=== PATIENT | male | born 1935 | race Caucasian/White ===

== ENCOUNTER 2020-06-08 13:54 | Inpatient (IN) | payer MEDICARE ==
--- NOTE | 2020-06-08 13:57 | ERPHSYRPT ---
- History of Present Illness Time Seen by Provider: 06/08/20 13:57 Source: patient, family Exam Limitations: clinical condition Physician History: This is an 84-year-old white male who has a history of hypertension and ? Atrial fibrillation on clonidine, lisinopril and diltiazem. He presents with increasing shortness of air over the last several days. Patient has significant generalized arthritis and is seen by pain specialist. The patient does experience shortness of breath with his intake of narcotic pain medicine. He has had increased the use of his pain medication the last several days. Patient is a patient of Dr. Leavitt. He has seen Dr. Duncan in the past. Patient's medication list does not appear to include an anticoagulation medication. Patient denies chest pain. He denies abdominal pain. Timing/Duration: day(s) Severity of Dyspnea-Max: moderate Severity of Dyspnea-Current: moderate Possible Cause: occasional episodes Modifying Factors: Improves With: activity, exertion Associated Symptoms: leg swelling, No chest pain/discomfort Allergies/Adverse Reactions: No Known Allergies Allergy (Verified 06/08/20 14:16) Home Medications: Acebutolol 200 mg [Sectral 200 MG] 200 mg PO DAILY 06/08/20 [History] Aspirin 81 gm Chew [Baby Aspirin 81 mg Chew] 81 mg PO DAILY 06/08/20 [History] Diltiazem HCl [Diltiazem 12Hr ER] 60 mg PO BID 06/08/20 [History] Hydrochlorothiazide 500 mg PO DAILY 06/08/20 [History] Hydrocodone Bit/Acetaminophen [Reliance 10-325 Tablet] 10 mg PO TID 06/08/20 [History] Lisinopril 10 mg [Zestril 10 MG] 10 mg PO DAILY 06/08/20 [History] Sertraline HCl 100 mg PO DAILY 06/08/20 [History] cloNIDine HCL [Clonidine HCl] 0.1 mg PO DAILY 06/08/20 [History] Travel Risk - International Travel Have you traveled outside of the country in past 3 weeks: No - Coronavirus Screening Are you exhibiting any of the following symptoms?: No Close contact with a COVID-19 positive Pt in past 14-21 Days: No - Review of Systems Constitutional: No Symptoms Eyes: No Symptoms Ears, Nose, & Throat: No Symptoms Respiratory: Dyspnea Cardiac: No Symptoms Abdominal/Gastrointestinal: No Symptoms Genitourinary Symptoms: No Symptoms Musculoskeletal: No Symptoms Skin: No Symptoms Neurological: No Symptoms Psychological: No Symptoms Endocrine: No Symptoms Hematologic/Lymphatic: No Symptoms Immunological/Allergic: No Symptoms All Other Systems: Reviewed and Negative - Nursing Vital Signs Nursing Vital Signs: Initial Vital Signs Temperature 98.0 F 06/08/20 13:54 Pulse Rate 106 H 06/08/20 13:54 Respiratory Rate 29 H 06/08/20 13:54 Blood Pressure 161/117 06/08/20 13:54 O2 Sat by Pulse Oximetry 95 06/08/20 13:54 Pain Scale Pain Intensity 6 - Physical Exam General Appearance: mild distress, alert, anxiety Eye Exam: PERRL/EOMI, eyes nml inspection Ears, Nose, Throat Exam: hearing grossly normal, normal ENT inspection, normal pharynx Neck Exam: normal inspection, non-tender, supple, full range of motion Respiratory Exam: normal breath sounds, lungs clear, respiratory distress, airway intact (Mild), No chest tenderness Cardiovascular/Chest Exam: irregular Abdominal/Gastrointestinal Exam: soft, normal bowel sounds, No tenderness Rectal Exam: not done Extremity Exam: non-tender, normal range of motion, pedal edema (Bilateral ankles) Neurologic Exam: alert, oriented x 3, cooperative, surplus property disposal agent II-XII nml as tested, normal mood/affect, nml cerebellar function, nml station & gait, sensation nml Skin Exam: normal color, warm, dry Lymphatic Exam: No adenopathy SpO2 Interpretation: hypoxic O2 Delivery: Room Air - Course Nursing assessment & vital signs reviewed: Yes EKG Interpreted by Me: RATE (91), A-fib, Other (No comparison EKG available) Ordered Tests: Active Orders 24 hr Category Date Time Status Document Management Specialist STAT Care 06/08/20 14:14 Active EKG-ER Only STAT Care 06/08/20 14:13 Active IV Insertion STAT Care 06/08/20 14:13 Active IV Insertion-2nd Peripheral STAT Care 06/08/20 16:34 Active Oxygen-ED Only Nasal Cannula 2 lpm Care 06/08/20 14:13 Active Pulse Oximetry (ED) STAT Care 06/08/20 14:18 Active CHEST 1 VIEW (PORTABLE) Stat Exams 06/08/20 14:13 Taken CHEST WITH CONTRAST [CT] Stat Exams 06/08/20 15:08 Taken ABG [ARTERIAL BLOOD GASES] Urgent Lab 06/08/20 16:40 Completed CBC W DIFF Stat Lab 06/08/20 14:00 Completed CMP Stat Lab 06/08/20 14:00 Completed D-DIMER QUANTITATIVE Stat Lab 06/08/20 14:00 Completed MAGNESIUM Stat Lab 06/08/20 14:00 Completed NT PRO BNP Stat Lab 06/08/20 14:00 Completed TROPONIN Q3H Lab 06/08/20 14:00 Completed TROPONIN Q3H Lab 06/08/20 17:15 Completed TROPONIN Q3H Lab 06/08/20 20:15 Ordered TROPONIN Q3H Lab 06/08/20 23:15 Ordered TROPONIN Q3H Lab 06/09/20 02:15 Ordered BiPap/CPAP STAT RT 06/08/20 16:50 Active Respiratory Therapy Assessment DAILY RT 06/08/20 16:51 Completed Transfer Order Routine Transfer 06/08/20 Ordered Medication Summary Discontinued Medications Generic Name Dose Route Start Last Admin Trade Name Freq PRN Reason Stop Dose Admin Albuterol/Ipratropium Confirm 06/08/20 16:20 Duoneb 0.5-3 Mg/3 Ml Neb Administered 06/08/20 16:21 Dose 3 ml IH .STK-MED ONE Albuterol/Ipratropium 3 ml 06/08/20 16:51 06/08/20 16:20 Duoneb 0.5-3 Mg/3 Ml Neb IH 06/08/20 16:52 3 ml STAT ONE Administration Furosemide 40 mg 06/08/20 15:09 06/08/20 16:04 Lasix 40 Mg/4 Ml IV 06/08/20 15:10 40 mg STAT ONE Administration Furosemide Confirm 06/08/20 16:00 Lasix 40 Mg/4 Ml Administered 06/08/20 16:01 Dose 40 mg .ROUTE .STK-MED ONE Morphine Sulfate 2 mg 06/08/20 14:52 06/08/20 15:03 Morphine Sulfate 2 Mg Inj IV 06/08/20 14:53 2 mg STAT ONE Administration Morphine Sulfate Confirm 06/08/20 14:59 Morphine Sulfate 2 Mg Inj Administered 06/08/20 15:00 Dose 2 mg .ROUTE .STK-MED ONE Morphine Sulfate 2 mg 06/08/20 17:17 06/08/20 17:38 Morphine Sulfate 2 Mg Inj IV 06/08/20 17:18 2 mg STAT ONE Administration Morphine Sulfate Confirm 06/08/20 17:31 Morphine Sulfate 2 Mg Inj Administered 06/08/20 17:32 Dose 2 mg .ROUTE .STK-MED ONE Nitroglycerin 0.4 mg 06/08/20 16:35 06/08/20 16:37 Nitrostat 0.4 Mg Tablet SL 06/08/20 16:36 0.4 mg STAT ONE Administration Ondansetron HCl 4 mg 06/08/20 14:53 06/08/20 15:02 Zofran 4 Mg/2 Ml Vial IV 06/08/20 14:54 4 mg STAT ONE Administration Ondansetron HCl Confirm 06/08/20 14:59 Zofran 4 Mg/2 Ml Vial Administered 06/08/20 15:00 Dose 4 mg .ROUTE .STK-MED ONE Lab/Rad Data: Laboratory Result Diagrams 06/08/20 14:00 06/08/20 14:00 Laboratory Results 06/08/20 06/08/20 06/08/20 Range/Units 17:15 16:40 16:39 WBC (4.0-10.5) K/mm3 RBC (4.1-5.6) M/mm3 Hgb (12.5-18.0) gm/dl Hct (42-50) % MCV (78-100) fl MCH (26-32) pg MCHC (32-36) g/dl RDW (11.5-14.0) % Plt Count (150-450) K/mm3 MPV (7.5-11.0) fl Gran % (36.0-66.0) % Eos # (Auto) (0-0.5) Absolute Lymphs (auto) (1.0-4.6) Absolute Monos (auto) (0.0-1.3) Lymphocytes % (24.0-44.0) % Monocytes % (0.0-12.0) % Eosinophils % (0.00-5.0) % Basophils % (0.0-0.4) % Absolute Granulocytes (1.4-6.9) Basophils # (0-0.4) D-Dimer (215-500) ng/mL Puncture Site LEFT RADIAL pCO2 53 H (35-45) mmHg pO2 96 (75-100) mmHg Base Excess 8.2 H (-2.0-2.0) O2 Saturation 96.4 (94-100) g/dF ABG pH 7.42 (7.35-7.45) ABG HCO3 34.4 H* (22-28) ABG O2 Sat (Measured) 96.5 (95-100) % Luis Enrique Test YES A-a Gradient 194 a/A Ratio 0.33 Hemoglobin 11.3 Carboxyhemoglobin 0.1 (0.0-6.9) % THgb Methemoglobin 0.0 L (1.4-1.5) % Temperature 37.0 C POC O2 Flow Rate 50 % Vent Mode BiPAP Inspiratory BiPAP 14 Expiratory BiPAP 7 Sodium (137-145) mmol/L Potassium 3.8 (3.5-5.1) mmol/L Chloride (98-107) mmol/L Carbon Dioxide (22-30) mmol/L Anion Gap (5-15) MEQ/L BUN (9-20) mg/dL Creatinine (0.66-1.25) mg/dL Estimated GFR ML/MIN Glucose (74-106) mg/dL Calcium (8.4-10.2) mg/dL Magnesium (1.6-2.3) mg/dL Total Bilirubin (0.2-1.3) mg/dL AST (17-59) U/L ALT (0-50) U/L Alkaline Phosphatase (38-126) U/L Troponin I < 0.012 (0.000-0.034) ng/mL NT-Pro-B Natriuret Pep (0-1800) pg/mL Serum Total Protein (6.3-8.2) g/dL Albumin (3.5-5.0) g/dL SARS-CoV-2 (PCR) POSITIVE A (NEGATIVE) 06/08/20 06/08/20 06/08/20 Range/Units 14:00 14:00 14:00 WBC (4.0-10.5) K/mm3 RBC (4.1-5.6) M/mm3 Hgb (12.5-18.0) gm/dl Hct (42-50) % MCV (78-100) fl MCH (26-32) pg MCHC (32-36) g/dl RDW (11.5-14.0) % Plt Count (150-450) K/mm3 MPV (7.5-11.0) fl Gran % (36.0-66.0) % Eos # (Auto) (0-0.5) Absolute Lymphs (auto) (1.0-4.6) Absolute Monos (auto) (0.0-1.3) Lymphocytes % (24.0-44.0) % Monocytes % (0.0-12.0) % Eosinophils % (0.00-5.0) % Basophils % (0.0-0.4) % Absolute Granulocytes (1.4-6.9) Basophils # (0-0.4) D-Dimer 2307 H* (215-500) ng/mL Puncture Site pCO2 (35-45) mmHg pO2 (75-100) mmHg Base Excess (-2.0-2.0) O2 Saturation (94-100) g/dF ABG pH (7.35-7.45) ABG HCO3 (22-28) ABG O2 Sat (Measured) (95-100) % Luis Enrique Test A-a Gradient a/A Ratio Hemoglobin Carboxyhemoglobin (0.0-6.9) % THgb Methemoglobin (1.4-1.5) % Temperature C POC O2 Flow Rate % Vent Mode Inspiratory BiPAP Expiratory BiPAP Sodium 138 (137-145) mmol/L Potassium 4.0 (3.5-5.1) mmol/L Chloride 99 (98-107) mmol/L Carbon Dioxide 36 H (22-30) mmol/L Anion Gap 7.5 (5-15) MEQ/L BUN 17 (9-20) mg/dL Creatinine 0.91 (0.66-1.25) mg/dL Estimated GFR > 60.0 ML/MIN Glucose 95 (74-106) mg/dL Calcium 9.6 (8.4-10.2) mg/dL Magnesium 2.1 (1.6-2.3) mg/dL Total Bilirubin 0.90 (0.2-1.3) mg/dL AST 34 (17-59) U/L ALT 39 (0-50) U/L Alkaline Phosphatase 63 (38-126) U/L Troponin I < 0.012 (0.000-0.034) ng/mL NT-Pro-B Natriuret Pep 2750 H (0-1800) pg/mL Serum Total Protein 7.9 (6.3-8.2) g/dL Albumin 4.6 (3.5-5.0) g/dL SARS-CoV-2 (PCR) (NEGATIVE) 06/08/20 Range/Units 14:00 WBC 8.9 (4.0-10.5) K/mm3 RBC 4.84 (4.1-5.6) M/mm3 Hgb 11.8 L (12.5-18.0) gm/dl Hct 40.6 L (42-50) % MCV 83.9 (78-100) fl MCH 24.4 L (26-32) pg MCHC 29.1 L (32-36) g/dl RDW 17.9 H (11.5-14.0) % Plt Count 408 (150-450) K/mm3 MPV 9.2 (7.5-11.0) fl Gran % 60.2 (36.0-66.0) % Eos # (Auto) 0.28 (0-0.5) Absolute Lymphs (auto) 1.73 (1.0-4.6) Absolute Monos (auto) 1.47 H (0.0-1.3) Lymphocytes % 19.4 L (24.0-44.0) % Monocytes % 16.5 H (0.0-12.0) % Eosinophils % 3.1 (0.00-5.0) % Basophils % 0.8 (0.0-0.4) % Absolute Granulocytes 5.36 (1.4-6.9) Basophils # 0.07 (0-0.4) D-Dimer (215-500) ng/mL Puncture Site pCO2 (35-45) mmHg pO2 (75-100) mmHg Base Excess (-2.0-2.0) O2 Saturation (94-100) g/dF ABG pH (7.35-7.45) ABG HCO3 (22-28) ABG O2 Sat (Measured) (95-100) % Luis Enrique Test A-a Gradient a/A Ratio Hemoglobin Carboxyhemoglobin (0.0-6.9) % THgb Methemoglobin (1.4-1.5) % Temperature C POC O2 Flow Rate % Vent Mode Inspiratory BiPAP Expiratory BiPAP Sodium (137-145) mmol/L Potassium (3.5-5.1) mmol/L Chloride (98-107) mmol/L Carbon Dioxide (22-30) mmol/L Anion Gap (5-15) MEQ/L BUN (9-20) mg/dL Creatinine (0.66-1.25) mg/dL Estimated GFR ML/MIN Glucose (74-106) mg/dL Calcium (8.4-10.2) mg/dL Magnesium (1.6-2.3) mg/dL Total Bilirubin (0.2-1.3) mg/dL AST (17-59) U/L ALT (0-50) U/L Alkaline Phosphatase (38-126) U/L Troponin I (0.000-0.034) ng/mL NT-Pro-B Natriuret Pep (0-1800) pg/mL Serum Total Protein (6.3-8.2) g/dL Albumin (3.5-5.0) g/dL SARS-CoV-2 (PCR) (NEGATIVE) - Progress Progress: improved Air Movement: good Progress Note: 06/08/20 17:11 CAT scan of the chest with contrast shows no evidence of pulmonary embolism. There are moderate bilateral pleural effusions. There is pulmonary edema present. There is also mild cardiomegaly. Medical decision making: I did discuss this patient and the patient's history and condition with Dr. Matthews. I also reviewed the patient's x-ray results and laboratory results. In addition I reviewed the EKG findings with her. I informed her that the patient is on BiPAP currently and is stabilizing on this mode of treatment. I gave her the results of the blood gas. We are awaiting the results of the rapid COVID-[address] Matthews accepts the patient for admission as long as the COVID-19 test is negative. If it is positive we will need to call the hospitalist on-call covering for COVID-19 positive patients. 06/08/20 17:51 This patient tested Covid positive. Therefore we canceled the admission with Dr. Han and then contacted Dr. Lawrence who is covering for the Covid unit. I reviewed the patient history, condition, laboratory results, EKG findings and x- ray results. Blood Culture(s) Obtained: No Antibiotics given: No Discussed with : Jaron Will see patient in: hospital (full admit) Counseled pt/family regarding: lab results, diagnosis, need for follow-up, rad results - Departure Departure Disposition: In-patient Admission Clinical Impression: CHF (congestive heart failure), Pleural effusion, Lab test positive for detection of COVID-19 virus Condition: Fair Critical Care Time: Yes Critical Care Time(excluding separately billable procedures): Critical 30-74 mins Referrals: MANJIT LEAVITT MD [Primary Care Provider] - Instructions: Heart Failure
[2020-06-08 14:37] LABS: Absolute Neutrophil Ct (ANC) 5.36 (1.4-6.9); BASOPHIL % 0.8 % (0.0-0.4); Basophil (Absolute #) 0.07 (0-0.4); Eosinophil % 3.1 % (0.00-5.0); Eosinophil (Absolute #) 0.28 (0-0.5); Hematocrit 40.6 % (42-50); Hemoglobin 11.8 gm/dl (12.5-18.0); Lymphocyte (Absolute #) 1.73 (1.0-4.6); Lymphocytes % 19.4 % (24.0-44.0); Mean Cell Volume 83.9 fl (78-100); Mean Corpuscular Hemoglobin 24.4 pg (26-32); Mean Corpuscular Hgb Concent. 29.1 g/dl (32-36); Mean Platelet Volume 9.2 fl (7.5-11.0); Monocyte (Absolute #) 1.47 (0.0-1.3); Monocytes % 16.5 % (0.0-12.0); Neutrophil % 60.2 % (36.0-66.0); Platelet Count 408 K/mm3 (150-450); Red Blood Count 4.84 M/mm3 (4.1-5.6); Red Cell Distribution Width 17.9 % (11.5-14.0); White Blood Count 8.9 K/mm3 (4.0-10.5)
[2020-06-08] MEDS ORDERED: MORPHINE SULFATE 2 MG INJ IV ONE ×2 (14:52→17:17)
[2020-06-08] MEDS ORDERED: Zofran 4 MG/2 ML VIAL IV ONE (14:53)
[2020-06-08 14:58] LABS: ALBUMIN 4.6 g/dL (3.5-5.0); ALKALINE PHOSPHATASE 63 U/L (38-126); ANION GAP 7.5 MEQ/L (5-15); BLOOD UREA NITROGEN 17 mg/dL (9-20); CHLORIDE 99 mmol/L (98-107); Calcium 9.6 mg/dL (8.4-10.2); Carbon Dioxide 36 mmol/L (22-30); Creatinine 1 0.91 mg/dL (0.66-1.25); EST GLOMERULAR FILTRATION RATE > 60.0 ML/MIN; Glucose 95 mg/dL (74-106); MAGNESIUM 2.1 mg/dL (1.6-2.3); NT PRO BNP 2750 pg/mL (0-1800); SGOT/AST 34 U/L (17-59); SGPT/ALT 39 U/L (0-50); SODIUM 138 mmol/L (137-145); Total Protein 7.9 g/dL (6.3-8.2)
[2020-06-08] MEDS ORDERED: MORPHINE SULFATE 2 MG INJ ONE ×2 (14:59→17:31)
[2020-06-08] MEDS ORDERED: Zofran 4 MG/2 ML VIAL ONE (14:59)
[2020-06-08] MEDS ORDERED: Lasix 40 MG/4 ML IV ONE (15:09)
[2020-06-08] MEDS ORDERED: Lasix 40 MG/4 ML ONE (16:00)
[2020-06-08] MEDS ORDERED: DUONEB 0.5-3 MG/3 ml Neb IH ONE ×2 (16:20→16:51)
[2020-06-08] MEDS ORDERED: Nitrostat 0.4 MG Tablet SL ONE (16:35)
[2020-06-08 16:52] LABS: A-aADO2 194; ABG HEMOGLOBIN 11.3; ABG POTASSIUM 3.8 (3.5-5.1); ARTERIAL BLD GAS O2 SATURATION 96.5 % (95-100); ARTERIAL BLOOD GAS BASE EXCESS 8.2 (-2.0-2.0); ARTERIAL BLOOD GAS FIO2 50 %; ARTERIAL BLOOD GAS PCO2 53 mmHg (35-45); ARTERIAL BLOOD GAS PO2 96 mmHg (75-100); ARTERIAL BLOOD GAS VENT MODE BiPAP; ARTERIAL BLOOD GAS pH 7.42 (7.35-7.45); CARBOXYHEMOGLOBIN 0.1 % THgb (0.0-6.9); HCO3- 34.4 (22-28); HGB O2 SAT 96.4 g/dF (94-100); paO2 pAO1 0.33
[2020-06-08 16:53] LABS: ABG SITE LEFT RADIAL; ALLEN TEST OK? YES
[2020-06-08] MEDS ORDERED: TYLENOL 325 MG PO PRN (19:38)
[2020-06-08] MEDS ORDERED: Lasix 40 MG/4 ML IV SCH (19:38)
[2020-06-08] MEDS ORDERED: Sodium Chloride 0.9% 1000 ML 1,000 ML IV SCH (19:38)
[2020-06-08] MEDS ORDERED: Zofran 4 MG/2 ML VIAL IV PRN (19:38)
--- NOTE | 2020-06-08 20:19 | XRAY ---
Indication: Short of breath. Elevated d-dimer. Multiple contiguous axial images obtained through the chest using 100 cc SUV 370 contrast and PE protocol. Comparison: None There is satisfactory opacification of the pulmonary arteries. However diffuse respiration artifact limits evaluation of the more distal lobar and segmental branches. No central pulmonary embolus. Moderate bilateral pleural effusions with mild bibasilar compressive atelectasis. Heart is enlarged. Aorta is mildly arteriosclerotic without aneurysm. No pathologic mediastinal lymphadenopathy. Bony thorax intact osteopenia, mild/moderate degenerative changes throughout the spine, old right rib fractures, and bilateral shoulder arthroplasty. Limited upper abdomen including adrenal glands are unremarkable. Impression: 1. Pulmonary embolus evaluation limited by respiration artifact. No large central pulmonary embolus. 2. Cardiomegaly and moderate bilateral pleural effusions favoring cardiac decompensation/fluid overload. Superimposed pneumonia not completely excluded. 3. Chronic bony findings. Comment: Preliminary interpretation was made by [facility]. No critical discrepancy.
--- NOTE | 2020-06-08 20:21 | XRAY ---
Indication: Short of breath. Comparison: None Portable chest demonstrates cardiomegaly, vascular congestion, and moderate bilateral pleural effusions favoring cardiac decompensation. Superimposed pneumonia not completely excluded. Incidental osteopenia, multilevel degenerative spondylosis, old right rib fractures, and bilateral shoulder arthroplasty.
[2020-06-08] MEDS ORDERED: Norco 10/325 MG Tablet PO PRN (20:24)
[2020-06-08] MEDS ORDERED: Sodium Chloride 0.9% 250 ML 250 ML IV ONE (21:30)
[2020-06-08] MEDS ORDERED: ENOXAPARIN SODIUM SQ SCH ×2 (22:00)
[2020-06-08] MEDS ORDERED: Cardizem 30 MG PO SCH (22:00)
[2020-06-08] MEDS ORDERED: REMDESIVIR 200 MG in Sodium Chloride 0.9% 500 ML 250 ML IV ONE (22:00)
[2020-06-08] MEDS ORDERED: Decadron 4 MG INJ IV SCH (22:00)
[2020-06-08] MEDS: Lasix 40 MG/4 ML IV SCH (23:25)
[2020-06-09 03:58] LABS: Absolute Neutrophil Ct (ANC) 8.61 (1.4-6.9); BASOPHIL % 0.2 % (0.0-0.4); Basophil (Absolute #) 0.02 (0-0.4); Eosinophil % 0.1 % (0.00-5.0); Eosinophil (Absolute #) 0.01 (0-0.5); Hematocrit 40.2 % (42-50); Lymphocyte (Absolute #) 0.63 (1.0-4.6); Lymphocytes % 6.7 % (24.0-44.0); Mean Cell Volume 83.1 fl (78-100); Mean Corpuscular Hemoglobin 24.8 pg (26-32); Mean Corpuscular Hgb Concent. 29.9 g/dl (32-36); Mean Platelet Volume 9.2 fl (7.5-11.0); Monocyte (Absolute #) 0.09 (0.0-1.3); Platelet Count 381 K/mm3 (150-450); Red Blood Count 4.84 M/mm3 (4.1-5.6); Red Cell Distribution Width 17.7 % (11.5-14.0); White Blood Count 9.4 K/mm3 (4.0-10.5)
[2020-06-09 04:03] LABS: ALBUMIN 4.4 g/dL (3.5-5.0); ALKALINE PHOSPHATASE 69 U/L (38-126); ANION GAP 11.6 MEQ/L (5-15); BLOOD UREA NITROGEN 16 mg/dL (9-20); CHLORIDE 96 mmol/L (98-107); Calcium 9.5 mg/dL (8.4-10.2); Carbon Dioxide 33 mmol/L (22-30); Creatinine 1 0.88 mg/dL (0.66-1.25); EST GLOMERULAR FILTRATION RATE > 60.0 ML/MIN; Glucose 146 mg/dL (74-106); Potassium 3.7 mmol/L (3.5-5.1); SGOT/AST 34 U/L (17-59); SGPT/ALT 36 U/L (0-50); SODIUM 138 mmol/L (137-145); Total Protein 7.6 g/dL (6.3-8.2)
[2020-06-09 05:38] LABS: A-aADO2 106; ABG HEMOGLOBIN 11.6; ABG POTASSIUM 3.4 (3.5-5.1); ABG SITE LEFT BRACHIAL; ARTERIAL BLD GAS O2 SATURATION 96.5 % (95-100); ARTERIAL BLOOD GAS FIO2 36 %; ARTERIAL BLOOD GAS PCO2 49 mmHg (35-45); ARTERIAL BLOOD GAS PO2 89 mmHg (75-100); ARTERIAL BLOOD GAS pH 7.51 (7.35-7.45); HCO3- 39.1 (22-28); HGB O2 SAT 96.5 g/dF (94-100); paO2 pAO1 0.46
[2020-06-09] MEDS: Lasix 40 MG/4 ML IV SCH (07:46)
[2020-06-09] MEDS ORDERED: NORCO 7.5/325 MG TAB PO PRN (09:52)
[2020-06-09] MEDS ORDERED: Zestril 10 MG PO SCH (10:00)
[2020-06-09] MEDS ORDERED: MSIR 15 MG PO SCH (10:00)
[2020-06-09] MEDS ORDERED: SECTRAL 200 MG PO SCH (10:00)
[2020-06-09] MEDS ORDERED: hydroDIURIL 25 MG PO SCH (10:00)
[2020-06-09] MEDS ORDERED: MORPHINE SULFATE 30 MG PO SCH (10:00)
[2020-06-09] MEDS ORDERED: NON-FORMULARY ITEM (Lisinopril [Lisinopril] 40 MG) PO SCH (10:00)
[2020-06-09] MEDS ORDERED: Decadron 4 MG INJ IV SCH (10:00)
[2020-06-09] MEDS ORDERED: Ativan 1 MG PO SCH (10:00)
[2020-06-09] MEDS ORDERED: Catapres 0.1 MG PO SCH (10:00)
[2020-06-09] MEDS: Zestril 20 MG PO SCH (10:27)
[2020-06-09] MEDS: ECOTRIN 81 MG PO SCH (10:28)
[2020-06-09] MEDS: hydroDIURIL 25 MG PO SCH (10:28)
[2020-06-09] MEDS: Catapres 0.1 MG PO SCH (10:28)
[2020-06-09] MEDS: SECTRAL 200 MG PO SCH ×2 (10:29→17:44)
[2020-06-09] MEDS: Pepcid 20 MG PO SCH (10:29)
[2020-06-09] MEDS: Ms Contin 15 MG PO SCH (10:29)
[2020-06-09] MEDS: Cardizem CD 180 MG PO SCH (10:29)
[2020-06-09] MEDS: ZOLOFT 50 MG TABLET PO SCH (10:30)
[2020-06-09] MEDS: Protonix 40MG Tablet PO SCH (10:30)
[2020-06-09] MEDS ORDERED: Ativan 2 MG/1 ML VIAL IV ONE (13:20)
[2020-06-09] MEDS ORDERED: Seroquel 100 MG PO ONE (14:09)
[2020-06-09] MEDS ORDERED: BENADRYL 50 MG/ML IV ONE (15:38)
[2020-06-09] MEDS ORDERED: Lanoxin 0.5 MG/2 ML INJECTION IV ONE ×4 (16:40→21:00)
[2020-06-09] MEDS ORDERED: Haldol 5 MG IM ONE (16:47)
[2020-06-09] MEDS ORDERED: MORPHINE SULFATE 10 MG/ML IV ONE (17:00)
[2020-06-09] MEDS: REMDESIVIR 100 MG in Sodium Chloride 0.9% 100 ML IVPB 100 ML IV SCH (18:09)
[2020-06-09] MEDS: ENOXAPARIN SODIUM SQ SCH (23:04)
[2020-06-10] MEDS: Catapres 0.1 MG PO SCH ×3 (01:46→21:25)
[2020-06-10] MEDS: Ms Contin 15 MG PO SCH ×3 (01:46→21:24)
[2020-06-10] MEDS: Protonix 40MG Tablet PO SCH ×3 (01:47→21:25)
[2020-06-10] MEDS: Cardizem CD 180 MG PO SCH ×3 (01:47→21:24)
[2020-06-10] MEDS: SECTRAL 200 MG PO SCH ×4 (01:47→21:25)
[2020-06-10 05:28] LABS: INR 1.56 (0.8-3.0); PROTIME 17.7 SECONDS (8.83-12.87)
[2020-06-10 05:35] LABS: ALBUMIN 3.1 g/dL (3.5-5.0); ALKALINE PHOSPHATASE 43 U/L (38-126); ANION GAP 5.8 MEQ/L (5-15); BLOOD UREA NITROGEN 26 mg/dL (9-20); CHLORIDE 98 mmol/L (98-107); Calcium 8.5 mg/dL (8.4-10.2); Carbon Dioxide 36 mmol/L (22-30); EST GLOMERULAR FILTRATION RATE > 60.0 ML/MIN; Glucose 120 mg/dL (74-106); Potassium 3.8 mmol/L (3.5-5.1); SGOT/AST 39 U/L (17-59); SGPT/ALT 26 U/L (0-50); SODIUM 136 mmol/L (137-145); Total Protein 5.5 g/dL (6.3-8.2)
[2020-06-10] MEDS: hydroDIURIL 25 MG PO SCH (11:02)
[2020-06-10] MEDS: Pepcid 20 MG PO SCH (11:02)
[2020-06-10] MEDS: Zestril 20 MG PO SCH (11:02)
[2020-06-10] MEDS: ECOTRIN 81 MG PO SCH (11:03)
[2020-06-10] MEDS: LASIX 20 MG PO SCH (11:03)
[2020-06-10] MEDS: ENOXAPARIN SODIUM SQ SCH ×2 (11:04→21:25)
[2020-06-10] MEDS: ZOLOFT 50 MG TABLET PO SCH (11:04)
[2020-06-10 11:13] LABS: Hematocrit 34.4 % (42-50); Hemoglobin 10.1 gm/dl (12.5-18.0); Mean Cell Volume 85.1 fl (78-100); Mean Corpuscular Hgb Concent. 29.4 g/dl (32-36); Mean Platelet Volume 9.6 fl (7.5-11.0); Platelet Count 340 K/mm3 (150-450); Red Blood Count 4.04 M/mm3 (4.1-5.6); Red Cell Distribution Width 17.4 % (11.5-14.0); White Blood Count 11.4 K/mm3 (4.0-10.5)
[2020-06-10] MEDS: Lanoxin 0.125MG TABLET PO SCH (11:30)
--- NOTE | 2020-06-10 11:54 | XRAY ---
Indication: Cough. CHF. Positive Covid 19. Comparison: June 08, 2020. Portable chest demonstrates diminished cardiomegaly and vascular congestion now within normal limits. Also diminished bibasilar effusions with mild/moderate residual. No new cardiopulmonary abnormalities. Impression: Cardiac decompensation/CHF improvement. Again superimposed pneumonia not completely excluded.
--- NOTE | 2020-06-10 13:40 | HP ---
CHIEF COMPLAINT: "Can't get my breath". HISTORY OF PRESENT ILLNESS: The patient is an 84 year old white male who said that he has been feeling bad for the last few weeks. The last couple of days he has been very short of breath and tonight it got worse and he came into the emergency room. He has chronic atrial fibrillation which has been controlled. He is not anticoagulated with anything other than baby aspirin however. He denies any high fever, chills, nausea, vomiting, change in bowel movements or change in taste. However his COVID test was positive in the emergency room. MEDICATIONS: Sectrol 200 q.d., baby aspirin 81 q.d., diltiazem extended release 60 b.i.d., hydrochlorothiazide 50 q.d., Vicodin 10/325 mg 1 every 8 hours, Lisinopril 10 q.d., Zoloft 100 q.d., clonidine 0.1 q.d. ALLERGIES: NKDA. RISK FACTORS: The patient has not been exposed that he knows of, has not traveled outside of the country or really outside of [place]. He does not where he might get COVID. REVIEW OF SYSTEMS: HEENT: Seems to hear and see okay. He has to have glasses to see the television. CHEST: Denies any chest pain. He denies any heart attacks. States he has atrial fibrillation. ABDOMEN: No nausea or vomiting. BACK: Arthritis of back. EXTREMITIES: Arthritis of knees. Takes Vicodin for that. PHYSICAL EXAMINATION: VITAL SIGNS: Temperature 98F, pulse 106, respirations 29, blood pressure 161/117. O2 saturation was 95% initially. GENERAL: The patient is alert, orientated, appropriately healthy looking 84 year old man who is calm and collected after he came through the emergency room. HEENT: Eyes - Pupils equal and reactive to light, sees fair. NECK: No JVD. CHEST: Few crackles bilateral. CVS: Slightly irregular. No murmurs. ABDOMEN: Soft. No masses or organomegaly. NEURO: He is alert and orientated. Heel to toe normal. Nitrating Acid Mixer equal. SKIN: No skin ulcers or bleeding. EXTREMITIES: Fair pulses. No edema. LAB DATA AND TESTS: While in the emergency room the patient's O2 saturation did drop under 70. His blood pressure went up. He responded to some morphine and Lasix. Chest x-ray showed bilateral infiltrate most likely heart failure. White count is normal. D-dimer is markedly elevated. Electrolytes are normal. The pH is 7.4, pO2 53, HCO3 34.4, base excess 8. Cardiac enzymes were negative. His D-dimer is markedly elevated at 2,300. Creatinine 0.91. Electrolytes normal. BNP markedly elevated at 2750. IMPRESSION: 1) Acute congestive heart failure. 2) Atrial fibrillation. 3) Acute COVID. PLAN: The patient responded well to oxygen, Lasix and morphine along with his regular medication. Will go ahead and start him on COVID pneumonia medications as may help particularly if there is congestive heart failure or COVID pneumonia. I will start him on some Decadron, Remdesivir, Lovenox. PROGNOSIS: Fair, will see in the morning.
--- NOTE | 2020-06-10 14:21 | PROG NOTE ---
CHIEF COMPLAINT: Severe agitation, rapid atrial fibrillation, COVID. HISTORY: The patient was seen this morning and was alert and orientated. He had to call the final block press operator to ask to be sent to the cafeteria for breakfast. He knew who I was but was very shaky and jittery. He said he could not sleep. As the day has gone on he has not slept despite giving him some oral Ativan and then some Seroquel because he became more agitated and confused. He had a jerking all over however he had this before any medications. I do not think its EPS (extrapyramidal symptom) but more related to stress. He is in atrial fibrillation at 120 to 150. I assume this is chronic although he was partially anticoagulated and put him back on his beta randall and Cardizem. On exam this evening [id number], he had some rales bilateral, did not seem to be in any respiratory distress. Heart was irregular and fast about 150. He has good strength all four extremities. He did have an intention tremor and some flappy movements. ADDITIONAL HISTORY: I called Mrs. Mcduffie up and stated that no one ever told them that he was in atrial fibrillation. He was short of breath for a week and saw Dr. Salazar, Pain Specialist, who decided to switch him off morphine, thought that might be a cause of it. But I initially thought chronic condition because he was on a beta randall and Cardizem. His CT scan showed some cardiomegaly as well as heart failure. IMPRESSION: The patient has: 1) Acute delirium multifactorial secondary probably to changed environment, possible the Decadron, age, isolation, chronic anxiety. 2) Tremor due to agitation. 3) Acute heart failure, controlled. 4) Atrial fibrillation with rapid rate 150. PLAN: Will try Haldol since the Seroquel did not work. Will try 5 mg of morphine just because he had been off of it for a few days though he did get some oral this morning. He is used to 15 mg a day. Will fully anticoagulated him since he is probably in chronic atrial fibrillation. Discontinue the Decadron due to delirium and rapid heart rate. Repeat the COVID test because his said he has not been out of the house and no one has visited them. She just goes to the store from time to time and she is completely asymptomatic.
[2020-06-10] MEDS: REMDESIVIR 100 MG in Sodium Chloride 0.9% 100 ML IVPB 100 ML IV SCH (15:15)
[2020-06-11 05:10] LABS: Absolute Neutrophil Ct (ANC) 7.25 (1.4-6.9); BASOPHIL % 0.5 % (0.0-0.4); Basophil (Absolute #) 0.06 (0-0.4); Eosinophil % 2.7 % (0.00-5.0); Eosinophil (Absolute #) 0.32 (0-0.5); Hematocrit 37.4 % (42-50); Hemoglobin 10.8 gm/dl (12.5-18.0); Lymphocyte (Absolute #) 2.66 (1.0-4.6); Lymphocytes % 22.1 % (24.0-44.0); Mean Cell Volume 84.4 fl (78-100); Mean Corpuscular Hemoglobin 24.4 pg (26-32); Mean Corpuscular Hgb Concent. 28.9 g/dl (32-36); Mean Platelet Volume 9.1 fl (7.5-11.0); Monocyte (Absolute #) 1.74 (0.0-1.3); Monocytes % 14.5 % (0.0-12.0); Neutrophil % 60.2 % (36.0-66.0); Platelet Count 330 K/mm3 (150-450); Red Blood Count 4.43 M/mm3 (4.1-5.6); Red Cell Distribution Width 17.5 % (11.5-14.0)
[2020-06-11 05:23] LABS: INR 1.39 (0.8-3.0); PROTIME 15.8 SECONDS (8.83-12.87)
[2020-06-11 05:26] LABS: ALBUMIN 3.3 g/dL (3.5-5.0); ALKALINE PHOSPHATASE 46 U/L (38-126); ANION GAP 3.9 MEQ/L (5-15); BLOOD UREA NITROGEN 27 mg/dL (9-20); CHLORIDE 99 mmol/L (98-107); Calcium 8.7 mg/dL (8.4-10.2); Carbon Dioxide 39 mmol/L (22-30); Creatinine 1 1.05 mg/dL (0.66-1.25); EST GLOMERULAR FILTRATION RATE > 60.0 ML/MIN; Glucose 110 mg/dL (74-106); Potassium 4.3 mmol/L (3.5-5.1); SGOT/AST 30 U/L (17-59); SGPT/ALT 27 U/L (0-50); SODIUM 138 mmol/L (137-145); Total Protein 5.9 g/dL (6.3-8.2)
[2020-06-11 06:19] LABS: Slide Review 1 YES
[2020-06-11] MEDS: Cardizem CD 180 MG PO SCH ×2 (08:59→21:29)
[2020-06-11] MEDS: ENOXAPARIN SODIUM SQ SCH ×2 (08:59→21:30)
[2020-06-11] MEDS: Catapres 0.1 MG PO SCH ×2 (08:59→21:29)
[2020-06-11] MEDS: ECOTRIN 81 MG PO SCH (08:59)
[2020-06-11] MEDS: LASIX 20 MG PO SCH (09:00)
[2020-06-11] MEDS: Lanoxin 0.125MG TABLET PO SCH (09:00)
[2020-06-11] MEDS: Ms Contin 15 MG PO SCH ×2 (09:00→21:30)
[2020-06-11] MEDS: hydroDIURIL 25 MG PO SCH (09:00)
[2020-06-11] MEDS: Protonix 40MG Tablet PO SCH ×2 (09:01→21:29)
[2020-06-11] MEDS: ZOLOFT 50 MG TABLET PO SCH (09:01)
[2020-06-11] MEDS: Zestril 20 MG PO SCH (09:01)
[2020-06-11] MEDS: Pepcid 20 MG PO SCH (09:01)
[2020-06-11] MEDS: SECTRAL 200 MG PO SCH ×3 (09:01→21:30)
--- NOTE | 2020-06-11 12:05 | ECHO ---
Transthoracic echocardiographic examination and color Doppler was done on 06/10/2020. INDICATION: The patient has diagnosis of COVID-19 infection, altered mental status, elevation of left ventricular function. IMPRESSION: 1) NO DEFINITE REGIONAL WALL MOTION ABNORMALITY. ESTIMATED GLOBAL LEFT VENTRICULAR EJECTION FRACTION BETWEEN 60 AND 65%. 2) TRACE AORTIC REGURGITATION. 3) MILD TRICUSPID REGURGITATION. RIGHT VENTRICULAR SYSTOLIC PRESSURE OF 37 MM OF MERCURY. 4) PROMINENT BASAL SEPTUM. 5) CONCENTRIC LEFT VENTRICULAR HYPERTROPHY. 6) MILDLY DILATED AORTIC ROOT. 7) LEFT VENTRICULAR DIASTOLIC DYSFUNCTION. The left ventricle is visualized and demonstrated adequate motion of all the segments. Estimated global left ventricular ejection fraction between 60 and 65%. The basal septum is prominent but there is no significant gradient across the left ventricular outflow tract. The mitral valve is seen and this opens adequately. No significant mitral regurgitation is seen. Tissue Doppler study of the lateral mitral annulus suggestive of left ventricular diastolic dysfunction. The aortic valve is thickened but opens adequately. There is trace aortic regurgitation. The visualized aortic root is mildly dilated and mildly calcified. The right side chambers are normal with normal right ventricular contractility. There is mild tricuspid regurgitation with a right ventricular systolic pressure of 37 mm of Mercury. The inferior vena cava appears to be normal.
[2020-06-11] MEDS: REMDESIVIR 100 MG in Sodium Chloride 0.9% 100 ML IVPB 100 ML IV SCH (16:45)
[2020-06-11] MEDS ORDERED: Coumadin 5 MG PO SCH (18:00)
[2020-06-12 05:19] LABS: Hematocrit 38.9 % (42-50); Hemoglobin 11.4 gm/dl (12.5-18.0); Mean Cell Volume 82.8 fl (78-100); Mean Corpuscular Hemoglobin 24.3 pg (26-32); Mean Corpuscular Hgb Concent. 29.3 g/dl (32-36); Mean Platelet Volume 9.1 fl (7.5-11.0); Platelet Count 349 K/mm3 (150-450); Red Cell Distribution Width 17.2 % (11.5-14.0); White Blood Count 10.9 K/mm3 (4.0-10.5)
[2020-06-12 05:32] LABS: ALBUMIN 3.7 g/dL (3.5-5.0); ALKALINE PHOSPHATASE 55 U/L (38-126); ANION GAP 7.4 MEQ/L (5-15); BLOOD UREA NITROGEN 26 mg/dL (9-20); CHLORIDE 98 mmol/L (98-107); Carbon Dioxide 35 mmol/L (22-30); Creatinine 1 0.92 mg/dL (0.66-1.25); EST GLOMERULAR FILTRATION RATE > 60.0 ML/MIN; Glucose 112 mg/dL (74-106); Potassium 3.7 mmol/L (3.5-5.1); SGOT/AST 31 U/L (17-59); SGPT/ALT 31 U/L (0-50); SODIUM 137 mmol/L (137-145); Total Protein 6.5 g/dL (6.3-8.2)
[2020-06-12 05:51] LABS: INR 1.44 (0.8-3.0); PROTIME 16.3 SECONDS (8.83-12.87)
[2020-06-12 08:48] VITALS: BP 164/77; O2SAT 93
[2020-06-12] MEDS: Pepcid 20 MG PO SCH (10:38)
[2020-06-12] MEDS: Zestril 20 MG PO SCH (10:38)
[2020-06-12] MEDS: Cardizem CD 180 MG PO SCH (10:38)
[2020-06-12] MEDS: Lanoxin 0.125MG TABLET PO SCH (10:38)
[2020-06-12] MEDS: Protonix 40MG Tablet PO SCH (10:39)
[2020-06-12] MEDS: ECOTRIN 81 MG PO SCH (10:39)
[2020-06-12] MEDS: hydroDIURIL 25 MG PO SCH (10:39)
[2020-06-12] MEDS: ZOLOFT 50 MG TABLET PO SCH (10:39)
[2020-06-12] MEDS: SECTRAL 200 MG PO SCH (10:39)
[2020-06-12] MEDS: Catapres 0.1 MG PO SCH (10:39)
[2020-06-12] MEDS: Ms Contin 15 MG PO SCH (10:39)
[2020-06-12] MEDS: LASIX 20 MG PO SCH (10:39)
[2020-06-12] MEDS: ENOXAPARIN SODIUM SQ SCH (10:40)
[2020-06-12 10:41] VITALS: PULSE 79
--- NOTE | 2020-06-12 12:03 | DS ---
ADMISSION DIAGNOSES: 1) COVID pneumonia. 2) Congestive heart failure. 3) Acute atrial fibrillation with rapid rate. DISCHARGE DIAGNOSES: 1) ACUTE HEART FAILURE. 2) ATRIAL FIBRILLATION WITH RAPID RATE. 3) DELIRIUM DUE TO HEART FAILURE AND SITUATIONAL THINGS. HISTORY: The patient came in with a low grade fever, was hypoxic. He was a little bit confused. He was in rapid atrial fibrillation with bilateral effusions. The COVID test was positive and this was repeated three days later with a test we sent off and it came back negative. He has not been out of the house in the last month nor has his . They have the groceries dropped by. They have not traveled so it seemed unlikely to have COVID and indeed it appears he did not have it. The atrial fibrillation was up to 140 to 150. He finally took some IV Lanoxin as well as his normal Cardizem and beta randall to get the rate down to 70's and 80's. After that happened he went to sleep, became less confused and less shortness of breath. Last chest x-ray showed minimal infiltrates and his heart rate shows atrial fibrillation with rate of about 80 or less. His echo is good and it showed no cardiac enlargement, really normal for his age. He was treated initially with Remdesivir, Solu-Cortef, oxygen and his home medicines. As he got worse we added digoxin since he was unclothing himself and off the wall. We followed up with Seroquel and finally Haldol which seemed to stop the agitation. He was on narcotics for pain and I actually gave him 5 of morphine which once again seemed to put him to sleep and help him relax. We did that once and after that we continued his morphine 15 mg in the morning and 5 at night. He sees a pain specialist for that. This morning his chest is clear. His heart sounds are slightly irregular but soft. He is in good spirits. He is alert and orientated. DISPOSITION: The patient is to be sent home on Xarelto 20 mg a day for 30 days, Lanoxin 0.25 once a day for rate control. He is already on a beta randall, SOLIS inhibitor and Lasix. Discharged to follow up with Dr. Leavitt in a week. He may be a candidate in a month or two to cardiovert if he does not convert on his own. He is on Xarelto 20 but if that is unaffordable will start him with Coumadin 5, get Coumadin Clinic to follow him that might be a problem since [place] of [place] and getting transportation for lab work I guess. His other home medicines are Sectral 200 mg q.d., aspirin 81 mg, clonidine 0.1 b.i.d., diltiazem 180 b.i.d., hydrochlorothiazide 50 q.d., hydrocodone 7.5 every four hours PRN, Lisinopril 40 q.d., MS Contin 15 bedtime, MS Contin 30 in the morning, Protonix 40 q.d., Zoloft 100 q.d. The patient is to return for shortness of breath, confusion, chest pain. Again the repeat COV-BOUCHRA sent off to [place] was negative. The nucleic acid amplification test should be more accurate than the initial quick test. I note his D-dimer was elevated at 1,538. His BNP was markedly elevated when he came in and his chest x-ray has improved quite a bit. His white count was 10.9 when he came in. Hemoglobin 11.4. PROGNOSIS: Fair.
== END 2020-06-12 12:00 | disposition home or self-care (01) | DRG 291 ==
LOC: ED 13:54 → MED SURG 19:25
PROVIDERS: ADMIT Family Medicine; ATTEND Family Medicine
DX: I50.9 Heart failure, unspecified (principal); U07.1 COVID-19; J12.89 Other viral pneumonia; I48.91 Unspecified atrial fibrillation; R41.0 Disorientation, unspecified; R45.1 Restlessness and agitation; R25.1 Tremor, unspecified; Z79.01 Long term (current) use of anticoagulants; M19.90 Unspecified osteoarthritis, unspecified site; I51.7 Cardiomegaly; Z79.899 Other long term (current) drug therapy
CPT/HCPCS: 36415; 36600; 71045; 71260; 80053; 82375; 82803; 83735; 83880; 84484; 85025; 85027; 85379; 85610; 93005; 93041; 93306; 94003; 94640; 94762; 96374; 96375; 96376; 99291; U0003; 36000; 94002; 94760; 99285; J1100; J1160; J1200; J1630; J1650; J1940; J2060; J2270; J2405; A9270-GY

== ENCOUNTER 2020-07-10 11:49 | Observation (INO) | payer MEDICARE ==
--- NOTE | 2020-07-10 11:51 | ERPHSYRPT ---
- History of Present Illness Time Seen by Provider: 07/10/20 11:50 Source: patient, EMS Exam Limitations: clinical condition Physician History: Is an 84-year-old male patient of Dr. Maldonado who presents with worsening shortness of breath over the last several days. Patient was diagnosed with COVID-19 in May 2020. Patient has a history of hypertension and atrial fib rillation on clonidine diltiazem lisinopril digoxin. Patient states that he does normally increase his shortness of air when he uses his narcotics for generalized arthritis. Patient's pain specialist has tried to decrease the patient off of narcotics. 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 Patient denies chest pain. Patient denies abdominal pain. Timing/Duration: today Activities at Onset: none Severity of Dyspnea-Max: moderate Severity of Dyspnea-Current: moderate Possible Cause: frequent episodes Modifying Factors: Improves With: activity (Worsens), oxygen (Improves), rest (Improves) Associated Symptoms: anxiety, ankle swelling, No chest pain/discomfort Allergies/Adverse Reactions: No Known Allergies Allergy (Verified 06/08/20 14:16) Home Medications: Acebutolol 200 mg [Sectral 200 MG] 200 mg PO TID 06/08/20 [History] Aspirin 81 gm Chew [Baby Aspirin 81 mg Chew] 81 mg PO DAILY 06/08/20 [History] Diltiazem HCl [Diltiazem 24Hr Cd] 180 mg PO BID 06/08/20 [History] Hydrochlorothiazide 25 mg PO DAILY 06/08/20 [History] Hydrocodone/Acetaminophen [Hydrocodone-Acetamin 7.5-325] 1 tab PO Q4H PRN PRN 06/08/20 [History] Morphine Sulfate Cr 15 mg [Ms Contin 15 MG] 15 mg PO HS 06/08/20 [History] Morphine Sulfate Cr 30 mg [Ms Contin 30 mg] 30 mg PO DAILY 06/08/20 [History] PANTOPRAZOLE 40 mg Tablet [Protonix 40MG Tablet] 40 mg PO BID 06/08/20 [History] Sertraline HCl 100 mg PO DAILY 06/08/20 [History] cloNIDine HCL [Clonidine HCl] 0.1 mg PO BID 06/08/20 [History] lisinopriL [Lisinopril] 40 mg PO DAILY 06/08/20 [History] Hx Tetanus, Diphtheria Vaccination/Date Given: Yes Hx Influenza Vaccination/Date Given: Yes Hx Pneumococcal Vaccination/Date Given: Yes Travel Risk - International Travel Have you traveled outside of the country in past 3 weeks: No - Coronavirus Screening Symptoms: Shortness of Breath Close contact with a COVID-19 positive Pt in past 14-21 Days: No - Review of Systems Constitutional: Weakness Eyes: No Symptoms Ears, Nose, & Throat: No Symptoms Respiratory: Dyspnea (Neck), Dyspnea on Exertion (GARCIA) Cardiac: No Symptoms Abdominal/Gastrointestinal: No Symptoms Genitourinary Symptoms: No Symptoms Musculoskeletal: No Symptoms Skin: No Symptoms Neurological: No Symptoms Psychological: No Symptoms Endocrine: No Symptoms Hematologic/Lymphatic: No Symptoms Immunological/Allergic: No Symptoms All Other Systems: Reviewed and Negative - Past Medical History Pertinent Past Medical History: Yes Cardiac History: Hypertension Musculoskeletal History: Arthritis GI Medical History: Other Psycho-Social History: Depression Other Medical History: bladder cancer 2011. - Past Surgical History Past Surgical History: Yes Neuro Surgical History: No Pertinent History Cardiac: No Pertinent History Respiratory: No Pertinent History Gastrointestinal: Other Genitourinary: No Pertinent History Musculoskeletal: Orthopedic Surgery Male Surgical History: No Pertinent History Other Surgical History: bilat hip replacement, bilat shoulder replacement. 1st layer bladder removed - Social History Smoking Status: Never smoker Exposure to second hand smoke: No Drug Use: none Patient Lives Alone: No - Nursing Vital Signs Nursing Vital Signs: Initial Vital Signs Temperature 98.3 F 07/10/20 12:00 Pulse Rate 63 07/10/20 12:00 Respiratory Rate 20 07/10/20 12:00 Blood Pressure 204/106 07/10/20 12:00 O2 Sat by Pulse Oximetry 96 07/10/20 12:00 Pain Scale Pain Intensity 0 - Physical Exam General Appearance: moderate distress, alert, anxiety Eye Exam: PERRL/EOMI Ears, Nose, Throat Exam: hearing grossly normal Neck Exam: normal inspection, non-tender, supple, full range of motion Respiratory Exam: respiratory distress, airway intact, crackles/rales (Bibasilar), No chest tenderness Cardiovascular/Chest Exam: normal heart sounds, regular rate/rhythm, normal peripheral pulses Abdominal/Gastrointestinal Exam: soft, normal bowel sounds, No tenderness Rectal Exam: not done Extremity Exam: non-tender, normal range of motion, normal inspection, normal capillary refill, no calf tenderness, pedal edema (Bilateral feet and ankles) Neurologic Exam: alert, oriented x 3, cooperative, gas meter repairer II-XII nml as tested Skin Exam: normal color, warm, dry Lymphatic Exam: No adenopathy SpO2 Interpretation: normal O2 Delivery: Nasal Cannula - Course Nursing assessment & vital signs reviewed: Yes EKG Interpreted by Me: RATE (65), A-fib, Other (PVCs on this EKG. When compared to EKG dated 06/08/2020 this is a new finding. Otherwise there is no signific ant change.) Ordered Tests: Active Orders 24 hr Category Date Time Status Clinical Genetics Laboratory Chief STAT Care 07/10/20 12:04 Active EKG-ER Only STAT Care 07/10/20 12:03 Active IV Insertion STAT Care 07/10/20 12:03 Active Pulse Oximetry (ED) STAT Care 07/10/20 12:03 Active CHEST 1 VIEW (PORTABLE) Stat Exams 07/10/20 12:03 Completed CBC W DIFF Stat Lab 07/10/20 12:12 Completed CMP Stat Lab 07/10/20 12:12 Completed Lactic Acid Stat Lab 07/10/20 12:02 Completed MAGNESIUM Stat Lab 07/10/20 12:12 Completed NT PRO BNP Stat Lab 07/10/20 12:12 Completed PROTIME WITH INR Stat Lab 07/10/20 12:03 Completed TROPONIN Q3H Lab 07/10/20 12:15 Completed TROPONIN Q3H Lab 07/10/20 15:11 Completed TROPONIN Q3H Lab 07/10/20 18:15 Ordered TROPONIN Q3H Lab 07/10/20 21:15 Ordered TROPONIN Q3H Lab 07/11/20 00:15 Ordered Transfer Order Routine Transfer 07/10/20 Ordered Medication Summary Discontinued Medications Generic Name Dose Route Start Last Admin Trade Name Freq PRN Reason Stop Dose Admin Enalaprilat 1.25 mg 07/10/20 16:09 Vasotec I.V. 2.5 Mg IV 07/10/20 16:10 STAT ONE Furosemide 40 mg 07/10/20 13:08 07/10/20 13:30 Lasix 40 Mg/4 Ml IV 07/10/20 13:09 40 mg STAT ONE Administration Furosemide Confirm 07/10/20 13:24 Lasix 40 Mg/4 Ml Administered 07/10/20 13:25 Dose 40 mg .ROUTE .STK-MED ONE Lab/Rad Data: Laboratory Result Diagrams 07/10/20 12:12 07/10/20 12:12 Laboratory Results 07/10/20 07/10/20 07/10/20 Range/Units 15:11 12:15 12:12 WBC (4.0-10.5) K/mm3 RBC (4.1-5.6) M/mm3 Hgb (12.5-18.0) gm/dl Hct (42-50) % MCV (78-100) fl MCH (26-32) pg MCHC (32-36) g/dl RDW (11.5-14.0) % Plt Count (150-450) K/mm3 MPV (7.5-11.0) fl Gran % (36.0-66.0) % Eos # (Auto) (0-0.5) Absolute Lymphs (auto) (1.0-4.6) Absolute Monos (auto) (0.0-1.3) Lymphocytes % (24.0-44.0) % Monocytes % (0.0-12.0) % Eosinophils % (0.00-5.0) % Basophils % (0.0-0.4) % Absolute Granulocytes (1.4-6.9) Basophils # (0-0.4) PT (8.83-12.87) SECONDS INR (0.8-3.0) Sodium (137-145) mmol/L Potassium (3.5-5.1) mmol/L Chloride (98-107) mmol/L Carbon Dioxide (22-30) mmol/L Anion Gap (5-15) MEQ/L BUN (9-20) mg/dL Creatinine (0.66-1.25) mg/dL Estimated GFR ML/MIN Glucose (74-106) mg/dL Lactic Acid (0.4-2.0) Calcium (8.4-10.2) mg/dL Magnesium (1.6-2.3) mg/dL Total Bilirubin (0.2-1.3) mg/dL AST (17-59) U/L ALT (0-50) U/L Alkaline Phosphatase (38-126) U/L Troponin I 0.023 0.021 (0.000-0.034) ng/mL NT-Pro-B Natriuret Pep (0-1800) pg/mL Serum Total Protein (6.3-8.2) g/dL Albumin (3.5-5.0) g/dL Digoxin 1.5 (0.8-1.9) ng/mL Slides for Path Review 07/10/20 07/10/20 07/10/20 Range/Units 12:12 12:12 12:03 WBC 11.3 H (4.0-10.5) K/mm3 RBC 4.38 (4.1-5.6) M/mm3 Hgb 10.7 L (12.5-18.0) gm/dl Hct 37.7 L (42-50) % MCV 86.1 (78-100) fl MCH 24.4 L (26-32) pg MCHC 28.4 L (32-36) g/dl RDW 17.5 H (11.5-14.0) % Plt Count 384 (150-450) K/mm3 MPV 9.3 (7.5-11.0) fl Gran % 70.6 H (36.0-66.0) % Eos # (Auto) 0.25 (0-0.5) Absolute Lymphs (auto) 1.35 (1.0-4.6) Absolute Monos (auto) 1.63 H (0.0-1.3) Lymphocytes % 12.0 L (24.0-44.0) % Monocytes % 14.5 H (0.0-12.0) % Eosinophils % 2.2 (0.00-5.0) % Basophils % 0.7 (0.0-0.4) % Absolute Granulocytes 7.96 H (1.4-6.9) Basophils # 0.08 (0-0.4) PT 30.4 H (8.83-12.87) SECONDS INR 2.66 (0.8-3.0) Sodium 144 (137-145) mmol/L Potassium 4.5 (3.5-5.1) mmol/L Chloride 101 (98-107) mmol/L Carbon Dioxide 37 H (22-30) mmol/L Anion Gap 10.5 (5-15) MEQ/L BUN 22 H (9-20) mg/dL Creatinine 0.91 (0.66-1.25) mg/dL Estimated GFR > 60.0 ML/MIN Glucose 132 H (74-106) mg/dL Lactic Acid (0.4-2.0) Calcium 9.2 (8.4-10.2) mg/dL Magnesium 2.1 (1.6-2.3) mg/dL Total Bilirubin 1.10 (0.2-1.3) mg/dL AST 25 (17-59) U/L ALT 33 (0-50) U/L Alkaline Phosphatase 66 (38-126) U/L Troponin I (0.000-0.034) ng/mL NT-Pro-B Natriuret Pep 4930 H (0-1800) pg/mL Serum Total Protein 7.1 (6.3-8.2) g/dL Albumin 4.0 (3.5-5.0) g/dL Digoxin (0.8-1.9) ng/mL Slides for Path Review YES 07/10/20 Range/Units 12:02 WBC (4.0-10.5) K/mm3 RBC (4.1-5.6) M/mm3 Hgb (12.5-18.0) gm/dl Hct (42-50) % MCV (78-100) fl MCH (26-32) pg MCHC (32-36) g/dl RDW (11.5-14.0) % Plt Count (150-450) K/mm3 MPV (7.5-11.0) fl Gran % (36.0-66.0) % Eos # (Auto) (0-0.5) Absolute Lymphs (auto) (1.0-4.6) Absolute Monos (auto) (0.0-1.3) Lymphocytes % (24.0-44.0) % Monocytes % (0.0-12.0) % Eosinophils % (0.00-5.0) % Basophils % (0.0-0.4) % Absolute Granulocytes (1.4-6.9) Basophils # (0-0.4) PT (8.83-12.87) SECONDS INR (0.8-3.0) Sodium (137-145) mmol/L Potassium (3.5-5.1) mmol/L Chloride (98-107) mmol/L Carbon Dioxide (22-30) mmol/L Anion Gap (5-15) MEQ/L BUN (9-20) mg/dL Creatinine (0.66-1.25) mg/dL Estimated GFR ML/MIN Glucose (74-106) mg/dL Lactic Acid 1.8 (0.4-2.0) Calcium (8.4-10.2) mg/dL Magnesium (1.6-2.3) mg/dL Total Bilirubin (0.2-1.3) mg/dL AST (17-59) U/L ALT (0-50) U/L Alkaline Phosphatase (38-126) U/L Troponin I (0.000-0.034) ng/mL NT-Pro-B Natriuret Pep (0-1800) pg/mL Serum Total Protein (6.3-8.2) g/dL Albumin (3.5-5.0) g/dL Digoxin (0.8-1.9) ng/mL Slides for Path Review - Progress Progress: improved, re-examined Air Movement: fair Progress Note: 07/10/20 15:20 Chest x-ray reveals increasing cardiomegaly with increase in vascular congestion compared to prior chest x-ray. There are moderate bibasilar pleural effusions present. 07/10/20 16:14 Medical decision making: This patient has worsening congestive heart failure as well as hypertension. Patient, clinically, is having more difficulty breathing. I spoke with Dr. Maldonado, who is the patient's primary care physician. I reviewed the patient history, condition, laboratory work-up, chest x-ray findings and EKG results. He agrees to accept the patient to the hospital. He will be on a monitored bed. Patient will be evaluated by respiratory therapy daily as well as as needed. Patient will be diuresed. Blood Culture(s) Obtained: Yes Antibiotics given: No Discussed with : Sheela Counseled pt/family regarding: lab results, diagnosis, need for follow-up, rad results - Departure Departure Disposition: In-patient Admission Clinical Impression: Congestive heart failure, Hypertension Condition: Stable Critical Care Time: Yes Critical Care Time(excluding separately billable procedures): Critical 30-74 mins Referrals: MANJIT MALDONADO MD [Primary Care Provider] - Instructions: Heart Failure
[2020-07-10 12:16] LABS: Absolute Neutrophil Ct (ANC) 7.96 (1.4-6.9); BASOPHIL % 0.7 % (0.0-0.4); Basophil (Absolute #) 0.08 (0-0.4); Eosinophil % 2.2 % (0.00-5.0); Eosinophil (Absolute #) 0.25 (0-0.5); Hematocrit 37.7 % (42-50); Hemoglobin 10.7 gm/dl (12.5-18.0); Lymphocyte (Absolute #) 1.35 (1.0-4.6); Mean Cell Volume 86.1 fl (78-100); Mean Corpuscular Hemoglobin 24.4 pg (26-32); Mean Corpuscular Hgb Concent. 28.4 g/dl (32-36); Mean Platelet Volume 9.3 fl (7.5-11.0); Monocyte (Absolute #) 1.63 (0.0-1.3); Monocytes % 14.5 % (0.0-12.0); Neutrophil % 70.6 % (36.0-66.0); Platelet Count 384 K/mm3 (150-450); Red Blood Count 4.38 M/mm3 (4.1-5.6); Red Cell Distribution Width 17.5 % (11.5-14.0); White Blood Count 11.3 K/mm3 (4.0-10.5)
[2020-07-10 12:49] LABS: BLOOD UREA NITROGEN 22 mg/dL (9-20)
[2020-07-10 12:50] LABS: ALKALINE PHOSPHATASE 66 U/L (38-126); ANION GAP 10.5 MEQ/L (5-15); CHLORIDE 101 mmol/L (98-107); Calcium 9.2 mg/dL (8.4-10.2); Carbon Dioxide 37 mmol/L (22-30); Creatinine 1 0.91 mg/dL (0.66-1.25); EST GLOMERULAR FILTRATION RATE > 60.0 ML/MIN; Glucose 132 mg/dL (74-106); MAGNESIUM 2.1 mg/dL (1.6-2.3); NT PRO BNP 4930 pg/mL (0-1800); Potassium 4.5 mmol/L (3.5-5.1); SGOT/AST 25 U/L (17-59); SGPT/ALT 33 U/L (0-50); SODIUM 144 mmol/L (137-145); Total Protein 7.1 g/dL (6.3-8.2)
[2020-07-10 12:53] LABS: INR 2.66 (0.8-3.0); PROTIME 30.4 SECONDS (8.83-12.87)
--- NOTE | 2020-07-10 13:05 | XRAY ---
Indication: Short of breath. COPD. Comparison: June 10, 2020. Portable chest demonstrates worsening cardiomegaly, vascular congestion, and moderate bibasilar effusions favoring cardiac decompensation versus fluid overload. Superimposed pneumonia not completely excluded.
[2020-07-10] MEDS ORDERED: Lasix 40 MG/4 ML IV ONE (13:08)
[2020-07-10] MEDS ORDERED: Lasix 40 MG/4 ML ONE (13:24)
[2020-07-10 13:44] LABS: Slide Review 1 YES
[2020-07-10] MEDS ORDERED: VASOTEC I.V. 2.5 MG IV ONE ×3 (16:09→22:49)
[2020-07-10] MEDS ORDERED: VASOTEC I.V. 2.5 MG IV SCH (18:22)
[2020-07-10] MEDS ORDERED: Zofran 4 MG/2 ML VIAL IV PRN (18:22)
[2020-07-10] MEDS ORDERED: TYLENOL 325 MG PO PRN (18:22)
[2020-07-10] MEDS ORDERED: MORPHINE SULFATE 2 MG INJ IV PRN (18:22)
[2020-07-10] MEDS ORDERED: Lasix 40 MG/4 ML IV SCH (18:22)
[2020-07-10] MEDS ORDERED: Cardizem CD 120 MG PO SCH (23:23)
[2020-07-10] MEDS ORDERED: NORCO 7.5/325 MG TAB PO PRN (23:23)
[2020-07-10] MEDS ORDERED: Ms Contin 15 MG PO SCH (23:28)
[2020-07-10] MEDS: Protonix 40MG Tablet PO SCH (23:47)
[2020-07-10] MEDS: SECTRAL 200 MG PO SCH (23:47)
[2020-07-10] MEDS: Cardizem CD 180 MG PO SCH (23:48)
[2020-07-11] MEDS ORDERED: Haldol 5 MG IM PRN (01:39)
[2020-07-11] MEDS ORDERED: VASOTEC I.V. 2.5 MG IV PRN (01:41)
[2020-07-11 06:41] LABS: BASOPHIL % 0.8 % (0.0-0.4); Basophil (Absolute #) 0.07 (0-0.4); Eosinophil % 2.3 % (0.00-5.0); Eosinophil (Absolute #) 0.21 (0-0.5); Hemoglobin 9.5 gm/dl (12.5-18.0); Lymphocyte (Absolute #) 1.66 (1.0-4.6); Lymphocytes % 17.9 % (24.0-44.0); Mean Cell Volume 84.6 fl (78-100); Mean Corpuscular Hemoglobin 24.4 pg (26-32); Mean Corpuscular Hgb Concent. 28.8 g/dl (32-36); Mean Platelet Volume 9.5 fl (7.5-11.0); Monocyte (Absolute #) 1.83 (0.0-1.3); Monocytes % 19.7 % (0.0-12.0); Neutrophil % 59.3 % (36.0-66.0); Platelet Count 324 K/mm3 (150-450); Red Cell Distribution Width 17.3 % (11.5-14.0); White Blood Count 9.3 K/mm3 (4.0-10.5)
[2020-07-11 06:58] LABS: ALBUMIN 3.4 g/dL (3.5-5.0); ALKALINE PHOSPHATASE 61 U/L (38-126); ANION GAP 7.3 MEQ/L (5-15); BLOOD UREA NITROGEN 21 mg/dL (9-20); CHLORIDE 98 mmol/L (98-107); Calcium 8.5 mg/dL (8.4-10.2); Carbon Dioxide 37 mmol/L (22-30); Creatinine 1 0.81 mg/dL (0.66-1.25); EST GLOMERULAR FILTRATION RATE > 60.0 ML/MIN; Glucose 102 mg/dL (74-106); NT PRO BNP 6590 pg/mL (0-1800); Potassium 3.3 mmol/L (3.5-5.1); SGOT/AST 32 U/L (17-59); SGPT/ALT 25 U/L (0-50); SODIUM 139 mmol/L (137-145); Total Protein 6.2 g/dL (6.3-8.2)
[2020-07-11 07:13] LABS: Slide Review 1 YES
[2020-07-11] MEDS: Protonix 40MG Tablet PO SCH (09:41)
[2020-07-11] MEDS: Cardizem CD 180 MG PO SCH (09:41)
[2020-07-11] MEDS: SECTRAL 200 MG PO SCH ×2 (09:43→16:14)
[2020-07-11] MEDS ORDERED: Lasix 40 MG/4 ML IV SCH (10:00)
[2020-07-11] MEDS ORDERED: Ms Contin 15 MG PO SCH (11:00)
[2020-07-11] MEDS ORDERED: Klor Con 10 MEQ PO SCH (11:00)
[2020-07-11] MEDS ORDERED: Zestril 20 MG PO SCH (11:00)
[2020-07-11] MEDS ORDERED: Lanoxin 0.125MG TABLET PO SCH (11:00)
[2020-07-11] MEDS ORDERED: hydroDIURIL 25 MG PO SCH (11:00)
[2020-07-11] MEDS ORDERED: BABY ASPIRIN 81 MG CHEW PO SCH (11:00)
[2020-07-11] MEDS ORDERED: ZOLOFT 50 MG TABLET PO SCH (11:00)
[2020-07-11 13:00] VITALS: BP 135/62; PULSE 71; O2SAT 96
[2020-07-11] MEDS ORDERED: XARELTO 10 MG TABLET PO SCH (18:00)
[2020-07-12] MEDS ORDERED: Lasix 40 MG PO SCH (10:00)
[2020-07-12] MEDS ORDERED: DIGOXIN 0.25 MG PO SCH (10:00)
[2020-07-12] MEDS ORDERED: NON-FORMULARY ITEM (Lisinopril [Lisinopril] 40 MG) PO SCH (10:00)
[2020-07-12] MEDS ORDERED: HYDROCHLOROTHIAZIDE 25 MG PO SCH (10:00)
[2020-07-12] MEDS ORDERED: MORPHINE SULFATE 30 MG PO SCH (10:00)
[2020-07-12] MEDS ORDERED: NON-FORMULARY ITEM (Rivaroxaban [Xarelto] 20 MG) PO SCH (10:00)
== END 2020-07-11 15:48 | disposition home or self-care (01) ==
LOC: ED 11:49 → UNDOADMIN 15:58 → MED SURG 15:58 → INTOOBSV 17:58 → MED SURG 17:58
PROVIDERS: ADMIT Family Medicine; ATTEND Family Medicine
DX: U07.1 COVID-19 (principal); R41.0 Disorientation, unspecified; I48.20 Chronic atrial fibrillation, unspecified; I50.9 Heart failure, unspecified; I10 Essential (primary) hypertension; I51.7 Cardiomegaly; Z79.01 Long term (current) use of anticoagulants; M19.90 Unspecified osteoarthritis, unspecified site; Z79.899 Other long term (current) drug therapy
CPT/HCPCS: 36000; 36415; 71045; 80053; 80162; 83605; 83735; 83880; 84484; 85025; 85610; 93005; 93041; 93268; 94760; 94762; 96374; 96375; 99285; 99291; G0378; J1940; A9270-GY

== ENCOUNTER 2020-08-06 11:32 | Emergency (ER) | payer MEDICARE ==
--- NOTE | 2020-08-06 11:41 | ERPHSYRPT ---
- History of Present Illness Time Seen by Provider: 08/06/20 11:40 Source: patient, family Exam Limitations: clinical condition Physician History: This is an 85-year-old white male who has a history of hypertension, gastroesophageal reflux disease,? Atrial fibrillation on diltiazem and Xarelto as well as acebutolol and has chronic shortness of breath. He was placed on 2 L nasal cannula oxygen at home approximately the end of May 2020. 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 Duncan. Patient was having right groin pain and said he noticed the right testicle being swollen. He came to the emergency room because of a swollen, tender right testicle. However, when he was hooked up to the monitors he was found to have a heart rate in the mid 30s to mid 40 range. He seemed to be going in and out of bradycardia and atrial fibrillation on the monitor. Patient denies chest pain. He has no abdominal pain he has chronic shortness of breath but that is not different than usual he says. He has recently been diagnosed with bladder cancer and sometimes has difficulty urinating. Timing/Duration: today Activites at Onset: none Quality: aching (Right groin) Onset Location: right testicle Severity of Pain-Max: mild Severity of Pain-Current: mild Modifying Factors: Improves With: nothing Associated Symptoms: denies symptoms Sexual intercourse history: non-contributory Allergies/Adverse Reactions: No Known Allergies Allergy (Verified 08/06/20 12:13) Home Medications: Acebutolol 200 mg [Sectral 200 MG] 200 mg PO TID 06/08/20 [History] Aspirin 81 gm Chew [Baby Aspirin 81 mg Chew] 81 mg PO DAILY 06/08/20 [History] Diltiazem HCl [Diltiazem 24Hr Cd] 180 mg PO BID 06/08/20 [History] Hydrocodone/Acetaminophen [Hydrocodone-Acetamin 7.5-325] 1 tab PO Q4H PRN PRN 06/08/20 [History] Morphine Sulfate Cr 15 mg [Ms Contin 15 MG] 15 mg PO HS 06/08/20 [History] Morphine Sulfate Cr 30 mg [Ms Contin 30 mg] 30 mg PO DAILY 06/08/20 [History] PANTOPRAZOLE 40 mg Tablet [Protonix 40MG Tablet] 40 mg PO BID 06/08/20 [History] Sertraline HCl 100 mg PO DAILY 06/08/20 [History] cloNIDine HCL [Clonidine HCl] 0.1 mg PO BID 06/08/20 [History] lisinopriL [Lisinopril] 40 mg PO DAILY 06/08/20 [History] Hx Tetanus, Diphtheria Vaccination/Date Given: Yes Hx Influenza Vaccination/Date Given: Yes Hx Pneumococcal Vaccination/Date Given: Yes Travel Risk - International Travel Have you traveled outside of the country in past 3 weeks: No - Coronavirus Screening Are you exhibiting any of the following symptoms?: No Close contact with a COVID-19 positive Pt in past 14-21 Days: No - Past Medical History Pertinent Past Medical History: Yes Cardiac History: Arrhythmia, Hypertension Musculoskeletal History: Arthritis GI Medical History: Other Psycho-Social History: Depression Other Medical History: bladder cancer 2011. - Past Surgical History Past Surgical History: Yes Neuro Surgical History: No Pertinent History Cardiac: No Pertinent History Respiratory: No Pertinent History Gastrointestinal: Other Genitourinary: No Pertinent History Musculoskeletal: Orthopedic Surgery Male Surgical History: No Pertinent History Other Surgical History: bilat hip replacement, bilat shoulder replacement. 1st layer bladder removed. Pt poor historian - Social History Smoking Status: Never smoker Exposure to second hand smoke: No Drug Use: none Patient Lives Alone: No - Review of Systems Constitutional: Weakness Eyes: No Symptoms Ears, Nose, & Throat: No Symptoms Respiratory: Dyspnea (Chronic) Cardiac: No Symptoms Abdominal/Gastrointestinal: No Symptoms Genitourinary Symptoms: Testicle Pain (Right side) Musculoskeletal: No Symptoms Skin: No Symptoms Neurological: No Symptoms Psychological: No Symptoms Endocrine: No Symptoms Hematologic/Lymphatic: No Symptoms Immunological/Allergic: No Symptoms All Other Systems: Reviewed and Negative - Nursing Vital Signs Nursing Vital Signs: Initial Vital Signs Temperature 97.7 F 08/06/20 12:01 Pulse Rate 38 L 08/06/20 12:01 Respiratory Rate 23 08/06/20 12:01 Blood Pressure 184/78 08/06/20 12:01 O2 Sat by Pulse Oximetry 95 08/06/20 12:01 Pain Scale Pain Intensity 8 - Physical Exam General Appearance: mild distress, alert Eye Exam: PERRL/EOMI, eyes nml inspection Ears, Nose, Throat Exam: normal ENT inspection Neck Exam: normal inspection, non-tender, supple, full range of motion Respiratory Exam: normal breath sounds, lungs clear, airway intact, No chest tenderness, No respiratory distress Cardiovascular Exam: bradycardia, irregular Gastrointestinal/Abdomen Exam: soft, normal bowel sounds, No tenderness, No mass, No guarding Rectal Exam: not done Male Genital Exam: normal genitalia, scrotum tenderness (R), testicular tenderness (R) Back Exam: normal inspection, normal range of motion, No CVA tenderness, No vertebral tenderness Extremity Exam: normal inspection, normal range of motion, pelvis stable Neurologic Exam: alert, oriented x 3, cooperative, producer director II-XII nml as tested, normal mood/affect Skin Exam: normal color, warm, dry Lymphatic Exam: No adenopathy SpO2 Interpretation: normal O2 Delivery: Nasal Cannula (2 L oxygen) - Course Nursing assessment & vital signs reviewed: Yes EKG Interpreted by Me: RATE (44), A-fib, NORMAL ST-T, Other (I do not appreciate any acute ischemic changes on this EKG. He seems to be alternating between sin us bradycardia and low rate atrial fibrillation. He is maintaining his blood pressure. The most recent systolic blood pressure is 180. Compared to EKG dated 07/10/2020, there is persistent atrial fi) Ordered Tests: Active Orders 24 hr Category Date Time Status Weather Strip Installer STAT Care 08/06/20 12:09 Active EKG-ER Only STAT Care 08/06/20 12:07 Active IV Insertion STAT Care 08/06/20 12:07 Active Oxygen-ED Only Nasal Cannula 2 lpm Care 08/06/20 12:07 Active CHEST WITH CONTRAST [CT] Stat Exams 08/06/20 13:18 Completed TESTICLE [US] Stat Exams 08/06/20 12:11 Completed CBC W DIFF Stat Lab 08/06/20 11:35 Completed CMP Stat Lab 08/06/20 11:35 Completed D-DIMER QUANTITATIVE Stat Lab 08/06/20 11:35 Completed Lactic Acid Stat Lab 08/06/20 12:50 Completed MAGNESIUM Stat Lab 08/06/20 11:35 Completed NT PRO BNP Stat Lab 08/06/20 11:35 Completed TROPONIN Q3H Lab 08/06/20 11:35 Completed TROPONIN Q3H Lab 08/06/20 15:15 Ordered TROPONIN Q3H Lab 08/06/20 18:15 Ordered TROPONIN Q3H Lab 08/06/20 21:15 Ordered TROPONIN Q3H Lab 08/07/20 00:15 Ordered UA W/RFX UR CULTURE Stat Lab 08/06/20 12:55 Completed Medication Summary Generic Name Dose Route Start Last Admin Trade Name Addy PRN Reason Stop Dose Admin Sodium Chloride 1,000 mls @ 50 mls/hr 08/06/20 13:30 08/06/20 14:21 Sodium Chloride 0.9% 1000 Ml IV 09/05/20 13:29 50 mls/hr .Q20H FERNANDO Administration Discontinued Medications Generic Name Dose Route Start Last Admin Trade Name Addy PRN Reason Stop Dose Admin Hydrocodone Bitart/Acetaminophen 1 tab 08/06/20 14:05 08/06/20 14:21 [place] 7.5/325 Mg Tab PO 08/06/20 14:06 1 tab STAT ONE Administration Hydrocodone Bitart/Acetaminophen Confirm 08/06/20 14:19 [place] 7.5/325 Mg Tab Administered 08/06/20 14:20 Dose 1 tab .ROUTE .STK-MED ONE Atropine Sulfate 0.5 mg 08/06/20 12:12 Atropine Sulfate 1mg IV 08/06/20 12:13 STAT ONE Furosemide 40 mg 08/06/20 14:40 Lasix 40 Mg/4 Ml IV 08/06/20 14:41 STAT ONE Morphine Sulfate 2 mg 08/06/20 13:56 08/06/20 14:06 Morphine Sulfate 2 Mg Inj IV 08/06/20 13:57 Not Given STAT ONE Ondansetron HCl 4 mg 08/06/20 13:56 Zofran 4 Mg/2 Ml Vial IV 08/06/20 13:57 STAT ONE Lab/Rad Data: Laboratory Result Diagrams 08/06/20 11:35 08/06/20 11:35 Laboratory Results 08/06/20 08/06/20 08/06/20 Range/Units 12:55 12:50 11:35 WBC (4.0-10.5) K/mm3 RBC (4.1-5.6) M/mm3 Hgb (12.5-18.0) gm/dl Hct (42-50) % MCV (78-100) fl MCH (26-32) pg MCHC (32-36) g/dl RDW (11.5-14.0) % Plt Count (150-450) K/mm3 MPV (7.5-11.0) fl Gran % (36.0-66.0) % Eos # (Auto) (0-0.5) Absolute Lymphs (auto) (1.0-4.6) Absolute Monos (auto) (0.0-1.3) Lymphocytes % (24.0-44.0) % Monocytes % (0.0-12.0) % Eosinophils % (0.00-5.0) % Basophils % (0.0-0.4) % Absolute Granulocytes (1.4-6.9) Basophils # (0-0.4) D-Dimer (215-500) ng/mL Sodium (137-145) mmol/L Potassium (3.5-5.1) mmol/L Chloride (98-107) mmol/L Carbon Dioxide (22-30) mmol/L Anion Gap (5-15) MEQ/L BUN (9-20) mg/dL Creatinine (0.66-1.25) mg/dL Estimated GFR ML/MIN Glucose (74-106) mg/dL Lactic Acid 1.7 (0.4-2.0) Calcium (8.4-10.2) mg/dL Magnesium (1.6-2.3) mg/dL Total Bilirubin (0.2-1.3) mg/dL AST (17-59) U/L ALT (0-50) U/L Alkaline Phosphatase (38-126) U/L Troponin I (0.000-0.034) ng/mL NT-Pro-B Natriuret Pep (0-1800) pg/mL Serum Total Protein (6.3-8.2) g/dL Albumin (3.5-5.0) g/dL Urine Color YELLOW (YELLOW) Urine Appearance CLOUDY (CLEAR) Urine pH 5.0 (5-6) Ur Specific [place] 1.012 (1.005-1.025) Urine Protein NEGATIVE (Negative) Urine Ketones NEGATIVE (NEGATIVE) Urine Blood SMALL (0-5) Allen/ul Urine Nitrite NEGATIVE (NEGATIVE) Urine Bilirubin NEGATIVE (NEGATIVE) Urine Urobilinogen 2 (0-1) mg/dL Ur Leukocyte Esterase NEGATIVE (NEGATIVE) Urine WBC (Auto) 3-5 (0-5) /HPF Urine RBC (Auto) 0-2 (0-2) /HPF U Hyaline Cast (Auto) 3-5 (0-2) /LPF U Epithel Cells (Auto) RARE (FEW) /HPF Urine Bacteria (Auto) NONE (NEGATIVE) /HPF Urine Mucus (Auto) SLIGHT (NEGATIVE) /HPF Urine Culture Reflexed NO (NO) Urine Glucose NEGATIVE (NEGATIVE) mg/dL Digoxin 2.4 H* (0.8-1.9) ng/mL Slides for Path Review 08/06/20 08/06/20 08/06/20 Range/Units 11:35 11:35 11:35 WBC (4.0-10.5) K/mm3 RBC (4.1-5.6) M/mm3 Hgb (12.5-18.0) gm/dl Hct (42-50) % MCV (78-100) fl MCH (26-32) pg MCHC (32-36) g/dl RDW (11.5-14.0) % Plt Count (150-450) K/mm3 MPV (7.5-11.0) fl Gran % (36.0-66.0) % Eos # (Auto) (0-0.5) Absolute Lymphs (auto) (1.0-4.6) Absolute Monos (auto) (0.0-1.3) Lymphocytes % (24.0-44.0) % Monocytes % (0.0-12.0) % Eosinophils % (0.00-5.0) % Basophils % (0.0-0.4) % Absolute Granulocytes (1.4-6.9) Basophils # (0-0.4) D-Dimer 3331 H* (215-500) ng/mL Sodium 139 (137-145) mmol/L Potassium 4.4 (3.5-5.1) mmol/L Chloride 98 (98-107) mmol/L Carbon Dioxide 37 H (22-30) mmol/L Anion Gap 8.5 (5-15) MEQ/L BUN 38 H (9-20) mg/dL Creatinine 1.09 (0.66-1.25) mg/dL Estimated GFR > 60.0 ML/MIN Glucose 109 H (74-106) mg/dL Lactic Acid (0.4-2.0) Calcium 8.9 (8.4-10.2) mg/dL Magnesium 2.1 (1.6-2.3) mg/dL Total Bilirubin 1.50 H (0.2-1.3) mg/dL AST 34 (17-59) U/L ALT 29 (0-50) U/L Alkaline Phosphatase 57 (38-126) U/L Troponin I 0.036 H* (0.000-0.034) ng/mL NT-Pro-B Natriuret Pep 7730 H (0-1800) pg/mL Serum Total Protein 6.9 (6.3-8.2) g/dL Albumin 3.7 (3.5-5.0) g/dL Urine Color (YELLOW) Urine Appearance (CLEAR) Urine pH (5-6) Ur Specific [place] (1.005-1.025) Urine Protein (Negative) Urine Ketones (NEGATIVE) Urine Blood (0-5) Allen/ul Urine Nitrite (NEGATIVE) Urine Bilirubin (NEGATIVE) Urine Urobilinogen (0-1) mg/dL Ur Leukocyte Esterase (NEGATIVE) Urine WBC (Auto) (0-5) /HPF Urine RBC (Auto) (0-2) /HPF U Hyaline Cast (Auto) (0-2) /LPF U Epithel Cells (Auto) (FEW) /HPF Urine Bacteria (Auto) (NEGATIVE) /HPF Urine Mucus (Auto) (NEGATIVE) /HPF Urine Culture Reflexed (NO) Urine Glucose (NEGATIVE) mg/dL Digoxin (0.8-1.9) ng/mL Slides for Path Review 08/06/20 Range/Units 11:35 WBC 10.6 H (4.0-10.5) K/mm3 RBC 3.68 L (4.1-5.6) M/mm3 Hgb 8.6 L (12.5-18.0) gm/dl Hct 31.4 L (42-50) % MCV 85.3 (78-100) fl MCH 23.4 L (26-32) pg MCHC 27.4 L (32-36) g/dl RDW 18.6 H (11.5-14.0) % Plt Count 334 (150-450) K/mm3 MPV 9.8 (7.5-11.0) fl Gran % 64.5 (36.0-66.0) % Eos # (Auto) 0.42 (0-0.5) Absolute Lymphs (auto) 1.39 (1.0-4.6) Absolute Monos (auto) 1.87 H (0.0-1.3) Lymphocytes % 13.1 L (24.0-44.0) % Monocytes % 17.6 H (0.0-12.0) % Eosinophils % 4.0 (0.00-5.0) % Basophils % 0.8 (0.0-0.4) % Absolute Granulocytes 6.87 (1.4-6.9) Basophils # 0.08 (0-0.4) D-Dimer (215-500) ng/mL Sodium (137-145) mmol/L Potassium (3.5-5.1) mmol/L Chloride (98-107) mmol/L Carbon Dioxide (22-30) mmol/L Anion Gap (5-15) MEQ/L BUN (9-20) mg/dL Creatinine (0.66-1.25) mg/dL Estimated GFR ML/MIN Glucose (74-106) mg/dL Lactic Acid (0.4-2.0) Calcium (8.4-10.2) mg/dL Magnesium (1.6-2.3) mg/dL Total Bilirubin (0.2-1.3) mg/dL AST (17-59) U/L ALT (0-50) U/L Alkaline Phosphatase (38-126) U/L Troponin I (0.000-0.034) ng/mL NT-Pro-B Natriuret Pep (0-1800) pg/mL Serum Total Protein (6.3-8.2) g/dL Albumin (3.5-5.0) g/dL Urine Color (YELLOW) Urine Appearance (CLEAR) Urine pH (5-6) Ur Specific [place] (1.005-1.025) Urine Protein (Negative) Urine Ketones (NEGATIVE) Urine Blood (0-5) Allen/ul Urine Nitrite (NEGATIVE) Urine Bilirubin (NEGATIVE) Urine Urobilinogen (0-1) mg/dL Ur Leukocyte Esterase (NEGATIVE) Urine WBC (Auto) (0-5) /HPF Urine RBC (Auto) (0-2) /HPF U Hyaline Cast (Auto) (0-2) /LPF U Epithel Cells (Auto) (FEW) /HPF Urine Bacteria (Auto) (NEGATIVE) /HPF Urine Mucus (Auto) (NEGATIVE) /HPF Urine Culture Reflexed (NO) Urine Glucose (NEGATIVE) mg/dL Digoxin (0.8-1.9) ng/mL Slides for Path Review - Progress Progress Note: 08/06/20 13:19 Ultrasound of right testicle reveals a right-sided hydrocele. The right t esticle appears normal. No evidence of testicular torsion of the right side. 08/06/20 14:49 CAT scan of the chest with contrast shows no pulmonary embolus. There is stable cardiomegaly with slight worsening moderate bilateral pleural effusions favoring cardiac decompensation/CHF. Medical decision making: This patient has congestive heart failure, digoxin toxicity, elevated troponin, and anemia. I spoke with Dr. Altagracia Hays who is covering for Dr. Duncan, the patient's cylinder dyer. I reviewed the patient history, condition, laboratory results, EKG findings and CAT scan of the chest results. He accepts the patient in transfer to the [facility]. We will call the transfer center there. Patient and his spouse are informed and they agreed to the transfer. Counseled pt/family regarding: lab results, diagnosis, rad results - Departure Departure Disposition: Transfer Clinical Impression: CHF (congestive heart failure), Digoxin toxicity, Elevated troponin, Anemia Condition: Fair Critical Care Time: Yes Critical Care Time(excluding separately billable procedures): Critical 30-74 mins Referrals: MANJIT MALDONADO MD [Primary Care Provider] - Instructions: Heart Failure
[2020-08-06] MEDS ORDERED: ATROPINE SULFATE 1MG IV ONE (12:12)
[2020-08-06 12:55] LABS: Absolute Neutrophil Ct (ANC) 6.87 (1.4-6.9); BASOPHIL % 0.8 % (0.0-0.4); Basophil (Absolute #) 0.08 (0-0.4); Eosinophil (Absolute #) 0.42 (0-0.5); Hematocrit 31.4 % (42-50); Hemoglobin 8.6 gm/dl (12.5-18.0); Lymphocyte (Absolute #) 1.39 (1.0-4.6); Lymphocytes % 13.1 % (24.0-44.0); Mean Cell Volume 85.3 fl (78-100); Mean Corpuscular Hemoglobin 23.4 pg (26-32); Mean Corpuscular Hgb Concent. 27.4 g/dl (32-36); Mean Platelet Volume 9.8 fl (7.5-11.0); Monocyte (Absolute #) 1.87 (0.0-1.3); Monocytes % 17.6 % (0.0-12.0); Neutrophil % 64.5 % (36.0-66.0); Platelet Count 334 K/mm3 (150-450); Red Blood Count 3.68 M/mm3 (4.1-5.6); Red Cell Distribution Width 18.6 % (11.5-14.0); White Blood Count 10.6 K/mm3 (4.0-10.5)
[2020-08-06 13:14] LABS: ALBUMIN 3.7 g/dL (3.5-5.0); ALKALINE PHOSPHATASE 57 U/L (38-126); ANION GAP 8.5 MEQ/L (5-15); BLOOD UREA NITROGEN 38 mg/dL (9-20); CHLORIDE 98 mmol/L (98-107); Calcium 8.9 mg/dL (8.4-10.2); Carbon Dioxide 37 mmol/L (22-30); Creatinine 1 1.09 mg/dL (0.66-1.25); EST GLOMERULAR FILTRATION RATE > 60.0 ML/MIN; Glucose 109 mg/dL (74-106); MAGNESIUM 2.1 mg/dL (1.6-2.3); NT PRO BNP 7730 pg/mL (0-1800); Potassium 4.4 mmol/L (3.5-5.1); SGOT/AST 34 U/L (17-59); SGPT/ALT 29 U/L (0-50); SODIUM 139 mmol/L (137-145); Total Protein 6.9 g/dL (6.3-8.2)
[2020-08-06 13:28] LABS: Appearance CLOUDY (CLEAR); Bilirubin NEGATIVE (NEGATIVE); Blood SMALL Ery/ul (0-5); Epithelial Cells RARE /HPF (FEW); Glucose NEGATIVE (NEGATIVE); Ketones NEGATIVE (NEGATIVE); Leukocyte Esterase NEGATIVE (NEGATIVE); Mucus SLIGHT /HPF (NEGATIVE); Nitrite NEGATIVE (NEGATIVE); Protein,Urine Dip NEGATIVE (Negative); RBC 0-2 /HPF (0-2); Specific Gravity 1.012 (1.005-1.025); Urobilinogen 2 mg/dL (0-1)
[2020-08-06] MEDS ORDERED: Sodium Chloride 0.9% 1000 ML 1,000 ML IV SCH (13:30)
--- NOTE | 2020-08-06 13:46 | XRAY ---
Indication: Right testicle swelling. Two-dimensional testicular sonogram performed. Comparison: None Right testicle measures 4.5 x 2.4 x 3.1 cm and the left measures 5.2 x 2.4 x 3.4 cm. Normal perfusion bilaterally. No focal solid/cystic testicular mass. Left and right epididymis unremarkable. Large right and tiny left hydroceles. No suspicious extratesticular mass. Impression: Nonspecific large right and tiny left scrotal hydroceles. Negative for intra/extra testicular mass or torsion.
[2020-08-06] MEDS ORDERED: MORPHINE SULFATE 2 MG INJ IV ONE (13:56)
[2020-08-06] MEDS ORDERED: Zofran 4 MG/2 ML VIAL IV ONE (13:56)
[2020-08-06] MEDS ORDERED: NORCO 7.5/325 MG TAB PO ONE (14:05)
[2020-08-06] MEDS ORDERED: Sodium Chloride 0.9% 1000 ML 1,000 ML ONE (14:08)
[2020-08-06] MEDS ORDERED: NORCO 7.5/325 MG TAB ONE (14:19)
--- NOTE | 2020-08-06 14:32 | XRAY ---
Indication: Chest pain, short of breath, and elevated d-dimer. Multiple contiguous axial images obtained through the chest using 80 cc Isovue 370 contrast and PE protocol. Comparison: June 08, 2020. There is good opacification of the pulmonary arteries to include lobar and segmental branches. Again mild respiration artifact limits evaluation of the more distal pulmonary arteries. No central pulmonary embolus. Heart remains enlarged. Aorta remains mildly arteriosclerotic without aneurysm/dissection. No pathologic mediastinal/hilar lymphadenopathy. There remains moderate bilateral pleural effusions slightly more than before again with bilateral compressive atelectasis greatest in both lower lobes. Bony thorax intact again with osteopenia, degenerative changes throughout the spine, old right rib fractures, and bilateral shoulder arthroplasty. Limited upper abdomen demonstrates new tiny perihepatic fluid. Impression: 1. Pulmonary embolus evaluation again limited by respiration artifact. Again no pulmonary embolus. 2. Stable cardiomegaly with slight worsening moderate bilateral pleural effusions favoring cardiac decompensation/CHF. Superimposed pneumonia not completely excluded. 2. New tiny perihepatic fluid possibly related to cardiac decompensation/CHF.
[2020-08-06] MEDS ORDERED: Lasix 40 MG/4 ML IV ONE (14:40)
[2020-08-06 16:01] VITALS: BP 178/70; PULSE 47; O2SAT 94
[2020-08-06] MEDS ORDERED: Zofran 4 MG/2 ML VIAL ONE (16:12)
[2020-08-06] MEDS ORDERED: Lasix 40 MG/4 ML ONE (16:13)
== END 2020-08-06 16:42 | disposition short-term general hospital (02) ==
LOC: ED 11:32
DX: I50.9 Heart failure, unspecified (principal); T46.0X5A Adverse effect of cardiac-stimulant glycosides and drugs of similar action, initial encounter; R77.8 Other specified abnormalities of plasma proteins; D64.9 Anemia, unspecified; I10 Essential (primary) hypertension; K21.9 Gastro-esophageal reflux disease without esophagitis; Z79.01 Long term (current) use of anticoagulants; Z79.899 Other long term (current) drug therapy
CPT/HCPCS: 36000; 36415; 51702; 71260; 76870; 80053; 80162; 81001; 83605; 83735; 83880; 84484; 85025; 85379; 93005; 93041; 96374; 96375; 99285; 99291; J1940; J2405; A9270-GY

== ENCOUNTER 2020-09-04 20:50 | Emergency (ER) | payer MEDICARE ==
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
[2020-09-04] MEDS ORDERED: Zofran 4 MG/2 ML VIAL ONE (21:30)
[2020-09-04] MEDS ORDERED: CARDIZEM DRIP 100 MG/100 ML D5W 100 ML IV ONE (21:30)
[2020-09-04] MEDS ORDERED: BABY ASPIRIN 81 MG CHEW ONE (21:30)
[2020-09-04] MEDS ORDERED: Cardizem IV 50 MG/10 ML IV ONE (21:30)
[2020-09-04] MEDS ORDERED: Sodium Chloride 0.9% 1000 ML 1,000 ML ONE ×2 (21:30→23:37)
[2020-09-04] MEDS: Sodium Chloride 0.9% 1000 ML 1,000 ML IV STA (21:33)
[2020-09-04] MEDS: Cardizem IV 50 MG/10 ML IV ONE (21:38)
[2020-09-04] MEDS: Zofran 4 MG/2 ML VIAL IV ONE (21:39)
[2020-09-04] MEDS: BABY ASPIRIN 81 MG CHEW PO ONE (21:39)
[2020-09-04] MEDS: CARDIZEM DRIP 100 MG/100 ML D5W 100 ML IV PRN (21:42)
[2020-09-04 21:46] LABS: Absolute Neutrophil Ct (ANC) 3.52 (1.4-6.9); BASOPHIL % 1.3 % (0.0-0.4); Basophil (Absolute #) 0.09 (0-0.4); Eosinophil % 12.2 % (0.00-5.0); Eosinophil (Absolute #) 0.85 (0-0.5); Hematocrit 26.6 % (42-50); Hemoglobin 7.2 gm/dl (12.5-18.0); Lymphocyte (Absolute #) 1.44 (1.0-4.6); Lymphocytes % 20.7 % (24.0-44.0); Mean Cell Volume 81.1 fl (78-100); Mean Corpuscular Hgb Concent. 27.1 g/dl (32-36); Mean Platelet Volume 9.5 fl (7.5-11.0); Monocyte (Absolute #) 1.06 (0.0-1.3); Monocytes % 15.2 % (0.0-12.0); Neutrophil % 50.6 % (36.0-66.0); Platelet Count 265 K/mm3 (150-450); Red Blood Count 3.28 M/mm3 (4.1-5.6)
[2020-09-04 21:51] LABS: Appearance CLEAR (CLEAR); Bilirubin NEGATIVE (NEGATIVE); Blood NEGATIVE Ery/ul (0-5); Glucose NEGATIVE (NEGATIVE); Hyaline Casts 0-2 /LPF (0-2); Ketones NEGATIVE (NEGATIVE); Leukocyte Esterase NEGATIVE (NEGATIVE); Mucus SLIGHT /HPF (NEGATIVE); Nitrite NEGATIVE (NEGATIVE); Protein,Urine Dip NEGATIVE (Negative); Specific Gravity 1.015 (1.005-1.025); Urobilinogen 4 mg/dL (0-1)
[2020-09-04 21:58] LABS: ALBUMIN 3.8 g/dL (3.5-5.0); ALKALINE PHOSPHATASE 49 U/L (38-126); ANION GAP 9.1 MEQ/L (5-15); BLOOD UREA NITROGEN 22 mg/dL (9-20); CHLORIDE 95 mmol/L (98-107); Calcium 9.2 mg/dL (8.4-10.2); Carbon Dioxide 36 mmol/L (22-30); Creatinine 1 0.99 mg/dL (0.66-1.25); EST GLOMERULAR FILTRATION RATE > 60.0 ML/MIN; Glucose 102 mg/dL (74-106); MAGNESIUM 1.9 mg/dL (1.6-2.3); Potassium 3.6 mmol/L (3.5-5.1); SGOT/AST 26 U/L (17-59); SGPT/ALT 19 U/L (0-50); SODIUM 136 mmol/L (137-145); Total Protein 6.9 g/dL (6.3-8.2)
[2020-09-04] MEDS ORDERED: ROCEPHIN 1 Gm-D5w 50 ml Bag** 1 G/50 ML IVPB IV ONE (22:11)
[2020-09-04] MEDS ORDERED: Zithromax 500 MG/ 250 ML NaCl Premix 500 MG/250 ML IVPB IV ONE (22:11)
[2020-09-04 22:21] LABS: INR 2.88 (0.8-3.0); PROTIME 32.9 SECONDS (8.83-12.87)
[2020-09-04 22:24] LABS: PTT 40.3 SECONDS (24.1-36.1)
[2020-09-04] MEDS: ROCEPHIN 1 Gm-D5w 50 ml Bag** 1 G/50 ML IVPB IV STA (22:27)
[2020-09-04] MEDS: Zithromax 500 MG/ 250 ML NaCl Premix 500 MG/250 ML IVPB IV STA (22:55)
[2020-09-04] MEDS ORDERED: PROTONIX 40 MG IV IV ONE ×2 (23:00→23:03)
[2020-09-04] MEDS ORDERED: Sodium Chloride 0.9% 500 ML 500 ML IV ONE (23:03)
[2020-09-04] MEDS: PROTONIX 40 MG IV IV ONE (23:05)
[2020-09-04 23:13] LABS: ABO TYPING A; Antibody Screen NEGATIVE (NEGATIVE); RH TYPING POSITIVE
[2020-09-04] MEDS: PROTONIX 40 MG IV*** 80 MG in Sodium Chloride 0.9% 500 ML 500 ML IV SCH (23:22)
[2020-09-04] MEDS: Sodium Chloride 0.9% 1000 ML 1,000 ML IV SCH (23:52)
[2020-09-05 00:08] VITALS: BP 120/79; PULSE 129; O2SAT 100
[2020-09-05 01:16] LABS: Slide Review 1 YES
--- NOTE | 2020-09-05 08:36 | XRAY ---
Indication: Short of breath. Tachycardia. Comparison: August 18, 2020. Portable chest demonstrates interval worsening cardiomegaly, central vascular congestion, and bibasilar effusions/atelectasis again concerning for cardiac decompensation/CHF. Superimposed pneumonia not completely excluded.
== END 2020-09-04 23:45 | disposition short-term general hospital (02) ==
LOC: ED 20:50
DX: R33.9 Retention of urine, unspecified (principal); I48.20 Chronic atrial fibrillation, unspecified; J90 Pleural effusion, not elsewhere classified; J18.9 Pneumonia, unspecified organism; I10 Essential (primary) hypertension; E78.5 Hyperlipidemia, unspecified; R10.2 Pelvic and perineal pain; R06.02 Shortness of breath; D64.9 Anemia, unspecified; Z79.899 Other long term (current) drug therapy
CPT/HCPCS: 36000; 36415; 71045; 80053; 80162; 81001; 83735; 84484; 85025; 85610; 85730; 86850; 86900; 86901; 87040; 87086; 93005; 96360; 96361; 96365; 96367; 96374; 96375; 99285; 99291; 99292; J0456; J0696; J2405; A9270-GY

== ENCOUNTER 2020-09-14 13:43 | Emergency (ER) | payer MEDICARE ==
--- NOTE | 2020-09-14 13:46 | ERPHSYRPT ---
- History of Present Illness Time Seen by Provider: 09/14/20 13:46 Source: patient, family Exam Limitations: no limitations Physician History: This is an 85-year-old white male who was diagnosed with bladder cancer in 2011 and urinary retention 10 days ago and a Anderson catheter was placed along with a leg bag. Patient's spouse called this morning and stated that she wanted to bring him into the hospital because of having to change his Anderson bag too often. However, when the patient was asked what kind of problems he was having he stated that he does not want a bigger bag or any other type of back place. His problem, he states, is "the catheter tube keeps coming out of my pecker". He states he has no other problems. Timing/Duration: day(s) (Couple of days) Activites at Onset: none Quality: other (No pain) Onset Location: urethral (Catheter slippage) Severity of Pain-Max: none Severity of Pain-Current: none Associated Symptoms: other (None) Sexual intercourse history: non-contributory Allergies/Adverse Reactions: No Known Allergies Allergy (Verified 09/04/20 21:14) Home Medications: Aspirin 81 gm Chew [Baby Aspirin 81 mg Chew] 81 mg PO DAILY 06/08/20 [History] Hydrocodone/Acetaminophen [Hydrocodone-Acetamin 7.5-325] 1 tab PO Q4H PRN PRN 06/08/20 [History] Morphine Sulfate Cr 15 mg [Ms Contin 15 MG] 15 mg PO HS 06/08/20 [History] Morphine Sulfate Cr 30 mg [Ms Contin 30 mg] 30 mg PO DAILY 06/08/20 [History] PANTOPRAZOLE 40 mg Tablet [Protonix 40MG Tablet] 40 mg PO BID 06/08/20 [History] Sertraline HCl 100 mg PO DAILY 06/08/20 [History] Hx Tetanus, Diphtheria Vaccination/Date Given: Yes Hx Influenza Vaccination/Date Given: Yes Hx Pneumococcal Vaccination/Date Given: Yes Travel Risk - International Travel Have you traveled outside of the country in past 3 weeks: No - Coronavirus Screening Are you exhibiting any of the following symptoms?: No Close contact with a COVID-19 positive Pt in past 14-21 Days: No - Past Medical History Pertinent Past Medical History: Yes Cardiac History: Arrhythmia, Hypertension Respiratory History: CHF Musculoskeletal History: Arthritis GI Medical History: Other History: Renal Disease Psycho-Social History: Depression Other Medical History: bladder cancer 2012. - Past Surgical History Past Surgical History: Yes Neuro Surgical History: No Pertinent History Cardiac: No Pertinent History Respiratory: No Pertinent History Gastrointestinal: Other Genitourinary: No Pertinent History Musculoskeletal: Orthopedic Surgery Male Surgical History: No Pertinent History Other Surgical History: bilat hip replacement, bilat shoulder replacement. 1st layer bladder removed. Pt poor historian - Social History Smoking Status: Never smoker Exposure to second hand smoke: No Drug Use: none Patient Lives Alone: No - Review of Systems Constitutional: No Symptoms Eyes: No Symptoms Ears, Nose, & Throat: No Symptoms Respiratory: No Symptoms Cardiac: No Symptoms Abdominal/Gastrointestinal: No Symptoms Genitourinary Symptoms: No Symptoms Musculoskeletal: No Symptoms Skin: No Symptoms Neurological: No Symptoms Psychological: No Symptoms Endocrine: No Symptoms Hematologic/Lymphatic: No Symptoms Immunological/Allergic: No Symptoms All Other Systems: Reviewed and Negative - Physical Exam General Appearance: no apparent distress, alert Eye Exam: PERRL/EOMI, eyes nml inspection Ears, Nose, Throat Exam: normal ENT inspection, moist mucous membranes Neck Exam: normal inspection, non-tender, supple, full range of motion Respiratory Exam: airway intact, No chest tenderness, No respiratory distress Gastrointestinal/Abdomen Exam: soft, normal bowel sounds, No tenderness Rectal Exam: not done Male Genital Exam: normal genitalia (Anderson catheter in place with leg bag) Back Exam: normal inspection, normal range of motion, No CVA tenderness, No vertebral tenderness Neurologic Exam: alert, oriented x 3, cooperative, 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 Patient states that the Anderson catheter seems to slide out of his urethra. His spouse is concerned that the leg bag is too small. They are having to replace frequently. The patient is adamant that he does not want a larger leg bag. Patient has no other complaints. Today, we will change out his catheter and the same size leg bag. We have informed the patient's spouse as well. Counseled pt/family regarding: diagnosis, need for follow-up - Departure Departure Disposition: Home Clinical Impression: Encounter for medical screening examination, Problem with Anderson catheter Condition: Stable Critical Care Time: No Referrals: MANJIT MALDONADO MD [Primary Care Provider] - Additional Instructions: Continue Anderson catheter maintenance care as instructed. Follow-up with your primary care physician and/or urologist for further management.
[2020-09-14 14:10] VITALS: BP 166/88; PULSE 87; O2SAT 100
== END 2020-09-14 15:02 | disposition home or self-care (01) ==
LOC: ED 13:43
DX: Z46.6 Encounter for fitting and adjustment of urinary device (principal)
CPT/HCPCS: 99283

== ENCOUNTER 2020-10-19 04:08 | Emergency (ER) | payer MEDICARE ==
[2020-10-19] MEDS ORDERED: XYLOCAINE 2% Uro-Jet ONE (04:49)
[2020-10-19] MEDS ORDERED: XYLOCAINE 2% Uro-Jet TOP ONE (04:55)
--- NOTE | 2020-10-19 05:22 | ERPHSYRPT ---
- History of Present Illness Time Seen by Provider: 10/19/20 04:35 Source: patient Exam Limitations: no limitations Physician History: Patient is an 85-year-old white male who presents to the ER with the removal unexpectedly of his Anderson catheter. Despite the balloon it did manage to come through the urethra. He has a problem with chronic prostate enlargement and a history of bladder cancer he was recently admitted to [facility] for atrial fib with a rapid ventricular response that was brought under control and he was started on blood thinners as result he has been bleeding somewhat from the penal meatus since the catheter was pulled out. Timing/Duration: today Activites at Onset: sleep Quality: stabbing Onset Location: urethral Pain Radiation: none Severity of Pain-Max: severe Severity of Pain-Current: mild Modifying Factors: Improves With: nothing Associated Symptoms: denies symptoms Prior abdominal problems: none Allergies/Adverse Reactions: No Known Allergies Allergy (Verified 10/19/20 04:20) Home Medications: Aspirin 81 gm Chew [Baby Aspirin 81 mg Chew] 81 mg PO DAILY 06/08/20 [History] Hydrocodone/Acetaminophen [Hydrocodone-Acetamin 7.5-325] 1 tab PO Q4H PRN PRN 06/08/20 [History] Morphine Sulfate Cr 15 mg [Ms Contin 15 MG] 15 mg PO HS 06/08/20 [History] Morphine Sulfate Cr 30 mg [Ms Contin 30 mg] 30 mg PO DAILY 06/08/20 [History] PANTOPRAZOLE 40 mg Tablet [Protonix 40MG Tablet] 40 mg PO BID 06/08/20 [History] Sertraline HCl 100 mg PO DAILY 06/08/20 [History] Hx Tetanus, Diphtheria Vaccination/Date Given: Yes Hx Influenza Vaccination/Date Given: Yes Hx Pneumococcal Vaccination/Date Given: Yes - Past Medical History Pertinent Past Medical History: Yes Neurological History: No Pertinent History ENT History: No Pertinent History Cardiac History: Arrhythmia, Hypertension Respiratory History: CHF Endocrine Medical History: No Pertinent History Musculoskeletal History: Arthritis GI Medical History: Other History: Renal Disease Psycho-Social History: Depression Male Reproductive Disorders: No Pertinent History Other Medical History: bladder cancer 2011. - Past Surgical History Past Surgical History: Yes Neuro Surgical History: No Pertinent History Cardiac: No Pertinent History Respiratory: No Pertinent History Gastrointestinal: Other Genitourinary: No Pertinent History Musculoskeletal: Orthopedic Surgery Male Surgical History: No Pertinent History Other Surgical History: Bilateral hip replacement, Bilateral shoulder replacement - Social History Smoking Status: Never smoker Exposure to second hand smoke: No Drug Use: none Patient Lives Alone: No - Review of Systems Constitutional: No Fever, No Chills Eyes: No Symptoms Ears, Nose, & Throat: No Symptoms Respiratory: No Cough, No Dyspnea Cardiac: No Chest Pain, No Edema, No Syncope Abdominal/Gastrointestinal: No Abdominal Pain, No Nausea, No Vomiting, No Diarrhea Genitourinary Symptoms: Urinary Retention, No Dysuria Musculoskeletal: No Back Pain, No Neck Pain Skin: No Rash Neurological: No Dizziness, No Focal Weakness, No Sensory Changes Psychological: No Symptoms Endocrine: No Symptoms All Other Systems: Reviewed and Negative - Nursing Vital Signs Nursing Vital Signs: Initial Vital Signs Temperature 97.7 F 10/19/20 04:15 Pulse Rate 76 10/19/20 04:15 Respiratory Rate 22 10/19/20 04:15 Blood Pressure 184/96 10/19/20 04:15 O2 Sat by Pulse Oximetry 99 10/19/20 04:15 Pain Scale Pain Intensity 3 - Physical Exam General Appearance: mild distress, alert Eye Exam: PERRL/EOMI Ears, Nose, Throat Exam: pharynx normal, moist mucous membranes Neck Exam: normal inspection, supple Respiratory Exam: normal breath sounds, lungs clear Cardiovascular Exam: regular rate/rhythm, No edema Gastrointestinal/Abdomen Exam: soft, No tenderness Male Genital Exam: normal genitalia, bleeding ([place]) Back Exam: normal inspection, No CVA tenderness Extremity Exam: normal inspection, normal range of motion, No pedal edema Neurologic Exam: alert, oriented x 3, cooperative, sensation nml, No motor deficits Skin Exam: normal color, warm, dry, No rash SpO2: 99 - Course Nursing assessment & vital signs reviewed: Yes Ordered Tests: Medication Summary Discontinued Medications Generic Name Dose Route Start Last Admin Trade Name Freq PRN Reason Stop Dose Admin Lidocaine HCl Confirm 10/19/20 04:49 Xylocaine 2% Uro-Jet Administered 10/19/20 04:50 Dose 200 mg .ROUTE .STK-MED ONE Lidocaine HCl 200 mg 10/19/20 04:55 10/19/20 04:57 Xylocaine 2% Uro-Jet TOP 10/19/20 04:56 200 mg STAT ONE Administration - Progress Progress: improved Progress Note: 10/19/20 05:21 16 Albanian Anderson catheter was anchored without difficulty there was initially some blood in the urine but that cleared there is only bleeding from the meatus at the present time. 10/19/20 05:56 Back at 5:57 AM indicates no active bleeding from the meatus catheter is functioning - Departure Departure Disposition: Home Clinical Impression: Urinary catheter dysfunction, Urinary retention, Problem with Anderson catheter Condition: Stable Critical Care Time: No Referrals: MANJIT MALDONADO MD [Primary Care Provider] - Instructions: How to Care for Your Anderson Catheter, Male Additional Instructions: Patient was instructed not to take his Eliquis blood thinner today but to resume tomorrow Prescriptions: Ciprofloxacin [Cipro 500 MG] 500 mg PO BID #14 tablet
[2020-10-19 07:09] VITALS: BP 172/88; PULSE 74; O2SAT 98
== END 2020-10-19 07:09 | disposition home or self-care (01) ==
LOC: ED 04:08
DX: Z46.6 Encounter for fitting and adjustment of urinary device (principal); R33.9 Retention of urine, unspecified; I10 Essential (primary) hypertension; I50.9 Heart failure, unspecified; Z79.899 Other long term (current) drug therapy; Z79.891 Long term (current) use of opiate analgesic
CPT/HCPCS: 51702; 99284

== ENCOUNTER 2022-02-20 02:51 | Observation (INO) | payer MEDICARE ==
--- NOTE | 2022-02-20 03:24 | ERPHSYRPT ---
- History of Present Illness Time Seen by Provider: 02/20/22 03:00 Source: patient Exam Limitations: no limitations Patient Subjective Stated Complaint: had procedure done at [facility] yesterday at 1530 and hasn't been able to urinate since he got home Triage Nursing Assessment: pt had procedure done at [facility] on 02/19/22. Urologist went into pt's bladder to check a "spot" that appears suspicious, pt has hx of bladder cancer. Pt has been unable to void since procedure which has been approx 12 hours. Pt's abd is uncomfortable, tender on palpation. Physician History: Patient is an 86-year-old male presents to our ED for evaluation of urinary retention. Patient had a bladder biopsy today at [facility] at approximately 3:30 PM. Patient has not urinated since. Patient has a history of bladder cancer for which she is being evaluated. Patient voices no other complaints or concerns at this time. Patient denies abdominal pain. However he is experiencing suprapubic fullness. No diarrhea. No chest pain or shortness of breath. No nausea vomiting or diaphoresis. No fever. Patient voices no other complaints or concerns at this time. Timing/Duration: yesterday Severity: moderate Modifying Factors: Improves With: nothing Associated Symptoms: denies symptoms Allergies/Adverse Reactions: No Known Allergies Allergy (Verified 02/20/22 03:09) Home Medications: Aspirin 81 gm Chew [Baby Aspirin 81 mg Chew] 81 mg PO DAILY 06/08/20 [History] Hydrocodone/Acetaminophen [Hydrocodone-Acetamin 7.5-325] 1 tab PO Q4H PRN PRN 06/08/20 [History] Morphine Sulfate Cr 15 mg [Ms Contin 15 MG] 15 mg PO HS 06/08/20 [History] Morphine Sulfate Cr 30 mg [Ms Contin 30 mg] 30 mg PO DAILY 06/08/20 [History] PANTOPRAZOLE 40 mg Tablet [Protonix 40MG Tablet] 40 mg PO BID 06/08/20 [History] Sertraline HCl 100 mg PO DAILY 06/08/20 [History] Hx Tetanus, Diphtheria Vaccination/Date Given: Yes Hx Influenza Vaccination/Date Given: No Hx Pneumococcal Vaccination/Date Given: Yes Immunizations Up to Date: Yes Travel Risk - International Travel Have you traveled outside of the country in past 3 weeks: No - Coronavirus Screening Are you exhibiting any of the following symptoms?: No Close contact with a COVID-19 positive Pt in past 14-21 Days: No - Vaccine Status Have you recieved a Covid-19 vaccination: No - Review of Systems Constitutional: No Symptoms, No Fever, No Chills Eyes: No Symptoms Ears, Nose, & Throat: No Symptoms Respiratory: No Symptoms, No Cough, No Dyspnea Cardiac: No Symptoms, No Chest Pain, No Edema, No Syncope Abdominal/Gastrointestinal: No Symptoms, No Abdominal Pain, No Nausea, No Vomiting, No Diarrhea Genitourinary Symptoms: No Symptoms, No Dysuria Musculoskeletal: No Symptoms, No Back Pain, No Neck Pain Skin: No Symptoms, No Rash Neurological: No Symptoms, No Dizziness, No Focal Weakness, No Sensory Changes Psychological: No Symptoms Endocrine: No Symptoms Hematologic/Lymphatic: No Symptoms Immunological/Allergic: No Symptoms All Other Systems: Reviewed and Negative - Past Medical History Pertinent Past Medical History: Yes Neurological History: No Pertinent History ENT History: No Pertinent History Cardiac History: Arrhythmia, Hypertension Respiratory History: CHF Endocrine Medical History: No Pertinent History Musculoskeletal History: Arthritis GI Medical History: Other History: Renal Disease Psycho-Social History: Depression Male Reproductive Disorders: No Pertinent History Other Medical History: bladder cancer 2012. home oxygen at bedtime - Past Surgical History Past Surgical History: Yes Neuro Surgical History: No Pertinent History Cardiac: No Pertinent History Respiratory: No Pertinent History Gastrointestinal: Other Genitourinary: Other Musculoskeletal: Orthopedic Surgery Male Surgical History: No Pertinent History Other Surgical History: Bilateral hip replacement, Bilateral shoulder replacement, bladder biopsy - Social History Smoking Status: Never smoker Exposure to second hand smoke: Yes Drug Use: none Patient Lives Alone: No - Nursing Vital Signs Nursing Vital Signs: Initial Vital Signs Temperature 98.5 F 02/20/22 02:51 Pulse Rate 60 02/20/22 02:51 Respiratory Rate 18 02/20/22 02:51 Blood Pressure 148/99 02/20/22 02:51 O2 Sat by Pulse Oximetry 93 L 02/20/22 02:51 Pain Scale Pain Intensity 0 - Physical Exam General Appearance: no apparent distress, alert Eye Exam: PERRL/EOMI, eyes nml inspection Ears, Nose, Throat Exam: normal ENT inspection, TMs normal, pharynx normal, moist mucous membranes Neck Exam: normal inspection, non-tender, supple, full range of motion Respiratory Exam: normal breath sounds, lungs clear, airway intact, No respiratory distress Cardiovascular Exam: regular rate/rhythm, normal heart sounds, normal peripheral pulses Gastrointestinal/Abdomen Exam: soft, normal bowel sounds, other (Fullness at the suprapubic region.), No tenderness, No mass Back Exam: normal inspection, normal range of motion, No CVA tenderness, No vertebral tenderness Extremity Exam: normal inspection, normal range of motion, pelvis stable Neurologic Exam: alert, oriented x 3, cooperative, normal mood/affect, nml cerebellar function, nml station & gait, sensation nml, No motor deficits Skin Exam: normal color, warm, dry, No rash Lymphatic Exam: No adenopathy SpO2 Interpretation: normal SpO2: 93 O2 Delivery: Room Air - Course Nursing assessment & vital signs reviewed: Yes Ordered Tests: Active Orders 24 hr Category Date Time Status CBC W DIFF Stat Lab 02/20/22 03:51 Completed CMP Stat Lab 02/20/22 03:51 Completed CULTURE,URINE Stat Lab 02/20/22 03:40 Received UA W/RFX CULTURE Stat Lab 02/20/22 03:40 Completed Transfer Order Routine Transfer 02/20/22 Ordered Medication Summary Generic Name Dose Route Start Last Admin Trade Name Freq PRN Reason Stop Dose Admin Sodium Chloride 1,000 mls @ 100 mls/hr 02/20/22 04:45 02/20/22 04:44 Sodium Chloride 0.9% 1000 Ml IV 03/22/22 04:44 100 mls/hr .Q10H FERNANDO Administration Discontinued Medications Generic Name Dose Route Start Last Admin Trade Name Freq PRN Reason Stop Dose Admin Ceftriaxone Sodium/Dextrose 1 g in 50 mls @ 100 mls/hr 02/20/22 04:34 02/20/22 04:45 Rocephin 1 Gm-D5w 50 Ml Bag IV 02/20/22 05:03 100 mls/hr STAT STA 100 mls/hr Administration Ceftriaxone Sodium/Dextrose Confirm 02/20/22 04:44 Rocephin 1 Gm-D5w 50 Ml Bag Administered 02/20/22 04:45 Dose 1 g in 50 mls @ ud IV .Candy Lab-MED ONE Lab/Rad Data: Laboratory Result Diagrams 02/20/22 03:51 02/20/22 03:51 Laboratory Results 02/20/22 02/20/22 02/20/22 Range/Units 04:37 03:51 03:51 WBC 11.3 H (4.0-10.5) x10^3/uL RBC 3.67 L (4.1-5.6) x10^6/uL Hgb 11.8 L (12.5-18.0) g/dL Hct 36.1 L (42-50) % MCV 98.4 (78-100) fL MCH 32.2 H (26-32) pg MCHC 32.7 (32-36) g/dL RDW 12.7 (11.5-14.0) % Plt Count 186 (150-450) x10^3/uL MPV 9.5 (7.5-11.0) fL Gran % 83.2 H (36.0-66.0) % Immature Gran % (Auto) 0.4 (0.00-0.4) % Nucleat RBC Rel Count 0.0 (0.00-0.1) % Eos # (Auto) 0.15 (0-0.5) x10^3/uL Immature Gran # (Auto) 0.05 H (0.00-0.03) x10^3u/L Absolute Lymphs (auto) 0.77 L (1.0-4.6) x10^3/uL Absolute Monos (auto) 0.91 (0.0-1.3) x10^3/uL Absolute Nucleated RBC 0.00 (0.00-0.01) x10^3u/L Lymphocytes % 6.8 L (24.0-44.0) % Monocytes % 8.0 (0.0-12.0) % Eosinophils % 1.3 (0.00-5.0) % Basophils % 0.3 (0.0-0.4) % Absolute Granulocytes 9.41 H (1.4-6.9) x10^3/uL Basophils # 0.03 (0-0.4) x10^3/uL Sodium 132 L (137-145) mmol/L Potassium 3.9 (3.5-5.1) mmol/L Chloride 94 L (98-107) mmol/L Carbon Dioxide 32 H (22-30) mmol/L Anion Gap 9.7 (5-15) MEQ/L BUN 21 H (9-20) mg/dL Creatinine 1.50 H (0.66-1.25) mg/dL Estimated GFR 47.3 ML/MIN Glucose 122 H (74-106) mg/dL Calcium 8.4 (8.4-10.2) mg/dL Total Bilirubin 1.20 (0.2-1.3) mg/dL AST 31 (17-59) U/L ALT 19 (0-50) U/L Alkaline Phosphatase 85 (38-126) U/L Serum Total Protein 6.3 (6.3-8.2) g/dL Albumin 3.1 L (3.5-5.0) g/dL Urinalys Dipstick Clnc Urine Color (YELLOW) Urine Appearance (CLEAR) Urine pH (5-6) Ur Specific Heidrick (1.005-1.025) POC Urine Protein Conf (Negative) Urine Ketones (NEGATIVE) Urine Nitrite (NEGATIVE) Urine Bilirubin (NEGATIVE) Urine Urobilinogen (0-1) mg/dL Urine Leukocytes (NEGATIVE) Urine WBC (Auto) (0-5) /HPF Urine RBC (Auto) (0-2) /HPF U Epithel Cells (Auto) (FEW) /HPF Urine Bacteria (Auto) (NEGATIVE) /HPF Urine RBC (0-5) Allen/ul Ur Culture Indicated? Urine Glucose (NEGATIVE) mg/dL Influenza Type A Ag NEGATIVE (NEGATIVE) Influenza Type B Ag NEGATIVE (NEGATIVE) RSV (PCR) NEGATIVE (Negative) SARS-CoV-2 (PCR) NEGATIVE (NEGATIVE) 02/20/22 Range/Units 03:40 WBC (4.0-10.5) x10^3/uL RBC (4.1-5.6) x10^6/uL Hgb (12.5-18.0) g/dL Hct (42-50) % MCV (78-100) fL MCH (26-32) pg MCHC (32-36) g/dL RDW (11.5-14.0) % Plt Count (150-450) x10^3/uL MPV (7.5-11.0) fL Gran % (36.0-66.0) % Immature Gran % (Auto) (0.00-0.4) % Nucleat RBC Rel Count (0.00-0.1) % Eos # (Auto) (0-0.5) x10^3/uL Immature Gran # (Auto) (0.00-0.03) x10^3u/L Absolute Lymphs (auto) (1.0-4.6) x10^3/uL Absolute Monos (auto) (0.0-1.3) x10^3/uL Absolute Nucleated RBC (0.00-0.01) x10^3u/L Lymphocytes % (24.0-44.0) % Monocytes % (0.0-12.0) % Eosinophils % (0.00-5.0) % Basophils % (0.0-0.4) % Absolute Granulocytes (1.4-6.9) x10^3/uL Basophils # (0-0.4) x10^3/uL Sodium (137-145) mmol/L Potassium (3.5-5.1) mmol/L Chloride (98-107) mmol/L Carbon Dioxide (22-30) mmol/L Anion Gap (5-15) MEQ/L BUN (9-20) mg/dL Creatinine (0.66-1.25) mg/dL Estimated GFR ML/MIN Glucose (74-106) mg/dL Calcium (8.4-10.2) mg/dL Total Bilirubin (0.2-1.3) mg/dL AST (17-59) U/L ALT (0-50) U/L Alkaline Phosphatase (38-126) U/L Serum Total Protein (6.3-8.2) g/dL Albumin (3.5-5.0) g/dL Urinalys Dipstick Clnc MAIN LAB Urine Color YELLOW (YELLOW) Urine Appearance SLIGHTLY CLOUDY (CLEAR) Urine pH 5.5 (5-6) Ur Specific Heidrick 1.015 (1.005-1.025) POC Urine Protein Conf 100 (Negative) Urine Ketones NEGATIVE (NEGATIVE) Urine Nitrite NEGATIVE (NEGATIVE) Urine Bilirubin NEGATIVE (NEGATIVE) Urine Urobilinogen 0.2 (0-1) mg/dL Urine Leukocytes NEGATIVE (NEGATIVE) Urine WBC (Auto) 16-25 (0-5) /HPF Urine RBC (Auto) >101 (0-2) /HPF U Epithel Cells (Auto) NONE (FEW) /HPF Urine Bacteria (Auto) RARE (NEGATIVE) /HPF Urine RBC LARGE (0-5) Allen/ul Ur Culture Indicated? YES Urine Glucose NEGATIVE (NEGATIVE) mg/dL Influenza Type A Ag (NEGATIVE) Influenza Type B Ag (NEGATIVE) RSV (PCR) (Negative) SARS-CoV-2 (PCR) (NEGATIVE) - Progress Progress: improved Progress Note: 86-year-old male presents to our ED for decreased urine output. Anderson catheter placed to assess for possible urinary retention. Small volume of urine obtained. Laboratory work-up reveals dehydration and a urinary tract infection. Acute renal injury observed as well. IV fluids infused slowly as patient has a remote history of congestive heart failure. Patient received a dose of Rocephin. Case discussed with Dr. Maldonado who accepts admission to observation. COVID test negative. Plan of care discussed with patient. He and agree to admission at [facility] for further evaluation and treatment. Portions of this note were created with voice recognition technology. There may be grammatical, spelling, punctuation or sound alike errors 02/20/22 05:[address] Sheela Will see patient in: hospital (observation) Counseled pt/family regarding: lab results, diagnosis - Departure Departure Disposition: Home Clinical Impression: Dehydration, Leukocytosis, Normocytic anemia, Hyponatremia, Acute renal injury, UTI (urinary tract infection), Hypoalbuminemia Condition: Stable Critical Care Time: No Referrals: MANJIT MALDONADO MD [Primary Care Provider] - Follow up/PCP as directed
[2022-02-20 03:56] LABS: Absolute Neutrophil Ct (ANC) 9.41 x10^3/uL (1.4-6.9); Basophil (Absolute #) 0.03 x10^3/uL (0-0.4); Eosinophil % 1.3 % (0.00-5.0); Eosinophil (Absolute #) 0.15 x10^3/uL (0-0.5); Hematocrit 36.1 % (42-50); Hemoglobin 11.8 g/dL (12.5-18.0); Lymphocyte (Absolute #) 0.77 x10^3/uL (1.0-4.6); Lymphocytes % 6.8 % (24.0-44.0); Mean Cell Volume 98.4 fL (78-100); Mean Corpuscular Hemoglobin 32.2 pg (26-32); Mean Corpuscular Hgb Concent. 32.7 g/dL (32-36); Mean Platelet Volume 9.5 fL (7.5-11.0); Monocyte (Absolute #) 0.91 x10^3/uL (0.0-1.3); Neutrophil % 83.2 % (36.0-66.0); Platelet Count 186 x10^3/uL (150-450); Red Blood Count 3.67 x10^6/uL (4.1-5.6); Red Cell Distribution Width 12.7 % (11.5-14.0); White Blood Count 11.3 x10^3/uL (4.0-10.5)
[2022-02-20 04:05] LABS: ALBUMIN 3.1 g/dL (3.5-5.0); ANION GAP 9.7 MEQ/L (5-15); BILIRUBIN,TOTAL 1.2 mg/dL (0.2-1.3); Calcium 8.4 mg/dL (8.4-10.2); Creatinine 1 1.5 mg/dL (0.66-1.25); EST GLOMERULAR FILTRATION RATE 47.3 ML/MIN; Potassium 3.9 mmol/L (3.5-5.1); Total Protein 6.3 g/dL (6.3-8.2)
[2022-02-20 04:08] LABS: Appearance SLIGHTLY CLOUDY (CLEAR); Bilirubin NEGATIVE (NEGATIVE); Glucose NEGATIVE (NEGATIVE); Ketones NEGATIVE (NEGATIVE); RBC LARGE Ery/ul (0-5); Specific Gravity 1.015 (1.005-1.025)
[2022-02-20 04:09] LABS: Dipstick done @ ? MAIN LAB; Nitrite NEGATIVE (NEGATIVE); Ph 5.5 (5-6); Protein,Urine Dip 100 (Negative); Urobilinogen 0.2 mg/dL (0-1)
[2022-02-20 04:10] LABS: Bacteria RARE /HPF (NEGATIVE); RBC >101 /HPF (0-2); Urine Cultured Indicated? YES
[2022-02-20] MEDS ORDERED: ROCEPHIN 1 Gm-D5w 50 ml Bag** 1 G/50 ML IVPB IV STA (04:34)
[2022-02-20] MEDS ORDERED: Sodium Chloride 0.9% 1000 ML 1,000 ML ONE (04:44)
[2022-02-20] MEDS ORDERED: ROCEPHIN 1 Gm-D5w 50 ml Bag** 1 G/50 ML IVPB IV ONE (04:44)
[2022-02-20] MEDS ORDERED: Sodium Chloride 0.9% 1000 ML 1,000 ML IV SCH (04:45)
[2022-02-20 05:15] LABS: INFLUENZA A NEGATIVE (NEGATIVE); INFLUENZA B NEGATIVE (NEGATIVE); RESPIRATORY SYNCTIAL VIRUS NEGATIVE (Negative); SARS-CoV-2 Xpert Express NEGATIVE (NEGATIVE)
--- NOTE | 2022-02-20 09:01 | PCM.HP ---
History of Present Illness - Chief Complaint Chief Complaint: Dehydration, MATIAS, UTI History of Present Illness: is a 86 year old male who had a biopsy of bladder tumor yesterday, apparently was unable to void so came to the ER last night, trejo was inserted with scant urine return and patient found to have dehydration with acute kidney injury. - Review of Systems Constitutional: No Fever, No Chills Respiratory: No Cough, No Short Of Breath Cardiac: No Chest Pain, No Edema, No Syncope Genitourinary Symptoms: Urinary Retention All Other Systems: Reviewed and Negative Medications & Allergies Home Medications: Home Medication List Hydrocodone/Acetaminophen [Hydrocodone-Acetamin 7.5-325] 1 tab PO Q4H PRN PRN 06/08/20 [History Confirmed 02/20/22] Morphine Sulfate Cr 15 mg [Ms Contin 15 MG] 15 mg PO HS 06/08/20 [History Confirmed 02/20/22] Morphine Sulfate Cr 30 mg [Ms Contin 30 mg] 30 mg PO DAILY 06/08/20 [History Confirmed 02/20/22] PANTOPRAZOLE 40 mg Tablet [Protonix 40MG Tablet] 40 mg PO BID 06/08/20 [History Confirmed 10/19/20] Sertraline HCl 100 mg PO DAILY 06/08/20 [History Confirmed 02/20/22] Potassium Chloride Tab* [Klor Con 10 MEQ] 10 meq PO DAILY #30 tab 07/11/20 [Rx Confirmed 02/20/22] Ciprofloxacin [Cipro 500 MG] 500 mg PO BID #14 tablet 10/19/20 [Rx Confirmed 02/20/22] Amiodarone HCl 50 mg PO DAILY 02/20/22 [History Confirmed 02/20/22] Apixaban [Eliquis 5 mg Tablet] 2.5 mg PO BID 02/20/22 [History Confirmed 02/20/22] Diltiazem HCl [Diltiazem ER] 120 mg PO DAILY 02/20/22 [History Confirmed 02/20/22] Ferrous Sulfate 325 mg PO BID 02/20/22 [History Confirmed 02/20/22] Furosemide 40 mg [Lasix 40 MG] 40 mg PO BID 02/20/22 [History Confirmed 02/20/22] Metoprolol Tartrate 25 mg [Lopressor 25MG Tab] 75 mg PO BID 02/20/22 [History Confirmed 02/20/22] Multivitamin [Multi-Vitamin Daily] 1 each PO DAILY 02/20/22 [History Confirmed 0 02/20/22] Olanzapine 5 mg [zyPREXA 5MG TABLET] 5 mg PO HS 02/20/22 [History Confirmed 02/20/22] Tamsulosin HCl 0.4 mg [Flomax 0.4 MG] 0.4 mg PO HS 02/20/22 [History Confirmed 02/20/22] Timolol Maleate/Pf [Timolol Maleate 0.5% Eye Drop] 1 each OP BID 02/20/22 [History Confirmed 02/20/22] cloNIDine HCL [Clonidine HCl] 0.2 mg PO TID 02/20/22 [History Confirmed 02/20/22] Allergies/Adverse Reactions: Allergies Allergy/AdvReac Type Severity Reaction Status Date / Time No Known Allergies Allergy Verified 02/20/22 03:09 - Past Medical History Past Medical History: Yes Neurological History: No Pertinent History ENT History: No Pertinent History Cardiac History: Arrhythmia, Hypertension Respiratory History: CHF Endocrine Medical History: No Pertinent History Musculoskelatal History: Arthritis GI Medical History: Other History: Renal Disease Pyscho-Social History: Depression Male Reproductive Disorders: No Pertinent History Comment: bladder cancer 2011. home oxygen at bedtime - Past Surgical History Past Surgical History: Yes Neuro Surgical History: No Pertinent History Cardiac History: No Pertinent History Respiratory Surgery: No Pertinent History GI Surgical History: Other Genitourinary Surgical Hx: Other Musculskeletal Surgical Hx: Orthopedic Surgery Male Surgical History: No Pertinent History Other Surgical History: Bilateral hip replacement, Bilateral shoulder replacement, bladder biopsy - Social History Smoking Status: Unknown if ever smoked Exposure to second hand smoke: Yes Alcohol: None Drug Use: none - Physical Exam Vital Signs: Vital Signs - 24 hr Temp Pulse Resp BP Pulse Ox 02/20/22 08:00 96.8 F 65 27 H 124/60 94 L 02/20/22 07:39 98.7 F 60 16 136/16 93 L 02/20/22 05:49 93 L 02/20/22 04:00 60 16 124/56 96 02/20/22 03:00 60 18 115/59 95 02/20/22 02:51 98.5 F 60 18 148/99 93 L General Appearance: no apparent distress Neurologic Exam: alert, cooperative, No oriented x 3 Respiratory Exam: normal breath sounds, lungs clear, No respiratory distress Gastrointestinal/Abdomen Exam: soft, normal bowel sounds, No tenderness, No mass Extremity Exam: normal inspection, normal range of motion, pelvis stable Skin Exam: normal color, warm, dry, No rash Results - Labs Lab/Micro Results: Lab Results-Last 24 Hours 02/20/22 02/20/22 02/20/22 Range/Units 03:40 03:51 03:51 WBC 11.3 H (4.0-10.5) x10^3/uL RBC 3.67 L (4.1-5.6) x10^6/uL Hgb 11.8 L (12.5-18.0) g/dL Hct 36.1 L (42-50) % MCV 98.4 (78-100) fL MCH 32.2 H (26-32) pg MCHC 32.7 (32-36) g/dL RDW 12.7 (11.5-14.0) % Plt Count 186 (150-450) x10^3/uL MPV 9.5 (7.5-11.0) fL Gran % 83.2 H (36.0-66.0) % Immature Gran % (Auto) 0.4 (0.00-0.4) % Nucleat RBC Rel Count 0.0 (0.00-0.1) % Eos # (Auto) 0.15 (0-0.5) x10^3/uL Immature Gran # (Auto) 0.05 H (0.00-0.03) x10^3u/L Absolute Lymphs (auto) 0.77 L (1.0-4.6) x10^3/uL Absolute Monos (auto) 0.91 (0.0-1.3) x10^3/uL Absolute Nucleated RBC 0.00 (0.00-0.01) x10^3u/L Lymphocytes % 6.8 L (24.0-44.0) % Monocytes % 8.0 (0.0-12.0) % Eosinophils % 1.3 (0.00-5.0) % Basophils % 0.3 (0.0-0.4) % Absolute Granulocytes 9.41 H (1.4-6.9) x10^3/uL Basophils # 0.03 (0-0.4) x10^3/uL Sodium 132 L (137-145) mmol/L Potassium 3.9 (3.5-5.1) mmol/L Chloride 94 L (98-107) mmol/L Carbon Dioxide 32 H (22-30) mmol/L Anion Gap 9.7 (5-15) MEQ/L BUN 21 H (9-20) mg/dL Creatinine 1.50 H (0.66-1.25) mg/dL Estimated GFR 47.3 ML/MIN Glucose 122 H (74-106) mg/dL Calcium 8.4 (8.4-10.2) mg/dL Total Bilirubin 1.20 (0.2-1.3) mg/dL AST 31 (17-59) U/L ALT 19 (0-50) U/L Alkaline Phosphatase 85 (38-126) U/L Serum Total Protein 6.3 (6.3-8.2) g/dL Albumin 3.1 L (3.5-5.0) g/dL Urinalys Dipstick Clnc MAIN LAB Urine Color YELLOW (YELLOW) Urine Appearance SLIGHTLY CLOUDY (CLEAR) Urine pH 5.5 (5-6) Ur Specific [place] 1.015 (1.005-1.025) POC Urine Protein Conf 100 (Negative) Urine Ketones NEGATIVE (NEGATIVE) Urine Nitrite NEGATIVE (NEGATIVE) Urine Bilirubin NEGATIVE (NEGATIVE) Urine Urobilinogen 0.2 (0-1) mg/dL Urine Leukocytes NEGATIVE (NEGATIVE) Urine WBC (Auto) 16-25 (0-5) /HPF Urine RBC (Auto) >101 (0-2) /HPF U Epithel Cells (Auto) NONE (FEW) /HPF Urine Bacteria (Auto) RARE (NEGATIVE) /HPF Urine RBC LARGE (0-5) Allen/ul Ur Culture Indicated? YES Urine Glucose NEGATIVE (NEGATIVE) mg/dL Influenza Type A Ag (NEGATIVE) Influenza Type B Ag (NEGATIVE) RSV (PCR) (Negative) SARS-CoV-2 (PCR) (NEGATIVE) 02/20/22 Range/Units 04:37 WBC (4.0-10.5) x10^3/uL RBC (4.1-5.6) x10^6/uL Hgb (12.5-18.0) g/dL Hct (42-50) % MCV (78-100) fL MCH (26-32) pg MCHC (32-36) g/dL RDW (11.5-14.0) % Plt Count (150-450) x10^3/uL MPV (7.5-11.0) fL Gran % (36.0-66.0) % Immature Gran % (Auto) (0.00-0.4) % Nucleat RBC Rel Count (0.00-0.1) % Eos # (Auto) (0-0.5) x10^3/uL Immature Gran # (Auto) (0.00-0.03) x10^3u/L Absolute Lymphs (auto) (1.0-4.6) x10^3/uL Absolute Monos (auto) (0.0-1.3) x10^3/uL Absolute Nucleated RBC (0.00-0.01) x10^3u/L Lymphocytes % (24.0-44.0) % Monocytes % (0.0-12.0) % Eosinophils % (0.00-5.0) % Basophils % (0.0-0.4) % Absolute Granulocytes (1.4-6.9) x10^3/uL Basophils # (0-0.4) x10^3/uL Sodium (137-145) mmol/L Potassium (3.5-5.1) mmol/L Chloride (98-107) mmol/L Carbon Dioxide (22-30) mmol/L Anion Gap (5-15) MEQ/L BUN (9-20) mg/dL Creatinine (0.66-1.25) mg/dL Estimated GFR ML/MIN Glucose (74-106) mg/dL Calcium (8.4-10.2) mg/dL Total Bilirubin (0.2-1.3) mg/dL AST (17-59) U/L ALT (0-50) U/L Alkaline Phosphatase (38-126) U/L Serum Total Protein (6.3-8.2) g/dL Albumin (3.5-5.0) g/dL Urinalys Dipstick Clnc Urine Color (YELLOW) Urine Appearance (CLEAR) Urine pH (5-6) Ur Specific [place] (1.005-1.025) POC Urine Protein Conf (Negative) Urine Ketones (NEGATIVE) Urine Nitrite (NEGATIVE) Urine Bilirubin (NEGATIVE) Urine Urobilinogen (0-1) mg/dL Urine Leukocytes (NEGATIVE) Urine WBC (Auto) (0-5) /HPF Urine RBC (Auto) (0-2) /HPF U Epithel Cells (Auto) (FEW) /HPF Urine Bacteria (Auto) (NEGATIVE) /HPF Urine RBC (0-5) Allen/ul Ur Culture Indicated? Urine Glucose (NEGATIVE) mg/dL Influenza Type A Ag NEGATIVE (NEGATIVE) Influenza Type B Ag NEGATIVE (NEGATIVE) RSV (PCR) NEGATIVE (Negative) SARS-CoV-2 (PCR) NEGATIVE (NEGATIVE) Assessment/Plan (1) Acute renal injury Current Visit: Yes Status: Acute Assessment & Plan: gently hydration, likely from mild dehydration Code(s): N17.9 - ACUTE KIDNEY FAILURE, UNSPECIFIED (2) Dehydration Current Visit: Yes Status: Acute Code(s): E86.0 - DEHYDRATION (3) UTI (urinary tract infection) Current Visit: Yes Status: Acute Assessment & Plan: on rocephin, culture pending. mostly blood from recent biopsy on ua Code(s): N39.0 - URINARY TRACT INFECTION, SITE NOT SPECIFIED (4) Urinary retention Current Visit: Yes Status: Acute Assessment & Plan: trejo draining clear urine currently Code(s): R33.9 - RETENTION OF URINE, UNSPECIFIED
[2022-02-20] MEDS: Ms Contin 15 MG PO SCH ×2 (10:51→22:39)
[2022-02-20] MEDS: Lopressor 25MG Tab PO SCH ×2 (10:52→22:39)
[2022-02-20] MEDS: ZOLOFT 50 MG TABLET PO SCH (10:52)
[2022-02-20] MEDS: Protonix 40MG Tablet PO SCH ×2 (10:52→22:40)
[2022-02-20] MEDS: Pepcid 20 MG VIAL IV SCH ×2 (10:53→22:39)
[2022-02-20] MEDS: CLONIDINE 0.1 MG TABLET PO SCH ×3 (11:55→22:39)
[2022-02-20] MEDS: Cordarone 200 MG PO SCH (11:55)
[2022-02-20] MEDS: ELIQUIS 2.5 MG TABLET PO SCH ×2 (11:55→22:39)
[2022-02-20] MEDS: Cardizem CD PO SCH (11:55)
[2022-02-20] MEDS: TIMOPTIC 0.5% 5 ML OPHTHALMIC OP SCH ×2 (11:56→22:40)
[2022-02-20] MEDS ORDERED: CLONIDINE HCL 0.2 MG PO SCH (15:00)
[2022-02-20] MEDS: Sodium Chloride 0.9% 1000 ML 1,000 ML IV SCH (16:13)
[2022-02-20] MEDS: NORCO 7.5/325 MG TAB PO PRN (20:28)
[2022-02-20] MEDS ORDERED: [UNRECOGNIZED DRUG - OTHER] OP SCH (22:00)
[2022-02-20] MEDS ORDERED: NON-FORMULARY ITEM (Apixaban*** [Eliquis 5 Mg Tablet***] 5 MG Tablet) PO SCH (22:00)
[2022-02-20] MEDS: zyPREXA 5MG TABLET PO SCH (22:39)
[2022-02-20] MEDS: Flomax 0.4 MG PO SCH (22:40)
[2022-02-20] MEDS: ROCEPHIN 1 Gm-D5w 50 ml Bag** 1 G/50 ML IVPB IV SCH (22:54)
[2022-02-21] MEDS: Sodium Chloride 0.9% 1000 ML 1,000 ML IV SCH ×2 (05:38→18:52)
[2022-02-21 06:23] LABS: Absolute Neutrophil Ct (ANC) 4.91 x10^3/uL (1.4-6.9); Basophil (Absolute #) 0.02 x10^3/uL (0-0.4); Eosinophil % 8.9 % (0.00-5.0); Eosinophil (Absolute #) 0.69 x10^3/uL (0-0.5); Hematocrit 32.7 % (42-50); Hemoglobin 10.5 g/dL (12.5-18.0); Lymphocyte (Absolute #) 1.12 x10^3/uL (1.0-4.6); Lymphocytes % 14.5 % (24.0-44.0); Mean Cell Volume 99.4 fL (78-100); Mean Corpuscular Hemoglobin 31.9 pg (26-32); Mean Corpuscular Hgb Concent. 32.1 g/dL (32-36); Mean Platelet Volume 9.4 fL (7.5-11.0); Monocyte (Absolute #) 0.94 x10^3/uL (0.0-1.3); Monocytes % 12.2 % (0.0-12.0); Neutrophil % 63.7 % (36.0-66.0); Platelet Count 152 x10^3/uL (150-450); Red Blood Count 3.29 x10^6/uL (4.1-5.6); Red Cell Distribution Width 13.2 % (11.5-14.0); White Blood Count 7.7 x10^3/uL (4.0-10.5)
[2022-02-21 06:30] LABS: ALBUMIN 2.6 g/dL (3.5-5.0); ALKALINE PHOSPHATASE 70 U/L (38-126); ANION GAP 7.2 MEQ/L (5-15); BLOOD UREA NITROGEN 19 mg/dL (9-20); CHLORIDE 105 mmol/L (98-107); Calcium 8.1 mg/dL (8.4-10.2); Carbon Dioxide 31 mmol/L (22-30); Creatinine 1 0.86 mg/dL (0.66-1.25); EST GLOMERULAR FILTRATION RATE > 60.0 ML/MIN; Glucose 108 mg/dL (74-106); Potassium 3.3 mmol/L (3.5-5.1); SGOT/AST 21 U/L (17-59); SGPT/ALT 14 U/L (0-50); SODIUM 140 mmol/L (137-145); Total Protein 5.3 g/dL (6.3-8.2)
--- NOTE | 2022-02-21 08:11 | PCM.NOTE ---
Date and Time: 02/21/22 0810 Subjective Assessment: doing better - Review of Systems Constitutional: No Fever, No Chills Eyes: No Symptoms Ears, Nose, & Throat: No Symptoms Respiratory: No Cough, No Short Of Breath Cardiac: No Chest Pain, No Edema, No Syncope Abdominal/Gastrointestinal: No Abdominal Pain, No Nausea, No Vomiting, No Diarrhea Genitourinary Symptoms: No Dysuria Musculoskeletal: No Back Pain, No Neck Pain Skin: No Rash Neurological: No Dizziness, No Focal Weakness, No Sensory Changes Psychological: No Symptoms Endocrine: No Symptoms Hematologic/Lymphatic: No Symptoms Immunological/Allergic: No Symptoms Objective Exam General Appearance: no apparent distress, alert Neurologic Exam: alert, oriented x 3, cooperative, normal mood/affect, nml cerebellar function, sensation nml, No motor deficits Skin Exam: normal color, warm, dry Eye Exam: PERRL, EOMI, eyes nml inspection Ears, Nose, Throat Exam: normal ENT inspection, pharynx normal, moist mucous membranes Neck Exam: normal inspection, non-tender, supple, full range of motion Respiratory Exam: normal breath sounds, lungs clear, No respiratory distress Cardiovascular Exam: regular rate/rhythm, normal heart sounds Gastrointestinal/Abdomen Exam: soft, No tenderness, No mass Extremity Exam: normal inspection, normal range of motion Back Exam: normal inspection, normal range of motion, No CVA tenderness, No vertebral tenderness Male Genitalia Exam: deferred Rectal Exam: deferred OBJECTIVE DATA Vital Signs: Vital Signs - 24 hr Temp Pulse Resp BP Pulse Ox 02/21/22 07:24 97.5 F 49 L 24 172/72 94 L 02/21/22 03:58 98.6 F 50 L 20 161/77 96 02/21/22 00:00 99.1 F 55 L 16 171/72 96 02/20/22 20:09 93 L 02/20/22 20:00 98.7 F 55 L 14 119/56 94 L 02/20/22 16:00 99.1 F 56 L 17 116/55 90 L 02/20/22 12:00 100.0 F 84 15 153/68 90 L Pain Assessment - Last Documented Pain Intensity 0 Pain Scale Used 0-10 Pain Scale Intake and Output: Intake & Output 02/18/22 02/19/22 02/20/22 02/21/22 11:59 11:59 11:59 11:59 Intake Total 0 2078 Output Total 750 7410 Balance -750 -822 Weight 80.4 kg Lab Results: Lab Results-Last 24 Hours 02/21/22 02/21/22 Range/Units 05:56 05:56 WBC 7.7 (4.0-10.5) x10^3/uL RBC 3.29 L (4.1-5.6) x10^6/uL Hgb 10.5 L (12.5-18.0) g/dL Hct 32.7 L (42-50) % MCV 99.4 (78-100) fL MCH 31.9 (26-32) pg MCHC 32.1 (32-36) g/dL RDW 13.2 (11.5-14.0) % Plt Count 152 (150-450) x10^3/uL MPV 9.4 (7.5-11.0) fL Gran % 63.7 (36.0-66.0) % Immature Gran % (Auto) 0.4 (0.00-0.4) % Nucleat RBC Rel Count 0.0 (0.00-0.1) % Eos # (Auto) 0.69 H (0-0.5) x10^3/uL Immature Gran # (Auto) 0.03 (0.00-0.03) x10^3u/L Absolute Lymphs (auto) 1.12 (1.0-4.6) x10^3/uL Absolute Monos (auto) 0.94 (0.0-1.3) x10^3/uL Absolute Nucleated RBC 0.00 (0.00-0.01) x10^3u/L Lymphocytes % 14.5 L (24.0-44.0) % Monocytes % 12.2 H (0.0-12.0) % Eosinophils % 8.9 H (0.00-5.0) % Basophils % 0.3 (0.0-0.4) % Absolute Granulocytes 4.91 (1.4-6.9) x10^3/uL Basophils # 0.02 (0-0.4) x10^3/uL Sodium 140 D (137-145) mmol/L Potassium 3.3 L (3.5-5.1) mmol/L Chloride 105 (98-107) mmol/L Carbon Dioxide 31 H (22-30) mmol/L Anion Gap 7.2 (5-15) MEQ/L BUN 19 (9-20) mg/dL Creatinine 0.86 (0.66-1.25) mg/dL Estimated GFR > 60.0 ML/MIN Glucose 108 H (74-106) mg/dL Calcium 8.1 L (8.4-10.2) mg/dL Total Bilirubin 0.70 (0.2-1.3) mg/dL AST 21 (17-59) U/L ALT 14 (0-50) U/L Alkaline Phosphatase 70 (38-126) U/L Serum Total Protein 5.3 L (6.3-8.2) g/dL Albumin 2.6 L (3.5-5.0) g/dL Multi-Disciplinary Progress Notes: Multi-Disciplinary Progress Notes 02/20/22 12:35 Case Management Note by Keesha Pinedo Addendum entered by Keesha Pinedo 02/20/22 12:38: NOTE PLACED ON CHART FOR WEEKEND USE Original Note: CALLED [facility] TO CLARIFY WHAT PATIENT'S HOME OXYGEN ORDERS ARE. PATIENT HAS 24/7 OXYGEN ALREADY ORDERED THRU [facility] AT 4L. REPORTS HE HAS ONLY BEEN REQUIRING IT AT NIGHT AND HAS BEEN WEARING 2L AT NIGHT. IF PATIENT NEEDS 24/7 OXYGEN AGAIN AT MT STAFF CAN SEND HOME LINCARE PORTABLE TANK FROM [facility] TO TIME OF MT. PATIENT ALREADY HAS CONCENTRATOR AT HOME Initialized on 02/20/22 12:35 - END OF NOTE Assessment/Plan (1) Urinary retention Current Visit: Yes Status: Acute Assessment & Plan: Chief Complaint Diagnosis Dehydration, MATIAS, UTI Allergies Allergy/AdvReac Type Severity Reaction Status Date / Time No Known Allergies Allergy Verified 02/20/22 03:09 Vital Signs (Last 24 hours) Temp Pulse Resp BP Pulse Ox 02/21/22 07:24 97.5 F 49 L 24 172/72 94 L 02/21/22 03:58 98.6 F 50 L 20 161/77 96 02/21/22 00:00 99.1 F 55 L 16 171/72 96 02/20/22 20:09 93 L 02/20/22 20:00 98.7 F 55 L 14 119/56 94 L 02/20/22 16:00 99.1 F 56 L 17 116/55 90 L 02/20/22 12:00 100.0 F 84 15 153/68 90 L Home Medications Medication Instructions Recorded Confirmed Last Taken Type Amiodarone HCl 50 mg PO DAILY 02/20/22 02/20/22 02/19/22 History Apixaban [Eliquis 5 mg 2.5 mg PO BID 02/20/22 02/20/22 02/16/22 History Tablet] Diltiazem HCl [Diltiazem ER] 120 mg PO DAILY 02/20/22 02/20/22 02/19/22 History Ferrous Sulfate 325 mg PO BID 02/20/22 02/20/22 02/18/22 History Furosemide 40 mg [Lasix 40 40 mg PO BID 02/20/22 02/20/22 02/19/22 History MG] Metoprolol Tartrate 25 mg 75 mg PO BID 02/20/22 02/20/22 02/19/22 History [Lopressor 25MG Tab] Multivitamin [Multi-Vitamin Daily] 1 each PO DAILY 02/20/22 02/20/22 02/19/22 History Olanzapine 5 mg [zyPREXA 5MG 5 mg PO HS 02/20/22 02/20/22 02/19/22 History TABLET] Tamsulosin HCl 0.4 mg [Flomax 0.4 mg PO HS 02/20/22 02/20/22 02/19/22 History 0.4 MG] Timolol Maleate/Pf [Timolol 1 each OP BID 02/20/22 02/20/22 02/19/22 History Maleate 0.5% Eye Drop] cloNIDine HCL [Clonidine HCl] 0.2 mg PO TID 02/20/22 02/20/22 02/19/22 History Current Medications Generic Name Dose Route Start Last Admin Trade Name Freq PRN Reason Stop Dose Admin Hydrocodone Bitart/Acetaminophen 1 tab 02/20/22 10:34 02/20/22 20:28 Hydrocodone /Apap 7.5/325 Mg 1 Each Tablet PO 02/25/22 10:33 1 tab Q4H PRN PRN Administration PAIN Amiodarone HCl 50 mg 02/20/22 12:00 02/20/22 11:55 Amiodarone Hcl 200 Mg Tab PO 03/22/22 11:59 50 mg DAILY FERNANDO Administration Apixaban 2.5 mg 02/20/22 12:00 02/20/22 22:39 Apixaban 2.5 Mg Tablet PO 03/22/22 11:59 2.5 mg BID FERNANDO Administration Clonidine 0.2 mg 02/20/22 12:00 02/20/22 22:39 Clonidine Hcl 0.1 Mg Tablet PO 03/22/22 11:59 0.2 mg TID FERNANDO Administration Diltiazem HCl 120 mg 02/20/22 12:00 02/20/22 11:55 Diltiazem Hcl Cd 120 Mg Cap.Sr.24h PO 03/22/22 11:59 120 mg DAILY FERNANDO Administration Famotidine 20 mg 02/20/22 10:00 02/20/22 22:39 Famotidine 20 Mg/1 Vial IV 03/22/22 09:59 20 mg Q12HT FERNANDO Administration Sodium Chloride 1,000 mls @ 75 mls/hr 02/20/22 06:22 02/21/22 05:38 Sodium Chloride 0.9% 1000 Ml IV 03/22/22 06:21 75 mls/hr .[id number] FERNANDO Administration Ceftriaxone Sodium/Dextrose 1 g in 50 mls @ 100 mls/hr 02/20/22 22:00 02/20/22 22:54 Rocephin 1 Gm-D5w 50 Ml Bag IV 02/23/22 21:59 100 mls/hr Q24H22 FERNANDO Administration Metoprolol Tartrate 75 mg 02/20/22 11:00 02/20/22 22:39 Metoprolol Tartrate 25 Mg Tab PO 03/22/22 10:59 75 mg BID FERNANDO Administration Morphine Sulfate 15 mg 02/20/22 22:00 02/20/22 22:39 Morphine Sulfate 15 Mg Tablet.Sa PO 02/25/22 21:59 15 mg HS FERNANDO Administration Morphine Sulfate 30 mg 02/20/22 11:00 02/20/22 10:51 Morphine Sulfate 15 Mg Tablet.Sa PO 02/25/22 10:59 30 mg DAILY FERNANDO Administration Olanzapine 5 mg 02/20/22 22:00 02/20/22 22:39 Olanzapine 5 Mg Tab PO 03/22/22 21:59 5 mg HS FERNANDO Administration Pantoprazole Sodium 40 mg 02/20/22 11:00 02/20/22 22:40 Protonix (Pantoprazole) 40 Mg Tablet PO 03/22/22 10:59 40 mg BID FERNANDO Administration Sertraline HCl 100 mg 02/20/22 11:00 02/20/22 10:52 Sertraline Hcl 50 Mg Tab PO 03/22/22 10:59 100 mg DAILY FERNANDO Administration Tamsulosin HCl 0.4 mg 02/20/22 22:00 02/20/22 22:40 Tamsulosin Hcl 0.4 Mg Cap PO 03/22/22 21:59 0.4 mg HS FERNANDO Administration Timolol Maleate 0 ml 02/20/22 12:00 02/20/22 22:40 Timolol Maleate 0.5% 5 Ml Eye Drops OP 03/22/22 11:59 5 ml BID FERNANDO Administration Discontinued Medications Generic Name Dose Route Start Last Admin Trade Name Freq PRN Reason Stop Dose Admin Ceftriaxone Sodium/Dextrose 1 g in 50 mls @ 100 mls/hr 02/20/22 04:34 02/20/22 04:45 Rocephin 1 Gm-D5w 50 Ml Bag IV 02/20/22 05:03 100 mls/hr STAT STA 100 mls/hr Administration Sodium Chloride 1,000 mls @ 100 mls/hr 02/20/22 04:45 02/20/22 04:44 Sodium Chloride 0.9% 1000 Ml IV 03/22/22 04:44 100 mls/hr .Q10H FERNANDO Administration Ceftriaxone Sodium/Dextrose Confirm 02/20/22 04:44 Rocephin 1 Gm-D5w 50 Ml Bag Administered 02/20/22 04:45 Dose 1 g in 50 mls @ ud IV .STK-MED ONE Sodium Chloride Confirm 02/20/22 04:44 Sodium Chloride 0.9% 1000 Ml Administered 02/20/22 04:45 Dose 1,000 mls @ ud .ROUTE .STK-MED ONE Intake & Output (Last 24 hours) 02/18/22 02/19/22 02/20/22 02/21/22 11:59 11:59 11:59 11:59 Intake Total 0 2078 Output Total 750 2900 Balance -750 -822 Weight 80.4 kg Microbiology Results (Last 24 hours) 02/20/22 03:40 Urine, Catheterized Urine Culture - Pending Laboratory Results (Last 24 hours) 02/21/22 02/21/22 05:56 05:56 WBC 7.7 RBC 3.29 L Hgb 10.5 L Hct 32.7 L MCV 99.4 MCH 31.9 MCHC 32.1 RDW 13.2 Plt Count 152 MPV 9.4 Gran % 63.7 Immature Gran % (Auto) 0.4 Nucleat RBC Rel Count 0.0 Eos # (Auto) 0.69 H Immature Gran # (Auto) 0.03 Absolute Lymphs (auto) 1.12 Absolute Monos (auto) 0.94 Absolute Nucleated RBC 0.00 Lymphocytes % 14.5 L Monocytes % 12.2 H Eosinophils % 8.9 H Basophils % 0.3 Absolute Granulocytes 4.91 Basophils # 0.02 Sodium 140 D Potassium 3.3 L Chloride 105 Carbon Dioxide 31 H Anion Gap 7.2 BUN 19 Creatinine 0.86 Estimated GFR > 60.0 Glucose 108 H Calcium 8.1 L Total Bilirubin 0.70 AST 21 ALT 14 Alkaline Phosphatase 70 Serum Total Protein 5.3 L Albumin 2.6 L Orders (Last 24 hours) Category Date Time Status CBC W DIFF AM.LAB Lab 02/21/22 05:56 Completed CMP AM.LAB Lab 02/21/22 05:56 Completed Amiodarone HCl 200 mg [Cordarone 200 MG] Med 02/20/22 12:00 Active 50 mg PO DAILY Apixaban [Eliquis 2.5 mg Tablet] Med 02/20/22 12:00 Active 2.5 mg PO BID Ceftriaxone 1 GM/50 ML PREMIX* [ROCEPHIN 1 Gm-D5w 50 ml Med 02/20/22 22:00 Active Bag] 1 g in 50 ml IV Q24H22 Clonidine HCl 0.1 mg [Clonidine 0.1 mg Tablet] Med 02/20/22 12:00 Active 0.2 mg PO TID Diltiazem HCl Cd [Cardizem CD ] Med 02/20/22 12:00 Active 120 mg PO DAILY Famotidine 20 mg Vial [Pepcid 20 MG VIAL] Med 02/20/22 10:00 Active 20 mg IV Q12HT Hydrocodone /APAP 7.5/325 mg [Hornitos 7.5/325 mg Tab Med 02/20/22 10:34 Active ] 1 tab PO Q4H PRN PRN Metoprolol Tartrate 25 mg [Lopressor 25MG Tab] Med 02/20/22 11:00 Active 75 mg PO BID Morphine Sulfate Cr 15 mg [Ms Contin 15 MG] Med 02/20/22 22:00 Active 15 mg PO HS Morphine Sulfate Cr 15 mg [Ms Contin 15 MG] Med 02/20/22 11:00 Active 30 mg PO DAILY Olanzapine 5 mg [zyPREXA 5MG TABLET] Med 02/20/22 22:00 Active 5 mg PO HS PANTOPRAZOLE 40 mg Tablet [Protonix 40MG Tablet] Med 02/20/22 11:00 Active 40 mg PO BID Sertraline HCl 50 mg [Zoloft 50 mg Tablet] Med 02/20/22 11:00 Active 100 mg PO DAILY Tamsulosin HCl 0.4 mg [Flomax 0.4 MG] Med 02/20/22 22:00 Active 0.4 mg PO HS Timolol Maleate 0.5% Eye [Timoptic 0.5% 5 ml Med 02/20/22 12:00 Active Ophthalmic] See Dose Instructions OP BID Oxygen Nasal Cannula 2 lpm RT 02/20/22 20:09 Active Pulse Oximetry .spot check RT 02/20/22 20:09 Active Patient Care Notes (Last 24 hours) 02/20/22 12:35 Case Management Note by Keesha Pinedo Addendum entered by Keesha Pinedo 02/20/22 12:38: NOTE PLACED ON CHART FOR WEEKEND USE Original Note: CALLED [facility] TO CLARIFY WHAT PATIENT'S HOME OXYGEN ORDERS ARE. PATIENT HAS 24/7 OXYGEN ALREADY ORDERED THRU [facility] AT 4L. REPORTS HE HAS ONLY BEEN REQUIRING IT AT NIGHT AND HAS BEEN WEARING 2L AT NIGHT. IF PATIENT NEEDS 24/7 OXYGEN AGAIN AT DC STAFF CAN SEND HOME [facility] PORTABLE TANK FROM [facility] TO TIME OF DC. PATIENT ALREADY HAS CONCENTRATOR AT HOME Initialized on 02/20/22 12:35 - END OF NOTE Code(s): R33.9 - RETENTION OF URINE, UNSPECIFIED (2) Acute renal injury Current Visit: Yes Status: Acute Code(s): N17.9 - ACUTE KIDNEY FAILURE, UNSPECIFIED
[2022-02-21] MEDS ORDERED: NON-FORMULARY ITEM (Diltiazem Hcl [Diltiazem 24hr Er] 120 MG Cap.Sa.24h) PO SCH (10:00)
[2022-02-21] MEDS ORDERED: NON-FORMULARY ITEM (Amiodarone Hcl [Amiodarone Hcl] 100 MG Tablet) PO SCH (10:00)
[2022-02-21] MEDS ORDERED: NON-FORMULARY ITEM (Morphine Sulfate Cr 30 Mg*** 30 MG Tablet.Sa) PO SCH (10:00)
[2022-02-21] MEDS: ZOLOFT 50 MG TABLET PO SCH (10:57)
[2022-02-21] MEDS: Pepcid 20 MG VIAL IV SCH ×2 (10:57→21:37)
[2022-02-21] MEDS: CLONIDINE 0.1 MG TABLET PO SCH ×3 (10:57→21:37)
[2022-02-21] MEDS: Cardizem CD PO SCH (10:58)
[2022-02-21] MEDS: Lopressor 25MG Tab PO SCH ×2 (10:58→21:37)
[2022-02-21] MEDS: Ms Contin 15 MG PO SCH ×2 (10:58→21:37)
[2022-02-21] MEDS: Cordarone 200 MG PO SCH (10:58)
[2022-02-21] MEDS: Protonix 40MG Tablet PO SCH ×2 (10:59→21:38)
[2022-02-21] MEDS: TIMOPTIC 0.5% 5 ML OPHTHALMIC OP SCH ×2 (10:59→21:38)
[2022-02-21] MEDS: ELIQUIS 2.5 MG TABLET PO SCH ×2 (11:07→21:38)
[2022-02-21] MEDS: ROCEPHIN 1 Gm-D5w 50 ml Bag** 1 G/50 ML IVPB IV SCH (21:37)
[2022-02-21] MEDS: Flomax 0.4 MG PO SCH (21:37)
[2022-02-21] MEDS: zyPREXA 5MG TABLET PO SCH (21:37)
[2022-02-22 07:06] VITALS: BP 130/80; PULSE 46; O2SAT 95
--- NOTE | 2022-02-22 07:12 | PCM.NOTE ---
Date and Time: 02/22/22710 Subjective Assessment: doing ok - Review of Systems Constitutional: No Fever, No Chills Eyes: No Symptoms Ears, Nose, & Throat: No Symptoms Respiratory: No Cough, No Short Of Breath Cardiac: No Chest Pain, No Edema, No Syncope Abdominal/Gastrointestinal: No Abdominal Pain, No Nausea, No Vomiting, No Diarrhea Genitourinary Symptoms: No Dysuria Musculoskeletal: No Back Pain, No Neck Pain Skin: No Rash Neurological: No Dizziness, No Focal Weakness, No Sensory Changes Psychological: No Symptoms Endocrine: No Symptoms Hematologic/Lymphatic: No Symptoms Immunological/Allergic: No Symptoms Objective Exam General Appearance: no apparent distress, alert Neurologic Exam: alert, oriented x 3, cooperative, normal mood/affect, nml cerebellar function, sensation nml, No motor deficits Skin Exam: normal color, warm, dry Eye Exam: PERRL, EOMI, eyes nml inspection Ears, Nose, Throat Exam: normal ENT inspection, pharynx normal, moist mucous membranes Neck Exam: normal inspection, non-tender, supple, full range of motion Respiratory Exam: normal breath sounds, lungs clear, No respiratory distress Cardiovascular Exam: regular rate/rhythm, normal heart sounds Gastrointestinal/Abdomen Exam: soft, No tenderness, No mass Extremity Exam: normal inspection, normal range of motion Back Exam: normal inspection, normal range of motion, No CVA tenderness, No vertebral tenderness Male Genitalia Exam: deferred Rectal Exam: deferred OBJECTIVE DATA Vital Signs: Vital Signs - 24 hr Temp Pulse Resp BP Pulse Ox 02/22/22 07:05 97.9 F 46 L 17 130/80 95 02/22/22 04:00 98.0 F 51 L 18 197/84 98 02/22/22 00:00 54 L 12 02/21/22 20:00 97.6 F 61 17 177/77 95 02/21/22 19:12 96 02/21/22 16:00 98.6 F 91 H 20 182/80 95 02/21/22 11:44 97.7 F 70 19 160/82 93 L 02/21/22 09:01 96 02/21/22 07:24 97.5 F 49 L 24 172/72 94 L Pain Assessment - Last Documented Pain Intensity 0 Pain Scale Used 0-10 Pain Scale Intake and Output: Intake & Output 02/19/22 02/20/22 02/21/22 02/22/22 11:59 11:59 11:59 11:59 Intake Total 0 2318 3007 Output Total 750 9516 6985 Balance -708 -483 -462 Weight 80.4 kg Assessment/Plan (1) Urinary retention Current Visit: Yes Status: Resolved Code(s): R33.9 - RETENTION OF URINE, UNSPECIFIED (2) Acute renal injury Current Visit: Yes Status: Acute Code(s): N17.9 - ACUTE KIDNEY FAILURE, UNSPECIFIED
[2022-02-22] MEDS: NORCO 7.5/325 MG TAB PO PRN (08:00)
--- NOTE | 2022-02-22 08:18 | PCM.DS ---
Discharge Summary Date of Admission: 02/20/22 06:13 Admitting Physician: MANJIT MALDONADO Primary Care Provider: MANJIT MALDONADO Allergies Allergies No Known Allergies Allergy (Verified 02/20/22 03:09) Hospital Summary - Hospital Course Hospital Course: Chief Complaint Diagnosis Dehydration, MATIAS, UTI Allergies Allergy/AdvReac Type Severity Reaction Status Date / Time No Known Allergies Allergy Verified 02/20/22 03:09 Vital Signs (Last 24 hours) Temp Pulse Resp BP Pulse Ox 02/22/22 07:05 97.9 F 46 L 17 130/80 95 02/22/22 04:00 98.0 F 51 L 18 197/84 98 02/22/22 00:00 54 L 12 02/21/22 20:00 97.6 F 61 17 177/77 95 02/21/22 19:12 96 02/21/22 16:00 98.6 F 91 H 20 182/80 95 02/21/22 11:44 97.7 F 70 19 160/82 93 L 02/21/22 09:01 96 Home Medications Medication Instructions Recorded Confirmed Last Taken Type Amiodarone HCl 50 mg PO DAILY 02/20/22 02/20/22 02/19/22 History Apixaban [Eliquis 5 mg 2.5 mg PO BID 02/20/22 02/20/22 02/16/22 History Tablet] Diltiazem HCl [Diltiazem 24Hr ER] 120 mg PO DAILY 02/20/22 02/20/22 02/19/22 History Ferrous Sulfate 325 mg PO BID 02/20/22 02/20/22 02/18/22 History Furosemide 40 mg [Lasix 40 40 mg PO BID 02/20/22 02/20/22 02/19/22 History MG] Metoprolol Tartrate 25 mg 75 mg PO BID 02/20/22 02/20/22 02/19/22 History [Lopressor 25MG Tab] Multivitamin [Multi-Vitamin Daily] 1 each PO DAILY 02/20/22 02/20/22 02/19/22 History Olanzapine 5 mg [zyPREXA 5MG 5 mg PO HS 02/20/22 02/20/22 02/19/22 History TABLET] Tamsulosin HCl 0.4 mg [Flomax 0.4 mg PO HS 02/20/22 02/20/22 02/19/22 History 0.4 MG] Timolol Maleate/Pf [Timolol 1 each OP BID 02/20/22 02/20/22 02/19/22 History Maleate 0.5% Eye Drop] cloNIDine HCL [Clonidine HCl] 0.2 mg PO TID 02/20/22 02/20/22 02/19/22 History cephALEXin 500 mg PO QID 5 Days #20 cap 02/22/22 Unknown Rx Current Medications Generic Name Dose Route Start Last Admin Trade Name Freq PRN Reason Stop Dose Admin Hydrocodone Bitart/Acetaminophen 1 tab 02/20/22 10:34 02/22/22 08:00 Hydrocodone /Apap 7.5/325 Mg 1 Each Tablet PO 02/25/22 10:33 1 tab Q4H PRN PRN Administration PAIN Amiodarone HCl 50 mg 02/20/22 12:00 02/21/22 10:58 Amiodarone Hcl 200 Mg Tab PO 03/22/22 11:59 50 mg DAILY FERNANOD Administration Apixaban 2.5 mg 02/20/22 12:00 02/21/22 21:38 Apixaban 2.5 Mg Tablet PO 03/22/22 11:59 2.5 mg BID FERNANDO Administration Clonidine 0.2 mg 02/20/22 12:00 02/21/22 21:37 Clonidine Hcl 0.1 Mg Tablet PO 03/22/22 11:59 0.2 mg TID FERNANDO Administration Diltiazem HCl 120 mg 02/20/22 12:00 02/21/22 10:58 Diltiazem Hcl Cd 120 Mg Cap.Sr.24h PO 03/22/22 11:59 120 mg DAILY FERNANDO Administration Famotidine 20 mg 02/20/22 10:00 02/21/22 21:37 Famotidine 20 Mg/1 Vial IV 03/22/22 09:59 20 mg Q12HT FERNANDO Administration Sodium Chloride 1,000 mls @ 75 mls/hr 02/20/22 06:22 02/21/22 18:52 Sodium Chloride 0.9% 1000 Ml IV 03/22/22 06:21 75 mls/hr .[id number] FERNANDO Administration Ceftriaxone Sodium/Dextrose 1 g in 50 mls @ 100 mls/hr 02/20/22 22:00 02/21/22 21:37 Rocephin 1 Gm-D5w 50 Ml Bag IV 02/23/22 21:59 100 mls/hr Q24H22 FERNANDO Administration Metoprolol Tartrate 75 mg 02/20/22 11:00 02/21/22 21:37 Metoprolol Tartrate 25 Mg Tab PO 03/22/22 10:59 75 mg BID FERNANDO Administration Morphine Sulfate 15 mg 02/20/22 22:00 02/21/22 21:37 Morphine Sulfate 15 Mg Tablet.Sa PO 02/25/22 21:59 15 mg HS FERNANDO Administration Morphine Sulfate 30 mg 02/20/22 11:00 02/21/22 10:58 Morphine Sulfate 15 Mg Tablet.Sa PO 02/25/22 10:59 30 mg DAILY FERNANDO Administration Olanzapine 5 mg 02/20/22 22:00 02/21/22 21:37 Olanzapine 5 Mg Tab PO 03/22/22 21:59 5 mg HS FERNANDO Administration Pantoprazole Sodium 40 mg 02/20/22 11:00 02/21/22 21:38 Protonix (Pantoprazole) 40 Mg Tablet PO 03/22/22 10:59 40 mg BID FERNNADO Administration Sertraline HCl 100 mg 02/20/22 11:00 02/21/22 10:57 Sertraline Hcl 50 Mg Tab PO 03/22/22 10:59 100 mg DAILY FERNANDO Administration Tamsulosin HCl 0.4 mg 02/20/22 22:00 02/21/22 21:37 Tamsulosin Hcl 0.4 Mg Cap PO 03/22/22 21:59 0.4 mg HS FERNANDO Administration Timolol Maleate 0 ml 02/20/22 12:00 02/21/22 21:38 Timolol Maleate 0.5% 5 Ml Eye Drops OP 03/22/22 11:59 1 ml BID FERNANDO Administration Discontinued Medications Generic Name Dose Route Start Last Admin Trade Name Freq PRN Reason Stop Dose Admin Ceftriaxone Sodium/Dextrose 1 g in 50 mls @ 100 mls/hr 02/20/22 04:34 02/20/22 04:45 Rocephin 1 Gm-D5w 50 Ml Bag IV 02/20/22 05:03 100 mls/hr STAT STA 100 mls/hr Administration Sodium Chloride 1,000 mls @ 100 mls/hr 02/20/22 04:45 02/20/22 04:44 Sodium Chloride 0.9% 1000 Ml IV 03/22/22 04:44 100 mls/hr .Q10H FERNANDO Administration Ceftriaxone Sodium/Dextrose Confirm 02/20/22 04:44 Rocephin 1 Gm-D5w 50 Ml Bag Administered 02/20/22 04:45 Dose 1 g in 50 mls @ ud IV .STK-MED ONE Sodium Chloride Confirm 02/20/22 04:44 Sodium Chloride 0.9% 1000 Ml Administered 02/20/22 04:45 Dose 1,000 mls @ ud .ROUTE .STK-MED ONE Intake & Output (Last 24 hours) 02/19/22 02/20/22 02/21/22 02/22/22 11:59 11:59 11:59 11:59 Intake Total 0 2318 3007 Output Total 750 3300 3550 Balance -750 982 -501 Weight 80.4 kg Microbiology Results (Last 24 hours) 02/20/22 03:40 Urine, Catheterized Urine Culture - Final NO GROWTH Orders (Last 24 hours) Category Date Time Status Discharge Routine Discharge 02/22/22 Ordered Will discharge patient home with the indwelling catheter. Patient is advised to call Dr. Soriano's office tomorrow and get an appointment and let them decide what to do about the indwelling catheter. Nurses also given instruction and she is advised that tomorrow one of the secretaries should call Dr. Campos's office and inform them about this patient admission during weekend and let them know that we sent him home with indwelling catheter and he will call your office for appointment. - Vitals & Intake/Output Vital Signs: Vital Signs Temperature 97.9 F 02/22/22 07:05 Pulse Rate 46 L 02/22/22 07:05 Respiratory Rate 17 02/22/22 07:05 Blood Pressure 130/80 02/22/22 07:05 O2 Sat by Pulse Oximetry 95 02/22/22 07:05 Intake & Output: Intake & Output 02/19/22 02/20/22 02/21/22 02/22/22 11:59 11:59 11:59 11:59 Intake Total 0 2318 3007 Output Total 750 3300 3550 Balance -750 982 543 Weight 80.4 kg - Lab Result Diagrams: 02/21/22 05:56 02/21/22 05:56 Micro Results-Entire Visit: Microbiology 02/20/22 03:40 Urine Culture - Final Urine, Catheterized NO GROWTH - Procedures and Test Procedures and Tests throughout Hospitalization: Therapy Orders & Screens 02/20/22 20:09 Oxygen Nasal Cannula 2 lpm Comment: Diagnosis: Dehydration, MATIAS, UTI Discharge Exam General Appearance: no apparent distress, alert Neurologic Exam: alert, oriented x 3, cooperative, normal mood/affect, nml cerebellar function, sensation nml, No motor deficits Eye Exam: PERRL, EOMI, eyes nml inspection Ears, Nose, Throat Exam: normal ENT inspection, pharynx normal, moist mucous membranes Neck Exam: normal inspection, non-tender, supple, full range of motion Respiratory Exam: normal breath sounds, lungs clear, No respiratory distress Cardiovascular Exam: regular rate/rhythm, normal heart sounds Gastrointestinal/Abdomen Exam: soft, No tenderness, No mass Male Genitalia Exam: deferred Rectal Exam: deferred Back Exam: normal inspection, normal range of motion, No CVA tenderness, No vertebral tenderness Extremity Exam: normal inspection, normal range of motion Skin Exam: normal color, warm, dry Final Diagnosis/Problem List - Final Discharge Diagnosis/Problem (1) Urinary retention Current Visit: Yes Status: Resolved Assessment & Plan: Code(s): R33.9 - RETENTION OF URINE, UNSPECIFIED (2) Acute renal injury Current Visit: Yes Status: Resolved Code(s): N17.9 - ACUTE KIDNEY FAILURE, UNSPECIFIED - Discharge Discharge Date: 02/22/22 Disposition: Home, Self-Care Condition: Stable Prescriptions: New cephALEXin 500 mg PO QID 5 Days #20 cap Continue Sertraline HCl 100 mg PO DAILY PANTOPRAZOLE 40 mg Tablet [Protonix 40MG Tablet] 40 mg PO BID Morphine Sulfate Cr 15 mg [Ms Contin 15 MG] 15 mg PO HS Morphine Sulfate Cr 30 mg [Ms Contin 30 mg] 30 mg PO DAILY Hydrocodone/Acetaminophen [Hydrocodone-Acetamin 7.5-325] 1 tab PO Q4H PRN PRN PRN Reason: Pain Potassium Chloride Tab* [Klor Con] 10 meq PO DAILY #30 tab Ciprofloxacin [Cipro 500 MG] 500 mg PO BID #14 tablet Multivitamin [Multi-Vitamin Daily] 1 each PO DAILY Ferrous Sulfate 325 mg PO BID Olanzapine 5 mg [zyPREXA 5MG TABLET] 5 mg PO HS Tamsulosin HCl 0.4 mg [Flomax 0.4 MG] 0.4 mg PO HS Amiodarone HCl 50 mg PO DAILY Diltiazem HCl [Diltiazem 24Hr ER] 120 mg PO DAILY Metoprolol Tartrate 25 mg [Lopressor 25MG Tab] 75 mg PO BID cloNIDine HCL [Clonidine HCl] 0.2 mg PO TID Apixaban [Eliquis 5 mg Tablet] 2.5 mg PO BID Furosemide 40 mg [Lasix 40 MG] 40 mg PO BID Timolol Maleate/Pf [Timolol Maleate 0.5% Eye Drop] 1 each OP BID Instructions: How to Care for Your Anderson Catheter, Male, Anderson Catheter, Urinary Retention (DC) Additional Instructions: MAKE SURE YOU CALL DR. RAMEY OFFICE IN THE MORNING TO SET UP A FOLLOW APPOINTMENT. Follow up with: MANJIT MALDONADO MD [Primary Care Provider] - Forms: Discharge Instructions
[2022-02-22] MEDS: Cordarone 200 MG PO SCH (09:21)
[2022-02-22] MEDS: Ms Contin 15 MG PO SCH (09:21)
[2022-02-22] MEDS: ELIQUIS 2.5 MG TABLET PO SCH (09:21)
[2022-02-22] MEDS: Protonix 40MG Tablet PO SCH (09:22)
[2022-02-22] MEDS: TIMOPTIC 0.5% 5 ML OPHTHALMIC OP SCH (09:23)
[2022-02-22] MEDS: Pepcid 20 MG VIAL IV SCH (09:23)
[2022-02-22] MEDS: ZOLOFT 50 MG TABLET PO SCH (09:23)
[2022-02-22] MEDS: Cardizem CD PO SCH (09:23)
[2022-02-22] MEDS: CLONIDINE 0.1 MG TABLET PO SCH (09:23)
[2022-02-22] MEDS: Lopressor 25MG Tab PO SCH (09:23)
== END 2022-02-22 10:05 | disposition home or self-care (01) ==
LOC: ED 02:51 → MED SURG 06:13
PROVIDERS: ADMIT Family Medicine; ATTEND Family Medicine
DX: R33.9 Retention of urine, unspecified (principal); N17.9 Acute kidney failure, unspecified; E86.0 Dehydration; N39.0 Urinary tract infection, site not specified; I11.0 Hypertensive heart disease with heart failure; I50.9 Heart failure, unspecified; Z79.899 Other long term (current) drug therapy; Z20.828 Contact with and (suspected) exposure to other viral communicable diseases; Z85.51 Personal history of malignant neoplasm of bladder; Z99.81 Dependence on supplemental oxygen
CPT/HCPCS: 0241U; 36000; 36415; 51702; 80053; 81015; 85025; 87086; 93268; 94760; 96365; 99284; G0378; J0696; A9270-GY

== ENCOUNTER 2022-03-21 15:13 | Emergency (ER) | payer MEDICARE ==
[2022-03-21] MEDS ORDERED: XYLOCAINE 1% HCL 20 ML MDV ONE (16:32)
[2022-03-21] MEDS: XYLOCAINE 1% HCL 20 ML MDV IJ ONE (16:35)
--- NOTE | 2022-03-21 16:39 | ERPHSYRPT ---
- History of Present Illness Time Seen by Provider: 03/21/22 15:16 Source: patient, family Exam Limitations: no limitations Patient Subjective Stated Complaint: pt here for a fall today, states tripped on sole of shoe and hit head on metal, no loc Triage Nursing Assessment: pt alert, arrived per wc, resp easy face mask in place, has laceration to forehead . no bleeding noted Physician History: 86 years old male with history of congestive heart failure, atrial fibrillation on NOACs up-to-date with tetanus presented in the ER after he tripped on his own shoe sole, fell forward and hit the metal rail without loss of consciousness. Has a laceration with bleeding initially but stopped with applying pressure. Complaining of mild headache. Also complaining of mild neck pain. Denies any numbness tingling or focal weakness. Denies any chest pain palpitations, shortness of breath, dizziness or lightheadedness before or after the fall. No nausea or vomiting. Occurred: just prior to arrival Severity: moderate Head Injury Location: frontal Method of Injury: fell Loss of Consciousness: no loss of consciousness Associated Symptoms: headaches, No nausea, No vomiting, No shortness of breath, No chest pain, No syncope, No seizure, No weakness Allergies/Adverse Reactions: No Known Allergies Allergy (Verified 03/21/22 15:25) Home Medications: Hydrocodone/Acetaminophen [Hydrocodone-Acetamin 7.5-325] 1 tab PO Q4H PRN PRN 06/08/20 [History] Morphine Sulfate Cr 15 mg [Ms Contin 15 MG] 15 mg PO HS 06/08/20 [History] Morphine Sulfate Cr 30 mg [Ms Contin 30 mg] 30 mg PO DAILY 06/08/20 [History] PANTOPRAZOLE 40 mg Tablet [Protonix 40MG Tablet] 40 mg PO BID 06/08/20 [History] Sertraline HCl 100 mg PO DAILY 06/08/20 [History] Amiodarone HCl 50 mg PO DAILY 02/20/22 [History] Apixaban [Eliquis 5 mg Tablet] 2.5 mg PO BID 02/20/22 [History] Diltiazem HCl [Diltiazem 24Hr ER] 120 mg PO DAILY 02/20/22 [History] Ferrous Sulfate 325 mg PO BID 02/20/22 [History] Furosemide 40 mg [Lasix 40 MG] 40 mg PO BID 02/20/22 [History] Metoprolol Tartrate 25 mg [Lopressor 25MG Tab] 75 mg PO BID 02/20/22 [History] Multivitamin [Multi-Vitamin Daily] 1 each PO DAILY 02/20/22 [History] Olanzapine 5 mg [zyPREXA 5MG TABLET] 5 mg PO HS 02/20/22 [History] Tamsulosin HCl 0.4 mg [Flomax 0.4 MG] 0.4 mg PO HS 02/20/22 [History] Timolol Maleate/Pf [Timolol Maleate 0.5% Eye Drop] 1 each OP BID 02/20/22 [History] cloNIDine HCL [Clonidine HCl] 0.2 mg PO TID 02/20/22 [History] Hx Tetanus, Diphtheria Vaccination/Date Given: No Hx Influenza Vaccination/Date Given: No Hx Pneumococcal Vaccination/Date Given: No Immunizations Up to Date: Yes Travel Risk - International Travel Have you traveled outside of the country in past 3 weeks: No - Coronavirus Screening Are you exhibiting any of the following symptoms?: No Close contact with a COVID-19 positive Pt in past 14-21 Days: No - Vaccine Status Have you recieved a Covid-19 vaccination: No - Review of Systems Constitutional: No Symptoms Eyes: No Symptoms Ears, Nose, & Throat: No Symptoms Respiratory: No Symptoms Cardiac: No Symptoms Abdominal/Gastrointestinal: No Symptoms Genitourinary Symptoms: No Symptoms Musculoskeletal: Injury Skin: Skin Lesions Neurological: Headache Psychological: No Symptoms Endocrine: No Symptoms Hematologic/Lymphatic: No Symptoms Immunological/Allergic: No Symptoms - Past Medical History Pertinent Past Medical History: Yes Neurological History: No Pertinent History ENT History: No Pertinent History Cardiac History: Arrhythmia, Hypertension Respiratory History: CHF Endocrine Medical History: No Pertinent History Musculoskeletal History: Arthritis GI Medical History: Other History: Renal Disease Psycho-Social History: Depression Male Reproductive Disorders: No Pertinent History Other Medical History: bladder cancer 2011. home oxygen at bedtime - Past Surgical History Past Surgical History: Yes Neuro Surgical History: No Pertinent History Cardiac: No Pertinent History Respiratory: No Pertinent History Gastrointestinal: Other Genitourinary: Other Musculoskeletal: Orthopedic Surgery Male Surgical History: No Pertinent History Other Surgical History: Bilateral hip replacement, Bilateral shoulder r eplacement, bladder biopsy - Social History Smoking Status: Never smoker Exposure to second hand smoke: No Drug Use: none Patient Lives Alone: No - Nursing Vital Signs Nursing Vital Signs: Initial Vital Signs Temperature 97.0 F 03/21/22 15:20 Pulse Rate 56 L 03/21/22 15:20 Respiratory Rate 18 03/21/22 15:20 Blood Pressure 159/73 03/21/22 15:20 O2 Sat by Pulse Oximetry 97 03/21/22 15:20 Pain Scale Pain Intensity 5 - [place] Coma Score Best Eye Response (My): (4) open spontaneously Best Verbal Response ([place]): (5) oriented Best Motor Response (My): (6) obeys commands My Total: 15 - Physical Exam General Appearance: no apparent distress, alert Head Injury: contusions, lacerations (3.5 cm oblique laceration forehead with closed edges. Minimal tenderness. No step in deformity.), swelling, tenderness, No raccoon eyes Eye Exam: bilateral eye: normal inspection, PERRL, EOMI ENT Exam: airway nml, No evidence of ENT injury, No dental injury Neck Exam: supple, trachea midline, full range of motion, normal alignment, normal inspection Cardiovascular/Respiratory Exam: chest non-tender, normal breath sounds, regular rate/rhythm Gastrointestinal/Abdominal Exam: soft, non tender Extremity Exam: non-tender, normal range of motion, normal inspection Mental Status Exam: alert, oriented x 3, cooperative Coordination/Gait Exam: normal finger to nose, normal gait, normal cerebellar function, negative Romberg's sign Motor/Sensory Exam: no motor deficit, no sensory deficit, no pronator drift, negative Babinski's sign Skin Exam: normal color SpO2 Interpretation: normal SpO2: 97 O2 Delivery: Room Air Procedures - Laceration/Wound Repair Frontal Time of Procedure: 16:37 Wound Location: forehead Wound Length (cm): 3.5 Wound's Depth, Shape: superficial Wound Explored: clean Irrigated: Yes Hibiclens Prep: Yes Anesthesia: 1% Lidocaine Volume Anesthetic (ccs): 5 Wound Debrided: minimal Wound Repaired With: [place] Number of Sutures: 5 Ordered Tests: Active Orders 24 hr Category Date Time Status CERVICAL SPINE WO CONTRAST [CT] Stat Exams 03/21/22 15:37 Taken HEAD WITHOUT CONTRAST [CT] Stat Exams 03/21/22 15:37 Taken - Progress Progress: improved Progress Note: 03/21/22 16:37 Patient refused pain medication. Nonfocal neuro exam. CT head and cervical spine negative for any acute fracture subluxation of spine, skull fracture or internal brain injury. Laceration is repaired. Recommended Tylenol as needed for pain. Follow-up with primary care for reevaluation. Follow head injury instructions and return to ER for any worsening. Counseled pt/family regarding: diagnosis, need for follow-up, rad results - Departure Departure Disposition: Home Clinical Impression: Scalp laceration Condition: Stable Critical Care Time: No Referrals: MANJIT MALDONADO MD [Primary Care Provider] - Follow up/PCP as directed (In 2 days for reevaluation.) Instructions: Laceration Repair With [place] (DC), Head Injury Observation (DC) Additional Instructions: Take Tylenol as needed. Stay with responsible person for next 24 to 48 hours. Follow-up with primary care physician for reevaluation. Follow head injury instructions and return to ER for any worsening.
[2022-03-21] MEDS ORDERED: BACIGUENT PACKET ONE (16:44)
[2022-03-21] MEDS: BACIGUENT PACKET TP ONE (16:45)
[2022-03-21 16:52] VITALS: BP 163/71; PULSE 64; O2SAT 96
--- NOTE | 2022-03-21 19:21 | XRAY ---
Indication: Status post fall. Frontal laceration. Blood thinner therapy. Multiple contiguous axial images obtained through the head without contrast. Comparison: None Age-appropriate global atrophy and mild periventricular degenerative micro-ischemia bilaterally. No acute intracranial hemorrhage, abnormal extra-axial fluid collection, or mass effect. Fourth ventricle is midline without hydrocephalus. Bony calvarium intact. Complete opacification right maxillary sinus. Remaining visualized paranasal sinuses and mastoid air cells are clear. Impression: Nonacute senile brain. Chronic right maxillary sinus disease. Comment: Preliminary interpretation made by [facility]. No critical discrepancy.
--- NOTE | 2022-03-21 19:23 | XRAY ---
Indication: Status post fall. Frontal laceration. Blood thinner therapy. Multiple contiguous axial images obtained through the cervical spine. Sagittal and coronal reformatted images obtained contrast. Comparison: None Osseous structures demineralized consistent with patient's age. Axial images negative for acute fracture, suspicious bony lesions, or spinal canal stenosis. Minimal/mild C3-T2 degenerative endplate spurring. Also multilevel moderate bilateral degenerative facet hypertrophy and moderate atlantoaxial degenerative arthropathy. Sagittal and coronal reformatted images images normal alignment with multilevel disc space narrowing greatest at C5-T2 levels. No acute compression fracture, subluxation, or jump facet. Normal-appearing craniocervical junction. Visualized noncontrasted soft tissues demonstrates mild diffuse scattered carotid calcifications. Lung apices are clear. Impression: 1. Negative for acute fracture/subluxation. 2. Osteopenia and multilevel degenerative changes. Comment: Preliminary interpretation made by [facility]. No critical discrepancy.
== END 2022-03-21 16:54 | disposition home or self-care (01) ==
LOC: ED 15:13
DX: S01.01XA Laceration without foreign body of scalp, initial encounter (principal); W01.198A Fall on same level from slipping, tripping and stumbling with subsequent striking against other object, initial encounter; R51.9 Headache, unspecified; M54.2 Cervicalgia; I11.0 Hypertensive heart disease with heart failure; I50.9 Heart failure, unspecified; Z79.899 Other long term (current) drug therapy; Z28.310 Unvaccinated for COVID-19
CPT/HCPCS: 12002; 70450; 72125; 96372; 99283; A9270-GY

== ENCOUNTER 2022-06-02 09:45 | Day surgery (SDC) | payer MEDICARE ==
[~2022-06-02 09:45] MED LIST: ACETAZOLAMIDE 250 MG TABLET PO ONE; Ak-Dilate OPHTHALMIC*** 1.065 ML, Cyclogyl 1% OPHTH SOL 1.065 ML, GATIFLOXACIN 0.5% OPH... OP ONE; BETADINE 5% OPHTHALMIC 30 ML OP ONE; Lactated Ringers 1,000 ML IV SCH; NON-FORMULARY ITEM OP ONE; TETRACAINE 0.5% STERI-UNIT SOL OP ONE; Zofran 4 MG/2 ML VIAL IV PRN; cefUROXime sodium 0.005 GM in Sodium Chloride Flush 30 ML*** 0.5 ML IJ ONE
[2022-06-02] MEDS ORDERED: Epinephrine Preservative Free 1 MG/ML IJ ONE (09:46)
[2022-06-02] MEDS ORDERED: LIDOCAINE HCL 1% 50 MG/5 ML VL PF IJ ONE (09:46)
[2022-06-02] MEDS ORDERED: Lactated Ringers 1,000 ML IV ONE (10:08)
[2022-06-02 10:42] LABS: INR 1.06 (0.8-3.0); PROTIME 11.2 SECONDS (9.4-12.5)
[2022-06-02] MEDS ORDERED: DIPRIVAN 200 MG/20 ML IV ONE (13:03)
[2022-06-02] MEDS ORDERED: SUBLIMAZE 100 MCG/2 ML ONE (13:03)
[2022-06-02] MEDS ORDERED: Versed 2 MG/2 ML Injection ONE (13:03)
[2022-06-02] MEDS ORDERED: Xylocaine-Mpf 2% 5 Ml Vial ONE (13:03)
[2022-06-02] MEDS ORDERED: TRANDATE 100 MG/20 ML MDV FOR DRIP IV ONE (13:54)
[2022-06-02] MEDS ORDERED: APRESOLINE 20 MG/ML INJ ONE (14:11)
[2022-06-02 14:25] VITALS: PULSE 54; O2SAT 93
[2022-06-02 15:18] VITALS: BP 168/92
== END 2022-06-02 14:50 | disposition home or self-care (01) ==
LOC: SDC 09:45
PROVIDERS: ATTEND Ophthalmology
DX: H25.812 Combined forms of age-related cataract, left eye (principal); H40.1112 Primary open-angle glaucoma, right eye, moderate stage; Z79.01 Long term (current) use of anticoagulants
CPT/HCPCS: 36415; 85610; 99100; C1780; J0171; J0360; J2001; J2250; J2704; J3010; A9270-GY

== ENCOUNTER 2022-09-18 15:28 | Emergency (ER) | payer MEDICARE ==
[2022-09-18 17:04] VITALS: O2SAT 96
--- NOTE | 2022-09-18 20:04 | ERPHSYRPT ---
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 Patient A+O X3. Patient's skin pink, warm and dry. Patient complains of left lower leg pain/calf pain. Patient states he was seen by his doctor and had a doppler done to leg lower leg on 09/17/2022 which was negative. Patient told to come to ED due to unable to bear weight to left leg. Patient complains of pain 9/10 to left leg when bearing weight. Left leg noted to be swollen with pulses present. Physician History: pt has pain left lower leg and Hx of bladder cancer on keytruda. Neg US last week in , but now worse. tense swollen left LE. Unable to walk on this now. Abd nontender bust suspect also involvement from cancer. Ordered CT abd, US leg left art and vein, reviewed adn discuess with pt and family. Tender left leg with pulses palpable. sensation intact still . Will request records from outside to review. [facility] to confirm Hx with family and pt. Hx of afib on elliquis and no cardiac or resp symptoms at this time. Method of Injury: unknown Occurred: days ago Quality: constant, throbbing, tightness Severity of Pain-Max: moderate Severity of Pain-Current: moderate Lower Extremities Pain: leg: left Modifying Factors: Improves With: movement Associated Symptoms: unable to bear weight Allergies/Adverse Reactions: No Known Allergies Allergy (Verified 09/18/22 16:55) Home Medications: Hydrocodone/Acetaminophen [Hydrocodone-Acetamin 7.5-325] 1 tab PO Q4H PRN PRN 06/08/20 [History] Morphine Sulfate Cr 15 mg [Ms Contin 15 MG] 15 mg PO HS 06/08/20 [History] Morphine Sulfate Cr 30 mg [Ms Contin 30 mg] 30 mg PO DAILY 06/08/20 [History] Ferrous Sulfate 325 mg PO BID 02/20/22 [History] Multivitamin [Multi-Vitamin Daily] 1 each PO DAILY 02/20/22 [History] Olanzapine 5 mg [zyPREXA 5MG TABLET] 5 mg PO HS 02/20/22 [History] Timolol Maleate/Pf [Timolol Maleate 0.5% Eye Drop] 1 each OP BID 02/20/22 [Hist ory] Docusate Sodium [Stool Softener] 1 tab PO DAILY 05/21/22 [History] Dorzolamide HCl/Pf [Dorzolamide 2% Eye Drop] 1 drop BID 05/21/22 [History] Amiodarone HCl 200 mg [Cordarone 200 MG] 100 mg PO DAILY 06/02/22 [History] Apixaban [Eliquis 5 mg Tablet] 2.5 mg PO BID 06/02/22 [History] Clonidine HCl 0.1 mg [Clonidine 0.1 mg Tablet] 0.2 mg PO TID 06/02/22 [History] Furosemide 40 mg [Lasix 40 MG] 40 mg PO BID 06/02/22 [History] Metoprolol Tartrate 50 mg [Lopressor 50 MG] 75 mg PO BID 06/02/22 [History] Olanzapine 5 mg [zyPREXA 5MG TABLET] 5 mg PO DAILY 06/02/22 [History] Potassium Chloride [Klor-Con 10] 1 tab PO BID 06/02/22 [History] Sertraline HCl 100 mg PO DAILY 06/02/22 [History] Tamsulosin HCl 0.4 mg [Flomax 0.4 MG] 1 cap PO HS 06/02/22 [History] Amlodipine Besylate 5 mg [Norvasc 5 mg] 5 mg PO BID 07/31/22 [History] Hx Tetanus, Diphtheria Vaccination/Date Given: No Hx Influenza Vaccination/Date Given: No Hx Pneumococcal Vaccination/Date Given: No Immunizations Up to Date: Yes Travel Risk - International Travel Have you traveled outside of the country in past 3 weeks: No - Coronavirus Screening Are you exhibiting any of the following symptoms?: No Close contact with a COVID-19 positive Pt in past 14-21 Days: No - Vaccine Status Have you recieved a Covid-19 vaccination: No - Review of Systems Constitutional: No Fever, No Chills Eyes: No Symptoms Ears, Nose, & Throat: No Symptoms Respiratory: No Cough, No Dyspnea Cardiac: No Chest Pain, No Edema, No Syncope Abdominal/Gastrointestinal: No Abdominal Pain, No Nausea, No Vomiting, No Diarrhea Genitourinary Symptoms: No Dysuria Musculoskeletal: Other (swollen left leg), No Back Pain, No Neck Pain Skin: No Rash Neurological: No Dizziness, No Focal Weakness, No Sensory Changes Psychological: No Symptoms Endocrine: No Symptoms Hematologic/Lymphatic: No Symptoms Immunological/Allergic: No Symptoms All Other Systems: Reviewed and Negative - Past Medical History Pertinent Past Medical History: Yes Neurological History: No Pertinent History ENT History: Cataracts Cardiac History: Arrhythmia, Hypertension Respiratory History: CHF Endocrine Medical History: No Pertinent History Musculoskeletal History: Arthritis GI Medical History: Other History: Bladder Cancer Psycho-Social History: Depression Male Reproductive Disorders: No Pertinent History Other Medical History: bladder cancer 2011. home oxygen at bedtime - Past Surgical History Past Surgical History: Yes Neuro Surgical History: No Pertinent History Cardiac: No Pertinent History Respiratory: No Pertinent History Gastrointestinal: Other Genitourinary: Other Musculoskeletal: Orthopedic Surgery Male Surgical History: No Pertinent History Other Surgical History: Bilateral hip replacement, Bilateral shoulder replacement, bladder biopsy - Social History Smoking Status: Never smoker Exposure to second hand smoke: No Drug Use: none Patient Lives Alone: No - Nursing Vital Signs Nursing Vital Signs: Initial Vital Signs Temperature 97.6 F 09/18/22 16:56 Pulse Rate 72 09/18/22 16:56 Respiratory Rate 18 09/18/22 16:56 Blood Pressure 156/95 09/18/22 16:56 O2 Sat by Pulse Oximetry 96 09/18/22 16:56 Pain Scale Pain Intensity 9 - Physical Exam General Appearance: no apparent distress, alert Eyes, Ears, Nose, Throat Exam: moist mucous membranes Neck Exam: non-tender, supple Cardiovascular/Respiratory Exam: chest non-tender, normal breath sounds, regular rate/rhythm, no respiratory distress Gastrointestinal/Abdominal Exam: non-tender, guarding Back Exam: normal inspection, No vertebral tenderness Hips Exam: bilateral: non-tender, normal inspection, normal range of motion, no evidence of injury Legs Exam: right leg: non-tender, normal inspection, normal range of motion, left leg: pain, soft tissue tenderness, swelling Knees Exam: bilateral knee: non-tender, normal inspection, normal range of motion, no evidence of injury Ankle Exam: bilateral ankle: non-tender, normal inspection, normal range of motion, no evidence of injury Foot Exam: bilateral foot: non-tender, normal inspection, normal range of motion, no evidence of injury DTR - Lower Extremities Exam: knee (R): 2+, knee (L): 2+, ankle (R): 2+, ankle (L): 2+ Neuro/Tendon Exam: normal sensation, normal motor functions, normal tendon functions Mental Status Exam: alert, oriented x 3, cooperative Skin Exam: normal color, warm, dry SpO2 Interpretation: normal SpO2: 96 O2 Delivery: Room Air - Course Nursing assessment & vital signs reviewed: Yes - Radiology Ultrasound Exam Left Venous Lower Extremity Ultrasound: tele radiology report, negative Ordered Tests: Active Orders 24 hr Category Date Time Status ABDOMEN AND PELVIS W/0 CONTRAS [CT] Stat Exams 09/18/22 19:58 Completed LOWER EXTREMITY WO CONTRAST [CT] Stat Exams 09/18/22 20:07 Completed VENOUS UNILAT/LIMITED EXTREMIT [US] Stat Exams 09/18/22 19:57 Taken CBC W DIFF Stat Lab 09/18/22 20:10 Completed CMP Stat Lab 09/18/22 20:10 Completed Lactic Acid Stat Lab 09/18/22 21:40 Completed UA W/RFX UR CULTURE Stat Lab 09/18/22 20:48 Completed Lab/Rad Data: Laboratory Result Diagrams 09/18/22 20:10 09/18/22 20:10 Laboratory Results 09/18/22 09/18/22 09/18/22 Range/Units 21:40 20:48 20:10 WBC (4.0-10.5) x10^3/uL RBC (4.1-5.6) x10^6/uL Hgb (12.5-18.0) g/dL Hct (42-50) % MCV (78-100) fL MCH (26-32) pg MCHC (32-36) g/dL RDW (11.5-14.0) % Plt Count (150-450) x10^3/uL MPV (7.5-11.0) fL Gran % (36.0-66.0) % Immature Gran % (Auto) (0.00-0.4) % Nucleat RBC Rel Count (0.00-0.1) % Eos # (Auto) (0-0.5) x10^3/uL Immature Gran # (Auto) (0.00-0.03) x10^3u/L Absolute Lymphs (auto) (1.0-4.6) x10^3/uL Absolute Monos (auto) (0.0-1.3) x10^3/uL Absolute Nucleated RBC (0.00-0.01) x10^3u/L Lymphocytes % (24.0-44.0) % Monocytes % (0.0-12.0) % Eosinophils % (0.00-5.0) % Basophils % (0.0-0.4) % Absolute Granulocytes (1.4-6.9) x10^3/uL Basophils # (0-0.4) x10^3/uL Sodium 138 (137-145) mmol/L Potassium 4.6 (3.5-5.1) mmol/L Chloride 103 (98-107) mmol/L Carbon Dioxide 35 H (22-30) mmol/L Anion Gap 4.9 L (5-15) MEQ/L BUN 15 (9-20) mg/dL Creatinine 0.77 (0.66-1.25) mg/dL Estimated GFR > 60.0 ML/MIN Glucose 124 H (74-106) mg/dL Lactic Acid 0.7 (0.4-2.0) Calcium 8.3 L (8.4-10.2) mg/dL Total Bilirubin 1.00 (0.2-1.3) mg/dL AST 20 (17-59) U/L ALT 17 (0-50) U/L Alkaline Phosphatase 109 (38-126) U/L Serum Total Protein 6.1 L (6.3-8.2) g/dL Albumin 2.9 L (3.5-5.0) g/dL Urine Color Yellow (Yellow) Urine Appearance Clear (Clear) Urine pH 5.0 (4.6-8.0) Ur Specific [place] 1.010 (1.005-1.030) Urine Protein Negative (Negative) Urine Glucose (UA) Negative (Negative) mg/dL Urine Ketones Negative (Negative) Urine Blood Negative (Negative) Urine Nitrite Negative (Negative) Urine Bilirubin Negative (Negative) Urine Urobilinogen 0.2 (0.2) mg/dL Ur Leukocyte Esterase Trace A (Negative) U Hyaline Cast (Auto) NONE SEEN (0-2) /LPF Urine Microscopic RBC 0-2 (0-5) /HPF Urine Microscopic WBC 3-5 (0-5) /HPF Ur Epithelial Cells None Seen (None Seen) /HPF Uric Acid Crystals 0-2 A (None Seen) /HPF Urine Bacteria None Seen (None Seen) /HPF Urine Culture Reflexed NO (NO) 09/18/22 Range/Units 20:10 WBC 9.3 (4.0-10.5) x10^3/uL RBC 3.57 L (4.1-5.6) x10^6/uL Hgb 11.4 L (12.5-18.0) g/dL Hct 35.2 L (42-50) % MCV 98.6 (78-100) fL MCH 31.9 (26-32) pg MCHC 32.4 (32-36) g/dL RDW 12.6 (11.5-14.0) % Plt Count 238 (150-450) x10^3/uL MPV 8.7 (7.5-11.0) fL Gran % 59.4 (36.0-66.0) % Immature Gran % (Auto) 0.4 (0.00-0.4) % Nucleat RBC Rel Count 0.0 (0.00-0.1) % Eos # (Auto) 0.41 (0-0.5) x10^3/uL Immature Gran # (Auto) 0.04 H (0.00-0.03) x10^3u/L Absolute Lymphs (auto) 2.02 (1.0-4.6) x10^3/uL Absolute Monos (auto) 1.29 (0.0-1.3) x10^3/uL Absolute Nucleated RBC 0.00 (0.00-0.01) x10^3u/L Lymphocytes % 21.8 L (24.0-44.0) % Monocytes % 13.9 H (0.0-12.0) % Eosinophils % 4.4 (0.00-5.0) % Basophils % 0.1 (0.0-0.4) % Absolute Granulocytes 5.48 (1.4-6.9) x10^3/uL Basophils # 0.01 (0-0.4) x10^3/uL Sodium (137-145) mmol/L Potassium (3.5-5.1) mmol/L Chloride (98-107) mmol/L Carbon Dioxide (22-30) mmol/L Anion Gap (5-15) MEQ/L BUN (9-20) mg/dL Creatinine (0.66-1.25) mg/dL Estimated GFR ML/MIN Glucose (74-106) mg/dL Lactic Acid (0.4-2.0) Calcium (8.4-10.2) mg/dL Total Bilirubin (0.2-1.3) mg/dL AST (17-59) U/L ALT (0-50) U/L Alkaline Phosphatase (38-126) U/L Serum Total Protein (6.3-8.2) g/dL Albumin (3.5-5.0) g/dL Urine Color (Yellow) Urine Appearance (Clear) Urine pH (4.6-8.0) Ur Specific [place] (1.005-1.030) Urine Protein (Negative) Urine Glucose (UA) (Negative) mg/dL Urine Ketones (Negative) Urine Blood (Negative) Urine Nitrite (Negative) Urine Bilirubin (Negative) Urine Urobilinogen (0.2) mg/dL Ur Leukocyte Esterase (Negative) U Hyaline Cast (Auto) (0-2) /LPF Urine Microscopic RBC (0-5) /HPF Urine Microscopic WBC (0-5) /HPF Ur Epithelial Cells (None Seen) /HPF Uric Acid Crystals (None Seen) /HPF Urine Bacteria (None Seen) /HPF Urine Culture Reflexed (NO) - Progress Progress: improved, re-examined Progress Note: 09/18/22 22:52 discussed results with pt and and they are aware of compartment risk and of risk from stopping elliquis and for now they would like to try conservative approach with quoc and elevation and stay on elliquis to avoid complication risk as trade off for increased risk of compartment syndrome. they have the capacity to make this choice. they are advised of the kidney stone, hematoma in left leg, kidney cyst, bladder obstruction, RIH, and to f/u PMD. Counseled pt/family regarding: lab results, diagnosis, need for follow-up, rad results - Departure Departure Disposition: Home Clinical Impression: Kidney stone, Hematoma of right lower leg, Renal cyst Condition: Good Critical Care Time: No Referrals: MANJIT MALDONADO MD [Primary Care Provider] - Follow up/PCP as directed Instructions: Acute Compartment Syndrome (DC), Kidney Stones (DC) Additional Instructions: There is a risk of compartment syndrome in your leg with the hematoma there so we are including those instructions although the circulation seems good so far. Keep it elevated to help. return meantime if any numbness or pain at rest. or other concerns. Followup with your Dr for kidney stone and cyst, blood pressure, hernia on right , and bladder. talk to your dr.s about the risk for stopping elliquis which may have to be considered if leg swelling progresses or there is pain at rest or numbness. see your Dr. also for blood pressure.
[2022-09-18 20:12] LABS: Absolute Neutrophil Ct (ANC) 5.48 x10^3/uL (1.4-6.9); BASOPHIL % 0.1 % (0.0-0.4); Basophil (Absolute #) 0.01 x10^3/uL (0-0.4); Eosinophil % 4.4 % (0.00-5.0); Eosinophil (Absolute #) 0.41 x10^3/uL (0-0.5); Hematocrit 35.2 % (42-50); Hemoglobin 11.4 g/dL (12.5-18.0); IMMATURE GRAN # 0.04 x10^3u/L (0.00-0.03); IMMATURE GRAN % 0.4 % (0.00-0.4); Lymphocyte (Absolute #) 2.02 x10^3/uL (1.0-4.6); Lymphocytes % 21.8 % (24.0-44.0); Mean Cell Volume 98.6 fL (78-100); Mean Corpuscular Hemoglobin 31.9 pg (26-32); Mean Corpuscular Hgb Concent. 32.4 g/dL (32-36); Mean Platelet Volume 8.7 fL (7.5-11.0); Monocyte (Absolute #) 1.29 x10^3/uL (0.0-1.3); Monocytes % 13.9 % (0.0-12.0); Neutrophil % 59.4 % (36.0-66.0); Platelet Count 238 x10^3/uL (150-450); Red Blood Count 3.57 x10^6/uL (4.1-5.6); Red Cell Distribution Width 12.6 % (11.5-14.0); White Blood Count 9.3 x10^3/uL (4.0-10.5)
[2022-09-18 20:26] LABS: ALBUMIN 2.9 g/dL (3.5-5.0); ALKALINE PHOSPHATASE 109 U/L (38-126); ANION GAP 4.9 MEQ/L (5-15); BLOOD UREA NITROGEN 15 mg/dL (9-20); CHLORIDE 103 mmol/L (98-107); Calcium 8.3 mg/dL (8.4-10.2); Carbon Dioxide 35 mmol/L (22-30); Creatinine 1 0.77 mg/dL (0.66-1.25); EST GLOMERULAR FILTRATION RATE > 60.0 ML/MIN; Glucose 124 mg/dL (74-106); Potassium 4.6 mmol/L (3.5-5.1); SGOT/AST 20 U/L (17-59); SGPT/ALT 17 U/L (0-50); SODIUM 138 mmol/L (137-145); Total Protein 6.1 g/dL (6.3-8.2)
--- NOTE | 2022-09-18 21:14 | XRAY ---
Indication: Left lower leg pain and swelling. History of bladder cancer. Metastasis. Multiple contiguous axial images obtained through the abdomen and pelvis without contrast. Comparison: None Lung bases demonstrates small medial right lower lobe calcified granuloma and minimal fibrosis/scarring bilaterally. No infiltrate or effusion. Heart borderline enlarged. Pelvis limited due to extreme beam artifact from bilateral total hip arthroplasty. Noncontrasted stomach and bowel loops appear nonobstructed with normal appendix. Moderate/significant diffuse scattered colonic fecal debris throughout including mild rectal impaction. Urinary bladder is markedly distended concerning for outlet obstruction versus neurogenic bladder. Reflux into right ureter and right kidney with subsequent mild hydroureter/hydronephrosis. Inferior right kidney demonstrates 7 mm calculus. Inferior left kidney demonstrates 2.2 cm exophytic cyst. No free fluid/air. Remaining liver, gallbladder, pancreas, spleen, adrenal glands, left kidney, and left ureter unremarkable for noncontrast exam. Mild/moderate scattered aortoiliac calcifications without AAA. Osseous structures intact with osteopenia and moderate/advanced multilevel thoracolumbar degenerative spondylosis. Small fatty right inguinal hernia. Impression: 1. 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 2. Moderate/significant diffuse fecal stasis with rectal impaction. 3. Markedly distended urinary bladder with subsequent right hydronephrosis/hydroureter. Rule out urinary bladder outlet obstruction versus neurogenic bladder. 4. Chronic findings including right renal micro-calculus, small left renal cyst, arteriosclerotic disease, chronic bony findings, small fatty right inguinal hernia, and old granulomatous disease.
--- NOTE | 2022-09-18 21:20 | XRAY ---
Indication: Left lower leg pain and swelling. History of bladder cancer. Metastasis. Multiple contiguous axial images obtained through the left lower leg to include the knee and ankle. 2-D sagittal and coronal reformatted images obtained. Comparison: None Medial gastrocnemius demonstrates large heterogeneous fluid collection measuring at least 3.9 x 7.8 x 17.5 cm, possibly hematoma in the right clinical setting. Inflammatory/infectious process is not completely excluded on this noncontrast exam. Mid to lower leg demonstrates diffuse subcutaneous soft tissue swelling/edema throughout and moderate scattered vascular calcifications. Small nonspecific knee effusion. Bone windows reveals osteopenia and small posterior heel spur.. No acute fracture, suspicious bony lesions, or osseous destructive process. Impression: 1. Large heterogeneous fluid collection medial gastrocnemius as detailed, possibly hematoma in the right clinical setting. Inflammatory/infectious process not completely excluded. 2. Diffuse mid to lower leg subcutaneous soft tissue swelling/edema and small nonspecific knee effusion. 3. Osteopenia, small posterior heel spur, and moderate scattered vascular calcifications.
[2022-09-18 21:39] LABS: Bacteria None Seen /HPF (None Seen); Bilirubin Negative (Negative); Blood Negative (Negative); Epithelial Cells None Seen /HPF (None Seen); Glucose, Urine Negative (Negative); Hyaline Casts NONE SEEN /LPF (0-2); Ketones Negative (Negative); Leukocyte Esterase Trace (Negative); Nitrite Negative (Negative); Protein,Urine Dip Negative (Negative); RBC 0-2 /HPF (0-5); Urobilinogen 0.2 mg/dL (0.2)
[2022-09-18 21:48] LABS: Appearance Clear (Clear); Uric Acid Crystals 0-2 /HPF (None Seen)
[2022-09-18 21:49] LABS: ADD URINE CULTURE? NO (NO)
[2022-09-18 23:16] VITALS: BP 150/93; PULSE 70
--- NOTE | 2022-09-19 07:56 | XRAY ---
Indication: Pain and swelling. Blood thinner therapy. Two-dimensional sonogram and color Doppler imaging of the major venous vessels of the left leg performed. Comparison: None No thrombus seen in the examined deep venous vessels of the left leg including greater saphenous vein. Veins demonstrate normal compressibility. Venous waveforms are normal with and without augmentation. Posterior lower leg demonstrates 6.2 x 1.9 x 3.4 cm heterogeneous echogenicity. Impression: 1. Left leg negative for DVT. 2. Posterior lower leg heterogeneous echogenicity further detailed on CT lower extremity exam performed earlier in the day. Comment: Preliminary report was given.
== END 2022-09-18 23:17 | disposition home or self-care (01) ==
LOC: ED 15:28
DX: S80.12XA Contusion of left lower leg, initial encounter (principal); N20.0 Calculus of kidney; N28.1 Cyst of kidney, acquired; M79.662 Pain in left lower leg; I10 Essential (primary) hypertension; Z79.01 Long term (current) use of anticoagulants; Z79.899 Other long term (current) drug therapy; Z28.310 Unvaccinated for COVID-19
CPT/HCPCS: 36415; 73700; 74176; 80053; 81001; 83605; 85025; 93971; 99283

== ENCOUNTER 2022-10-30 13:27 | Observation (INO) | payer MEDICARE ==
--- NOTE | 2022-10-30 15:30 | ERPHSYRPT ---
- History of Present Illness Time Seen by Provider: 10/30/22 15:30 Historian: patient, family Exam Limitations: clinical condition Patient Subjective Stated Complaint: pt here for loose stools today, pt is a poor historian, pt has hx of bladder ca, and is now off hes chemo to see if it will help Triage Nursing Assessment: pt alert, resp easy, face mask in place, abd soft Physician History: 87yo M presents to the ED w/ a several week hx of nausea and diarrhea. Patient is a poor historian, but his assists w/ filling in pertinent details about his care. She reports that he has been taking Keytruda chemotherapy for his bladder CA for the past year. She denies recent abx use. Patient reports abd pain, decreased appetite, leg swelling and increased falls. Patient wishes to be full code and agrees w/ that plan. Timing/Duration: week(s) Activities at Onset: none Quality: sharpness Abdominal Pain Onset Location: periumbilical, suprapubic Pain Radiation: no radiation Severity of Pain-Max: moderate Severity of Pain-Current: moderate Modifying Factors: Improves With: rest. Worsens With: eating, movement, palpation Associated Symptoms: diarrhea, fatigue, loss of appetite, nausea, weakness, No chest pain, No diaphoresis, No fever/chills, No rash, No shortness of breath, No vomiting Previous symptoms: no prior history Allergies/Adverse Reactions: No Known Allergies Allergy (Verified 10/30/22 22:26) Home Medications: Morphine Sulfate Cr 15 mg [Ms Contin 15 MG] 30 mg PO HS 06/08/20 [History] Morphine Sulfate Cr 30 mg [Ms Contin 30 mg] 45 mg PO DAILY 06/08/20 [History] Ferrous Sulfate 325 mg PO DAILY 02/20/22 [History] Multivitamin [Multi-Vitamin Daily] 1 each PO DAILY 02/20/22 [History] Olanzapine 5 mg [zyPREXA 5MG TABLET] 5 mg PO HS 02/20/22 [History] Timolol Maleate/Pf [Timolol Maleate 0.5% Eye Drop] 1 each OP BID 02/20/22 [History] Docusate Sodium [Stool Softener] 1 tab PO DAILY 05/21/22 [History] Dorzolamide HCl/Pf [Dorzolamide 2% Eye Drop] 1 drop BID 05/21/22 [History] Amiodarone HCl 200 mg [Cordarone 200 MG] 100 mg PO DAILY 06/02/22 [History] Apixaban [Eliquis 5 mg Tablet] 2.5 mg PO BID 06/02/22 [History] Clonidine HCl 0.1 mg [Clonidine 0.1 mg Tablet] 0.2 mg PO TID 06/02/22 [History] Furosemide 40 mg [Lasix 40 MG] 40 mg PO BID 06/02/22 [History] Metoprolol Tartrate 50 mg [Lopressor 50 MG] 75 mg PO BID 06/02/22 [History] Potassium Chloride [Klor-Con 10] 1 tab PO BID 06/02/22 [History] Sertraline HCl 100 mg PO DAILY 06/02/22 [History] Tamsulosin HCl 0.4 mg [Flomax 0.4 MG] 1 cap PO HS 06/02/22 [History] Hydrocodone/Acetaminophen [Hydrocodone-Acetamin 10-325 mg] 1 each PO QID 10/30/22 [History] Lisinopril 10 mg [Zestril 10 MG] 20 mg PO DAILY 10/30/22 [History] Pantoprazole 20 mg [Protonix 20MG Tablet] 40 mg PO DAILY 10/30/22 [History] Hx Tetanus, Diphtheria Vaccination/Date Given: No Hx Influenza Vaccination/Date Given: No Hx Pneumococcal Vaccination/Date Given: No Immunizations Up to Date: Yes Travel Risk - International Travel Have you traveled outside of the country in past 3 weeks: No - Coronavirus Screening Are you exhibiting any of the following symptoms?: No Close contact with a COVID-19 positive Pt in past 14-21 Days: No - Vaccine Status Have you recieved a Covid-19 vaccination: No - Review of Systems Constitutional: Weakness, No Fever, No Chills Respiratory: No Symptoms Cardiac: No Symptoms Abdominal/Gastrointestinal: Abdominal Pain, Nausea, Diarrhea, Appetite Changes, No Vomiting, No Constipation, No Hematemesis, No Hematochezia, No Melena, No Dysphagia Genitourinary Symptoms: No Dysuria, No Frequency, No Hematuria Musculoskeletal: Fall Skin: No Symptoms Neurological: No Symptoms - Past Medical History Pertinent Past Medical History: Yes Neurological History: No Pertinent History ENT History: Cataracts Cardiac History: Arrhythmia, Hypertension Respiratory History: CHF Endocrine Medical History: No Pertinent History Musculoskeletal History: Arthritis GI Medical History: Other History: Bladder Cancer Psycho-Social History: Depression Male Reproductive Disorders: No Pertinent History Other Medical History: bladder cancer 2011. home oxygen at bedtime - Past Surgical History Past Surgical History: Yes Neuro Surgical History: No Pertinent History Cardiac: No Pertinent History Respiratory: No Pertinent History Gastrointestinal: Other Genitourinary: Other Musculoskeletal: Orthopedic Surgery Male Surgical History: No Pertinent History Other Surgical History: Bilateral hip replacement, Bilateral shoulder replacement, bladder biopsy - Social History Smoking Status: Never smoker Exposure to second hand smoke: No Drug Use: none Patient Lives Alone: No - Nursing Vital Signs Nursing Vital Signs: Initial Vital Signs Temperature 97.0 F 10/30/22 15:07 Pulse Rate 60 10/30/22 15:07 Respiratory Rate 18 10/30/22 15:07 Blood Pressure 110/48 10/30/22 15:07 O2 Sat by Pulse Oximetry 97 10/30/22 15:07 Pain Scale Pain Intensity 0 - Physical Exam General Appearance: no apparent distress Eye Exam: eyes nml inspection Ears, Nose, Throat Exam: normal ENT inspection Neck Exam: normal inspection, non-tender, supple, full range of motion Respiratory Exam: normal breath sounds, lungs clear, airway intact, No chest tenderness, No respiratory distress Cardiovascular Exam: regular rate/rhythm, normal heart sounds, capillary refill <2 sec, No edema Gastrointestinal/Abdomen Exam: soft, normal bowel sounds, tenderness, guarding, No distention, No mass, No rebound Back Exam: normal inspection, normal range of motion, No CVA tenderness Extremity Exam: normal inspection, normal range of motion Neurologic Exam: alert, cooperative Skin Exam: normal color, warm, dry, No rash SpO2 Interpretation: normal SpO2: 97 O2 Delivery: Room Air - Course Nursing assessment & vital signs reviewed: Yes - Radiology Exams Chest X-ray Interpretation: Reviewed by me, Negative - CT Exams Abdomen/Pelvis CT Interpretation: Tele-radiologist Report, Other (proctocolitis) Ordered Tests: Active Orders 24 hr Category Date Time Status Code Status Order ROUTINE Care 03/17/23 22:19 Active EKG-ER Only STAT Care 10/30/22 15:47 Completed IV Care Q6H Care 10/30/22 22:19 Active IV Insertion STAT Care 10/30/22 15:[address] in Observation ROUTINE Care 10/30/22 22:19 Active House Regular Diet Diet 10/31/22 Breakfast Active ABDOMEN AND PELVIS W CONTRAST [CT] Stat Exams 10/30/22 15:48 Completed CHEST 1 VIEW (PORTABLE) Stat Exams 10/30/22 15:47 Completed BLOOD CULTURE Stat Lab 10/30/22 16:30 Received BMP AM.LAB Lab 10/31/22 04:00 Ordered CBC W DIFF AM.LAB Lab 10/31/22 04:00 Ordered CBC W DIFF Stat Lab 10/30/22 15:56 Completed CMP Stat Lab 10/30/22 15:56 Completed FECAL OCCULT BLOOD - SCREENING Stat Lab 10/30/22 19:39 Completed LIPASE Stat Lab 10/30/22 15:56 Completed Lactic Acid Stat Lab 10/30/22 16:40 Completed PROTIME WITH INR Stat Lab 10/30/22 15:56 Completed TROPONIN Q4H Lab 10/30/22 15:56 Completed TROPONIN Q4H Lab 10/30/22 20:25 Completed TROPONIN Q4H Lab 10/31/22 00:20 Completed UA W/RFX UR CULTURE Stat Lab 10/30/22 19:39 Completed Medication Summary Generic Name Dose Route Start Last Admin Trade Name Freq PRN Reason Stop Dose Admin Hydrocodone Bitart/Acetaminophen 1 tablet 10/31/22 02:06 Hydrocodone/Acetamin 10-325 Mg Tablet PO 11/05/22 02:05 QID PRN PRN PAIN Clonidine 0.2 mg 10/31/22 02:04 Clonidine Hcl 0.1 Mg Tablet PO 11/30/22 02:03 TID FERNANDO Furosemide 40 mg 10/31/22 02:06 Furosemide 40 Mg Tablet PO 11/30/22 02:05 BID DIURETIC FERNANDO Sodium Chloride 1,000 mls @ 100 mls/hr 10/30/22 22:19 10/31/22 00:11 Sodium Chloride 0.9% 1000 Ml IV 11/29/22 22:18 100 mls/hr .Q10H FERNANDO Administration Ceftriaxone Sodium/Dextrose 1 g in 50 mls @ 100 mls/hr 10/31/22 10:00 Rocephin 1 Gm-D5w 50 Ml Bag IV 11/03/22 09:59 Q24H10 FERNANDO Metronidazole 500 mg in 100 mls @ 200 mls/hr 10/31/22 00:00 10/31/22 00:09 Flagyl 500 Mg Ivpb IV 11/30/22 00:00 200 mls/hr Q6HT FERNANDO Administration Metoprolol Tartrate 75 mg 10/31/22 02:07 Metoprolol Tartrate 50 Mg Tablet PO 11/30/22 02:06 BID FERNANDO Morphine Sulfate 30 mg 10/31/22 02:07 Morphine Sulfate 15 Mg Tablet.Sa PO 11/05/22 02:06 HS FERNANDO Olanzapine 5 mg 10/31/22 02:09 Olanzapine 5 Mg Tab PO 11/30/22 02:08 HS FERNANDO Ondansetron HCl 4 mg 10/30/22 22:19 Ondansetron Hcl 4 Mg/2 Ml Vial IV 11/29/22 22:18 Q6H PRN PRN NAUSEA/VOMITING Potassium Chloride 10 meq 10/31/22 02:09 Potassium Chloride Tab 10 Meq Tab PO 11/30/22 02:08 BID FERNANDO Tamsulosin HCl 0.4 mg 10/31/22 02:10 Tamsulosin Hcl 0.4 Mg Cap PO 11/30/22 02:09 HS FERNANDO Timolol Maleate 1 ml 10/31/22 02:10 Timolol Maleate 0.5% 5 Ml Eye Drops OP 11/30/22 02:09 BID FERNANDO Discontinued Medications Generic Name Dose Route Start Last Admin Trade Name Freq PRN Reason Stop Dose Admin Sodium Chloride 1,000 mls @ 999 mls/hr 10/30/22 15:47 10/30/22 17:19 Sodium Chloride 0.9% 1000 Ml IV 10/30/22 16:47 Infused .Q1H1M STA Infusion Sodium Chloride Confirm 10/30/22 15:56 Sodium Chloride 0.9% 1000 Ml Administered 10/30/22 15:57 Dose 1,000 mls @ ud .ROUTE .STK-MED ONE Metronidazole 500 mg in 100 mls @ 200 mls/hr 10/30/22 18:59 10/30/22 21:33 Flagyl 500 Mg Ivpb IV 10/30/22 19:28 Infused STAT STA Infusion Ceftriaxone Sodium/Dextrose 2 g in 50 mls @ 100 mls/hr 10/30/22 18:59 10/30/22 20:11 Rocephin 2 Gm-D5w 50ml Bag IV 10/30/22 19:28 Infused STAT STA Infusion Ceftriaxone Sodium/Dextrose Confirm 10/30/22 19:13 Rocephin 2 Gm-D5w 50ml Bag Administered 10/30/22 19:14 Dose 2 g in 50 mls @ ud IV .STK-MED ONE Metronidazole Confirm 10/30/22 19:59 Flagyl 500 Mg Ivpb Administered 10/30/22 20:00 Dose 500 mg in 100 mls @ ud IV .STK-MED ONE Metoclopramide HCl 10 mg 10/30/22 15:47 10/30/22 16:00 Metoclopramide Hcl 10 Mg/2 Ml Vial IV 10/30/22 15:48 10 mg STAT ONE Administration Metoclopramide HCl Confirm 10/30/22 15:55 Metoclopramide Hcl 10 Mg/2 Ml Vial Administered 10/30/22 15:56 Dose 10 mg .ROUTE .STK-MED ONE Morphine Sulfate 2 mg 10/30/22 15:47 10/30/22 16:00 Morphine Sulfate 2 Mg/Ml Inj IV 10/30/22 15:48 2 mg STAT ONE Administration Morphine Sulfate Confirm 10/30/22 15:55 Morphine Sulfate 2 Mg/Ml Inj Administered 10/30/22 15:56 Dose 2 mg .ROUTE .STK-MED ONE Pantoprazole Sodium 40 mg 10/30/22 15:47 10/30/22 16:01 Pantoprazole 40 Mg Vial IV 10/30/22 15:48 40 mg STAT ONE Administration Pantoprazole Sodium Confirm 10/30/22 15:56 Pantoprazole 40 Mg Vial Administered 10/30/22 15:57 Dose 40 mg IV .STK-MED ONE Lab/Rad Data: Laboratory Result Diagrams 10/30/22 15:56 10/30/22 15:56 Laboratory Results 10/30/22 10/30/22 10/30/22 Range/Units 20:25 19:39 19:39 WBC (4.0-10.5) x10^3/uL RBC (4.1-5.6) x10^6/uL Hgb (12.5-18.0) g/dL Hct (42-50) % MCV (78-100) fL MCH (26-32) pg MCHC (32-36) g/dL RDW (11.5-14.0) % Plt Count (150-450) x10^3/uL MPV (7.5-11.0) fL Gran % (36.0-66.0) % Immature Gran % (Auto) (0.00-0.4) % Nucleat RBC Rel Count (0.00-0.1) % Eos # (Auto) (0-0.5) x10^3/uL Immature Gran # (Auto) (0.00-0.03) x10^3u/L Absolute Lymphs (auto) (1.0-4.6) x10^3/uL Absolute Monos (auto) (0.0-1.3) x10^3/uL Absolute Nucleated RBC (0.00-0.01) x10^3u/L Lymphocytes % (24.0-44.0) % Monocytes % (0.0-12.0) % Eosinophils % (0.00-5.0) % Basophils % (0.0-0.4) % Absolute Granulocytes (1.4-6.9) x10^3/uL Basophils # (0-0.4) x10^3/uL PT (9.4-12.5) SECONDS INR (0.8-3.0) Sodium (137-145) mmol/L Potassium (3.5-5.1) mmol/L Chloride (98-107) mmol/L Carbon Dioxide (22-30) mmol/L Anion Gap (5-15) MEQ/L BUN (9-20) mg/dL Creatinine (0.66-1.25) mg/dL Estimated GFR ML/MIN Glucose (74-106) mg/dL Lactic Acid (0.4-2.0) Calcium (8.4-10.2) mg/dL Total Bilirubin (0.2-1.3) mg/dL AST (17-59) U/L ALT (0-50) U/L Alkaline Phosphatase (38-126) U/L Troponin I < 0.012 (0.000-0.034) ng/mL Serum Total Protein (6.3-8.2) g/dL Albumin (3.5-5.0) g/dL Lipase (23-300) U/L Urine Color (Yellow) Urine Appearance (Clear) Urine pH (4.6-8.0) Ur Specific Stacy (1.005-1.030) Urine Protein (Negative) Urine Glucose (UA) (Negative) mg/dL Urine Ketones (Negative) Urine Blood (Negative) Urine Nitrite (Negative) Urine Bilirubin (Negative) Urine Urobilinogen (0.2) mg/dL Ur Leukocyte Esterase (Negative) U Hyaline Cast (Auto) (0-2) /LPF Urine Microscopic RBC (0-5) /HPF Urine Microscopic WBC (0-5) /HPF Ur Epithelial Cells (None Seen) /HPF Urine Bacteria (None Seen) /HPF Urine Culture Reflexed (NO) Stool Occult Blood POSITIVE A (NEGATIVE) C. difficile Screen NEGATIVE (NEGATIVE) C.difficile 027-NAP1-B1 PRESUMPTIVE NEGATIVE (NEGATIVE) Influenza Type A Ag (NEGATIVE) Influenza Type B Ag (NEGATIVE) RSV (PCR) (NEGATIVE) SARS-CoV-2 (PCR) (NEGATIVE) 10/30/22 10/30/22 10/30/22 Range/Units 19:39 19:10 16:40 WBC (4.0-10.5) x10^3/uL RBC (4.1-5.6) x10^6/uL Hgb (12.5-18.0) g/dL Hct (42-50) % MCV (78-100) fL MCH (26-32) pg MCHC (32-36) g/dL RDW (11.5-14.0) % Plt Count (150-450) x10^3/uL MPV (7.5-11.0) fL Gran % (36.0-66.0) % Immature Gran % (Auto) (0.00-0.4) % Nucleat RBC Rel Count (0.00-0.1) % Eos # (Auto) (0-0.5) x10^3/uL Immature Gran # (Auto) (0.00-0.03) x10^3u/L Absolute Lymphs (auto) (1.0-4.6) x10^3/uL Absolute Monos (auto) (0.0-1.3) x10^3/uL Absolute Nucleated RBC (0.00-0.01) x10^3u/L Lymphocytes % (24.0-44.0) % Monocytes % (0.0-12.0) % Eosinophils % (0.00-5.0) % Basophils % (0.0-0.4) % Absolute Granulocytes (1.4-6.9) x10^3/uL Basophils # (0-0.4) x10^3/uL PT (9.4-12.5) SECONDS INR (0.8-3.0) Sodium (137-145) mmol/L Potassium (3.5-5.1) mmol/L Chloride (98-107) mmol/L Carbon Dioxide (22-30) mmol/L Anion Gap (5-15) MEQ/L BUN (9-20) mg/dL Creatinine (0.66-1.25) mg/dL Estimated GFR ML/MIN Glucose (74-106) mg/dL Lactic Acid 1.3 (0.4-2.0) Calcium (8.4-10.2) mg/dL Total Bilirubin (0.2-1.3) mg/dL AST (17-59) U/L ALT (0-50) U/L Alkaline Phosphatase (38-126) U/L Troponin I (0.000-0.034) ng/mL Serum Total Protein (6.3-8.2) g/dL Albumin (3.5-5.0) g/dL Lipase (23-300) U/L Urine Color Yellow (Yellow) Urine Appearance Clear (Clear) Urine pH 5.0 (4.6-8.0) Ur Specific Stacy 1.020 (1.005-1.030) Urine Protein Negative (Negative) Urine Glucose (UA) Negative (Negative) mg/dL Urine Ketones Negative (Negative) Urine Blood Negative (Negative) Urine Nitrite Negative (Negative) Urine Bilirubin Negative (Negative) Urine Urobilinogen 0.2 (0.2) mg/dL Ur Leukocyte Esterase Moderate A (Negative) U Hyaline Cast (Auto) 26-50 A (0-2) /LPF Urine Microscopic RBC 0-2 (0-5) /HPF Urine Microscopic WBC 11-20 A (0-5) /HPF Ur Epithelial Cells Few (None Seen) /HPF Urine Bacteria None Seen (None Seen) /HPF Urine Culture Reflexed NO (NO) Stool Occult Blood (NEGATIVE) C. difficile Screen (NEGATIVE) C.difficile 027-NAP1-B1 (NEGATIVE) Influenza Type A Ag NEGATIVE (NEGATIVE) Influenza Type B Ag NEGATIVE (NEGATIVE) RSV (PCR) NEGATIVE (NEGATIVE) SARS-CoV-2 (PCR) NEGATIVE (NEGATIVE) 10/30/22 10/30/22 10/30/22 Range/Units 15:56 15:56 15:56 WBC (4.0-10.5) x10^3/uL RBC (4.1-5.6) x10^6/uL Hgb (12.5-18.0) g/dL Hct (42-50) % MCV (78-100) fL MCH (26-32) pg MCHC (32-36) g/dL RDW (11.5-14.0) % Plt Count (150-450) x10^3/uL MPV (7.5-11.0) fL Gran % (36.0-66.0) % Immature Gran % (Auto) (0.00-0.4) % Nucleat RBC Rel Count (0.00-0.1) % Eos # (Auto) (0-0.5) x10^3/uL Immature Gran # (Auto) (0.00-0.03) x10^3u/L Absolute Lymphs (auto) (1.0-4.6) x10^3/uL Absolute Monos (auto) (0.0-1.3) x10^3/uL Absolute Nucleated RBC (0.00-0.01) x10^3u/L Lymphocytes % (24.0-44.0) % Monocytes % (0.0-12.0) % Eosinophils % (0.00-5.0) % Basophils % (0.0-0.4) % Absolute Granulocytes (1.4-6.9) x10^3/uL Basophils # (0-0.4) x10^3/uL PT 17.5 H (9.4-12.5) SECONDS INR 1.67 (0.8-3.0) Sodium 136 L (137-145) mmol/L Potassium 4.8 (3.5-5.1) mmol/L Chloride 103 (98-107) mmol/L Carbon Dioxide 32 H (22-30) mmol/L Anion Gap 5.7 (5-15) MEQ/L BUN 14 (9-20) mg/dL Creatinine 1.47 H (0.66-1.25) mg/dL Estimated GFR 48.3 ML/MIN Glucose 105 (74-106) mg/dL Lactic Acid (0.4-2.0) Calcium 7.5 L (8.4-10.2) mg/dL Total Bilirubin 0.60 (0.2-1.3) mg/dL AST 23 (17-59) U/L ALT 18 (0-50) U/L Alkaline Phosphatase 178 H (38-126) U/L Troponin I 0.012 (0.000-0.034) ng/mL Serum Total Protein 5.4 L (6.3-8.2) g/dL Albumin 2.0 L (3.5-5.0) g/dL Lipase < 10 L (23-300) U/L Urine Color (Yellow) Urine Appearance (Clear) Urine pH (4.6-8.0) Ur Specific Stacy (1.005-1.030) Urine Protein (Negative) Urine Glucose (UA) (Negative) mg/dL Urine Ketones (Negative) Urine Blood (Negative) Urine Nitrite (Negative) Urine Bilirubin (Negative) Urine Urobilinogen (0.2) mg/dL Ur Leukocyte Esterase (Negative) U Hyaline Cast (Auto) (0-2) /LPF Urine Microscopic RBC (0-5) /HPF Urine Microscopic WBC (0-5) /HPF Ur Epithelial Cells (None Seen) /HPF Urine Bacteria (None Seen) /HPF Urine Culture Reflexed (NO) Stool Occult Blood (NEGATIVE) C. difficile Screen (NEGATIVE) C.difficile 027-NAP1-B1 (NEGATIVE) Influenza Type A Ag (NEGATIVE) Influenza Type B Ag (NEGATIVE) RSV (PCR) (NEGATIVE) SARS-CoV-2 (PCR) (NEGATIVE) 10/30/22 Range/Units 15:56 WBC 10.0 (4.0-10.5) x10^3/uL RBC 3.35 L (4.1-5.6) x10^6/uL Hgb 10.4 L (12.5-18.0) g/dL Hct 33.6 L (42-50) % MCV 100.3 H (78-100) fL MCH 31.0 (26-32) pg MCHC 31.0 L (32-36) g/dL RDW 13.8 (11.5-14.0) % Plt Count 469 H (150-450) x10^3/uL MPV 8.8 (7.5-11.0) fL Gran % 70.4 H (36.0-66.0) % Immature Gran % (Auto) 0.4 (0.00-0.4) % Nucleat RBC Rel Count 0.0 (0.00-0.1) % Eos # (Auto) 0.19 (0-0.5) x10^3/uL Immature Gran # (Auto) 0.04 H (0.00-0.03) x10^3u/L Absolute Lymphs (auto) 1.44 (1.0-4.6) x10^3/uL Absolute Monos (auto) 1.26 (0.0-1.3) x10^3/uL Absolute Nucleated RBC 0.00 (0.00-0.01) x10^3u/L Lymphocytes % 14.5 L (24.0-44.0) % Monocytes % 12.7 H (0.0-12.0) % Eosinophils % 1.9 (0.00-5.0) % Basophils % 0.1 (0.0-0.4) % Absolute Granulocytes 7.01 H (1.4-6.9) x10^3/uL Basophils # 0.01 (0-0.4) x10^3/uL PT (9.4-12.5) SECONDS INR (0.8-3.0) Sodium (137-145) mmol/L Potassium (3.5-5.1) mmol/L Chloride (98-107) mmol/L Carbon Dioxide (22-30) mmol/L Anion Gap (5-15) MEQ/L BUN (9-20) mg/dL Creatinine (0.66-1.25) mg/dL Estimated GFR ML/MIN Glucose (74-106) mg/dL Lactic Acid (0.4-2.0) Calcium (8.4-10.2) mg/dL Total Bilirubin (0.2-1.3) mg/dL AST (17-59) U/L ALT (0-50) U/L Alkaline Phosphatase (38-126) U/L Troponin I (0.000-0.034) ng/mL Serum Total Protein (6.3-8.2) g/dL Albumin (3.5-5.0) g/dL Lipase (23-300) U/L Urine Color (Yellow) Urine Appearance (Clear) Urine pH (4.6-8.0) Ur Specific Stacy (1.005-1.030) Urine Protein (Negative) Urine Glucose (UA) (Negative) mg/dL Urine Ketones (Negative) Urine Blood (Negative) Urine Nitrite (Negative) Urine Bilirubin (Negative) Urine Urobilinogen (0.2) mg/dL Ur Leukocyte Esterase (Negative) U Hyaline Cast (Auto) (0-2) /LPF Urine Microscopic RBC (0-5) /HPF Urine Microscopic WBC (0-5) /HPF Ur Epithelial Cells (None Seen) /HPF Urine Bacteria (None Seen) /HPF Urine Culture Reflexed (NO) Stool Occult Blood (NEGATIVE) C. difficile Screen (NEGATIVE) C.difficile 027-NAP1-B1 (NEGATIVE) Influenza Type A Ag (NEGATIVE) Influenza Type B Ag (NEGATIVE) RSV (PCR) (NEGATIVE) SARS-CoV-2 (PCR) (NEGATIVE) - Progress Progress: improved Progress Note: Patient found to have proctocolitis, DAWNA and anemia. Started on Rocephin and Flagyl. C diff pending. Discussed case w/ telehospitalist who agrees to admit patient for observation. 10/31/22 02:38 Discussed with : Other (Telehospitalist) Will see patient in: hospital (observation) Counseled pt/family regarding: lab results, diagnosis, rad results Medical Desision Making - Independent Historian Additional History obtained from: Spouse - Discussion of managment Care discussed with:: hospitalist Reviewed:: Test results Agreed on:: Treatment plan, place in obs Will see patient: in hospital - Diagnostic Testing Diagnostic test were ordered, analyzed, and reviewed by me: Yes Radiological Interpretation: Reviewed by me, Teleradiologist Report - Risk of complications The pt has a high risk of morbidity or mortality based on: Decision regarding hospitilization or escalation of hosp level of care - Departure Departure Disposition: Observation Clinical Impression: Proctocolitis, DAWNA (acute kidney injury), Diarrhea, Dehydration, Anemia Condition: Stable Critical Care Time: No
[2022-10-30] MEDS ORDERED: Reglan 10 MG/2 ML IV ONE (15:47)
[2022-10-30] MEDS ORDERED: Sodium Chloride 0.9% 1000 ML 1,000 ML IV STA (15:47)
[2022-10-30] MEDS ORDERED: PROTONIX 40 MG IV IV ONE ×2 (15:47→15:56)
[2022-10-30] MEDS ORDERED: MORPHINE SULFATE 2 MG INJ IV ONE (15:47)
[2022-10-30] MEDS ORDERED: Reglan 10 MG/2 ML ONE (15:55)
[2022-10-30] MEDS ORDERED: MORPHINE SULFATE 2 MG INJ ONE (15:55)
[2022-10-30] MEDS ORDERED: Sodium Chloride 0.9% 1000 ML 1,000 ML ONE (15:56)
[2022-10-30 16:01] LABS: ALKALINE PHOSPHATASE 178 U/L (38-126); ANION GAP 5.7 MEQ/L (5-15); BLOOD UREA NITROGEN 14 mg/dL (9-20); CHLORIDE 103 mmol/L (98-107); Calcium 7.5 mg/dL (8.4-10.2); Carbon Dioxide 32 mmol/L (22-30); Creatinine 1 1.47 mg/dL (0.66-1.25); EST GLOMERULAR FILTRATION RATE 48.3 ML/MIN; Glucose 105 mg/dL (74-106); INR 1.67 (0.8-3.0); PROTIME 17.5 SECONDS (9.4-12.5); Potassium 4.8 mmol/L (3.5-5.1); SGOT/AST 23 U/L (17-59); SGPT/ALT 18 U/L (0-50); SODIUM 136 mmol/L (137-145); Total Protein 5.4 g/dL (6.3-8.2)
[2022-10-30 16:02] LABS: LIPASE < 10 U/L (23-300)
[2022-10-30 16:05] LABS: Absolute Neutrophil Ct (ANC) 7.01 x10^3/uL (1.4-6.9); BASOPHIL % 0.1 % (0.0-0.4); Basophil (Absolute #) 0.01 x10^3/uL (0-0.4); Eosinophil % 1.9 % (0.00-5.0); Eosinophil (Absolute #) 0.19 x10^3/uL (0-0.5); Hematocrit 33.6 % (42-50); Hemoglobin 10.4 g/dL (12.5-18.0); IMMATURE GRAN # 0.04 x10^3u/L (0.00-0.03); IMMATURE GRAN % 0.4 % (0.00-0.4); Lymphocyte (Absolute #) 1.44 x10^3/uL (1.0-4.6); Lymphocytes % 14.5 % (24.0-44.0); Mean Cell Volume 100.3 fL (78-100); Mean Platelet Volume 8.8 fL (7.5-11.0); Monocyte (Absolute #) 1.26 x10^3/uL (0.0-1.3); Monocytes % 12.7 % (0.0-12.0); Neutrophil % 70.4 % (36.0-66.0); Platelet Count 469 x10^3/uL (150-450); Red Blood Count 3.35 x10^6/uL (4.1-5.6); Red Cell Distribution Width 13.8 % (11.5-14.0)
--- NOTE | 2022-10-30 16:39 | XRAY ---
Indication: Hypoxia. Comparison: September 04, 2020 Portable chest is now clear. Heart not enlarged with mild tortuous descending aorta. Bony thorax intact again with osteopenia, degenerative changes, old right rib fractures, and bilateral shoulder arthroplasty. Impression: Nonacute chest with chronic findings.
--- NOTE | 2022-10-30 17:13 | XRAY ---
Indication: Diarrhea. History of bladder cancer. Multiple contiguous images obtained through the abdomen and pelvis using 80 cc Isovue 370 contrast. Comparison: September 18, 2022 Lung bases again demonstrates minimal scattered fibrosis/scarring and small medial right lower lobe calcified granuloma. Heart not enlarged. Pelvis again limited due to extreme beam artifact from bilateral total hip arthroplasty. Noncontrasted stomach and bowel loops nonobstructed. Majority of sigmoid colon and rectum demonstrates new moderate circumferential wall thickening with minimal stranding favoring proctocolitis. No free fluid/air. Stable left lower renal exophytic cyst. Remaining liver, gallbladder, pancreas, spleen, adrenal glands, kidneys, ureters, and bladder are unremarkable. Stable mild/moderate scattered aortoiliac calcifications. No AAA or pathologic retroperitoneal lymphadenopathy. Osseous structures intact again with osteopenia and mild/moderate degenerative changes throughout the visualized spine. Stable small fatty right inguinal hernia and 1.7 cm well-circumscribed right paraspinal subcutaneous partially calcified cyst/mass. Impression: 1. Again extreme beam artifact from bilateral total hip arthroplasty. 2. New CT findings favoring proctocolitis. No complications. 3. Chronic findings including left renal cyst, arteriosclerotic disease, chronic bony findings, fatty right inguinal hernia, right lower back partially calcified mass/cyst, and old granulomatous disease.
[2022-10-30 18:27] LABS: Folate (Folic Acid) > 19.0 ng/mL (2.76 - >20); Vitamin B12 922 pg/mL (239-931)
[2022-10-30] MEDS ORDERED: ROCEPHIN 2 Gm-D5w 50ML BAG** 2 G/50 ML IVPB IV STA (18:59)
[2022-10-30] MEDS ORDERED: FLAGYL 500 MG IVPB 500 MG/100 ML BAG IV STA (18:59)
[2022-10-30] MEDS ORDERED: ROCEPHIN 2 Gm-D5w 50ML BAG** 2 G/50 ML IVPB IV ONE (19:13)
[2022-10-30 19:50] LABS: INFLUENZA A NEGATIVE (NEGATIVE); INFLUENZA B NEGATIVE (NEGATIVE); RESPIRATORY SYNCTIAL VIRUS NEGATIVE (NEGATIVE); SARS-CoV-2 Xpert Express NEGATIVE (NEGATIVE)
[2022-10-30] MEDS ORDERED: FLAGYL 500 MG IVPB 500 MG/100 ML BAG IV ONE (19:59)
[2022-10-30 20:35] LABS: Appearance Clear (Clear); Bacteria None Seen /HPF (None Seen); Bilirubin Negative (Negative); Blood Negative (Negative); Epithelial Cells Few /HPF (None Seen); Glucose, Urine Negative (Negative); Ketones Negative (Negative); Leukocyte Esterase Moderate (Negative); Nitrite Negative (Negative); Protein,Urine Dip Negative (Negative); RBC 0-2 /HPF (0-5); Urobilinogen 0.2 mg/dL (0.2)
[2022-10-30 20:52] LABS: ADD URINE CULTURE? NO (NO); Hyaline Casts 26-50 /LPF (0-2)
[2022-10-30 21:25] LABS: 027 TOX PROD PRESUMPTIVE NEGATIVE (NEGATIVE); TOXIGENIC C. DIFF ORG NEGATIVE (NEGATIVE)
[2022-10-30] MEDS ORDERED: Zofran 4 MG/2 ML VIAL IV PRN (22:19)
[2022-10-31] MEDS: FLAGYL 500 MG IVPB 500 MG/100 ML BAG IV SCH ×5 (00:09→23:11)
[2022-10-31] MEDS: Sodium Chloride 0.9% 1000 ML 1,000 ML IV SCH ×2 (00:11→17:21)
[2022-10-31] MEDS ORDERED: HYDROCODONE-ACETAMIN 10-325 MG PO PRN (02:06)
[2022-10-31] MEDS ORDERED: Lopressor 50 MG PO SCH (02:07)
[2022-10-31] MEDS ORDERED: TIMOPTIC 0.5% 5 ML OPHTHALMIC OP SCH (02:10)
[2022-10-31] MEDS: Lasix 40 MG PO SCH ×3 (03:03→16:37)
[2022-10-31] MEDS: CLONIDINE 0.1 MG TABLET PO SCH ×4 (03:03→21:50)
[2022-10-31] MEDS: Flomax 0.4 MG PO SCH ×2 (03:04→21:51)
[2022-10-31] MEDS: Klor Con PO SCH ×3 (03:04→21:51)
[2022-10-31] MEDS: zyPREXA 5MG TABLET PO SCH ×2 (03:04→21:52)
[2022-10-31] MEDS: Ms Contin 15 MG PO SCH ×2 (03:05→21:51)
[2022-10-31 06:31] LABS: Absolute Neutrophil Ct (ANC) 5.53 x10^3/uL (1.4-6.9); BASOPHIL % 0.1 % (0.0-0.4); Basophil (Absolute #) 0.01 x10^3/uL (0-0.4); Eosinophil % 2.8 % (0.00-5.0); Eosinophil (Absolute #) 0.24 x10^3/uL (0-0.5); Hematocrit 31.5 % (42-50); Hemoglobin 9.5 g/dL (12.5-18.0); IMMATURE GRAN # 0.04 x10^3u/L (0.00-0.03); IMMATURE GRAN % 0.5 % (0.00-0.4); Lymphocyte (Absolute #) 1.38 x10^3/uL (1.0-4.6); Lymphocytes % 16.2 % (24.0-44.0); Mean Cell Volume 99.7 fL (78-100); Mean Corpuscular Hemoglobin 30.1 pg (26-32); Mean Corpuscular Hgb Concent. 30.2 g/dL (32-36); Mean Platelet Volume 8.8 fL (7.5-11.0); Monocyte (Absolute #) 1.31 x10^3/uL (0.0-1.3); Monocytes % 15.4 % (0.0-12.0); Platelet Count 388 x10^3/uL (150-450); Red Blood Count 3.16 x10^6/uL (4.1-5.6); Red Cell Distribution Width 13.9 % (11.5-14.0); White Blood Count 8.5 x10^3/uL (4.0-10.5)
[2022-10-31 07:00] LABS: ANION GAP 2.4 MEQ/L (5-15); Creatinine 1 1.35 mg/dL (0.66-1.25); EST GLOMERULAR FILTRATION RATE 53.3 ML/MIN
[2022-10-31] MEDS: IMODIUM 2 MG PO PRN ×2 (10:05→22:09)
[2022-10-31] MEDS: Lopressor 25MG Tab PO SCH ×2 (10:06→21:51)
[2022-10-31] MEDS: Lopressor 50 MG PO SCH ×2 (10:06→21:51)
[2022-10-31] MEDS: TIMOPTIC 0.5% 5 ML OPHTHALMIC OP SCH ×2 (10:07→21:51)
[2022-10-31] MEDS ORDERED: BENTYL 20 MG PO ONE ×2 (13:59→20:00)
[2022-10-31] MEDS ORDERED: ROCEPHIN 1 Gm-D5w 50 ml Bag** 1 G/50 ML IVPB IV SCH (22:00)
[2022-11-01] MEDS: FLAGYL 500 MG IVPB 500 MG/100 ML BAG IV SCH ×3 (05:06→17:34)
[2022-11-01] MEDS: Lopressor 25MG Tab PO SCH ×2 (08:35→22:48)
[2022-11-01] MEDS: Klor Con PO SCH ×2 (08:36→22:48)
[2022-11-01] MEDS: Lopressor 50 MG PO SCH ×2 (08:36→22:49)
[2022-11-01] MEDS: CLONIDINE 0.1 MG TABLET PO SCH ×3 (08:36→22:48)
[2022-11-01] MEDS: TIMOPTIC 0.5% 5 ML OPHTHALMIC OP SCH ×2 (08:37→22:49)
[2022-11-01] MEDS: Lasix 40 MG PO SCH ×2 (08:37→16:07)
[2022-11-01] MEDS: IMODIUM 2 MG PO PRN (10:58)
--- NOTE | 2022-11-01 11:55 | PCM.NOTE ---
Date and Time: 10/31/22 Subjective Assessment: Patient of Dr Leavitt was admitted by Telehospitalist from ER with diarrhea. His P C.diff was negative. Diarrhea is voluminous with mucus and last bout after eating biscuits and gravy had no melena or red blood per Aid but did test positive heme positive from earlier sample. states ptn has bladder cancer and is to have biopsy at [facility] this coming Wednesday and would like patient transferred to [facility] .Dr Hdez is the treating Oncologist. [facility] did accept patient but no bed available. Objective Exam General Appearance: no apparent distress Neurologic Exam: alert (oriented to person and place) Skin Exam: normal color, warm, dry Neck Exam: normal inspection Respiratory Exam: normal breath sounds Cardiovascular Exam: regular rate/rhythm Gastrointestinal/Abdomen Exam: soft (increased BS nontender) Extremity Exam: normal inspection OBJECTIVE DATA Vital Signs: Vital Signs - 24 hr Temp Pulse Resp BP Pulse Ox 11/01/22 11:47 97.5 F 62 16 121/58 11/01/22 08:00 16 11/01/22 06:46 97.5 F 63 16 128/60 94 L 11/01/22 04:00 97.9 F 75 16 121/79 96 11/01/22 00:00 98.0 F 65 16 107/54 92 L 10/31/22 20:00 98.0 F 70 16 147/66 96 10/31/22 16:00 97.8 F 74 18 140/66 91 L 10/31/22 12:00 18 10/31/22 11:59 98.0 F 71 18 110/54 93 L Pain Assessment - Last Documented Pain Intensity 0 Pain Scale Used 0-10 Pain Scale Intake and Output: Intake & Output 10/29/22 10/30/22 10/31/22 11/01/22 11:59 11:59 11:59 11:59 Intake Total 1123 2577 Balance 1123 2577 Weight 82.9 kg Lab Results: Lab Results-Last 24 Hours 10/30/22 Range/Units 16:40 Carcinoembryonic Ag 4.5 (0.0-4.7) ng/mL Radiology Exams: Radiology Procedures Category Date Time Status ABDOMEN AND PELVIS W CONTRAST [CT] Stat Exams 10/30/22 15:48 Completed CHEST 1 VIEW (PORTABLE) Stat Exams 10/30/22 15:47 Completed Assessment/Plan (1) Diarrhea Current Visit: Yes Status: Acute Qualifiers: Diarrhea type: unspecified type Qualified Code(s): R19.7 - Diarrhea, unspecified Assessment & Plan: c.diff neg GI profile pending Code(s): R19.7 - DIARRHEA, UNSPECIFIED (2) Heme + stool Current Visit: Yes Status: Acute Assessment & Plan: follow HGB, Gen Surg consult (3) Bladder cancer Current Visit: Yes Status: Chronic Assessment & Plan: Dr Hdez and Urologist following was on Keytruda but was stopped due to diarrhea per wifr.
--- NOTE | 2022-11-01 12:30 | PCM.NOTE ---
Date and Time: 11/01/22 1227 Subjective Assessment: Patient is awaiting transfer to [facility] for bladder cancer work up. Diarrhea has improved with 1 dose Immodium and bentyl. He had a watery stool with undigested food present. Objective Exam General Appearance: no apparent distress, thin Neurologic Exam: alert Skin Exam: warm, dry, pale Neck Exam: normal inspection Respiratory Exam: other (no wheeze or ronchi or rales) Cardiovascular Exam: regular rate/rhythm Gastrointestinal/Abdomen Exam: soft, other (increased BS no guarding) OBJECTIVE DATA Vital Signs: Vital Signs - 24 hr Temp Pulse Resp BP Pulse Ox 11/01/22 11:47 97.5 F 62 16 121/58 11/01/22 08:00 16 11/01/22 06:46 97.5 F 63 16 128/60 94 L 11/01/22 04:00 97.9 F 75 16 121/79 96 11/01/22 00:00 98.0 F 65 16 107/54 92 L 10/31/22 20:00 98.0 F 70 16 147/66 96 10/31/22 16:00 97.8 F 74 18 140/66 91 L Pain Assessment - Last Documented Pain Intensity 0 Pain Scale Used 0-10 Pain Scale Intake and Output: Intake & Output 10/30/22 10/31/22 11/01/22 11/02/22 11:59 11:59 11:59 11:59 Intake Total 1123 2577 Balance 1123 2577 Weight 82.9 kg Lab Results: Lab Results-Last 24 Hours 10/30/22 Range/Units 16:40 Carcinoembryonic Ag 4.5 (0.0-4.7) ng/mL Radiology Exams: Radiology Procedures Category Date Time Status ABDOMEN AND PELVIS W CONTRAST [CT] Stat Exams 10/30/22 15:48 Completed CHEST 1 VIEW (PORTABLE) Stat Exams 10/30/22 15:47 Completed Assessment/Plan (1) Diarrhea Status: Acute Qualifiers: Diarrhea type: unspecified type Qualified Code(s): R19.7 - Diarrhea, unspecified Code(s): R19.7 - DIARRHEA, UNSPECIFIED (2) Heme + stool Status: Acute (3) Bladder cancer Status: Chronic
[2022-11-01] MEDS: Flomax 0.4 MG PO SCH (22:48)
[2022-11-01] MEDS: zyPREXA 5MG TABLET PO SCH (22:49)
[2022-11-01] MEDS: Ms Contin 15 MG PO SCH (22:49)
[2022-11-01 23:58] VITALS: BP 164/72; PULSE 76; O2SAT 98
--- NOTE | 2022-11-02 08:45 | XRAY ---
Indication: Contusion following fall Multiple contiguous axial images obtained through the head without contrast. Comparison: March 21, 2022 Again age-appropriate global atrophy and mild periventricular degenerative micro-ischemia bilaterally. No acute intracranial hemorrhage, abnormal extra-axial fluid collection, or mass effect. Fourth ventricle is midline without hydrocephalus. Bony calvarium intact. Again complete opacification right maxillary sinus. New near complete opacification right frontal sinus with fluid leveling and minimal opacification right ethmoid sinus. Mastoid air cells are clear. Impression: 1. Worsening paranasal sinus disease. 2. Otherwise grossly stable nonacute senile brain. Comment: Preliminary interpretation made by [facility]. No critical discrepancy.
--- NOTE | 2022-11-02 11:56 | CONS ---
CONSULT DATE: 10/31/2022 HISTORY: The patient was seen for Dr. Hill who was classification officer for our group today. The patient is an 87-year-old who may have had endoscopy a year or two ago. His is not here per nursing. He had some minimal epigastric tenderness. He had some problems with diarrhea. His hemoglobin is in the 9 range. He has not had any gross bloody stools per the nursing staff. PAST MEDICAL HISTORY: The patient is a poor historian. Arrhythmia, hypertension, cataracts, depression, congestive heart failure, bladder cancer. Home oxygen at bedtime. PAST SURGICAL HISTORY: Bilateral hip replacement. Bilateral shoulder replacement. Bladder biopsy. HOME MEDICATIONS: He has been on Eliquis, amiodarone, Sertraline, furosemide, pantoprazole, metoprolol, tamsulosin, clonidine olanzapine, lisinopril, multivitamin, morphine, hydrocodone, ferrous sulfate, hydrocodone, stool softener, Timolol drops, Dorzolamide drops. ALLERGIES: NKDA. FAMILY HISTORY: Negative in regards to this problem. SOCIAL HISTORY: No smoking apparently. REVIEW OF SYSTEMS: Fourteen systems reviewed negative or noncontributory as above and per preadmission questionnaire. PHYSICAL EXAMINATION: GENERAL: A chronically ill gentleman. HEENT: Sclera nonicteric. NECK: No JVD. CHEST: Equal excursion, nonlabored breathing. CVS: Regular rhythm and pulse. ABDOMEN: Soft. No significant tenderness on my exam. EXTREMITIES: No edema. No cyanosis. NEURO: Alert, oriented. PSYCH: Appropriate mood and affect. IMPRESSION: Anemia, some trace hemoccult positive. No gross bloody stools. He is hemodynamically stable. He is mainly having diarrhea with the diarrhea contributing to cause of hemoccult positive is unclear or whether he has been on blood thinners in the past. Either way the patient and his family are not sure they want endoscopy. I need to get his old endoscopy records if they decide they want one while he is here will need to let our office know or let Dr. Hill know who is classification officer for group today. Otherwise with hemoglobin 9.5 then no emergent procedure is necessary at this time. Continue medical management. Will get a hold of his old endoscopy records. If it has not been recent he might benefit from consideration of endoscopy at some point but he is not having any gross blood stools and hemodynamically stable. No emergent procedure necessary. This patient as seen for Dr. Hill who was classification officer for our group today.
[2022-11-03 17:11] LABS: Adenovirus F40/41 Not Detected (Not Detected); Astrovirus Not Detected (Not Detected); Campylobacter Not Detected (Not Detected); Cryptosporidium Not Detected (Not Detected); Cyclospora cayetanensis Not Detected (Not Detected); Entamoeba histolytica Not Detected (Not Detected); Enteroaggregative E coli Not Detected (Not Detected); Enterpathogenic E coli Not Detected (Not Detected); Entertoxigenic E coli Not Detected (Not Detected); Giardia lamblia Not Detected (Not Detected); Norovirus GI/GII Not Detected (Not Detected); Plesiomonas shigelloides Not Detected (Not Detected); Rotavirus A Not Detected (Not Detected); Salmonella Not Detected (Not Detected); Shig-toxin-producing E coli Not Detected (Not Detected); Shigella/Enterinvasive E coli Not Detected (Not Detected); Vibrio Not Detected (Not Detected); Vibrio cholerae Not Detected (Not Detected); Yersinia enterocolitica Not Detected (Not Detected)
[2022-11-03 17:39] LABS: Sapovirus Not Detected (Not Detected)
--- NOTE | 2022-11-20 04:36 | PCM.HP ---
History of Present Illness - Chief Complaint Chief Complaint: Proctocolitis Date: 10/30/22 History of Present Illness: is a 87 year old male.d He presnts with diarrhoea that has been ongoing for days. PAtient takes Keytruda. He reports watery diarrhea without any foul smell. There is increased frequency of stool and decreased consistency of stool. He denies any sick contacts. he reports some fatigue. He dnies lightheadedness and falls. - Review of Systems Constitutional: No Symptoms Medications & Allergies Home Medications: Home Medication List Morphine Sulfate Cr 15 mg [Ms Contin 15 MG] 30 mg PO HS 06/08/20 [History Confirmed 10/30/22] Morphine Sulfate Cr 30 mg [Ms Contin 30 mg] 45 mg PO DAILY 06/08/20 [History Confirmed 10/30/22] Ferrous Sulfate 325 mg PO DAILY 02/20/22 [History Confirmed 10/30/22] Multivitamin [Multi-Vitamin Daily] 1 each PO DAILY 02/20/22 [History Confirmed 10/30/22] Olanzapine 5 mg [zyPREXA 5MG TABLET] 5 mg PO HS 02/20/22 [History Confirmed 10/30/22] Timolol Maleate/Pf [Timolol Maleate 0.5% Eye Drop] 1 each OP BID 02/20/22 [History Confirmed 10/30/22] Docusate Sodium [Stool Softener] 1 tab PO DAILY 05/21/22 [History Confirmed 10/30/22] Dorzolamide HCl/Pf [Dorzolamide 2% Eye Drop] 1 drop BID 05/21/22 [History Confirmed 10/30/22] Amiodarone HCl 200 mg [Cordarone 200 MG] 100 mg PO DAILY 06/02/22 [History Confirmed 10/30/22] Apixaban [Eliquis 5 mg Tablet] 2.5 mg PO BID 06/02/22 [History Confirmed 10/30/22] Clonidine HCl 0.1 mg [Clonidine 0.1 mg Tablet] 0.2 mg PO TID 06/02/22 [History Confirmed 10/30/22] Furosemide 40 mg [Lasix 40 MG] 40 mg PO BID 06/02/22 [History Confirmed 10/30/22] Metoprolol Tartrate 50 mg [Lopressor 50 MG] 75 mg PO BID 06/02/22 [History Confirmed 10/30/22] Potassium Chloride [Klor-Con 10] 1 tab PO BID 06/02/22 [History Confirmed 10/30/22] Sertraline HCl 100 mg PO DAILY 06/02/22 [History Confirmed 10/30/22] Tamsulosin HCl 0.4 mg [Flomax 0.4 MG] 1 cap PO HS 06/02/22 [History Confirmed 10/30/22] Hydrocodone/Acetaminophen [Hydrocodone-Acetamin 10-325 mg] 1 each PO QID 10/30/22 [History Confirmed 10/30/22] Lisinopril 10 mg [Zestril 10 MG] 20 mg PO DAILY 10/30/22 [History Confirmed 10/30/22] Pantoprazole 20 mg [Protonix 20MG Tablet] 40 mg PO DAILY 10/30/22 [History Confirmed 10/30/22] Allergies/Adverse Reactions: Allergies Allergy/AdvReac Type Severity Reaction Status Date / Time No Known Allergies Allergy Verified 10/30/22 22:26 - Past Medical History Past Medical History: Yes Neurological History: No Pertinent History ENT History: Cataracts Cardiac History: Arrhythmia, Hypertension Respiratory History: CHF Endocrine Medical History: No Pertinent History Musculoskelatal History: Arthritis GI Medical History: Other History: Bladder Cancer Pyscho-Social History: Depression Male Reproductive Disorders: No Pertinent History Comment: bladder cancer 2011. home oxygen at bedtime - Past Surgical History Past Surgical History: Yes Neuro Surgical History: No Pertinent History Cardiac History: No Pertinent History Respiratory Surgery: No Pertinent History GI Surgical History: Other Genitourinary Surgical Hx: Other Musculskeletal Surgical Hx: Orthopedic Surgery Male Surgical History: No Pertinent History Other Surgical History: Bilateral hip replacement, Bilateral shoulder replacement, bladder biopsy - Social History Smoking Status: Never smoker Exposure to second hand smoke: No Alcohol: None Drug Use: none - Physical Exam General Appearance: no apparent distress Neurologic Exam: alert, oriented x 3, cooperative Neck Exam: normal inspection Respiratory Exam: normal breath sounds, lungs clear Cardiovascular Exam: regular rate/rhythm, normal heart sounds Gastrointestinal/Abdomen Exam: soft, normal bowel sounds Extremity Exam: normal inspection Skin Exam: normal color Results - Labs Lab/Micro Results: Microbiology 10/30/22 16:30 Blood Culture Gram Stain - Final Blood Not Reportable Blood Culture - Final NO GROWTH 10/30/22 16:28 Blood Culture Gram Stain - Final Blood Not Reportable Blood Culture - Final NO GROWTH Assessment/Plan (1) DAWNA (acute kidney injury) Status: Acute Assessment & Plan: related to prerenal state from diarrhoea, will hydrate with IV fluids Code(s): N17.9 - ACUTE KIDNEY FAILURE, UNSPECIFIED (2) Atrial fibrillation with rapid ventricular response Status: Acute Assessment & Plan: continue anticoagulationfor stroke prophylaxis Code(s): I48.91 - UNSPECIFIED ATRIAL FIBRILLATION (3) Dehydration Status: Acute Assessment & Plan: secondary to diarrhoea, will hydrate with IV fluids, will check orthostatis Code(s): E86.0 - DEHYDRATION (4) Diarrhea Status: Acute Qualifiers: Diarrhea type: unspecified type Qualified Code(s): R19.7 - Diarrhea, unspecified Assessment & Plan: IV hydration, conservative management, CDIFF negative, no findings concerning fo infections at this time Code(s): R19.7 - DIARRHEA, UNSPECIFIED Telemedicine Encounter - Telemedicine Encounter Telemedicine Encounter: The entirety of this encounter was performed via Telemedicine"
--- NOTE | 2022-11-25 13:56 | PCM.DS ---
Discharge Summary Date of Admission: 10/30/22 21:56 Date of Discharge: 11/02/22 at 0400 Admitting Physician: SARAH BUNDY MD Consults: Consults on Case 10/31/22 09:26 Consult Surgery ROUTINE Primary Care Provider: MANJIT MALDONADO BRANDON Allergies Allergies No Known Allergies Allergy (Verified 10/30/22 22:26) Hospital Summary - Hospital Course Hospital Course: see 11/01/22 progress note. Patient was to be discharged 11/01/22 to [facility] but the EMS was delayed and then patient fell without injury just prior to discharge(he was reaching to get something off of the floor) finally he was transfered to [facility] with Hospitalist accepting and Oncologist , Dr Hdez will consult/manage his bladder cancer workup. - Vitals & Intake/Output Vital Signs: Vital Signs Temperature 97.5 F 11/01/22 23:58 Pulse Rate 76 11/01/22 23:58 Respiratory Rate 19 11/01/22 23:58 Blood Pressure 164/72 11/01/22 23:58 O2 Sat by Pulse Oximetry 98 11/01/22 23:58 - Lab Result Diagrams: 10/31/22 05:30 10/31/22 05:30 Micro Results-Entire Visit: Microbiology 10/30/22 16:30 Blood Culture Gram Stain - Final Blood Not Reportable Blood Culture - Final NO GROWTH 10/30/22 16:28 Blood Culture Gram Stain - Final Blood Not Reportable Blood Culture - Final NO GROWTH Discharge Exam General Appearance: other (see exam 11/01/22) Final Diagnosis/Problem List - Final Discharge Diagnosis/Problem (1) Diarrhea Status: Acute Code(s): R19.7 - DIARRHEA, UNSPECIFIED (2) Heme + stool Status: Acute (3) Bladder cancer Status: Chronic - Discharge Disposition: DC TO [facility] Condition: Stable Prescriptions: No Action Morphine Sulfate Cr 15 mg [Ms Contin 15 MG] 30 mg PO HS Morphine Sulfate Cr 30 mg [Ms Contin 30 mg] 45 mg PO DAILY Multivitamin [Multi-Vitamin Daily] 1 each PO DAILY Ferrous Sulfate 325 mg PO DAILY Olanzapine 5 mg [zyPREXA 5MG TABLET] 5 mg PO HS Timolol Maleate/Pf [Timolol Maleate 0.5% Eye Drop] 1 each OP BID Dorzolamide HCl/Pf [Dorzolamide 2% Eye Drop] 1 drop BID Docusate Sodium [Stool Softener] 1 tab PO DAILY Sertraline HCl 100 mg PO DAILY Amiodarone HCl 200 mg [Cordarone 200 MG] 100 mg PO DAILY Apixaban [Eliquis 5 mg Tablet] 2.5 mg PO BID Furosemide 40 mg [Lasix 40 MG] 40 mg PO BID Clonidine HCl 0.1 mg [Clonidine 0.1 mg Tablet] 0.2 mg PO TID Potassium Chloride [Klor-Con 10] 1 tab PO BID Metoprolol Tartrate 50 mg [Lopressor 50 MG] 75 mg PO BID Tamsulosin HCl 0.4 mg [Flomax 0.4 MG] 1 cap PO HS Pantoprazole 20 mg [Protonix 20MG Tablet] 40 mg PO DAILY Lisinopril 10 mg [Zestril 10 MG] 20 mg PO DAILY Hydrocodone/Acetaminophen [Hydrocodone-Acetamin 10-325 mg] 1 each PO QID Additional Instructions: Dr Hdez ,Oncologist managing Bladder cancer Treatment Follow up with: MANJIT MALDONADO MD [Primary Care Provider] -
== END 2022-11-02 00:05 | disposition home or self-care (01) ==
LOC: ED 13:27 → MED SURG 21:56
PROVIDERS: ADMIT Internal Medicine; ATTEND Family Medicine
DX: R19.7 Diarrhea, unspecified (principal); K92.1 Melena; I10 Essential (primary) hypertension; D64.9 Anemia, unspecified; Z85.51 Personal history of malignant neoplasm of bladder; Z79.01 Long term (current) use of anticoagulants; Z79.899 Other long term (current) drug therapy; Z20.828 Contact with and (suspected) exposure to other viral communicable diseases
CPT/HCPCS: 0241U; 36000; 36415; 70450; 71045; 74177; 80048; 80053; 81001; 82274; 82378; 82607; 82746; 83605; 83690; 84484; 85025; 85610; 87040; 87493; 87507; 93005; 96360; 96365; 96367; 96374; 96375; 99284; G0378; J0696; J2270; A9270-GY; G0328

== ENCOUNTER 2022-12-02 18:38 | Observation (INO) | payer MEDICARE ==
--- NOTE | 2022-12-02 19:56 | ERPHSYRPT ---
- History of Present Illness Time Seen by Provider: 12/02/22 19:45 Source: patient Physician History: Patient is a 87-year-old male presents to our ED with his for evaluation of confusion generalized weakness failure to thrive. Patient was recently released from [facility] rehab. At that time patient had a indwelling Anderson catheter. feels patient was discharged prematurely as he was feeling weak at the time he was discharged however states his symptoms have progressed. Decreased p.o. Patient sleeping for longer period throughout the day. Patient states he feels weak. No fever. No trauma. No nausea vomiting no diarrhea. No rash. Patient denies pain. He voices no other complaints or concerns at this time. Portions of this note were created with voice recognition technology. There may be grammatical, spelling, punctuation or sound alike errors Timing/Duration: today Severity: moderate Allergies/Adverse Reactions: No Known Allergies Allergy (Verified 10/30/22 22:26) Home Medications: Morphine Sulfate Cr 30 mg [Ms Contin 30 mg] 45 mg PO DAILY 06/08/20 [History] Ferrous Sulfate 325 mg PO DAILY 02/20/22 [History] Multivitamin [Multi-Vitamin Daily] 1 each PO DAILY 02/20/22 [History] Olanzapine 5 mg [zyPREXA 5MG TABLET] 5 mg PO HS 02/20/22 [History] Dorzolamide HCl/Pf [Dorzolamide 2% Eye Drop] 1 drop BID 05/21/22 [History] Amiodarone HCl 200 mg [Cordarone 200 MG] 100 mg PO DAILY 06/02/22 [History] Apixaban [Eliquis 5 mg Tablet] 2.5 mg PO BID 06/02/22 [History] Clonidine HCl 0.1 mg [Clonidine 0.1 mg Tablet] 0.2 mg PO TID 06/02/22 [History] Furosemide 40 mg [Lasix 40 MG] 40 mg PO BID 06/02/22 [History] Metoprolol Tartrate 50 mg [Lopressor 50 MG] 75 mg PO BID 06/02/22 [History] Potassium Chloride [Klor-Con 10] 1 tab PO BID 06/02/22 [History] Sertraline HCl 100 mg PO DAILY 06/02/22 [History] Tamsulosin HCl 0.4 mg [Flomax 0.4 MG] 1 cap PO HS 06/02/22 [History] Hydrocodone/Acetaminophen [Hydrocodone-Acetamin 10-325 mg] 1 each PO QID 10/30/22 [History] Lisinopril 10 mg [Zestril 10 MG] 10 mg PO DAILY 10/30/22 [History] Albuterol Sulfate [Proair Respiclick] 90 mcg IH 12/02/22 [History] Hydroxyzine HCl 25 mg [Atarax 25 mg] 50 mg PO PRN 12/02/22 [History] Magnesium Oxide 400 mg [Mag-Ox 400] 1 tab PO DAILY 12/02/22 [History] Quetiapine Fumarate 25 mg [Seroquel 25 MG] 25 mg PO HS 12/02/22 [History] Sulfamethoxazole/Trimethoprim [Bactrim Ds Tablet] 1 each PO BID 12/02/22 [Hi story] Hx Tetanus, Diphtheria Vaccination/Date Given: No Hx Influenza Vaccination/Date Given: No Hx Pneumococcal Vaccination/Date Given: No Travel Risk - Vaccine Status Have you recieved a Covid-19 vaccination: No - Review of Systems Constitutional: No Symptoms, No Fever, No Chills Eyes: No Symptoms Ears, Nose, & Throat: No Symptoms Respiratory: No Symptoms, No Cough, No Dyspnea Cardiac: No Symptoms, No Chest Pain, No Edema, No Syncope Abdominal/Gastrointestinal: No Symptoms, No Abdominal Pain, No Nausea, No Vomiting, No Diarrhea Genitourinary Symptoms: No Symptoms, No Dysuria Musculoskeletal: No Symptoms, No Back Pain, No Neck Pain Skin: No Symptoms, No Rash Neurological: No Symptoms, No Dizziness, No Focal Weakness, No Sensory Changes Psychological: No Symptoms Endocrine: No Symptoms Hematologic/Lymphatic: No Symptoms Immunological/Allergic: No Symptoms All Other Systems: Reviewed and Negative - Past Medical History Pertinent Past Medical History: Yes Neurological History: No Pertinent History ENT History: Cataracts Cardiac History: Arrhythmia, Hypertension Respiratory History: CHF Endocrine Medical History: No Pertinent History Musculoskeletal History: Arthritis GI Medical History: Other History: Bladder Cancer Psycho-Social History: Depression Male Reproductive Disorders: No Pertinent History Other Medical History: bladder cancer 2012. home oxygen at bedtime - Past Surgical History Past Surgical History: Yes Neuro Surgical History: No Pertinent History Cardiac: No Pertinent History Respiratory: No Pertinent History Gastrointestinal: Other Genitourinary: Other Musculoskeletal: Orthopedic Surgery Male Surgical History: No Pertinent History Other Surgical History: Bilateral hip replacement, Bilateral shoulder replacement, bladder biopsy - Social History Smoking Status: Never smoker Exposure to second hand smoke: No Drug Use: none Patient Lives Alone: No - Nursing Vital Signs Nursing Vital Signs: Initial Vital Signs Temperature 97.8 F 12/02/22 19:24 Pulse Rate 53 L 12/02/22 19:24 Respiratory Rate 20 12/02/22 19:24 Blood Pressure 98/56 12/02/22 19:24 O2 Sat by Pulse Oximetry 89 L 12/02/22 19:24 Pain Scale Pain Intensity 0 - Physical Exam General Appearance: no apparent distress, alert Eye Exam: PERRL/EOMI, eyes nml inspection Ears, Nose, Throat Exam: normal ENT inspection, TMs normal, pharynx normal, moist mucous membranes Neck Exam: normal inspection, non-tender, supple, full range of motion Respiratory Exam: normal breath sounds, lungs clear, No respiratory distress Cardiovascular Exam: regular rate/rhythm, normal heart sounds, normal peripheral pulses Gastrointestinal/Abdomen Exam: soft, normal bowel sounds, No tenderness, No mass Back Exam: normal inspection, normal range of motion, No CVA tenderness, No vertebral tenderness Extremity Exam: normal inspection, normal range of motion, pelvis stable, pedal edema (Bilateral lower extremity 2+ pitting edema, negative Homans' sign,) Neurologic Exam: alert, oriented x 3, cooperative, normal mood/affect, nml cerebellar function, nml station & gait, sensation nml, No motor deficits Skin Exam: normal color, warm, dry, No rash Lymphatic Exam: No adenopathy SpO2 Interpretation: normal SpO2: 89 O2 Delivery: Room Air - Course Nursing assessment & vital signs reviewed: Yes EKG Interpreted by Me: RATE (66), Sinus Rhythm, NORMAL AXIS, NORMAL INTERVALS - Radiology Exams Chest X-ray Interpretation: Interpreted by me (Minimal bibasilar atelectasis no in filtrate no consolidation normal cardiac silhouette osteopenia. Intact bony thorax) - CT Exams Head CT Interpretation: Tele-radiologist Report (Senile brain. No acute findings. No acute intracranial pathology) Ordered Tests: Active Orders 24 hr Category Date Time Status Potato Loader STAT Care 12/02/22 19:41 Active EKG-ER Only STAT Care 12/02/22 19:40 Active IV Insertion STAT Care 12/02/22 19:40 Active Pulse Oximetry (ED) STAT Care 12/02/22 19:40 Active CHEST 1 VIEW (PORTABLE) Stat Exams 12/02/22 19:41 Taken HEAD WITHOUT CONTRAST [CT] Stat Exams 12/02/22 20:01 Taken CBC W DIFF Stat Lab 12/02/22 20:17 Completed CMP Stat Lab 12/02/22 20:17 Completed CULTURE,URINE Stat Lab 12/02/22 20:11 Received MAGNESIUM Stat Lab 12/02/22 20:17 Completed NT PRO BNPII Stat Lab 12/02/22 20:17 Completed TROPONIN Q4H Lab 12/02/22 20:17 Completed TROPONIN Q4H Lab 12/02/22 23:45 Ordered TROPONIN Q4H Lab 12/03/22 03:45 Ordered UA W/RFX UR CULTURE Stat Lab 12/02/22 20:11 Completed Lab/Rad Data: Laboratory Result Diagrams 12/02/22 20:17 12/02/22 20:17 Laboratory Results 12/02/22 12/02/22 12/02/22 Range/Units 20:17 20:17 20:17 WBC 17.6 H (4.0-10.5) x10^3/uL RBC 3.52 L (4.1-5.6) x10^6/uL Hgb 10.9 L (12.5-18.0) g/dL Hct 35.5 L (42-50) % MCV 100.9 H (78-100) fL MCH 31.0 (26-32) pg MCHC 30.7 L (32-36) g/dL RDW 16.2 H (11.5-14.0) % Plt Count 306 (150-450) x10^3/uL MPV 9.0 (7.5-11.0) fL Gran % 84.2 H (36.0-66.0) % Immature Gran % (Auto) 0.6 H (0.00-0.4) % Nucleat RBC Rel Count 0.0 (0.00-0.1) % Eos # (Auto) 0.29 (0-0.5) x10^3/uL Immature Gran # (Auto) 0.10 H (0.00-0.03) x10^3u/L Absolute Lymphs (auto) 1.12 (1.0-4.6) x10^3/uL Absolute Monos (auto) 1.26 (0.0-1.3) x10^3/uL Absolute Nucleated RBC 0.00 (0.00-0.01) x10^3u/L Lymphocytes % 6.4 L (24.0-44.0) % Monocytes % 7.1 (0.0-12.0) % Eosinophils % 1.6 (0.00-5.0) % Basophils % 0.1 (0.0-0.4) % Absolute Granulocytes 14.84 H (1.4-6.9) x10^3/uL Basophils # 0.02 (0-0.4) x10^3/uL Sodium 138 (137-145) mmol/L Potassium 4.3 (3.5-5.1) mmol/L Chloride 98 (98-107) mmol/L Carbon Dioxide 37 H (22-30) mmol/L Anion Gap 7.5 (5-15) MEQ/L BUN 18 (9-20) mg/dL Creatinine 1.77 H (0.66-1.25) mg/dL Estimated GFR 39.0 ML/MIN Glucose 110 H (74-106) mg/dL Calcium 7.5 L (8.4-10.2) mg/dL Magnesium 1.8 (1.6-2.3) mg/dL Total Bilirubin 0.60 (0.2-1.3) mg/dL AST 37 (17-59) U/L ALT 26 (0-50) U/L Alkaline Phosphatase 151 H (38-126) U/L Troponin I < 0.012 (0.000-0.034) ng/mL NT-Pro-B Natriuret Pep 7030 (<300) pg/mL Serum Total Protein 5.7 L (6.3-8.2) g/dL Albumin 2.5 L (3.5-5.0) g/dL Urine Color (Yellow) Urine Appearance (Clear) Urine pH (4.6-8.0) Ur Specific Wells (1.005-1.030) Urine Protein (Negative) Urine Glucose (UA) (Negative) mg/dL Urine Ketones (Negative) Urine Blood (Negative) Urine Nitrite (Negative) Urine Bilirubin (Negative) Urine Urobilinogen (0.2) mg/dL Ur Leukocyte Esterase (Negative) U Hyaline Cast (Auto) (0-2) /LPF Urine Microscopic RBC (0-5) /HPF Urine Microscopic WBC (0-5) /HPF Ur Epithelial Cells (None Seen) /HPF Urine Bacteria (None Seen) /HPF Urine Culture Reflexed (NO) 12/02/22 Range/Units 20:11 WBC (4.0-10.5) x10^3/uL RBC (4.1-5.6) x10^6/uL Hgb (12.5-18.0) g/dL Hct (42-50) % MCV (78-100) fL MCH (26-32) pg MCHC (32-36) g/dL RDW (11.5-14.0) % Plt Count (150-450) x10^3/uL MPV (7.5-11.0) fL Gran % (36.0-66.0) % Immature Gran % (Auto) (0.00-0.4) % Nucleat RBC Rel Count (0.00-0.1) % Eos # (Auto) (0-0.5) x10^3/uL Immature Gran # (Auto) (0.00-0.03) x10^3u/L Absolute Lymphs (auto) (1.0-4.6) x10^3/uL Absolute Monos (auto) (0.0-1.3) x10^3/uL Absolute Nucleated RBC (0.00-0.01) x10^3u/L Lymphocytes % (24.0-44.0) % Monocytes % (0.0-12.0) % Eosinophils % (0.00-5.0) % Basophils % (0.0-0.4) % Absolute Granulocytes (1.4-6.9) x10^3/uL Basophils # (0-0.4) x10^3/uL Sodium (137-145) mmol/L Potassium (3.5-5.1) mmol/L Chloride (98-107) mmol/L Carbon Dioxide (22-30) mmol/L Anion Gap (5-15) MEQ/L BUN (9-20) mg/dL Creatinine (0.66-1.25) mg/dL Estimated GFR ML/MIN Glucose (74-106) mg/dL Calcium (8.4-10.2) mg/dL Magnesium (1.6-2.3) mg/dL Total Bilirubin (0.2-1.3) mg/dL AST (17-59) U/L ALT (0-50) U/L Alkaline Phosphatase (38-126) U/L Troponin I (0.000-0.034) ng/mL NT-Pro-B Natriuret Pep (<300) pg/mL Serum Total Protein (6.3-8.2) g/dL Albumin (3.5-5.0) g/dL Urine Color Dark Yellow (Yellow) Urine Appearance Cloudy A (Clear) Urine pH 5.5 (4.6-8.0) Ur Specific Wells 1.015 (1.005-1.030) Urine Protein 30 (Negative) Urine Glucose (UA) Negative (Negative) mg/dL Urine Ketones Negative (Negative) Urine Blood Small A (Negative) Urine Nitrite Negative (Negative) Urine Bilirubin Negative (Negative) Urine Urobilinogen 0.2 (0.2) mg/dL Ur Leukocyte Esterase Large A (Negative) U Hyaline Cast (Auto) 26-50 A (0-2) /LPF Urine Microscopic RBC 0-2 (0-5) /HPF Urine Microscopic WBC >100 A (0-5) /HPF Ur Epithelial Cells Rare (None Seen) /HPF Urine Bacteria Few A (None Seen) /HPF Urine Culture Reflexed YES (NO) - Progress Progress: improved Progress Note: Case discussed with hospitalist Dr. Cesar who accepts admission to observation. Plan of care discussed with patient. He agrees to admission [facility] for further evaluation and treatment. Portions of this note were created with voice recognition technology. There may be grammatical, spelling, punctuation or sound alike errors Patient is an 87-year-old male presents to our ED for evaluation of lethargy generalized weakness failure to thrive. Symptoms started after he was discharged from long-term. At that time patient had indwelling Anderson catheter that was subsequently removed. Most of the information provided to me by patient's . CBC reveals a leukocytosis of 17.6. Patient has a macrocytic anemia of 10.9. CMP reveals a elevated creatinine of 1.77. Previous creatinine was 0.89. It appears patient has had decreased p.o. and likely experiencing acute renal injury. Hypocalcemia observed at 7.5. Hypoalbuminemia 2.5. Vital stable. Levaquin initiated. 12/02/22 21:13 Complexity of problem addressed is moderate acute with systemic illness. No critical care time Complexity of data reviewed and analyzed is extensive. Patient's served as independent historian. Test ordered and test independently reviewed and analyzed by Dr. Atkinson including EKG and chest x-ray. Management discussed with who accepts admission to observation. Risk of complication and or risk of morbidity/mortality of patient management is high. Patient will require hospitalization for further evaluation and treatment. Patient received IV antibiotics to initiate management of urinary tract infection. Patient agrees to admission [facility] for further evaluation and treatment. Vital stable. Admitting diagnosis is a urinary tract infection with a leukocytosis, generalized weakness delirium acute renal injury, urinary retention Portions of this note were created with voice recognition technology. There may be grammatical, spelling, punctuation or sound alike errors 12/02/22 21:17 Anderson catheter placed in our ED. We were able to express 500 cc immediately. Urine was dark in color. 12/02/22 21:20 12/02/22 21:21 Counseled pt/family regarding: lab results, diagnosis, rad results - Departure Departure Disposition: Observation Clinical Impression: Elevated brain natriuretic peptide (BNP) level, Urinary tract infection, Confusion, Generalized weakness, Leukocytosis, Macrocytic anemia, Acute renal injury, Hypocalcemia, Hypoalbuminemia, Urinary retention, Delirium Condition: Stable Critical Care Time: No Referrals: MANJIT MALDONADO MD [Primary Care Provider] - Follow up/PCP as directed
[2022-12-02 20:21] LABS: Absolute Neutrophil Ct (ANC) 14.84 x10^3/uL (1.4-6.9); BASOPHIL % 0.1 % (0.0-0.4); Basophil (Absolute #) 0.02 x10^3/uL (0-0.4); Eosinophil % 1.6 % (0.00-5.0); Eosinophil (Absolute #) 0.29 x10^3/uL (0-0.5); Hematocrit 35.5 % (42-50); Hemoglobin 10.9 g/dL (12.5-18.0); IMMATURE GRAN % 0.6 % (0.00-0.4); Lymphocyte (Absolute #) 1.12 x10^3/uL (1.0-4.6); Lymphocytes % 6.4 % (24.0-44.0); Mean Cell Volume 100.9 fL (78-100); Mean Corpuscular Hgb Concent. 30.7 g/dL (32-36); Monocyte (Absolute #) 1.26 x10^3/uL (0.0-1.3); Monocytes % 7.1 % (0.0-12.0); Neutrophil % 84.2 % (36.0-66.0); Platelet Count 306 x10^3/uL (150-450); Red Blood Count 3.52 x10^6/uL (4.1-5.6); Red Cell Distribution Width 16.2 % (11.5-14.0); White Blood Count 17.6 x10^3/uL (4.0-10.5)
[2022-12-02 20:31] LABS: Appearance Cloudy (Clear); Bacteria Few /HPF (None Seen); Bilirubin Negative (Negative); Blood Small (Negative); Epithelial Cells Rare /HPF (None Seen); Glucose, Urine Negative (Negative); Ketones Negative (Negative); Leukocyte Esterase Large (Negative); Nitrite Negative (Negative); Ph 5.5 (4.6-8.0); Protein,Urine Dip 30 (Negative); RBC 0-2 /HPF (0-5); Specific Gravity 1.015 (1.005-1.030); Urobilinogen 0.2 mg/dL (0.2); WBC >100 /HPF (0-5)
[2022-12-02 20:32] LABS: ADD URINE CULTURE? YES (NO); Hyaline Casts 26-50 /LPF (0-2)
[2022-12-02 20:33] LABS: ALBUMIN 2.5 g/dL (3.5-5.0); ANION GAP 7.5 MEQ/L (5-15); BILIRUBIN,TOTAL 0.6 mg/dL (0.2-1.3); Calcium 7.5 mg/dL (8.4-10.2); Creatinine 1 1.77 mg/dL (0.66-1.25); MAGNESIUM 1.8 mg/dL (1.6-2.3); Potassium 4.3 mmol/L (3.5-5.1); Total Protein 5.7 g/dL (6.3-8.2)
[2022-12-02 20:52] LABS: NT PRO BNPII 7030 pg/mL (<300); TROPONIN < 0.012 ng/mL (0.000-0.034)
[2022-12-02] MEDS ORDERED: Levofloxacin 500MG/100ML D5W 500 MG/100 ML BAG IV STA (21:16)
[2022-12-02] MEDS ORDERED: Levofloxacin 500MG/100ML D5W 500 MG/100 ML BAG IV ONE (21:25)
[2022-12-02 22:00] LABS: INFLUENZA A NEGATIVE (NEGATIVE); INFLUENZA B NEGATIVE (NEGATIVE); RESPIRATORY SYNCTIAL VIRUS NEGATIVE (NEGATIVE); SARS-CoV-2 Xpert Express NEGATIVE (NEGATIVE)
[2022-12-03] MEDS ORDERED: Sodium Chloride 0.9% 500 ML 500 ML IV ONE ×2 (01:57→01:59)
[2022-12-03 04:14] LABS: ALBUMIN 1.8 g/dL (3.5-5.0); ANION GAP 2.6 MEQ/L (5-15); BILIRUBIN,TOTAL 0.5 mg/dL (0.2-1.3); Calcium 6.9 mg/dL (8.4-10.2); Creatinine 1 1.79 mg/dL (0.66-1.25); EST GLOMERULAR FILTRATION RATE 38.5 ML/MIN; Potassium 3.9 mmol/L (3.5-5.1); Total Protein 4.4 g/dL (6.3-8.2)
--- NOTE | 2022-12-03 07:07 | PCM.HP ---
History of Present Illness - Chief Complaint Chief Complaint: UTI, Leukocytosis Date: 12/02/22 History of Present Illness: is a 87 year old male. 87 yo male patient who is admitted with confusion and weakness from rehab. Confusion is improved for me at bedside. Patient has had recurrent UTIs in the past. He had some chills. Continues to feel a little week. Work up in the ED demonstrated UA consistent with UTI and leukocytosis. No systemic toxic signs. Also with DAWNA with Cr up to 1.7 from baseline normal. Patient without nausea or vomiting - able to tolerate PO. No back pain. Medications & Allergies Home Medications: Home Medication List Morphine Sulfate Cr 30 mg [Ms Contin 30 mg] 45 mg PO DAILY 06/08/20 [History Confirmed 12/02/22] Ferrous Sulfate 325 mg PO DAILY 02/20/22 [History Confirmed 12/02/22] Multivitamin [Multi-Vitamin Daily] 1 each PO DAILY 02/20/22 [History Confirmed 12/02/22] Olanzapine 5 mg [zyPREXA 5MG TABLET] 5 mg PO HS 02/20/22 [History Confirmed 12/02/22] Dorzolamide HCl/Pf [Dorzolamide 2% Eye Drop] 1 drop BID 05/21/22 [History Confirmed 12/02/22] Amiodarone HCl 200 mg [Cordarone 200 MG] 100 mg PO DAILY 06/02/22 [History Confirmed 12/02/22] Apixaban [Eliquis 5 mg Tablet] 2.5 mg PO BID 06/02/22 [History Confirmed 12/02/22] Clonidine HCl 0.1 mg [Clonidine 0.1 mg Tablet] 0.2 mg PO TID 06/02/22 [History Confirmed 12/02/22] Furosemide 40 mg [Lasix 40 MG] 40 mg PO BID 06/02/22 [History Confirmed 12/02/22] Metoprolol Tartrate 50 mg [Lopressor 50 MG] 75 mg PO BID 06/02/22 [History Confirmed 12/02/22] Potassium Chloride [Klor-Con 10] 1 tab PO BID 06/02/22 [History Confirmed 12/02/22] Sertraline HCl 100 mg PO DAILY 06/02/22 [History Confirmed 12/02/22] Tamsulosin HCl 0.4 mg [Flomax 0.4 MG] 1 cap PO HS 06/02/22 [History Confirmed 12/02/22] Hydrocodone/Acetaminophen [Hydrocodone-Acetamin 10-325 mg] 1 each PO QID 10/30/22 [History Confirmed 12/02/22] Lisinopril 10 mg [Zestril 10 MG] 10 mg PO DAILY 10/30/22 [History Confirmed 12/02/22] Albuterol Sulfate [Proair Respiclick] 90 mcg IH 12/02/22 [History] Hydroxyzine HCl 25 mg [Atarax 25 mg] 50 mg PO PRN 12/02/22 [History] Magnesium Oxide 400 mg [Mag-Ox 400] 1 tab PO DAILY 12/02/22 [History Confirmed 12/02/22] Quetiapine Fumarate 25 mg [Seroquel 25 MG] 25 mg PO HS 12/02/22 [History Confirmed 12/02/22] Sulfamethoxazole/Trimethoprim [Bactrim Ds Tablet] 1 each PO BID 12/02/22 [History Confirmed 12/02/22] Omeprazole 20 mg PO DAILY 12/03/22 [History Confirmed 12/03/22] Allergies/Adverse Reactions: Allergies Allergy/AdvReac Type Severity Reaction Status Date / Time No Known Allergies Allergy Verified 10/30/22 22:26 - Past Medical History Past Medical History: Yes Neurological History: Migraines ENT History: Cataracts Cardiac History: Arrhythmia, Congestive Heart Failure, Hypertension Respiratory History: CHF Endocrine Medical History: No Pertinent History Musculoskelatal History: Arthritis GI Medical History: Ulcer, Other History: Bladder Cancer Pyscho-Social History: Depression Male Reproductive Disorders: No Pertinent History Comment: bladder cancer 2011. home oxygen at bedtime, migraines in the past, - Past Surgical History Past Surgical History: Yes Neuro Surgical History: No Pertinent History Cardiac History: No Pertinent History Respiratory Surgery: No Pertinent History GI Surgical History: Other Genitourinary Surgical Hx: Other Musculskeletal Surgical Hx: Orthopedic Surgery Male Surgical History: No Pertinent History Other Surgical History: Bilateral hip replacement, Bilateral shoulder replacement, bladder biopsy - Social History Smoking Status: Never smoker Exposure to second hand smoke: No Alcohol: None Drug Use: none - Physical Exam Vital Signs: Vital Signs - 24 hr Temp Pulse Resp BP BP Pulse Ox 12/03/22 04:00 70 16 12/03/22 03:55 62 16 97 12/03/22 00:11 97.3 F 68 16 143/65 97 12/02/22 23:36 97 12/02/22 22:19 90/54 12/02/22 22:04 62 12 87/54 98 12/02/22 21:22 89 L 12/02/22 21:04 69 16 116/51 98 12/02/22 20:08 65 14 101/56 100 12/02/22 20:07 100 12/02/22 19:24 97.8 F 53 L 20 98/56 89 L General Appearance: no apparent distress Neurologic Exam: alert, cooperative, normal mood/affect Neck Exam: normal inspection Respiratory Exam: normal breath sounds Cardiovascular Exam: normal heart sounds Gastrointestinal/Abdomen Exam: soft, normal bowel sounds (Hard of hearing) Results - Labs Lab/Micro Results: Lab Results-Last 24 Hours 12/02/22 12/02/22 12/02/22 Range/Units 00:15 20:11 20:17 WBC 17.6 H (4.0-10.5) x10^3/uL RBC 3.52 L (4.1-5.6) x10^6/uL Hgb 10.9 L (12.5-18.0) g/dL Hct 35.5 L (42-50) % MCV 100.9 H (78-100) fL MCH 31.0 (26-32) pg MCHC 30.7 L (32-36) g/dL RDW 16.2 H (11.5-14.0) % Plt Count 306 (150-450) x10^3/uL MPV 9.0 (7.5-11.0) fL Gran % 84.2 H (36.0-66.0) % Immature Gran % (Auto) 0.6 H (0.00-0.4) % Nucleat RBC Rel Count 0.0 (0.00-0.1) % Eos # (Auto) 0.29 (0-0.5) x10^3/uL Immature Gran # (Auto) 0.10 H (0.00-0.03) x10^3u/L Absolute Lymphs (auto) 1.12 (1.0-4.6) x10^3/uL Absolute Monos (auto) 1.26 (0.0-1.3) x10^3/uL Absolute Nucleated RBC 0.00 (0.00-0.01) x10^3u/L Lymphocytes % 6.4 L (24.0-44.0) % Monocytes % 7.1 (0.0-12.0) % Eosinophils % 1.6 (0.00-5.0) % Basophils % 0.1 (0.0-0.4) % Absolute Granulocytes 14.84 H (1.4-6.9) x10^3/uL Basophils # 0.02 (0-0.4) x10^3/uL Sodium (137-145) mmol/L Potassium (3.5-5.1) mmol/L Chloride (98-107) mmol/L Carbon Dioxide (22-30) mmol/L Anion Gap (5-15) MEQ/L BUN (9-20) mg/dL Creatinine (0.66-1.25) mg/dL Estimated GFR ML/MIN Glucose (74-106) mg/dL Calcium (8.4-10.2) mg/dL Magnesium (1.6-2.3) mg/dL Total Bilirubin (0.2-1.3) mg/dL AST (17-59) U/L ALT (0-50) U/L Alkaline Phosphatase (38-126) U/L Troponin I < 0.012 (0.000-0.034) ng/mL NT-Pro-B Natriuret Pep (<300) pg/mL Serum Total Protein (6.3-8.2) g/dL Albumin (3.5-5.0) g/dL Urine Color Dark Yellow (Yellow) Urine Appearance Cloudy A (Clear) Urine pH 5.5 (4.6-8.0) Ur Specific [place] 1.015 (1.005-1.030) Urine Protein 30 (Negative) Urine Glucose (UA) Negative (Negative) mg/dL Urine Ketones Negative (Negative) Urine Blood Small A (Negative) Urine Nitrite Negative (Negative) Urine Bilirubin Negative (Negative) Urine Urobilinogen 0.2 (0.2) mg/dL Ur Leukocyte Esterase Large A (Negative) U Hyaline Cast (Auto) 26-50 A (0-2) /LPF Urine Microscopic RBC 0-2 (0-5) /HPF Urine Microscopic WBC >100 A (0-5) /HPF Ur Epithelial Cells Rare (None Seen) /HPF Urine Bacteria Few A (None Seen) /HPF Urine Culture Reflexed YES (NO) Influenza Type A Ag (NEGATIVE) Influenza Type B Ag (NEGATIVE) RSV (PCR) (NEGATIVE) SARS-CoV-2 (PCR) (NEGATIVE) 12/02/22 12/02/22 12/02/22 Range/Units 20:17 20:17 21:20 WBC (4.0-10.5) x10^3/uL RBC (4.1-5.6) x10^6/uL Hgb (12.5-18.0) g/dL Hct (42-50) % MCV (78-100) fL MCH (26-32) pg MCHC (32-36) g/dL RDW (11.5-14.0) % Plt Count (150-450) x10^3/uL MPV (7.5-11.0) fL Gran % (36.0-66.0) % Immature Gran % (Auto) (0.00-0.4) % Nucleat RBC Rel Count (0.00-0.1) % Eos # (Auto) (0-0.5) x10^3/uL Immature Gran # (Auto) (0.00-0.03) x10^3u/L Absolute Lymphs (auto) (1.0-4.6) x10^3/uL Absolute Monos (auto) (0.0-1.3) x10^3/uL Absolute Nucleated RBC (0.00-0.01) x10^3u/L Lymphocytes % (24.0-44.0) % Monocytes % (0.0-12.0) % Eosinophils % (0.00-5.0) % Basophils % (0.0-0.4) % Absolute Granulocytes (1.4-6.9) x10^3/uL Basophils # (0-0.4) x10^3/uL Sodium 138 (137-145) mmol/L Potassium 4.3 (3.5-5.1) mmol/L Chloride 98 (98-107) mmol/L Carbon Dioxide 37 H (22-30) mmol/L Anion Gap 7.5 (5-15) MEQ/L BUN 18 (9-20) mg/dL Creatinine 1.77 H (0.66-1.25) mg/dL Estimated GFR 39.0 ML/MIN Glucose 110 H (74-106) mg/dL Calcium 7.5 L (8.4-10.2) mg/dL Magnesium 1.8 (1.6-2.3) mg/dL Total Bilirubin 0.60 (0.2-1.3) mg/dL AST 37 (17-59) U/L ALT 26 (0-50) U/L Alkaline Phosphatase 151 H (38-126) U/L Troponin I < 0.012 (0.000-0.034) ng/mL NT-Pro-B Natriuret Pep 7030 (<300) pg/mL Serum Total Protein 5.7 L (6.3-8.2) g/dL Albumin 2.5 L (3.5-5.0) g/dL Urine Color (Yellow) Urine Appearance (Clear) Urine pH (4.6-8.0) Ur Specific [place] (1.005-1.030) Urine Protein (Negative) Urine Glucose (UA) (Negative) mg/dL Urine Ketones (Negative) Urine Blood (Negative) Urine Nitrite (Negative) Urine Bilirubin (Negative) Urine Urobilinogen (0.2) mg/dL Ur Leukocyte Esterase (Negative) U Hyaline Cast (Auto) (0-2) /LPF Urine Microscopic RBC (0-5) /HPF Urine Microscopic WBC (0-5) /HPF Ur Epithelial Cells (None Seen) /HPF Urine Bacteria (None Seen) /HPF Urine Culture Reflexed (NO) Influenza Type A Ag NEGATIVE (NEGATIVE) Influenza Type B Ag NEGATIVE (NEGATIVE) RSV (PCR) NEGATIVE (NEGATIVE) SARS-CoV-2 (PCR) NEGATIVE (NEGATIVE) 12/03/22 12/03/22 Range/Units 03:43 03:55 WBC (4.0-10.5) x10^3/uL RBC (4.1-5.6) x10^6/uL Hgb (12.5-18.0) g/dL Hct (42-50) % MCV (78-100) fL MCH (26-32) pg MCHC (32-36) g/dL RDW (11.5-14.0) % Plt Count (150-450) x10^3/uL MPV (7.5-11.0) fL Gran % (36.0-66.0) % Immature Gran % (Auto) (0.00-0.4) % Nucleat RBC Rel Count (0.00-0.1) % Eos # (Auto) (0-0.5) x10^3/uL Immature Gran # (Auto) (0.00-0.03) x10^3u/L Absolute Lymphs (auto) (1.0-4.6) x10^3/uL Absolute Monos (auto) (0.0-1.3) x10^3/uL Absolute Nucleated RBC (0.00-0.01) x10^3u/L Lymphocytes % (24.0-44.0) % Monocytes % (0.0-12.0) % Eosinophils % (0.00-5.0) % Basophils % (0.0-0.4) % Absolute Granulocytes (1.4-6.9) x10^3/uL Basophils # (0-0.4) x10^3/uL Sodium 135 L (137-145) mmol/L Potassium 3.9 (3.5-5.1) mmol/L Chloride 101 (98-107) mmol/L Carbon Dioxide 35 H (22-30) mmol/L Anion Gap 2.6 L (5-15) MEQ/L BUN 18 (9-20) mg/dL Creatinine 1.79 H (0.66-1.25) mg/dL Estimated GFR 38.5 ML/MIN Glucose 94 (74-106) mg/dL Calcium 6.9 L (8.4-10.2) mg/dL Magnesium (1.6-2.3) mg/dL Total Bilirubin 0.50 (0.2-1.3) mg/dL AST 27 (17-59) U/L ALT 21 (0-50) U/L Alkaline Phosphatase 114 (38-126) U/L Troponin I < 0.012 (0.000-0.034) ng/mL NT-Pro-B Natriuret Pep (<300) pg/mL Serum Total Protein 4.4 L (6.3-8.2) g/dL Albumin 1.8 L (3.5-5.0) g/dL Urine Color (Yellow) Urine Appearance (Clear) Urine pH (4.6-8.0) Ur Specific [place] (1.005-1.030) Urine Protein (Negative) Urine Glucose (UA) (Negative) mg/dL Urine Ketones (Negative) Urine Blood (Negative) Urine Nitrite (Negative) Urine Bilirubin (Negative) Urine Urobilinogen (0.2) mg/dL Ur Leukocyte Esterase (Negative) U Hyaline Cast (Auto) (0-2) /LPF Urine Microscopic RBC (0-5) /HPF Urine Microscopic WBC (0-5) /HPF Ur Epithelial Cells (None Seen) /HPF Urine Bacteria (None Seen) /HPF Urine Culture Reflexed (NO) Influenza Type A Ag (NEGATIVE) Influenza Type B Ag (NEGATIVE) RSV (PCR) (NEGATIVE) SARS-CoV-2 (PCR) (NEGATIVE) - Radiology Impressions Radiology Exams & Impressions: Radiology Procedures Category Date Time Status CHEST 1 VIEW (PORTABLE) Stat Exams 12/02/22 19:41 Taken HEAD WITHOUT CONTRAST [CT] Stat Exams 12/02/22 20:01 Taken - Other Procedures and Tests Respiratory Therapy 12/02/22 23:34 Oxygen Nasal Cannula 2 lpm 12/02/22 23:36 Respiratory Therapy Assessment DAILY Assessment/Plan (1) CHF (congestive heart failure) Current Visit: No Status: Chronic Qualifiers: Heart failure type: unspecified Heart failure chronicity: chronic Qualified Code(s): I50.9 - Heart failure, unspecified Assessment & Plan: Appears compensated at this time, not on GDMT for heart failure, do not know EF or echo function, will be careful with fluid adminsitration. Code(s): I50.9 - HEART FAILURE, UNSPECIFIED (2) Hypertension Current Visit: Yes Status: Chronic Qualifiers: Hypertension type: primary hypertension Qualified Code(s): I10 - Essential (primary) hypertension Assessment & Plan: Goal of <140/80, reasonably well controlled. Code(s): I10 - ESSENTIAL (PRIMARY) HYPERTENSION (3) Atrial fibrillation with rapid ventricular response Current Visit: Yes Status: Chronic Assessment & Plan: Appears regular, rate controlled, not on any stroke prophylaxis, will defer to primary contracts representative Code(s): I48.91 - UNSPECIFIED ATRIAL FIBRILLATION (4) UTI (urinary tract infection) Current Visit: Yes Status: Acute Qualifiers: Urinary tract infection type: acute cystitis Hematuria presence: without hematuria Qualified Code(s): N30.00 - Acute cystitis without hematuria Assessment & Plan: Symptomatic, with leuk esterase in urine, and DAWNA, no signs concerning for upper tract involve, levoflaxicin given in the ED, will continue for 7 days course. Code(s): N39.0 - URINARY TRACT INFECTION, SITE NOT SPECIFIED (5) DAWNA (acute kidney injury) Current Visit: Yes Status: Acute Assessment & Plan: Likely prerenal, in vance context of UTI and poor PO intake, will hydrate with IVF and PO fluids and follow Cr. Code(s): N17.9 - ACUTE KIDNEY FAILURE, UNSPECIFIED Telemedicine Encounter - Telemedicine Encounter Telemedicine Encounter: The entirety of this encounter was performed via Telemedicine"
[2022-12-03] MEDS ORDERED: Lactated Ringers 500 ML IV ONE (07:23)
--- NOTE | 2022-12-03 08:51 | XRAY ---
Indication: Altered mental status. Multiple contiguous axial images obtained through the head without contrast. Comparison: November 01, 2022 Again age-appropriate global atrophy and mild ventricular degenerative micro-ischemia bilaterally. No acute intracranial hemorrhage, abnormal extra-axial fluid collection, or mass effect. Fourth ventricle is midline without hydrocephalus. Bony calvarium intact. Grossly stable paranasal sinus disease again greatest right maxillary/right frontal sinuses. Mastoid air cells are clear. Impression: Continued nonacute senile brain with paranasal sinus disease.
--- NOTE | 2022-12-03 08:53 | XRAY ---
Indication: Confusion. Comparison: October 30, 2022 Portable chest remains inflated and clear. Heart not enlarged again with tortuous descending aorta. Bony thorax intact again with osteopenia, degenerative changes, old right rib fractures, and bilateral shoulder arthroplasty. Impression: Continued nonacute chest with chronic features.
[2022-12-03] MEDS ORDERED: VENTOLIN COMMON CANISTER IH PRN (09:35)
[2022-12-03] MEDS ORDERED: NON-FORMULARY ITEM (Dorzolamide Hcl/Pf [Dorzolamide 2% Eye Drop] 10 ML Drops) OP SCH (10:00)
[2022-12-03] MEDS ORDERED: HYDROCODONE-ACETAMIN 10-325 MG PO PRN (10:00)
[2022-12-03] MEDS ORDERED: MEDICATION INTERVENTION MC SCH (10:15)
[2022-12-03] MEDS: Ms Contin 15 MG PO SCH (10:41)
[2022-12-03] MEDS: Sodium Chloride 0.9% 1000 ML 1,000 ML IV SCH (10:41)
[2022-12-03] MEDS: ZOLOFT 50 MG TABLET PO SCH (10:42)
[2022-12-03] MEDS: Cordarone 200 MG PO SCH (10:43)
[2022-12-03] MEDS: ELIQUIS 2.5 MG TABLET PO SCH ×2 (10:44→22:37)
[2022-12-03] MEDS: MAG-OX 400 PO SCH (10:45)
[2022-12-03] MEDS: Lopressor 50 MG PO SCH ×2 (10:45→22:34)
[2022-12-03] MEDS: Zestril 10 MG PO SCH (10:45)
[2022-12-03] MEDS: CLONIDINE 0.1 MG TABLET PO SCH ×3 (10:46→22:37)
[2022-12-03] MEDS: Protonix 40MG Tablet PO SCH (12:42)
[2022-12-03] MEDS: PATIENT OWN MEDICATION OP SCH ×3 (14:14→22:34)
[2022-12-03] MEDS ORDERED: [UNRECOGNIZED DRUG - OTHER] OP SCH (22:00)
[2022-12-03] MEDS ORDERED: Levofloxacin 500MG/100ML D5W 500 MG/100 ML BAG IV SCH (22:00)
[2022-12-03] MEDS ORDERED: TIMOPTIC 0.5% 5 ML OPHTHALMIC OP SCH (22:00)
[2022-12-03] MEDS: Levaquin 250MG/50ML D5W 250 MG/50 ML BAG IV SCH (22:33)
[2022-12-03] MEDS: Flomax 0.4 MG PO SCH (22:36)
[2022-12-03] MEDS: zyPREXA 5MG TABLET PO SCH (22:37)
[2022-12-04 05:20] LABS: Absolute Neutrophil Ct (ANC) 4.43 x10^3/uL (1.4-6.9); BASOPHIL % 0.2 % (0.0-0.4); Basophil (Absolute #) 0.01 x10^3/uL (0-0.4); Eosinophil % 6.2 % (0.00-5.0); Eosinophil (Absolute #) 0.41 x10^3/uL (0-0.5); Hematocrit 28.2 % (42-50); Hemoglobin 8.6 g/dL (12.5-18.0); IMMATURE GRAN # 0.03 x10^3u/L (0.00-0.03); IMMATURE GRAN % 0.5 % (0.00-0.4); Lymphocytes % 13.7 % (24.0-44.0); Mean Cell Volume 102.2 fL (78-100); Mean Corpuscular Hemoglobin 31.2 pg (26-32); Mean Corpuscular Hgb Concent. 30.5 g/dL (32-36); Mean Platelet Volume 9.4 fL (7.5-11.0); Monocyte (Absolute #) 0.81 x10^3/uL (0.0-1.3); Monocytes % 12.3 % (0.0-12.0); Neutrophil % 67.1 % (36.0-66.0); Platelet Count 200 x10^3/uL (150-450); Red Blood Count 2.76 x10^6/uL (4.1-5.6); Red Cell Distribution Width 16.4 % (11.5-14.0); White Blood Count 6.6 x10^3/uL (4.0-10.5)
[2022-12-04 05:38] LABS: ANION GAP 4.5 MEQ/L (5-15); Calcium 6.9 mg/dL (8.4-10.2); Creatinine 1 1.4 mg/dL (0.66-1.25); EST GLOMERULAR FILTRATION RATE 51.1 ML/MIN; Potassium 3.7 mmol/L (3.5-5.1)
[2022-12-04] MEDS: ZOLOFT 50 MG TABLET PO SCH (08:59)
[2022-12-04] MEDS: Lopressor 50 MG PO SCH ×2 (08:59→21:28)
[2022-12-04] MEDS: CLONIDINE 0.1 MG TABLET PO SCH ×3 (08:59→21:28)
[2022-12-04] MEDS: Ms Contin 15 MG PO SCH (09:00)
[2022-12-04] MEDS: ELIQUIS 2.5 MG TABLET PO SCH ×2 (09:00→21:28)
[2022-12-04] MEDS: Cordarone 200 MG PO SCH (09:00)
[2022-12-04] MEDS: Protonix 40MG Tablet PO SCH (09:01)
[2022-12-04] MEDS: Zestril 10 MG PO SCH (09:01)
[2022-12-04] MEDS: MAG-OX 400 PO SCH (09:01)
[2022-12-04] MEDS: PATIENT OWN MEDICATION OP SCH ×4 (09:04→21:29)
--- NOTE | 2022-12-04 09:12 | PCM.NOTE ---
Date and Time: 12/04/22908 Subjective Assessment: patient has no specific complaints today, states he didn't rest well last night because he hates hospitals. he is alert and answers questions appropriately Objective Exam General Appearance: no apparent distress Neurologic Exam: alert, cooperative Wound Assessment: Skin/Wound Assessment Wound/Incision Assessment Start: 12/03/22 00:57 Text: Status: Active Freq: Q6H Protocol: Document 12/04/22 08:00 RB (Rec: 12/04/22 08:21 RB [id number]) Wound/Incision Assessment Medial Buttock Wound Assessment Shift Assessment Wound Type Pressure Ulcer Wound Stage Stage II Drainage Amount None General Appearance Open to air,Clean/Dry Length (cm) (cm) 2.5 Width (cm) (cm) 0.3 Wound Bed Greatest Portion Pale Enders Surrounding Tissue Enders Comment barrier cream applied PRN Wound Photo Photo Taken Yes Respiratory Exam: normal breath sounds, lungs clear, No respiratory distress Cardiovascular Exam: regular rate/rhythm, normal heart sounds Gastrointestinal/Abdomen Exam: soft, No tenderness, No mass OBJECTIVE DATA Vital Signs: Vital Signs - 24 hr Temp Pulse Resp BP Pulse Ox 12/04/22 06:46 97.5 F 60 17 135/64 98 12/04/22 06:44 78 18 98 12/04/22 04:00 75 17 96 12/03/22 23:37 98.4 F 104 H 16 132/63 100 12/03/22 19:37 97.9 F 67 125/59 95 12/03/22 18:53 95 12/03/22 16:00 97.3 F 65 18 118/58 100 12/03/22 12:00 97.9 F 69 18 123/60 97 Pain Assessment - Last Documented Pain Intensity 0 Intake and Output: Intake & Output 12/01/22 12/02/22 12/03/22 12/04/22 11:59 11:59 11:59 11:59 Intake Total 120 1106 Output Total 550 600 Balance -430 506 Weight 82.4 kg Lab Results: Lab Results-Last 24 Hours 12/04/22 12/04/22 Range/Units 04:53 04:53 WBC 6.6 (4.0-10.5) x10^3/uL RBC 2.76 L (4.1-5.6) x10^6/uL Hgb 8.6 L D (12.5-18.0) g/dL Hct 28.2 L (42-50) % MCV 102.2 H (78-100) fL MCH 31.2 (26-32) pg MCHC 30.5 L (32-36) g/dL RDW 16.4 H (11.5-14.0) % Plt Count 200 D (150-450) x10^3/uL MPV 9.4 (7.5-11.0) fL Gran % 67.1 H (36.0-66.0) % Immature Gran % (Auto) 0.5 H (0.00-0.4) % Nucleat RBC Rel Count 0.0 (0.00-0.1) % Eos # (Auto) 0.41 (0-0.5) x10^3/uL Immature Gran # (Auto) 0.03 (0.00-0.03) x10^3u/L Absolute Lymphs (auto) 0.90 L (1.0-4.6) x10^3/uL Absolute Monos (auto) 0.81 (0.0-1.3) x10^3/uL Absolute Nucleated RBC 0.00 (0.00-0.01) x10^3u/L Lymphocytes % 13.7 L (24.0-44.0) % Monocytes % 12.3 H (0.0-12.0) % Eosinophils % 6.2 H (0.00-5.0) % Basophils % 0.2 (0.0-0.4) % Absolute Granulocytes 4.43 (1.4-6.9) x10^3/uL Basophils # 0.01 (0-0.4) x10^3/uL Sodium 136 L (137-145) mmol/L Potassium 3.7 (3.5-5.1) mmol/L Chloride 100 (98-107) mmol/L Carbon Dioxide 35 H (22-30) mmol/L Anion Gap 4.5 L (5-15) MEQ/L BUN 17 (9-20) mg/dL Creatinine 1.40 H (0.66-1.25) mg/dL Estimated GFR 51.1 ML/MIN Glucose 110 H (74-106) mg/dL Calcium 6.9 L (8.4-10.2) mg/dL Radiology Exams: Radiology Procedures Category Date Time Status CHEST 1 VIEW (PORTABLE) Stat Exams 12/02/22 19:41 Completed HEAD WITHOUT CONTRAST [CT] Stat Exams 12/02/22 20:01 Completed Multi-Disciplinary Progress Notes: Multi-Disciplinary Progress Notes 12/03/22 15:16 Case Management Note by Keesha Pinedo PATIENT HAS [facility]. THEY WERE NOTIFIED PATIENT HERE OBS. THEY WILL NEED NOTIFIED AT TIME OF DC AT [phone]. THEY WILL NEED FAXED THE DC INSTRUCTIONS, DC MED LIST, AND DC SUMMARY ( IF AVAILABLE) TO [phone] Initialized on 12/03/22 15:16 - END OF NOTE 12/03/22 14:25 Case Management Note by Keesha Pinedo PATIENT CONFUSED- CALLED TO DISCUSS DC PLANS- NO ANSWER AT THIS. Initialized on 12/03/22 14:25 - END OF NOTE Assessment/Plan (1) UTI (urinary tract infection) Current Visit: Yes Status: Acute Qualifiers: Urinary tract infection type: acute cystitis Hematuria presence: without hematuria Qualified Code(s): N30.00 - Acute cystitis without hematuria Assessment & Plan: continue levaquin emperically culture and sens pending. will consult discharge planning, patient is very weak and likely needs ecf/rehab stay [facility]. Code(s): N39.0 - URINARY TRACT INFECTION, SITE NOT SPECIFIED (2) Atrial fibrillation Current Visit: Yes Status: Acute Code(s): I48.91 - UNSPECIFIED ATRIAL FIBRILLATION (3) Dementia Current Visit: Yes Status: Acute Code(s): F03.90 - UNSP DEMENTIA, UNSP SEVERITY, WITHOUT BEH/PSYCH/MOOD/ANX (4) DAWNA (acute kidney injury) Current Visit: Yes Status: Acute Assessment & Plan: improved, will d/c IV fluids. holding diuretics at this time Code(s): N17.9 - ACUTE KIDNEY FAILURE, UNSPECIFIED
[2022-12-04] MEDS: Vitamin B-6 (Pyridoxine) 100 MG PO SCH (09:21)
[2022-12-04 11:59] LABS: Folate (Folic Acid) > 19.0 ng/mL (2.76 - >20); Vitamin B12 668 pg/mL (239-931)
[2022-12-04] MEDS: Sodium Chloride 0.9% 1000 ML 1,000 ML IV SCH (19:58)
[2022-12-04] MEDS: zyPREXA 5MG TABLET PO SCH (21:28)
[2022-12-04] MEDS: Flomax 0.4 MG PO SCH (21:28)
[2022-12-04] MEDS: Levaquin 250MG/50ML D5W 250 MG/50 ML BAG IV SCH (21:33)
[2022-12-05 06:15] LABS: Basophil (Absolute #) 0 x10^3/uL (0-0.4); Eosinophil % 6.5 % (0.00-5.0); Eosinophil (Absolute #) 0.34 x10^3/uL (0-0.5); Hematocrit 30.1 % (42-50); Hemoglobin 9.1 g/dL (12.5-18.0); IMMATURE GRAN # 0.02 x10^3u/L (0.00-0.03); IMMATURE GRAN % 0.4 % (0.00-0.4); Lymphocyte (Absolute #) 1.05 x10^3/uL (1.0-4.6); Mean Cell Volume 100.7 fL (78-100); Mean Corpuscular Hemoglobin 30.4 pg (26-32); Mean Corpuscular Hgb Concent. 30.2 g/dL (32-36); Mean Platelet Volume 9.4 fL (7.5-11.0); Monocyte (Absolute #) 0.75 x10^3/uL (0.0-1.3); Monocytes % 14.3 % (0.0-12.0); Neutrophil % 58.8 % (36.0-66.0); Platelet Count 214 x10^3/uL (150-450); Red Blood Count 2.99 x10^6/uL (4.1-5.6); Red Cell Distribution Width 16.1 % (11.5-14.0); White Blood Count 5.3 x10^3/uL (4.0-10.5)
[2022-12-05 06:43] LABS: ANION GAP 3.8 MEQ/L (5-15); BLOOD UREA NITROGEN 13 mg/dL (9-20); CHLORIDE 104 mmol/L (98-107); Carbon Dioxide 32 mmol/L (22-30); Creatinine 1 1.15 mg/dL (0.66-1.25); EST GLOMERULAR FILTRATION RATE > 60.0 ML/MIN; Glucose 95 mg/dL (74-106); Potassium 3.8 mmol/L (3.5-5.1); SODIUM 136 mmol/L (137-145)
[2022-12-05] MEDS: Ms Contin 15 MG PO SCH (09:43)
[2022-12-05] MEDS: CLONIDINE 0.1 MG TABLET PO SCH ×2 (09:43→16:01)
[2022-12-05] MEDS: Protonix 40MG Tablet PO SCH (09:43)
[2022-12-05] MEDS: ZOLOFT 50 MG TABLET PO SCH (09:46)
[2022-12-05] MEDS: Cordarone 200 MG PO SCH (09:47)
[2022-12-05] MEDS: Zestril 10 MG PO SCH (09:48)
[2022-12-05] MEDS: Vitamin B-6 (Pyridoxine) 100 MG PO SCH (09:49)
[2022-12-05] MEDS: PATIENT OWN MEDICATION OP SCH ×3 (09:49→15:00)
[2022-12-05] MEDS: Lopressor 50 MG PO SCH (09:51)
[2022-12-05] MEDS: MAG-OX 400 PO SCH (09:52)
[2022-12-05] MEDS: ELIQUIS 2.5 MG TABLET PO SCH (09:52)
[2022-12-05] MEDS ORDERED: Lasix 20 MG/2 ML IV ONE (13:45)
[2022-12-05] MEDS ORDERED: Sodium Chloride 0.9% 500 ML 500 ML IV ONE ×2 (15:10→15:14)
[2022-12-05] MEDS ORDERED: Lasix 20 MG/2 ML ONE (15:50)
[2022-12-05 17:31] VITALS: BP 164/77; PULSE 60; O2SAT 99
[2022-12-06] MEDS ORDERED: Lasix 20 MG/2 ML IV ONE (15:30)
== END 2022-12-05 18:25 ==
LOC: ED 18:38 → MED SURG 22:58
PROVIDERS: ADMIT Internal Medicine; ATTEND Family Medicine
DX: I13.0 Hypertensive heart and chronic kidney disease with heart failure and stage 1 through stage 4 chronic kidney disease, or unspecified chronic kidney disease (principal); I50.9 Heart failure, unspecified; N18.9 Chronic kidney disease, unspecified; I48.91 Unspecified atrial fibrillation; N39.0 Urinary tract infection, site not specified; L89.302 Pressure ulcer of unspecified buttock, stage 2; F03.90 Unspecified dementia, unspecified severity, without behavioral disturbance, psychotic disturbance, mood disturbance, and anxiety; Z79.899 Other long term (current) drug therapy; Z20.828 Contact with and (suspected) exposure to other viral communicable diseases; Z79.01 Long term (current) use of anticoagulants; Z85.51 Personal history of malignant neoplasm of bladder
CPT/HCPCS: 0241U; 36000; 36415; 51702; 70450; 71045; 80048; 80053; 81001; 82607; 82746; 83540; 83735; 83880; 84484; 85025; 87077; 87086; 87186; 93005; 93041; 93268; 94760; 96374; 97110; 97161; 99285; G0378; J1940; J1956; A9270-GY

== ENCOUNTER 2023-07-01 08:08 | Day surgery (SDC) | payer MEDICARE ==
[~2023-07-01 08:08] MED LIST changes: -ACETAZOLAMIDE 250 MG TABLET PO ONE; -Zofran 4 MG/2 ML VIAL IV PRN
[2023-07-01] MEDS ORDERED: Lactated Ringers 1,000 ML IV ONE (08:23)
[2023-07-01] MEDS ORDERED: Epinephrine Preservative Free 1 MG/ML IJ ONE (09:00)
[2023-07-01 09:22] VITALS: RESP 18
[2023-07-01] MEDS ORDERED: DIPRIVAN 200 MG/20 ML IV ONE (10:49)
[2023-07-01] MEDS ORDERED: Xylocaine-Mpf 2% 5 Ml Vial ONE (10:49)
[2023-07-01] MEDS ORDERED: Versed 2 MG/2 ML Injection ONE (10:50)
[2023-07-01] MEDS ORDERED: ACETAZOLAMIDE 250 MG TABLET PO ONE (11:00)
[2023-07-01] MEDS ORDERED: Zofran 4 MG/2 ML VIAL IV PRN (11:00)
[2023-07-01 11:41] VITALS: PULSE 55; O2SAT 94
[2023-07-01 11:45] VITALS: BP 136/73; TEMP 97
== END 2023-07-01 11:55 | disposition home or self-care (01) ==
LOC: SDC 08:08
PROVIDERS: ATTEND Ophthalmology
DX: H25.811 Combined forms of age-related cataract, right eye (principal); I10 Essential (primary) hypertension; Z79.899 Other long term (current) drug therapy
CPT/HCPCS: 93005; 99100; C1780; J0171; J2250; J2704; A9270-GY

== ENCOUNTER 2024-03-13 10:56 | Emergency (ER) | payer MEDICARE ==
--- NOTE | 2024-03-13 11:03 | ERPHSYRPT ---
- History of Present Illness Time Seen by Provider: 03/13/24 11:02 Source: patient Exam Limitations: no limitations Physician History: This is an 88-year-old white male patient of Dr. Maldonado who was brought to the emergency department by private vehicle by his because she is concerned that his kidneys are not working well enough. She notices that he is not urinating as often as typical for him. Patient has been eating normally for him. Patient has had normal bowel movements. He denies chest pain. He denies fever. He denies cough. He denies shortness of breath although his room air oxygen saturation on arrival to the emergency department is 89%. Patient is chronically weak. Patient states that the level of weakness is the same for him and it is not unchanged. Patient also has chronic back pain and that level of back pain is the same for him and it has not changed. He has not fallen. Patient ambulates with a walker. Patient is seeing a urologist for bladder cancer and receives chemotherapy treatments for this. Patient has a history of migraine headaches, arrhythmias on Eliquis, CHF, hypertension, arthritis, gastroesophageal reflux disease and is on home oxygen treatment at night primarily. Severity: mild Modifying Factors: Improves With: nothing Associated Symptoms: weakness, No nausea, No vomiting, No abdominal pain, No shortness of breath, No chest pain, No fever, No headaches Allergies/Adverse Reactions: No Known Allergies Allergy (Verified 03/13/24 11:22) Home Medications: Morphine Sulfate Cr 30 mg [Ms Contin 30 mg] 45 mg PO DAILY 06/08/20 [History] Ferrous Sulfate 325 mg PO DAILY 02/20/22 [History] Multivitamin [Multi-Vitamin Daily] 1 each PO DAILY 02/20/22 [History] Olanzapine 5 mg [zyPREXA 5MG TABLET] 5 mg PO HS 02/20/22 [History] Dorzolamide HCl/Pf [Dorzolamide 2% Eye Drop] 1 drop BID 05/21/22 [History] Apixaban [Eliquis 5 mg Tablet] 2.5 mg PO BID 06/02/22 [History] Clonidine HCl 0.1 mg [Clonidine 0.1 mg Tablet] 0.2 mg PO TID 06/02/22 [History] Furosemide 40 mg [Lasix 40 MG] 40 mg PO BID 06/02/22 [History] Metoprolol Tartrate 50 mg [Lopressor 50 MG] 75 mg PO BID 06/02/22 [History] Potassium Chloride [Klor-Con 10] 1 tab PO BID 06/02/22 [History] Sertraline HCl 100 mg PO DAILY 06/02/22 [History] Tamsulosin HCl 0.4 mg [Flomax 0.4 MG] 1 cap PO HS 06/02/22 [History] Hydrocodone/Acetaminophen [Hydrocodone-Acetamin 10-325 mg] 1 each PO QID 0 10/30/22 [History] Lisinopril 10 mg [Zestril 10 MG] 10 mg PO DAILY 10/30/22 [History] Albuterol Sulfate [Proair Respiclick] 90 mcg IH UD 12/02/22 [History] Magnesium Oxide 400 mg [Mag-Ox 400] 1 tab PO DAILY 12/02/22 [History] Timolol Maleate/Pf [Timolol Maleate 0.5% Eye Drop] 1 drop BID 12/03/22 [History] Naloxone HCl [Narcan] 4 mg PO UD 05/25/23 [History] Amlodipine Besylate [Norvasc] 5 mg PO DAILY 07/01/23 [History] PANTOPRAZOLE 40 mg Tablet [Protonix 40MG Tablet] 40 mg PO BID 07/01/23 [History] Hx Tetanus, Diphtheria Vaccination/Date Given: No Hx Influenza Vaccination/Date Given: No Hx Pneumococcal Vaccination/Date Given: No Travel Risk - International Travel Have you traveled outside of the country in past 3 weeks: No - Emerging Infectious Disease Are you exhibiting symptoms associated with any current EIDs: No - Review of Systems Constitutional: Weakness Eyes: No Symptoms Ears, Nose, & Throat: No Symptoms Respiratory: No Symptoms Cardiac: No Symptoms Abdominal/Gastrointestinal: No Symptoms Genitourinary Symptoms: No Symptoms Musculoskeletal: Back Pain (Chronic), No Fall Skin: No Symptoms Neurological: No Symptoms Psychological: No Symptoms Endocrine: No Symptoms Hematologic/Lymphatic: No Symptoms Immunological/Allergic: No Symptoms All Other Systems: Reviewed and Negative - Past Medical History Pertinent Past Medical History: Yes Neurological History: Migraines ENT History: Cataracts Cardiac History: Arrhythmia, Congestive Heart Failure, Hypertension Respiratory History: CHF Endocrine Medical History: No Pertinent History Musculoskeletal History: Arthritis GI Medical History: Ulcer, Other History: Bladder Cancer Psycho-Social History: Depression Male Reproductive Disorders: No Pertinent History Other Medical History: bladder cancer 2012. home oxygen at bedtime, migraines in the past, - Past Surgical History Past Surgical History: Yes Neuro Surgical History: No Pertinent History Cardiac: No Pertinent History Respiratory: No Pertinent History Gastrointestinal: Other Genitourinary: Other Musculoskeletal: Orthopedic Surgery Male Surgical History: No Pertinent History Other Surgical History: Bilateral hip replacement, Bilateral shoulder replacement, bladder biopsy - Social History Smoking Status: Never smoker Exposure to second hand smoke: No Drug Use: none Patient Lives Alone: No - Nursing Vital Signs Nursing Vital Signs: Initial Vital Signs Temperature 98.2 F 03/13/24 11:20 Pulse Rate 63 03/13/24 11:20 Respiratory Rate 16 03/13/24 11:20 Blood Pressure 128/53 03/13/24 11:20 O2 Sat by Pulse Oximetry 89 L 03/13/24 11:20 Pain Scale Pain Intensity 0 - Physical Exam General Appearance: no apparent distress, alert Eye Exam: PERRL/EOMI, eyes nml inspection Ears, Nose, Throat Exam: normal ENT inspection, moist mucous membranes Neck Exam: normal inspection, non-tender, supple, full range of motion Respiratory Exam: normal breath sounds, lungs clear, airway intact, No chest tenderness, No respiratory distress Cardiovascular Exam: regular rate/rhythm, normal heart sounds, normal peripheral pulses Gastrointestinal/Abdomen Exam: soft, normal bowel sounds, No tenderness Rectal Exam: not done Back Exam: normal inspection, normal range of motion, No CVA tenderness, No vertebral tenderness Extremity Exam: normal inspection, normal range of motion, pelvis stable Neurologic Exam: alert, oriented x 3, cooperative, 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, normal mood/affect, sensation nml Skin Exam: normal color, warm, dry Lymphatic Exam: No adenopathy SpO2 Interpretation: borderline oxygenation O2 Delivery: Room Air (On 2 L oxygen via nasal cannula the patient's oxygen saturation level increased to 95%) - Course Nursing assessment & vital signs reviewed: Yes Ordered Tests: Active Orders 24 hr Category Date Time Status EKG-ER Only STAT Care 03/13/24 11:38 Active IV Insertion STAT Care 03/13/24 11:38 Active Pulse Oximetry (ED) STAT Care 03/13/24 11:38 Active cath [Cath for Specimen-Straight] STAT Care 03/13/24 13:26 Active CHEST 1 VIEW (PORTABLE) Stat Exams 03/13/24 12:00 Completed CBC W DIFF Stat Lab 03/13/24 12:02 Completed CMP Stat Lab 03/13/24 12:02 Completed CULTURE,URINE Stat Lab 03/13/24 13:27 Ordered MAGNESIUM Stat Lab 03/13/24 12:02 Completed MONO SCREEN Stat Lab 03/13/24 12:02 Completed NT PRO BNPII Stat Lab 03/13/24 12:02 Completed TROPONIN Q4H Lab 03/13/24 12:02 Completed TROPONIN Q4H Lab 03/13/24 15:45 Ordered TROPONIN Q4H Lab 03/13/24 19:45 Ordered UA W/RFX UR CULTURE Stat Lab 03/13/24 13:23 Completed Medication Summary Generic Name Dose Route Start Last Admin Trade Name Freq PRN Reason Stop Dose Admin Sodium Chloride 500 mls @ 999 mls/hr 03/13/24 13:17 03/13/24 13:25 Sodium Chloride 0.9% 500 Ml IV 03/13/24 13:47 999 mls/hr .Q31M ONE Administration Discontinued Medications Generic Name Dose Route Start Last Admin Trade Name Freq PRN Reason Stop Dose Admin Sodium Chloride Confirm 03/13/24 13:19 Sodium Chloride 0.9% 500 Ml Administered 03/13/24 13:20 Dose 500 mls @ ud IV .STK-MED ONE Lab/Rad Data: Laboratory Result Diagrams 03/13/24 12:02 03/13/24 12:02 Laboratory Results 03/13/24 03/13/24 03/13/24 Range/Units 13:23 12:08 12:02 WBC (4.23-9.07) x10^3/uL RBC (4.63-6.08) x10^6/uL Hgb (13.7-17.5) g/dL Hct (40.1-51.0) % MCV (79.0-92.2) fL MCH (25.7-32.2) pg MCHC (32.3-36.5) g/dL RDW (11.6-14.4) % Plt Count (163-337) x10^3/uL MPV (9.4-12.4) fL Gran % (34.0-67.9) % Immature Gran % (Auto) (0.001-0.429) % Nucleat RBC Rel Count (0.00-0.2) % Eos # (Auto) (0.04-0.54) x10^3/uL Immature Gran # (Auto) (0.001-0.031) x10^3u/L Absolute Lymphs (auto) (1.32-3.57) x10^3/uL Absolute Monos (auto) (0.30-0.82) x10^3/uL Absolute Nucleated RBC (0.00-0.012) x10^3u/L Lymphocytes % (21.8-53.1) % Monocytes % (5.3-12.2) % Eosinophils % (0.8-7.0) % Basophils % (0.2-1.2) % Absolute Granulocytes (1.78-5.38) x10^3/uL Basophils # (0.01-0.08) x10^3/uL Sodium (135-145) mmol/L Potassium (3.5-5.1) mmol/L Chloride (98-107) mmol/L Carbon Dioxide (22-30) mmol/L Anion Gap (5-15) MEQ/L BUN (9-20) mg/dL Creatinine (0.66-1.25) mg/dL Estimated GFR ML/MIN Glucose (74-106) mg/dL Calcium (8.4-10.2) mg/dL Magnesium (1.6-2.3) mg/dL Total Bilirubin (0.2-1.3) mg/dL AST (17-59) U/L ALT (0-50) U/L Alkaline Phosphatase (38-126) U/L Troponin I (0.000-0.033) ng/mL NT-Pro-B Natriuret Pep (<300) pg/mL Serum Total Protein (6.3-8.2) g/dL Albumin (3.5-5.0) g/dL Urine Color Yellow (Yellow) Urine Appearance Cloudy A (Clear) Urine pH 5.5 (4.6-8.0) Ur Specific [place] 1.015 (1.005-1.030) Urine Protein Negative (Negative) Urine Glucose (UA) Negative (Negative) mg/dL Urine Ketones Negative (Negative) Urine Blood Negative (Negative) Urine Nitrite Negative (Negative) Urine Bilirubin Negative (Negative) Urine Urobilinogen 1.0 A (0.2) mg/dL Ur Leukocyte Esterase Small A (Negative) U Hyaline Cast (Auto) 3-5 A (0-2) /LPF Urine Microscopic RBC 0-2 (0-5) /HPF Urine Microscopic WBC 11-20 A (0-5) /HPF Ur Epithelial Cells Rare (None Seen) /HPF Urine Bacteria None Seen (None Seen) /HPF Urine Culture Reflexed ORDERED SEPARATELY (NO) Monoscreen NEGATIVE (NEGATIVE) Influenza Type A Ag NEGATIVE (NEGATIVE) Influenza Type B Ag NEGATIVE (NEGATIVE) RSV (PCR) NEGATIVE (NEGATIVE) SARS-CoV-2 (PCR) NEGATIVE (NEGATIVE) 03/13/24 03/13/24 03/13/24 Range/Units 12:02 12:02 12:02 WBC 9.2 H (4.23-9.07) x10^3/uL RBC 3.34 L (4.63-6.08) x10^6/uL Hgb 10.1 L (13.7-17.5) g/dL Hct 32.4 L (40.1-51.0) % MCV 97.0 H (79.0-92.2) fL MCH 30.2 (25.7-32.2) pg MCHC 31.2 L (32.3-36.5) g/dL RDW 12.4 (11.6-14.4) % Plt Count 335 (163-337) x10^3/uL MPV 8.8 L (9.4-12.4) fL Gran % 71.0 H (34.0-67.9) % Immature Gran % (Auto) 0.7 H (0.001-0.429) % Nucleat RBC Rel Count 0.0 (0.00-0.2) % Eos # (Auto) 0.40 (0.04-0.54) x10^3/uL Immature Gran # (Auto) 0.06 H (0.001-0.031) x10^3u/L Absolute Lymphs (auto) 1.14 L (1.32-3.57) x10^3/uL Absolute Monos (auto) 1.07 H (0.30-0.82) x10^3/uL Absolute Nucleated RBC 0.00 (0.00-0.012) x10^3u/L Lymphocytes % 12.4 L (21.8-53.1) % Monocytes % 11.6 (5.3-12.2) % Eosinophils % 4.3 (0.8-7.0) % Basophils % 0.0 L (0.2-1.2) % Absolute Granulocytes 6.54 H (1.78-5.38) x10^3/uL Basophils # 0 L (0.01-0.08) x10^3/uL Sodium 136 (135-145) mmol/L Potassium 4.3 (3.5-5.1) mmol/L Chloride 99 (98-107) mmol/L Carbon Dioxide 31 H (22-30) mmol/L Anion Gap 9.6 (5-15) MEQ/L BUN 24 H (9-20) mg/dL Creatinine 1.44 H (0.66-1.25) mg/dL Estimated GFR 47.0 ML/MIN Glucose 130 H (74-106) mg/dL Calcium 8.6 (8.4-10.2) mg/dL Magnesium 2.0 (1.6-2.3) mg/dL Total Bilirubin 0.50 (0.2-1.3) mg/dL AST 22 (17-59) U/L ALT 17 (0-50) U/L Alkaline Phosphatase 96 (38-126) U/L Troponin I < 0.012 (0.000-0.033) ng/mL NT-Pro-B Natriuret Pep 760 (<300) pg/mL Serum Total Protein 6.3 (6.3-8.2) g/dL Albumin 2.8 L (3.5-5.0) g/dL Urine Color (Yellow) Urine Appearance (Clear) Urine pH (4.6-8.0) Ur Specific [place] (1.005-1.030) Urine Protein (Negative) Urine Glucose (UA) (Negative) mg/dL Urine Ketones (Negative) Urine Blood (Negative) Urine Nitrite (Negative) Urine Bilirubin (Negative) Urine Urobilinogen (0.2) mg/dL Ur Leukocyte Esterase (Negative) U Hyaline Cast (Auto) (0-2) /LPF Urine Microscopic RBC (0-5) /HPF Urine Microscopic WBC (0-5) /HPF Ur Epithelial Cells (None Seen) /HPF Urine Bacteria (None Seen) /HPF Urine Culture Reflexed (NO) Monoscreen (NEGATIVE) Influenza Type A Ag (NEGATIVE) Influenza Type B Ag (NEGATIVE) RSV (PCR) (NEGATIVE) SARS-CoV-2 (PCR) (NEGATIVE) - Progress Progress: improved, re-examined Progress Note: 03/13/24 11:56 My medical decision making and the assignment of moderate complexity to this patient's medical issue today is based on review of the patient's past medical history, review of the patient's medication list, review of the patient's drug allergy list, history present illness and physical findings on examination. The workup in this patient includes placement of 2 L oxygen via nasal cannula, intravenous line placement, infusion of low rate intravenous crystalloid, CBC, CMP, BNP, troponin level, twelve-lead EKG, urinalysis and chest x-ray. Differential diagnosis includes was not limited to electrolyte abnormalities, dehydration, urinary tract infection, myocardial infarction, arrhythmias, anemia The chest x-ray was interpreted by the radiologist and I reviewed the impression. The impression states nonacute chest x-ray findings. There are chronic features present. I interpreted the laboratory data results. The urinalysis is pending. Based on what lab results have returned at this point, patient has chronic anemia. There is chronic renal issues and hypoalbuminemia but no evidence of any acute, emergent medical issues. We will follow-up on the urinalysis. 03/13/24 13:45 The urinalysis shows mild urinary tract infection. We will have the patient's stop Bactrim DS and we will remotely send a prescription of cefdinir to his pharmacy. Counseled pt/family regarding: lab results, diagnosis, rad results Medical Desision Making - Independent Historian Additional History obtained from: Spouse - Diagnostic Testing Diagnostic test were ordered, analyzed, and reviewed by me: Yes Radiological Interpretation: Reviewed by me, Teleradiologist Report - Risk of complications The pt has a mod risk of morbidity or mortality based on: Need for prescription drug management - Departure Departure Disposition: Home Clinical Impression: Generalized weakness, UTI (urinary tract infection) Condition: Stable Critical Care Time: No Referrals: MANJIT MALDONADO MD [Primary Care Provider] - Follow up/PCP as directed Additional Instructions: Drink plenty of fluids. Stop your Bactrim DS antibiotics. Take your other medication as prescribed. Keep your upcoming appointments with your primary care provider and urologist. Call your primary care provider and urologist today to make them aware that you were here in the emergency department. Prescriptions: Cefdinir 300 mg PO BID #14 cap
[2024-03-13 11:41] VITALS: TEMP 98.2
[2024-03-13 12:15] LABS: Absolute Neutrophil Ct (ANC) 6.54 x10^3/uL (1.78-5.38); Basophil (Absolute #) 0 x10^3/uL (0.01-0.08); Eosinophil % 4.3 % (0.8-7.0); Hematocrit 32.4 % (40.1-51.0); Hemoglobin 10.1 g/dL (13.7-17.5); IMMATURE GRAN # 0.06 x10^3u/L (0.001-0.031); IMMATURE GRAN % 0.7 % (0.001-0.429); Lymphocyte (Absolute #) 1.14 x10^3/uL (1.32-3.57); Lymphocytes % 12.4 % (21.8-53.1); Mean Corpuscular Hemoglobin 30.2 pg (25.7-32.2); Mean Corpuscular Hgb Concent. 31.2 g/dL (32.3-36.5); Mean Platelet Volume 8.8 fL (9.4-12.4); Monocyte (Absolute #) 1.07 x10^3/uL (0.30-0.82); Monocytes % 11.6 % (5.3-12.2); Platelet Count 335 x10^3/uL (163-337); Red Blood Count 3.34 x10^6/uL (4.63-6.08); Red Cell Distribution Width 12.4 % (11.6-14.4); White Blood Count 9.2 x10^3/uL (4.23-9.07)
[2024-03-13 12:47] LABS: ALBUMIN 2.8 g/dL (3.5-5.0); ANION GAP 9.6 MEQ/L (5-15); BILIRUBIN,TOTAL 0.5 mg/dL (0.2-1.3); Calcium 8.6 mg/dL (8.4-10.2); Creatinine 1 1.44 mg/dL (0.66-1.25); Potassium 4.3 mmol/L (3.5-5.1); Total Protein 6.3 g/dL (6.3-8.2)
[2024-03-13 12:51] LABS: INFLUENZA A NEGATIVE (NEGATIVE); INFLUENZA B NEGATIVE (NEGATIVE); RESPIRATORY SYNCTIAL VIRUS NEGATIVE (NEGATIVE); SARS-CoV-2 Xpert Express NEGATIVE (NEGATIVE)
--- NOTE | 2024-03-13 13:01 | XRAY ---
Indication: Weakness. Low oxygenation. UTI. Comparison: December 02, 2022 Portable chest is now underinflated and remains clear. Heart not enlarged again with tortuous descending aorta. Bony thorax intact again with osteopenia, degenerative changes, old right rib fractures, and bilateral shoulder arthroplasty. Impression: Nonacute underinflated chest with chronic features.
[2024-03-13] MEDS ORDERED: Sodium Chloride 0.9% 500 ML 500 ML IV ONE (13:19)
[2024-03-13] MEDS: Sodium Chloride 0.9% 500 ML 500 ML IV ONE (13:25)
[2024-03-13 13:34] LABS: Appearance Cloudy (Clear); Bacteria None Seen /HPF (None Seen); Bilirubin Negative (Negative); Blood Negative (Negative); Epithelial Cells Rare /HPF (None Seen); Glucose, Urine Negative (Negative); Ketones Negative (Negative); Leukocyte Esterase Small (Negative); Nitrite Negative (Negative); Ph 5.5 (4.6-8.0); Protein,Urine Dip Negative (Negative); RBC 0-2 /HPF (0-5); Specific Gravity 1.015 (1.005-1.030)
[2024-03-13 13:36] LABS: ADD URINE CULTURE? ORDERED SEPARATELY (NO)
[2024-03-13 13:52] VITALS: BP 134/43; PULSE 61; RESP 21; O2SAT 96
== END 2024-03-13 14:10 | disposition home or self-care (01) ==
LOC: ED 10:56
DX: N39.0 Urinary tract infection, site not specified (principal); R53.1 Weakness; I11.0 Hypertensive heart disease with heart failure; I50.9 Heart failure, unspecified; Z79.01 Long term (current) use of anticoagulants; Z79.891 Long term (current) use of opiate analgesic; Z79.899 Other long term (current) drug therapy
CPT/HCPCS: 0241U; 36000; 36415; 71045; 80053; 81001; 83735; 83880; 84484; 85025; 86308; 87086; 93005; 94760; 99284; P9612

== ENCOUNTER 2024-04-09 15:56 | Observation (INO) | payer MEDICARE ==
[2024-04-09 16:33] LABS: Appearance Clear (Clear); Bacteria None Seen /HPF (None Seen); Bilirubin Negative (Negative); Blood Negative (Negative); Epithelial Cells Rare /HPF (None Seen); Glucose, Urine Negative (Negative); Hyaline Casts NONE SEEN /LPF (0-2); Ketones Negative (Negative); Leukocyte Esterase Moderate (Negative); Nitrite Negative (Negative); Ph 5.5 (4.6-8.0); Protein,Urine Dip Trace (Negative); RBC 0-2 /HPF (0-5); Specific Gravity 1.015 (1.005-1.030); WBC 21-50 /HPF (0-5)
[2024-04-09 16:34] LABS: ADD URINE CULTURE? YES (NO)
[2024-04-09] MEDS ORDERED: ROCEPHIN 1 GM / 100 ML NaCl 1 GM/100 ML IVPB IV ONE (16:38)
[2024-04-09] MEDS: ROCEPHIN 1 GM / 100 ML NaCl 1 GM/100 ML IVPB IV ONE (16:41)
--- NOTE | 2024-04-09 16:43 | ERPHSYRPT ---
- History of Present Illness Time Seen by Provider: 04/09/24 16:25 Source: patient, family Patient Subjective Stated Complaint: Swelling Triage Nursing Assessment: Patient brought back to ED per w/c and transferred to bed with assist of 1. Patient A+O X 2, disoriented to time. Patient states he is unsure why he is here. Patient's states patient has been having increased swelling to BLE and BUE and increased weakness. Patient denies pain or discomfort. Initial O2 85% on room air. O2 applied at 2 liters per N/C. Physician History: This is an 88-year-old white male patient who was brought into the emergency department by private vehicle by his . He is a patient of Dr. Maldonado. Patient was noticed to have increased swelling in his upper and lower extremities bilaterally. He has also had increased weakness. Patient's room air oxygen saturation was 85% on room air. Patient does use 2 L of oxygen at night only. Patient was placed on 2 L of oxygen upon arrival to the emergency room and his room air oxygenation went up to 95 to 96%. He denies chest pain. He denies cough. He denies any type of pain. Patient is on Eliquis for his arrhythmia. He has a history of CHF and does take Lasix 40 mg orally twice a day. He has a history of bladder cancer, hypertension and gastroesophageal reflux disease. Timing/Duration: today Allergies/Adverse Reactions: No Known Allergies Allergy (Verified 04/09/24 16:00) Home Medications: Ferrous Sulfate 325 mg PO BID 02/20/22 [History] Multivitamin [Multi-Vitamin Daily] 1 each PO DAILY 02/20/22 [History] Olanzapine 5 mg [zyPREXA 5MG TABLET] 5 mg PO HS 02/20/22 [History] Dorzolamide HCl/Pf [Dorzolamide 2% Eye Drop] 1 drop BID 05/21/22 [History] Apixaban [Eliquis 5 mg Tablet] 2.5 mg PO BID 06/02/22 [History] Clonidine HCl 0.1 mg [Clonidine 0.1 mg Tablet] 0.2 mg PO TID 06/02/22 [Histor y] Furosemide 40 mg [Lasix 40 MG] 40 mg PO BID 06/02/22 [History] Metoprolol Tartrate 50 mg [Lopressor 50 MG] 75 mg PO BID 06/02/22 [History] Potassium Chloride [Klor-Con 10] 1 tab PO BID 06/02/22 [History] Sertraline HCl 100 mg PO DAILY 06/02/22 [History] Tamsulosin HCl 0.4 mg [Flomax 0.4 MG] 1 cap PO HS 06/02/22 [History] Hydrocodone/Acetaminophen [Hydrocodone-Acetamin 10-325 mg] 1 each PO QID 10/30/22 [History] Lisinopril 10 mg [Zestril 10 MG] 10 mg PO BID 10/30/22 [History] Albuterol Sulfate [Proair Respiclick] 90 mcg IH UD 12/02/22 [History] Magnesium Oxide 400 mg [Mag-Ox 400] 1 tab PO DAILY 12/02/22 [History] Timolol Maleate/Pf [Timolol Maleate 0.5% Eye Drop] 1 drop BID 12/03/22 [History] Naloxone HCl [Narcan] 4 mg PO UD 05/25/23 [History] Amlodipine Besylate [Norvasc] 5 mg PO DAILY 07/01/23 [History] PANTOPRAZOLE 40 mg Tablet [Protonix 40MG Tablet] 40 mg PO BID 07/01/23 [History] Ergocalciferol (Vitamin D2) [Vitamin D2] 1 tab PO DAILY 04/09/24 [History] Morphine Sulfate [Morphine Sulfate ER] 1 tab PO BID 04/09/24 [History] Morphine Sulfate [Morphine Sulfate ER] 1 tab PO HS 04/09/24 [History] Hx Tetanus, Diphtheria Vaccination/Date Given: No Hx Influenza Vaccination/Date Given: No Hx Pneumococcal Vaccination/Date Given: No Immunizations Up to Date: Yes Travel Risk - International Travel Have you traveled outside of the country in past 3 weeks: No - Emerging Infectious Disease Are you exhibiting symptoms associated with any current EIDs: Yes Symptoms: Shortness of Breath - Review of Systems Constitutional: Weakness Eyes: No Symptoms Ears, Nose, & Throat: No Symptoms Respiratory: Dyspnea Cardiac: No Symptoms, No Chest Pain Abdominal/Gastrointestinal: No Symptoms Genitourinary Symptoms: No Symptoms Musculoskeletal: No Symptoms Skin: No Symptoms Neurological: No Symptoms Psychological: No Symptoms Endocrine: No Symptoms Hematologic/Lymphatic: No Symptoms Immunological/Allergic: No Symptoms All Other Systems: Reviewed and Negative - Past Medical History Pertinent Past Medical History: Yes Neurological History: Migraines ENT History: Cataracts Cardiac History: Arrhythmia, Congestive Heart Failure, Hypertension Respiratory History: CHF Endocrine Medical History: No Pertinent History Musculoskeletal History: Arthritis GI Medical History: Ulcer, Other History: Bladder Cancer Psycho-Social History: Depression Male Reproductive Disorders: No Pertinent History Other Medical History: bladder cancer 2011. home oxygen at bedtime, migraines in the past, - Past Surgical History Past Surgical History: Yes Neuro Surgical History: No Pertinent History Cardiac: No Pertinent History Respiratory: No Pertinent History Gastrointestinal: Other Genitourinary: Other Musculoskeletal: Orthopedic Surgery Male Surgical History: No Pertinent History Other Surgical History: Bilateral hip replacement, Bilateral shoulder replacement, bladder biopsy - Social History Smoking Status: Never smoker Exposure to second hand smoke: No Drug Use: none Patient Lives Alone: No - Social Determinants of Health Will the patient participate in the screening: Yes Do you worry about a steady place to live?: No Do you have any problems with any of the following?: No known problems In the past 12 months,have you had to go without utilities?: No Transportation Issues: No Has anyone in your support network made you feel unsafe?: No Have you or anyone in your house had to go without enough: No - Nursing Vital Signs Nursing Vital Signs: Initial Vital Signs Temperature 98.7 F 04/09/24 16:02 Pulse Rate 78 04/09/24 16:02 Respiratory Rate 30 H 04/09/24 16:02 Blood Pressure 145/60 04/09/24 16:02 O2 Sat by Pulse Oximetry 85 L 04/09/24 16:02 Pain Scale Pain Intensity 0 - Physical Exam General Appearance: no apparent distress, alert Eye Exam: PERRL/EOMI, eyes nml inspection, pale conjunctivae Ears, Nose, Throat Exam: normal ENT inspection, moist mucous membranes Neck Exam: normal inspection, non-tender, supple, full range of motion Respiratory Exam: normal breath sounds, lungs clear, airway intact, No chest tenderness, No respiratory distress Cardiovascular Exam: regular rate/rhythm, normal heart sounds, normal peripheral pulses Gastrointestinal/Abdomen Exam: soft, normal bowel sounds, No tenderness Rectal Exam: not done Back Exam: normal inspection Extremity Exam: normal inspection, normal range of motion, pelvis stable, pedal edema (Bilateral feet and ankles), swelling (Lateral hands) Neurologic Exam: alert, oriented x 3, cooperative, [place] II-XII nml as tested, normal mood/affect, sensation nml Skin Exam: pale Lymphatic Exam: No adenopathy SpO2 Interpretation: hypoxic SpO2: 85 O2 Delivery: Room Air Ordered Tests: Active Orders 24 hr Category Date Time Status EKG-ER Only STAT Care 04/09/24 16:34 Active IV Insertion STAT Care 04/09/24 16:34 Active Oxygen-ED Only Nasal Cannula 2 lpm Care 04/09/24 16:34 Active cath [Cath for Specimen-Straight] STAT Care 04/09/24 16:15 Active CHEST 1 VIEW (PORTABLE) Stat Exams 04/09/24 17:06 Taken VENOUS UNILAT/LIMITED EXTREMIT [US] Stat Exams 04/09/24 17:13 Stop Req BLOOD CULTURE Stat Lab 04/09/24 17:02 Received CBC W DIFF Stat Lab 04/09/24 16:10 Completed CMP Stat Lab 04/09/24 16:10 Completed CULTURE,URINE Stat Lab 04/09/24 16:15 Received CULTURE,URINE Stat Lab 04/09/24 16:15 Received LIPASE Stat Lab 04/09/24 16:10 Completed Lactic Acid Stat Lab 04/09/24 16:56 Completed MAGNESIUM Stat Lab 04/09/24 16:10 Completed NT PRO BNPII Stat Lab 04/09/24 16:10 Completed TROPONIN Q4H Lab 04/09/24 16:10 Completed TROPONIN Q4H Lab 04/09/24 20:45 Ordered TROPONIN Q4H Lab 04/10/24 00:45 Ordered UA W/RFX UR CULTURE Stat Lab 04/09/24 16:15 Completed Medication Summary Discontinued Medications Generic Name Dose Route Start Last Admin Trade Name Freq PRN Reason Stop Dose Admin Furosemide 40 mg 04/09/24 17:40 04/09/24 17:53 Furosemide 40 Mg/4 Ml Vial IV 04/09/24 17:41 40 mg STAT ONE Administration Furosemide Confirm 04/09/24 17:52 Furosemide 40 Mg/4 Ml Vial Administered 04/09/24 17:53 Dose 40 mg .ROUTE .STK-MED ONE Ceftriaxone Sodium 1 gm in 100 mls @ 200 mls/hr 04/09/24 16:36 04/09/24 17:11 Rocephin 1 Gm / 100 Ml Nacl IV 04/09/24 17:05 Infused STAT ONE Infusion Ceftriaxone Sodium Confirm 04/09/24 16:38 Rocephin 1 Gm / 100 Ml Nacl Administered 04/09/24 16:39 Dose 1 gm in 100 mls @ ud IV .STK-MED ONE Lab/Rad Data: Laboratory Result Diagrams 04/09/24 16:10 04/09/24 16:10 Laboratory Results 04/09/24 04/09/24 04/09/24 Range/Units 17:02 16:56 16:15 WBC (4.23-9.07) x10^3/uL RBC (4.63-6.08) x10^6/uL Hgb (13.7-17.5) g/dL Hct (40.1-51.0) % MCV (79.0-92.2) fL MCH (25.7-32.2) pg MCHC (32.3-36.5) g/dL RDW (11.6-14.4) % Plt Count (163-337) x10^3/uL MPV (9.4-12.4) fL Gran % (34.0-67.9) % Immature Gran % (Auto) (0.001-0.429) % Nucleat RBC Rel Count (0.00-0.2) % Eos # (Auto) (0.04-0.54) x10^3/uL Immature Gran # (Auto) (0.001-0.031) x10^3u/L Absolute Lymphs (auto) (1.32-3.57) x10^3/uL Absolute Monos (auto) (0.30-0.82) x10^3/uL Absolute Nucleated RBC (0.00-0.012) x10^3u/L Lymphocytes % (21.8-53.1) % Monocytes % (5.3-12.2) % Eosinophils % (0.8-7.0) % Basophils % (0.2-1.2) % Absolute Granulocytes (1.78-5.38) x10^3/uL Basophils # (0.01-0.08) x10^3/uL Sodium (135-145) mmol/L Potassium (3.5-5.1) mmol/L Chloride (98-107) mmol/L Carbon Dioxide (22-30) mmol/L Anion Gap (5-15) MEQ/L BUN (9-20) mg/dL Creatinine (0.66-1.25) mg/dL Estimated GFR ML/MIN Glucose (74-106) mg/dL Lactic Acid 1.5 (0.4-2.0) Calcium (8.4-10.2) mg/dL Magnesium (1.6-2.3) mg/dL Total Bilirubin (0.2-1.3) mg/dL AST (17-59) U/L ALT (0-50) U/L Alkaline Phosphatase (38-126) U/L Troponin I (0.000-0.033) ng/mL NT-Pro-B Natriuret Pep (<300) pg/mL Serum Total Protein (6.3-8.2) g/dL Albumin (3.5-5.0) g/dL Lipase (23-300) U/L Urine Color Yellow (Yellow) Urine Appearance Clear (Clear) Urine pH 5.5 (4.6-8.0) Ur Specific [place] 1.015 (1.005-1.030) Urine Protein Trace A (Negative) Urine Glucose (UA) Negative (Negative) mg/dL Urine Ketones Negative (Negative) Urine Blood Negative (Negative) Urine Nitrite Negative (Negative) Urine Bilirubin Negative (Negative) Urine Urobilinogen 1.0 A (0.2) mg/dL Ur Leukocyte Esterase Moderate A (Negative) U Hyaline Cast (Auto) NONE SEEN (0-2) /LPF Urine Microscopic RBC 0-2 (0-5) /HPF Urine Microscopic WBC 21-50 A (0-5) /HPF Ur Epithelial Cells Rare (None Seen) /HPF Urine Bacteria None Seen (None Seen) /HPF Urine Culture Reflexed YES (NO) Influenza Type A Ag NEGATIVE (NEGATIVE) Influenza Type B Ag NEGATIVE (NEGATIVE) RSV (PCR) NEGATIVE (NEGATIVE) SARS-CoV-2 (PCR) NEGATIVE (NEGATIVE) 04/09/24 04/09/24 04/09/24 Range/Units 16:10 16:10 16:10 WBC 10.2 H (4.23-9.07) x10^3/uL RBC 3.47 L (4.63-6.08) x10^6/uL Hgb 9.8 L (13.7-17.5) g/dL Hct 32.3 L (40.1-51.0) % MCV 93.1 H (79.0-92.2) fL MCH 28.2 (25.7-32.2) pg MCHC 30.3 L (32.3-36.5) g/dL RDW 13.9 (11.6-14.4) % Plt Count 465 H (163-337) x10^3/uL MPV 9.0 L (9.4-12.4) fL Gran % 73.1 H (34.0-67.9) % Immature Gran % (Auto) 0.4 (0.001-0.429) % Nucleat RBC Rel Count 0.0 (0.00-0.2) % Eos # (Auto) 0.39 (0.04-0.54) x10^3/uL Immature Gran # (Auto) 0.04 H (0.001-0.031) x10^3u/L Absolute Lymphs (auto) 1.27 L (1.32-3.57) x10^3/uL Absolute Monos (auto) 1.03 H (0.30-0.82) x10^3/uL Absolute Nucleated RBC 0.00 (0.00-0.012) x10^3u/L Lymphocytes % 12.5 L (21.8-53.1) % Monocytes % 10.1 (5.3-12.2) % Eosinophils % 3.8 (0.8-7.0) % Basophils % 0.1 L (0.2-1.2) % Absolute Granulocytes 7.43 H (1.78-5.38) x10^3/uL Basophils # 0.01 (0.01-0.08) x10^3/uL Sodium 137 (135-145) mmol/L Potassium 3.4 L (3.5-5.1) mmol/L Chloride 99 (98-107) mmol/L Carbon Dioxide 36 H (22-30) mmol/L Anion Gap 5.2 (5-15) MEQ/L BUN 17 (9-20) mg/dL Creatinine 0.91 (0.66-1.25) mg/dL Estimated GFR 81.6 ML/MIN Glucose 132 H (74-106) mg/dL Lactic Acid (0.4-2.0) Calcium 8.6 (8.4-10.2) mg/dL Magnesium 1.9 (1.6-2.3) mg/dL Total Bilirubin 0.60 (0.2-1.3) mg/dL AST 41 (17-59) U/L ALT 19 (0-50) U/L Alkaline Phosphatase 88 (38-126) U/L Troponin I < 0.012 (0.000-0.033) ng/mL NT-Pro-B Natriuret Pep 1210 (<300) pg/mL Serum Total Protein 6.3 (6.3-8.2) g/dL Albumin 2.6 L (3.5-5.0) g/dL Lipase < 10 L (23-300) U/L Urine Color (Yellow) Urine Appearance (Clear) Urine pH (4.6-8.0) Ur Specific [place] (1.005-1.030) Urine Protein (Negative) Urine Glucose (UA) (Negative) mg/dL Urine Ketones (Negative) Urine Blood (Negative) Urine Nitrite (Negative) Urine Bilirubin (Negative) Urine Urobilinogen (0.2) mg/dL Ur Leukocyte Esterase (Negative) U Hyaline Cast (Auto) (0-2) /LPF Urine Microscopic RBC (0-5) /HPF Urine Microscopic WBC (0-5) /HPF Ur Epithelial Cells (None Seen) /HPF Urine Bacteria (None Seen) /HPF Urine Culture Reflexed (NO) Influenza Type A Ag (NEGATIVE) Influenza Type B Ag (NEGATIVE) RSV (PCR) (NEGATIVE) SARS-CoV-2 (PCR) (NEGATIVE) - Progress Progress: unchanged, improved, re-examined Progress Note: 04/09/24 17:07 My medical decision making and the assignment of moderate to high complexity is based on review of the patient's past medical history, review of the patient's medication list, review the patient drug allergy list, history presents to physical findings on examination. The workup in this patient includes placement of intravenous line, CBC, CMP, BNP, troponin level, twelve-lead EKG, magnesium level, viral swabs and monotest. We will also perform a chest x-ray. I did not order D-dimer level as this patient's drug armamentarium includes full dose Eliquis and I believe the possibility of a pulmonary embolus is low. Differential diagnosis includes but is not limited to renal failure, CHF exacerbation, COPD exacerbation, pneumonia, electrolyte abnormality, urinary tract infection, arrhythmia 04/09/24 18:04 I interpreted the patient's laboratory data results. Based on the laboratory data results, the patient does not have an acute, emergent medical issue. 04/09/24 18:07 I interpreted the patient's preliminary report on the chest x-ray. I do not appreciate an acute cardiopulmonary process. There old, healed right rib fractures. Discussed with Dr.: Other (Juan Hays) Counseled pt/family regarding: lab results, diagnosis, need for follow-up, rad results Medical Desision Making - Independent Historian Additional History obtained from: Spouse - Diagnostic Testing Diagnostic test were ordered, analyzed, and reviewed by me: Yes Radiological Interpretation: Interpreted by me - Risk of complications The pt has a high risk of morbidity or mortality based on: Decision regarding hospitilization or escalation of hosp level of care - Departure Departure Disposition: Observation Clinical Impression: Weakness, Hypoxia, Chronic anemia, UTI (urinary tract infection) Condition: Fair Critical Care Time: No Referrals: MANJIT MALDONADO MD [Primary Care Provider] - Follow up/PCP as directed
[2024-04-09 16:47] LABS: Absolute Neutrophil Ct (ANC) 7.43 x10^3/uL (1.78-5.38); BASOPHIL % 0.1 % (0.2-1.2); Basophil (Absolute #) 0.01 x10^3/uL (0.01-0.08); Eosinophil % 3.8 % (0.8-7.0); Eosinophil (Absolute #) 0.39 x10^3/uL (0.04-0.54); Hematocrit 32.3 % (40.1-51.0); Hemoglobin 9.8 g/dL (13.7-17.5); IMMATURE GRAN # 0.04 x10^3u/L (0.001-0.031); IMMATURE GRAN % 0.4 % (0.001-0.429); Lymphocyte (Absolute #) 1.27 x10^3/uL (1.32-3.57); Lymphocytes % 12.5 % (21.8-53.1); Mean Cell Volume 93.1 fL (79.0-92.2); Mean Corpuscular Hemoglobin 28.2 pg (25.7-32.2); Mean Corpuscular Hgb Concent. 30.3 g/dL (32.3-36.5); Monocyte (Absolute #) 1.03 x10^3/uL (0.30-0.82); Monocytes % 10.1 % (5.3-12.2); Neutrophil % 73.1 % (34.0-67.9); Platelet Count 465 x10^3/uL (163-337); Red Blood Count 3.47 x10^6/uL (4.63-6.08); Red Cell Distribution Width 13.9 % (11.6-14.4); White Blood Count 10.2 x10^3/uL (4.23-9.07)
[2024-04-09 17:25] LABS: ALBUMIN 2.6 g/dL (3.5-5.0); ALKALINE PHOSPHATASE 88 U/L (38-126); ANION GAP 5.2 MEQ/L (5-15); BLOOD UREA NITROGEN 17 mg/dL (9-20); CHLORIDE 99 mmol/L (98-107); Calcium 8.6 mg/dL (8.4-10.2); Carbon Dioxide 36 mmol/L (22-30); Creatinine 1 0.91 mg/dL (0.66-1.25); EST GLOMERULAR FILTRATION RATE 81.6 ML/MIN; Glucose 132 mg/dL (74-106); MAGNESIUM 1.9 mg/dL (1.6-2.3); NT PRO BNPII 1210 pg/mL (<300); Potassium 3.4 mmol/L (3.5-5.1); SGOT/AST 41 U/L (17-59); SGPT/ALT 19 U/L (0-50); SODIUM 137 mmol/L (135-145); Total Protein 6.3 g/dL (6.3-8.2)
[2024-04-09 17:28] LABS: LIPASE < 10 U/L (23-300)
[2024-04-09 17:41] LABS: INFLUENZA A NEGATIVE (NEGATIVE); INFLUENZA B NEGATIVE (NEGATIVE); RESPIRATORY SYNCTIAL VIRUS NEGATIVE (NEGATIVE); SARS-CoV-2 Xpert Express NEGATIVE (NEGATIVE)
[2024-04-09] MEDS ORDERED: Lasix 40 MG/4 ML ONE (17:52)
[2024-04-09] MEDS: Lasix 40 MG/4 ML IV ONE (17:53)
--- NOTE | 2024-04-09 18:52 | XRAY ---
Indication: Short of breath. Comparison: March 13, 2024 Portable chest better inflated and remains clear. Heart not enlarged again with tortuous descending aorta. Bony thorax intact again with osteopenia, degenerative changes, old right rib fractures, and bilateral shoulder arthroplasty. Impression: Continued nonacute chest with chronic features.
[2024-04-09] MEDS ORDERED: TYLENOL 325 MG PO PRN (19:46)
[2024-04-09] MEDS ORDERED: Zofran 4 MG/2 ML VIAL IV PRN (19:46)
[2024-04-09] MEDS: Sodium Chloride 0.9% 1000 ML 1,000 ML IV SCH (20:51)
[2024-04-09] MEDS ORDERED: NORCO 10-325 MG PO PRN (21:34)
[2024-04-09] MEDS ORDERED: NON-FORMULARY ITEM (Albuterol Sulfate [Proair Respiclick] 90 MCG Aer.Pow.Ba) IH SCH (21:45)
--- NOTE | 2024-04-09 21:46 | PCM.HP ---
History of Present Illness - Chief Complaint Chief Complaint: UTI, Weakness Date: 04/09/24 History of Present Illness: 88 years old very pleasant male hard to hear past medical history significant for hypertension hyperlipidemia, atrial fibrillation on Eliquis, chronic back pain narcotic dependent, history of bladder cancer, anxiety bipolar, brought to ER by for increased fatigue/and leg swelling. Of note patient is very hard to hear and I was not able to complete review of system. Most of the information obtained from ER chart review, I tried to call his twice but no response. Patient is at 2 L oxygen at night and as needed during daytime, he was getting more short of breath with leg swelling lately. Did complain of some chills as well. No nausea vomiting chest pain no decreased p.o. intake reported. In the ER vital signs were pretty stable as well as blood workup consent white cell count within normal range, potassium 3.4, NT proBNP 1216, troponin within normal range, chest x-ray completely unremarkable urine was positive for moderate leukocyte Estrace and 21-50 WBCs, received 40 mg Lasix in ER and admitted for further care, - Review of Systems All Other Systems: Reviewed and Negative Medications & Allergies Home Medications: Home Medication List Ferrous Sulfate 325 mg PO BID 02/20/22 [History Confirmed 04/09/24] Multivitamin [Multi-Vitamin Daily] 1 tab PO DAILY 02/20/22 [History Confirmed 04/09/24] Olanzapine 5 mg [zyPREXA 5MG TABLET] 5 mg PO HS 02/20/22 [History Confirmed 04/09/24] Dorzolamide HCl/Pf [Dorzolamide 2% Eye Drop] 1 drop OP BID 05/21/22 [History Confirmed 04/09/24] Apixaban [Eliquis 5 mg Tablet] 2.5 mg PO BID 06/02/22 [History Confirmed 04/09/24] Clonidine HCl 0.1 mg [Clonidine 0.1 mg Tablet] 0.2 mg PO TID 06/02/22 [History Confirmed 04/09/24] Furosemide 40 mg [Lasix 40 MG] 40 mg PO BID 06/02/22 [History Confirmed 04/09/24] Metoprolol Tartrate 50 mg [Lopressor 50 MG] 75 mg PO BID 06/02/22 [History Confirmed 04/09/24] Potassium Chloride [Klor-Con 10] 10 meq PO BID 06/02/22 [History Confirmed 04/09/24] Sertraline HCl 100 mg PO DAILY 06/02/22 [History Confirmed 04/09/24] Tamsulosin HCl 0.4 mg [Flomax 0.4 MG] 0.4 mg PO HS 06/02/22 [History Confirmed 04/09/24] Hydrocodone/Acetaminophen [Hydrocodone-Acetamin 10-325 mg] 1 tab PO Q6H PRN PRN 10/30/22 [History Confirmed 04/09/24] Lisinopril 10 mg [Zestril 10 MG] 10 mg PO BID 10/30/22 [History Confirmed 04/09/24] Albuterol Sulfate [Proair Respiclick] 90 mcg IH UD 12/02/22 [History Confirmed 04/09/24] Magnesium Oxide 400 mg [Mag-Ox 400] 400 mg PO DAILY 12/02/22 [History Confirmed 04/09/24] Timolol Maleate/Pf [Timolol Maleate 0.5% Eye Drop] 1 drop OP BID 12/03/22 [History Confirmed 04/09/24] Naloxone HCl [Narcan] 4 mg IN UD 05/25/23 [History Confirmed 04/09/24] Amlodipine Besylate [Norvasc] 5 mg PO DAILY 07/01/23 [History Confirmed 04/09/24] PANTOPRAZOLE 40 mg Tablet [Protonix 40MG Tablet] 40 mg PO BID 07/01/23 [History Confirmed 04/09/24] Ergocalciferol (Vitamin D2) [Vitamin D2] 1 tab PO DAILY 04/09/24 [History Confirmed 04/09/24] Morphine Sulfate [Morphine Sulfate ER] 15 mg PO HS 04/09/24 [History Confirmed 04/09/24] Morphine Sulfate [Morphine Sulfate ER] 30 mg PO BID 04/09/24 [History Confirmed 04/09/24] Allergies/Adverse Reactions: Allergies Allergy/AdvReac Type Severity Reaction Status Date / Time No Known Allergies Allergy Verified 04/09/24 20:29 - Past Medical History Past Medical History: Yes Neurological History: Migraines ENT History: Cataracts Cardiac History: Arrhythmia, Congestive Heart Failure, Hypertension Respiratory History: CHF Endocrine Medical History: No Pertinent History Musculoskelatal History: Arthritis GI Medical History: Ulcer, Other History: Bladder Cancer Pyscho-Social History: Depression Male Reproductive Disorders: No Pertinent History Comment: bladder cancer 2011. home oxygen at bedtime - Past Surgical History Past Surgical History: Yes Neuro Surgical History: No Pertinent History Cardiac History: No Pertinent History Respiratory Surgery: No Pertinent History GI Surgical History: Other Genitourinary Surgical Hx: Other Musculskeletal Surgical Hx: Orthopedic Surgery Male Surgical History: No Pertinent History Other Surgical History: Bilateral hip replacement, Bilateral shoulder replacement, bladder biopsy Significant Family History: no pertinent family hx - Social History Smoking Status: Never smoker Exposure to second hand smoke: No Alcohol: None Drug Use: none - Social Determinants of Health Will the patient participate in the screening: Yes Do you worry about a steady place to live?: No Do you have any problems with any of the following?: No known problems In the past 12 months,have you had to go without utilities?: No Have you or anyone in your house had to go without enough: No Transportation Issues: No Has anyone in your support network made you feel unsafe?: No Does the patient want assistance with any of the above?: No - Physical Exam Vital Signs: Vital Signs - 24 hr Temp Pulse Resp BP BP Pulse Ox 04/09/24 20:06 96.9 F 66 22 140/79 95 04/09/24 19:46 95 04/09/24 19:00 61 21 114/49 98 04/09/24 18:30 62 13 105/50 98 04/09/24 18:26 85 L 04/09/24 18:00 61 16 118/54 98 04/09/24 17:30 66 15 123/60 98 04/09/24 17:00 70 11 L 123/57 97 04/09/24 16:02 98.7 F 78 30 H 145/60 85 L Additional Findings: 04/09/24 21:44 HEENT Very old aged, average built in no distress, on 2 liters to keep sats > 90 % NECK Supple,no thyromegaly, CVS S1+S2 + 0, no murmers RESP Bilateral decreased air entry without Crepts/Wheezes heard GIT Soft non tender,non distended Skin, No rah, no Bruises LEGS Minimal non pitting Edema PSYCH Normal,mood, judgement and insight NEURO AOX3, no focal deficit Results - Labs Lab/Micro Results: Lab Results-Last 24 Hours 04/09/24 04/09/24 04/09/24 Range/Units 16:10 16:10 16:10 WBC 10.2 H (4.23-9.07) x10^3/uL RBC 3.47 L (4.63-6.08) x10^6/uL Hgb 9.8 L (13.7-17.5) g/dL Hct 32.3 L (40.1-51.0) % MCV 93.1 H (79.0-92.2) fL MCH 28.2 (25.7-32.2) pg MCHC 30.3 L (32.3-36.5) g/dL RDW 13.9 (11.6-14.4) % Plt Count 465 H (163-337) x10^3/uL MPV 9.0 L (9.4-12.4) fL Gran % 73.1 H (34.0-67.9) % Immature Gran % (Auto) 0.4 (0.001-0.429) % Nucleat RBC Rel Count 0.0 (0.00-0.2) % Eos # (Auto) 0.39 (0.04-0.54) x10^3/uL Immature Gran # (Auto) 0.04 H (0.001-0.031) x10^3u/L Absolute Lymphs (auto) 1.27 L (1.32-3.57) x10^3/uL Absolute Monos (auto) 1.03 H (0.30-0.82) x10^3/uL Absolute Nucleated RBC 0.00 (0.00-0.012) x10^3u/L Lymphocytes % 12.5 L (21.8-53.1) % Monocytes % 10.1 (5.3-12.2) % Eosinophils % 3.8 (0.8-7.0) % Basophils % 0.1 L (0.2-1.2) % Absolute Granulocytes 7.43 H (1.78-5.38) x10^3/uL Basophils # 0.01 (0.01-0.08) x10^3/uL Sodium 137 (135-145) mmol/L Potassium 3.4 L (3.5-5.1) mmol/L Chloride 99 (98-107) mmol/L Carbon Dioxide 36 H (22-30) mmol/L Anion Gap 5.2 (5-15) MEQ/L BUN 17 (9-20) mg/dL Creatinine 0.91 (0.66-1.25) mg/dL Estimated GFR 81.6 ML/MIN Glucose 132 H (74-106) mg/dL Lactic Acid (0.4-2.0) Calcium 8.6 (8.4-10.2) mg/dL Magnesium 1.9 (1.6-2.3) mg/dL Total Bilirubin 0.60 (0.2-1.3) mg/dL AST 41 (17-59) U/L ALT 19 (0-50) U/L Alkaline Phosphatase 88 (38-126) U/L Troponin I < 0.012 (0.000-0.033) ng/mL NT-Pro-B Natriuret Pep 1210 (<300) pg/mL Serum Total Protein 6.3 (6.3-8.2) g/dL Albumin 2.6 L (3.5-5.0) g/dL Lipase < 10 L (23-300) U/L Urine Color (Yellow) Urine Appearance (Clear) Urine pH (4.6-8.0) Ur Specific [place] (1.005-1.030) Urine Protein (Negative) Urine Glucose (UA) (Negative) mg/dL Urine Ketones (Negative) Urine Blood (Negative) Urine Nitrite (Negative) Urine Bilirubin (Negative) Urine Urobilinogen (0.2) mg/dL Ur Leukocyte Esterase (Negative) U Hyaline Cast (Auto) (0-2) /LPF Urine Microscopic RBC (0-5) /HPF Urine Microscopic WBC (0-5) /HPF Ur Epithelial Cells (None Seen) /HPF Urine Bacteria (None Seen) /HPF Urine Culture Reflexed (NO) Influenza Type A Ag (NEGATIVE) Influenza Type B Ag (NEGATIVE) RSV (PCR) (NEGATIVE) SARS-CoV-2 (PCR) (NEGATIVE) 04/09/24 04/09/24 04/09/24 Range/Units 16:15 16:56 17:02 WBC (4.23-9.07) x10^3/uL RBC (4.63-6.08) x10^6/uL Hgb (13.7-17.5) g/dL Hct (40.1-51.0) % MCV (79.0-92.2) fL MCH (25.7-32.2) pg MCHC (32.3-36.5) g/dL RDW (11.6-14.4) % Plt Count (163-337) x10^3/uL MPV (9.4-12.4) fL Gran % (34.0-67.9) % Immature Gran % (Auto) (0.001-0.429) % Nucleat RBC Rel Count (0.00-0.2) % Eos # (Auto) (0.04-0.54) x10^3/uL Immature Gran # (Auto) (0.001-0.031) x10^3u/L Absolute Lymphs (auto) (1.32-3.57) x10^3/uL Absolute Monos (auto) (0.30-0.82) x10^3/uL Absolute Nucleated RBC (0.00-0.012) x10^3u/L Lymphocytes % (21.8-53.1) % Monocytes % (5.3-12.2) % Eosinophils % (0.8-7.0) % Basophils % (0.2-1.2) % Absolute Granulocytes (1.78-5.38) x10^3/uL Basophils # (0.01-0.08) x10^3/uL Sodium (135-145) mmol/L Potassium (3.5-5.1) mmol/L Chloride (98-107) mmol/L Carbon Dioxide (22-30) mmol/L Anion Gap (5-15) MEQ/L BUN (9-20) mg/dL Creatinine (0.66-1.25) mg/dL Estimated GFR ML/MIN Glucose (74-106) mg/dL Lactic Acid 1.5 (0.4-2.0) Calcium (8.4-10.2) mg/dL Magnesium (1.6-2.3) mg/dL Total Bilirubin (0.2-1.3) mg/dL AST (17-59) U/L ALT (0-50) U/L Alkaline Phosphatase (38-126) U/L Troponin I (0.000-0.033) ng/mL NT-Pro-B Natriuret Pep (<300) pg/mL Serum Total Protein (6.3-8.2) g/dL Albumin (3.5-5.0) g/dL Lipase (23-300) U/L Urine Color Yellow (Yellow) Urine Appearance Clear (Clear) Urine pH 5.5 (4.6-8.0) Ur Specific [place] 1.015 (1.005-1.030) Urine Protein Trace A (Negative) Urine Glucose (UA) Negative (Negative) mg/dL Urine Ketones Negative (Negative) Urine Blood Negative (Negative) Urine Nitrite Negative (Negative) Urine Bilirubin Negative (Negative) Urine Urobilinogen 1.0 A (0.2) mg/dL Ur Leukocyte Esterase Moderate A (Negative) U Hyaline Cast (Auto) NONE SEEN (0-2) /LPF Urine Microscopic RBC 0-2 (0-5) /HPF Urine Microscopic WBC 21-50 A (0-5) /HPF Ur Epithelial Cells Rare (None Seen) /HPF Urine Bacteria None Seen (None Seen) /HPF Urine Culture Reflexed YES (NO) Influenza Type A Ag NEGATIVE (NEGATIVE) Influenza Type B Ag NEGATIVE (NEGATIVE) RSV (PCR) NEGATIVE (NEGATIVE) SARS-CoV-2 (PCR) NEGATIVE (NEGATIVE) 04/09/24 Range/Units 20:56 WBC (4.23-9.07) x10^3/uL RBC (4.63-6.08) x10^6/uL Hgb (13.7-17.5) g/dL Hct (40.1-51.0) % MCV (79.0-92.2) fL MCH (25.7-32.2) pg MCHC (32.3-36.5) g/dL RDW (11.6-14.4) % Plt Count (163-337) x10^3/uL MPV (9.4-12.4) fL Gran % (34.0-67.9) % Immature Gran % (Auto) (0.001-0.429) % Nucleat RBC Rel Count (0.00-0.2) % Eos # (Auto) (0.04-0.54) x10^3/uL Immature Gran # (Auto) (0.001-0.031) x10^3u/L Absolute Lymphs (auto) (1.32-3.57) x10^3/uL Absolute Monos (auto) (0.30-0.82) x10^3/uL Absolute Nucleated RBC (0.00-0.012) x10^3u/L Lymphocytes % (21.8-53.1) % Monocytes % (5.3-12.2) % Eosinophils % (0.8-7.0) % Basophils % (0.2-1.2) % Absolute Granulocytes (1.78-5.38) x10^3/uL Basophils # (0.01-0.08) x10^3/uL Sodium (135-145) mmol/L Potassium (3.5-5.1) mmol/L Chloride (98-107) mmol/L Carbon Dioxide (22-30) mmol/L Anion Gap (5-15) MEQ/L BUN (9-20) mg/dL Creatinine (0.66-1.25) mg/dL Estimated GFR ML/MIN Glucose (74-106) mg/dL Lactic Acid (0.4-2.0) Calcium (8.4-10.2) mg/dL Magnesium (1.6-2.3) mg/dL Total Bilirubin (0.2-1.3) mg/dL AST (17-59) U/L ALT (0-50) U/L Alkaline Phosphatase (38-126) U/L Troponin I < 0.012 (0.000-0.033) ng/mL NT-Pro-B Natriuret Pep (<300) pg/mL Serum Total Protein (6.3-8.2) g/dL Albumin (3.5-5.0) g/dL Lipase (23-300) U/L Urine Color (Yellow) Urine Appearance (Clear) Urine pH (4.6-8.0) Ur Specific [place] (1.005-1.030) Urine Protein (Negative) Urine Glucose (UA) (Negative) mg/dL Urine Ketones (Negative) Urine Blood (Negative) Urine Nitrite (Negative) Urine Bilirubin (Negative) Urine Urobilinogen (0.2) mg/dL Ur Leukocyte Esterase (Negative) U Hyaline Cast (Auto) (0-2) /LPF Urine Microscopic RBC (0-5) /HPF Urine Microscopic WBC (0-5) /HPF Ur Epithelial Cells (None Seen) /HPF Urine Bacteria (None Seen) /HPF Urine Culture Reflexed (NO) Influenza Type A Ag (NEGATIVE) Influenza Type B Ag (NEGATIVE) RSV (PCR) (NEGATIVE) SARS-CoV-2 (PCR) (NEGATIVE) - Radiology Impressions Radiology Exams & Impressions: Radiology Procedures Category Date Time Status CHEST 1 VIEW (PORTABLE) Stat Exams 04/09/24 17:06 Completed - Other Procedures and Tests Respiratory Therapy 04/09/24 19:46 EKG REPEAT IN AM Respiratory Therapy Consult ONCE Assessment/Plan (1) UTI (urinary tract infection) Current Visit: Yes Status: Acute Qualifiers: Code(s): N39.0 - URINARY TRACT INFECTION, SITE NOT SPECIFIED (2) Weakness Current Visit: Yes Status: Acute Code(s): R53.1 - WEAKNESS (3) Atrial fibrillation Current Visit: No Status: Acute Code(s): I48.91 - UNSPECIFIED ATRIAL FIBRILLATION (4) Acute diastolic (congestive) heart failure Current Visit: Yes Status: Acute Code(s): I50.31 - ACUTE DIASTOLIC (CONGESTIVE) HEART FAILURE Telemedicine Encounter - Telemedicine Encounter Telemedicine Encounter: The entirety of this encounter was performed via Telemedicine" This visit was performed using real-time audio and video connection between my location and thepatients locationwith the assistance of a surrogateat the patients location. Written or verbal consent was obtained from the patient/guardian to perform this visit using[employer] [facility] [employer] technology. Any patient questions regarding the telemedicine interaction were answered. Acute hypoxemic respiratory failure Patient is on 2 L oxygen only at night and as needed during the daytime, he was desaturating in ER has to be placed on 2 L to keep sats more than 90% Seems due to fluid overload Acute diastolic congestive heart failure Admitted with shortness of breath increased leg swelling lately NT-proBNP running high, troponin negative X-ray unremarkable Given 1 stat dose 40 mg Lasix IV in ER I will continue 40 mg Lasix IV twice daily Fluid restriction and low-salt diet to be continued Echocardiogram back in 2022 showed 65% ejection fraction with mild diastolic dysfunction Consider repeating echo in the morning Generalized weakness Due to CHF/UTI Will check vitamin B12, vitamin D and TSH PT OT evaluation Urinary tract infection Urine positive for moderate leukocyte esterase and 21-30 WBCs Continue ceftriaxone Keep following up cultures Hypertension Blood pressure stable Will resume home blood pressure meds Chronic atrial fibrillation Status post ablation in the last Continue beta-blockers Continue Eliquis Anxiety/bipolar continue sertraline Continue Olanzapine Chronic back pain Continue morphine sulfate and hydrocodone as per need for breakthrough pain History of bladder cancer Seems in remission Unable to obtain exact status as 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 I have reviewed patient lab vitals and imaging in detail all question and concerns were addressed. I tried to call twice but she did not respond I called
[2024-04-09] MEDS: Lasix 40 MG/4 ML IV SCH (22:01)
[2024-04-09] MEDS ORDERED: TIMOPTIC 0.5% 5 ML OPHTHALMIC OP ONE (22:05)
[2024-04-09] MEDS ORDERED: ELIQUIS 2.5 MG TABLET ONE (22:07)
[2024-04-09] MEDS ORDERED: Lopressor 25MG Tab ONE (22:07)
[2024-04-09] MEDS: FEOSOL 325 MG PO SCH (22:08)
[2024-04-09] MEDS: Lopressor 50 MG PO SCH (22:09)
[2024-04-09] MEDS: Zestril 10 MG PO SCH (22:09)
[2024-04-09] MEDS: CLONIDINE 0.1 MG TABLET PO SCH (22:09)
[2024-04-09] MEDS: Ms Contin 15 MG PO SCH (22:10)
[2024-04-09] MEDS: Protonix 40MG Tablet PO SCH (22:10)
[2024-04-09] MEDS: Flomax 0.4 MG PO SCH (22:10)
[2024-04-09] MEDS: zyPREXA 5MG TABLET PO SCH (22:10)
[2024-04-09] MEDS: Klor Con PO SCH (22:10)
[2024-04-09] MEDS: NON-FORMULARY ITEM (Apixaban*** [Eliquis 5 Mg Tablet***] 5 MG Tablet) PO SCH (22:11)
[2024-04-09] MEDS: NON-FORMULARY ITEM (Morphine Sulfate [Morphine Sulfate Er] 30 MG Tablet.Er) PO SCH (22:12)
[2024-04-09] MEDS: NON-FORMULARY ITEM (Dorzolamide Hcl/Pf [Dorzolamide 2% Eye Drop] 10 ML Drops) OP SCH (22:19)
[2024-04-09] MEDS: [UNRECOGNIZED DRUG - OTHER] OP SCH (22:19)
[2024-04-10] MEDS: Klor Con PO ONE (00:12)
[2024-04-10 02:06] LABS: Hematocrit 28.6 % (40.1-51.0); Hemoglobin 8.6 g/dL (13.7-17.5); Mean Cell Volume 93.5 fL (79.0-92.2); Mean Corpuscular Hemoglobin 28.1 pg (25.7-32.2); Mean Corpuscular Hgb Concent. 30.1 g/dL (32.3-36.5); Platelet Count 367 x10^3/uL (163-337); Red Blood Count 3.06 x10^6/uL (4.63-6.08)
[2024-04-10 02:26] LABS: ANION GAP 5.2 MEQ/L (5-15); Calcium 8.4 mg/dL (8.4-10.2); Creatinine 1 0.86 mg/dL (0.66-1.25); EST GLOMERULAR FILTRATION RATE 83.8 ML/MIN; PREALBUMIN 6.78 mg/dL (17.6-36.0); Potassium 3.6 mmol/L (3.5-5.1)
[2024-04-10] MEDS ORDERED: VENTOLIN COMMON CANISTER IH PRN (07:17)
[2024-04-10 07:24] VITALS: RESP 16
[2024-04-10] MEDS ORDERED: MEDICATION INTERVENTION MC SCH (07:30)
[2024-04-10] MEDS: ELIQUIS 2.5 MG TABLET PO SCH (07:31)
[2024-04-10] MEDS: Lasix 40 MG/4 ML IV SCH (08:35)
[2024-04-10] MEDS: MAG-OX 400 PO SCH (08:36)
[2024-04-10] MEDS: NORVASC 5 MG PO SCH (08:36)
[2024-04-10] MEDS: Ms Contin 15 MG PO SCH (08:36)
[2024-04-10] MEDS: ZOLOFT 50 MG TABLET PO SCH (08:37)
[2024-04-10] MEDS: THERAGRAN MULTIVITAMIN PO SCH (08:37)
[2024-04-10] MEDS: TIMOPTIC 0.5% 5 ML OPHTHALMIC OP SCH (08:38)
[2024-04-10] MEDS: ROCEPHIN 1 GM / 100 ML NaCl 1 GM/100 ML IVPB IV SCH (08:38)
[2024-04-10] MEDS ORDERED: NON-FORMULARY ITEM (Multivitamin [Multi-Vitamin Daily] 1 EACH Tablet) PO SCH (10:00)
[2024-04-10] MEDS ORDERED: ROCEPHIN 1 GM / 100 ML NaCl 1 GM/100 ML IVPB IV SCH (10:00)
[2024-04-10] MEDS ORDERED: NON-FORMULARY ITEM (Sertraline Hcl [Sertraline Hcl] 100 MG Tablet) PO SCH (10:00)
[2024-04-10] MEDS ORDERED: VITAMIN D2 PO SCH (10:00)
[2024-04-10 10:54] VITALS: O2SAT 93
--- NOTE | 2024-04-10 11:16 | PCM.DS ---
Discharge Summary Date of Admission: 04/09/24 20:00 Date of Discharge: 04/10/24 Admitting Physician: NISH MORRISSEY MD Primary Care Provider: MANJIT MALDONADO Allergies Allergies No Known Allergies Allergy (Verified 04/09/24 20:29) Hospital Summary - Hospital Course Hospital Course: 04/10/24 88 years old very pleasant male hard to hear past medical history significant for hypertension hyperlipidemia, atrial fibrillation on Eliquis, chronic back pain narcotic dependent, history of bladder cancer, anxiety bipolar. He was brought to ER by for increased fatigue/and leg swelling. Patient is at 2 L oxygen at night and as needed during daytime, he was getting more short of breath with leg swelling lately. Did complain of some chills as well. No na usea, vomiting, chest pain, no decreased p.o. intake reported. In the ER vital signs were pretty stable as well as blood workup consent white cell count within normal range, potassium 3.4, NT proBNP 1216, troponin within normal range, chest x-ray completely unremarkable urine was positive for moderate leukocyte Estrace and 21-50 WBCs, received 40 mg Lasix in ER and admitted for further care. He was started on antibiotics for UTI. UC negative. Will not continue antibiotics OP. Pt did well walking with staff today and used walker as he does at home. He is wanting to go home today. Case management to discuss plan of care with as she was wanting placement. However at this time he does not meet requirements. He denies any further concerns at this time. - Vitals & Intake/Output Vital Signs: Vital Signs Temperature 97.8 F 04/10/24 10:53 Pulse Rate 61 04/10/24 10:53 Respiratory Rate 16 04/10/24 10:53 Blood Pressure 157/70 04/10/24 10:53 O2 Sat by Pulse Oximetry 93 L 04/10/24 10:53 Intake & Output: Intake & Output 04/07/24 04/08/24 04/09/24 04/10/24 11:59 11:59 11:59 11:59 Intake Total 818 Output Total 700 Balance 118 Weight 84.5 kg - Lab Result Diagrams: 04/10/24 01:30 04/10/24 01:30 Lab Results-Last 24 Hrs: Lab Results-Last 24 Hours 04/09/24 04/09/2424 Range/Units 01:30 01:30 01:30 WBC (4.23-9.07) x10^3/uL RBC (4.63-6.08) x10^6/uL Hgb (13.7-17.5) g/dL Hct (40.1-51.0) % MCV (79.0-92.2) fL MCH (25.7-32.2) pg MCHC (32.3-36.5) g/dL RDW (11.6-14.4) % Plt Count (163-337) x10^3/uL MPV (9.4-12.4) fL Gran % (34.0-67.9) % Immature Gran % (Auto) (0.001-0.429) % Nucleat RBC Rel Count (0.00-0.2) % Eos # (Auto) (0.04-0.54) x10^3/uL Immature Gran # (Auto) (0.001-0.031) x10^3u/L Absolute Lymphs (auto) (1.32-3.57) x10^3/uL Absolute Monos (auto) (0.30-0.82) x10^3/uL Absolute Nucleated RBC (0.00-0.012) x10^3u/L Lymphocytes % (21.8-53.1) % Monocytes % (5.3-12.2) % Eosinophils % (0.8-7.0) % Basophils % (0.2-1.2) % Absolute Granulocytes (1.78-5.38) x10^3/uL Basophils # (0.01-0.08) x10^3/uL Sodium (135-145) mmol/L Potassium (3.5-5.1) mmol/L Chloride (98-107) mmol/L Carbon Dioxide (22-30) mmol/L Anion Gap (5-15) MEQ/L BUN (9-20) mg/dL Creatinine (0.66-1.25) mg/dL Estimated GFR ML/MIN Glucose (74-106) mg/dL Lactic Acid (0.4-2.0) Calcium (8.4-10.2) mg/dL Magnesium (1.6-2.3) mg/dL Total Bilirubin (0.2-1.3) mg/dL AST (17-59) U/L ALT (0-50) U/L Alkaline Phosphatase (38-126) U/L Troponin I (0.000-0.033) ng/mL NT-Pro-B Natriuret Pep (<300) pg/mL Serum Total Protein (6.3-8.2) g/dL Albumin (3.5-5.0) g/dL Prealbumin (17.6-36.0) mg/dL Lipase (23-300) U/L Vitamin B12 800 (239-931) pg/mL 25-OH Vitamin D Total 26.9 L (30-100) ng/mL TSH 3rd Generation 0.620 (0.470-4.680) mIU/L Urine Color (Yellow) Urine Appearance (Clear) Urine pH (4.6-8.0) Ur Specific [place] (1.005-1.030) Urine Protein (Negative) Urine Glucose (UA) (Negative) mg/dL Urine Ketones (Negative) Urine Blood (Negative) Urine Nitrite (Negative) Urine Bilirubin (Negative) Urine Urobilinogen (0.2) mg/dL Ur Leukocyte Esterase (Negative) U Hyaline Cast (Auto) (0-2) /LPF Urine Microscopic RBC (0-5) /HPF Urine Microscopic WBC (0-5) /HPF Ur Epithelial Cells (None Seen) /HPF Urine Bacteria (None Seen) /HPF Urine Culture Reflexed (NO) Influenza Type A Ag (NEGATIVE) Influenza Type B Ag (NEGATIVE) RSV (PCR) (NEGATIVE) SARS-CoV-2 (PCR) (NEGATIVE) 04/09/24 04/09/24 04/09/24 Range/Units 16:10 16:10 16:10 WBC 10.2 H (4.23-9.07) x10^3/uL RBC 3.47 L (4.63-6.08) x10^6/uL Hgb 9.8 L (13.7-17.5) g/dL Hct 32.3 L (40.1-51.0) % MCV 93.1 H (79.0-92.2) fL MCH 28.2 (25.7-32.2) pg MCHC 30.3 L (32.3-36.5) g/dL RDW 13.9 (11.6-14.4) % Plt Count 465 H (163-337) x10^3/uL MPV 9.0 L (9.4-12.4) fL Gran % 73.1 H (34.0-67.9) % Immature Gran % (Auto) 0.4 (0.001-0.429) % Nucleat RBC Rel Count 0.0 (0.00-0.2) % Eos # (Auto) 0.39 (0.04-0.54) x10^3/uL Immature Gran # (Auto) 0.04 H (0.001-0.031) x10^3u/L Absolute Lymphs (auto) 1.27 L (1.32-3.57) x10^3/uL Absolute Monos (auto) 1.03 H (0.30-0.82) x10^3/uL Absolute Nucleated RBC 0.00 (0.00-0.012) x10^3u/L Lymphocytes % 12.5 L (21.8-53.1) % Monocytes % 10.1 (5.3-12.2) % Eosinophils % 3.8 (0.8-7.0) % Basophils % 0.1 L (0.2-1.2) % Absolute Granulocytes 7.43 H (1.78-5.38) x10^3/uL Basophils # 0.01 (0.01-0.08) x10^3/uL Sodium 137 (135-145) mmol/L Potassium 3.4 L (3.5-5.1) mmol/L Chloride 99 (98-107) mmol/L Carbon Dioxide 36 H (22-30) mmol/L Anion Gap 5.2 (5-15) MEQ/L BUN 17 (9-20) mg/dL Creatinine 0.91 (0.66-1.25) mg/dL Estimated GFR 81.6 ML/MIN Glucose 132 H (74-106) mg/dL Lactic Acid (0.4-2.0) Calcium 8.6 (8.4-10.2) mg/dL Magnesium 1.9 (1.6-2.3) mg/dL Total Bilirubin 0.60 (0.2-1.3) mg/dL AST 41 (17-59) U/L ALT 19 (0-50) U/L Alkaline Phosphatase 88 (38-126) U/L Troponin I < 0.012 (0.000-0.033) ng/mL NT-Pro-B Natriuret Pep 1210 (<300) pg/mL Serum Total Protein 6.3 (6.3-8.2) g/dL Albumin 2.6 L (3.5-5.0) g/dL Prealbumin (17.6-36.0) mg/dL Lipase < 10 L (23-300) U/L Vitamin B12 (239-931) pg/mL 25-OH Vitamin D Total (30-100) ng/mL TSH 3rd Generation (0.470-4.680) mIU/L Urine Color (Yellow) Urine Appearance (Clear) Urine pH (4.6-8.0) Ur Specific [place] (1.005-1.030) Urine Protein (Negative) Urine Glucose (UA) (Negative) mg/dL Urine Ketones (Negative) Urine Blood (Negative) Urine Nitrite (Negative) Urine Bilirubin (Negative) Urine Urobilinogen (0.2) mg/dL Ur Leukocyte Esterase (Negative) U Hyaline Cast (Auto) (0-2) /LPF Urine Microscopic RBC (0-5) /HPF Urine Microscopic WBC (0-5) /HPF Ur Epithelial Cells (None Seen) /HPF Urine Bacteria (None Seen) /HPF Urine Culture Reflexed (NO) Influenza Type A Ag (NEGATIVE) Influenza Type B Ag (NEGATIVE) RSV (PCR) (NEGATIVE) SARS-CoV-2 (PCR) (NEGATIVE) 04/09/24 04/09/24 04/09/24 Range/Units 16:15 16:56 17:02 WBC (4.23-9.07) x10^3/uL RBC (4.63-6.08) x10^6/uL Hgb (13.7-17.5) g/dL Hct (40.1-51.0) % MCV (79.0-92.2) fL MCH (25.7-32.2) pg MCHC (32.3-36.5) g/dL RDW (11.6-14.4) % Plt Count (163-337) x10^3/uL MPV (9.4-12.4) fL Gran % (34.0-67.9) % Immature Gran % (Auto) (0.001-0.429) % Nucleat RBC Rel Count (0.00-0.2) % Eos # (Auto) (0.04-0.54) x10^3/uL Immature Gran # (Auto) (0.001-0.031) x10^3u/L Absolute Lymphs (auto) (1.32-3.57) x10^3/uL Absolute Monos (auto) (0.30-0.82) x10^3/uL Absolute Nucleated RBC (0.00-0.012) x10^3u/L Lymphocytes % (21.8-53.1) % Monocytes % (5.3-12.2) % Eosinophils % (0.8-7.0) % Basophils % (0.2-1.2) % Absolute Granulocytes (1.78-5.38) x10^3/uL Basophils # (0.01-0.08) x10^3/uL Sodium (135-145) mmol/L Potassium (3.5-5.1) mmol/L Chloride (98-107) mmol/L Carbon Dioxide (22-30) mmol/L Anion Gap (5-15) MEQ/L BUN (9-20) mg/dL Creatinine (0.66-1.25) mg/dL Estimated GFR ML/MIN Glucose (74-106) mg/dL Lactic Acid 1.5 (0.4-2.0) Calcium (8.4-10.2) mg/dL Magnesium (1.6-2.3) mg/dL Total Bilirubin (0.2-1.3) mg/dL AST (17-59) U/L ALT (0-50) U/L Alkaline Phosphatase (38-126) U/L Troponin I (0.000-0.033) ng/mL NT-Pro-B Natriuret Pep (<300) pg/mL Serum Total Protein (6.3-8.2) g/dL Albumin (3.5-5.0) g/dL Prealbumin (17.6-36.0) mg/dL Lipase (23-300) U/L Vitamin B12 (239-931) pg/mL 25-OH Vitamin D Total (30-100) ng/mL TSH 3rd Generation (0.470-4.680) mIU/L Urine Color Yellow (Yellow) Urine Appearance Clear (Clear) Urine pH 5.5 (4.6-8.0) Ur Specific [place] 1.015 (1.005-1.030) Urine Protein Trace A (Negative) Urine Glucose (UA) Negative (Negative) mg/dL Urine Ketones Negative (Negative) Urine Blood Negative (Negative) Urine Nitrite Negative (Negative) Urine Bilirubin Negative (Negative) Urine Urobilinogen 1.0 A (0.2) mg/dL Ur Leukocyte Esterase Moderate A (Negative) U Hyaline Cast (Auto) NONE SEEN (0-2) /LPF Urine Microscopic RBC 0-2 (0-5) /HPF Urine Microscopic WBC 21-50 A (0-5) /HPF Ur Epithelial Cells Rare (None Seen) /HPF Urine Bacteria None Seen (None Seen) /HPF Urine Culture Reflexed YES (NO) Influenza Type A Ag NEGATIVE (NEGATIVE) Influenza Type B Ag NEGATIVE (NEGATIVE) RSV (PCR) NEGATIVE (NEGATIVE) SARS-CoV-2 (PCR) NEGATIVE (NEGATIVE) 04/09/24 04/10/24 04/10/24 Range/Units 20:56 01:30 01:30 WBC 9.0 (4.23-9.07) x10^3/uL RBC 3.06 L (4.63-6.08) x10^6/uL Hgb 8.6 L (13.7-17.5) g/dL Hct 28.6 L (40.1-51.0) % MCV 93.5 H (79.0-92.2) fL MCH 28.1 (25.7-32.2) pg MCHC 30.1 L (32.3-36.5) g/dL RDW 14.0 (11.6-14.4) % Plt Count 367 H (163-337) x10^3/uL MPV 9.0 L (9.4-12.4) fL Gran % (34.0-67.9) % Immature Gran % (Auto) (0.001-0.429) % Nucleat RBC Rel Count (0.00-0.2) % Eos # (Auto) (0.04-0.54) x10^3/uL Immature Gran # (Auto) (0.001-0.031) x10^3u/L Absolute Lymphs (auto) (1.32-3.57) x10^3/uL Absolute Monos (auto) (0.30-0.82) x10^3/uL Absolute Nucleated RBC (0.00-0.012) x10^3u/L Lymphocytes % (21.8-53.1) % Monocytes % (5.3-12.2) % Eosinophils % (0.8-7.0) % Basophils % (0.2-1.2) % Absolute Granulocytes (1.78-5.38) x10^3/uL Basophils # (0.01-0.08) x10^3/uL Sodium (135-145) mmol/L Potassium (3.5-5.1) mmol/L Chloride (98-107) mmol/L Carbon Dioxide (22-30) mmol/L Anion Gap (5-15) MEQ/L BUN (9-20) mg/dL Creatinine (0.66-1.25) mg/dL Estimated GFR ML/MIN Glucose (74-106) mg/dL Lactic Acid (0.4-2.0) Calcium (8.4-10.2) mg/dL Magnesium (1.6-2.3) mg/dL Total Bilirubin (0.2-1.3) mg/dL AST (17-59) U/L ALT (0-50) U/L Alkaline Phosphatase (38-126) U/L Troponin I < 0.012 < 0.012 (0.000-0.033) ng/mL NT-Pro-B Natriuret Pep (<300) pg/mL Serum Total Protein (6.3-8.2) g/dL Albumin (3.5-5.0) g/dL Prealbumin (17.6-36.0) mg/dL Lipase (23-300) U/L Vitamin B12 (239-931) pg/mL 25-OH Vitamin D Total (30-100) ng/mL TSH 3rd Generation (0.470-4.680) mIU/L Urine Color (Yellow) Urine Appearance (Clear) Urine pH (4.6-8.0) Ur Specific [place] (1.005-1.030) Urine Protein (Negative) Urine Glucose (UA) (Negative) mg/dL Urine Ketones (Negative) Urine Blood (Negative) Urine Nitrite (Negative) Urine Bilirubin (Negative) Urine Urobilinogen (0.2) mg/dL Ur Leukocyte Esterase (Negative) U Hyaline Cast (Auto) (0-2) /LPF Urine Microscopic RBC (0-5) /HPF Urine Microscopic WBC (0-5) /HPF Ur Epithelial Cells (None Seen) /HPF Urine Bacteria (None Seen) /HPF Urine Culture Reflexed (NO) Influenza Type A Ag (NEGATIVE) Influenza Type B Ag (NEGATIVE) RSV (PCR) (NEGATIVE) SARS-CoV-2 (PCR) (NEGATIVE) 04/10/24 Range/Units 01:30 WBC (4.23-9.07) x10^3/uL RBC (4.63-6.08) x10^6/uL Hgb (13.7-17.5) g/dL Hct (40.1-51.0) % MCV (79.0-92.2) fL MCH (25.7-32.2) pg MCHC (32.3-36.5) g/dL RDW (11.6-14.4) % Plt Count (163-337) x10^3/uL MPV (9.4-12.4) fL Gran % (34.0-67.9) % Immature Gran % (Auto) (0.001-0.429) % Nucleat RBC Rel Count (0.00-0.2) % Eos # (Auto) (0.04-0.54) x10^3/uL Immature Gran # (Auto) (0.001-0.031) x10^3u/L Absolute Lymphs (auto) (1.32-3.57) x10^3/uL Absolute Monos (auto) (0.30-0.82) x10^3/uL Absolute Nucleated RBC (0.00-0.012) x10^3u/L Lymphocytes % (21.8-53.1) % Monocytes % (5.3-12.2) % Eosinophils % (0.8-7.0) % Basophils % (0.2-1.2) % Absolute Granulocytes (1.78-5.38) x10^3/uL Basophils # (0.01-0.08) x10^3/uL Sodium 138 (135-145) mmol/L Potassium 3.6 (3.5-5.1) mmol/L Chloride 100 (98-107) mmol/L Carbon Dioxide 37 H (22-30) mmol/L Anion Gap 5.2 (5-15) MEQ/L BUN 16 (9-20) mg/dL Creatinine 0.86 (0.66-1.25) mg/dL Estimated GFR 83.8 ML/MIN Glucose 112 H (74-106) mg/dL Lactic Acid (0.4-2.0) Calcium 8.4 (8.4-10.2) mg/dL Magnesium (1.6-2.3) mg/dL Total Bilirubin (0.2-1.3) mg/dL AST (17-59) U/L ALT (0-50) U/L Alkaline Phosphatase (38-126) U/L Troponin I (0.000-0.033) ng/mL NT-Pro-B Natriuret Pep (<300) pg/mL Serum Total Protein (6.3-8.2) g/dL Albumin (3.5-5.0) g/dL Prealbumin 6.78 L (17.6-36.0) mg/dL Lipase (23-300) U/L Vitamin B12 (239-931) pg/mL 25-OH Vitamin D Total (30-100) ng/mL TSH 3rd Generation (0.470-4.680) mIU/L Urine Color (Yellow) Urine Appearance (Clear) Urine pH (4.6-8.0) Ur Specific [place] (1.005-1.030) Urine Protein (Negative) Urine Glucose (UA) (Negative) mg/dL Urine Ketones (Negative) Urine Blood (Negative) Urine Nitrite (Negative) Urine Bilirubin (Negative) Urine Urobilinogen (0.2) mg/dL Ur Leukocyte Esterase (Negative) U Hyaline Cast (Auto) (0-2) /LPF Urine Microscopic RBC (0-5) /HPF Urine Microscopic WBC (0-5) /HPF Ur Epithelial Cells (None Seen) /HPF Urine Bacteria (None Seen) /HPF Urine Culture Reflexed (NO) Influenza Type A Ag (NEGATIVE) Influenza Type B Ag (NEGATIVE) RSV (PCR) (NEGATIVE) SARS-CoV-2 (PCR) (NEGATIVE) Micro Results-Entire Visit: Microbiology 04/09/24 16:15 Urine Culture - Preliminary Catherized NO GROWTH TO DATE - Radiology Exams Ordered Rad Exams-Entire Visit: Radiology Procedures Category Date Time Status CHEST 1 VIEW (PORTABLE) Stat Exams 04/09/24 17:06 Completed ECHO W/2D AND DOPPLER [US] Routine Exams 04/10/24 08:00 Taken - Procedures and Test Procedures and Tests throughout Hospitalization: Therapy Orders & Screens 04/09/24 19:46 EKG REPEAT IN AM Comment: Respiratory Therapy Consult ONCE Comment: Reason For Exam: 04/09/24 21:35 PT Eval & Treat ( Order) ONCE Reason for Eval:: deconditioning Diagnosis: UTI, Weakness OT Eval and Treat (MD Order) ONCE Comment: Physician Instructions: Reason For Exam: Diagnosis: UTI, Weakness 04/09/24 21:58 Oxygen Nasal Cannula 2 lpm Comment: Diagnosis: UTI, Weakness Respiratory Therapy Assessment DAILY Comment: Diagnosis: UTI, Weakness Discharge Exam General Appearance: no apparent distress, alert Neurologic Exam: alert, oriented x 3, cooperative, normal mood/affect, nml cerebellar function, sensation nml, motor weakness, No motor deficits Eye Exam: PERRL, EOMI, eyes nml inspection Ears, Nose, Throat Exam: normal ENT inspection, pharynx normal, moist mucous membranes Neck Exam: normal inspection, non-tender, supple, full range of motion Respiratory Exam: normal breath sounds, lungs clear, No respiratory distress Cardiovascular Exam: regular rate/rhythm, normal heart sounds Gastrointestinal/Abdomen Exam: soft, No tenderness, No mass Male Genitalia Exam: deferred Rectal Exam: deferred Back Exam: normal inspection, normal range of motion, No CVA tenderness, No vertebral tenderness Extremity Exam: normal inspection, normal range of motion Skin Exam: normal color, warm, dry Final Diagnosis/Problem List - Final Discharge Diagnosis/Problem (1) UTI (urinary tract infection) Current Visit: Yes Status: Resolved Assessment & Plan: - Started on Rocephin - UC negative will stop antibiotics - BC x2 pending Code(s): N39.0 - URINARY TRACT INFECTION, SITE NOT SPECIFIED (2) Acute diastolic (congestive) heart failure Current Visit: Yes Status: Acute Assessment & Plan: -Admitted with shortness of breath increased leg swelling lately - NT-proBNP running high, troponin negative - X-ray unremarkable - Given 1 stat dose 40 mg Lasix IV in ER - I will continue 40 mg Lasix IV twice daily- this is pt's home dose - Fluid restriction and low-salt diet to be continued - Echocardiogram back in 2022 showed 65% ejection fraction with mild diastolic dysfunction - Consider repeating echo in the morning - NS @ 35 ml/hr stopped Code(s): I50.31 - ACUTE DIASTOLIC (CONGESTIVE) HEART FAILURE (3) Weakness Current Visit: Yes Status: Acute Assessment & Plan: - PT eval and treat- if ok will d/c home. - Case management to make OP arrangements per PT evaluation Code(s): R53.1 - WEAKNESS (4) Atrial fibrillation Current Visit: No Status: Chronic Assessment & Plan: -Status post ablation in the last -Continue beta-blockers -Continue Eliquis Code(s): I48.91 - UNSPECIFIED ATRIAL FIBRILLATION - Discharge Discharge Date: 04/10/24 Disposition: Home, Self-Care Condition: Fair Prescriptions: Continue Multivitamin [Multi-Vitamin Daily] 1 tab PO DAILY Ferrous Sulfate 325 mg PO BID Olanzapine 5 mg [zyPREXA 5MG TABLET] 5 mg PO HS Dorzolamide HCl/Pf [Dorzolamide 2% Eye Drop] 1 drop OP BID Sertraline HCl 100 mg PO DAILY Apixaban [Eliquis 5 mg Tablet] 2.5 mg PO BID Furosemide 40 mg [Lasix 40 MG] 40 mg PO BID Clonidine HCl 0.1 mg [Clonidine 0.1 mg Tablet] 0.2 mg PO TID Potassium Chloride [Klor-Con 10] 10 meq PO BID Metoprolol Tartrate 50 mg [Lopressor 50 MG] 75 mg PO BID Tamsulosin HCl 0.4 mg [Flomax 0.4 MG] 0.4 mg PO HS Lisinopril 10 mg [Zestril 10 MG] 10 mg PO BID Hydrocodone/Acetaminophen [Hydrocodone-Acetamin 10-325 mg] 1 tab PO Q6H PRN PRN PRN Reason: Pain Magnesium Oxide 400 mg [Mag-Ox 400] 400 mg PO DAILY Albuterol Sulfate [Proair Respiclick] 90 mcg IH UD Timolol Maleate/Pf [Timolol Maleate 0.5% Eye Drop] 1 drop OP BID Naloxone HCl [Narcan] 4 mg IN UD Amlodipine Besylate [Norvasc] 5 mg PO DAILY PANTOPRAZOLE 40 mg Tablet [Protonix 40MG Tablet] 40 mg PO BID Morphine Sulfate [Morphine Sulfate ER] 15 mg PO HS Morphine Sulfate [Morphine Sulfate ER] 30 mg PO BID Ergocalciferol (Vitamin D2) [Vitamin D2] 1 tab PO DAILY Follow up with: MANJIT MALDONADO MD [Primary Care Provider] -
[2024-04-10 15:49] VITALS: BP 146/66; PULSE 71; TEMP 98.4
[2024-04-10] MEDS ORDERED: Ms Contin 15 MG PO SCH (22:00)
[2024-04-16] MEDS ORDERED: VITAMIN D2 PO SCH (10:00)
== END 2024-04-10 17:05 | disposition home or self-care (01) ==
LOC: ED 15:56 → MED SURG 20:00
PROVIDERS: ADMIT Internal Medicine; ATTEND Internal Medicine
DX: N39.0 Urinary tract infection, site not specified (principal); I11.0 Hypertensive heart disease with heart failure; I50.31 Acute diastolic (congestive) heart failure; R53.1 Weakness; I48.91 Unspecified atrial fibrillation; E78.5 Hyperlipidemia, unspecified; F41.9 Anxiety disorder, unspecified; Z79.01 Long term (current) use of anticoagulants; Z79.899 Other long term (current) drug therapy; Z85.51 Personal history of malignant neoplasm of bladder
CPT/HCPCS: 0241U; 36000; 36415; 71045; 80048; 80053; 81001; 82306; 82607; 83605; 83690; 83735; 83880; 84134; 84443; 84484; 85025; 85027; 87040; 87086; 93005; 93306; 94760; 96365; 96374; 97161; 97165; 99285; P9612; G0378; J0696; J1940; Q3014; A9270-GY

== ENCOUNTER 2024-06-23 16:59 | Inpatient (IN) | payer MEDICARE ==
--- NOTE | 2024-06-23 17:06 | ERPHSYRPT ---
- History of Present Illness Time Seen by Provider: 06/23/24 17:05 Source: patient, EMS, old records Exam Limitations: no limitations Physician History: This is an 88-year-old white male patient of Dr. Maldonado who arrives to the emergency department by the city secretary service. Patient was walking around his orthopedic chair when he suddenly slipped. Patient's floor is very slippery especially in socks and that was all that he was wearing when walking around his home. Patient complains of neck pain and left hip pain and he did hit his head. Patient denies losing consciousness but he is on Eliquis. Patient has a history of migraine headaches, atrial fibrillation, CHF, hypertension, gastroesophageal reflux disease, arthritis and prostate issues. Patient arrives to the emergency department with a cervical collar in place. Occurred: just prior to arrival Reason for Fall: slipped Injuries/Pain Location: head, neck, lower extremity (Left hip) Loss of Consciousness: no loss of consciousness Quality: aching Severity of Pain-Max: mild (Moderate) Severity of Pain-Current: mild (To moderate) Modifying Factors: Improves With: movement Associated Symptoms (Fall): extremity injury (Hip pain), neck pain, No abdominal pain, No back pain, No chest pain, No shortness of breath, No slurred speech, No vomiting, No vision changes Allergies/Adverse Reactions: No Known Allergies Allergy (Verified 06/23/24 17:12) Home Medications: Ferrous Sulfate 325 mg PO BID 02/20/22 [History] Multivitamin [Multi-Vitamin Daily] 1 tab PO DAILY 02/20/22 [History] Olanzapine 5 mg [zyPREXA 5MG TABLET] 5 mg PO HS 02/20/22 [History] Dorzolamide HCl/Pf [Dorzolamide 2% Eye Drop] 1 drop OP BID 05/21/22 [History] Apixaban [Eliquis 5 mg Tablet] 2.5 mg PO BID 06/02/22 [History] Clonidine HCl 0.1 mg [Clonidine 0.1 mg Tablet] 0.2 mg PO TID 06/02/22 [History] Furosemide 40 mg [Lasix 40 MG] 40 mg PO BID 06/02/22 [History] Metoprolol Tartrate 50 mg [Lopressor 50 MG] 75 mg PO BID 06/02/22 [History] Potassium Chloride [Klor-Con 10] 10 meq PO BID 06/02/22 [History] Sertraline HCl 100 mg PO DAILY 06/02/22 [History] Tamsulosin HCl 0.4 mg [Flomax 0.4 MG] 0.4 mg PO HS 06/02/22 [History] Hydrocodone/Acetaminophen [Hydrocodone-Acetamin 10-325 mg] 1 tab PO Q6H PRN PRN 10/30/22 [History] Lisinopril 10 mg [Zestril 10 MG] 10 mg PO BID 10/30/22 [History] Albuterol Sulfate [Proair Respiclick] 90 mcg IH UD 12/02/22 [History] Magnesium Oxide 400 mg [Mag-Ox 400] 400 mg PO DAILY 12/02/22 [History] Timolol Maleate/Pf [Timolol Maleate 0.5% Eye Drop] 1 drop OP BID 12/03/22 [ History] Naloxone HCl [Narcan] 4 mg IN UD 05/25/23 [History] Amlodipine Besylate [Norvasc] 5 mg PO DAILY 07/01/23 [History] PANTOPRAZOLE 40 mg Tablet [Protonix 40MG Tablet] 40 mg PO BID 07/01/23 [History] Ergocalciferol (Vitamin D2) [Vitamin D2] 1 tab PO DAILY 04/09/24 [History] Morphine Sulfate [Morphine Sulfate ER] 15 mg PO HS 04/09/24 [History] Morphine Sulfate [Morphine Sulfate ER] 30 mg PO BID 04/09/24 [History] Hx Tetanus, Diphtheria Vaccination/Date Given: No Hx Influenza Vaccination/Date Given: No Hx Pneumococcal Vaccination/Date Given: No Travel Risk - International Travel Have you traveled outside of the country in past 3 weeks: No - Emerging Infectious Disease Are you exhibiting symptoms associated with any current EIDs: Yes Symptoms: Shortness of Breath - Review of Systems Constitutional: No Symptoms Eyes: No Symptoms Ears, Nose, & Throat: No Symptoms Respiratory: No Symptoms Cardiac: No Symptoms Abdominal/Gastrointestinal: No Symptoms Genitourinary Symptoms: No Symptoms Musculoskeletal: Neck Pain, Fall, Joint Pain (Left hip) Skin: No Symptoms Neurological: No Symptoms Psychological: No Symptoms Endocrine: No Symptoms Hematologic/Lymphatic: No Symptoms Immunological/Allergic: No Symptoms All Other Systems: Reviewed and Negative - Past Medical History Pertinent Past Medical History: Yes Neurological History: Migraines ENT History: Cataracts Cardiac History: Arrhythmia, Congestive Heart Failure, Hypertension Respiratory History: CHF Endocrine Medical History: No Pertinent History Musculoskeletal History: Arthritis GI Medical History: Ulcer, Other History: Bladder Cancer Psycho-Social History: Depression Male Reproductive Disorders: No Pertinent History Other Medical History: bladder cancer 2012. home oxygen at bedtime - Past Surgical History Past Surgical History: Yes Neuro Surgical History: No Pertinent History Cardiac: No Pertinent History Respiratory: No Pertinent History Gastrointestinal: Other Genitourinary: Other Musculoskeletal: Orthopedic Surgery Male Surgical History: No Pertinent History Other Surgical History: Bilateral hip replacement, Bilateral shoulder replacement, bladder biopsy Significant Family History: no pertinent family hx - Social History Smoking Status: Never smoker Exposure to second hand smoke: No Drug Use: none Patient Lives Alone: No - Social Determinants of Health Will the patient participate in the screening: Yes Do you worry about a steady place to live?: No In the past 12 months,have you had to go without utilities?: No Transportation Issues: No Has anyone in your support network made you feel unsafe?: No Have you or anyone in your house had to go without enough: No - Nursing Vital Signs Nursing Vital Signs: Initial Vital Signs Temperature 97.2 F 06/23/24 17:00 Pulse Rate 60 06/23/24 17:00 Respiratory Rate 18 06/23/24 17:00 Blood Pressure 190/87 06/23/24 17:00 O2 Sat by Pulse Oximetry 89 L 06/23/24 17:00 Pain Scale Pain Intensity 0 - [place] Coma Score Best Eye Response (My): (4) open spontaneously Best Verbal Response ([place]): (5) oriented Best Motor Response (My): (6) obeys commands [place] Total: 15 - Physical Exam General Appearance: no apparent distress, alert, anxiety Head Injury: no evidence of injury Eye Exam: PERRL/EOMI ENT Exam: airway nml, nml ext.inspection Neck Exam: trachea midline, normal alignment, c-collar in place Respiratory/Chest Exam: normal breath sounds, No chest tenderness, No respiratory distress, No ecchymosis, No crepitus Cardiovascular Exam: normal heart sounds, regular rate/rhythm Gastrointestinal Exam: soft, normal bowel sounds, No tenderness Rectal Exam: not done Back Exam: normal inspection, normal range of motion, No CVA tenderness, No vertebral tenderness Extremity Exam: normal inspection, normal range of motion, pelvis stable, hip tenderness (Left hip), tenderness (Left hip), No deformities Neurologic Exam: alert, oriented x 3, cooperative, company driver II-XII nml as tested, normal mood/affect, sensation nml Skin Exam: normal color, warm, dry SpO2 Interpretation: normal O2 Delivery: Room Air - Course Nursing assessment & vital signs reviewed: Yes Ordered Tests: Active Orders 24 hr Category Date Time Status CERVICAL SPINE WO CONTRAST [CT] Stat Exams 06/23/24 17:07 Taken HEAD WITHOUT CONTRAST [CT] Stat Exams 06/23/24 17:07 Taken HIP UNI (2V) INCL PEL IF DONE Stat Exams 06/23/24 17:08 Taken - Progress Progress: improved, pain not gone completely Progress Note: 06/23/24 17:43 My medical decision making of the assignment of moderate complexity to this patient's medical issue today is based on review of the patient's past medical history, review of the patient's medication list, reviewed patient drug allergy list, history present illness and physical findings on examination. The workup today includes CT scan of the head and cervical spine without contrast and x-ray of the left hip and pelvis. Differential diagnosis includes but is not limited to acute intracranial abnormality, cervical spine subluxation and/or fracture, left hip dislocation and/or fracture 06/23/24 18:59 I interpreted of the preliminary report of the patient's left hip and pelvis x- ray. My interpretation I see degenerative changes but no acute fracture or dislocation. CT scan of the cervical spine without contrast was interpreted by the radiologist and I reviewed the impression. The impression states multilevel degenerative disc disease compared to similar study dated 03/21/2022. There is no new, acute findings. CT scan of the head without contrast was interpreted by the radiologist and I reviewed the impression. The impression states stable, nonacute senile brain compared to similar study dated 12/02/2022. There is chronic right maxillary sinus disease. Counseled pt/family regarding: diagnosis, need for follow-up, rad results Medical Desision Making - Independent Historian Additional History obtained from: Camouflage Specialist/EMT - Diagnostic Testing Diagnostic test were ordered, analyzed, and reviewed by me: Yes Radiological Interpretation: Interpreted by me, Reviewed by me, Teleradiologist Report - Risk of complications The pt has a mod risk of morbidity or mortality based on: Need for prescription drug management - Departure Departure Disposition: Home Clinical Impression: Fall with no significant injury, Maxillary sinusitis Condition: Stable Critical Care Time: No Referrals: MANJIT MALDONADO MD [Primary Care Provider] - Follow up/PCP as directed Additional Instructions: If there are no contraindications, use Tylenol for pain control. Ice pack to tender areas 3-4 times a day for the next 2 to 3 days. Call your primary care provider on 06/26/2024 to make arranges for follow-up appointment for further evaluation management. Prescriptions: Amoxicillin 500 mg Cap [Amoxil 500 mg] 500 mg PO TID #21 cap
[2024-06-23] MEDS ORDERED: AMOXIL 500 MG ONE (19:29)
[2024-06-23] MEDS: AMOXIL 500 MG PO ONE (19:31)
[2024-06-23 21:13] LABS: Absolute Neutrophil Ct (ANC) 10.83 x10^3/uL (1.78-5.38); BASOPHIL % 0.1 % (0.2-1.2); Basophil (Absolute #) 0.01 x10^3/uL (0.01-0.08); Eosinophil % 2.3 % (0.8-7.0); Eosinophil (Absolute #) 0.31 x10^3/uL (0.04-0.54); Hematocrit 38.9 % (40.1-51.0); Hemoglobin 12.1 g/dL (13.7-17.5); IMMATURE GRAN # 0.08 x10^3u/L (0.001-0.031); IMMATURE GRAN % 0.6 % (0.001-0.429); Lymphocyte (Absolute #) 1.41 x10^3/uL (1.32-3.57); Lymphocytes % 10.4 % (21.8-53.1); Mean Cell Volume 90.3 fL (79.0-92.2); Mean Corpuscular Hemoglobin 28.1 pg (25.7-32.2); Mean Corpuscular Hgb Concent. 31.1 g/dL (32.3-36.5); Mean Platelet Volume 8.9 fL (9.4-12.4); Monocyte (Absolute #) 0.94 x10^3/uL (0.30-0.82); Monocytes % 6.9 % (5.3-12.2); Neutrophil % 79.7 % (34.0-67.9); Platelet Count 241 x10^3/uL (163-337); Red Blood Count 4.31 x10^6/uL (4.63-6.08); Red Cell Distribution Width 16.5 % (11.6-14.4); White Blood Count 13.6 x10^3/uL (4.23-9.07)
[2024-06-23 21:27] LABS: ANION GAP 8.9 MEQ/L (5-15); Calcium 8.7 mg/dL (8.4-10.2); Creatinine 1 0.81 mg/dL (0.66-1.25); EST GLOMERULAR FILTRATION RATE 85.3 ML/MIN; Potassium 3.5 mmol/L (3.5-5.1)
[2024-06-23] MEDS ORDERED: Zofran 4 MG/2 ML VIAL IV PRN (21:28)
[2024-06-23] MEDS ORDERED: Zofran 4 MG/2 ML VIAL ONE (22:08)
[2024-06-23] MEDS: Zofran 4 MG/2 ML VIAL IV ONE (22:10)
[2024-06-23] MEDS: MORPHINE SULFATE 2 MG INJ IV ONE (22:10)
--- NOTE | 2024-06-24 00:25 | PCM.HP ---
History of Present Illness - Chief Complaint Chief Complaint: Left hip intractable pain Date: 06/23/24 History of Present Illness: is a 88 year old male with history of hypertension, A-fib, COPD on 2 L nocturnal oxygen, CHF, chronic pain, and bladder cancer, here after ground- level fall. Patient was getting up from his orthopedic chair or wearing socks when he slipped and fell to the ground, "bouncing on my head multiple times". He denies any loss of consciousness, but does report headache, neck pain, and left hip pain. Denies nausea, focal weakness or numbness. Initially was evaluated in the ED and had no fractures, but upon attempting to discharge to home, he had difficulty with ambulation due to severe pain in his leg. At baseline, he walks with a rolling walker as needed, but currently is unable to put any weight onto his left leg. - Review of Systems All Other Systems: Reviewed and Negative Medications & Allergies Home Medications: Home Medication List Ferrous Sulfate 325 mg PO BID 02/20/22 [History Confirmed 06/23/24] Multivitamin [Multi-Vitamin Daily] 1 tab PO DAILY 02/20/22 [History Confirmed 06/23/24] Olanzapine 5 mg [zyPREXA 5MG TABLET] 5 mg PO HS 02/20/22 [History Confirmed 06/23/24] Dorzolamide HCl/Pf [Dorzolamide 2% Eye Drop] 1 drop OP BID 05/21/22 [History Confirmed 06/23/24] Apixaban [Eliquis 5 mg Tablet] 2.5 mg PO BID 06/02/22 [History Confirmed 06/23/24] Clonidine HCl 0.1 mg [Clonidine 0.1 mg Tablet] 0.2 mg PO TID 06/02/22 [History Confirmed 06/23/24] Furosemide 40 mg [Lasix 40 MG] 40 mg PO BID 06/02/22 [History Confirmed 06/23/24] Metoprolol Tartrate 50 mg [Lopressor 50 MG] 75 mg PO BID 06/02/22 [History Confirmed 06/23/24] Potassium Chloride [Klor-Con 10] 10 meq PO BID 06/02/22 [History Confirmed 06/23/24] Sertraline HCl 100 mg PO DAILY 06/02/22 [History Confirmed 06/23/24] Tamsulosin HCl 0.4 mg [Flomax 0.4 MG] 0.4 mg PO HS 06/02/22 [History Confirmed 06/23/24] Hydrocodone/Acetaminophen [Hydrocodone-Acetamin 10-325 mg] 1 tab PO Q6H PRN PRN 10/30/22 [History Confirmed 06/23/24] Lisinopril 10 mg [Zestril 10 MG] 10 mg PO BID 10/30/22 [History Confirmed 06/23/24] Albuterol Sulfate [Proair Respiclick] 90 mcg IH UD 12/02/22 [History Confirmed 06/23/24] Magnesium Oxide 400 mg [Mag-Ox 400] 400 mg PO DAILY 12/02/22 [History Confirmed 06/23/24] Timolol Maleate/Pf [Timolol Maleate 0.5% Eye Drop] 1 drop OP BID 12/03/22 [History Confirmed 06/23/24] Naloxone HCl [Narcan] 4 mg IN UD 05/25/23 [History Confirmed 06/23/24] Amlodipine Besylate [Norvasc] 5 mg PO DAILY 07/01/23 [History Confirmed 06/23/24] PANTOPRAZOLE 40 mg Tablet [Protonix 40MG Tablet] 40 mg PO BID 07/01/23 [History Confirmed 06/23/24] Ergocalciferol (Vitamin D2) [Vitamin D2] 1 tab PO DAILY 04/09/24 [History Con firmed 06/23/24] Morphine Sulfate [Morphine Sulfate ER] 15 mg PO HS 04/09/24 [History Confirmed 06/23/24] Morphine Sulfate [Morphine Sulfate ER] 30 mg PO BID 04/09/24 [History Confirmed 06/23/24] Amoxicillin 500 mg Cap [Amoxil 500 mg] 500 mg PO TID #21 cap 06/23/24 [Rx] Allergies/Adverse Reactions: Allergies Allergy/AdvReac Type Severity Reaction Status Date / Time No Known Allergies Allergy Verified 06/23/24 17:12 - Past Medical History Past Medical History: Yes Neurological History: Migraines ENT History: Cataracts, Glaucoma Cardiac History: Hypertension Respiratory History: COPD Endocrine Medical History: No Pertinent History Musculoskelatal History: Arthritis, Osteoarthritis GI Medical History: GERD History: Bladder Cancer Pyscho-Social History: Depression Male Reproductive Disorders: No Pertinent History Comment: bladder cancer 2012. home oxygen at bedtime - Past Surgical History Past Surgical History: Yes Neuro Surgical History: No Pertinent History Cardiac History: No Pertinent History Respiratory Surgery: No Pertinent History GI Surgical History: No Pertinent History Genitourinary Surgical Hx: No Pertinent History Musculskeletal Surgical Hx: Joint Replacement, Orthopedic Surgery Male Surgical History: No Pertinent History Other Surgical History: Bilateral hip replacement, Bilateral shoulder replacement, bladder biopsy Significant Family History: no pertinent family hx - Social History Smoking Status: Never smoker Exposure to second hand smoke: No Alcohol: None Drug Use: none - Social Determinants of Health Will the patient participate in the screening: Yes Do you worry about a steady place to live?: No In the past 12 months,have you had to go without utilities?: No Have you or anyone in your house had to go without enough: No Transportation Issues: No Has anyone in your support network made you feel unsafe?: No Does the patient want assistance with any of the above?: No - Physical Exam Vital Signs: Vital Signs - 24 hr Temp Pulse Resp BP BP Pulse Ox 06/24/24 00:00 97.2 F 77 190/87 93 L 06/23/24 22:30 93 L 06/23/24 21:10 77 18 144/81 95 06/23/24 20:00 58 L 16 155/83 93 L 06/23/24 19:30 62 18 164/110 94 L 06/23/24 19:00 57 L 162/89 93 L 06/23/24 18:38 64 18 166/89 97 06/23/24 18:00 179/77 97 06/23/24 17:59 97 06/23/24 17:58 94 L 06/23/24 17:02 190/87 98 06/23/24 17:00 97.2 F 60 18 190/87 89 L General Appearance: no apparent distress Neurologic Exam: alert, oriented x 3, normal mood/affect, No motor deficits, No sensory deficit Eye Exam: PERRL/EOMI, eyes nml inspection Ears, Nose, Throat Exam: moist mucous membranes Neck Exam: supple, full range of motion Respiratory Exam: normal breath sounds, lungs clear, other (On 2 L oxygen by nasal cannula), No respiratory distress Cardiovascular Exam: other (Irregularly irregular rhythm, no murmurs, no edema) Gastrointestinal/Abdomen Exam: No tenderness, No distention Back Exam: normal range of motion Extremity Exam: tenderness (Over left hip), No deformities, No lacerations, No joint swelling Skin Exam: normal color, No rash Results - Labs Lab/Micro Results: Lab Results-Last 24 Hours 06/23/24 06/23/24 Range/Units 21:05 21:05 WBC 13.6 H (4.23-9.07) x10^3/uL RBC 4.31 L (4.63-6.08) x10^6/uL Hgb 12.1 L (13.7-17.5) g/dL Hct 38.9 L (40.1-51.0) % MCV 90.3 (79.0-92.2) fL MCH 28.1 (25.7-32.2) pg MCHC 31.1 L (32.3-36.5) g/dL RDW 16.5 H (11.6-14.4) % Plt Count 241 (163-337) x10^3/uL MPV 8.9 L (9.4-12.4) fL Gran % 79.7 H (34.0-67.9) % Immature Gran % (Auto) 0.6 H (0.001-0.429) % Nucleat RBC Rel Count 0.0 (0.00-0.2) % Eos # (Auto) 0.31 (0.04-0.54) x10^3/uL Immature Gran # (Auto) 0.08 H (0.001-0.031) x10^3u/L Absolute Lymphs (auto) 1.41 (1.32-3.57) x10^3/uL Absolute Monos (auto) 0.94 H (0.30-0.82) x10^3/uL Absolute Nucleated RBC 0.00 (0.00-0.012) x10^3u/L Lymphocytes % 10.4 L (21.8-53.1) % Monocytes % 6.9 (5.3-12.2) % Eosinophils % 2.3 (0.8-7.0) % Basophils % 0.1 L (0.2-1.2) % Absolute Granulocytes 10.83 H (1.78-5.38) x10^3/uL Basophils # 0.01 (0.01-0.08) x10^3/uL Sodium 141 (135-145) mmol/L Potassium 3.5 (3.5-5.1) mmol/L Chloride 100 (98-107) mmol/L Carbon Dioxide 35 H (22-30) mmol/L Anion Gap 8.9 (5-15) MEQ/L BUN 16 (9-20) mg/dL Creatinine 0.81 (0.66-1.25) mg/dL Estimated GFR 85.3 ML/MIN Glucose 126 H (74-106) mg/dL Calcium 8.7 (8.4-10.2) mg/dL - Radiology Impressions Radiology Exams & Impressions: Radiology Procedures Category Date Time Status CERVICAL SPINE WO CONTRAST [CT] Stat Exams 06/23/24 17:07 Taken HEAD WITHOUT CONTRAST [CT] Stat Exams 06/23/24 17:07 Taken HIP UNI (2V) INCL PEL IF DONE Stat Exams 06/23/24 17:08 Taken Note, radiology results not available in EMR currently, but per ED physician: CT C-spine and head showed multilevel degenerative disc disease and stable nonacute canal brain, but with no new acute findings. Left hip x-ray did not show fracture. - Other Procedures and Tests Respiratory Therapy 06/23/24 22:33 Oxygen NASAL CANNULA 2 lpm Assessment/Plan (1) Fall with no significant injury Current Visit: Yes Status: Acute Assessment & Plan: 88-year-old man with history of hypertension, A-fib, COPD, chronic pain syndrome, and bladder cancer, here with persistent pain after fall onto left hip. ## Left hip pain persistent, unable to ambulate currently. No fracture per report of left hip x-ray. However, family was uncomfortable bringing patient home because of inability for modified independent ambulation. Of note, patient is on chronic morphine p.o. for pain, indicating he is likely somewhat opioid tolerant. Place in observation PT evaluation Patient is rolling walker from home Continue his morphine ER 30 mg in the morning and 45 mg in the evening, with PRN [place] 10 ## Hypertension blood pressure initially elevated, in the setting of pain. Restart home clonidine 0.2 mg TID, amlodipine 5 mg daily, lisinopril 10 mg BID, Lopressor 75 mg BID ## Paroxysmal atrial fibrillation currently rate controlled. Continue Eliquis 2.5 mg BID (note, this is his home dose, but he does not meet criteria for dose adjustment for A-fib.) Continue Lopressor 75 mg BID ## COPD, chronic hypoxic respiratory failure patient is currently on 2 L oxygen, and he uses 2 L oxygen at home at night. Continue nocturnal oxygen PRN albuterol ## Chronic diastolic heart failure currently euvolemic. Continue home Lasix 40 mg BID, with potassium 10 mEq BID Repeat BMP CODE STATUS: Full code Prophylaxis: Eliquis Diet: Regular Dispo: Place in observation, but given patient's current functional limitations, he may need placement in more extended rehab before he will be able to go home. Will follow-up after PT evaluation. Code(s): W19.XXXA - UNSPECIFIED FALL, INITIAL ENCOUNTER Telemedicine Encounter - Telemedicine Encounter Telemedicine Encounter: "The entirety of this encounter was performed via Telemedicine" This visit was performed using real-time audio and video connection between my location and thepatients locationwith the assistance of a surrogateat the patients location. Written or verbal consent was obtained from the patient /guardian to perform this visit us[facility] technology. Any patient questions regarding the telemedicine interaction were answered.
[2024-06-24] MEDS: Lasix 40 MG PO SCH (01:13)
[2024-06-24] MEDS: NON-FORMULARY ITEM (Morphine Sulfate [Morphine Sulfate Er] 30 MG Tablet.Er) PO SCH (01:18)
[2024-06-24] MEDS ORDERED: ELIQUIS 2.5 MG TABLET ONE (01:22)
[2024-06-24] MEDS: Lopressor 50 MG PO SCH (01:24)
[2024-06-24] MEDS: Klor Con PO SCH (01:25)
[2024-06-24] MEDS: zyPREXA 5MG TABLET PO SCH (01:26)
[2024-06-24] MEDS: NON-FORMULARY ITEM (Apixaban*** [Eliquis 5 Mg Tablet***] 5 MG Tablet) PO SCH (01:26)
[2024-06-24] MEDS: Ms Contin 15 MG PO SCH ×3 (01:26→21:14)
[2024-06-24] MEDS: Zestril 10 MG PO SCH (01:27)
[2024-06-24] MEDS: Flomax 0.4 MG PO SCH (01:27)
[2024-06-24] MEDS: Protonix 40MG Tablet PO SCH (01:27)
[2024-06-24 05:54] LABS: Hemoglobin 10.8 g/dL (13.7-17.5); Mean Cell Volume 90.7 fL (79.0-92.2); Mean Corpuscular Hgb Concent. 30.9 g/dL (32.3-36.5); Platelet Count 202 x10^3/uL (163-337); Red Blood Count 3.86 x10^6/uL (4.63-6.08); Red Cell Distribution Width 16.8 % (11.6-14.4); White Blood Count 8.7 x10^3/uL (4.23-9.07)
[2024-06-24 06:19] LABS: ANION GAP 5.2 MEQ/L (5-15); Calcium 8.2 mg/dL (8.4-10.2); Creatinine 1 0.85 mg/dL (0.66-1.25); EST GLOMERULAR FILTRATION RATE 84.1 ML/MIN; Potassium 3.7 mmol/L (3.5-5.1)
--- NOTE | 2024-06-24 08:01 | XRAY ---
Indication: Headache and neck injury following fall. Multiple contiguous axial images obtained through the head without contrast. Comparison: December 02, 2022. Again age-appropriate global atrophy and mild periventricular degenerative micro-ischemia. No acute intracranial hemorrhage, abnormal extra-axial fluid collection, or mass effect. Fourth ventricle is midline without hydrocephalus. Bony calvarium intact. Again chronic mucoperiosteal thickening right maxillary sinus. Remaining visualized paranasal sinuses and mastoid air cells are clear. Impression: Continued nonacute senile brain. Again chronic right maxillary sinus disease.
--- NOTE | 2024-06-24 08:06 | XRAY ---
Indication: Headache and neck injury following fall. Multiple contiguous axial images obtained through the cervical spine. Sagittal and coronal reformatted images obtained. Comparison: March 21, 2022. Again age-appropriate osteopenia. Axial images negative for acute fracture, suspicious bony lesions, or spinal canal stenosis. There remains mild/moderate C4-T2 degenerative endplate spurring, moderate multilevel bilateral degenerative facet hypertrophy, and moderate atlantoaxial degenerative changes. Sagittal and coronal reformatted images again demonstrates normal alignment with multilevel disc space narrowing greatest at C5-T2 levels. No acute compression fracture, subluxation, or jumped facet. Normal appearing craniocervical junction. Visualized noncontrasted soft tissues again demonstrates mild bilateral carotid calcifications. Lung apices clear. Impression: 1. Continued negative for acute fracture/subluxation. 2. Again chronic findings including osteopenia, multilevel degenerative spondylosis, and carotid calcifications.
--- NOTE | 2024-06-24 08:08 | XRAY ---
Indication: Left hip pain following fall. Comparison: Right hip exam March 04, 2022. AP pelvis and 2 view left hip again demonstrates osteopenia, intact bilateral total hip arthroplasty, and mild scattered vascular calcifications. Incidental mild diffuse colonic fecal debris. No other bony, articular, or soft tissue abnormalities.
[2024-06-24] MEDS: MAG-OX 400 PO SCH (09:10)
[2024-06-24] MEDS: ELIQUIS 2.5 MG TABLET PO SCH (09:10)
[2024-06-24] MEDS: CLONIDINE 0.1 MG TABLET PO SCH (09:11)
[2024-06-24] MEDS: THERAGRAN MULTIVITAMIN PO SCH (09:11)
[2024-06-24] MEDS: NORVASC 5 MG PO SCH (09:11)
[2024-06-24] MEDS: ZOLOFT 50 MG TABLET PO SCH (09:12)
[2024-06-24] MEDS: FEOSOL 325 MG PO SCH (09:12)
[2024-06-24] MEDS: Docusate Sodium 100 MG PO SCH (09:12)
[2024-06-24] MEDS: VITAMIN D PO SCH (09:12)
[2024-06-24] MEDS ORDERED: MEDICATION INTERVENTION MC SCH ×2 (09:30)
[2024-06-24] MEDS ORDERED: Narcan 0.4 MG/ML IV PRN (09:52)
[2024-06-24] MEDS ORDERED: [UNRECOGNIZED DRUG - OTHER] OP SCH (10:00)
[2024-06-24] MEDS ORDERED: NON-FORMULARY ITEM (Dorzolamide Hcl/Pf [Dorzolamide 2% Eye Drop] 10 ML Drops) OP SCH (10:00)
[2024-06-24] MEDS ORDERED: NON-FORMULARY ITEM (Multivitamin [Multi-Vitamin Daily] 1 EACH Tablet) PO SCH (10:00)
[2024-06-24] MEDS ORDERED: VITAMIN D2 PO SCH (10:00)
[2024-06-24] MEDS ORDERED: NON-FORMULARY ITEM (Sertraline Hcl [Sertraline Hcl] 100 MG Tablet) PO SCH (10:00)
--- NOTE | 2024-06-24 11:30 | PCM.NOTE ---
Date and Time: 06/24/24 1125 Subjective Assessment: is a 88 year old male with history of hypertension, A-fib, COPD on 2 L nocturnal oxygen, CHF, chronic pain, and bladder cancer. He was admitted 06/23/24 after after ground-level fall. Patient was getting up from his orthopedic chair or wearing socks when he slipped and fell to the ground, "bounc ing on my head multiple times". He denies any loss of consciousness, but does report headache, neck pain, and left hip pain. Head pain is worse with touching and brushing hair. Denies nausea, focal weakness or numbness. Initially was evaluated in the ED and had no fractures, but upon attempting to discharge to home, he had difficulty with ambulation due to severe pain in his leg. At baseline, he walks with a rolling walker as needed, but currently is unable to put any weight onto his left leg. He takes chronic narcotic pain medictaion for pain but states he is normally able to walk. He is unable to place any weight on his left leg. Pain increased with turning or rotation of leg. He states pain is increased from left hip to knee with pain in upper leg and hip. He has no pain when not moving. Femur XR, CT femur and Abd/ plevis pending. Will consider ortho consult. He has no shortening or rotation of LLE. He lives at home with family. He denies CP, SOB, abd pain, N/V/D. - Review of Systems Constitutional: Weakness, No Fever, No Chills Eyes: No Symptoms Ears, Nose, & Throat: No Symptoms Respiratory: No Cough, No Short Of Breath Cardiac: No Chest Pain, No Edema, No Syncope Abdominal/Gastrointestinal: No Abdominal Pain, No Nausea, No Vomiting, No Diarrhea Genitourinary Symptoms: No Dysuria Musculoskeletal: Fall, Joint Pain (left hip), Other (left femur pain), No Back Pain, No Neck Pain Skin: No Rash Neurological: No Dizziness, No Focal Weakness, No Sensory Changes Psychological: No Symptoms Endocrine: No Symptoms Hematologic/Lymphatic: No Symptoms Immunological/Allergic: No Symptoms Objective Exam General Appearance: no apparent distress, alert Neurologic Exam: alert, oriented x 3, cooperative, normal mood/affect, nml cerebellar function, sensation nml, No motor deficits Skin Exam: normal color, warm, dry Wound Assessment: Skin/Wound Assessment Wound/Incision Assessment Start: 06/24/24 01:00 Text: Status: Active Freq: Q6H Protocol: Document 06/24/24 01:00 TS (Rec: 06/24/24 01:07 TS [id number]) Wound/Incision Assessment Medial Sacrum Wound Assessment Admission Wound Type Pressure Ulcer Wound Stage Stage II Drainage Amount None General Appearance Open to air,Reddened Eye Exam: PERRL, EOMI, eyes nml inspection Ears, Nose, Throat Exam: normal ENT inspection, pharynx normal, moist mucous membranes Neck Exam: normal inspection, non-tender, supple, full range of motion Respiratory Exam: normal breath sounds, lungs clear, No respiratory distress Cardiovascular Exam: regular rate/rhythm, normal heart sounds Gastrointestinal/Abdomen Exam: soft, No tenderness, No mass Extremity Exam: normal inspection, normal range of motion, tenderness (Left femur and left hip pain with any movement and unable to stand on left leg) Back Exam: normal inspection, normal range of motion, No CVA tenderness, No vertebral tenderness Male Genitalia Exam: deferred Rectal Exam: deferred Objective Data Vital Signs: Vital Signs - 24 hr Temp Pulse Resp BP BP Pulse Ox 06/24/24 07:35 97.1 F 62 20 182/84 95 06/24/24 06:51 95 06/24/24 03:44 98.2 F 70 19 138/65 93 L 06/24/24 00:48 97.2 F 77 190/87 93 L 06/24/24 00:00 97.2 F 77 190/87 93 L 06/23/24 22:30 93 L 06/23/24 21:10 77 18 144/81 95 06/23/24 20:00 58 L 16 155/83 93 L 06/23/24 19:30 62 18 164/110 94 L 06/23/24 19:00 57 L 162/89 93 L 06/23/24 18:38 64 18 166/89 97 06/23/24 18:00 179/77 97 06/23/24 17:59 97 06/23/24 17:58 94 L 06/23/24 17:02 190/87 98 06/23/24 17:00 97.2 F 60 18 190/87 89 L Pain Assessment - Last Documented Pain Intensity 0 Intake and Output: Intake & Output 1106/22/24 06/23/24 06/24/24 11:59 11:59 11:59 11:59 Intake Total 450 Balance 450 Weight 82.6 kg Lab Results: Lab Results-Last 24 Hours 06/23/24 06/23/24 06/24/24 Range/Units 21:05 21:05 05:46 WBC 13.6 H 8.7 (4.23-9.07) x10^3/uL RBC 4.31 L 3.86 L (4.63-6.08) x10^6/uL Hgb 12.1 L 10.8 L (13.7-17.5) g/dL Hct 38.9 L 35.0 L (40.1-51.0) % MCV 90.3 90.7 (79.0-92.2) fL MCH 28.1 28.0 (25.7-32.2) pg MCHC 31.1 L 30.9 L (32.3-36.5) g/dL RDW 16.5 H 16.8 H (11.6-14.4) % Plt Count 241 202 (163-337) x10^3/uL MPV 8.9 L 9.0 L (9.4-12.4) fL Gran % 79.7 H (34.0-67.9) % Immature Gran % (Auto) 0.6 H (0.001-0.429) % Nucleat RBC Rel Count 0.0 (0.00-0.2) % Eos # (Auto) 0.31 (0.04-0.54) x10^3/uL Immature Gran # (Auto) 0.08 H (0.001-0.031) x10^3u/L Absolute Lymphs (auto) 1.41 (1.32-3.57) x10^3/uL Absolute Monos (auto) 0.94 H (0.30-0.82) x10^3/uL Absolute Nucleated RBC 0.00 (0.00-0.012) x10^3u/L Lymphocytes % 10.4 L (21.8-53.1) % Monocytes % 6.9 (5.3-12.2) % Eosinophils % 2.3 (0.8-7.0) % Basophils % 0.1 L (0.2-1.2) % Absolute Granulocytes 10.83 H (1.78-5.38) x10^3/uL Basophils # 0.01 (0.01-0.08) x10^3/uL Sodium 141 (135-145) mmol/L Potassium 3.5 (3.5-5.1) mmol/L Chloride 100 (98-107) mmol/L Carbon Dioxide 35 H (22-30) mmol/L Anion Gap 8.9 (5-15) MEQ/L BUN 16 (9-20) mg/dL Creatinine 0.81 (0.66-1.25) mg/dL Estimated GFR 85.3 ML/MIN Glucose 126 H (74-106) mg/dL Calcium 8.7 (8.4-10.2) mg/dL 06/24/24 Range/Units 05:46 WBC (4.23-9.07) x10^3/uL RBC (4.63-6.08) x10^6/uL Hgb (13.7-17.5) g/dL Hct (40.1-51.0) % MCV (79.0-92.2) fL MCH (25.7-32.2) pg MCHC (32.3-36.5) g/dL RDW (11.6-14.4) % Plt Count (163-337) x10^3/uL MPV (9.4-12.4) fL Gran % (34.0-67.9) % Immature Gran % (Auto) (0.001-0.429) % Nucleat RBC Rel Count (0.00-0.2) % Eos # (Auto) (0.04-0.54) x10^3/uL Immature Gran # (Auto) (0.001-0.031) x10^3u/L Absolute Lymphs (auto) (1.32-3.57) x10^3/uL Absolute Monos (auto) (0.30-0.82) x10^3/uL Absolute Nucleated RBC (0.00-0.012) x10^3u/L Lymphocytes % (21.8-53.1) % Monocytes % (5.3-12.2) % Eosinophils % (0.8-7.0) % Basophils % (0.2-1.2) % Absolute Granulocytes (1.78-5.38) x10^3/uL Basophils # (0.01-0.08) x10^3/uL Sodium 139 (135-145) mmol/L Potassium 3.7 (3.5-5.1) mmol/L Chloride 100 (98-107) mmol/L Carbon Dioxide 37 H (22-30) mmol/L Anion Gap 5.2 (5-15) MEQ/L BUN 16 (9-20) mg/dL Creatinine 0.85 (0.66-1.25) mg/dL Estimated GFR 84.1 ML/MIN Glucose 108 H (74-106) mg/dL Calcium 8.2 L (8.4-10.2) mg/dL Radiology Exams: Radiology Procedures Category Date Time Status CERVICAL SPINE WO CONTRAST [CT] Stat Exams 06/23/24 17:07 Completed CTA LOWER EXTREMITY W CONTRAST [CT] Stat Exams 06/24/24 09:50 Ordered HEAD WITHOUT CONTRAST [CT] Stat Exams 06/23/24 17:07 Completed HIP UNI (2V) INCL PEL IF DONE Stat Exams 06/23/24 17:08 Completed Assessment/Plan (1) Ground-level fall Current Visit: Yes Status: Acute Assessment & Plan: - Normally walks with walker at home- unable to put weight on left leg, increased pain of Left hip and leg with any movement. - Narcotic pain meds - Radiology results reviewed - PT eval and treat Code(s): W18.30XA - FALL ON SAME LEVEL, UNSPECIFIED, INITIAL ENCOUNTER (2) Left hip pain Current Visit: Yes Status: Acute Assessment & Plan: - Left hip XR reviewed- shows no fx - CT pending Code(s): M25.552 - PAIN IN LEFT HIP (3) Pain of left femur Current Visit: Yes Status: Acute Assessment & Plan: - XR pending - CT- pending Code(s): M89.8X5 - OTHER SPECIFIED DISORDERS OF BONE, THIGH (4) BPH (benign prostatic hyperplasia) Current Visit: Yes Status: Chronic Assessment & Plan: - Continue Flomax - CMP reviewed Code(s): N40.0 - BENIGN PROSTATIC HYPERPLASIA WITHOUT LOWER URINRY TRACT SYMP (5) Maxillary sinusitis Current Visit: Yes Status: Acute Assessment & Plan: - as seen on CT head - Amoxicillin gave in the ER - Pt denies any sinus complaints - CBC reviewed Code(s): 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 (6) GERD (gastroesophageal reflux disease) Current Visit: Yes Status: Chronic Assessment & Plan: - Continue protonix Code(s): K21.9 - GASTRO-ESOPHAGEAL REFLUX DISEASE WITHOUT ESOPHAGITIS (7) Depression Current Visit: Yes Status: Chronic Assessment & Plan: - Continue home meds Code(s): F32.A - DEPRESSION, UNSPECIFIED (8) Dementia Current Visit: No Status: Chronic Assessment & Plan: - Continue home meds Code(s): F03.90 - UNSP DEMENTIA, UNSP SEVERITY, WITHOUT BEH/PSYCH/MOOD/ANX (9) Chronic pain Current Visit: Yes Status: Chronic Assessment & Plan: - For OA- takes MS contin OP- continue - Narcan PRN resp depression Code(s): G89.29 - OTHER CHRONIC PAIN (10) HTN (hypertension) Current Visit: Yes Status: Chronic Assessment & Plan: - acute on chronic - BP increased 2:2 pain - Monitor BP - Continue home meds - Hydralizine PRN VTE: Eliquis PPI: Protonix Next of KIN: Spouse D/C plan: 1-2 days Code status: Full Code(s): I10 - ESSENTIAL (PRIMARY) HYPERTENSION
[2024-06-24] MEDS ORDERED: APRESOLINE 20 MG/ML INJ IV PRN (11:44)
[2024-06-24] MEDS: NORCO 10-325 MG PO PRN (13:59)
--- NOTE | 2024-06-24 14:26 | XRAY ---
CLINICAL HISTORY: left hip pain, unable to stand, COMPARISON: None. TECHNIQUE: Contrast-enhanced thin slice Axial CT angiography of the left lower extremity was performed with intravenous contrast with multiple reformats. One of the following dose reduction techniques were utilized for this exam: Automated exposure control, adjustment of the mA and/or kV according to patient size, use of iterative reconstruction. One of these 3D techniques was utilized: Maximum Intensity Pixel (MIP), 3D Reconstructed Images, Volume Rendered Images, Surface Shaded Rendering. FINDINGS: Status post total left hip replacement in good position and alignment with no evidence of loosening. Visualized right hip showed hip prosthesis. There is a fracture proximal aspect of left femur involving a greater trochanter. Aortic bifurcation, common external and internal iliac arteries are normal in course, caliber, and opacification showing mild intimal irregularities and calcified atheromatous plaques. Common femoral, superficial femoral and profunda femoris arteries are normal in course, caliber and opacification with no hemodynamically significant stenosis seen. Popliteal artery and visualized tibioperoneal arteries are normal in the course, calibre and opacification with no hemodynamically significant stenosis. Evident scattered atherosclerotic plaques seen in common femoral, superficial femoral, popliteal arteries Mild enlarged prostate seen Otherwise visualized pelvic organs appear unremarkable Right sided fat-containing inguinal hernia noted Left kidney small simple cyst. Mild degenerative changes seen in the left knee joint. Minimal knee joint effusion seen Irregularity at the symphysis pubis showing degenerative changes IMPRESSION: 1. Status post total left hip replacement in good position and alignment with no evidence of loosening. 2. There is a fracture proximal aspect of left femur involving greater trochanter. 3. Rest of the findings as detailed above. Electronically Signed by: Olivia Dave MD. (06/24/2024 14:21:06 EST)
[2024-06-24] MEDS: MORPHINE SULFATE 2 MG INJ IV PRN (16:07)
[2024-06-25 05:50] LABS: Hemoglobin 10.8 g/dL (13.7-17.5); Mean Cell Volume 90.7 fL (79.0-92.2); Mean Corpuscular Hgb Concent. 30.9 g/dL (32.3-36.5); Mean Platelet Volume 9.2 fL (9.4-12.4); Platelet Count 202 x10^3/uL (163-337); Red Blood Count 3.86 x10^6/uL (4.63-6.08); Red Cell Distribution Width 17.5 % (11.6-14.4); White Blood Count 9.3 x10^3/uL (4.23-9.07)
[2024-06-25 06:16] LABS: ANION GAP 8.5 MEQ/L (5-15); Calcium 8.4 mg/dL (8.4-10.2); Creatinine 1 0.92 mg/dL (0.66-1.25); EST GLOMERULAR FILTRATION RATE 80.5 ML/MIN; Potassium 3.3 mmol/L (3.5-5.1)
[2024-06-25] MEDS: Klor Con PO SCH (08:12)
--- NOTE | 2024-06-25 10:10 | PCM.NOTE ---
Date and Time: 06/25/24 1003 Subjective Assessment: 06/24/24 is a 88 year old male with history of hypertension, A-fib, COPD on 2 L nocturnal oxygen, CHF, chronic pain, and bladder cancer. He was admitted 06/23/24 after after ground-level fall. Patient was getting up from his orthopedic chair or wearing socks when he slipped and fell to the ground, "bouncing on my head multiple times". He denies any loss of consciousness, but does report headache, neck pain, and left hip pain. Head pain is worse with touching and brushing hair. Denies nausea, focal weakness or numbness. Initially was evaluated in the ED and had no fractures, but upon attempting to discharge to home, he had difficulty with ambulation due to severe pain in his leg. At baseline, he walks with a rolling walker as needed, but currently is unable to put any weight onto his left leg. He takes chronic narcotic pain medictaion for pain but states he is normally able to walk. He is unable to place any weight on his left leg. Pain increased with turning or rotation of leg. He states pain is increased from left hip to knee with pain in upper leg and hip. He has no pain when not moving. Femur XR, CT femur and Abd/ plevis pending. Will consider ortho consult. He has no shortening or rotation of LLE. He lives at home with family. He denies CP, SOB, abd pain, N/V/D. 06/25/24 Pt resting in the chair. He became increasingly confused today and required him to be transferred to a room closer to the nurses station. He may have hospital related delirium. CT showed Fx of proximal aspect of left femur involving trochanter. Ortho consulted yesterday and no surgery required but he will see pt in person today. Will need PT to [facility] tomorrow for possible placement. Continue narcotic pain meds for pain control. He is incontinent of bowel and bladder and this is new per family. UA ordered. K+ 3.3 and replaced today. He denies CP, SOB, abd pain, N/V/D. - Review of Systems Constitutional: Weakness (Left leg), No Fever, No Chills Eyes: No Symptoms Ears, Nose, & Throat: No Symptoms Respiratory: No Cough, No Short Of Breath Cardiac: No Chest Pain, No Edema, No Syncope Abdominal/Gastrointestinal: No Abdominal Pain, No Nausea, No Vomiting, No Diarrhea Genitourinary Symptoms: No Dysuria Musculoskeletal: No Back Pain, No Neck Pain Skin: No Rash Neurological: No Dizziness, No Focal Weakness, No Sensory Changes Psychological: No Symptoms, Other (confusion) Endocrine: No Symptoms Hematologic/Lymphatic: No Symptoms Immunological/Allergic: No Symptoms Objective Exam General Appearance: no apparent distress, alert Neurologic Exam: alert, normal mood/affect, sensation nml, disoriented, confusion, abnormal gait, No motor deficits Skin Exam: normal color, warm, dry Wound Assessment: Skin/Wound Assessment Wound/Incision Assessment Start: 06/24/24 01:00 Text: Status: Active Freq: Q6H Protocol: Document 06/25/24 02:00 TS (Rec: 06/25/24 02:19 TS [id number]) Wound/Incision Assessment Medial Sacrum Wound Assessment Shift Assessment Wound Type Pressure Ulcer Wound Stage Stage II Dressing Status Dry & Intact Drainage Amount None General Appearance Reddened Primary Dressing mepilex Comment mepilex in place Wound Photo Photo Taken No Eye Exam: PERRL, EOMI, eyes nml inspection Ears, Nose, Throat Exam: normal ENT inspection, pharynx normal, moist mucous membranes Neck Exam: normal inspection, non-tender, supple, full range of motion Respiratory Exam: normal breath sounds, lungs clear, No respiratory distress Cardiovascular Exam: regular rate/rhythm, normal heart sounds Gastrointestinal/Abdomen Exam: soft, No tenderness, No mass Extremity Exam: normal inspection, limited range of motion (Left leg), tenderness (left leg) Back Exam: normal inspection, normal range of motion, No CVA tenderness, No vertebral tenderness Male Genitalia Exam: deferred Rectal Exam: deferred Objective Data Vital Signs: Vital Signs - 24 hr Temp Pulse Resp BP Pulse Ox 06/25/24 08:33 95 06/25/24 07:11 97.7 F 73 16 136/65 94 L 06/25/24 03:30 98.2 F 71 16 133/63 91 L 06/24/24 23:53 98.7 F 67 16 115/55 91 L 06/24/24 19:47 99.0 F 76 16 113/58 91 L 06/24/24 18:20 91 L 06/24/24 16:00 99.1 F 70 20 166/72 90 L 06/24/24 11:32 99 F 71 24 170/73 94 L Pain Assessment - Last Documented Pain Intensity 0 Pain Scale Used 0-10 Pain Scale Intake and Output: Intake & Output 06/22/24 06/23/24 06/24/24 06/25/24 11:59 11:59 11:59 11:59 Intake Total 450 820 Balance 450 820 Weight 82.6 kg Lab Results: Lab Results-Last 24 Hours 06/25/24 06/25/24 Range/Units 05:45 05:45 WBC 9.3 H (4.23-9.07) x10^3/uL RBC 3.86 L (4.63-6.08) x10^6/uL Hgb 10.8 L (13.7-17.5) g/dL Hct 35.0 L (40.1-51.0) % MCV 90.7 (79.0-92.2) fL MCH 28.0 (25.7-32.2) pg MCHC 30.9 L (32.3-36.5) g/dL RDW 17.5 H (11.6-14.4) % Plt Count 202 (163-337) x10^3/uL MPV 9.2 L (9.4-12.4) fL Sodium 141 (135-145) mmol/L Potassium 3.3 L (3.5-5.1) mmol/L Chloride 100 (98-107) mmol/L Carbon Dioxide 36 H (22-30) mmol/L Anion Gap 8.5 (5-15) MEQ/L BUN 19 (9-20) mg/dL Creatinine 0.92 (0.66-1.25) mg/dL Estimated GFR 80.5 ML/MIN Glucose 111 H (74-106) mg/dL Calcium 8.4 (8.4-10.2) mg/dL Radiology Exams: Radiology Procedures Category Date Time Status CERVICAL SPINE WO CONTRAST [CT] Stat Exams 06/23/24 17:07 Completed CTA LOWER EXTREMITY W CONTRAST [CT] Stat Exams 06/24/24 09:50 Completed HEAD WITHOUT CONTRAST [CT] Stat Exams 06/23/24 17:07 Completed HIP UNI (2V) INCL PEL IF DONE Stat Exams 06/23/24 17:08 Completed Assessment/Plan (1) Ground-level fall Current Visit: Yes Status: Acute Code(s): W18.30XA - FALL ON SAME LEVEL, UNSPECIFIED, INITIAL ENCOUNTER (2) Left hip pain Current Visit: Yes Status: Acute Code(s): M25.552 - PAIN IN LEFT HIP (3) Pain of left femur Current Visit: Yes Status: Acute Code(s): M89.8X5 - OTHER SPECIFIED DISORDERS OF BONE, THIGH (4) BPH (benign prostatic hyperplasia) Current Visit: Yes Status: Chronic Code(s): N40.0 - BENIGN PROSTATIC HYPERPLASIA WITHOUT LOWER URINRY TRACT SYMP (5) Maxillary sinusitis Current Visit: Yes Status: Acute Code(s): 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 (6) GERD (gastroesophageal reflux disease) Current Visit: Yes Status: Chronic Code(s): K21.9 - GASTRO-ESOPHAGEAL REFLUX DISEASE WITHOUT ESOPHAGITIS (7) Depression Current Visit: Yes Status: Chronic Code(s): F32.A - DEPRESSION, UNSPECIFIED (8) Dementia Current Visit: No Status: Chronic Code(s): F03.90 - UNSP DEMENTIA, UNSP SEVERITY, WITHOUT BEH/PSYCH/MOOD/ANX (9) Chronic pain Current Visit: Yes Status: Chronic Code(s): G89.29 - OTHER CHRONIC PAIN (10) HTN (hypertension) Current Visit: Yes Status: Chronic Assessment & Plan: (1) Ground-level fall Current Visit: Yes Status: Acute Assessment & Plan: - Normally walks with walker at home- unable to put weight on left leg, increased pain of Left hip and leg with any movement. - Narcotic pain meds - Radiology results reviewed - PT eval and treat 06/25 - Radiology results reviewed - Ortho consulted 06/24/24- no surgery required at this time - ortho to see pt tday Code(s): W18.30XA - FALL ON SAME LEVEL, UNSPECIFIED, INITIAL ENCOUNTER (2) Left hip pain Current Visit: Yes Status: Acute Assessment & Plan: - Left hip XR reviewed- shows no fx - CT reviewed Code(s): M25.552 - PAIN IN LEFT HIP (3) Pain of left femur Current Visit: Yes Status: Acute Assessment & Plan: - XR reviewed - CT- reviewed Code(s): M89.8X5 - OTHER SPECIFIED DISORDERS OF BONE, THIGH (4) BPH (benign prostatic hyperplasia) Current Visit: Yes Status: Chronic Assessment & Plan: - Continue Flomax - CMP reviewed Code(s): N40.0 - BENIGN PROSTATIC HYPERPLASIA WITHOUT LOWER URINRY TRACT SYMP (5) Maxillary sinusitis Current Visit: Yes Status: Acute Assessment & Plan: - as seen on CT head - Amoxicillin gave in the ER - Pt denies any sinus complaints - CBC reviewed Code(s): 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 (6) GERD (gastroesophageal reflux disease) Current Visit: Yes Status: Chronic Assessment & Plan: - Continue protonix Code(s): K21.9 - GASTRO-ESOPHAGEAL REFLUX DISEASE WITHOUT ESOPHAGITIS (7) Depression Current Visit: Yes Status: Chronic Assessment & Plan: - Continue home meds Code(s): F32.A - DEPRESSION, UNSPECIFIED (8) Dementia Current Visit: No Status: Chronic Assessment & Plan: - Continue home meds Code(s): F03.90 - UNSP DEMENTIA, UNSP SEVERITY, WITHOUT BEH/PSYCH/MOOD/ANX (9) Chronic pain Current Visit: Yes Status: Chronic Assessment & Plan: - For OA- takes MS contin OP- continue - Morphine IV PRN - Narcan PRN resp depression Code(s): G89.29 - OTHER CHRONIC PAIN (10) HTN (hypertension) Current Visit: Yes Status: Chronic Assessment & Plan: - acute on chronic - BP increased 2:2 pain - Monitor BP - Continue home meds - Hydralizine PRN 06/25 - BP improved - Pain better controlled Code(s): I10 - ESSENTIAL (PRIMARY) HYPERTENSION Code(s): I10 - ESSENTIAL (PRIMARY) HYPERTENSION (11) Confusion Current Visit: Yes Status: Acute Assessment & Plan: - may be 2:2 hospital related delirum vs. pain meds - moved closer to nurses station - UA pending Code(s): R41.0 - DISORIENTATION, UNSPECIFIED (12) Fracture of femur, trochanteric Current Visit: Yes Status: Acute Assessment & Plan: - Fx of proximal aspect of left femur involving trochanter- seen on CT - ortho consulted- recs no surgery at this time - PT eval and treat Code(s): S72.109A - UNSP TROCHANTERIC FRACTURE OF UNSP FEMUR, INIT FOR CLOS FX (13) Hypokalemia Current Visit: Yes Status: Acute Assessment & Plan: - K+ 3.3- replaced- trend - tele Code(s): E87.6 - HYPOKALEMIA (14) Incontinence Current Visit: Yes Status: Acute Assessment & Plan: - of bowel and bladder - may be r/t hospital acquired delirium vs pain meds - UA pending VTE: Eliquis PPI: Protonix Next of KIN: Spouse D/C plan: 1-2 days Code status: Full Code(s): R32 - UNSPECIFIED URINARY INCONTINENCE
[2024-06-25 11:11] LABS: Appearance Clear (Clear); Bacteria None Seen /HPF (None Seen); Bilirubin Negative (Negative); Blood Negative (Negative); Epithelial Cells None Seen /HPF (None Seen); Glucose, Urine Negative (Negative); Hyaline Casts NONE SEEN /LPF (0-2); Ketones Negative (Negative); Leukocyte Esterase Negative (Negative); Nitrite Negative (Negative); Protein,Urine Dip Negative (Negative); RBC 0-2 /HPF (0-5); Specific Gravity 1.025 (1.005-1.030); WBC 0-2 /HPF (0-5)
[2024-06-25] MEDS: TYLENOL 325 MG PO PRN (15:06)
[2024-06-25] MEDS: CEPACOL SORE THROAT LOZENGE PO PRN (16:17)
[2024-06-25] MEDS: Lasix 40 MG PO SCH (17:54)
[2024-06-26 05:01] LABS: Hematocrit 32.4 % (40.1-51.0); Mean Corpuscular Hemoglobin 28.1 pg (25.7-32.2); Mean Corpuscular Hgb Concent. 30.9 g/dL (32.3-36.5); Mean Platelet Volume 9.5 fL (9.4-12.4); Platelet Count 207 x10^3/uL (163-337); Red Blood Count 3.56 x10^6/uL (4.63-6.08); Red Cell Distribution Width 17.6 % (11.6-14.4); White Blood Count 8.2 x10^3/uL (4.23-9.07)
[2024-06-26 05:23] LABS: ALBUMIN 2.6 g/dL (3.5-5.0); ANION GAP 5.2 MEQ/L (5-15); BILIRUBIN,TOTAL 0.5 mg/dL (0.2-1.3); Calcium 8.2 mg/dL (8.4-10.2); Creatinine 1 0.89 mg/dL (0.66-1.25); EST GLOMERULAR FILTRATION RATE 82.9 ML/MIN; MAGNESIUM 1.9 mg/dL (1.6-2.3); Potassium 3.7 mmol/L (3.5-5.1)
--- NOTE | 2024-06-26 05:25 | PCM.NOTE ---
Date and Time: 06/26/24 0520 Subjective Assessment: HPI: is a 88 year old male with history of hypertension, A-fib, COPD on 2 L nocturnal oxygen, CHF, chronic pain, and bladder cancer admitted 06/23/24 after after ground-level fall. Patient was getting up from his orthopedic chair or wearing socks when he slipped and fell to the ground, "bouncing on my head multiple times". No LOC. Denies nausea, focal weakness or numbness. Initially was evaluated in the ED and had no fractures, but upon attempting to discharge to home, he had difficulty with ambulation due to severe pain in his leg. At baseline, he walks with a rolling walker as needed, but currently is unable to put any weight onto his left leg. He takes chronic narcotic pain medication for pain but states he is normally able to walk. He is unable to place any weight on his left leg. Pain increased with turning or rotation of leg. He states pain is increased from left hip to knee with pain in upper leg and hip. He has no pain when not moving.No shortening or rotation of LLE. CT of the cervical spine negative for acute findings. CT head negative for acute findings. Hip xray with no bony or soft tissue abnormalities. CT A Lower ext demonstrating a fracture to the proximal aspect of the left femur involving greater trochanter. Ortho has been consulted with plans to treat conservatively with NWB/PT- no surgical intervention. 06/26/24: Met with patient bedside. Overnight events of confusion noted by staff. Patient alert and orientated to self and place this morning. States he is considering rehab and would like to discuss with CM. Pain to left ext this morning is 5/10. No other complaints. Patient does take zyprexa at home which we will continue. - Review of Systems Constitutional: No Symptoms Eyes: No Symptoms Ears, Nose, & Throat: No Symptoms Respiratory: No Symptoms Cardiac: No Symptoms Abdominal/Gastrointestinal: No Symptoms Genitourinary Symptoms: No Symptoms Musculoskeletal: Joint Pain (LLE) Skin: No Symptoms Neurological: No Symptoms Psychological: Hallucinations (per staff educator at night), Memory Loss Endocrine: No Symptoms Hematologic/Lymphatic: No Symptoms Immunological/Allergic: No Symptoms Objective Exam General Appearance: no apparent distress Neurologic Exam: alert, cooperative, disoriented, confusion Skin Exam: normal color Wound Assessment: Skin/Wound Assessment Wound/Incision Assessment Start: 06/24/24 01:00 Text: Status: Active Freq: Q6H Protocol: Document 06/26/24 02:00 MM (Rec: 06/26/24 02:15 MM [id number]) Wound/Incision Assessment Medial Sacrum Wound Assessment Shift Assessment Wound Type Pressure Ulcer Wound Stage Stage II General Appearance Reddened Comment barrier cream applied prn Wound Photo Photo Taken No Eye Exam: PERRL Ears, Nose, Throat Exam: normal ENT inspection Neck Exam: normal inspection Respiratory Exam: normal breath sounds, lungs clear Cardiovascular Exam: regular rate/rhythm, normal heart sounds Gastrointestinal/Abdomen Exam: soft, normal bowel sounds Extremity Exam: limited range of motion (LLE) Back Exam: normal inspection Male Genitalia Exam: deferred Rectal Exam: deferred Objective Data Vital Signs: Vital Signs - 24 hr Temp Pulse Resp BP Pulse Ox 06/26/24 03:45 98.7 F 66 18 178/78 98 06/26/24 00:00 98.7 F 66 18 178/78 98 06/25/24 19:41 92 L 06/25/24 19:20 97.9 F 78 17 143/62 94 L 06/25/24 16:00 98.3 F 78 16 145/68 93 L 06/25/24 11:18 97.6 F 72 16 138/67 89 L 06/25/24 08:33 95 06/25/24 07:11 97.7 F 73 16 136/65 94 L Pain Assessment - Last Documented Pain Intensity 0 Pain Scale Used 0-10 Pain Scale Intake and Output: Intake & Output 06/23/24 06/24/24 06/25/24 06/26/24 11:59 11:59 11:59 11:59 Intake Total 581 864 8838 Output Total 825 Balance 450 820 555 Weight 82.6 kg Lab Results: Lab Results-Last 24 Hours 06/25/24 06/25/24 06/25/24 Range/Units 05:45 05:45 17:11 WBC 9.3 H (4.23-9.07) x10^3/uL RBC 3.86 L (4.63-6.08) x10^6/uL Hgb 10.8 L (13.7-17.5) g/dL Hct 35.0 L (40.1-51.0) % MCV 90.7 (79.0-92.2) fL MCH 28.0 (25.7-32.2) pg MCHC 30.9 L (32.3-36.5) g/dL RDW 17.5 H (11.6-14.4) % Plt Count 202 (163-337) x10^3/uL MPV 9.2 L (9.4-12.4) fL Sodium 141 (135-145) mmol/L Potassium 3.3 L 4.0 D (3.5-5.1) mmol/L Chloride 100 (98-107) mmol/L Carbon Dioxide 36 H (22-30) mmol/L Anion Gap 8.5 (5-15) MEQ/L BUN 19 (9-20) mg/dL Creatinine 0.92 (0.66-1.25) mg/dL Estimated GFR 80.5 ML/MIN Glucose 111 H (74-106) mg/dL Calcium 8.4 (8.4-10.2) mg/dL Urine Color (Yellow) Urine Appearance (Clear) Urine pH (4.6-8.0) Ur Specific [place] (1.005-1.030) Urine Protein (Negative) Urine Glucose (UA) (Negative) mg/dL Urine Ketones (Negative) Urine Blood (Negative) Urine Nitrite (Negative) Urine Bilirubin (Negative) Urine Urobilinogen (0.2) mg/dL Ur Leukocyte Esterase (Negative) U Hyaline Cast (Auto) (0-2) /LPF Urine Microscopic RBC (0-5) /HPF Urine Microscopic WBC (0-5) /HPF Ur Epithelial Cells (None Seen) /HPF Urine Bacteria (None Seen) /HPF Urine Culture Reflexed (NO) 06/25/24 06/26/24 Range/Units Unknown 04:56 WBC 8.2 (4.23-9.07) x10^3/uL RBC 3.56 L (4.63-6.08) x10^6/uL Hgb 10.0 L (13.7-17.5) g/dL Hct 32.4 L (40.1-51.0) % MCV 91.0 (79.0-92.2) fL MCH 28.1 (25.7-32.2) pg MCHC 30.9 L (32.3-36.5) g/dL RDW 17.6 H (11.6-14.4) % Plt Count 207 (163-337) x10^3/uL MPV 9.5 (9.4-12.4) fL Sodium (135-145) mmol/L Potassium (3.5-5.1) mmol/L Chloride (98-107) mmol/L Carbon Dioxide (22-30) mmol/L Anion Gap (5-15) MEQ/L BUN (9-20) mg/dL Creatinine (0.66-1.25) mg/dL Estimated GFR ML/MIN Glucose (74-106) mg/dL Calcium (8.4-10.2) mg/dL Urine Color Yellow (Yellow) Urine Appearance Clear (Clear) Urine pH 5.0 (4.6-8.0) Ur Specific [place] 1.025 (1.005-1.030) Urine Protein Negative (Negative) Urine Glucose (UA) Negative (Negative) mg/dL Urine Ketones Negative (Negative) Urine Blood Negative (Negative) Urine Nitrite Negative (Negative) Urine Bilirubin Negative (Negative) Urine Urobilinogen 1.0 A (0.2) mg/dL Ur Leukocyte Esterase Negative (Negative) U Hyaline Cast (Auto) NONE SEEN (0-2) /LPF Urine Microscopic RBC 0-2 (0-5) /HPF Urine Microscopic WBC 0-2 (0-5) /HPF Ur Epithelial Cells None Seen (None Seen) /HPF Urine Bacteria None Seen (None Seen) /HPF Urine Culture Reflexed NO (NO) Radiology Exams: Radiology Procedures Category Date Time Status CTA LOWER EXTREMITY W CONTRAST [CT] Stat Exams 06/24/24 09:50 Completed Assessment/Plan (1) Fracture of left femur Current Visit: Yes Status: Acute Assessment & Plan: - Ambulates with walker at baseline - unable to put weight on left leg, increased pain of Left hip and leg with any movement -CTA reviewed from 06/24/24 showing a fracture to the proximal aspect of the left femur involving greater trochanter - CT of the cervical spine negative for acute findings -CT head negative for acute findings -Hip xray with no bony or soft tissue abnormalities -Ortho consulted - no plans for surgical intervention - Narcotic pain meds - PT eval and treat -pending rehab placement -CMP/cbc reviewed Code(s): S72.92XA - UNSP FRACTURE OF LEFT FEMUR, INIT ENCNTR FOR CLOSED FRACTURE (2) Ground-level fall Current Visit: Yes Status: Acute Assessment & Plan: -see plan for fracture Code(s): W18.30XA - FALL ON SAME LEVEL, UNSPECIFIED, INITIAL ENCOUNTER (3) Left hip pain Current Visit: Yes Status: Acute Assessment & Plan: - Left hip XR reviewed- as stated above - CTA as stated above - plan stated above Code(s): M25.552 - PAIN IN LEFT HIP (4) Pain of left femur Current Visit: Yes Status: Acute Assessment & Plan: -see plan for fracture Code(s): M89.8X5 - OTHER SPECIFIED DISORDERS OF BONE, THIGH (5) Maxillary sinusitis Current Visit: Yes Status: Acute Assessment & Plan: - as seen on CT head - Amoxicillin given in ED - Pt denies any sinus complaints Code(s): 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 (6) BPH (benign prostatic hyperplasia) Current Visit: Yes Status: Chronic Assessment & Plan: - Continue Flomax Code(s): N40.0 - BENIGN PROSTATIC HYPERPLASIA WITHOUT LOWER URINRY TRACT SYMP (7) Chronic pain Current Visit: Yes Status: Chronic Assessment & Plan: - For OA- takes MS contin OP- continue - Narcan PRN resp depression Code(s): G89.29 - OTHER CHRONIC PAIN (8) Depression Current Visit: Yes Status: Chronic Assessment & Plan: - Continue home meds Code(s): F32.A - DEPRESSION, UNSPECIFIED (9) GERD (gastroesophageal reflux disease) Current Visit: Yes Status: Chronic Assessment & Plan: - Continue protonix Code(s): K21.9 - GASTRO-ESOPHAGEAL REFLUX DISEASE WITHOUT ESOPHAGITIS (10) HTN (hypertension) Current Visit: Yes Status: Chronic Assessment & Plan: - BP increased 2:2 pain - Monitor BP - Continue home meds - Hydralizine PRN Code(s): I10 - ESSENTIAL (PRIMARY) HYPERTENSION (11) Dementia Current Visit: No Status: Chronic Assessment & Plan: - Continue home meds VTE: Eliquis PPI: Protonix Next of KIN: Spouse D/C plan: 1-2 days Code status: Full Code(s): F03.90 - UNSP DEMENTIA, UNSP SEVERITY, WITHOUT BEH/PSYCH/MOOD/ANX
--- NOTE | 2024-06-26 11:49 | CONS ---
DETAILS OF EVALUATION: The patient was seen and examined and his chart was reviewed. The patient was admitted on 06/23/2024 with left hip pain. During the course of his admission, workup was obtained from getting a left hip x-ray as well as left hip CT. The hip x-ray showed no evidence of fracture; however, there was a fracture of the greater trochanter noted on the CT scan. The patient has a significant medical history which is positive for congestive heart failure, pleural effusion, hypertension, atrial fibrillation with rapid ventricular response, history of previous pneumonia, urinary retention. The patient also has had a history of bladder cancer. The patient states that he was walking at home, fell, and began having hip pain. He was seen and admitted. Again, the above studies showed the greater trochanter fracture. PHYSICAL EXAMINATION: The leg lengths are equal. There is a good range of motion of the left hip. There is pain throughout the arc of motion due to the acute fracture. CMS is intact to the left lower extremity. Motor strength is 5/5. Sensory is intact to light touch. 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 CT scan of the left hip dated 06/24/2024 demonstrates a nondisplaced fracture involving the greater trochanter of the left hip. IMPRESSION: Acute nondisplaced greater trochanter fracture of the left hip. RECOMMENDATIONS AND PLAN: The patient can ambulate, weightbearing as tolerated on the left lower extremity. We will have Physical Therapy begin working with the patient with gait training. Pain control per Family Medicine/Internal Medicine. Follow up in the orthopedic office in about 3 weeks for recheck evaluation with x-ray. Thank you for allowing us to see the patient and participate in his case.
[2024-06-26] MEDS ORDERED: NON-FORMULARY ITEM (Naloxone Hcl [Narcan] 4 MG Spray) IN SCH (12:00)
[2024-06-26] MEDS ORDERED: MEDICATION INTERVENTION MC SCH (12:15)
[2024-06-27 04:54] LABS: Absolute Neutrophil Ct (ANC) 5.47 x10^3/uL (1.78-5.38); Basophil (Absolute #) 0 x10^3/uL (0.01-0.08); Eosinophil % 6.1 % (0.8-7.0); Eosinophil (Absolute #) 0.53 x10^3/uL (0.04-0.54); Hematocrit 30.9 % (40.1-51.0); Hemoglobin 9.8 g/dL (13.7-17.5); IMMATURE GRAN # 0.02 x10^3u/L (0.001-0.031); IMMATURE GRAN % 0.2 % (0.001-0.429); Lymphocyte (Absolute #) 1.52 x10^3/uL (1.32-3.57); Lymphocytes % 17.5 % (21.8-53.1); Mean Cell Volume 90.6 fL (79.0-92.2); Mean Corpuscular Hemoglobin 28.7 pg (25.7-32.2); Mean Corpuscular Hgb Concent. 31.7 g/dL (32.3-36.5); Monocyte (Absolute #) 1.14 x10^3/uL (0.30-0.82); Monocytes % 13.1 % (5.3-12.2); Neutrophil % 63.1 % (34.0-67.9); Platelet Count 202 x10^3/uL (163-337); Red Blood Count 3.41 x10^6/uL (4.63-6.08); Red Cell Distribution Width 17.5 % (11.6-14.4); White Blood Count 8.7 x10^3/uL (4.23-9.07)
[2024-06-27 05:18] LABS: ALBUMIN 2.6 g/dL (3.5-5.0); ANION GAP 4.6 MEQ/L (5-15); BILIRUBIN,TOTAL 0.7 mg/dL (0.2-1.3); Creatinine 1 0.93 mg/dL (0.66-1.25); EST GLOMERULAR FILTRATION RATE 79.5 ML/MIN; Potassium 3.5 mmol/L (3.5-5.1); Total Protein 5.8 g/dL (6.3-8.2)
--- NOTE | 2024-06-27 05:18 | PCM.NOTE ---
Date and Time: 06/27/24 0517 Subjective Assessment: HPI: is a 88 year old male with history of hypertension, A-fib, COPD on 2 L nocturnal oxygen, CHF, chronic pain, and bladder cancer admitted 06/23/24 after after ground-level fall. Patient was getting up from his orthopedic chair or wearing socks when he slipped and fell to the ground, "bouncing on my head multiple times". No LOC. Denies nausea, focal weakness or numbness. Initially was evaluated in the ED and had no fractures, but upon attempting to discharge to home, he had difficulty with ambulation due to severe pain in his leg. At baseline, he walks with a rolling walker as needed, but currently is unable to put any weight onto his left leg. He takes chronic narcotic pain medication for pain but states he is normally able to walk. He is unable to place any weight on his left leg. Pain increased with turning or rotation of leg. He states pain is increased from left hip to knee with pain in upper leg and hip. He has no pain when not moving.No shortening or rotation of LLE. CT of the cervical spine negative for acute findings. CT head negative for acute findings. Hip xray with no bony or soft tissue abnormalities. CT A Lower ext demonstrating a fracture to the proximal aspect of the left femur involving greater trochanter. Ortho has been consulted with plans to treat conservatively with NWB/PT- no surgical intervention. 06/26/24: Met with patient bedside. Overnight events of confusion noted by staff. Patient alert and orientated to self and place this morning. States he is considering rehab and would like to discuss with CM. Pain to left ext this morning is 5/10. No other complaints. Patient does take zyprexa at home which we will continue. 06/27/24: No overnight events noted. Endorses continued pain to Left hip. Discussed imaging and ortho recommendations of no surgery. Patient agreeable to SNF. Placement pending. No other concerns at this time. Patient is psychologically stable. I anticipate a length of stay less than 30 days. Denies fever,cough, sob, cp, abdominal pain, PEREZ, dizziness, N/V/D. - Review of Systems Constitutional: No Symptoms Eyes: No Symptoms Ears, Nose, & Throat: No Symptoms Respiratory: No Symptoms Cardiac: No Symptoms Abdominal/Gastrointestinal: No Symptoms Genitourinary Symptoms: No Symptoms Musculoskeletal: Joint Pain (left hip) Skin: No Symptoms Neurological: No Symptoms Psychological: No Symptoms Endocrine: No Symptoms Hematologic/Lymphatic: No Symptoms Objective Exam General Appearance: no apparent distress Neurologic Exam: alert, cooperative, other (orientated to self, place, situation) Skin Exam: normal color Wound Assessment: Skin/Wound Assessment Wound/Incision Assessment Start: 06/24/24 01:00 Text: Status: Active Freq: Q6H Protocol: Document 06/27/24 02:00 MM (Rec: 06/27/24 02:11 MM [id number]) Wound/Incision Assessment Medial Sacrum Wound Assessment Shift Assessment Wound Type Pressure Ulcer Wound Stage Stage II General Appearance Reddened Comment barrier cream applied prn Wound Photo Photo Taken No Eye Exam: PERRL Ears, Nose, Throat Exam: normal ENT inspection Neck Exam: normal inspection Respiratory Exam: normal breath sounds, lungs clear Cardiovascular Exam: regular rate/rhythm, normal heart sounds Gastrointestinal/Abdomen Exam: soft, normal bowel sounds Extremity Exam: limited range of motion (left ext) Back Exam: normal inspection Male Genitalia Exam: deferred Objective Data Vital Signs: Vital Signs - 24 hr Temp Pulse Resp BP Pulse Ox 06/27/24 03:33 97.7 F 66 16 166/74 96 06/26/24 20:18 90 L 06/26/24 19:51 98.0 F 84 16 138/63 92 L 06/26/24 16:00 98.2 F 76 18 146/66 93 L 06/26/24 11:38 98.0 F 67 20 167/71 94 L 06/26/24 08:00 98.9 F 72 18 142/68 91 L 06/26/24 07:31 92 L Pain Assessment - Last Documented Pain Intensity 0 Pain Scale Used 0-10 Pain Scale Intake and Output: Intake & Output 06/24/24 06/25/24 06/26/24 06/27/24 11:59 11:59 11:59 11:59 Intake Total 911 252 3688 240 Output Total 1725 325 Balance 450 820 135 -85 Weight 82.6 kg Lab Results: Lab Results-Last 24 Hours 06/26/24 06/27/24 Range/Units 04:56 04:50 WBC 8.7 (4.23-9.07) x10^3/uL RBC 3.41 L (4.63-6.08) x10^6/uL Hgb 9.8 L (13.7-17.5) g/dL Hct 30.9 L (40.1-51.0) % MCV 90.6 (79.0-92.2) fL MCH 28.7 (25.7-32.2) pg MCHC 31.7 L (32.3-36.5) g/dL RDW 17.5 H (11.6-14.4) % Plt Count 202 (163-337) x10^3/uL MPV 9.0 L (9.4-12.4) fL Gran % 63.1 (34.0-67.9) % Immature Gran % (Auto) 0.2 (0.001-0.429) % Nucleat RBC Rel Count 0.0 (0.00-0.2) % Eos # (Auto) 0.53 (0.04-0.54) x10^3/uL Immature Gran # (Auto) 0.02 (0.001-0.031) x10^3u/L Absolute Lymphs (auto) 1.52 (1.32-3.57) x10^3/uL Absolute Monos (auto) 1.14 H (0.30-0.82) x10^3/uL Absolute Nucleated RBC 0.00 (0.00-0.012) x10^3u/L Lymphocytes % 17.5 L (21.8-53.1) % Monocytes % 13.1 H (5.3-12.2) % Eosinophils % 6.1 (0.8-7.0) % Basophils % 0.0 L (0.2-1.2) % Absolute Granulocytes 5.47 H (1.78-5.38) x10^3/uL Basophils # 0 L (0.01-0.08) x10^3/uL Sodium 141 (135-145) mmol/L Potassium 3.7 (3.5-5.1) mmol/L Chloride 104 (98-107) mmol/L Carbon Dioxide 35 H (22-30) mmol/L Anion Gap 5.2 (5-15) MEQ/L BUN 18 (9-20) mg/dL Creatinine 0.89 (0.66-1.25) mg/dL Estimated GFR 82.9 ML/MIN Glucose 124 H (74-106) mg/dL Calcium 8.2 L (8.4-10.2) mg/dL Magnesium 1.9 (1.6-2.3) mg/dL Total Bilirubin 0.50 (0.2-1.3) mg/dL AST 20 (17-59) U/L ALT 16 (0-50) U/L Alkaline Phosphatase 86 (38-126) U/L Serum Total Protein 6.0 L (6.3-8.2) g/dL Albumin 2.6 L (3.5-5.0) g/dL Multi-Disciplinary Progress Notes: Multi-Disciplinary Progress Notes 06/26/24 14:00 (created 06/26/24 15:28) Case Management Note by Keesha Pinedo PAPERWORK INITIATED- HAS TO BE REVIEWED REFERRAL FAXED TO [facility] Initialized on 06/26/24 15:28 - END OF NOTE Assessment/Plan (1) Fracture of left femur Current Visit: Yes Status: Acute Assessment & Plan: - Ambulates with walker at baseline - unable to put weight on left leg, increased pain of Left hip and leg with any movement -CTA reviewed from 06/24/24 showing a fracture to the proximal aspect of the left femur involving greater trochanter - CT of the cervical spine negative for acute findings -CT head negative for acute findings -Hip xray with no bony or soft tissue abnormalities -Ortho consulted - no plans for surgical intervention - Narcotic pain meds - PT eval and treat -pending rehab placement -CMP/cbc reviewed 06/27: -Pain controlled with current pain medication regimen- meds reviewed and changed MS contin to home dosing -Continue IPPT - SNF pending Code(s): S72.92XA - UNSP FRACTURE OF LEFT FEMUR, INIT ENCNTR FOR CLOSED FRACTURE (2) Ground-level fall Current Visit: Yes Status: Acute Assessment & Plan: -see plan for fracture Code(s): W18.30XA - FALL ON SAME LEVEL, UNSPECIFIED, INITIAL ENCOUNTER (3) Left hip pain Current Visit: Yes Status: Acute Assessment & Plan: - Left hip XR reviewed- as stated above - CTA as stated above - plan stated above Code(s): M25.552 - PAIN IN LEFT HIP (4) Pain of left femur Current Visit: Yes Status: Acute Assessment & Plan: -see plan for fracture Code(s): M89.8X5 - OTHER SPECIFIED DISORDERS OF BONE, THIGH (5) Maxillary sinusitis Current Visit: Yes Status: Acute Assessment & Plan: - as seen on CT head - Amoxicillin given in ED - Pt denies any sinus complaints Code(s): 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 (6) BPH (benign prostatic hyperplasia) Current Visit: Yes Status: Chronic Assessment & Plan: - Continue Flomax Code(s): N40.0 - BENIGN PROSTATIC HYPERPLASIA WITHOUT LOWER URINRY TRACT SYMP (7) Chronic pain Current Visit: Yes Status: Chronic Assessment & Plan: - For OA- takes MS contin OP- continue - Narcan PRN resp depression Code(s): G89.29 - OTHER CHRONIC PAIN (8) Depression Current Visit: Yes Status: Chronic Assessment & Plan: - Continue home meds Code(s): F32.A - DEPRESSION, UNSPECIFIED (9) GERD (gastroesophageal reflux disease) Current Visit: Yes Status: Chronic Assessment & Plan: - Continue protonix Code(s): K21.9 - GASTRO-ESOPHAGEAL REFLUX DISEASE WITHOUT ESOPHAGITIS (10) HTN (hypertension) Current Visit: Yes Status: Chronic Assessment & Plan: - BP increased 2:2 pain - Monitor BP - Continue home meds - Hydralizine PRN Code(s): I10 - ESSENTIAL (PRIMARY) HYPERTENSION VTE: Eliquis PPI: Protonix Next of KIN: Spouse D/C plan: 1-2 days Code status: Full Code(s): S72.92XA - UNSP FRACTURE OF LEFT FEMUR, INIT ENCNTR FOR CLOSED FRACTURE (2) Ground-level fall Current Visit: Yes Status: Acute Code(s): W18.30XA - FALL ON SAME LEVEL, UNSPECIFIED, INITIAL ENCOUNTER (3) Left hip pain Current Visit: Yes Status: Acute Code(s): M25.552 - PAIN IN LEFT HIP (4) Pain of left femur Current Visit: Yes Status: Acute Code(s): M89.8X5 - OTHER SPECIFIED DISORDERS OF BONE, THIGH (5) Maxillary sinusitis Current Visit: Yes Status: Acute Code(s): 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
[2024-06-27] MEDS: Ms Contin 15 MG PO SCH ×2 (09:42→21:08)
[2024-06-27] MEDS ORDERED: NON-FORMULARY ITEM (Cholecalciferol (Vitamin D3) [Vitamin D3] 25 MCG Capsule) PO SCH (10:00)
[2024-06-28 04:28] VITALS: RESP 16
[2024-06-28 04:46] LABS: Absolute Neutrophil Ct (ANC) 4.01 x10^3/uL (1.78-5.38); BASOPHIL % 0.1 % (0.2-1.2); Basophil (Absolute #) 0.01 x10^3/uL (0.01-0.08); Eosinophil % 10.2 % (0.8-7.0); Eosinophil (Absolute #) 0.72 x10^3/uL (0.04-0.54); Hematocrit 30.7 % (40.1-51.0); Hemoglobin 9.7 g/dL (13.7-17.5); IMMATURE GRAN # 0.03 x10^3u/L (0.001-0.031); IMMATURE GRAN % 0.4 % (0.001-0.429); Lymphocyte (Absolute #) 1.44 x10^3/uL (1.32-3.57); Lymphocytes % 20.3 % (21.8-53.1); Mean Cell Volume 90.6 fL (79.0-92.2); Mean Corpuscular Hemoglobin 28.6 pg (25.7-32.2); Mean Corpuscular Hgb Concent. 31.6 g/dL (32.3-36.5); Mean Platelet Volume 9.4 fL (9.4-12.4); Monocyte (Absolute #) 0.87 x10^3/uL (0.30-0.82); Monocytes % 12.3 % (5.3-12.2); Neutrophil % 56.7 % (34.0-67.9); Platelet Count 209 x10^3/uL (163-337); Red Blood Count 3.39 x10^6/uL (4.63-6.08); Red Cell Distribution Width 17.5 % (11.6-14.4); White Blood Count 7.1 x10^3/uL (4.23-9.07)
[2024-06-28 05:02] LABS: ALBUMIN 2.6 g/dL (3.5-5.0); ANION GAP 6.3 MEQ/L (5-15); BILIRUBIN,TOTAL 0.7 mg/dL (0.2-1.3); Calcium 8.3 mg/dL (8.4-10.2); Creatinine 1 0.85 mg/dL (0.66-1.25); EST GLOMERULAR FILTRATION RATE 84.1 ML/MIN; Potassium 3.5 mmol/L (3.5-5.1); Total Protein 5.9 g/dL (6.3-8.2)
--- NOTE | 2024-06-28 05:07 | PCM.NOTE ---
Date and Time: 06/28/24 0506 Subjective Assessment: HPI: is a 88 year old male with history of hypertension, A-fib, COPD on 2 L nocturnal oxygen, CHF, chronic pain, and bladder cancer admitted 06/23/24 after after ground-level fall. Patient was getting up from his orthopedic chair or wearing socks when he slipped and fell to the ground, "bouncing on my head multiple times". No LOC. Denies nausea, focal weakness or numbness. Initially was evaluated in the ED and had no fractures, but upon attempting to discharge to home, he had difficulty with ambulation due to severe pain in his leg. At baseline, he walks with a rolling walker as needed, but currently is unable to put any weight onto his left leg. He takes chronic narcotic pain medication for pain but states he is normally able to walk. He is unable to place any weight on his left leg. Pain increased with turning or rotation of leg. He states pain is increased from left hip to knee with pain in upper leg and hip. He has no pain when not moving.No shortening or rotation of LLE. CT of the cervical spine negative for acute findings. CT head negative for acute findings. Hip xray with no bony or soft tissue abnormalities. CT A Lower ext demonstrating a fracture to the proximal aspect of the left femur involving greater trochanter. Ortho has been consulted with plans to treat conservatively with NWB/PT- no surgical intervention. 06/26/24: Met with patient bedside. Overnight events of confusion noted by staff. Patient alert and orientated to self and place this morning. States he is considering rehab and would like to discuss with CM. Pain to left ext this morning is 5/10. No other complaints. Patient does take zyprexa at home which we will continue. 06/27/24: No overnight events noted. Endorses continued pain to Left hip. Discussed imaging and ortho recommendations of no surgery. Patient agreeable to SNF. Placement pending. No other concerns at this time. Patient is psychologically stable. I anticipate a length of stay less than 30 days. Denies fever,cough, sob, cp, abdominal pain, PEREZ, dizziness, N/V/D. Objective Exam Wound Assessment: Skin/Wound Assessment Wound/Incision Assessment Start: 06/24/24 01:00 Text: Status: Active Freq: Q6 Protocol: Document 06/28/24 02:00 ROBERTO CARLOS (Rec: 06/28/24 02:24 AK [id number]) Wound/Incision Assessment Medial Sacrum Wound Assessment Shift Assessment Wound Type Pressure Ulcer Wound Stage Stage II Drainage Amount None General Appearance Reddened Comment open to air - barrier cream applied prn Wound Photo Photo Taken No Objective Data Vital Signs: Vital Signs - 24 hr Temp Pulse Resp BP Pulse Ox 06/28/24 04:00 97.5 F 64 16 171/73 96 06/28/24 00:00 64 11 L 06/27/24 19:36 97.9 F 70 16 144/63 93 L 06/27/24 19:05 93 L 06/27/24 16:00 97.8 F 68 16 129/89 93 L 06/27/24 11:53 97.5 F 71 16 117/58 95 06/27/24 08:34 100 06/27/24 07:19 97.8 F 65 16 121/64 95 Pain Assessment - Last Documented Pain Intensity 4 Pain Scale Used 0-10 Pain Scale Intake and Output: Intake & Output 06/25/24 06/26/24 06/27/24 06/28/24 11:59 11:59 11:59 11:59 Intake Total 820 1860 720 660 Output Total 1725 325 150 Balance 820 135 395 510 Weight 82.6 kg Lab Results: Lab Results-Last 24 Hours 06/27/24 06/28/24 Range/Units 04:50 04:42 WBC 7.1 (4.23-9.07) x10^3/uL RBC 3.39 L (4.63-6.08) x10^6/uL Hgb 9.7 L (13.7-17.5) g/dL Hct 30.7 L (40.1-51.0) % MCV 90.6 (79.0-92.2) fL MCH 28.6 (25.7-32.2) pg MCHC 31.6 L (32.3-36.5) g/dL RDW 17.5 H (11.6-14.4) % Plt Count 209 (163-337) x10^3/uL MPV 9.4 (9.4-12.4) fL Gran % 56.7 (34.0-67.9) % Immature Gran % (Auto) 0.4 (0.001-0.429) % Nucleat RBC Rel Count 0.0 (0.00-0.2) % Eos # (Auto) 0.72 H (0.04-0.54) x10^3/uL Immature Gran # (Auto) 0.03 (0.001-0.031) x10^3u/L Absolute Lymphs (auto) 1.44 (1.32-3.57) x10^3/uL Absolute Monos (auto) 0.87 H (0.30-0.82) x10^3/uL Absolute Nucleated RBC 0.00 (0.00-0.012) x10^3u/L Lymphocytes % 20.3 L (21.8-53.1) % Monocytes % 12.3 H (5.3-12.2) % Eosinophils % 10.2 H (0.8-7.0) % Basophils % 0.1 L (0.2-1.2) % Absolute Granulocytes 4.01 (1.78-5.38) x10^3/uL Basophils # 0.01 (0.01-0.08) x10^3/uL Sodium 138 (135-145) mmol/L Potassium 3.5 (3.5-5.1) mmol/L Chloride 101 (98-107) mmol/L Carbon Dioxide 37 H (22-30) mmol/L Anion Gap 4.6 L (5-15) MEQ/L BUN 18 (9-20) mg/dL Creatinine 0.93 (0.66-1.25) mg/dL Estimated GFR 79.5 ML/MIN Glucose 125 H (74-106) mg/dL Calcium 8.0 L (8.4-10.2) mg/dL Total Bilirubin 0.70 (0.2-1.3) mg/dL AST 21 (17-59) U/L ALT 18 (0-50) U/L Alkaline Phosphatase 74 (38-126) U/L Serum Total Protein 5.8 L (6.3-8.2) g/dL Albumin 2.6 L (3.5-5.0) g/dL Multi-Disciplinary Progress Notes: Multi-Disciplinary Progress Notes 06/27/24 10:51 Case Management Note by Keesha Pinedo [facility] HAS ACCEPTED BUT INSURANCE WILL REQUIRE A PRECERT BEFORE PATIENT CAN COME FOR STAY S/W PATIENT- HE CONTINUES TO BE AGREEABLE WITH PLAN TO TRANSITION TO REHAB PRIOR TO GOING HOME Initialized on 06/27/24 10:51 - END OF NOTE Assessment/Plan (1) Fracture of left femur Current Visit: Yes Status: Acute Assessment & Plan: - Ambulates with walker at baseline - unable to put weight on left leg, increased pain of Left hip and leg with any movement -CTA reviewed from 06/24/24 showing a fracture to the proximal aspect of the left femur involving greater trochanter - CT of the cervical spine negative for acute findings -CT head negative for acute findings -Hip xray with no bony or soft tissue abnormalities -Ortho consulted - no plans for surgical intervention - Narcotic pain meds - PT eval and treat -pending rehab placement -CMP/cbc reviewed 06/27: -Pain controlled with current pain medication regimen- meds reviewed and changed MS contin to home dosing -Continue IPPT - SNF pending Code(s): S72.92XA - UNSP FRACTURE OF LEFT FEMUR, INIT ENCNTR FOR CLOSED FRACTURE (2) Ground-level fall Current Visit: Yes Status: Acute Assessment & Plan: -see plan for fracture Code(s): W18.30XA - FALL ON SAME LEVEL, UNSPECIFIED, INITIAL ENCOUNTER (3) Left hip pain Current Visit: Yes Status: Acute Assessment & Plan: - Left hip XR reviewed- as stated above - CTA as stated above - plan stated above Code(s): M25.552 - PAIN IN LEFT HIP (4) Pain of left femur Current Visit: Yes Status: Acute Assessment & Plan: -see plan for fracture Code(s): M89.8X5 - OTHER SPECIFIED DISORDERS OF BONE, THIGH (5) Maxillary sinusitis Current Visit: Yes Status: Acute Assessment & Plan: - as seen on CT head - Amoxicillin given in ED - Pt denies any sinus complaints Code(s): 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 (6) BPH (benign prostatic hyperplasia) Current Visit: Yes Status: Chronic Assessment & Plan: - Continue Flomax Code(s): N40.0 - BENIGN PROSTATIC HYPERPLASIA WITHOUT LOWER URINRY TRACT SYMP (7) Chronic pain Current Visit: Yes Status: Chronic Assessment & Plan: - For OA- takes MS contin OP- continue - Narcan PRN resp depression Code(s): G89.29 - OTHER CHRONIC PAIN (8) Depression Current Visit: Yes Status: Chronic Assessment & Plan: - Continue home meds Code(s): F32.A - DEPRESSION, UNSPECIFIED (9) GERD (gastroesophageal reflux disease) Current Visit: Yes Status: Chronic Assessment & Plan: - Continue protonix Code(s): K21.9 - GASTRO-ESOPHAGEAL REFLUX DISEASE WITHOUT ESOPHAGITIS (10) HTN (hypertension) Current Visit: Yes Status: Chronic Assessment & Plan: - BP increased 2:2 pain - Monitor BP - Continue home meds - Hydralizine PRN Code(s): I10 - ESSENTIAL (PRIMARY) HYPERTENSION VTE: Eliquis PPI: Protonix Next of KIN: Spouse D/C plan: 1-2 days Code status: Full Code(s): S72.92XA - UNSP FRACTURE OF LEFT FEMUR, INIT ENCNTR FOR CLOSED FRACTURE (2) Ground-level fall Current Visit: Yes Status: Acute Code(s): W18.30XA - FALL ON SAME LEVEL, UNSPECIFIED, INITIAL ENCOUNTER (3) Left hip pain Current Visit: Yes Status: Acute Code(s): M25.552 - PAIN IN LEFT HIP (4) Pain of left femur Current Visit: Yes Status: Acute Code(s): M89.8X5 - OTHER SPECIFIED DISORDERS OF BONE, THIGH (5) Maxillary sinusitis Current Visit: Yes Status: Acute Code(s): 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
[2024-06-28 07:48] VITALS: BP 139/62; PULSE 63; TEMP 97.4; O2SAT 93
--- NOTE | 2024-06-28 08:52 | XRAY ---
Indication: Short of breath. Comparison: April 09, 2024 Portable chest remains inflated and clear. Heart not enlarged for AP portable technique. No new/acute abnormalities.
--- NOTE | 2024-06-28 10:26 | PCM.DS ---
Discharge Summary Date of Admission: 06/24/24 11:25 Admitting Physician: BRANDON SUN MD Consults: Consults on Case 06/24/24 14:45 Consult Ortho ROUTINE Primary Care Provider: MANJIT MALDONADO BRANDON Allergies Allergies No Known Allergies Allergy (Verified 06/23/24 17:12) Hospital Summary - Hospital Course Hospital Course: HPI: is a 88 year old male with history of hypertension, A-fib, COPD on 2 L nocturnal oxygen, CHF, chronic pain, and bladder cancer admitted 06/23/24 after after ground-level fall. Patient was getting up from his orthopedic chair or wearing socks when he slipped and fell to the ground, "bouncing on my head multiple times". No LOC. Denies nausea, focal weakness or numbness. Initially was evaluated in the ED and had no fractures, but upon attempting to discharge to home, he had difficulty with ambulation due to severe pain in his leg. At baseline, he walks with a rolling walker as needed, but currently is unable to put any weight onto his left leg. He takes chronic narcotic pain medication for pain but states he is normally able to walk. He is unable to place any weight on his left leg. Pain increased with turning or rotation of leg. He states pain is increased from left hip to knee with pain in upper leg and hip. He has no pain when not moving.No shortening or rotation of LLE. CT of the cervical spine negative for acute findings. CT head negative for acute findings. Hip xray with no bony or soft tissue abnormalities. CT A Lower ext demonstrating a fracture to the proximal aspect of the left femur involving greater trochanter. Ortho has been consulted with plans to treat conservatively with NWB/PT- no surgical intervention. Patient to discharge to SNF for rehab. Discharge Note New Diagnosis: Left femur fracture Latest Assessment & Plan (1) Fracture of left femur Current Visit: Yes Status: Acute Assessment & Plan: - Ambulates with walker at baseline - unable to put weight on left leg, increased pain of Left hip and leg with any movement -CTA reviewed from 06/24/24 showing a fracture to the proximal aspect of the left femur involving greater trochanter - CT of the cervical spine negative for acute findings -CT head negative for acute findings -Hip xray with no bony or soft tissue abnormalities -Ortho consulted - no plans for surgical intervention - Narcotic pain meds - PT eval and treat -pending rehab placement -CMP/cbc reviewed 06/27: -Pain controlled with current pain medication regimen- meds reviewed and changed MS contin to home dosing -Continue IPPT - SNF pending Code(s): S72.92XA - UNSP FRACTURE OF LEFT FEMUR, INIT ENCNTR FOR CLOSED FRACTURE (2) Ground-level fall Current Visit: Yes Status: Acute Assessment & Plan: -see plan for fracture Code(s): W18.30XA - FALL ON SAME LEVEL, UNSPECIFIED, INITIAL ENCOUNTER (3) Left hip pain Current Visit: Yes Status: Acute Assessment & Plan: - Left hip XR reviewed- as stated above - CTA as stated above - plan stated above Code(s): M25.552 - PAIN IN LEFT HIP (4) Pain of left femur Current Visit: Yes Status: Acute Assessment & Plan: -see plan for fracture Code(s): M89.8X5 - OTHER SPECIFIED DISORDERS OF BONE, THIGH (5) Maxillary sinusitis Current Visit: Yes Status: Acute Assessment & Plan: - as seen on CT head - Amoxicillin given in ED - Pt denies any sinus complaints Code(s): 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 (6) BPH (benign prostatic hyperplasia) Current Visit: Yes Status: Chronic Assessment & Plan: - Continue Flomax Code(s): N40.0 - BENIGN PROSTATIC HYPERPLASIA WITHOUT LOWER URINRY TRACT SYMP (7) Chronic pain Current Visit: Yes Status: Chronic Assessment & Plan: - For OA- takes MS contin OP- continue - Narcan PRN resp depression Code(s): G89.29 - OTHER CHRONIC PAIN (8) Depression Current Visit: Yes Status: Chronic Assessment & Plan: - Continue home meds Code(s): F32.A - DEPRESSION, UNSPECIFIED (9) GERD (gastroesophageal reflux disease) Current Visit: Yes Status: Chronic Assessment & Plan: - Continue protonix Code(s): K21.9 - GASTRO-ESOPHAGEAL REFLUX DISEASE WITHOUT ESOPHAGITIS (10) HTN (hypertension) Current Visit: Yes Status: Chronic Assessment & Plan: - BP increased 2:2 pain - Monitor BP - Continue home meds - Hydralizine PRN I spent 35 minutes [id number] with the patient on the day of discharge performing discharge exam, discussing hospital stay and discharge instructions with patient and caregivers, preparation of discharge records, prescriptions & referral forms and addressing any questions/concerns the patient had as document ed above. - Vitals & Intake/Output Vital Signs: Vital Signs Temperature 97.4 F 06/28/24 07:47 Pulse Rate 63 06/28/24 07:47 Respiratory Rate 16 06/28/24 07:47 Blood Pressure 139/62 06/28/24 07:47 O2 Sat by Pulse Oximetry 93 L 06/28/24 08:15 Intake & Output: Intake & Output 06/25/24 06/26/24 06/27/24 06/28/24 11:59 11:59 11:59 11:59 Intake Total 820 0441 244 5750 Output Total 1725 325 150 Balance 820 135 395 990 Weight 82.6 kg - Lab Result Diagrams: 06/28/24 04:42 06/28/24 04:42 Lab Results-Last 24 Hrs: Lab Results-Last 24 Hours 06/28/24 06/28/24 Range/Units 04:42 04:42 WBC 7.1 (4.23-9.07) x10^3/uL RBC 3.39 L (4.63-6.08) x10^6/uL Hgb 9.7 L (13.7-17.5) g/dL Hct 30.7 L (40.1-51.0) % MCV 90.6 (79.0-92.2) fL MCH 28.6 (25.7-32.2) pg MCHC 31.6 L (32.3-36.5) g/dL RDW 17.5 H (11.6-14.4) % Plt Count 209 (163-337) x10^3/uL MPV 9.4 (9.4-12.4) fL Gran % 56.7 (34.0-67.9) % Immature Gran % (Auto) 0.4 (0.001-0.429) % Nucleat RBC Rel Count 0.0 (0.00-0.2) % Eos # (Auto) 0.72 H (0.04-0.54) x10^3/uL Immature Gran # (Auto) 0.03 (0.001-0.031) x10^3u/L Absolute Lymphs (auto) 1.44 (1.32-3.57) x10^3/uL Absolute Monos (auto) 0.87 H (0.30-0.82) x10^3/uL Absolute Nucleated RBC 0.00 (0.00-0.012) x10^3u/L Lymphocytes % 20.3 L (21.8-53.1) % Monocytes % 12.3 H (5.3-12.2) % Eosinophils % 10.2 H (0.8-7.0) % Basophils % 0.1 L (0.2-1.2) % Absolute Granulocytes 4.01 (1.78-5.38) x10^3/uL Basophils # 0.01 (0.01-0.08) x10^3/uL Sodium 139 (135-145) mmol/L Potassium 3.5 (3.5-5.1) mmol/L Chloride 100 (98-107) mmol/L Carbon Dioxide 37 H (22-30) mmol/L Anion Gap 6.3 (5-15) MEQ/L BUN 18 (9-20) mg/dL Creatinine 0.85 (0.66-1.25) mg/dL Estimated GFR 84.1 ML/MIN Glucose 117 H (74-106) mg/dL Calcium 8.3 L (8.4-10.2) mg/dL Total Bilirubin 0.70 (0.2-1.3) mg/dL AST 18 (17-59) U/L ALT 16 (0-50) U/L Alkaline Phosphatase 78 (38-126) U/L Serum Total Protein 5.9 L (6.3-8.2) g/dL Albumin 2.6 L (3.5-5.0) g/dL - Radiology Exams Ordered Rad Exams-Entire Visit: Radiology Procedures Category Date Time Status CHEST 1 VIEW (PORTABLE) Routine Exams 06/28/24 07:19 Completed - Procedures and Test Procedures and Tests throughout Hospitalization: Therapy Orders & Screens 06/23/24 21:28 PT Eval & Treat ( Order) ONCE Reason for Eval:: Range of motion, transfer, left hip pain Diagnosis: Left hip intractable pain 06/23/24 22:33 Oxygen NASAL CANNULA 2 lpm Comment: Diagnosis: Left hip intractable pain 06/28/24 07:20 Incentive Spirometry UD Comment: Diagnosis: INTRACTABLE PAIN L HIP, FX L FEMUR Discharge Exam General Appearance: no apparent distress Neurologic Exam: alert, cooperative, confusion Eye Exam: PERRL Ears, Nose, Throat Exam: normal ENT inspection Neck Exam: normal inspection Respiratory Exam: normal breath sounds, lungs clear Cardiovascular Exam: regular rate/rhythm, normal heart sounds Gastrointestinal/Abdomen Exam: soft, normal bowel sounds Male Genitalia Exam: deferred Rectal Exam: deferred Back Exam: normal inspection Extremity Exam: normal inspection Skin Exam: normal color Wound Assessment: Skin/Wound Assessment Wound/Incision Assessment Start: 06/24/24 01:00 Text: Status: Active Freq: Q6H Protocol: Document 06/28/24 08:00 [facility] (Rec: 06/28/24 08:53 [facility] [id number]) Wound/Incision Assessment Medial Sacrum Wound Assessment Shift Assessment Wound Type Pressure Ulcer Wound Stage Stage II Drainage Amount None General Appearance Reddened Comment Stage II, open to air, barrier cream applied prn Wound Photo Photo Taken No Final Diagnosis/Problem List - Final Discharge Diagnosis/Problem (1) Fracture of left femur Current Visit: Yes Status: Acute Code(s): S72.92XA - UNSP FRACTURE OF LEFT FEMUR, INIT ENCNTR FOR CLOSED FRACTURE (2) Ground-level fall Current Visit: Yes Status: Acute Code(s): W18.30XA - FALL ON SAME LEVEL, UNSPECIFIED, INITIAL ENCOUNTER (3) Left hip pain Current Visit: Yes Status: Acute Code(s): M25.552 - PAIN IN LEFT HIP (4) Pain of left femur Current Visit: Yes Status: Acute Code(s): M89.8X5 - OTHER SPECIFIED DISORDERS OF BONE, THIGH (5) Maxillary sinusitis Current Visit: Yes Status: Acute Code(s): 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 - Discharge Disposition: DC TO ANY "OTHER" SENIOR CARE Condition: Stable Prescriptions: New Benzocaine/Menthol [Cepacol Sore Throat Lozenge] 15 mg PO PRN PRN lozenge PRN Reason: sore throat Docusate Sodium 100 mg [Docusate Sodium 100 MG] 100 mg PO QAM cap Acetaminophen 325 mg [Tylenol 325 mg] 650 mg PO Q4H PRN PRN tablet PRN Reason: Pain, Fever, Headache Cholecalciferol (Vitamin D3) [Vitamin D] 1,000 unit PO DAILY tablet Continue Multivitamin [Multi-Vitamin Daily] 1 tab PO DAILY Ferrous Sulfate 325 mg PO BID Olanzapine 5 mg [zyPREXA 5MG TABLET] 5 mg PO HS Dorzolamide HCl/Pf [Dorzolamide 2% Eye Drop] 1 drop OP BID Sertraline HCl 100 mg PO DAILY Apixaban [Eliquis 5 mg Tablet] 2.5 mg PO BID Furosemide 40 mg [Lasix 40 MG] 40 mg PO BID Clonidine HCl 0.1 mg [Clonidine 0.1 mg Tablet] 0.2 mg PO TID Potassium Chloride [Klor-Con 10] 20 meq PO DAILY Metoprolol Tartrate 50 mg [Lopressor 50 MG] 75 mg PO BID Tamsulosin HCl 0.4 mg [Flomax 0.4 MG] 0.4 mg PO HS Lisinopril 10 mg [Zestril 10 MG] 20 mg PO BID Magnesium Oxide 400 mg [Mag-Ox 400] 400 mg PO DAILY Timolol Maleate/Pf [Timolol Maleate 0.5% Eye Drop] 1 drop OP BID Naloxone HCl [Narcan] 4 mg IN UD Amlodipine Besylate [Norvasc] 5 mg PO DAILY PANTOPRAZOLE 40 mg Tablet [Protonix 40MG Tablet] 40 mg PO DAILY Cholecalciferol (Vitamin D3) [Vitamin D3] 25 mcg PO DAILY Morphine Sulfate [Morphine Sulfate ER] 30 mg PO HS 3 Days #3 tablet MDD 1 Morphine Sulfate [Morphine Sulfate ER] 45 mg PO DAILY 3 Days #3 tablet MDD 1 Discontinued Hydrocodone/Acetaminophen [Hydrocodone-Acetamin 10-325 mg] 1 tab PO Q4-6HPRN PRN MDD 4 PRN Reason: Pain Additional Instructions: SENIOR CARE ORDERS: ADMIT TO SENIOR CARE FACILITY CARE REGULAR DIET PT/OT EVAL AND TREAT WEIGHTBEARING TOLERATED OXYGEN AT 2L/NC SEE ATTACHED MED LIST Follow up with: MANJIT MALDONADO MD [Primary Care Provider] -
== END 2024-06-28 10:50 | DRG 534 ==
LOC: ED 16:59 → UNDOADMOB 21:11 → MED SURG 21:11 → OBSVTOIN 06-24 11:25 → MED SURG 06-26 11:50
PROVIDERS: ADMIT Internal Medicine; ATTEND Internal Medicine
DX: S72.92XA Unspecified fracture of left femur, initial encounter for closed fracture (principal); W18.30XA Fall on same level, unspecified, initial encounter; M25.552 Pain in left hip; M89.8X5 Other specified disorders of bone, thigh; J32.0 Chronic maxillary sinusitis; N40.0 Benign prostatic hyperplasia without lower urinary tract symptoms; G89.29 Other chronic pain; F32.A Depression, unspecified; K21.9 Gastro-esophageal reflux disease without esophagitis; L89.152 Pressure ulcer of sacral region, stage 2; I48.91 Unspecified atrial fibrillation; J44.9 Chronic obstructive pulmonary disease, unspecified; I11.0 Hypertensive heart disease with heart failure; I50.9 Heart failure, unspecified; E87.6 Hypokalemia; R32 Unspecified urinary incontinence; Z85.51 Personal history of malignant neoplasm of bladder; Z79.899 Other long term (current) drug therapy; Z79.01 Long term (current) use of anticoagulants
CPT/HCPCS: 36000; 36415; 70450; 71045; 72125; 73502; 73706; 80048; 80053; 81001; 83735; 84132; 85025; 85027; 93268; 94760; 97110; 97161; 97530; 99285; G0378; Q3014; J2270; J2405; A9270-GY

== ENCOUNTER 2024-07-01 14:34 | Observation (INO) | payer MEDICARE ==
--- NOTE | 2024-07-01 14:50 | ERPHSYRPT ---
- History of Present Illness Time Seen by Provider: 07/01/24 14:39 Source: patient Exam Limitations: no limitations Physician History: 88-year-old male resident of senior care with history of left hip replacement on Eliquis for paroxysmal atrial fibrillation, hypertension, hyperlipidemia, COPD is brought in the ER with complains of recurrent falls with the last 1 this morning where he possibly hit his head, it was unwitnessed and worsening confusion afterwards. Patient was recently transferred to senior care for rehab and his [place] was discontinued abruptly which senior care thinks could be the reason for his AMS as well. Patient is answering few questions, moving all 4 extremities, not in any apparent distress but definitely confused and history is limited. Allergies/Adverse Reactions: No Known Allergies Allergy (Verified 07/01/24 14:58) Home Medications: Ferrous Sulfate 325 mg PO BID 02/20/22 [History] Multivitamin [Multi-Vitamin Daily] 1 tab PO DAILY 02/20/22 [History] Olanzapine 5 mg [zyPREXA 5MG TABLET] 5 mg PO HS 02/20/22 [History] Dorzolamide HCl/Pf [Dorzolamide 2% Eye Drop] 1 drop OP BID 05/21/22 [History] Apixaban [Eliquis 5 mg Tablet] 2.5 mg PO BID 06/02/22 [History] Clonidine HCl 0.1 mg [Clonidine 0.1 mg Tablet] 0.2 mg PO TID 06/02/22 [History] Furosemide 40 mg [Lasix 40 MG] 40 mg PO BID 06/02/22 [History] Potassium Chloride [Klor-Con 10] 20 meq PO DAILY 06/02/22 [History] Sertraline HCl 100 mg PO QHS 06/02/22 [History] Tamsulosin HCl 0.4 mg [Flomax 0.4 MG] 0.4 mg PO HS 06/02/22 [History] Lisinopril 10 mg [Zestril 10 MG] 20 mg PO BID 10/30/22 [History] Magnesium Oxide 400 mg [Mag-Ox 400] 400 mg PO DAILY 12/02/22 [History] Timolol Maleate/Pf [Timolol Maleate 0.5% Eye Drop] 1 drop OP BID 12/03/22 [History] Naloxone HCl [Narcan] 4 mg IN UD 05/25/23 [History] PANTOPRAZOLE 40 mg Tablet [Protonix 40MG Tablet] 40 mg PO DAILY 07/01/23 [History] Dextromethorphan/Benzocaine [Cepacol Sore Throat-Cough Joycelyn] 1 lozenge PO Q4HPRN PRN 07/01/24 [History] Zinc Oxide Ointment 30 gm 1 each TOP BID 07/01/24 [History] Hx Tetanus, Diphtheria Vaccination/Date Given: No Hx Influenza Vaccination/Date Given: No Hx Pneumococcal Vaccination/Date Given: No Travel Risk - Emerging Infectious Disease Are you exhibiting symptoms associated with any current EIDs: Yes Symptoms: Shortness of Breath - Review of Systems All Other Systems: Unable due to condition - Past Medical History Pertinent Past Medical History: Yes Neurological History: Migraines ENT History: Cataracts, Glaucoma Cardiac History: Hypertension Respiratory History: COPD Endocrine Medical History: No Pertinent History Musculoskeletal History: Arthritis, Osteoarthritis GI Medical History: GERD History: Bladder Cancer Psycho-Social History: Depression Male Reproductive Disorders: No Pertinent History Other Medical History: bladder cancer 2012. home oxygen at bedtime - Past Surgical History Past Surgical History: Yes Neuro Surgical History: No Pertinent History Cardiac: No Pertinent History Respiratory: No Pertinent History Gastrointestinal: No Pertinent History Genitourinary: No Pertinent History Musculoskeletal: Joint Replacement, Orthopedic Surgery Male Surgical History: No Pertinent History Other Surgical History: Bilateral hip replacement, Bilateral shoulder replacement, bladder biopsy Significant Family History: no pertinent family hx - Social History Smoking Status: Never smoker Exposure to second hand smoke: No Drug Use: none Patient Lives Alone: No - Social Determinants of Health Will the patient participate in the screening: Yes Do you worry about a steady place to live?: No In the past 12 months,have you had to go without utilities?: No Transportation Issues: No Has anyone in your support network made you feel unsafe?: No Have you or anyone in your house had to go without enough: No - Nursing Vital Signs Nursing Vital Signs: Initial Vital Signs Temperature 97.3 F 07/01/24 14:35 Pulse Rate 97 H 07/01/24 14:35 Respiratory Rate 16 07/01/24 14:35 Blood Pressure 168/113 07/01/24 14:35 O2 Sat by Pulse Oximetry 95 07/01/24 14:35 Pain Scale Pain Intensity 4 - Physical Exam General Appearance: no apparent distress, alert Eye Exam: PERRL/EOMI Ears, Nose, Throat Exam: normal ENT inspection Neck Exam: normal inspection, non-tender, supple Respiratory Exam: normal breath sounds, lungs clear Cardiovascular Exam: regular rate/rhythm, normal heart sounds Gastrointestinal/Abdomen Exam: soft, normal bowel sounds, No tenderness Back Exam: normal inspection Extremity Exam: normal inspection, normal range of motion Neurologic Exam: alert, cooperative, ore digger II-XII nml as tested, sensation nml, No motor deficits Skin Exam: normal color SpO2 Interpretation: normal SpO2: 95 O2 Delivery: Room Air - Course EKG Interpreted by Me: RATE (106), Sinus Tach, NORMAL AXIS, NORMAL INTERVALS, Non-specific ST Changes Ordered Tests: Medication Summary Discontinued Medications Generic Name Dose Route Start Last Admin Trade Name Freq PRN Reason Stop Dose Admin Acetaminophen 975 mg 07/01/24 14:47 07/01/24 15:38 Acetaminophen 325 Mg Tablet PO 07/01/24 14:48 975 mg STAT ONE Administration Acetaminophen Confirm 07/01/24 15:37 Acetaminophen 325 Mg Tablet Administered 07/01/24 15:38 Dose 975 mg .ROUTE .STK-MED ONE Acetaminophen 650 mg 07/01/24 20:11 Acetaminophen 325 Mg Tablet PO 07/31/24 20:10 Q4H PRN PRN PAIN, FEVER, HEADACHE Hydrocodone Bitart/Acetaminophen 1 tab 07/01/24 20:26 07/02/24 11:39 Hydrocodone/Apap 5/325 1 Tab Tablet PO 07/06/24 20:25 1 tab Q4H PRN PRN Administration PAIN Hydrocodone Bitart/Acetaminophen 1 tablet 07/02/24 13:40 07/04/24 11:22 Hydrocodone/Acetamin 10-325 Mg Tablet PO 07/07/24 13:39 1 tablet Q4H PRN PRN Administration PAIN Hydrocodone Bitart/Acetaminophen 1 tab 07/02/24 13:55 07/02/24 13:58 Hydrocodone/Apap 5/325 1 Tab Tablet PO 07/02/24 13:56 1 tab ONCE ONE Administration Amlodipine Besylate 5 mg 07/02/24 10:00 07/02/24 10:21 Amlodipine Besylate 5 Mg Tablet PO 08/01/24 09:59 5 mg DAILY FERNANDO Administration Amlodipine Besylate 10 mg 07/03/24 10:00 07/04/24 09:03 Amlodipine Besylate 5 Mg Tablet PO 08/02/24 09:59 10 mg DAILY FERNANDO Administration Apixaban Confirm 07/01/24 22:31 Apixaban 2.5 Mg Tablet Administered 07/01/24 22:32 Dose 2.5 mg .ROUTE .STK-MED ONE Apixaban 2.5 mg 07/01/24 22:00 07/04/24 09:02 Apixaban 2.5 Mg Tablet PO 07/31/24 21:59 2.5 mg BID FERNANDO Administration Cholecalciferol 1,000 unit 07/02/24 10:00 07/04/24 09:03 Cholecalciferol (Vitamin D3) 1000 Unit Tablet PO 08/01/24 09:59 1,000 unit DAILY FERNANDO Administration Docusate Sodium 100 mg 07/02/24 10:00 07/04/24 09:02 Docusate Sodium 100 Mg Capsule PO 08/01/24 09:59 100 mg QAM FERNANDO Administration Ferrous Sulfate 325 mg 07/01/24 22:00 07/04/24 09:03 Ferrous Sulfate 325 Mg Tablet PO 07/31/24 21:59 325 mg BID FERNANDO Administration Fluconazole 200 mg 07/03/24 10:00 07/04/24 09:02 Fluconazole 100 Mg Tablet PO 08/02/24 09:59 200 mg DAILY FERNANDO Administration Furosemide 40 mg 07/01/24 22:00 07/02/24 03:16 Furosemide 40 Mg Tablet PO 07/31/24 21:59 Not Given BID FERNANDO Furosemide 40 mg 07/02/24 10:00 07/04/24 09:03 Furosemide 40 Mg Tablet PO 07/31/24 21:59 40 mg BID DIURETIC FERNANDO Administration Hydralazine HCl 5 mg 07/02/24 17:00 07/02/24 17:05 Hydralazine Hcl 20 Mg/Ml Vial IV 07/02/24 17:01 5 mg ONCE ONE Administration Hydralazine HCl 10 mg 07/03/24 13:22 07/03/24 16:18 Hydralazine Hcl 20 Mg/Ml Vial IV 08/02/24 13:21 10 mg Q4H PRN PRN Administration HYPERTENSION Ceftriaxone Sodium 1 gm in 100 mls @ 200 mls/hr 07/03/24 10:00 Rocephin 1 Gm / 100 Ml Nacl IV 08/02/24 09:59 Q24H10 FERNANDO Piperacillin Sod/Tazobactam 100 mls @ 200 mls/hr 07/02/24 18:00 07/04/24 11:25 Sod 3.375 gm/ Sodium Chloride IV 07/05/24 17:59 200 mls/hr Q6HT FERNANDO Administration Sodium Chloride 1,000 mls @ 50 mls/hr 07/03/24 09:15 07/04/24 08:43 Sodium Chloride 0.9% 1000 Ml IV 08/02/24 09:14 50 mls/hr .Q20H FERNANDO Administration Lisinopril 20 mg 07/01/24 22:00 07/01/24 23:17 Lisinopril 10 Mg Tablet PO 07/31/24 21:59 20 mg BID FERNANDO Administration Lisinopril Confirm 07/01/24 22:32 Lisinopril 20 Mg Tablet Administered 07/01/24 22:33 Dose 20 mg .ROUTE .STK-MED ONE Lisinopril 20 mg 07/02/24 10:00 07/04/24 09:04 Lisinopril 20 Mg Tablet PO 08/01/24 09:59 20 mg BID FERNANDO Administration Magnesium Oxide 400 mg 07/02/24 10:00 07/04/24 09:03 Magnesium Oxide 400 Mg Tablet PO 08/01/24 09:59 400 mg DAILY FERNANDO Administration Metoprolol Tartrate 75 mg 07/01/24 22:00 07/03/24 20:53 Metoprolol Tartrate 50 Mg Tablet PO 07/31/24 21:59 75 mg BID FERNANDO Administration Metoprolol Tartrate Confirm 07/01/24 22:31 Metoprolol Tartrate 25 Mg Tab Administered 07/01/24 22:32 Dose 25 mg .ROUTE .STK-MED ONE Metoprolol Tartrate 25 mg 07/03/24 22:40 07/03/24 22:59 Metoprolol Tartrate 25 Mg Tab PO 07/03/24 22:41 25 mg ONCE ONE Administration Metoprolol Tartrate 100 mg 07/04/24 10:00 07/04/24 09:03 Metoprolol Tartrate 50 Mg Tablet PO 08/03/24 09:59 100 mg BID FERNANDO Administration Miscellaneous Information 1 each 07/02/24 09:45 Medication Intervention 1 Each Each 08/01/24 09:44 .RN TO CHECK FERNANDO Multivitamins Therapeutic 1 tab 07/02/24 10:00 07/04/24 09:03 Multivitamins,Therapeutic 1 Tab Tab PO 08/01/24 09:59 1 tab DAILY FERNANDO Administration Non-Formulary Medication 1 drop 07/01/24 22:00 07/01/24 22:58 Dorzolamide Hcl/Pf [Dorzolamide 2% Eye Drop] OP 07/31/24 21:59 Not Given BID FERNANDO Non-Formulary Medication 1 drop 07/01/24 22:00 07/01/24 23:15 Timolol Maleate/Pf [Timolol Maleate 0.5% Eye Drop] OP 07/31/24 21:59 1 drop BID FERNANDO Administration Olanzapine 5 mg 07/03/24 22:00 07/03/24 20:53 Olanzapine 5 Mg Tab PO 08/02/24 21:59 5 mg HS FERNANDO Administration Pantoprazole Sodium 40 mg 07/02/24 10:00 07/04/24 09:03 Protonix (Pantoprazole) 40 Mg Tablet PO 08/01/24 09:59 40 mg DAILY FERNANDO Administration Potassium Bicarbonate 25 meq 07/04/24 08:00 07/04/24 14:48 Potassium Bicarbonate 25 Meq Tab PO 07/04/24 12:01 Not Given Q2H FERNANDO Potassium Bicarbonate 25 meq 07/04/24 15:00 07/04/24 14:48 Potassium Bicarbonate 25 Meq Tab PO 07/04/24 15:01 25 meq Q2H FERNANDO Administration Potassium Chloride 20 meq 07/02/24 10:00 07/04/24 09:04 Potassium Chloride Tab 10 Meq Tab PO 08/01/24 09:59 20 meq DAILY FERNANDO Administration Potassium Chloride 20 meq 07/02/24 11:00 07/02/24 18:02 Potassium Chloride Tab 10 Meq Tab PO 07/02/24 17:01 20 meq Q2H FERNANDO Administration Potassium Chloride 20 meq 07/03/24 08:00 07/03/24 14:22 Potassium Chloride Tab 10 Meq Tab PO 07/03/24 14:01 20 meq Q2H FERNANDO Administration Sertraline HCl 100 mg 07/02/24 10:00 Sertraline Hcl 50 Mg Tab PO 08/01/24 09:59 DAILY FERNANDO Sertraline HCl 50 mg 07/02/24 10:00 07/02/24 10:43 Sertraline Hcl 50 Mg Tab PO 08/01/24 09:59 Not Given DAILY FERNANDO Sertraline HCl 50 mg 07/02/24 22:00 07/03/24 20:53 Sertraline Hcl 50 Mg Tab PO 08/01/24 21:59 50 mg QHS FERNANDO Administration Tamsulosin HCl 0.4 mg 07/01/24 22:00 07/03/24 20:53 Tamsulosin Hcl 0.4 Mg Cap PO 07/31/24 21:59 0.4 mg HS FERNANDO Administration Throat Lozenges 15 mg 07/02/24 09:42 Benzocaine/Menthol 15 Mg Lozenge - Cepacol PO 08/01/24 09:41 Q4HPRN PRN sore throat Timolol Maleate Confirm 07/01/24 22:29 Timolol Maleate 0.5% 5 Ml Eye Drops Administered 07/01/24 22:30 Dose 5 ml OP .STK-MED ONE Timolol Maleate 0 ml 07/02/24 10:00 07/04/24 09:04 Timolol Maleate 0.5% 5 Ml Eye Drops OP 08/01/24 09:59 5 ml BID FERNANDO Administration Lab/Rad Data: Laboratory Result Diagrams 07/01/24 15:18 07/01/24 15:18 Laboratory Results 07/01/24 07/01/24 07/01/24 Range/Units 18:01 17:22 17:15 WBC (4.23-9.07) x10^3/uL RBC (4.63-6.08) x10^6/uL Hgb (13.7-17.5) g/dL Hct (40.1-51.0) % MCV (79.0-92.2) fL MCH (25.7-32.2) pg MCHC (32.3-36.5) g/dL RDW (11.6-14.4) % Plt Count (163-337) x10^3/uL MPV (9.4-12.4) fL Gran % (34.0-67.9) % Immature Gran % (Auto) (0.001-0.429) % Nucleat RBC Rel Count (0.00-0.2) % Eos # (Auto) (0.04-0.54) x10^3/uL Immature Gran # (Auto) (0.001-0.031) x10^3u/L Absolute Lymphs (auto) (1.32-3.57) x10^3/uL Absolute Monos (auto) (0.30-0.82) x10^3/uL Absolute Nucleated RBC (0.00-0.012) x10^3u/L Lymphocytes % (21.8-53.1) % Monocytes % (5.3-12.2) % Eosinophils % (0.8-7.0) % Basophils % (0.2-1.2) % Absolute Granulocytes (1.78-5.38) x10^3/uL Basophils # (0.01-0.08) x10^3/uL Sodium (135-145) mmol/L Potassium (3.5-5.1) mmol/L Chloride (98-107) mmol/L Carbon Dioxide (22-30) mmol/L Anion Gap (5-15) MEQ/L BUN (9-20) mg/dL Creatinine (0.66-1.25) mg/dL Estimated GFR ML/MIN Glucose (74-106) mg/dL POC Glucometer 136 H (74 to 106) mg/dL Lactic Acid 2.3 H (0.4-2.0) Calcium (8.4-10.2) mg/dL Total Bilirubin (0.2-1.3) mg/dL AST (17-59) U/L ALT (0-50) U/L Alkaline Phosphatase (38-126) U/L Troponin I 0.082 H* (0.000-0.033) ng/mL Serum Total Protein (6.3-8.2) g/dL Albumin (3.5-5.0) g/dL Urine Color (Yellow) Urine Appearance (Clear) Urine pH (4.6-8.0) Ur Specific Durbin (1.005-1.030) Urine Protein (Negative) Urine Glucose (UA) (Negative) mg/dL Urine Ketones (Negative) Urine Blood (Negative) Urine Nitrite (Negative) Urine Bilirubin (Negative) Urine Urobilinogen (0.2) mg/dL Ur Leukocyte Esterase (Negative) U Hyaline Cast (Auto) (0-2) /LPF Urine Microscopic RBC (0-5) /HPF Urine Microscopic WBC (0-5) /HPF Ur Epithelial Cells (None Seen) /HPF Urine Bacteria (None Seen) /HPF Urine Culture Reflexed (NO) Slides for Path Review 07/01/24 07/01/24 07/01/24 Range/Units 15:35 15:18 15:18 WBC (4.23-9.07) x10^3/uL RBC (4.63-6.08) x10^6/uL Hgb (13.7-17.5) g/dL Hct (40.1-51.0) % MCV (79.0-92.2) fL MCH (25.7-32.2) pg MCHC (32.3-36.5) g/dL RDW (11.6-14.4) % Plt Count (163-337) x10^3/uL MPV (9.4-12.4) fL Gran % (34.0-67.9) % Immature Gran % (Auto) (0.001-0.429) % Nucleat RBC Rel Count (0.00-0.2) % Eos # (Auto) (0.04-0.54) x10^3/uL Immature Gran # (Auto) (0.001-0.031) x10^3u/L Absolute Lymphs (auto) (1.32-3.57) x10^3/uL Absolute Monos (auto) (0.30-0.82) x10^3/uL Absolute Nucleated RBC (0.00-0.012) x10^3u/L Lymphocytes % (21.8-53.1) % Monocytes % (5.3-12.2) % Eosinophils % (0.8-7.0) % Basophils % (0.2-1.2) % Absolute Granulocytes (1.78-5.38) x10^3/uL Basophils # (0.01-0.08) x10^3/uL Sodium 139 (135-145) mmol/L Potassium 3.3 L (3.5-5.1) mmol/L Chloride 101 (98-107) mmol/L Carbon Dioxide 29 (22-30) mmol/L Anion Gap 12.1 (5-15) MEQ/L BUN 17 (9-20) mg/dL Creatinine 0.93 (0.66-1.25) mg/dL Estimated GFR 79.5 ML/MIN Glucose 145 H (74-106) mg/dL POC Glucometer (74 to 106) mg/dL Lactic Acid (0.4-2.0) Calcium 10.1 (8.4-10.2) mg/dL Total Bilirubin 1.70 H (0.2-1.3) mg/dL AST 34 (17-59) U/L ALT 28 (0-50) U/L Alkaline Phosphatase 122 (38-126) U/L Troponin I 0.068 H* (0.000-0.033) ng/mL Serum Total Protein 7.7 (6.3-8.2) g/dL Albumin 3.7 (3.5-5.0) g/dL Urine Color Yellow (Yellow) Urine Appearance Cloudy A (Clear) Urine pH 8.0 (4.6-8.0) Ur Specific Durbin 1.015 (1.005-1.030) Urine Protein 30 (Negative) Urine Glucose (UA) Negative (Negative) mg/dL Urine Ketones Negative (Negative) Urine Blood Negative (Negative) Urine Nitrite Negative (Negative) Urine Bilirubin Negative (Negative) Urine Urobilinogen 2.0 A (0.2) mg/dL Ur Leukocyte Esterase Trace A (Negative) U Hyaline Cast (Auto) NONE SEEN (0-2) /LPF Urine Microscopic RBC 3-5 (0-5) /HPF Urine Microscopic WBC 0-2 (0-5) /HPF Ur Epithelial Cells None Seen (None Seen) /HPF Urine Bacteria None Seen (None Seen) /HPF Urine Culture Reflexed ORDERED SEPARATELY (NO) Slides for Path Review 07/01/24 07/01/24 Range/Units 15:18 14:47 WBC 20.1 H (4.23-9.07) x10^3/uL RBC 4.66 (4.63-6.08) x10^6/uL Hgb 13.1 L (13.7-17.5) g/dL Hct 40.9 (40.1-51.0) % MCV 87.8 (79.0-92.2) fL MCH 28.1 (25.7-32.2) pg MCHC 32.0 L (32.3-36.5) g/dL RDW 16.7 H (11.6-14.4) % Plt Count 462 H (163-337) x10^3/uL MPV 8.8 L (9.4-12.4) fL Gran % 83.0 H (34.0-67.9) % Immature Gran % (Auto) 0.5 H (0.001-0.429) % Nucleat RBC Rel Count 0.0 (0.00-0.2) % Eos # (Auto) 0.09 (0.04-0.54) x10^3/uL Immature Gran # (Auto) 0.11 H (0.001-0.031) x10^3u/L Absolute Lymphs (auto) 1.40 (1.32-3.57) x10^3/uL Absolute Monos (auto) 1.81 H (0.30-0.82) x10^3/uL Absolute Nucleated RBC 0.00 (0.00-0.012) x10^3u/L Lymphocytes % 7.0 L (21.8-53.1) % Monocytes % 9.0 (5.3-12.2) % Eosinophils % 0.4 L (0.8-7.0) % Basophils % 0.1 L (0.2-1.2) % Absolute Granulocytes 16.71 H (1.78-5.38) x10^3/uL Basophils # 0.02 (0.01-0.08) x10^3/uL Sodium (135-145) mmol/L Potassium (3.5-5.1) mmol/L Chloride (98-107) mmol/L Carbon Dioxide (22-30) mmol/L Anion Gap (5-15) MEQ/L BUN (9-20) mg/dL Creatinine (0.66-1.25) mg/dL Estimated GFR ML/MIN Glucose (74-106) mg/dL POC Glucometer (74 to 106) mg/dL Lactic Acid 2.7 H (0.4-2.0) Calcium (8.4-10.2) mg/dL Total Bilirubin (0.2-1.3) mg/dL AST (17-59) U/L ALT (0-50) U/L Alkaline Phosphatase (38-126) U/L Troponin I (0.000-0.033) ng/mL Serum Total Protein (6.3-8.2) g/dL Albumin (3.5-5.0) g/dL Urine Color (Yellow) Urine Appearance (Clear) Urine pH (4.6-8.0) Ur Specific [place] (1.005-1.030) Urine Protein (Negative) Urine Glucose (UA) (Negative) mg/dL Urine Ketones (Negative) Urine Blood (Negative) Urine Nitrite (Negative) Urine Bilirubin (Negative) Urine Urobilinogen (0.2) mg/dL Ur Leukocyte Esterase (Negative) U Hyaline Cast (Auto) (0-2) /LPF Urine Microscopic RBC (0-5) /HPF Urine Microscopic WBC (0-5) /HPF Ur Epithelial Cells (None Seen) /HPF Urine Bacteria (None Seen) /HPF Urine Culture Reflexed (NO) Slides for Path Review YES - Progress Progress: unchanged Progress Note: 07/01/24 17:31 88-year-old who was recently admitted for fall with fracture of proximal femur with a history of hardware/hip replacement in the past and was decided to manage conservatively, history of paroxysmal atrial fibrillation on Eliquis is evaluated again for repeated falls and confusion since yesterday and worsening since morning. Patient had abrupt discontinuation of [place]'s which she was taking at hospital. Patient is awake alert and not fully oriented, answering few questions, moving all 4 extremities. I have obtained CT head cervical spine and chest which are negative for any acute findings. Has a white count of 20, chemistries with a lactate of 2.7 and troponin 0.06 with a EKG not showing acute ST elevation. Patient does not seem to be in any pain. Patient has no UTI. I do not know the exact cause of elevated white count but this could be reactionary, blood cultures are pending. Discussed with : Patient is being admitted for observation. 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 - Discussion of managment Care discussed with:: hospitalist Reviewed:: Test results Agreed on:: Treatment plan, place in obs Will see patient: in hospital - Diagnostic Testing Diagnostic test were ordered, analyzed, and reviewed by me: Yes Radiological Interpretation: Reviewed by me, Teleradiologist Report - Risk of complications The pt has a high risk of morbidity or mortality based on: Decision regarding hospitilization or escalation of hosp level of care - Departure Departure Disposition: Transfer Clinical Impression: AMS (altered mental status), Frequent falls, Leukocytosis (leucocytosis) Condition: Stable Critical Care Time: No
[2024-07-01 15:29] LABS: Absolute Neutrophil Ct (ANC) 16.71 x10^3/uL (1.78-5.38); BASOPHIL % 0.1 % (0.2-1.2); Basophil (Absolute #) 0.02 x10^3/uL (0.01-0.08); Eosinophil % 0.4 % (0.8-7.0); Eosinophil (Absolute #) 0.09 x10^3/uL (0.04-0.54); Hematocrit 40.9 % (40.1-51.0); Hemoglobin 13.1 g/dL (13.7-17.5); IMMATURE GRAN # 0.11 x10^3u/L (0.001-0.031); IMMATURE GRAN % 0.5 % (0.001-0.429); Mean Cell Volume 87.8 fL (79.0-92.2); Mean Corpuscular Hemoglobin 28.1 pg (25.7-32.2); Mean Platelet Volume 8.8 fL (9.4-12.4); Monocyte (Absolute #) 1.81 x10^3/uL (0.30-0.82); Platelet Count 462 x10^3/uL (163-337); Red Blood Count 4.66 x10^6/uL (4.63-6.08); Red Cell Distribution Width 16.7 % (11.6-14.4); White Blood Count 20.1 x10^3/uL (4.23-9.07)
[2024-07-01] MEDS ORDERED: TYLENOL 325 MG ONE (15:37)
[2024-07-01] MEDS: TYLENOL 325 MG PO ONE (15:38)
[2024-07-01 15:45] LABS: ALBUMIN 3.7 g/dL (3.5-5.0); ANION GAP 12.1 MEQ/L (5-15); BILIRUBIN,TOTAL 1.7 mg/dL (0.2-1.3); Calcium 10.1 mg/dL (8.4-10.2); Creatinine 1 0.93 mg/dL (0.66-1.25); EST GLOMERULAR FILTRATION RATE 79.5 ML/MIN; Potassium 3.3 mmol/L (3.5-5.1); Total Protein 7.7 g/dL (6.3-8.2)
--- NOTE | 2024-07-01 16:22 | XRAY ---
CLINICAL HISTORY: fall, ams COMPARISON: none. TECHNIQUE: Axial non-contrast CT scan of the brain was performed from the skull base to the high parietal region. One of the following dose reduction techniques were utilized for this exam: Automated exposure control, adjustment of the mA and/or kV according to patient size, use of iterative reconstruction. FINDINGS: Brain Parenchyma: Normal attenuation of the cerebral hemispheres, cerebellum, and brainstem. No evidence of acute infarct, hemorrhage, or mass effect. Ventricular System: Moderate dilatation of the supratentorial ventricular system. 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 Subarachnoid Spaces: Accentuated cortical sulci & extra-axial CSF spaces. No evidence of subarachnoid hemorrhage or extra-axial fluid collections. Cerebellum and Brainstem: Normal size and signal. No masses, lesions, or areas of abnormal signal. Orbits: Normal appearance of the globes, optic nerves, and extraocular muscles. No evidence of orbital masses or abnormal signal. Sinuses: Mucosal thickening of the right maxillary sinus with internal calcific densities possibly fungal colonization. Mastoid Air Cells: Clear mastoid air cells. No evidence of mastoiditis. Skull and Meninges: Normal skull morphology. IMPRESSION: 1. No acute intracranial abnormality. 2. No bobbi fractures. 3. 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 4. Involutional brain changes. Electronically Signed by: Olivia Dave MD. (07/01/2024 16:17:56 EST)
--- NOTE | 2024-07-01 16:26 | XRAY ---
CLINICAL HISTORY: fall, ams COMPARISON: None. TECHNIQUE: Contiguous axial CT images of the chest were acquired without administration of intravenous contrast. Coronal and sagittal reconstructions were obtained. One of the following dose reduction techniques were utilized for this exam: Automated exposure control, adjustment of the mA and/or kV according to patient size, use of iterative reconstruction. DLP: 392.78 mGy-cm. FINDINGS: Lungs: No pulmonary contusions or pneumothorax. Bilateral basal pulmonary short atelectatic bands. Otherwise, The lung parenchyma is clear with no evidence of consolidation, collapse, or focal lesions. No pulmonary nodules or masses are identified. No evidence of interstitial lung disease or emphysema. No pleural effusion or pleural thickening. Mediastinum: The mediastinum is normal in size and contour. No mediastinal mass or abnormal lymphadenopathy. Posterior mediastinal calcific foci are noted possibly ananya. The heart size is within normal limits. Atheromatous calcification of the aorta. Ectasia of the ascending aorta. Hilar Structures: The hilar structures appear normal without enlargement or abnormality. Trachea and Main Bronchi: The trachea and main bronchi are patent without evidence of obstruction or abnormality. Chest Wall: The chest wall is unremarkable with no evidence of soft tissue or bony abnormalities. Upper Abdomen: Right renal calyceal stones. Bones: Healed fractures of right 5th down to 8th ribs (old fractures). Bilateral shoulder hemiarthroplasty. IMPRESSION: 1. No pulmonary contusions or pneumothorax. 2. Healed fractures of right 5th down to 8th ribs (old fractures). Electronically Signed by: Olivia Dave MD. (07/01/2024 16:22:45 EST)
[2024-07-01 16:27] LABS: Appearance Cloudy (Clear); Bacteria None Seen /HPF (None Seen); Bilirubin Negative (Negative); Blood Negative (Negative); Epithelial Cells None Seen /HPF (None Seen); Glucose, Urine Negative (Negative); Hyaline Casts NONE SEEN /LPF (0-2); Ketones Negative (Negative); Leukocyte Esterase Trace (Negative); Nitrite Negative (Negative); Protein,Urine Dip 30 (Negative); Specific Gravity 1.015 (1.005-1.030); WBC 0-2 /HPF (0-5)
--- NOTE | 2024-07-01 16:28 | XRAY ---
CLINICAL HISTORY: fall, ams COMPARISON: No previous studies are available for comparison. TECHNIQUE: A CT scan of the cervical spine was performed without the administration of intravenous contrast. Contiguous axial images were obtained from the skull base to the upper thoracic spine. Coronal and sagittal reformatted images were also reviewed. One of the following dose-reduction techniques was utilized for this exam. Automated exposure control, adjustment of the mA and/or kV according to patient size, and use of iterative reconstruction. FINDINGS: Vertebrae: Straightening of the cervical spine possibly due to muscular spasm. No evidence of acute fracture or dislocation. Moderate anterolateral osteophytosis of the cervical vertebral end plates. Osteopenia. No signs of lytic or sclerotic lesions. Normal configuration of the posterior elements. Intervertebral Discs: Narrowed cervical disc spaces. C5-C6 & C6-C7 disc /osteophyte complex seen indenting the theca with bilateral neural foraminal narrowing. No calcifications or ossifications were noted within the discs. Facet Joints: Bilateral C3-C4 & C4-C5 facetal arthropathy. Prevertebral Soft Tissues: The prevertebral soft tissues are normal in thickness without evidence of mass or abnormal fluid collection. Additional Findings: Atlantodental osteoarthritic changes No other significant findings are noted in the visualized soft tissue structures or bony elements. IMPRESSION: 1. No evidence of acute fracture, or dislocation. 2. 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 Electronically Signed by: Olivia Dave MD. (07/01/2024 16:25:16 EST)
[2024-07-01 17:04] LABS: Slide Review 1 YES
--- NOTE | 2024-07-01 20:06 | PCM.HP ---
History of Present Illness - Chief Complaint Chief Complaint: Altered mental status, recurrent falls, elevated troponin History of Present Illness: is a 88 year old male with history of left hip replacement, afib on eliquis, COPD, HTN, HLD who was brought into the ED with recurrent falls, altered mental status and confusion. Patient was recently transferred to [facility] for [facility]hab and his Leo was discontinued abruptly which correction thinks could be the reason for his AMS as well. CTH and CT chest in the ED were unremarkable. UA was also unremarkable. Pt had a mild elevated trop with no chest pain or EKG changes. No fever, chills, nausea, vomiting or diarrhea. - Review of Systems Constitutional: No Fever, No Chills Eyes: No Symptoms Ears, Nose, & Throat: No Symptoms Respiratory: No Cough, No Short Of Breath Cardiac: No Chest Pain, No Edema, No Syncope Abdominal/Gastrointestinal: No Abdominal Pain, No Nausea, No Vomiting, No Diarrhea Genitourinary Symptoms: No Dysuria Musculoskeletal: No Back Pain, No Neck Pain Skin: No Rash Neurological: No Dizziness, No Focal Weakness, No Sensory Changes Psychological: No Symptoms Endocrine: No Symptoms Hematologic/Lymphatic: No Symptoms Immunological/Allergic: No Symptoms Medications & Allergies Home Medications: Home Medication List Ferrous Sulfate 325 mg PO BID 02/20/22 [History Confirmed 07/01/24] Multivitamin [Multi-Vitamin Daily] 1 tab PO DAILY 02/20/22 [History Confirmed 07/01/24] Olanzapine 5 mg [zyPREXA 5MG TABLET] 5 mg PO HS 02/20/22 [History Confirmed 07/01/24] Dorzolamide HCl/Pf [Dorzolamide 2% Eye Drop] 1 drop OP BID 05/21/22 [History Confirmed 07/01/24] Apixaban [Eliquis 5 mg Tablet] 2.5 mg PO BID 06/02/22 [History Confirmed 07/01/24] Clonidine HCl 0.1 mg [Clonidine 0.1 mg Tablet] 0.2 mg PO TID 06/02/22 [History Confirmed 07/01/24] Furosemide 40 mg [Lasix 40 MG] 40 mg PO BID 06/02/22 [History Confirmed 07/01/24] Metoprolol Tartrate 50 mg [Lopressor 50 MG] 75 mg PO BID 06/02/22 [History Confirmed 07/01/24] Potassium Chloride [Klor-Con 10] 20 meq PO DAILY 06/02/22 [History Confirmed 07/01/24] Sertraline HCl 100 mg PO DAILY 06/02/22 [History Confirmed 07/01/24] Tamsulosin HCl 0.4 mg [Flomax 0.4 MG] 0.4 mg PO HS 06/02/22 [History Confirmed 07/01/24] Lisinopril 10 mg [Zestril 10 MG] 20 mg PO BID 10/30/22 [History Confirmed 07/01/24] Magnesium Oxide 400 mg [Mag-Ox 400] 400 mg PO DAILY 12/02/22 [History Confirmed 07/01/24] Timolol Maleate/Pf [Timolol Maleate 0.5% Eye Drop] 1 drop OP BID 12/03/22 [History Confirmed 07/01/24] Naloxone HCl [Narcan] 4 mg IN UD 05/25/23 [History Confirmed 07/01/24] Amlodipine Besylate [Norvasc] 5 mg PO DAILY 07/01/23 [History Confirmed 07/01/24] PANTOPRAZOLE 40 mg Tablet [Protonix 40MG Tablet] 40 mg PO DAILY 07/01/23 [History Confirmed 07/01/24] Acetaminophen 325 mg [Tylenol 325 mg] 650 mg PO Q4H PRN PRN tablet 06/28/24 [Rx Confirmed 07/01/24] Cholecalciferol (Vitamin D3) [Vitamin D] 1,000 unit PO DAILY tablet 06/28/24 [Rx Confirmed 07/01/24] Docusate Sodium 100 mg [Docusate Sodium 100 MG] 100 mg PO QAM cap 06/28/24 [Rx Confirmed 07/01/24] Morphine Sulfate [Morphine Sulfate ER] 45 mg PO DAILY 3 Days #3 tablet MDD 1 06/28/24 [Rx Confirmed 07/01/24] Dextromethorphan/Benzocaine [Cepacol Sore Throat-Cough Joycelyn] 1 lozenge PO Q4HPRN PRN 07/01/24 [History Confirmed 07/01/24] Morphine Sulfate [Morphine Sulfate ER] 30 mg PO DAILY MDD 1 07/01/24 [History Confirmed 07/01/24] Zinc Oxide Ointment 30 gm See Rx Instructions .ROUTE .COMPLEX 07/01/24 [History Confirmed 07/01/24] Allergies/Adverse Reactions: Allergies Allergy/AdvReac Type Severity Reaction Status Date / Time No Known Allergies Allergy Verified 07/01/24 14:58 - Past Medical History Past Medical History: Yes Neurological History: Migraines ENT History: Cataracts, Glaucoma Cardiac History: Hypertension Respiratory History: COPD Endocrine Medical History: No Pertinent History Musculoskelatal History: Arthritis, Osteoarthritis GI Medical History: GERD History: Bladder Cancer Pyscho-Social History: Depression Male Reproductive Disorders: No Pertinent History Comment: bladder cancer 2011. home oxygen at bedtime - Past Surgical History Past Surgical History: Yes Neuro Surgical History: No Pertinent History Cardiac History: No Pertinent History Respiratory Surgery: No Pertinent History GI Surgical History: No Pertinent History Genitourinary Surgical Hx: No Pertinent History Musculskeletal Surgical Hx: Joint Replacement, Orthopedic Surgery Male Surgical History: No Pertinent History Other Surgical History: Bilateral hip replacement, Bilateral shoulder replacement, bladder biopsy Significant Family History: no pertinent family hx - Social History Smoking Status: Never smoker Exposure to second hand smoke: No Alcohol: None Drug Use: none - Social Determinants of Health Will the patient participate in the screening: Yes Do you worry about a steady place to live?: No In the past 12 months,have you had to go without utilities?: No Have you or anyone in your house had to go without enough: No Transportation Issues: No Has anyone in your support network made you feel unsafe?: No Does the patient want assistance with any of the above?: No - Physical Exam Vital Signs: Vital Signs - 24 hr Temp Pulse Resp BP BP Pulse Ox 07/01/24 19:15 72 179/114 97 07/01/24 19:07 193/121 07/01/24 19:00 192/157 07/01/24 18:46 173/99 07/01/24 18:30 107 H 9 L 07/01/24 18:20 117 H 18 91 L 07/01/24 18:10 123 H 16 92 L 07/01/24 18:00 109 H 19 92 L 07/01/24 17:50 98 H 15 92 L 07/01/24 17:48 99 H 21 91 L 07/01/24 17:35 95 07/01/24 17:31 126 H 15 165/141 85 L 07/01/24 17:16 100 H 18 147/111 07/01/24 17:01 84 22 179/148 92 L 07/01/24 16:46 157/97 95 07/01/24 16:32 115 H 18 173/128 93 L 07/01/24 16:15 104 H 26 H 184/99 91 L 07/01/24 16:04 104 H 24 171/83 92 L 07/01/24 16:02 119 H 21 215/130 93 L 07/01/24 16:01 110 H 26 H 07/01/24 16:00 91 H 27 H 94 L 07/01/24 15:50 110 H 25 H 07/01/24 15:48 104 H 21 93 L 07/01/24 15:31 115 H 25 H 102/71 95 07/01/24 15:16 106 H 26 H 175/129 94 L 07/01/24 15:14 93 H 24 94 L 07/01/24 14:47 166/111 07/01/24 14:39 102 H 24 168/113 95 07/01/24 14:35 97.3 F 97 H 16 168/113 95 General Appearance: no apparent distress, alert Neurologic Exam: alert, oriented x 3, cooperative, normal mood/affect, nml cerebellar function, nml station & gait, sensation nml, No motor deficits Eye Exam: PERRL/EOMI, eyes nml inspection Ears, Nose, Throat Exam: normal ENT inspection, TMs normal, pharynx normal, moist mucous membranes Neck Exam: normal inspection, non-tender, supple, full range of motion Respiratory Exam: normal breath sounds, lungs clear, No respiratory distress Cardiovascular Exam: regular rate/rhythm, normal heart sounds, normal peripheral pulses Gastrointestinal/Abdomen Exam: soft, normal bowel sounds, No tenderness, No mass Back Exam: normal inspection, normal range of motion, No CVA tenderness, No vertebral tenderness Extremity Exam: normal inspection, normal range of motion, pelvis stable Skin Exam: normal color, warm, dry, No rash Lymphatic Exam: No adenopathy Results - Labs Lab/Micro Results: Lab Results-Last 24 Hours 07/01/24 07/01/24 07/01/24 Range/Units 14:47 15:18 15:18 WBC 20.1 H (4.23-9.07) x10^3/uL RBC 4.66 (4.63-6.08) x10^6/uL Hgb 13.1 L (13.7-17.5) g/dL Hct 40.9 (40.1-51.0) % MCV 87.8 (79.0-92.2) fL MCH 28.1 (25.7-32.2) pg MCHC 32.0 L (32.3-36.5) g/dL RDW 16.7 H (11.6-14.4) % Plt Count 462 H (163-337) x10^3/uL MPV 8.8 L (9.4-12.4) fL Gran % 83.0 H (34.0-67.9) % Immature Gran % (Auto) 0.5 H (0.001-0.429) % Nucleat RBC Rel Count 0.0 (0.00-0.2) % Eos # (Auto) 0.09 (0.04-0.54) x10^3/uL Immature Gran # (Auto) 0.11 H (0.001-0.031) x10^3u/L Absolute Lymphs (auto) 1.40 (1.32-3.57) x10^3/uL Absolute Monos (auto) 1.81 H (0.30-0.82) x10^3/uL Absolute Nucleated RBC 0.00 (0.00-0.012) x10^3u/L Lymphocytes % 7.0 L (21.8-53.1) % Monocytes % 9.0 (5.3-12.2) % Eosinophils % 0.4 L (0.8-7.0) % Basophils % 0.1 L (0.2-1.2) % Absolute Granulocytes 16.71 H (1.78-5.38) x10^3/uL Basophils # 0.02 (0.01-0.08) x10^3/uL Sodium 139 (135-145) mmol/L Potassium 3.3 L (3.5-5.1) mmol/L Chloride 101 (98-107) mmol/L Carbon Dioxide 29 (22-30) mmol/L Anion Gap 12.1 (5-15) MEQ/L BUN 17 (9-20) mg/dL Creatinine 0.93 (0.66-1.25) mg/dL Estimated GFR 79.5 ML/MIN Glucose 145 H (74-106) mg/dL POC Glucometer (74 to 106) mg/dL Lactic Acid 2.7 H (0.4-2.0) Calcium 10.1 (8.4-10.2) mg/dL Total Bilirubin 1.70 H (0.2-1.3) mg/dL AST 34 (17-59) U/L ALT 28 (0-50) U/L Alkaline Phosphatase 122 (38-126) U/L Troponin I (0.000-0.033) ng/mL Serum Total Protein 7.7 (6.3-8.2) g/dL Albumin 3.7 (3.5-5.0) g/dL Urine Color (Yellow) Urine Appearance (Clear) Urine pH (4.6-8.0) Ur Specific Ponce (1.005-1.030) Urine Protein (Negative) Urine Glucose (UA) (Negative) mg/dL Urine Ketones (Negative) Urine Blood (Negative) Urine Nitrite (Negative) Urine Bilirubin (Negative) Urine Urobilinogen (0.2) mg/dL Ur Leukocyte Esterase (Negative) U Hyaline Cast (Auto) (0-2) /LPF Urine Microscopic RBC (0-5) /HPF Urine Microscopic WBC (0-5) /HPF Ur Epithelial Cells (None Seen) /HPF Urine Bacteria (None Seen) /HPF Urine Culture Reflexed (NO) Slides for Path Review YES 07/01/24 07/01/24 07/01/24 Range/Units 15:18 15:35 17:15 WBC (4.23-9.07) x10^3/uL RBC (4.63-6.08) x10^6/uL Hgb (13.7-17.5) g/dL Hct (40.1-51.0) % MCV (79.0-92.2) fL MCH (25.7-32.2) pg MCHC (32.3-36.5) g/dL RDW (11.6-14.4) % Plt Count (163-337) x10^3/uL MPV (9.4-12.4) fL Gran % (34.0-67.9) % Immature Gran % (Auto) (0.001-0.429) % Nucleat RBC Rel Count (0.00-0.2) % Eos # (Auto) (0.04-0.54) x10^3/uL Immature Gran # (Auto) (0.001-0.031) x10^3u/L Absolute Lymphs (auto) (1.32-3.57) x10^3/uL Absolute Monos (auto) (0.30-0.82) x10^3/uL Absolute Nucleated RBC (0.00-0.012) x10^3u/L Lymphocytes % (21.8-53.1) % Monocytes % (5.3-12.2) % Eosinophils % (0.8-7.0) % Basophils % (0.2-1.2) % Absolute Granulocytes (1.78-5.38) x10^3/uL Basophils # (0.01-0.08) x10^3/uL Sodium (135-145) mmol/L Potassium (3.5-5.1) mmol/L Chloride (98-107) mmol/L Carbon Dioxide (22-30) mmol/L Anion Gap (5-15) MEQ/L BUN (9-20) mg/dL Creatinine (0.66-1.25) mg/dL Estimated GFR ML/MIN Glucose (74-106) mg/dL POC Glucometer 136 H (74 to 106) mg/dL Lactic Acid (0.4-2.0) Calcium (8.4-10.2) mg/dL Total Bilirubin (0.2-1.3) mg/dL AST (17-59) U/L ALT (0-50) U/L Alkaline Phosphatase (38-126) U/L Troponin I 0.068 H* (0.000-0.033) ng/mL Serum Total Protein (6.3-8.2) g/dL Albumin (3.5-5.0) g/dL Urine Color Yellow (Yellow) Urine Appearance Cloudy A (Clear) Urine pH 8.0 (4.6-8.0) Ur Specific Ponce 1.015 (1.005-1.030) Urine Protein 30 (Negative) Urine Glucose (UA) Negative (Negative) mg/dL Urine Ketones Negative (Negative) Urine Blood Negative (Negative) Urine Nitrite Negative (Negative) Urine Bilirubin Negative (Negative) Urine Urobilinogen 2.0 A (0.2) mg/dL Ur Leukocyte Esterase Trace A (Negative) U Hyaline Cast (Auto) NONE SEEN (0-2) /LPF Urine Microscopic RBC 3-5 (0-5) /HPF Urine Microscopic WBC 0-2 (0-5) /HPF Ur Epithelial Cells None Seen (None Seen) /HPF Urine Bacteria None Seen (None Seen) /HPF Urine Culture Reflexed ORDERED SEPARATELY (NO) Slides for Path Review 07/01/24 07/01/24 Range/Units 17:22 18:01 WBC (4.23-9.07) x10^3/uL RBC (4.63-6.08) x10^6/uL Hgb (13.7-17.5) g/dL Hct (40.1-51.0) % MCV (79.0-92.2) fL MCH (25.7-32.2) pg MCHC (32.3-36.5) g/dL RDW (11.6-14.4) % Plt Count (163-337) x10^3/uL MPV (9.4-12.4) fL Gran % (34.0-67.9) % Immature Gran % (Auto) (0.001-0.429) % Nucleat RBC Rel Count (0.00-0.2) % Eos # (Auto) (0.04-0.54) x10^3/uL Immature Gran # (Auto) (0.001-0.031) x10^3u/L Absolute Lymphs (auto) (1.32-3.57) x10^3/uL Absolute Monos (auto) (0.30-0.82) x10^3/uL Absolute Nucleated RBC (0.00-0.012) x10^3u/L Lymphocytes % (21.8-53.1) % Monocytes % (5.3-12.2) % Eosinophils % (0.8-7.0) % Basophils % (0.2-1.2) % Absolute Granulocytes (1.78-5.38) x10^3/uL Basophils # (0.01-0.08) x10^3/uL Sodium (135-145) mmol/L Potassium (3.5-5.1) mmol/L Chloride (98-107) mmol/L Carbon Dioxide (22-30) mmol/L Anion Gap (5-15) MEQ/L BUN (9-20) mg/dL Creatinine (0.66-1.25) mg/dL Estimated GFR ML/MIN Glucose (74-106) mg/dL POC Glucometer (74 to 106) mg/dL Lactic Acid 2.3 H (0.4-2.0) Calcium (8.4-10.2) mg/dL Total Bilirubin (0.2-1.3) mg/dL AST (17-59) U/L ALT (0-50) U/L Alkaline Phosphatase (38-126) U/L Troponin I 0.082 H* (0.000-0.033) ng/mL Serum Total Protein (6.3-8.2) g/dL Albumin (3.5-5.0) g/dL Urine Color (Yellow) Urine Appearance (Clear) Urine pH (4.6-8.0) Ur Specific Ponce (1.005-1.030) Urine Protein (Negative) Urine Glucose (UA) (Negative) mg/dL Urine Ketones (Negative) Urine Blood (Negative) Urine Nitrite (Negative) Urine Bilirubin (Negative) Urine Urobilinogen (0.2) mg/dL Ur Leukocyte Esterase (Negative) U Hyaline Cast (Auto) (0-2) /LPF Urine Microscopic RBC (0-5) /HPF Urine Microscopic WBC (0-5) /HPF Ur Epithelial Cells (None Seen) /HPF Urine Bacteria (None Seen) /HPF Urine Culture Reflexed (NO) Slides for Path Review - Radiology Impressions Radiology Exams & Impressions: Radiology Procedures Category Date Time Status CERVICAL SPINE WO CONTRAST [CT] Stat Exams 07/01/24 14:47 Completed CHEST WITHOUT CONTRAST [CT] Stat Exams 07/01/24 14:47 Completed HEAD WITHOUT CONTRAST [CT] Stat Exams 07/01/24 14:47 Completed - Other Procedures and Tests Respiratory Therapy 07/01/24 19:44 Oxygen Nasal Cannula 2 lpm Assessment/Plan (1) AMS (altered mental status) Current Visit: Yes Status: Acute Assessment & Plan: 1. Likely multifactorial, abrupt d/c of hydrocodone that pt has been on for >5 years vs infectious (less likely). CT chest and UA unremarkable. 2. Will hold morphine, zyprexa overnight. It is not clear why the hydrocodone was abrupted stopped. is very worried as pt has chronic hip pain. Will restart the HC at 5-325 q4prn (originally pt was taking 10-325). Code(s): R41.82 - ALTERED MENTAL STATUS, UNSPECIFIED (2) Frequent falls Current Visit: Yes Status: Acute Assessment & Plan: 1. Etiology likely multifactorial including polypharmacy. No infectious source identifed as CT chest and UA are unremarkable. CTH was also unremarkable. 2. Fall precautions Code(s): R29.6 - REPEATED FALLS (3) Leukocytosis Current Visit: Yes Status: Acute Assessment & Plan: Likely reactive. Given no source of infection at this time, will hold off on abx. Code(s): D72.829 - ELEVATED WHITE BLOOD CELL COUNT, UNSPECIFIED Telemedicine Encounter - Telemedicine Encounter Telemedicine Encounter: "The entirety of this encounter was performed via Telemedicine" This visit was performed using real-time audio and video connection between my location and thepatients locationwith the assistance of a surrogateat the patients location. Written or verbal consent was obtained from the patient/guardian to perform this visit [facility] technology. Any patient questions regarding the telemedicine interaction were answered.
[2024-07-01] MEDS ORDERED: DEXTROMETHORPHAN PO PRN (20:11)
[2024-07-01] MEDS ORDERED: TYLENOL 325 MG PO PRN (20:11)
[2024-07-01] MEDS ORDERED: BENZOCAINE PO PRN (20:11)
[2024-07-01] MEDS ORDERED: [UNRECOGNIZED DRUG - OTHER] PO PRN (20:11)
[2024-07-01] MEDS: NORCO 5/325 MG PO PRN (20:45)
[2024-07-01] MEDS ORDERED: NON-FORMULARY ITEM (Apixaban*** [Eliquis 5 Mg Tablet***] 5 MG Tablet) PO SCH (22:00)
[2024-07-01] MEDS ORDERED: TIMOPTIC 0.5% 5 ML OPHTHALMIC OP ONE (22:29)
[2024-07-01] MEDS ORDERED: Lopressor 25MG Tab ONE (22:31)
[2024-07-01] MEDS ORDERED: ELIQUIS 2.5 MG TABLET ONE (22:31)
[2024-07-01] MEDS ORDERED: Zestril 20 MG ONE (22:32)
[2024-07-01] MEDS: Lopressor 50 MG PO SCH (22:39)
[2024-07-01] MEDS: FEOSOL 325 MG PO SCH (22:40)
[2024-07-01] MEDS: NON-FORMULARY ITEM (Dorzolamide Hcl/Pf [Dorzolamide 2% Eye Drop] 10 ML Drops) OP SCH (22:58)
[2024-07-01] MEDS: [UNRECOGNIZED DRUG - OTHER] OP SCH (23:15)
[2024-07-01] MEDS: ELIQUIS 2.5 MG TABLET PO SCH (23:16)
[2024-07-01] MEDS: Flomax 0.4 MG PO SCH (23:16)
[2024-07-01] MEDS: Zestril 10 MG PO SCH (23:17)
[2024-07-02] MEDS: Lasix 40 MG PO SCH ×2 (03:16→10:21)
--- NOTE | 2024-07-02 05:13 | PCM.NOTE ---
Date and Time: 07/02/24 0500 Subjective Assessment: is a 88 year old male with history of hypertension, A-fib, COPD on 2 L nocturnal oxygen, CHF, chronic pain, and bladder cancer admitted 07/02/24 after the half-way he resides at noted that the patient had altered mental mental status. The patient was recently admitted at [facility] from 06/23/24-06/28/24 for a fracture to the proximal aspect of the left femur involving greater trochanter which did not require surgical intervention. Patient was medically stable and discharged to the half-way for rehab. Patient was discharged to the half-way on both morphine sulfate ER and morphine sulfate IR for pain control. The half-way felt the patient's increased confusion could be partly due to his [place] not being continued. CT chest, and CT cervical spine with no acute findings. CT head does show mucosal thickening of the right maxillary sinus with internal calcific densities possibly fungal colonization. On arrival the patient was hypertensive and tachycardic. Lab work up notable for leukocytosis with WBC at 20.1, hypokalemia with potassium at 3.3, lactic acid at 2.3, and uptrending troponins. 07/02/24: Met with patient bedside. Alert to self only this morning. Endorses pain to left hip. WBC count elevated with no source of infection identified. He does show mucosal thickening of the right maxillary sinus with internal calcific densities possibly fungal colonization on his CT head. Plan for CT abd/pelvis and initiation of abx/diflucan. - Review of Systems Constitutional: No Symptoms Eyes: No Symptoms Ears, Nose, & Throat: No Symptoms Respiratory: No Symptoms Cardiac: No Symptoms Abdominal/Gastrointestinal: No Symptoms Genitourinary Symptoms: No Symptoms Musculoskeletal: Back Pain, Joint Pain (left hip) Neurological: Other (confusion) Psychological: Memory Loss Endocrine: No Symptoms Hematologic/Lymphatic: No Symptoms Immunological/Allergic: No Symptoms Objective Exam General Appearance: no apparent distress Neurologic Exam: alert, cooperative, other (orientated to self) Skin Exam: normal color Eye Exam: PERRL Ears, Nose, Throat Exam: normal ENT inspection Neck Exam: normal inspection Respiratory Exam: normal breath sounds, lungs clear Cardiovascular Exam: regular rate/rhythm, normal heart sounds Gastrointestinal/Abdomen Exam: soft, normal bowel sounds Extremity Exam: normal inspection Back Exam: normal inspection Male Genitalia Exam: deferred Rectal Exam: deferred Objective Data Vital Signs: Vital Signs - 24 hr Temp Pulse Resp BP BP Pulse Ox 07/01/24 23:57 99.2 F 87 22 197/94 93 L 07/01/24 22:32 92 L 07/01/24 20:00 97.5 F 87 22 165/87 92 L 07/01/24 19:46 97.5 F 87 22 165/87 92 L 07/01/24 19:15 72 179/114 97 07/01/24 19:07 193/121 07/01/24 19:00 192/157 07/01/24 18:46 173/99 07/01/24 18:30 107 H 9 L 07/01/24 18:20 117 H 18 91 L 07/01/24 18:10 123 H 16 92 L 07/01/24 18:00 109 H 19 92 L 07/01/24 17:50 98 H 15 92 L 07/01/24 17:48 99 H 21 91 L 07/01/24 17:35 95 07/01/24 17:31 126 H 15 165/141 85 L 07/01/24 17:16 100 H 18 147/111 07/01/24 17:01 84 22 179/148 92 L 07/01/24 16:46 157/97 95 07/01/24 16:32 115 H 18 173/128 93 L 07/01/24 16:15 104 H 26 H 184/99 91 L 07/01/24 16:04 104 H 24 171/83 92 L 07/01/24 16:02 119 H 21 215/130 93 L 07/01/24 16:01 110 H 26 H 07/01/24 16:00 91 H 27 H 94 L 07/01/24 15:50 110 H 25 H 07/01/24 15:48 104 H 21 93 L 07/01/24 15:31 115 H 25 H 102/71 95 07/01/24 15:16 106 H 26 H 175/129 94 L 07/01/24 15:14 93 H 24 94 L 07/01/24 14:47 166/111 07/01/24 14:39 102 H 24 168/113 95 07/01/24 14:35 97.3 F 97 H 16 168/113 95 Pain Assessment - Last Documented Pain Intensity 6 Pain Scale Used 0-10 Pain Scale Intake and Output: Intake & Output 06/29/24 06/30/24 07/01/24 07/02/24 11:59 11:59 11:59 11:59 Intake Total 100 Balance 100 Weight 73.5 kg Lab Results: Lab Results-Last 24 Hours 07/01/24 07/01/24 07/01/24 Range/Units 14:47 15:18 15:18 WBC 20.1 H (4.23-9.07) x10^3/uL RBC 4.66 (4.63-6.08) x10^6/uL Hgb 13.1 L (13.7-17.5) g/dL Hct 40.9 (40.1-51.0) % MCV 87.8 (79.0-92.2) fL MCH 28.1 (25.7-32.2) pg MCHC 32.0 L (32.3-36.5) g/dL RDW 16.7 H (11.6-14.4) % Plt Count 462 H (163-337) x10^3/uL MPV 8.8 L (9.4-12.4) fL Gran % 83.0 H (34.0-67.9) % Immature Gran % (Auto) 0.5 H (0.001-0.429) % Nucleat RBC Rel Count 0.0 (0.00-0.2) % Eos # (Auto) 0.09 (0.04-0.54) x10^3/uL Immature Gran # (Auto) 0.11 H (0.001-0.031) x10^3u/L Absolute Lymphs (auto) 1.40 (1.32-3.57) x10^3/uL Absolute Monos (auto) 1.81 H (0.30-0.82) x10^3/uL Absolute Nucleated RBC 0.00 (0.00-0.012) x10^3u/L Lymphocytes % 7.0 L (21.8-53.1) % Monocytes % 9.0 (5.3-12.2) % Eosinophils % 0.4 L (0.8-7.0) % Basophils % 0.1 L (0.2-1.2) % Absolute Granulocytes 16.71 H (1.78-5.38) x10^3/uL Basophils # 0.02 (0.01-0.08) x10^3/uL Sodium 139 (135-145) mmol/L Potassium 3.3 L (3.5-5.1) mmol/L Chloride 101 (98-107) mmol/L Carbon Dioxide 29 (22-30) mmol/L Anion Gap 12.1 (5-15) MEQ/L BUN 17 (9-20) mg/dL Creatinine 0.93 (0.66-1.25) mg/dL Estimated GFR 79.5 ML/MIN Glucose 145 H (74-106) mg/dL POC Glucometer (74 to 106) mg/dL Lactic Acid 2.7 H (0.4-2.0) Calcium 10.1 (8.4-10.2) mg/dL Total Bilirubin 1.70 H (0.2-1.3) mg/dL AST 34 (17-59) U/L ALT 28 (0-50) U/L Alkaline Phosphatase 122 (38-126) U/L Troponin I (0.000-0.033) ng/mL Serum Total Protein 7.7 (6.3-8.2) g/dL Albumin 3.7 (3.5-5.0) g/dL Urine Color (Yellow) Urine Appearance (Clear) Urine pH (4.6-8.0) Ur Specific Amalia (1.005-1.030) Urine Protein (Negative) Urine Glucose (UA) (Negative) mg/dL Urine Ketones (Negative) Urine Blood (Negative) Urine Nitrite (Negative) Urine Bilirubin (Negative) Urine Urobilinogen (0.2) mg/dL Ur Leukocyte Esterase (Negative) U Hyaline Cast (Auto) (0-2) /LPF Urine Microscopic RBC (0-5) /HPF Urine Microscopic WBC (0-5) /HPF Ur Epithelial Cells (None Seen) /HPF Urine Bacteria (None Seen) /HPF Urine Culture Reflexed (NO) Slides for Path Review YES 07/01/24 07/01/24 07/01/24 Range/Units 15:18 15:35 17:15 WBC (4.23-9.07) x10^3/uL RBC (4.63-6.08) x10^6/uL Hgb (13.7-17.5) g/dL Hct (40.1-51.0) % MCV (79.0-92.2) fL MCH (25.7-32.2) pg MCHC (32.3-36.5) g/dL RDW (11.6-14.4) % Plt Count (163-337) x10^3/uL MPV (9.4-12.4) fL Gran % (34.0-67.9) % Immature Gran % (Auto) (0.001-0.429) % Nucleat RBC Rel Count (0.00-0.2) % Eos # (Auto) (0.04-0.54) x10^3/uL Immature Gran # (Auto) (0.001-0.031) x10^3u/L Absolute Lymphs (auto) (1.32-3.57) x10^3/uL Absolute Monos (auto) (0.30-0.82) x10^3/uL Absolute Nucleated RBC (0.00-0.012) x10^3u/L Lymphocytes % (21.8-53.1) % Monocytes % (5.3-12.2) % Eosinophils % (0.8-7.0) % Basophils % (0.2-1.2) % Absolute Granulocytes (1.78-5.38) x10^3/uL Basophils # (0.01-0.08) x10^3/uL Sodium (135-145) mmol/L Potassium (3.5-5.1) mmol/L Chloride (98-107) mmol/L Carbon Dioxide (22-30) mmol/L Anion Gap (5-15) MEQ/L BUN (9-20) mg/dL Creatinine (0.66-1.25) mg/dL Estimated GFR ML/MIN Glucose (74-106) mg/dL POC Glucometer 136 H (74 to 106) mg/dL Lactic Acid (0.4-2.0) Calcium (8.4-10.2) mg/dL Total Bilirubin (0.2-1.3) mg/dL AST (17-59) U/L ALT (0-50) U/L Alkaline Phosphatase (38-126) U/L Troponin I 0.068 H* (0.000-0.033) ng/mL Serum Total Protein (6.3-8.2) g/dL Albumin (3.5-5.0) g/dL Urine Color Yellow (Yellow) Urine Appearance Cloudy A (Clear) Urine pH 8.0 (4.6-8.0) Ur Specific Amalia 1.015 (1.005-1.030) Urine Protein 30 (Negative) Urine Glucose (UA) Negative (Negative) mg/dL Urine Ketones Negative (Negative) Urine Blood Negative (Negative) Urine Nitrite Negative (Negative) Urine Bilirubin Negative (Negative) Urine Urobilinogen 2.0 A (0.2) mg/dL Ur Leukocyte Esterase Trace A (Negative) U Hyaline Cast (Auto) NONE SEEN (0-2) /LPF Urine Microscopic RBC 3-5 (0-5) /HPF Urine Microscopic WBC 0-2 (0-5) /HPF Ur Epithelial Cells None Seen (None Seen) /HPF Urine Bacteria None Seen (None Seen) /HPF Urine Culture Reflexed ORDERED SEPARATELY (NO) Slides for Path Review 07/01/24 07/01/24 07/01/24 Range/Units 17:22 18:01 22:15 WBC (4.23-9.07) x10^3/uL RBC (4.63-6.08) x10^6/uL Hgb (13.7-17.5) g/dL Hct (40.1-51.0) % MCV (79.0-92.2) fL MCH (25.7-32.2) pg MCHC (32.3-36.5) g/dL RDW (11.6-14.4) % Plt Count (163-337) x10^3/uL MPV (9.4-12.4) fL Gran % (34.0-67.9) % Immature Gran % (Auto) (0.001-0.429) % Nucleat RBC Rel Count (0.00-0.2) % Eos # (Auto) (0.04-0.54) x10^3/uL Immature Gran # (Auto) (0.001-0.031) x10^3u/L Absolute Lymphs (auto) (1.32-3.57) x10^3/uL Absolute Monos (auto) (0.30-0.82) x10^3/uL Absolute Nucleated RBC (0.00-0.012) x10^3u/L Lymphocytes % (21.8-53.1) % Monocytes % (5.3-12.2) % Eosinophils % (0.8-7.0) % Basophils % (0.2-1.2) % Absolute Granulocytes (1.78-5.38) x10^3/uL Basophils # (0.01-0.08) x10^3/uL Sodium (135-145) mmol/L Potassium (3.5-5.1) mmol/L Chloride (98-107) mmol/L Carbon Dioxide (22-30) mmol/L Anion Gap (5-15) MEQ/L BUN (9-20) mg/dL Creatinine (0.66-1.25) mg/dL Estimated GFR ML/MIN Glucose (74-106) mg/dL POC Glucometer (74 to 106) mg/dL Lactic Acid 2.3 H (0.4-2.0) Calcium (8.4-10.2) mg/dL Total Bilirubin (0.2-1.3) mg/dL AST (17-59) U/L ALT (0-50) U/L Alkaline Phosphatase (38-126) U/L Troponin I 0.082 H* 0.090 H* (0.000-0.033) ng/mL Serum Total Protein (6.3-8.2) g/dL Albumin (3.5-5.0) g/dL Urine Color (Yellow) Urine Appearance (Clear) Urine pH (4.6-8.0) Ur Specific Amalia (1.005-1.030) Urine Protein (Negative) Urine Glucose (UA) (Negative) mg/dL Urine Ketones (Negative) Urine Blood (Negative) Urine Nitrite (Negative) Urine Bilirubin (Negative) Urine Urobilinogen (0.2) mg/dL Ur Leukocyte Esterase (Negative) U Hyaline Cast (Auto) (0-2) /LPF Urine Microscopic RBC (0-5) /HPF Urine Microscopic WBC (0-5) /HPF Ur Epithelial Cells (None Seen) /HPF Urine Bacteria (None Seen) /HPF Urine Culture Reflexed (NO) Slides for Path Review Radiology Exams: Radiology Procedures Category Date Time Status CERVICAL SPINE WO CONTRAST [CT] Stat Exams 07/01/24 14:47 Completed CHEST WITHOUT CONTRAST [CT] Stat Exams 07/01/24 14:47 Completed HEAD WITHOUT CONTRAST [CT] Stat Exams 07/01/24 14:47 Completed Assessment/Plan (1) AMS (altered mental status) Current Visit: Yes Status: Acute Assessment & Plan: -CT head reviewed with no acute findings -Chest CT/UA negative -Reviewed TSH, B12, folate, ammonia -unremarkable -UDS pending -Orientation protocol -COVID/FLU/RSV negative Code(s): R41.82 - ALTERED MENTAL STATUS, UNSPECIFIED (2) Leukocytosis Current Visit: Yes Status: Acute Assessment & Plan: -?infective vs reactive -CT head with mucosal thickening of the right maxillary sinus with internal calcific densities possibly fungal colonization - will start diflucan/ceftriaxone -trend CBC -Procal reviewed with mild elevation -lactic reviewed and now wnl -blood and urine cultures pending -UA and Chest CT reviewed with no acute findings -Order CT abdomen/pelvis Code(s): D72.829 - ELEVATED WHITE BLOOD CELL COUNT, UNSPECIFIED (3) Elevated troponin Current Visit: Yes Status: Acute Assessment & Plan: -uptrending -No chest pain -EKG Code(s): R79.89 - OTHER SPECIFIED ABNORMAL FINDINGS OF BLOOD CHEMISTRY (4) COPD (chronic obstructive pulmonary disease) Current Visit: Yes Status: Acute Assessment & Plan: -Baseline 2L - supplemental oxygen with goal spo2 88-92% -RT eval -Neb/INH -CT chest with no acute findings (5) HTN (hypertension) Current Visit: Yes Status: Acute Assessment & Plan: -- BP increased 2:2 pain - Monitor BP - Continue home meds - Hydralizine PRN Code(s): I10 - ESSENTIAL (PRIMARY) HYPERTENSION (6) History of bladder cancer Current Visit: Yes Status: Acute Assessment & Plan: -noted, adds complexity Code(s): Z85.51 - PERSONAL HISTORY OF MALIGNANT NEOPLASM OF BLADDER (7) Hypokalemia Current Visit: Yes Status: Acute Assessment & Plan: -Potassium level reviewed at 3.2, will replenish per potassium protocol Code(s): E87.6 - HYPOKALEMIA (8) Femur fracture, left Current Visit: Yes Status: Acute Assessment & Plan: -Documentation from recent hospital stay at [facility] reviewed, non-surgical intervention and NWB to the left ext. Patient in SNF for rehab -Pain control Code(s): S72.92XA - UNSP FRACTURE OF LEFT FEMUR, INIT ENCNTR FOR CLOSED FRACTURE (9) Frequent falls Current Visit: Yes Status: Acute Assessment & Plan: -Etiology likely multifactorial including polypharmacy. No infectious source identifed as CT chest and UA are unremarkable. CTH was also unremarkable. 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
[2024-07-02 05:17] LABS: Absolute Neutrophil Ct (ANC) 15.07 x10^3/uL (1.78-5.38); BASOPHIL % 0.1 % (0.2-1.2); Basophil (Absolute #) 0.01 x10^3/uL (0.01-0.08); Eosinophil % 0.1 % (0.8-7.0); Eosinophil (Absolute #) 0.01 x10^3/uL (0.04-0.54); Hematocrit 40.5 % (40.1-51.0); Hemoglobin 13.1 g/dL (13.7-17.5); IMMATURE GRAN # 0.08 x10^3u/L (0.001-0.031); IMMATURE GRAN % 0.4 % (0.001-0.429); Lymphocyte (Absolute #) 1.56 x10^3/uL (1.32-3.57); Lymphocytes % 8.4 % (21.8-53.1); Mean Cell Volume 87.9 fL (79.0-92.2); Mean Corpuscular Hemoglobin 28.4 pg (25.7-32.2); Mean Corpuscular Hgb Concent. 32.3 g/dL (32.3-36.5); Mean Platelet Volume 9.1 fL (9.4-12.4); Monocyte (Absolute #) 1.75 x10^3/uL (0.30-0.82); Monocytes % 9.5 % (5.3-12.2); Neutrophil % 81.5 % (34.0-67.9); Platelet Count 469 x10^3/uL (163-337); Red Blood Count 4.61 x10^6/uL (4.63-6.08); Red Cell Distribution Width 17.2 % (11.6-14.4); White Blood Count 18.5 x10^3/uL (4.23-9.07)
[2024-07-02 06:10] LABS: ANION GAP 12.5 MEQ/L (5-15); Calcium 10.2 mg/dL (8.4-10.2); Creatinine 1 0.86 mg/dL (0.66-1.25); EST GLOMERULAR FILTRATION RATE 83.8 ML/MIN; MAGNESIUM 2.2 mg/dL (1.6-2.3); PREALBUMIN 9.72 mg/dL (17.6-36.0); Potassium 3.2 mmol/L (3.5-5.1); TSH, 3RD Generation 0.618 mIU/L (0.470-4.680)
[2024-07-02 08:41] LABS: Folate (Folic Acid) > 20.0 ng/mL (2.76 - >20); Vitamin B12 544 pg/mL (239-931)
[2024-07-02] MEDS ORDERED: CEPACOL SORE THROAT LOZENGE PO PRN (09:42)
[2024-07-02] MEDS ORDERED: MEDICATION INTERVENTION MC SCH (09:45)
[2024-07-02 09:50] LABS: Slide Review 1 YES
[2024-07-02 09:56] LABS: INFLUENZA A NEGATIVE (NEGATIVE); INFLUENZA B NEGATIVE (NEGATIVE); RESPIRATORY SYNCTIAL VIRUS NEGATIVE (NEGATIVE); SARS-CoV-2 Xpert Express NEGATIVE (NEGATIVE)
[2024-07-02] MEDS ORDERED: NON-FORMULARY ITEM (Sertraline Hcl [Sertraline Hcl] 100 MG Tablet) PO SCH (10:00)
[2024-07-02] MEDS ORDERED: NON-FORMULARY ITEM (Multivitamin [Multi-Vitamin Daily] 1 EACH Tablet) PO SCH (10:00)
[2024-07-02] MEDS ORDERED: ZOLOFT 50 MG TABLET PO SCH (10:00)
[2024-07-02] MEDS: Docusate Sodium 100 MG PO SCH (10:17)
[2024-07-02] MEDS: Protonix 40MG Tablet PO SCH (10:21)
[2024-07-02] MEDS: Zestril 20 MG PO SCH (10:21)
[2024-07-02] MEDS: Klor Con PO SCH ×2 (10:21→11:39)
[2024-07-02] MEDS: NORVASC 5 MG PO SCH (10:21)
[2024-07-02] MEDS: MAG-OX 400 PO SCH (10:21)
[2024-07-02] MEDS: THERAGRAN MULTIVITAMIN PO SCH (10:21)
[2024-07-02] MEDS: VITAMIN D PO SCH (10:21)
[2024-07-02] MEDS: TIMOPTIC 0.5% 5 ML OPHTHALMIC OP SCH (10:22)
[2024-07-02] MEDS: ZOLOFT 50 MG TABLET PO SCH ×2 (10:43→23:02)
--- NOTE | 2024-07-02 11:23 | XRAY ---
CLINICAL HISTORY: leukocytosis COMPARISON: compared with 06/24/2024 TECHNIQUE: Contrast-enhanced CT of the abdomen and pelvis was performed, with the following protocol: axial images with, and reconstructed coronal and sagittal images. Intravenous contrast was administered. One of the following dose reduction techniques was utilized for this exam: Automated exposure control, adjustment of the mA and/or kV according to patient size, and use of iterative reconstruction. FINDINGS: Abdomen: Liver: Normal in size, shape, and density. No focal lesions, cysts, or masses were identified. Hepatic vasculature and biliary ducts are unremarkable. fine nodular soft tissue thickening at the posterior inferior aspect of the liver likely peritoneal thickening with 9 mm thickness Gallbladder and Biliary System: The gallbladder is normal in size and shape. No wall thickening, pericholecystic fluid, or gallstones were identified. The common bile duct is normal in caliber without dilation. Pancreas: Pancreatic head, body, and tail are visualized and appear normal in size and density. No pancreatic masses or calcifications were noted. The pancreatic duct is not dilated. Spleen: Normal in size, shape, and density. No splenic lesions or masses were identified. Kidneys and Adrenal Glands: Both kidneys are normal in size, shape, and position. Cortical thickness is within normal limits. right mid calyceal small stone about 6x4 mm with 838 HU. mild backpressure changes of right kidney with dilated ureter till distal end that masked by prosthesis artifact. left lower pole simple renal cyst about 3x2.5 cm of thin wall and clear contents. Adrenal glands are unremarkable with no evidence of masses or hyperplasia. Pelvis: Urinary Bladder: Possible small left VUJ calculus, masked by the prosthesis artifacts Normal in contour and wall thickness. No intraluminal lesions were identified. bladder apex masked as well as trigones by prosthesis artifact. Prostate: Normal in size and contour with fine concretions. No focal lesions or masses were identified. Seminal Vesicles: Normal in size and appearance. No abnormalities noted. Rectum and Sigmoid Colon: Normal wall thickness and no evidence of mass. Peritoneal and Retroperitoneal Structures: No free fluid or abnormal fluid collections were identified within the abdomen or pelvis. No lymphadenopathy was noted. right fatty inguinal hernia. Bowel: The visualized bowel loops are normal in caliber and appearance. No evidence of bowel obstruction or wall thickening. Bones and Soft Tissues: marked decreased bone density with advanced lumbar spondylosis. bilateral hips prosthesis with left greater trochanter displaced fracture. calcified atheromatous plaques of aorta and its branches. IMPRESSION: 1. Right small renal mid-calyceal stone about 6x4 mm (838 HU). 2. Possible small left VUJ calculus, masked by the prothesis artifacts 3. Right mild [id number] with distal ureter masked by prosthesis artifact for US assessment. 4. Left simple renal cyst (BOSNAK I) 5. Right fatty inguinal hernia. 6. Left greater trochanter displaced fracture 7. Marked diffuse osteopenia 8. Lumbar spondylosis. 9. Calcified atheromatous palques of aorta and its branches for cardiac consultation. 10. Fine nodular soft tissue thickening at the posterior inferior aspect of the liver likely peritoneal thickening 9 mm thickness for clinical co-relation. Electronically Signed by: Olivia Dave MD. (07/02/2024 11:19:14 EST)
[2024-07-02] MEDS: NORCO 5/325 MG PO ONE (13:58)
[2024-07-02] MEDS: APRESOLINE 20 MG/ML INJ IV ONE (17:05)
[2024-07-02] MEDS: PIPERACILLIN/TAZOBACTAM 3.375 GM in Sodium Chloride 100ML MINI-BAG PLUS 100 ML IV SCH (18:02)
[2024-07-03 05:34] LABS: Hematocrit 42.5 % (40.1-51.0); Hemoglobin 13.5 g/dL (13.7-17.5); Mean Cell Volume 89.1 fL (79.0-92.2); Mean Corpuscular Hemoglobin 28.3 pg (25.7-32.2); Mean Corpuscular Hgb Concent. 31.8 g/dL (32.3-36.5); Platelet Count 512 x10^3/uL (163-337); Red Blood Count 4.77 x10^6/uL (4.63-6.08); Red Cell Distribution Width 17.2 % (11.6-14.4); White Blood Count 16.9 x10^3/uL (4.23-9.07)
[2024-07-03 06:09] LABS: ALBUMIN 3.6 g/dL (3.5-5.0); ANION GAP 12.1 MEQ/L (5-15); BILIRUBIN,TOTAL 1.5 mg/dL (0.2-1.3); Creatinine 1 0.9 mg/dL (0.66-1.25); EST GLOMERULAR FILTRATION RATE 82.7 ML/MIN; MAGNESIUM 2.3 mg/dL (1.6-2.3); Potassium 3.4 mmol/L (3.5-5.1); Total Protein 7.6 g/dL (6.3-8.2)
[2024-07-03] MEDS: Klor Con PO SCH (09:00)
[2024-07-03] MEDS ORDERED: ROCEPHIN 1 GM / 100 ML NaCl 1 GM/100 ML IVPB IV SCH (10:00)
[2024-07-03] MEDS: Sodium Chloride 0.9% 1000 ML 1,000 ML IV SCH (10:28)
[2024-07-03] MEDS: NORVASC 5 MG PO SCH (10:29)
[2024-07-03] MEDS: Diflucan 100 MG PO SCH (10:29)
--- NOTE | 2024-07-03 10:59 | PCM.CONS ---
History of Present Illness - Date of Consult Date of Encounter: 07/03/24 Consulting Procurement Internship: REGAN JOSUE MD Requesting Provider: Attending Provider: RAUL LIMA MD Primary Care Provider: PCP: MANJIT MALDONADO Consent was: Given for this tele-med encounter - Consult Narrative Reason for Consult: Elevated troponin-I HPI: Patient is a 88M who denies fevers, chills, nausea, vomiting, diarrhea, syncope, presyncope, dysphagia,odynophagia, orthopnea, paroxysmal nocturnal dyspnea, shortness of breath, chest pain, refluxsymptoms, belly pain, dysuria, hematuria, melena, hematochezia, seizures, paralysis, or other neurological changes. All other systems have been reviewed and are negative. cc:: The requesting physician will be sent a copy of the consult. - Past Medical History Past Medical History: Yes Neurological History: Migraines ENT History: Cataracts, Glaucoma Cardiac History: Hypertension Respiratory History: COPD Endocrine Medical History: No Pertinent History Musculoskelatal History: Arthritis, Osteoarthritis GI Medical History: GERD History: Bladder Cancer Pyscho-Social History: Depression Male Reproductive Disorders: No Pertinent History Comment: bladder cancer 2012. home oxygen at bedtime - Past Surgical History Past Surgical History: Yes Neuro Surgical History: No Pertinent History Cardiac History: No Pertinent History Respiratory Surgery: No Pertinent History GI Surgical History: No Pertinent History Genitourinary Surgical Hx: No Pertinent History Musculskeletal Surgical Hx: Joint Replacement, Orthopedic Surgery Male Surgical History: No Pertinent History Other Surgical History: Bilateral hip replacement, Bilateral shoulder replacement, bladder biopsy Significant Family History: no pertinent family hx - Social History Smoking Status: Never smoker Exposure to second hand smoke: No Alcohol: None Drug Use: none - Social Determinants of Health Will the patient participate in the screening: Yes Do you worry about a steady place to live?: No Do you have any problems with any of the following?: No known problems In the past 12 months,have you had to go without utilities?: No Have you or anyone in your house had to go without enough: No Transportation Issues: No Has anyone in your support network made you feel unsafe?: No Does the patient want assistance with any of the above?: No Medications & Allergies Home Medications: Home Medication List Ferrous Sulfate 325 mg PO BID 02/20/22 [History Confirmed 07/01/24] Multivitamin [Multi-Vitamin Daily] 1 tab PO DAILY 02/20/22 [History Confirmed 07/01/24] Olanzapine 5 mg [zyPREXA 5MG TABLET] 5 mg PO HS 02/20/22 [History Confirmed 07/01/24] Dorzolamide HCl/Pf [Dorzolamide 2% Eye Drop] 1 drop OP BID 05/21/22 [History Confirmed 07/01/24] Apixaban [Eliquis 5 mg Tablet] 2.5 mg PO BID 06/02/22 [History Confirmed 07/01/24] Clonidine HCl 0.1 mg [Clonidine 0.1 mg Tablet] 0.2 mg PO TID 06/02/22 [History Confirmed 07/01/24] Furosemide 40 mg [Lasix 40 MG] 40 mg PO BID 06/02/22 [History Confirmed 07/01/24] Metoprolol Tartrate 50 mg [Lopressor 50 MG] 75 mg PO BID 06/02/22 [History Confirmed 07/01/24] Potassium Chloride [Klor-Con 10] 20 meq PO DAILY 06/02/22 [History Confirmed 07/01/24] Sertraline HCl 100 mg PO QHS 06/02/22 [History Confirmed 07/02/24] Tamsulosin HCl 0.4 mg [Flomax 0.4 MG] 0.4 mg PO HS 06/02/22 [History Confirmed 07/01/24] Lisinopril 10 mg [Zestril 10 MG] 20 mg PO BID 10/30/22 [History Confirmed 07/01/24] Magnesium Oxide 400 mg [Mag-Ox 400] 400 mg PO DAILY 12/02/22 [History Confirmed 07/01/24] Timolol Maleate/Pf [Timolol Maleate 0.5% Eye Drop] 1 drop OP BID 12/03/22 [History Confirmed 07/01/24] Naloxone HCl [Narcan] 4 mg IN UD 05/25/23 [History Confirmed 07/01/24] Amlodipine Besylate [Norvasc] 5 mg PO DAILY 07/01/23 [History Confirmed 07/01/24] PANTOPRAZOLE 40 mg Tablet [Protonix 40MG Tablet] 40 mg PO DAILY 07/01/23 [History Confirmed 07/01/24] Acetaminophen 325 mg [Tylenol 325 mg] 650 mg PO Q4H PRN PRN tablet 06/28/24 [Rx Confirmed 07/01/24] Cholecalciferol (Vitamin D3) [Vitamin D] 1,000 unit PO DAILY tablet 06/28/24 [Rx Confirmed 07/01/24] Docusate Sodium 100 mg [Docusate Sodium 100 MG] 100 mg PO QAM cap 06/28/24 [Rx Confirmed 07/01/24] Morphine Sulfate [Morphine Sulfate ER] 45 mg PO DAILY 3 Days #3 tablet MDD 1 06/28/24 [Rx Confirmed 07/01/24] Dextromethorphan/Benzocaine [Cepacol Sore Throat-Cough Joycelyn] 1 lozenge PO Q4HPRN PRN 07/01/24 [History Confirmed 07/01/24] Morphine Sulfate [Morphine Sulfate ER] 30 mg PO QHS MDD 1 07/01/24 [History Confirmed 07/02/24] Zinc Oxide Ointment 30 gm 1 each TOP BID 07/01/24 [History Confirmed 07/02/24] Allergies/Adverse Reactions: Allergies Allergy/AdvReac Type Severity Reaction Status Date / Time No Known Allergies Allergy Verified 07/01/24 14:58 Exam - Vitals Vital Signs: Vital Signs - 24 hr Temp Pulse Resp BP Pulse Ox 07/03/24 07:17 97.5 F 77 16 175/79 95 07/03/24 06:27 94 L 07/03/24 04:00 97.6 F 92 H 16 190/92 97 07/03/24 00:00 98.0 F 89 20 165/89 93 L 07/02/24 19:28 99.1 F 83 21 191/91 94 L 07/02/24 19:05 94 L 07/02/24 17:58 190/84 07/02/24 16:00 97.6 F 72 25 H 208/92 93 L 07/02/24 14:11 94 L 07/02/24 12:00 97.3 F 78 22 134/94 93 L SpO2: 95 Results Vital Signs: Vital Signs - 24 hr Temp Pulse Resp BP Pulse Ox 07/03/24 07:17 97.5 F 77 16 175/79 95 07/03/24 06:27 94 L 07/03/24 04:00 97.6 F 92 H 16 190/92 97 07/03/24 00:00 98.0 F 89 20 165/89 93 L 07/02/24 19:28 99.1 F 83 21 191/91 94 L 07/02/24 19:05 94 L 07/02/24 17:58 190/84 07/02/24 16:00 97.6 F 72 25 H 208/92 93 L 07/02/24 14:11 94 L 07/02/24 12:00 97.3 F 78 22 134/94 93 L Pain Assessment - Last Documented Pain Intensity 7 Pain Scale Used 0-10 Pain Scale Intake and Output: Intake & Output 06/30/24 07/01/24 07/02/24 07/03/24 11:59 11:59 11:59 11:59 Intake Total 440 1573 Balance 440 1573 Weight 73.5 kg LAB: I have reviewed the Labs in Virtual 3-D Display for Smartphones. Radiology Exams: Radiology Procedures Category Date Time Status ABDOMEN AND PELVIS W CONTRAST [CT] Stat Exams 07/02/24 08:56 Completed CERVICAL SPINE WO CONTRAST [CT] Stat Exams 07/01/24 14:47 Completed CHEST WITHOUT CONTRAST [CT] Stat Exams 07/01/24 14:47 Completed HEAD WITHOUT CONTRAST [CT] Stat Exams 07/01/24 14:47 Completed Ultrasound Kidney [KIDNEY] [US] Routine Exams 07/03/24 08:[address] without Contrast 07/01/2024: 1. No pulmonary contusion or pneumothorax. 2. Healed right 5th- 8th rib fractures. 3. Heart size within normal limits. 4. Atheromatous calcification of the aorta. 5. Ectasia of the ascending aorta. Cervical spine CT without contrast 07/01/2024: 1. No evidence of acute frature or disclocation. 2. Cervical spondylodegenerative changes.at the C5-C6 and C6-C7 levels. Head CT without contrast 07/01/2024: No acute intracranial abnormlaity. Accentuated periventricular hypdensities compatible with leukoaraiosis. Abdomen/Pelvis CT with contrast 07/02/2024: 1. Right small renal mid-calyceal stone - 6x4 mm 2. Possible small left VUJ calculus masked by prosthetic artifact. 3. Right mid hydroureteronephrosis with distal ureter masked by prosthetic artifact. 4. left greater trochanter displaced fracture. 5. Calcified ateromatous plaque of aorta and its branches. Renal ultrasound 07/03/2024: Left renal cyst. Otherwise unremarkable study. TTE 04/10/2024: 1. Normal LV size and function. 2. There is basal septal hypertrophy. 3. Left ventricular ejection fraction estimated by 2D at 55-60 percent. 4. Normal right ventricular size and function. 5. Mild aortic valve regurgitation. 6. There is no significant pericardial effusion. Tracing 1 Attestation: I have reviewed this EKG and interpreted as documented below. EKG Narrative: ECGs 04/08/2024: NSR with occasional premature atrial complexes and first degree AV block at 71 bpm. LAD. 07/01/2024: Sinus tachycardia with occasional PACs at 106 bpm. LAFB. LVH by voltage. Nonspecific T wave abnomality. 07/02/2024: NSR with occasional PACs at 86 bpm. LVH by voltage. Assessment & Plan (1) Elevated troponin Current Visit: Yes Status: Acute Assessment & Plan: Mildly elevated troponin-I HS with mild upward trend during first two hospital days. Presentation not consistent with acute coronary syndrome. Suspect this represents demand ischemia related to his moderate to severely elevated HTN. Further cardiac workup is not necessary. Code(s): R79.89 - OTHER SPECIFIED ABNORMAL FINDINGS OF BLOOD CHEMISTRY (2) HTN (hypertension) Current Visit: Yes Status: Acute Assessment & Plan: Moderate to severely elevated during this hospitalization. Agree with increasing amlodipine. Will also increase metoprolol tartrate to 100 mg twice daily starting tonight. Code(s): I10 - ESSENTIAL (PRIMARY) HYPERTENSION (3) Paroxysmal atrial fibrillation Current Visit: Yes Status: Acute Assessment & Plan: Remains in sinus rhythm. Continue Eliquis. Code(s): I48.0 - PAROXYSMAL ATRIAL FIBRILLATION - Encounter Encounter: "The entirety of this encounter was performed via Telemedicine using audio and visual." Permission granted by patient for this type of encounter. Case discussed with Shira Bautista NP earlier today. Regan Josue MD [facility] [facility] [phone]
--- NOTE | 2024-07-03 13:03 | PCM.NOTE ---
Date and Time: 07/03/24 1247 Subjective Assessment: 07/03/24 is a 88 year old male with history of hypertension, A-fib, COPD on 2 L nocturnal oxygen, CHF, chronic pain, and bladder cancer. He was admitted 07/02/24 after the care home he resides at noted that the patient had altered mental mental status. The patient was recently admitted at [facility] from 06/23/24- 06/28/24 for a fracture to the proximal aspect of the left femur involving greater trochanter which did not require surgical intervention. Patient was medically stable and discharged to the care home for rehab. Patient was discharged to the care home on both morphine sulfate ER and morphine sulfate IR for pain control. The care home felt the patient's increased confusion co uld be partly due to his Theodosia not being continued. CT chest, and CT cervical spine with no acute findings. CT head does show mucosal thickening of the right maxillary sinus with internal calcific densities possibly fungal colonization. On arrival the patient was hypertensive and tachycardic. Lab work up notable for leukocytosis with WBC at 20.1, hypokalemia with potassium at 3.3, lactic acid at 2.3, and uptrending troponins. Cardiology consulted for elevated trops. Pt denies any chest pain. Neurology consulted for intermittent confusion and abnormal CT head. Family states he has no hx of dementia or alzheimer's. Pt has new onset (since last visit), urinary incontinence, abnormal gate, memory and confusion concerns. He is now wearing depends d/t his urinary incontinence. CT abd/pelvis shows concern for right small mid- calyceal stone 6x4 mm, small left VUJ calculus. mild right [id number], fine nodular soft tissue thickening at the posterior inferior aspect of the liver likely peritoneal thickening 9mm thickness. US notified that BL US of kidneys needed for further eval. Pt has no c/o pain on exam. Unable to strain urine as he is incontinent. Bili improved 1.50. K+ 3.4- replaced. WBC improved 16., continue Zosyn. Repeat Urine culture pending. BC x2 negative. Pt denies any complaints at this time. - Review of Systems Constitutional: Weakness, No Fever, No Chills Eyes: No Symptoms Ears, Nose, & Throat: No Symptoms Respiratory: No Cough, No Short Of Breath Cardiac: No Chest Pain, No Edema, No Syncope Abdominal/Gastrointestinal: No Abdominal Pain, No Nausea, No Vomiting, No Diarrhea Genitourinary Symptoms: Incontinence, No Dysuria Musculoskeletal: No Back Pain, No Neck Pain Skin: No Rash Neurological: No Dizziness, No Focal Weakness, No Sensory Changes Psychological: No Symptoms, Memory Loss Endocrine: No Symptoms Hematologic/Lymphatic: No Symptoms Immunological/Allergic: No Symptoms Objective Exam General Appearance: no apparent distress, alert Neurologic Exam: alert, oriented x 3, cooperative, normal mood/affect, nml cerebellar function, sensation nml, motor weakness, No motor deficits Skin Exam: normal color, warm, dry Eye Exam: PERRL, EOMI, eyes nml inspection Ears, Nose, Throat Exam: normal ENT inspection, pharynx normal, moist mucous me mbranes Neck Exam: normal inspection, non-tender, supple, full range of motion Respiratory Exam: normal breath sounds, lungs clear, No respiratory distress Cardiovascular Exam: regular rate/rhythm, normal heart sounds Gastrointestinal/Abdomen Exam: soft, No tenderness, No mass Extremity Exam: normal inspection, normal range of motion Back Exam: normal inspection, normal range of motion, No CVA tenderness, No vertebral tenderness Male Genitalia Exam: deferred Rectal Exam: deferred Objective Data Vital Signs: Vital Signs - 24 hr Temp Pulse Resp BP Pulse Ox 07/03/24 11:33 97.9 F 86 15 190/88 94 L 07/03/24 10:59 95 07/03/24 07:17 97.5 F 77 16 175/79 95 07/03/24 06:27 94 L 07/03/24 04:00 97.6 F 92 H 16 190/92 97 07/03/24 00:00 98.0 F 89 20 165/89 93 L 07/02/24 19:28 99.1 F 83 21 191/91 94 L 07/02/24 19:05 94 L 07/02/24 17:58 190/84 07/02/24 16:00 97.6 F 72 25 H 208/92 93 L 07/02/24 14:11 94 L Pain Assessment - Last Documented Pain Intensity 7 Pain Scale Used 0-10 Pain Scale Intake and Output: Intake & Output 07/01/24 07/02/24 07/03/24 07/04/24 11:59 11:59 11:59 11:59 Intake Total 440 3049 Balance 440 1573 Weight 73.5 kg Lab Results: Lab Results-Last 24 Hours 07/02/24 07/02/24 07/02/24 Range/Units 14:48 15:25 19:02 WBC (4.23-9.07) x10^3/uL RBC (4.63-6.08) x10^6/uL Hgb (13.7-17.5) g/dL Hct (40.1-51.0) % MCV (79.0-92.2) fL MCH (25.7-32.2) pg MCHC (32.3-36.5) g/dL RDW (11.6-14.4) % Plt Count (163-337) x10^3/uL MPV (9.4-12.4) fL Sodium (135-145) mmol/L Potassium 3.0 L* 3.6 (3.5-5.1) mmol/L Chloride (98-107) mmol/L Carbon Dioxide (22-30) mmol/L Anion Gap (5-15) MEQ/L BUN (9-20) mg/dL Creatinine (0.66-1.25) mg/dL Estimated GFR ML/MIN Glucose (74-106) mg/dL Calcium (8.4-10.2) mg/dL Magnesium 2.2 (1.6-2.3) mg/dL Total Bilirubin (0.2-1.3) mg/dL AST (17-59) U/L ALT (0-50) U/L Alkaline Phosphatase (38-126) U/L Serum Total Protein (6.3-8.2) g/dL Albumin (3.5-5.0) g/dL 07/03/24 07/03/24 Range/Units 04:32 04:32 WBC 16.9 H (4.23-9.07) x10^3/uL RBC 4.77 (4.63-6.08) x10^6/uL Hgb 13.5 L (13.7-17.5) g/dL Hct 42.5 (40.1-51.0) % MCV 89.1 (79.0-92.2) fL MCH 28.3 (25.7-32.2) pg MCHC 31.8 L (32.3-36.5) g/dL RDW 17.2 H (11.6-14.4) % Plt Count 512 H (163-337) x10^3/uL MPV 9.0 L (9.4-12.4) fL Sodium 139 (135-145) mmol/L Potassium 3.4 L (3.5-5.1) mmol/L Chloride 105 (98-107) mmol/L Carbon Dioxide 24 (22-30) mmol/L Anion Gap 12.1 (5-15) MEQ/L BUN 17 (9-20) mg/dL Creatinine 0.90 (0.66-1.25) mg/dL Estimated GFR 82.7 ML/MIN Glucose 141 H (74-106) mg/dL Calcium 10.0 (8.4-10.2) mg/dL Magnesium 2.3 (1.6-2.3) mg/dL Total Bilirubin 1.50 H (0.2-1.3) mg/dL AST 35 (17-59) U/L ALT 22 (0-50) U/L Alkaline Phosphatase 106 (38-126) U/L Serum Total Protein 7.6 (6.3-8.2) g/dL Albumin 3.6 (3.5-5.0) g/dL Radiology Exams: Radiology Procedures Category Date Time Status ABDOMEN AND PELVIS W CONTRAST [CT] Stat Exams 07/02/24 08:56 Completed CERVICAL SPINE WO CONTRAST [CT] Stat Exams 07/01/24 14:47 Completed CHEST WITHOUT CONTRAST [CT] Stat Exams 07/01/24 14:47 Completed HEAD WITHOUT CONTRAST [CT] Stat Exams 07/01/24 14:47 Completed Ultrasound Kidney [KIDNEY] [US] Routine Exams 07/03/24 08:12 Ordered Assessment/Plan (1) Peritoneal lesion Current Visit: Yes Status: Acute Assessment & Plan: - Seen on CT fine nodular soft tissue thickening at the posterior inferior aspect of the liver likely peritoneal thickening 9 mm thickness - Will need OP f/u for further eval with specialist at d/c. Code(s): K66.9 - DISORDER OF PERITONEUM, UNSPECIFIED (2) Elevated bilirubin Current Visit: Yes Status: Acute Assessment & Plan: - Bili 1.50- improving- trend - CT scan reviewed - CMP reviewed Code(s): R17 - UNSPECIFIED JAUNDICE (3) Calyceal renal calculus Current Visit: Yes Status: Acute Assessment & Plan: - As seen on CT - US for further evaluation - NPO - IVF Code(s): N20.0 - CALCULUS OF KIDNEY (4) Calculus of ureterovesical junction (UVJ) Current Visit: Yes Status: Acute Assessment & Plan: - as seen on CT - Us for further evaluation - NPO - IVF - Consider transfer to higher level of care Code(s): N20.1 - CALCULUS OF URETER (5) AMS (altered mental status) Current Visit: Yes Status: Acute Assessment & Plan: - improved sicne admission - A& O x3 today - CT head reviewed - Neurology consulted for abnormal results on CT - Family reports no hx of Dementia or Alzheimer's - Pt has new urinary incontinence, gait changes, memory concerns, and intermittent confusion. - Will need OP f/u with neurology Code(s): R41.82 - ALTERED MENTAL STATUS, UNSPECIFIED (6) COPD (chronic obstructive pulmonary disease) Current Visit: Yes Status: Acute Assessment & Plan: -Baseline 2L - supplemental oxygen with goal spo2 88-92% -RT eval -Neb/INH -CT chest with no acute findings (7) Elevated troponin Current Visit: Yes Status: Acute Assessment & Plan: -uptrending trops 0.068, 0.082, 0.090 - EKG - denies CP - tele - Cardiology consult - Echo 04/10/24- unable to review Code(s): R79.89 - OTHER SPECIFIED ABNORMAL FINDINGS OF BLOOD CHEMISTRY (8) Frequent falls Current Visit: Yes Status: Acute Assessment & Plan: -Etiology likely multifactorial including polypharmacy. No infectious source identifed as CT chest and UA are unremarkable. CTH was also unremarkable. -Fall precautions -SNF for rehab at discharge Code(s): R29.6 - REPEATED FALLS (9) HTN (hypertension) Current Visit: Yes Status: Acute Assessment & Plan: BP increased 2:2 pain - Monitor BP - Continue home meds - Hydralizine PRN - increased amlodipine to 10mg Code(s): I10 - ESSENTIAL (PRIMARY) HYPERTENSION (10) History of bladder cancer Current Visit: Yes Status: Chronic Assessment & Plan: -noted, adds complexity Code(s): Z85.51 - PERSONAL HISTORY OF MALIGNANT NEOPLASM OF BLADDER (11) Hypokalemia Current Visit: Yes Status: Acute Assessment & Plan: - K+ 3.4- replaced- trend Code(s): E87.6 - HYPOKALEMIA (12) Leukocytosis Current Visit: Yes Status: Acute Assessment & Plan: - improved 16.9 - 2:2 sinusitis and renal calculi? - repeat UC pending. Code(s): D72.829 - ELEVATED WHITE BLOOD CELL COUNT, UNSPECIFIED (13) Delirium Current Visit: Yes Status: Acute Assessment & Plan: - Age related in unfamiliar place. Code(s): R41.0 - DISORIENTATION, UNSPECIFIED (14) Dementia Current Visit: No Status: Chronic Assessment & Plan: - Discussed with tele- neurology - Per neurology CT shows age related changes that can contribute to confusion - Pt is an unfamiliar place and may cause delirium - Per neurology pt's is focused on pain meds and not open to further discussion. 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
[2024-07-03] MEDS: APRESOLINE 20 MG/ML INJ IV PRN (16:18)
[2024-07-03] MEDS: NORCO 10-325 MG PO PRN (16:31)
--- NOTE | 2024-07-03 17:21 | XRAY ---
Indication: Right renal stone with hydronephrosis. Two-dimensional renal sonogram performed. Comparison: None Both kidneys are normal in reniform shape with normal color perfusion. Right kidney measures 9.5 x 5.2 x 5.7 cm and left measures 10.3 x 5.6 x 3.9 cm. Left lower kidney demonstrates 3.1 cm cyst. Provider Contracting Consultant notes left lower renal calculus but no corresponding calculus on CT one day earlier and therefore probably not real. No focal solid renal mass or hydronephrosis. Cortical medullary differentiation preserved. Normal distended urinary bladder is grossly unremarkable. Normal bilateral ureteral jets. Impression: Left renal cyst. Remaining renal sonogram is negative.
[2024-07-03] MEDS: zyPREXA 5MG TABLET PO SCH (20:53)
[2024-07-03] MEDS: Lopressor 25MG Tab PO ONE (22:59)
[2024-07-04 05:09] LABS: Hematocrit 34.9 % (40.1-51.0); Hemoglobin 11.2 g/dL (13.7-17.5); Mean Corpuscular Hemoglobin 28.6 pg (25.7-32.2); Mean Corpuscular Hgb Concent. 32.1 g/dL (32.3-36.5); Mean Platelet Volume 8.8 fL (9.4-12.4); Platelet Count 424 x10^3/uL (163-337); Red Blood Count 3.92 x10^6/uL (4.63-6.08); Red Cell Distribution Width 17.2 % (11.6-14.4); White Blood Count 13.8 x10^3/uL (4.23-9.07)
[2024-07-04 05:23] LABS: ALBUMIN 2.8 g/dL (3.5-5.0); ANION GAP 9.5 MEQ/L (5-15); BILIRUBIN,TOTAL 1.1 mg/dL (0.2-1.3); Calcium 8.8 mg/dL (8.4-10.2); Creatinine 1 0.85 mg/dL (0.66-1.25); EST GLOMERULAR FILTRATION RATE 84.1 ML/MIN; Potassium 3.1 mmol/L (3.5-5.1); Total Protein 6.2 g/dL (6.3-8.2)
[2024-07-04] MEDS: K-LYTE PO SCH ×2 (09:01→14:48)
[2024-07-04] MEDS: Lopressor 50 MG PO SCH (09:03)
--- NOTE | 2024-07-04 10:35 | PCM.NOTE ---
Date and Time: 07/04/24 1030 Subjective Assessment: 07/03/24 is a 88 year old male with history of hypertension, A-fib, COPD on 2 L nocturnal oxygen, CHF, chronic pain, and bladder cancer. He was admitted 07/02/24 after the [facility] noted that the patient had altered mental mental status. The patient was recently admitted at [facility] from 06/23/24- 06/28/24 for a fracture to the proximal aspect of the left femur involving greater trochanter which did not require surgical intervention. Patient was medically stable and discharged to the [facility] for rehab. Patient was discharged to the [facility] on both morphine sulfate ER and morphine sulfate IR for pain control. The fci felt the patient's increased confusion c ould be partly due to his [place] not being continued. CT chest, and CT cervical spine with no acute findings. CT head does show mucosal thickening of the right maxillary sinus with internal calcific densities possibly fungal colonization. On arrival the patient was hypertensive and tachycardic. Lab work up notable for leukocytosis with WBC at 20.1, hypokalemia with potassium at 3.3, lactic acid at 2.3, and uptrending troponins. Cardiology consulted for elevated trops. Pt denies any chest pain. Neurology consulted for intermittent confusion and abnormal CT head. Family states he has no hx of dementia or alzheimer's. Pt has new onset (since last visit), urinary incontinence, abnormal gate, memory and confusion concerns. He is now wearing depends d/t his urinary incontinence. CT abd/pelvis shows concern for right small mid- calyceal stone 6x4 mm, small left VUJ calculus. mild right [id number], fine nodular soft tissue thickening at the posterior inferior aspect of the liver likely peritoneal thickening 9mm thickness. US notified that BL US of kidneys needed for further eval. Pt has no c/o pain on exam. Unable to strain urine as he is incontinent. Bili improved 1.50. K+ 3.4- replaced. WBC improved 16., continue Zosyn. Repeat Urine culture pending. BC x2 negative. Pt denies any complaints at this time. 07/04/24 Pt resting in bed he is A&O x3. Per staff pt has intermittent confusion. US negative for calculi as seen previously on CT scan. Pt reports no flank pain. K+ 3.1 and replaced. wanting placement at different facility for rehab and case management is working on this. WBC improved with Zosyn. Pt does have some femur and hip pain, continue narcotic pain meds. He denies CP, SOB, abd. pain, N/V/D. - Review of Systems Constitutional: No Fever, No Chills Eyes: No Symptoms Ears, Nose, & Throat: No Symptoms Respiratory: No Cough, No Short Of Breath Cardiac: No Chest Pain, No Edema, No Syncope Abdominal/Gastrointestinal: No Abdominal Pain, No Nausea, No Vomiting, No Diarrhea Genitourinary Symptoms: No Dysuria Musculoskeletal: Joint Pain, No Back Pain, No Neck Pain Skin: No Rash Neurological: No Dizziness, No Focal Weakness, No Sensory Changes Psychological: No Symptoms Endocrine: No Symptoms Hematologic/Lymphatic: No Symptoms Immunological/Allergic: No Symptoms Objective Exam General Appearance: no apparent distress, alert Neurologic Exam: alert, oriented x 3, cooperative, normal mood/affect, nml cerebellar function, sensation nml, confusion (intermittent), motor weakness, No motor deficits Skin Exam: normal color, warm, dry Eye Exam: PERRL, EOMI, eyes nml inspection Ears, Nose, Throat Exam: normal ENT inspection, pharynx normal, moist mucous membranes Neck Exam: normal inspection, non-tender, supple, full range of motion Respiratory Exam: normal breath sounds, lungs clear, No respiratory distress Cardiovascular Exam: regular rate/rhythm, normal heart sounds Gastrointestinal/Abdomen Exam: soft, No tenderness, No mass Extremity Exam: normal inspection, normal range of motion Back Exam: normal inspection, normal range of motion, No CVA tenderness, No vertebral tenderness Male Genitalia Exam: deferred Rectal Exam: deferred Objective Data Vital Signs: Vital Signs - 24 hr Temp Pulse Resp BP Pulse Ox 07/04/24 08:52 97.8 F 81 18 135/80 93 L 07/04/24 08:00 97.8 F 81 135/80 93 L 07/04/24 07:44 91 L 07/04/24 04:00 97.5 F 86 16 163/73 91 L 07/04/24 00:00 97.5 F 76 16 156/76 96 07/03/24 23:10 95 07/03/24 20:12 95 07/03/24 19:43 98.3 F 87 16 146/62 95 07/03/24 16:00 97.7 F 86 16 192/83 96 07/03/24 11:33 97.9 F 86 15 190/88 94 L Pain Assessment - Last Documented Pain Intensity 8 Pain Scale Used 0-10 Pain Scale Intake and Output: Intake & Output 07/01/24 07/02/24 07/03/24 07/04/24 11:59 11:59 11:59 11:59 Intake Total 440 1573 600 Balance 440 1573 600 Weight 73.5 kg Lab Results: Lab Results-Last 24 Hours 07/03/24 07/04/24 07/04/24 Range/Units 14:00 05:00 05:00 WBC 13.8 H (4.23-9.07) x10^3/uL RBC 3.92 L (4.63-6.08) x10^6/uL Hgb 11.2 L (13.7-17.5) g/dL Hct 34.9 L (40.1-51.0) % MCV 89.0 (79.0-92.2) fL MCH 28.6 (25.7-32.2) pg MCHC 32.1 L (32.3-36.5) g/dL RDW 17.2 H (11.6-14.4) % Plt Count 424 H (163-337) x10^3/uL MPV 8.8 L (9.4-12.4) fL Sodium 138 (135-145) mmol/L Potassium 3.5 3.1 L (3.5-5.1) mmol/L Chloride 107 (98-107) mmol/L Carbon Dioxide 25 (22-30) mmol/L Anion Gap 9.5 (5-15) MEQ/L BUN 13 (9-20) mg/dL Creatinine 0.85 (0.66-1.25) mg/dL Estimated GFR 84.1 ML/MIN Glucose 112 H (74-106) mg/dL Calcium 8.8 (8.4-10.2) mg/dL Magnesium 2.0 (1.6-2.3) mg/dL Total Bilirubin 1.10 (0.2-1.3) mg/dL AST 28 (17-59) U/L ALT 18 (0-50) U/L Alkaline Phosphatase 88 (38-126) U/L Serum Total Protein 6.2 L (6.3-8.2) g/dL Albumin 2.8 L (3.5-5.0) g/dL Radiology Exams: Radiology Procedures Category Date Time Status Ultrasound Kidney [KIDNEY] [US] Routine Exams 07/03/24 08:12 Completed Multi-Disciplinary Progress Notes: Multi-Disciplinary Progress Notes 07/03/24 13:56 Case Management Note by Keesha Pinedo PATIENT FROM [facility]- INTERESTED IN SENDING PATIENT TO [facility] FOR [facility] AFTER THIS STAY. WILL SEND REFERRAL Initialized on 07/03/24 13:56 - END OF NOTE Assessment/Plan (1) AMS (altered mental status) Current Visit: Yes Status: Acute Code(s): R41.82 - ALTERED MENTAL STATUS, UNSPECIFIED (2) Peritoneal lesion Current Visit: Yes Status: Acute Code(s): K66.9 - DISORDER OF PERITONEUM, UNSPECIFIED (3) Elevated bilirubin Current Visit: Yes Status: Resolved Code(s): R17 - UNSPECIFIED JAUNDICE (4) Calyceal renal calculus Current Visit: Yes Status: Acute Code(s): N20.0 - CALCULUS OF KIDNEY (5) Calculus of ureterovesical junction (UVJ) Current Visit: Yes Status: Acute Code(s): N20.1 - CALCULUS OF URETER (6) COPD (chronic obstructive pulmonary disease) Current Visit: Yes Status: Acute (7) Elevated troponin Current Visit: Yes Status: Acute Code(s): R79.89 - OTHER SPECIFIED ABNORMAL FINDINGS OF BLOOD CHEMISTRY (8) Frequent falls Current Visit: Yes Status: Acute Code(s): R29.6 - REPEATED FALLS (9) HTN (hypertension) Current Visit: Yes Status: Acute Code(s): I10 - ESSENTIAL (PRIMARY) HYPERTENSION (10) History of bladder cancer Current Visit: Yes Status: Chronic Code(s): Z85.51 - PERSONAL HISTORY OF MALIGNANT NEOPLASM OF BLADDER (11) Hypokalemia Current Visit: Yes Status: Acute Code(s): E87.6 - HYPOKALEMIA (12) Leukocytosis Current Visit: Yes Status: Acute Code(s): D72.829 - ELEVATED WHITE BLOOD CELL COUNT, UNSPECIFIED (13) Delirium Current Visit: Yes Status: Acute Code(s): R41.0 - DISORIENTATION, UNSPECIFIED (14) Dementia Current Visit: No Status: Chronic Code(s): F03.90 - UNSP DEMENTIA, UNSP SEVERITY, WITHOUT BEH/PSYCH/MOOD/ANX (15) Maxillary sinusitis Current Visit: No Status: Acute Assessment & Plan: (1) Peritoneal lesion Current Visit: Yes Status: Acute Assessment & Plan: - Seen on CT fine nodular soft tissue thickening at the posterior inferior aspect of the liver likely peritoneal thickening 9 mm thickness - Will need OP f/u for further eval with specialist at d/c. Code(s): K66.9 - DISORDER OF PERITONEUM, UNSPECIFIED (2) Elevated bilirubin Current Visit: Yes Status: Acute Assessment & Plan: - Bili 1.50- improving- trend - CT scan reviewed - CMP reviewed 07/04 - Bili normal- resoved Code(s): R17 - UNSPECIFIED JAUNDICE (3) Calyceal renal calculus Current Visit: Yes Status: Acute Assessment & Plan: - As seen on CT - US for further evaluation - NPO - IVF 07/04 - US negative for renal calculus Code(s): N20.0 - CALCULUS OF KIDNEY (4) Calculus of ureterovesical junction (UVJ) Current Visit: Yes Status: Acute Assessment & Plan: - as seen on CT - US for further evaluation - NPO - IVF - Consider transfer to higher level of care 07/04 - US negative Code(s): N20.1 - CALCULUS OF URETER (5) AMS (altered mental status) Current Visit: Yes Status: Acute Assessment & Plan: - improved since admission - A& O x3 today - CT head reviewed - Neurology consulted for abnormal results on CT - Family reports no hx of Dementia or Alzheimer's - Pt has new urinary incontinence, gait changes, memory concerns, and intermittent confusion. - Will need OP f/u with neurology 07/04 - A&O x3 with intermittent confusion per staff. Code(s): R41.82 - ALTERED MENTAL STATUS, UNSPECIFIED (6) COPD (chronic obstructive pulmonary disease) Current Visit: Yes Status: Acute Assessment & Plan: -Baseline 2L - supplemental oxygen with goal spo2 88-92% -RT eval -Neb/INH -CT chest with no acute findings (7) Elevated troponin Current Visit: Yes Status: Acute Assessment & Plan: -uptrending trops 0.068, 0.082, 0.090 - EKG - denies CP - tele - Cardiology consult- no new changes at this time - Echo 04/10/24- EF 55-60% - likely demand ischemia from HTN per cardiology note. Code(s): R79.89 - OTHER SPECIFIED ABNORMAL FINDINGS OF BLOOD CHEMISTRY (8) Frequent falls Current Visit: Yes Status: Acute Assessment & Plan: -Etiology likely multifactorial including polypharmacy. No infectious source identifed as CT chest and UA are unremarkable. CTH was also unremarkable. -Fall precautions -SNF for rehab at discharge Code(s): R29.6 - REPEATED FALLS (9) HTN (hypertension) Current Visit: Yes Status: Acute Assessment & Plan: BP increased 2:2 pain - Monitor BP - Continue home meds - Hydralizine PRN - increased amlodipine to 10mg Code(s): I10 - ESSENTIAL (PRIMARY) HYPERTENSION (10) History of bladder cancer Current Visit: Yes Status: Chronic Assessment & Plan: -noted, adds complexity Code(s): Z85.51 - PERSONAL HISTORY OF MALIGNANT NEOPLASM OF BLADDER (11) Hypokalemia Current Visit: Yes Status: Acute Assessment & Plan: - K+ 3.4- replaced- trend 07/04 - K+3.1 replaced- trend Code(s): E87.6 - HYPOKALEMIA (12) Leukocytosis Current Visit: Yes Status: Acute Assessment & Plan: - improved 16.9 - 2:2 sinusitis and renal calculi? - repeat UC pending. 07/04 - WBC 13.8- improving Code(s): D72.829 - ELEVATED WHITE BLOOD CELL COUNT, UNSPECIFIED (13) Delirium Current Visit: Yes Status: Acute Assessment & Plan: - Age related in unfamiliar place. Code(s): R41.0 - DISORIENTATION, UNSPECIFIED (14) Dementia Current Visit: No Status: Chronic Assessment & Plan: - Discussed with tele- neurology - Per neurology CT shows age related changes that can contribute to confusion - Pt is an unfamiliar place and may cause delirium - Per neurology pt's is focused on pain meds and not open to further discussion. 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
[2024-07-04 11:53] VITALS: BP 182/77; PULSE 73; RESP 17; TEMP 97.6
--- NOTE | 2024-07-04 13:54 | PCM.DS ---
Discharge Summary Date of Admission: 07/01/24 19:35 Date of Discharge: 07/04/24 Admitting Physician: RAUL LIMA MD Consults: Consults on Case 07/03/24 08:36 Cardiology Consult [Notify Popcorn Attendant of Admit] ROUTINE 07/03/24 10:30 Consult Neurology ROUTINE Primary Care Provider: MANJIT MALDONADO BRANDON Allergies Allergies No Known Allergies Allergy (Verified 07/01/24 14:58) Hospital Summary - Hospital Course Hospital Course: 07/03/24 is a 88 year old male with history of hypertension, A-fib, COPD on 2 L nocturnal oxygen, CHF, chronic pain, and bladder cancer. He was admitted after the custodial he resides at noted that the patient had altered mental mental status. The patient was recently admitted at [facility] from 06/23/24- 06/28/24 for a fracture to the proximal aspect of the left femur involving greater trochanter which did not require surgical intervention. Patient was medically stable and discharged to the custodial for rehab. Patient was discharged to the custodial on both morphine sulfate ER and morphine sulfate IR for pain control. The custodial felt the patient's increased confusion could be partly due to his [place] not being continued. CT chest, and CT cervical spine with no acute findings. CT head does show mucosal thickening of the right maxillary sinus with internal calcific densities possibly fungal colonization. On arrival the patient was hypertensive and tachycardic. Lab work up notable for leukocytosis with WBC at 20.1, hypokalemia with potassium at 3.3, lactic acid at 2.3, and uptrending troponins. Cardiology consulted for elevated trops. Pt denies any chest pain. Neurology consulted for intermittent confusion and abnormal CT head. Family states he has no hx of dementia or alzheimer's. Pt has new onset (since last visit), urinary incontinence, abnormal gate, memory and confusion concerns. He is now wearing depends d/t his urinary incontinence. CT abd/pelvis shows concern for right small mid- calyceal stone 6x4 mm, small left VUJ calculus. mild right [id number], fine nodular soft tissue thickening at the posterior inferior aspect of the liver likely peritoneal thickening 9mm thickness. US notified that BL US of kidneys needed for further eval. Pt has no c/o pain on exam. Unable to strain urine as he is incontinent. Bili improved 1.50. K+ 3.4- replaced. WBC improved 16., continue Zosyn. Repeat Urine culture pending. BC x2 negative. Pt denies any complaints at this time. 07/04/24 Pt resting in bed he is A&O x3. Per staff pt has intermittent confusion. US negative for calculi as seen previously on CT scan. Pt reports no flank pain. K+ 3.1 and replaced. wanting placement at different facility for rehab and case management is working on this. WBC improved with Zosyn. Pt does have some femur and hip pain, continue narcotic pain meds. He denies CP, SOB, abd. pain, N/V/D. Pt accepted to rehab facility today. - Vitals & Intake/Output Vital Signs: Vital Signs Temperature 97.6 F 07/04/24 11:52 Pulse Rate 73 07/04/24 11:52 Respiratory Rate 17 07/04/24 11:52 Blood Pressure 182/77 07/04/24 11:52 O2 Sat by Pulse Oximetry 98 07/04/24 11:52 Intake & Output: Intake & Output 07/02/24 07/03/24 07/04/24 07/05/24 11:59 11:59 11:59 11:59 Intake Total 440 1573 600 Balance 440 1573 600 Weight 73.5 kg - Lab Result Diagrams: 07/04/24 05:00 07/04/24 05:00 Lab Results-Last 24 Hrs: Lab Results-Last 24 Hours 07/03/24 07/04/24 07/04/24 Range/Units 14:00 05:00 05:00 WBC 13.8 H (4.23-9.07) x10^3/uL RBC 3.92 L (4.63-6.08) x10^6/uL Hgb 11.2 L (13.7-17.5) g/dL Hct 34.9 L (40.1-51.0) % MCV 89.0 (79.0-92.2) fL MCH 28.6 (25.7-32.2) pg MCHC 32.1 L (32.3-36.5) g/dL RDW 17.2 H (11.6-14.4) % Plt Count 424 H (163-337) x10^3/uL MPV 8.8 L (9.4-12.4) fL Sodium 138 (135-145) mmol/L Potassium 3.5 3.1 L (3.5-5.1) mmol/L Chloride 107 (98-107) mmol/L Carbon Dioxide 25 (22-30) mmol/L Anion Gap 9.5 (5-15) MEQ/L BUN 13 (9-20) mg/dL Creatinine 0.85 (0.66-1.25) mg/dL Estimated GFR 84.1 ML/MIN Glucose 112 H (74-106) mg/dL Calcium 8.8 (8.4-10.2) mg/dL Magnesium 2.0 (1.6-2.3) mg/dL Total Bilirubin 1.10 (0.2-1.3) mg/dL AST 28 (17-59) U/L ALT 18 (0-50) U/L Alkaline Phosphatase 88 (38-126) U/L Serum Total Protein 6.2 L (6.3-8.2) g/dL Albumin 2.8 L (3.5-5.0) g/dL Micro Results-Entire Visit: Microbiology 07/01/24 15:35 Urine Culture - Final Catherized NO GROWTH 07/01/24 15:22 Blood Culture - Preliminary Blood 07/01/24 15:18 Blood Culture - Preliminary Blood - Radiology Exams Ordered Rad Exams-Entire Visit: Radiology Procedures Category Date Time Status Ultrasound Kidney [KIDNEY] [US] Routine Exams 07/03/24 08:12 Completed - Procedures and Test Procedures and Tests throughout Hospitalization: Therapy Orders & Screens 07/02/24 08:00 EKG ROUTINE Comment: Diagnosis: Altered mental status, recurrent falls, elevated troponin 07/03/24 13:54 PT Eval & Treat ( Order) ONCE Reason for Eval:: NH PLACEMENT Diagnosis: Altered mental status, recurrent falls, elevated troponin Discharge Exam General Appearance: no apparent distress, alert Neurologic Exam: alert, oriented x 3, cooperative, normal mood/affect, nml cerebellar function, sensation nml, motor weakness, No motor deficits Eye Exam: PERRL, EOMI, eyes nml inspection Ears, Nose, Throat Exam: normal ENT inspection, pharynx normal, moist mucous membranes Neck Exam: normal inspection, non-tender, supple, full range of motion Respiratory Exam: normal breath sounds, lungs clear, No respiratory distress Cardiovascular Exam: regular rate/rhythm, normal heart sounds Gastrointestinal/Abdomen Exam: soft, No tenderness, No mass Male Genitalia Exam: deferred Rectal Exam: deferred Back Exam: normal inspection, normal range of motion, No CVA tenderness, No vertebral tenderness Extremity Exam: normal inspection, normal range of motion Skin Exam: normal color, warm, dry Final Diagnosis/Problem List - Final Discharge Diagnosis/Problem (1) AMS (altered mental status) Current Visit: Yes Status: Acute Code(s): R41.82 - ALTERED MENTAL STATUS, UNSPECIFIED (2) Peritoneal lesion Current Visit: Yes Status: Acute Code(s): K66.9 - DISORDER OF PERITONEUM, UNSPECIFIED (3) Elevated bilirubin Current Visit: Yes Status: Resolved Code(s): R17 - UNSPECIFIED JAUNDICE (4) Calyceal renal calculus Current Visit: Yes Status: Acute Code(s): N20.0 - CALCULUS OF KIDNEY (5) Calculus of ureterovesical junction (UVJ) Current Visit: Yes Status: Acute Code(s): N20.1 - CALCULUS OF URETER (6) COPD (chronic obstructive pulmonary disease) Current Visit: Yes Status: Acute (7) Elevated troponin Current Visit: Yes Status: Acute Code(s): R79.89 - OTHER SPECIFIED ABNORMAL FINDINGS OF BLOOD CHEMISTRY (8) Frequent falls Current Visit: Yes Status: Acute Code(s): R29.6 - REPEATED FALLS (9) HTN (hypertension) Current Visit: Yes Status: Acute Code(s): I10 - ESSENTIAL (PRIMARY) HYPERTENSION (10) History of bladder cancer Current Visit: Yes Status: Chronic Code(s): Z85.51 - PERSONAL HISTORY OF MALIGNANT NEOPLASM OF BLADDER (11) Hypokalemia Current Visit: Yes Status: Acute Code(s): E87.6 - HYPOKALEMIA (12) Leukocytosis Current Visit: Yes Status: Acute Code(s): D72.829 - ELEVATED WHITE BLOOD CELL COUNT, UNSPECIFIED (13) Delirium Current Visit: Yes Status: Acute Code(s): R41.0 - DISORIENTATION, UNSPECIFIED (14) Dementia Current Visit: No Status: Chronic Code(s): F03.90 - UNSP DEMENTIA, UNSP SEVERITY, WITHOUT BEH/PSYCH/MOOD/ANX (15) Maxillary sinusitis Current Visit: No Status: Acute Code(s): 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 Code(s): K66.9 - DISORDER OF PERITONEUM, UNSPECIFIED (2) Elevated bilirubin Current Visit: Yes Status: Acute Assessment & Plan: - Bili 1.50- improving- trend - CT scan reviewed - CMP reviewed 07/04 - Bili normal- resoved Code(s): R17 - UNSPECIFIED JAUNDICE (3) Calyceal renal calculus Current Visit: Yes Status: Acute Assessment & Plan: - As seen on CT - US for further evaluation - NPO - IVF 07/04 - US negative for renal calculus Code(s): N20.0 - CALCULUS OF KIDNEY (4) Calculus of ureterovesical junction (UVJ) Current Visit: Yes Status: Acute Assessment & Plan: - as seen on CT - US for further evaluation - NPO - IVF - Consider transfer to higher level of care 07/04 - US negative Code(s): N20.1 - CALCULUS OF URETER (5) AMS (altered mental status) Current Visit: Yes Status: Acute Assessment & Plan: - improved since admission - A& O x3 today - CT head reviewed - Neurology consulted for abnormal results on CT - Family reports no hx of Dementia or Alzheimer's - Pt has new urinary incontinence, gait changes, memory concerns, and intermittent confusion. - Will need OP f/u with neurology 07/04 - A&O x3 with intermittent confusion per staff. Code(s): R41.82 - ALTERED MENTAL STATUS, UNSPECIFIED (6) COPD (chronic obstructive pulmonary disease) Current Visit: Yes Status: Acute Assessment & Plan: -Baseline 2L - supplemental oxygen with goal spo2 88-92% -RT eval -Neb/INH -CT chest with no acute findings (7) Elevated troponin Current Visit: Yes Status: Acute Assessment & Plan: -uptrending trops 0.068, 0.082, 0.090 - EKG - denies CP - tele - Cardiology consult- no new changes at this time - Echo 04/10/24- EF 55-60% - likely demand ischemia from HTN per cardiology note. Code(s): R79.89 - OTHER SPECIFIED ABNORMAL FINDINGS OF BLOOD CHEMISTRY (8) Frequent falls Current Visit: Yes Status: Acute Assessment & Plan: -Etiology likely multifactorial including polypharmacy. No infectious source identifed as CT chest and UA are unremarkable. CTH was also unremarkable. -Fall precautions -SNF for rehab at discharge Code(s): R29.6 - REPEATED FALLS (9) HTN (hypertension) Current Visit: Yes Status: Acute Assessment & Plan: BP increased 2:2 pain - Monitor BP - Continue home meds - Hydralizine PRN - increased amlodipine to 10mg Code(s): I10 - ESSENTIAL (PRIMARY) HYPERTENSION (10) History of bladder cancer Current Visit: Yes Status: Chronic Assessment & Plan: -noted, adds complexity Code(s): Z85.51 - PERSONAL HISTORY OF MALIGNANT NEOPLASM OF BLADDER (11) Hypokalemia Current Visit: Yes Status: Acute Assessment & Plan: - K+ 3.4- replaced- trend 07/04 - K+3.1 replaced- trend recheck at 1400 Code(s): E87.6 - HYPOKALEMIA (12) Leukocytosis Current Visit: Yes Status: Acute Assessment & Plan: - improved 16.9 - 2:2 sinusitis and renal calculi? - repeat UC pending. 07/04 - WBC 13.8- improving Code(s): D72.829 - ELEVATED WHITE BLOOD CELL COUNT, UNSPECIFIED (13) Delirium Current Visit: Yes Status: Acute Assessment & Plan: - Age related in unfamiliar place. Code(s): R41.0 - DISORIENTATION, UNSPECIFIED (14) Dementia Current Visit: No Status: Chronic Assessment & Plan: - Discussed with tele- neurology - Per neurology CT shows age related changes that can contribute to confusion - Pt is an unfamiliar place and may cause delirium - Per neurology pt's is focused on pain meds and not open to further discussion. 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 (16) Femur fracture, left Current Visit: Yes Status: Acute Assessment & Plan: - As noted from last admission after fall in home - Old radiology records, ortho, and PT notes reviewed - Continue narcotic pain meds - Rehab placement today Code(s): S72.92XA - UNSP FRACTURE OF LEFT FEMUR, INIT ENCNTR FOR CLOSED FRACTURE - Discharge Discharge Date: 07/04/24 (rehab) Disposition: DC TO ANY "OTHER" GROUP HOME Condition: Stable Prescriptions: New Hydrocodone/Acetaminophen [[place] 10-325 mg] 1 tablet PO BID PRN PRN 3 Days #6 tablet MDD 2 PRN Reason: Pain Continue Multivitamin [Multi-Vitamin Daily] 1 tab PO DAILY Ferrous Sulfate 325 mg PO BID Olanzapine 5 mg [zyPREXA 5MG TABLET] 5 mg PO HS Dorzolamide HCl/Pf [Dorzolamide 2% Eye Drop] 1 drop OP BID Sertraline HCl 100 mg PO QHS Apixaban [Eliquis 5 mg Tablet] 2.5 mg PO BID Furosemide 40 mg [Lasix 40 MG] 40 mg PO BID Clonidine HCl 0.1 mg [Clonidine 0.1 mg Tablet] 0.2 mg PO TID Potassium Chloride [Klor-Con 10] 20 meq PO DAILY Metoprolol Tartrate 50 mg [Lopressor 50 MG] 75 mg PO BID Tamsulosin HCl 0.4 mg [Flomax 0.4 MG] 0.4 mg PO HS Lisinopril 10 mg [Zestril 10 MG] 20 mg PO BID Magnesium Oxide 400 mg [Mag-Ox 400] 400 mg PO DAILY Timolol Maleate/Pf [Timolol Maleate 0.5% Eye Drop] 1 drop OP BID Naloxone HCl [Narcan] 4 mg IN UD Amlodipine Besylate [Norvasc] 5 mg PO DAILY PANTOPRAZOLE 40 mg Tablet [Protonix 40MG Tablet] 40 mg PO DAILY Docusate Sodium 100 mg [Docusate Sodium 100 MG] 100 mg PO QAM cap Acetaminophen 325 mg [Tylenol 325 mg] 650 mg PO Q4H PRN PRN tablet PRN Reason: Pain, Fever, Headache Cholecalciferol (Vitamin D3) [Vitamin D] 1,000 unit PO DAILY tablet Dextromethorphan/Benzocaine [Cepacol Sore Throat-Cough Joycelyn] 1 lozenge PO Q 4HPRN PRN PRN Reason: sore throat Zinc Oxide Ointment 30 gm 1 each TOP BID Morphine Sulfate [Morphine Sulfate ER] 45 mg PO DAILY 3 Days #3 tablet MDD 1 Changed Morphine Sulfate [Morphine Sulfate ER] 30 mg PO QHS 3 Days #3 tablet MDD 1 Follow up with: MANJIT MALDONADO MD [Primary Care Provider] -
[2024-07-05 11:25] VITALS: O2SAT 95
== END 2024-07-04 15:30 ==
LOC: ED 14:34 → MED SURG 19:35
PROVIDERS: ADMIT Student in an Organized Health Care Education/Training Program; ATTEND Student in an Organized Health Care Education/Training Program
DX: R41.82 Altered mental status, unspecified (principal); K66.9 Disorder of peritoneum, unspecified; R17 Unspecified jaundice; N20.0 Calculus of kidney; N20.1 Calculus of ureter; J44.9 Chronic obstructive pulmonary disease, unspecified; R79.89 Other specified abnormal findings of blood chemistry; R29.6 Repeated falls; I10 Essential (primary) hypertension; Z85.51 Personal history of malignant neoplasm of bladder; E87.6 Hypokalemia; D72.829 Elevated white blood cell count, unspecified; F03.90 Unspecified dementia, unspecified severity, without behavioral disturbance, psychotic disturbance, mood disturbance, and anxiety; J32.0 Chronic maxillary sinusitis; S72.92XA Unspecified fracture of left femur, initial encounter for closed fracture; Z79.01 Long term (current) use of anticoagulants; Z79.899 Other long term (current) drug therapy; I48.91 Unspecified atrial fibrillation; E78.5 Hyperlipidemia, unspecified
CPT/HCPCS: 0241U; 36415; 70450; 71250; 72125; 74177; 76770; 80048; 80053; 81001; 82140; 82607; 82746; 82947; 83605; 83735; 84132; 84134; 84145; 84443; 84484; 85025; 85027; 87040; 87086; 93005; 93268; 94760; 97110; 97164; 99285; G0378; P9612; Q3014; J0360; A9270-GY

== ENCOUNTER 2024-07-26 13:46 | Observation (INO) | payer MEDICARE ==
[2024-07-26] MEDS ORDERED: DUONEB 0.5-3 MG/3 ml Neb IH ONE (14:27)
[2024-07-26 14:31] LABS: Absolute Neutrophil Ct (ANC) 4.62 x10^3/uL (1.78-5.38); BASOPHIL % 0.1 % (0.2-1.2); Basophil (Absolute #) 0.01 x10^3/uL (0.01-0.08); Eosinophil % 7.8 % (0.8-7.0); Eosinophil (Absolute #) 0.66 x10^3/uL (0.04-0.54); Hematocrit 37.1 % (40.1-51.0); Hemoglobin 11.4 g/dL (13.7-17.5); IMMATURE GRAN # 0.04 x10^3u/L (0.001-0.031); IMMATURE GRAN % 0.5 % (0.001-0.429); Mean Cell Volume 96.9 fL (79.0-92.2); Mean Corpuscular Hemoglobin 29.8 pg (25.7-32.2); Mean Corpuscular Hgb Concent. 30.7 g/dL (32.3-36.5); Mean Platelet Volume 9.2 fL (9.4-12.4); Monocyte (Absolute #) 0.93 x10^3/uL (0.30-0.82); Neutrophil % 54.6 % (34.0-67.9); Platelet Count 271 x10^3/uL (163-337); Red Blood Count 3.83 x10^6/uL (4.63-6.08); Red Cell Distribution Width 17.3 % (11.6-14.4); White Blood Count 8.5 x10^3/uL (4.23-9.07)
[2024-07-26 14:34] LABS: A-aADO2 130; ABG HEMOGLOBIN 10.9; ABG POTASSIUM 4.6 (3.5-5.1); ARTERIAL BLD GAS O2 SATURATION 96.4 % (95-100); ARTERIAL BLOOD GAS FIO2 40 %; ARTERIAL BLOOD GAS PCO2 53 mmHg (35-45); ARTERIAL BLOOD GAS PO2 89 mmHg (75-100); ARTERIAL BLOOD GAS pH 7.39 (7.35-7.45); CARBOXYHEMOGLOBIN 1.6 % THgb (0.0-6.9); HCO3- 32.1 (22-28); HGB O2 SAT 93.9 g/dF (94-100); Lactic Acid 1.1 (0.4-2.0); paO2 pAO1 0.41
[2024-07-26 14:35] LABS: ABG SITE RIGHT RADIAL
[2024-07-26] MEDS: DUONEB 0.5-3 MG/3 ml Neb IH ONE (14:40)
[2024-07-26 14:46] LABS: ALBUMIN 3.1 g/dL (3.5-5.0); ANION GAP 10.6 MEQ/L (5-15); BILIRUBIN,TOTAL 0.6 mg/dL (0.2-1.3); Calcium 8.6 mg/dL (8.4-10.2); Creatinine 1 2.36 mg/dL (0.66-1.25); EST GLOMERULAR FILTRATION RATE 25.8 ML/MIN; MAGNESIUM 1.7 mg/dL (1.6-2.3); Potassium 4.4 mmol/L (3.5-5.1); Total Protein 6.1 g/dL (6.3-8.2)
--- NOTE | 2024-07-26 15:04 | XRAY ---
Indication: Chest pain. Comparison: June 28, 2024 Portable chest now rotated/side bent. Lungs underinflated again with minimal right base subsegmental atelectasis. Heart not enlarged. Bony thorax intact again with osteopenia, degenerative changes, and bilateral shoulder arthroplasty. No new/acute findings.
[2024-07-26 15:07] LABS: INFLUENZA A NEGATIVE (NEGATIVE); INFLUENZA B NEGATIVE (NEGATIVE); RESPIRATORY SYNCTIAL VIRUS NEGATIVE (NEGATIVE); SARS-CoV-2 Xpert Express NEGATIVE (NEGATIVE)
[2024-07-26] MEDS ORDERED: Sodium Chloride 0.9% 1000 ML 1,000 ML ONE (15:12)
[2024-07-26] MEDS: Sodium Chloride 0.9% 1000 ML 1,000 ML IV SCH ×2 (15:13→21:16)
--- NOTE | 2024-07-26 15:54 | ERPHSYRPT ---
- History of Present Illness Time Seen by Provider: 07/26/24 13:58 Source: patient, family, EMS Patient Subjective Stated Complaint: weakness, not himself, chest pain Triage Nursing Assessment: Pt brought to the ER by EMS, hypotensive, hypoxic, bradycardic, rates chest pain as 8/10, appears lethargic and weak, pt reports not really eating for the past 2-3 days, pulses normal, skin n/c/d, placed on 6L NC and oxygen got to 93% Physician History: 89 years old male with multiple medical problems including hypertension, hyperlipidemia, GERD, chronic respiratory failure on 2 L oxygen, chronic pain on pain medications, atrial fibrillation on Eliquis, congestive heart failure is brought in the ER by EMS with complaints of generalized weakness fatigue and tiredness for the last 2 days. Patient reports decreased oral intake and urine output. He feels no energy to do his routine activities. Patient is also complaining of substernal chest pain since morning 8/10 intensity. Has difficulty breathing at his baseline which is a little worse with chest pain. Patient is taking Eliquis. EKG showed some questionable elevation in V2, I have discussed with Dr. Moreland on-call interventional cardiology for regional, shared EKG, do not think patient has STEMI. Patient refused to have aspirin. He is given breathing treatment. Allergies/Adverse Reactions: No Known Allergies Allergy (Verified 07/26/24 14:07) Home Medications: Ferrous Sulfate 325 mg PO BID 02/20/22 [History] Multivitamin [Multi-Vitamin Daily] 1 tab PO DAILY 02/20/22 [History] Olanzapine 5 mg [zyPREXA 5MG TABLET] 5 mg PO HS 02/20/22 [History] Dorzolamide HCl/Pf [Dorzolamide 2% Eye Drop] 1 drop OP BID 05/21/22 [History] Apixaban [Eliquis 5 mg Tablet] 2.5 mg PO BID 06/02/22 [History] Clonidine HCl 0.1 mg [Clonidine 0.1 mg Tablet] 0.2 mg PO TID 06/02/22 [History] Furosemide 40 mg [Lasix 40 MG] 40 mg PO BID 06/02/22 [History] Potassium Chloride [Klor-Con 10] 20 meq PO DAILY 06/02/22 [History] Sertraline HCl 100 mg PO QHS 06/02/22 [History] Tamsulosin HCl 0.4 mg [Flomax 0.4 MG] 0.4 mg PO HS 06/02/22 [History] Lisinopril 10 mg [Zestril 10 MG] 20 mg PO BID 10/30/22 [History] Magnesium Oxide 400 mg [Mag-Ox 400] 400 mg PO DAILY 12/02/22 [History] Timolol Maleate/Pf [Timolol Maleate 0.5% Eye Drop] 1 drop OP BID 12/03/22 [History] Naloxone HCl [Narcan] 4 mg IN UD 05/25/23 [History] PANTOPRAZOLE 40 mg Tablet [Protonix 40MG Tablet] 40 mg PO DAILY 07/01/23 [History] Dextromethorphan/Benzocaine [Cepacol Sore Throat-Cough Joycelyn] 1 lozenge PO Q4HPRN PRN 07/01/24 [History] Zinc Oxide Ointment 30 gm 1 each TOP BID 07/01/24 [History] Hx Tetanus, Diphtheria Vaccination/Date Given: No Hx Influenza Vaccination/Date Given: No Hx Pneumococcal Vaccination/Date Given: No Travel Risk - International Travel Have you traveled outside of the country in past 3 weeks: No - Emerging Infectious Disease Are you exhibiting symptoms associated with any current EIDs: Yes Symptoms: Shortness of Breath - Review of Systems Constitutional: Fatigue, Lethargy Eyes: No Symptoms Ears, Nose, & Throat: No Symptoms Respiratory: Cough Cardiac: Chest Pain Abdominal/Gastrointestinal: No Symptoms Musculoskeletal: Arthralgias Skin: No Symptoms Endocrine: No Symptoms Hematologic/Lymphatic: Easy Bleeding - Past Medical History Pertinent Past Medical History: Yes Neurological History: Migraines ENT History: Cataracts, Glaucoma Cardiac History: Hypertension Respiratory History: COPD Endocrine Medical History: No Pertinent History Musculoskeletal History: Arthritis, Osteoarthritis GI Medical History: GERD History: Bladder Cancer Psycho-Social History: Depression Male Reproductive Disorders: No Pertinent History Other Medical History: bladder cancer 2012. home oxygen at bedtime - Past Surgical History Past Surgical History: Yes Neuro Surgical History: No Pertinent History Cardiac: No Pertinent History Respiratory: No Pertinent History Gastrointestinal: No Pertinent History Genitourinary: No Pertinent History Musculoskeletal: Joint Replacement, Orthopedic Surgery Male Surgical History: No Pertinent History Other Surgical History: Bilateral hip replacement, Bilateral shoulder replacement, bladder biopsy Significant Family History: no pertinent family hx - Social History Smoking Status: Never smoker Exposure to second hand smoke: No Drug Use: none Patient Lives Alone: No - Social Determinants of Health Will the patient participate in the screening: Yes Do you worry about a steady place to live?: No Do you have any problems with any of the following?: No known problems In the past 12 months,have you had to go without utilities?: No Transportation Issues: No Has anyone in your support network made you feel unsafe?: No Have you or anyone in your house had to go without enough: No - Nursing Vital Signs Nursing Vital Signs: Initial Vital Signs Temperature 97.7 F 07/26/24 13:49 Pulse Rate 57 L 07/26/24 13:49 Respiratory Rate 18 07/26/24 13:49 Blood Pressure 89/54 07/26/24 13:49 O2 Sat by Pulse Oximetry 85 L 07/26/24 13:49 Pain Scale Pain Intensity 8 - Physical Exam General Appearance: lethargy Eye Exam: PERRL/EOMI Ears, Nose, Throat Exam: normal ENT inspection Neck Exam: normal inspection, full range of motion Respiratory Exam: rhonchi Cardiovascular Exam: regular rate/rhythm, normal heart sounds Gastrointestinal/Abdomen Exam: soft, normal bowel sounds, No tenderness Back Exam: normal inspection Extremity Exam: pelvis stable Neurologic Exam: alert, oriented x 3, cooperative, solid fiber paster operator II-XII nml as tested Skin Exam: normal color SpO2 Interpretation: O2 applied SpO2: 94 O2 Delivery: Nasal Cannula - Course EKG Interpreted by Me: RATE (58), Sinus Migel, NORMAL AXIS, Q-wave, Non-specific ST Changes, Other (Prolonged PA interval) Ordered Tests: Active Orders 24 hr Category Date Time Status Quality Assurance Technician STAT Care 07/26/24 14:19 Active EKG-ER Only STAT Care 07/26/24 14:18 Active IV Insertion STAT Care 07/26/24 14:18 Active IV Insertion-2nd Peripheral STAT Care 07/26/24 14:20 Active Oxygen-ED Only Nasal Cannula 4 lpm Care 07/26/24 14:18 Active CHEST 1 VIEW (PORTABLE) Stat Exams 07/26/24 14:19 Completed ARTERIAL BLOOD GASES Stat Lab 07/26/24 14:28 Completed BLOOD CULTURE Stat Lab 07/26/24 14:17 Received CBC W DIFF Stat Lab 07/26/24 14:10 Completed CMP Stat Lab 07/26/24 14:10 Completed Lactic Acid Stat Lab 07/26/24 14:28 Completed MAGNESIUM Stat Lab 07/26/24 14:10 Completed NT PRO BNPII Stat Lab 07/26/24 14:10 Completed TROPONIN Q4H Lab 07/26/24 14:10 Completed TROPONIN Q4H Lab 07/26/24 18:30 Ordered TROPONIN Q4H Lab 07/26/24 22:30 Ordered UA W/RFX UR CULTURE Stat Lab 07/26/24 14:19 Ordered Respiratory Therapy Assessment DAILY RT 07/26/24 14:41 Active Transfer Order Routine Transfer 07/26/24 Ordered Medication Summary Generic Name Dose Route Start Last Admin Trade Name Freq PRN Reason Stop Dose Admin Sodium Chloride 1,000 mls @ 999 mls/hr 07/26/24 15:15 07/26/24 15:13 Sodium Chloride 0.9% 1000 Ml IV 07/26/24 16:15 999 mls/hr .Q1H1M FERNANDO Administration Discontinued Medications Generic Name Dose Route Start Last Admin Trade Name Freq PRN Reason Stop Dose Admin Albuterol/Ipratropium 3 ml 07/26/24 14:18 07/26/24 14:40 Ipratropium/Albuterol Sulfate 3 Ml Ampul.Neb IH 07/26/24 14:19 3 ml STAT ONE Administration Albuterol/Ipratropium Confirm 07/26/24 14:27 Ipratropium/Albuterol Sulfate 3 Ml Ampul.Neb Administered 07/26/24 14:28 Dose 3 ml IH .STK-MED ONE Lab/Rad Data: Laboratory Result Diagrams 07/26/24 14:10 07/26/24 14:10 Laboratory Results 07/26/24 07/26/24 07/26/24 Range/Units 14:28 14:17 14:10 WBC (4.23-9.07) x10^3/uL RBC (4.63-6.08) x10^6/uL Hgb (13.7-17.5) g/dL Hct (40.1-51.0) % MCV (79.0-92.2) fL MCH (25.7-32.2) pg MCHC (32.3-36.5) g/dL RDW (11.6-14.4) % Plt Count (163-337) x10^3/uL MPV (9.4-12.4) fL Gran % (34.0-67.9) % Immature Gran % (Auto) (0.001-0.429) % Nucleat RBC Rel Count (0.00-0.2) % Eos # (Auto) (0.04-0.54) x10^3/uL Immature Gran # (Auto) (0.001-0.031) x10^3u/L Absolute Lymphs (auto) (1.32-3.57) x10^3/uL Absolute Monos (auto) (0.30-0.82) x10^3/uL Absolute Nucleated RBC (0.00-0.012) x10^3u/L Lymphocytes % (21.8-53.1) % Monocytes % (5.3-12.2) % Eosinophils % (0.8-7.0) % Basophils % (0.2-1.2) % Absolute Granulocytes (1.78-5.38) x10^3/uL Basophils # (0.01-0.08) x10^3/uL Puncture Site RIGHT RADIAL pCO2 53 H (35-45) mmHg pO2 89 (75-100) mmHg Base Excess 6.0 H (-2.0-2.0) O2 Saturation 93.9 L (94-100) g/dF ABG pH 7.39 (7.35-7.45) ABG HCO3 32.1 H* (22-28) ABG O2 Sat (Measured) 96.4 (95-100) % Luis Enrique Test NOT APPLICABLE A-a Gradient 130 a/A Ratio 0.41 Hemoglobin 10.9 Carboxyhemoglobin 1.6 (0.0-6.9) % THgb Methemoglobin 1.0 L (1.4-1.5) % Temperature 37.0 C POC O2 Flow Rate 40 % Sodium (135-145) mmol/L Potassium 4.6 (3.5-5.1) mmol/L Chloride (98-107) mmol/L Carbon Dioxide (22-30) mmol/L Anion Gap (5-15) MEQ/L BUN (9-20) mg/dL Creatinine (0.66-1.25) mg/dL Estimated GFR ML/MIN Glucose (74-106) mg/dL Lactic Acid 1.1 (0.4-2.0) Calcium (8.4-10.2) mg/dL Magnesium (1.6-2.3) mg/dL Total Bilirubin (0.2-1.3) mg/dL AST (17-59) U/L ALT (0-50) U/L Alkaline Phosphatase (38-126) U/L Troponin I 0.074 H* (0.000-0.033) ng/mL NT-Pro-B Natriuret Pep (<300) pg/mL Serum Total Protein (6.3-8.2) g/dL Albumin (3.5-5.0) g/dL Influenza Type A Ag NEGATIVE (NEGATIVE) Influenza Type B Ag NEGATIVE (NEGATIVE) RSV (PCR) NEGATIVE (NEGATIVE) SARS-CoV-2 (PCR) NEGATIVE (NEGATIVE) 07/26/24 07/26/24 Range/Units 14:10 14:10 WBC 8.5 (4.23-9.07) x10^3/uL RBC 3.83 L (4.63-6.08) x10^6/uL Hgb 11.4 L (13.7-17.5) g/dL Hct 37.1 L (40.1-51.0) % MCV 96.9 H (79.0-92.2) fL MCH 29.8 (25.7-32.2) pg MCHC 30.7 L (32.3-36.5) g/dL RDW 17.3 H (11.6-14.4) % Plt Count 271 (163-337) x10^3/uL MPV 9.2 L (9.4-12.4) fL Gran % 54.6 (34.0-67.9) % Immature Gran % (Auto) 0.5 H (0.001-0.429) % Nucleat RBC Rel Count 0.0 (0.00-0.2) % Eos # (Auto) 0.66 H (0.04-0.54) x10^3/uL Immature Gran # (Auto) 0.04 H (0.001-0.031) x10^3u/L Absolute Lymphs (auto) 2.20 (1.32-3.57) x10^3/uL Absolute Monos (auto) 0.93 H (0.30-0.82) x10^3/uL Absolute Nucleated RBC 0.00 (0.00-0.012) x10^3u/L Lymphocytes % 26.0 (21.8-53.1) % Monocytes % 11.0 (5.3-12.2) % Eosinophils % 7.8 H (0.8-7.0) % Basophils % 0.1 L (0.2-1.2) % Absolute Granulocytes 4.62 (1.78-5.38) x10^3/uL Basophils # 0.01 (0.01-0.08) x10^3/uL Puncture Site pCO2 (35-45) mmHg pO2 (75-100) mmHg Base Excess (-2.0-2.0) O2 Saturation (94-100) g/dF ABG pH (7.35-7.45) ABG HCO3 (22-28) ABG O2 Sat (Measured) (95-100) % Luis Enrique Test A-a Gradient a/A Ratio Hemoglobin Carboxyhemoglobin (0.0-6.9) % THgb Methemoglobin (1.4-1.5) % Temperature C POC O2 Flow Rate % Sodium 136 (135-145) mmol/L Potassium 4.4 (3.5-5.1) mmol/L Chloride 99 (98-107) mmol/L Carbon Dioxide 31 H (22-30) mmol/L Anion Gap 10.6 (5-15) MEQ/L BUN 37 H (9-20) mg/dL Creatinine 2.36 H (0.66-1.25) mg/dL Estimated GFR 25.8 ML/MIN Glucose 106 (74-106) mg/dL Lactic Acid (0.4-2.0) Calcium 8.6 (8.4-10.2) mg/dL Magnesium 1.7 (1.6-2.3) mg/dL Total Bilirubin 0.60 (0.2-1.3) mg/dL AST 24 (17-59) U/L ALT 18 (0-50) U/L Alkaline Phosphatase 263 H (38-126) U/L Troponin I (0.000-0.033) ng/mL NT-Pro-B Natriuret Pep 1220 (<300) pg/mL Serum Total Protein 6.1 L (6.3-8.2) g/dL Albumin 3.1 L (3.5-5.0) g/dL Influenza Type A Ag (NEGATIVE) Influenza Type B Ag (NEGATIVE) RSV (PCR) (NEGATIVE) SARS-CoV-2 (PCR) (NEGATIVE) - Progress Progress: improved, re-examined Progress Note: 07/26/24 16:14 89 years old is evaluated in the ER for generalized weakness fatigue and tiredness along with decreased oral intake. Patient was complaining of chest pain on presentation, EKG showed some questionable changes in the V2 lead, I have shared with cardiology who do not think patient has STEMI. Patient was also having low blood pressure, given fluid bolus and it improved and low 100s. Initial troponin of 0.07 but patient has a acute renal failure with a creatin ine of 2.36 with a baseline around 0.8. I believe elevated troponin is possibly secondary to renal failure and also has a chronic troponin leak. Chest x-ray is negative for any acute cardiopulmonary findings. Patient does not seem to be in CHF exacerbation at all. Initially patient was on 5 L oxygen, gradually weaned down to 2 L oxygen with saturation in the low 90s. Patient is feeling much better on reevaluation his chest pain is improved Discussed the results of workup with patient and family and plan of admission which they understand and agree.. Discussed with Dr.: Other (Dr. Osborn hospitalist) Will see patient in: hospital (observation) Counseled pt/family regarding: lab results, diagnosis, rad results Medical Desision Making - Independent Historian Additional History obtained from: Spouse, Pattern Worker/EMT - Discussion of managment Care discussed with:: hospitalist Reviewed:: Test results Agreed on:: Treatment plan, place in obs Will see patient: in hospital - Diagnostic Testing Diagnostic test were ordered, analyzed, and reviewed by me: Yes Radiological Interpretation: Reviewed by me - Risk of complications The pt has a mod risk of morbidity or mortality based on: Need for prescription drug management The pt has a high risk of morbidity or mortality based on: Decision regarding hospitilization or escalation of hosp level of care - Departure Departure Disposition: Observation Clinical Impression: Acute renal failure, Elevated troponin, Generalized weakness Condition: Stable Critical Care Time: No Referrals: MANJIT MALDONADO MD [Primary Care Provider] - Follow up/PCP as directed
[2024-07-26 17:43] LABS: Appearance Cloudy (Clear); Bacteria None Seen /HPF (None Seen); Bilirubin Negative (Negative); Blood Negative (Negative); Glucose, Urine Negative (Negative); Ketones Trace (Negative); Leukocyte Esterase Small (Negative); Nitrite Negative (Negative); Protein,Urine Dip Negative (Negative); Specific Gravity 1.015 (1.005-1.030); Urobilinogen 0.2 mg/dL (0.2)
[2024-07-26 17:46] LABS: Epithelial Cells Rare /HPF (None Seen); Hyaline Casts 0-2 /LPF (0-2); RBC 0-2 /HPF (0-5)
--- NOTE | 2024-07-26 20:11 | PCM.HP ---
History of Present Illness - Chief Complaint Chief Complaint: -Decressed Urine out put Date: 07/26/24 History of Present Illness: 89 years old very pleasant male with past medical history significant for hypertension, chronic active pulmonary disease on 2 L oxygen at home paroxysmal atrial fibrillation, chronic congestive failure, chronic pain syndrome, GERD, anxiety/mood disorder who brought by for complaint of generalized weakness that was noticed since yesterday, noted that pt having decreased urine out put+ decreased urine out put,He is also having no energy and staying most of the time in the bed. He also getting some shortness of breath as well. No N/V/D, no cough/ congestion/fever noted. He is otherwise compliant with his meds. In the ER that showed blood pressure was 89/54 he was afebrile with pulse of 57. As for his blood workup concern white cell count 8.5 hemoglobin 11.4 platelets 271. BMP remarkable for creatinine of 2.36 bicarb 31 lactate was less than 2. Blood gas was not very impressive except for mild elevation in CO2 around 53. Urine was positive for trace leukocyte esterase. BNP was 1220 troponin slightly elevated. Chest x-ray was completely unremarkable. Patient was given 1 L fluid with improvement in his blood pressure and he received 1 breathing therapy that trended down his oxygen requirement for 550 to 2 L. He was looking much more comfortable and less distressful. He is admitted for further care - Review of Systems All Other Systems: Reviewed and Negative (14 systems reviewed and marked -ve ) Medications & Allergies Home Medications: Home Medication List Ferrous Sulfate 325 mg PO BID 02/20/22 [History Confirmed 07/26/24] Multivitamin [Multi-Vitamin Daily] 1 tab PO DAILY 02/20/22 [History Confirmed 07/26/24] Olanzapine 5 mg [zyPREXA 5MG TABLET] 2.5 mg PO HS 02/20/22 [History Confirmed 07/26/24] Dorzolamide HCl/Pf [Dorzolamide 2% Eye Drop] 1 drop OP BID 05/21/22 [History Confirmed 07/26/24] Apixaban [Eliquis 5 mg Tablet] 2.5 mg PO BID 06/02/22 [History Confirmed 07/26/24] Furosemide 40 mg [Lasix 40 MG] 40 mg PO BID 06/02/22 [History Confirmed 07/26/24] Potassium Chloride [Klor-Con 10] 20 meq PO DAILY 06/02/22 [History Confirmed 07/26/24] Sertraline HCl 100 mg PO DAILY 06/02/22 [History Confirmed 07/26/24] Tamsulosin HCl 0.4 mg [Flomax 0.4 MG] 0.4 mg PO HS 06/02/22 [History Confirmed 07/26/24] Lisinopril 10 mg [Zestril 10 MG] 20 mg PO BID 10/30/22 [History Confirmed 07/26/24] Magnesium Oxide 400 mg [Mag-Ox 400] 400 mg PO DAILY 12/02/22 [History Confirmed 07/26/24] Timolol Maleate/Pf [Timolol Maleate 0.5% Eye Drop] 1 drop OP BID 12/03/22 [History Confirmed 07/26/24] PANTOPRAZOLE 40 mg Tablet [Protonix 40MG Tablet] 40 mg PO DAILY 07/01/23 [History Confirmed 07/26/24] Acetaminophen 325 mg [Tylenol 325 mg] 650 mg PO Q4H PRN PRN tablet 06/28/24 [Rx Confirmed 07/26/24] Dextromethorphan/Benzocaine [Cepacol Sore Throat-Cough Joycelyn] 1 lozenge PO Q4HPRN PRN 07/01/24 [History Confirmed 07/26/24] Zinc Oxide Ointment 30 gm 1 each TOP BID 07/01/24 [History Confirmed 07/26/24] Amlodipine Besylate 10 mg PO DAILY 30 Days #30 tablet 07/04/24 [Rx Confirmed 07/26/24] Metoprolol Tartrate [Lopressor] 100 mg PO BID 30 Days #60 tablet 07/04/24 [Rx Confirmed 07/26/24] Cholecalciferol (Vitamin D3) [Vitamin D] 1 tab PO DAILY 07/26/24 [History Confirmed 07/26/24] Docusate Sodium 100 mg [Docusate Sodium 100 MG] 100 mg PO DAILY 07/26/24 [History Confirmed 07/26/24] Hydrocodone/Acetaminophen [[place] 10-325 mg] 1 tablet PO Q12H PRN 07/26/24 [History Confirmed 07/26/24] Morphine Sulfate [Morphine Sulfate ER] 30 mg PO BID MDD 1 07/26/24 [History Confirmed 07/26/24] Naloxone HCl 2Mg/2 ml [Narcan 2 mg/2 ml] 4 mg IM UD PRN 07/26/24 [History Confirmed 07/26/24] Allergies/Adverse Reactions: Allergies Allergy/AdvReac Type Severity Reaction Status Date / Time No Known Allergies Allergy Verified 07/26/24 14:07 - Past Medical History Past Medical History: Yes Neurological History: Migraines ENT History: Cataracts, Glaucoma Cardiac History: Hypertension Respiratory History: COPD Endocrine Medical History: No Pertinent History Musculoskelatal History: Arthritis, Osteoarthritis GI Medical History: GERD History: Bladder Cancer Pyscho-Social History: Depression Male Reproductive Disorders: No Pertinent History Comment: bladder cancer 2011. home oxygen at bedtime - Past Surgical History Past Surgical History: Yes Neuro Surgical History: No Pertinent History Cardiac History: No Pertinent History Respiratory Surgery: No Pertinent History GI Surgical History: No Pertinent History Genitourinary Surgical Hx: No Pertinent History Musculskeletal Surgical Hx: Joint Replacement, Orthopedic Surgery Male Surgical History: No Pertinent History Other Surgical History: Bilateral hip replacement, Bilateral shoulder replacement, bladder biopsy Significant Family History: no pertinent family hx - Social History Smoking Status: Never smoker Exposure to second hand smoke: No Alcohol: None Drug Use: none - Social Determinants of Health Will the patient participate in the screening: Yes Do you worry about a steady place to live?: No Do you have any problems with any of the following?: No known problems In the past 12 months,have you had to go without utilities?: No Have you or anyone in your house had to go without enough: No Transportation Issues: No Has anyone in your support network made you feel unsafe?: No Does the patient want assistance with any of the above?: No - Physical Exam Vital Signs: Vital Signs - 24 hr Temp Pulse Resp BP BP Pulse Ox 07/26/24 18:16 96.0 F 60 16 114/57 92 L 07/26/24 16:18 94 L 07/26/24 16:00 101/50 07/26/24 15:30 56 L 14 97/56 94 L 07/26/24 15:16 59 L 17 102/51 68 L 07/26/24 15:04 58 L 15 76/47 91 L 07/26/24 15:00 59 L 9 L 83/43 92 L 07/26/24 14:42 60 13 94 L 07/26/24 14:30 59 L 12 91/48 89 L 07/26/24 13:49 97.7 F 57 L 18 89/54 85 L Wound Assessment: Skin/Wound Assessment Wound/Incision Assessment Start: 07/26/24 18:13 Text: Status: Active Freq: Q6H Protocol: Document 07/26/24 18:13 RB (Rec: 07/26/24 18:54 RB [id number]) Wound/Incision Assessment Upper Posterior Medial Buttock Wound Assessment Admission Wound Type SHEARING Wound Stage Stage II Drainage Amount None Drainage Odor None/Absent Wound Bed Greatest Portion Red (Granulation),Yellow ( [place]) Surrounding Tissue Purple Primary Dressing MEPILEX Comment SHEARING NOTED TO BILATERAL BUTTOCKS, Wound Photo Photo Taken No Wound/Incision Assessment Start: 07/26/24 18:45 Text: Status: Active Freq: Protocol: Document 07/26/24 18:45 RB (Rec: 07/26/24 18:50 RB [id number]) Wound/Incision Assessment Upper Posterior Medial Buttock Wound Assessment Admission Wound Type SHEARING Wound Stage Stage II Drainage Amount None Drainage Odor None/Absent Wound Bed Greatest Portion Red (Granulation),Yellow ( [place]) Surrounding Tissue Purple Primary Dressing MEPILEX Comment SHEARING NOTED TO BILATERAL BUTTOCKS, Wound Photo Photo Taken Yes Date: 07/26/24 Time: 18:49 Additional Findings: 07/26/24 20:09 HEENT Very old aged, Chronically ill appearing, on 2 liters oxygen NECK Supple,no thyromegaly, CVS S1+S2 + 0, no murmers RESP Bilateral equal air entry without Crepts/Wheezes heard GIT Soft non tender,non distended Skin, No rah, no Bruises LEGS No Edema PSYCH Normal,mood, judgement and insight NEURO AOX3, no focal deficit Results - Labs Lab/Micro Results: Lab Results-Last 24 Hours 07/26/24 07/26/24 07/26/24 Range/Units 14:10 14:10 14:10 WBC 8.5 (4.23-9.07) x10^3/uL RBC 3.83 L (4.63-6.08) x10^6/uL Hgb 11.4 L (13.7-17.5) g/dL Hct 37.1 L (40.1-51.0) % MCV 96.9 H (79.0-92.2) fL MCH 29.8 (25.7-32.2) pg MCHC 30.7 L (32.3-36.5) g/dL RDW 17.3 H (11.6-14.4) % Plt Count 271 (163-337) x10^3/uL MPV 9.2 L (9.4-12.4) fL Gran % 54.6 (34.0-67.9) % Immature Gran % (Auto) 0.5 H (0.001-0.429) % Nucleat RBC Rel Count 0.0 (0.00-0.2) % Eos # (Auto) 0.66 H (0.04-0.54) x10^3/uL Immature Gran # (Auto) 0.04 H (0.001-0.031) x10^3u/L Absolute Lymphs (auto) 2.20 (1.32-3.57) x10^3/uL Absolute Monos (auto) 0.93 H (0.30-0.82) x10^3/uL Absolute Nucleated RBC 0.00 (0.00-0.012) x10^3u/L Lymphocytes % 26.0 (21.8-53.1) % Monocytes % 11.0 (5.3-12.2) % Eosinophils % 7.8 H (0.8-7.0) % Basophils % 0.1 L (0.2-1.2) % Absolute Granulocytes 4.62 (1.78-5.38) x10^3/uL Basophils # 0.01 (0.01-0.08) x10^3/uL Puncture Site pCO2 (35-45) mmHg pO2 (75-100) mmHg Base Excess (-2.0-2.0) O2 Saturation (94-100) g/dF ABG pH (7.35-7.45) ABG HCO3 (22-28) ABG O2 Sat (Measured) (95-100) % Luis Enrique Test A-a Gradient a/A Ratio Hemoglobin Carboxyhemoglobin (0.0-6.9) % THgb Methemoglobin (1.4-1.5) % Temperature C POC O2 Flow Rate % Sodium 136 (135-145) mmol/L Potassium 4.4 (3.5-5.1) mmol/L Chloride 99 (98-107) mmol/L Carbon Dioxide 31 H (22-30) mmol/L Anion Gap 10.6 (5-15) MEQ/L BUN 37 H (9-20) mg/dL Creatinine 2.36 H (0.66-1.25) mg/dL Estimated GFR 25.8 ML/MIN Glucose 106 (74-106) mg/dL Lactic Acid (0.4-2.0) Calcium 8.6 (8.4-10.2) mg/dL Magnesium 1.7 (1.6-2.3) mg/dL Total Bilirubin 0.60 (0.2-1.3) mg/dL AST 24 (17-59) U/L ALT 18 (0-50) U/L Alkaline Phosphatase 263 H (38-126) U/L Troponin I 0.074 H* (0.000-0.033) ng/mL NT-Pro-B Natriuret Pep 1220 (<300) pg/mL Serum Total Protein 6.1 L (6.3-8.2) g/dL Albumin 3.1 L (3.5-5.0) g/dL Urine Color (Yellow) Urine Appearance (Clear) Urine pH (4.6-8.0) Ur Specific [place] (1.005-1.030) Urine Protein (Negative) Urine Glucose (UA) (Negative) mg/dL Urine Ketones (Negative) Urine Blood (Negative) Urine Nitrite (Negative) Urine Bilirubin (Negative) Urine Urobilinogen (0.2) mg/dL Ur Leukocyte Esterase (Negative) U Hyaline Cast (Auto) (0-2) /LPF Urine Microscopic RBC (0-5) /HPF Urine Microscopic WBC (0-5) /HPF Ur Epithelial Cells (None Seen) /HPF Uric Acid Crystals (None Seen) /HPF Urine Bacteria (None Seen) /HPF Urine Culture Reflexed (NO) Influenza Type A Ag (NEGATIVE) Influenza Type B Ag (NEGATIVE) RSV (PCR) (NEGATIVE) SARS-CoV-2 (PCR) (NEGATIVE) 07/26/24 07/26/24 07/26/24 Range/Units 14:17 14:28 17:24 WBC (4.23-9.07) x10^3/uL RBC (4.63-6.08) x10^6/uL Hgb (13.7-17.5) g/dL Hct (40.1-51.0) % MCV (79.0-92.2) fL MCH (25.7-32.2) pg MCHC (32.3-36.5) g/dL RDW (11.6-14.4) % Plt Count (163-337) x10^3/uL MPV (9.4-12.4) fL Gran % (34.0-67.9) % Immature Gran % (Auto) (0.001-0.429) % Nucleat RBC Rel Count (0.00-0.2) % Eos # (Auto) (0.04-0.54) x10^3/uL Immature Gran # (Auto) (0.001-0.031) x10^3u/L Absolute Lymphs (auto) (1.32-3.57) x10^3/uL Absolute Monos (auto) (0.30-0.82) x10^3/uL Absolute Nucleated RBC (0.00-0.012) x10^3u/L Lymphocytes % (21.8-53.1) % Monocytes % (5.3-12.2) % Eosinophils % (0.8-7.0) % Basophils % (0.2-1.2) % Absolute Granulocytes (1.78-5.38) x10^3/uL Basophils # (0.01-0.08) x10^3/uL Puncture Site RIGHT RADIAL pCO2 53 H (35-45) mmHg pO2 89 (75-100) mmHg Base Excess 6.0 H (-2.0-2.0) O2 Saturation 93.9 L (94-100) g/dF ABG pH 7.39 (7.35-7.45) ABG HCO3 32.1 H* (22-28) ABG O2 Sat (Measured) 96.4 (95-100) % Luis Enrique Test NOT APPLICABLE A-a Gradient 130 a/A Ratio 0.41 Hemoglobin 10.9 Carboxyhemoglobin 1.6 (0.0-6.9) % THgb Methemoglobin 1.0 L (1.4-1.5) % Temperature 37.0 C POC O2 Flow Rate 40 % Sodium (135-145) mmol/L Potassium 4.6 (3.5-5.1) mmol/L Chloride (98-107) mmol/L Carbon Dioxide (22-30) mmol/L Anion Gap (5-15) MEQ/L BUN (9-20) mg/dL Creatinine (0.66-1.25) mg/dL Estimated GFR ML/MIN Glucose (74-106) mg/dL Lactic Acid 1.1 (0.4-2.0) Calcium (8.4-10.2) mg/dL Magnesium (1.6-2.3) mg/dL Total Bilirubin (0.2-1.3) mg/dL AST (17-59) U/L ALT (0-50) U/L Alkaline Phosphatase (38-126) U/L Troponin I (0.000-0.033) ng/mL NT-Pro-B Natriuret Pep (<300) pg/mL Serum Total Protein (6.3-8.2) g/dL Albumin (3.5-5.0) g/dL Urine Color Dark Yellow (Yellow) Urine Appearance Cloudy A (Clear) Urine pH 5.0 (4.6-8.0) Ur Specific [place] 1.015 (1.005-1.030) Urine Protein Negative (Negative) Urine Glucose (UA) Negative (Negative) mg/dL Urine Ketones Trace A (Negative) Urine Blood Negative (Negative) Urine Nitrite Negative (Negative) Urine Bilirubin Negative (Negative) Urine Urobilinogen 0.2 (0.2) mg/dL Ur Leukocyte Esterase Small A (Negative) U Hyaline Cast (Auto) 0-2 (0-2) /LPF Urine Microscopic RBC 0-2 (0-5) /HPF Urine Microscopic WBC 3-5 (0-5) /HPF Ur Epithelial Cells Rare (None Seen) /HPF Uric Acid Crystals 6-10 A (None Seen) /HPF Urine Bacteria None Seen (None Seen) /HPF Urine Culture Reflexed NO (NO) Influenza Type A Ag NEGATIVE (NEGATIVE) Influenza Type B Ag NEGATIVE (NEGATIVE) RSV (PCR) NEGATIVE (NEGATIVE) SARS-CoV-2 (PCR) NEGATIVE (NEGATIVE) 12/11/24 Range/Units 18:50 WBC (4.23-9.07) x10^3/uL RBC (4.63-6.08) x10^6/uL Hgb (13.7-17.5) g/dL Hct (40.1-51.0) % MCV (79.0-92.2) fL MCH (25.7-32.2) pg MCHC (32.3-36.5) g/dL RDW (11.6-14.4) % Plt Count (163-337) x10^3/uL MPV (9.4-12.4) fL Gran % (34.0-67.9) % Immature Gran % (Auto) (0.001-0.429) % Nucleat RBC Rel Count (0.00-0.2) % Eos # (Auto) (0.04-0.54) x10^3/uL Immature Gran # (Auto) (0.001-0.031) x10^3u/L Absolute Lymphs (auto) (1.32-3.57) x10^3/uL Absolute Monos (auto) (0.30-0.82) x10^3/uL Absolute Nucleated RBC (0.00-0.012) x10^3u/L Lymphocytes % (21.8-53.1) % Monocytes % (5.3-12.2) % Eosinophils % (0.8-7.0) % Basophils % (0.2-1.2) % Absolute Granulocytes (1.78-5.38) x10^3/uL Basophils # (0.01-0.08) x10^3/uL Puncture Site pCO2 (35-45) mmHg pO2 (75-100) mmHg Base Excess (-2.0-2.0) O2 Saturation (94-100) g/dF ABG pH (7.35-7.45) ABG HCO3 (22-28) ABG O2 Sat (Measured) (95-100) % Luis Enrique Test A-a Gradient a/A Ratio Hemoglobin Carboxyhemoglobin (0.0-6.9) % THgb Methemoglobin (1.4-1.5) % Temperature C POC O2 Flow Rate % Sodium (135-145) mmol/L Potassium (3.5-5.1) mmol/L Chloride (98-107) mmol/L Carbon Dioxide (22-30) mmol/L Anion Gap (5-15) MEQ/L BUN (9-20) mg/dL Creatinine (0.66-1.25) mg/dL Estimated GFR ML/MIN Glucose (74-106) mg/dL Lactic Acid (0.4-2.0) Calcium (8.4-10.2) mg/dL Magnesium (1.6-2.3) mg/dL Total Bilirubin (0.2-1.3) mg/dL AST (17-59) U/L ALT (0-50) U/L Alkaline Phosphatase (38-126) U/L Troponin I 0.061 H* (0.000-0.033) ng/mL NT-Pro-B Natriuret Pep (<300) pg/mL Serum Total Protein (6.3-8.2) g/dL Albumin (3.5-5.0) g/dL Urine Color (Yellow) Urine Appearance (Clear) Urine pH (4.6-8.0) Ur Specific [place] (1.005-1.030) Urine Protein (Negative) Urine Glucose (UA) (Negative) mg/dL Urine Ketones (Negative) Urine Blood (Negative) Urine Nitrite (Negative) Urine Bilirubin (Negative) Urine Urobilinogen (0.2) mg/dL Ur Leukocyte Esterase (Negative) U Hyaline Cast (Auto) (0-2) /LPF Urine Microscopic RBC (0-5) /HPF Urine Microscopic WBC (0-5) /HPF Ur Epithelial Cells (None Seen) /HPF Uric Acid Crystals (None Seen) /HPF Urine Bacteria (None Seen) /HPF Urine Culture Reflexed (NO) Influenza Type A Ag (NEGATIVE) Influenza Type B Ag (NEGATIVE) RSV (PCR) (NEGATIVE) SARS-CoV-2 (PCR) (NEGATIVE) - Radiology Impressions Radiology Exams & Impressions: Radiology Procedures Category Date Time Status CHEST 1 VIEW (PORTABLE) Stat Exams 07/26/24 14:19 Completed - Other Procedures and Tests Respiratory Therapy 07/26/24 18:03 Oxygen Nasal Cannula 2 lpm Respiratory Therapy Consult ONCE Assessment/Plan (1) Acute renal failure Current Visit: Yes Status: Acute (2) Generalized weakness Current Visit: Yes Status: Acute Code(s): R53.1 - WEAKNESS (3) COPD (chronic obstructive pulmonary disease) Current Visit: No Status: Acute (4) AMS (altered mental status) Current Visit: No Status: Acute Code(s): R41.82 - ALTERED MENTAL STATUS, UNSPECIFIED (5) HTN (hypertension) Current Visit: No Status: Chronic Code(s): I10 - ESSENTIAL (PRIMARY) HYPERTENSION (6) Paroxysmal atrial fibrillation Current Visit: No Status: Chronic Code(s): I48.0 - PAROXYSMAL ATRIAL FIBRILLATION Telemedicine Encounter - Telemedicine Encounter Telemedicine Encounter: The entirety of this encounter was performed via Telemedicine"This visit was performed using real-time audio and video connection between my location and thepatients locationwith the assistance of a surrogateat the patients location. Written or verbal consent was obtained from the patient/guardian to perform this visit using[employer] technology. Any patient questions regarding the telemedicine interaction were answered. Generalized weakness With low p.o. intake Seems due to underlying DAWNA Tested negative for COVID and influenza Rule out for infection, follow-up urine and blood culture Continue hydration overnight Will get PT OT evaluation Acute kidney injury Baseline creatinine 0.8 Current creatinine one 2.36 Continue fluids Keep avoiding nephrotoxins Will obtain renal ultrasound Hypotension Seems due to volume depletion secondary to poor p.o. intake Responded very well to fluids Will keep holding all blood pressure meds for now COPD With mild exacerbation Continue breathing therapy, will add Pulmicort Will start him on oral steroids prednisone 40 mg daily Chronic diastolic congestive heart failure Patient is clinically looking hypovolemic although BNP elevated but that may be secondary to DAWNA X-ray consistent with pulmonary edema ECHO back in 03/2023 showed normal EF with DD Will keep holding diuretics for now Paroxysmal atrial fibrillation Keep holding Coreg tonight Continue Eliquis Urinary tract infection Urine is positive for trace leukocyte esterase We will continue ceftriaxone Keep following up urine cultures Chronic back pain pt takes hydrocodone only he does not take oxycontin any more H/o Bladder Cancer S/p BCG RX, was on keytruda until beginning of this year F/u Urologist regularly Anxiety/mood disorder Continue sertraline and olanzapine Gastroesophageal reflux disease Continue Protonix DVT prophylaxis SCD/Eliquis CODE STATUS full as per my discussion with and pt Discharge planning pending medical stability. I have reviewed patient lab work and imaging in detail all question and concerns were addressed
[2024-07-26] MEDS ORDERED: NARCAN 2 MG/2 ML IM PRN (20:19)
[2024-07-26] MEDS ORDERED: DUONEB 0.5-3 MG/3 ml Neb IH PRN (20:27)
[2024-07-26] MEDS ORDERED: TIMOPTIC 0.5% 5 ML OPHTHALMIC OP ONE (21:10)
[2024-07-26] MEDS ORDERED: ELIQUIS 2.5 MG TABLET ONE (21:11)
[2024-07-26] MEDS: zyPREXA 5MG TABLET PO SCH (21:16)
[2024-07-26] MEDS: Flomax 0.4 MG PO SCH (21:16)
[2024-07-26] MEDS: FEOSOL 325 MG PO SCH (21:16)
[2024-07-26] MEDS: NON-FORMULARY ITEM (Apixaban*** [Eliquis 5 Mg Tablet***] 5 MG Tablet) PO SCH (21:17)
[2024-07-26] MEDS: [UNRECOGNIZED DRUG - OTHER] OP SCH (21:17)
[2024-07-26] MEDS: NORCO 10-325 MG PO PRN (21:17)
[2024-07-26] MEDS: NON-FORMULARY ITEM (Dorzolamide Hcl/Pf [Dorzolamide 2% Eye Drop] 10 ML Drops) OP SCH (21:20)
[2024-07-26] MEDS ORDERED: Ms Contin 15 MG PO SCH (22:00)
[2024-07-26] MEDS ORDERED: PULMICORT 0.5 MG/2 ML RESPULES IH ONE (22:07)
[2024-07-26] MEDS: PULMICORT 0.5 MG/2 ML RESPULES IH SCH (22:13)
--- NOTE | 2024-07-27 05:20 | PCM.NOTE ---
Date and Time: 07/27/24 0514 Subjective Assessment: Mr Mcduffie is an 89 years old male with pmhx of HTN, chronic active pulmonary disease on 2 L oxygen at home paroxysmal atrial fibrillation, chronic congestive failure, chronic pain syndrome, GERD, anxiety/mood disorder admitted 07/27/24 with complaints of generalized weakness that was noticed since yesterday, poor energy, and decreased urine output, staying in bed most of the day. He was also noted with shortness of breath. No N/V/D, no cough/ congestion/fever noted. He is otherwise compliant with his meds. In the ER that showed blood pressure was 89/54 he was afebrile with pulse of 57. As for his blood workup concern white cell count 8.5 hemoglobin 11.4 platelets 271. BMP remarkable for creatinine of 2.36 bicarb 31 lactate was less than 2. Blood gas was not very impressive except for mild elevation in CO2 around 53. Urine was positive for trace leukocyte esterase. BNP was 1220 troponin slightly elevated. Chest x-ray was completely unremarkable. Patient was given 1 L fluid with improvement in his blood pressure and he received 1 breathing therapy that trended down his oxygen requirement for 550 to 2 L. He was looking much more comfortable and less distressful. Admitted with DAWNA, UTI, and generalized weakness. Plan for PT/OT eval, IVF and abx for UTI. 07/27: Met with patient bedside. Remains confused but appears to be at his baseline. Alert and responsive. Discussed lab findings and treatment plan. Patient with no complaints during interview. - Review of Systems Constitutional: No Symptoms Eyes: No Symptoms Ears, Nose, & Throat: No Symptoms Respiratory: No Symptoms Cardiac: No Symptoms Abdominal/Gastrointestinal: No Symptoms Genitourinary Symptoms: No Symptoms Musculoskeletal: No Symptoms Skin: No Symptoms Neurological: No Symptoms Psychological: No Symptoms Endocrine: No Symptoms Hematologic/Lymphatic: No Symptoms Immunological/Allergic: No Symptoms Objective Exam General Appearance: no apparent distress Neurologic Exam: alert, cooperative, disoriented, confusion Skin Exam: normal color Wound Assessment: Skin/Wound Assessment Wound/Incision Assessment Start: 07/26/24 18:13 Text: Status: Active Freq: Q6H Protocol: Document 07/27/24 00:13 LB (Rec: 07/27/24 02:19 LB [id number]) Wound/Incision Assessment Upper Posterior Medial Buttock Wound Assessment Admission Wound Type SHEARING Wound Stage Stage II Drainage Amount None Drainage Odor None/Absent Wound Bed Greatest Portion Red (Granulation),Yellow ( [place]) Surrounding Tissue Purple Primary Dressing MEPILEX Comment SHEARING NOTED TO BILATERAL BUTTOCKS, MEPILEX IN PLACE Wound Photo Photo Taken No Wound/Incision Assessment Start: 07/26/24 18:45 Text: Status: Active Freq: Protocol: Document 07/26/24 18:45 RB (Rec: 07/26/24 18:50 RB [id number]) Wound/Incision Assessment Upper Posterior Medial Buttock Wound Assessment Admission Wound Type SHEARING Wound Stage Stage II Drainage Amount None Drainage Odor None/Absent Wound Bed Greatest Portion Red (Granulation),Yellow ( [place]) Surrounding Tissue Purple Primary Dressing MEPILEX Comment SHEARING NOTED TO BILATERAL BUTTOCKS, Wound Photo Photo Taken Yes Date: 07/26/24 Time: 18:49 Eye Exam: PERRL Ears, Nose, Throat Exam: normal ENT inspection Neck Exam: normal inspection Respiratory Exam: normal breath sounds, lungs clear Cardiovascular Exam: regular rate/rhythm, normal heart sounds Gastrointestinal/Abdomen Exam: soft, normal bowel sounds Extremity Exam: normal inspection Back Exam: normal inspection Male Genitalia Exam: deferred Rectal Exam: deferred Objective Data Vital Signs: Vital Signs - 24 hr Temp Pulse Resp BP BP Pulse Ox 07/27/24 04:00 97.6 F 64 20 142/65 93 L 07/27/24 00:00 97.3 F 62 18 112/67 97 07/26/24 22:13 59 L 16 93 L 07/26/24 20:00 97.3 F 59 L 16 120/58 98 07/26/24 18:16 96.0 F 60 16 114/57 92 L 07/26/24 16:18 94 L 07/26/24 16:00 101/50 07/26/24 15:30 56 L 14 97/56 94 L 07/26/24 15:16 59 L 17 102/51 68 L 07/26/24 15:04 58 L 15 76/47 91 L 07/26/24 15:00 59 L 9 L 83/43 92 L 07/26/24 14:42 60 13 94 L 07/26/24 14:30 59 L 12 91/48 89 L 07/26/24 13:49 97.7 F 57 L 18 89/54 85 L Pain Assessment - Last Documented Pain Intensity 0 Pain Scale Used 0-10 Pain Scale Intake and Output: Intake & Output 07/24/24 07/25/24 07/26/24 07/27/24 11:59 11:59 11:59 11:59 Intake Total 574 Balance 574 Weight 74.9 kg Lab Results: Lab Results-Last 24 Hours 07/26/24 07/26/24 07/26/24 Range/Units 14:10 14:10 14:10 WBC 8.5 (4.23-9.07) x10^3/uL RBC 3.83 L (4.63-6.08) x10^6/uL Hgb 11.4 L (13.7-17.5) g/dL Hct 37.1 L (40.1-51.0) % MCV 96.9 H (79.0-92.2) fL MCH 29.8 (25.7-32.2) pg MCHC 30.7 L (32.3-36.5) g/dL RDW 17.3 H (11.6-14.4) % Plt Count 271 (163-337) x10^3/uL MPV 9.2 L (9.4-12.4) fL Gran % 54.6 (34.0-67.9) % Immature Gran % (Auto) 0.5 H (0.001-0.429) % Nucleat RBC Rel Count 0.0 (0.00-0.2) % Eos # (Auto) 0.66 H (0.04-0.54) x10^3/uL Immature Gran # (Auto) 0.04 H (0.001-0.031) x10^3u/L Absolute Lymphs (auto) 2.20 (1.32-3.57) x10^3/uL Absolute Monos (auto) 0.93 H (0.30-0.82) x10^3/uL Absolute Nucleated RBC 0.00 (0.00-0.012) x10^3u/L Lymphocytes % 26.0 (21.8-53.1) % Monocytes % 11.0 (5.3-12.2) % Eosinophils % 7.8 H (0.8-7.0) % Basophils % 0.1 L (0.2-1.2) % Absolute Granulocytes 4.62 (1.78-5.38) x10^3/uL Basophils # 0.01 (0.01-0.08) x10^3/uL Puncture Site pCO2 (35-45) mmHg pO2 (75-100) mmHg Base Excess (-2.0-2.0) O2 Saturation (94-100) g/dF ABG pH (7.35-7.45) ABG HCO3 (22-28) ABG O2 Sat (Measured) (95-100) % Luis Enrique Test A-a Gradient a/A Ratio Hemoglobin Carboxyhemoglobin (0.0-6.9) % THgb Methemoglobin (1.4-1.5) % Temperature C POC O2 Flow Rate % Sodium 136 (135-145) mmol/L Potassium 4.4 (3.5-5.1) mmol/L Chloride 99 (98-107) mmol/L Carbon Dioxide 31 H (22-30) mmol/L Anion Gap 10.6 (5-15) MEQ/L BUN 37 H (9-20) mg/dL Creatinine 2.36 H (0.66-1.25) mg/dL Estimated GFR 25.8 ML/MIN Glucose 106 (74-106) mg/dL Lactic Acid (0.4-2.0) Calcium 8.6 (8.4-10.2) mg/dL Magnesium 1.7 (1.6-2.3) mg/dL Total Bilirubin 0.60 (0.2-1.3) mg/dL AST 24 (17-59) U/L ALT 18 (0-50) U/L Alkaline Phosphatase 263 H (38-126) U/L Troponin I 0.074 H* (0.000-0.033) ng/mL NT-Pro-B Natriuret Pep 1220 (<300) pg/mL Serum Total Protein 6.1 L (6.3-8.2) g/dL Albumin 3.1 L (3.5-5.0) g/dL Urine Color (Yellow) Urine Appearance (Clear) Urine pH (4.6-8.0) Ur Specific [place] (1.005-1.030) Urine Protein (Negative) Urine Glucose (UA) (Negative) mg/dL Urine Ketones (Negative) Urine Blood (Negative) Urine Nitrite (Negative) Urine Bilirubin (Negative) Urine Urobilinogen (0.2) mg/dL Ur Leukocyte Esterase (Negative) U Hyaline Cast (Auto) (0-2) /LPF Urine Microscopic RBC (0-5) /HPF Urine Microscopic WBC (0-5) /HPF Ur Epithelial Cells (None Seen) /HPF Uric Acid Crystals (None Seen) /HPF Urine Bacteria (None Seen) /HPF Urine Culture Reflexed (NO) Influenza Type A Ag (NEGATIVE) Influenza Type B Ag (NEGATIVE) RSV (PCR) (NEGATIVE) SARS-CoV-2 (PCR) (NEGATIVE) 07/26/24 07/26/24 07/26/24 Range/Units 14:17 14:28 17:24 WBC (4.23-9.07) x10^3/uL RBC (4.63-6.08) x10^6/uL Hgb (13.7-17.5) g/dL Hct (40.1-51.0) % MCV (79.0-92.2) fL MCH (25.7-32.2) pg MCHC (32.3-36.5) g/dL RDW (11.6-14.4) % Plt Count (163-337) x10^3/uL MPV (9.4-12.4) fL Gran % (34.0-67.9) % Immature Gran % (Auto) (0.001-0.429) % Nucleat RBC Rel Count (0.00-0.2) % Eos # (Auto) (0.04-0.54) x10^3/uL Immature Gran # (Auto) (0.001-0.031) x10^3u/L Absolute Lymphs (auto) (1.32-3.57) x10^3/uL Absolute Monos (auto) (0.30-0.82) x10^3/uL Absolute Nucleated RBC (0.00-0.012) x10^3u/L Lymphocytes % (21.8-53.1) % Monocytes % (5.3-12.2) % Eosinophils % (0.8-7.0) % Basophils % (0.2-1.2) % Absolute Granulocytes (1.78-5.38) x10^3/uL Basophils # (0.01-0.08) x10^3/uL Puncture Site RIGHT RADIAL pCO2 53 H (35-45) mmHg pO2 89 (75-100) mmHg Base Excess 6.0 H (-2.0-2.0) O2 Saturation 93.9 L (94-100) g/dF ABG pH 7.39 (7.35-7.45) ABG HCO3 32.1 H* (22-28) ABG O2 Sat (Measured) 96.4 (95-100) % Luis Enrique Test NOT APPLICABLE A-a Gradient 130 a/A Ratio 0.41 Hemoglobin 10.9 Carboxyhemoglobin 1.6 (0.0-6.9) % THgb Methemoglobin 1.0 L (1.4-1.5) % Temperature 37.0 C POC O2 Flow Rate 40 % Sodium (135-145) mmol/L Potassium 4.6 (3.5-5.1) mmol/L Chloride (98-107) mmol/L Carbon Dioxide (22-30) mmol/L Anion Gap (5-15) MEQ/L BUN (9-20) mg/dL Creatinine (0.66-1.25) mg/dL Estimated GFR ML/MIN Glucose (74-106) mg/dL Lactic Acid 1.1 (0.4-2.0) Calcium (8.4-10.2) mg/dL Magnesium (1.6-2.3) mg/dL Total Bilirubin (0.2-1.3) mg/dL AST (17-59) U/L ALT (0-50) U/L Alkaline Phosphatase (38-126) U/L Troponin I (0.000-0.033) ng/mL NT-Pro-B Natriuret Pep (<300) pg/mL Serum Total Protein (6.3-8.2) g/dL Albumin (3.5-5.0) g/dL Urine Color Dark Yellow (Yellow) Urine Appearance Cloudy A (Clear) Urine pH 5.0 (4.6-8.0) Ur Specific [place] 1.015 (1.005-1.030) Urine Protein Negative (Negative) Urine Glucose (UA) Negative (Negative) mg/dL Urine Ketones Trace A (Negative) Urine Blood Negative (Negative) Urine Nitrite Negative (Negative) Urine Bilirubin Negative (Negative) Urine Urobilinogen 0.2 (0.2) mg/dL Ur Leukocyte Esterase Small A (Negative) U Hyaline Cast (Auto) 0-2 (0-2) /LPF Urine Microscopic RBC 0-2 (0-5) /HPF Urine Microscopic WBC 3-5 (0-5) /HPF Ur Epithelial Cells Rare (None Seen) /HPF Uric Acid Crystals 6-10 A (None Seen) /HPF Urine Bacteria None Seen (None Seen) /HPF Urine Culture Reflexed NO (NO) Influenza Type A Ag NEGATIVE (NEGATIVE) Influenza Type B Ag NEGATIVE (NEGATIVE) RSV (PCR) NEGATIVE (NEGATIVE) SARS-CoV-2 (PCR) NEGATIVE (NEGATIVE) 07/26/24 07/26/24 Range/Units 18:50 22:45 WBC (4.23-9.07) x10^3/uL RBC (4.63-6.08) x10^6/uL Hgb (13.7-17.5) g/dL Hct (40.1-51.0) % MCV (79.0-92.2) fL MCH (25.7-32.2) pg MCHC (32.3-36.5) g/dL RDW (11.6-14.4) % Plt Count (163-337) x10^3/uL MPV (9.4-12.4) fL Gran % (34.0-67.9) % Immature Gran % (Auto) (0.001-0.429) % Nucleat RBC Rel Count (0.00-0.2) % Eos # (Auto) (0.04-0.54) x10^3/uL Immature Gran # (Auto) (0.001-0.031) x10^3u/L Absolute Lymphs (auto) (1.32-3.57) x10^3/uL Absolute Monos (auto) (0.30-0.82) x10^3/uL Absolute Nucleated RBC (0.00-0.012) x10^3u/L Lymphocytes % (21.8-53.1) % Monocytes % (5.3-12.2) % Eosinophils % (0.8-7.0) % Basophils % (0.2-1.2) % Absolute Granulocytes (1.78-5.38) x10^3/uL Basophils # (0.01-0.08) x10^3/uL Puncture Site pCO2 (35-45) mmHg pO2 (75-100) mmHg Base Excess (-2.0-2.0) O2 Saturation (94-100) g/dF ABG pH (7.35-7.45) ABG HCO3 (22-28) ABG O2 Sat (Measured) (95-100) % Luis Enrique Test A-a Gradient a/A Ratio Hemoglobin Carboxyhemoglobin (0.0-6.9) % THgb Methemoglobin (1.4-1.5) % Temperature C POC O2 Flow Rate % Sodium (135-145) mmol/L Potassium (3.5-5.1) mmol/L Chloride (98-107) mmol/L Carbon Dioxide (22-30) mmol/L Anion Gap (5-15) MEQ/L BUN (9-20) mg/dL Creatinine (0.66-1.25) mg/dL Estimated GFR ML/MIN Glucose (74-106) mg/dL Lactic Acid (0.4-2.0) Calcium (8.4-10.2) mg/dL Magnesium (1.6-2.3) mg/dL Total Bilirubin (0.2-1.3) mg/dL AST (17-59) U/L ALT (0-50) U/L Alkaline Phosphatase (38-126) U/L Troponin I 0.061 H* 0.051 H* (0.000-0.033) ng/mL NT-Pro-B Natriuret Pep (<300) pg/mL Serum Total Protein (6.3-8.2) g/dL Albumin (3.5-5.0) g/dL Urine Color (Yellow) Urine Appearance (Clear) Urine pH (4.6-8.0) Ur Specific [place] (1.005-1.030) Urine Protein (Negative) Urine Glucose (UA) (Negative) mg/dL Urine Ketones (Negative) Urine Blood (Negative) Urine Nitrite (Negative) Urine Bilirubin (Negative) Urine Urobilinogen (0.2) mg/dL Ur Leukocyte Esterase (Negative) U Hyaline Cast (Auto) (0-2) /LPF Urine Microscopic RBC (0-5) /HPF Urine Microscopic WBC (0-5) /HPF Ur Epithelial Cells (None Seen) /HPF Uric Acid Crystals (None Seen) /HPF Urine Bacteria (None Seen) /HPF Urine Culture Reflexed (NO) Influenza Type A Ag (NEGATIVE) Influenza Type B Ag (NEGATIVE) RSV (PCR) (NEGATIVE) SARS-CoV-2 (PCR) (NEGATIVE) Radiology Exams: Radiology Procedures Category Date Time Status CHEST 1 VIEW (PORTABLE) Stat Exams 07/26/24 14:19 Completed Renal Ultrasound [KIDNEY] [US] Routine Exams 07/26/24 20:51 Ordered Assessment/Plan (1) Acute renal failure Current Visit: Yes Status: Acute Assessment & Plan: -Baseline creat around 0.8 -Creat reviewed and now wnl at 1.20<2.36 -resolved -IVF -discontinued -monitor renal/lytes -avoid nephrotoxic medications SOLIS/ARB/NSAIDS -renal US demonstrates Negative renal calculus or evidence for obstructive uropathy. Incidental distended gallbladder and enlarged prostate gland (2) Generalized weakness Current Visit: Yes Status: Acute Assessment & Plan: -poor appetite and energy levels -Negative for respiratory viral panel -likely secondary to UTI -PT/OT eval Code(s): R53.1 - WEAKNESS (3) COPD (chronic obstructive pulmonary disease) Current Visit: No Status: Acute Assessment & Plan: -Does not appear to be in exacerbation -Supplemental oxygen with goal spo2 88-92% on 2L currently -Continue pulmicort/NEbs -Continue prednisone -CXR reviewed with no acute findings (4) Paroxysmal atrial fibrillation Current Visit: No Status: Chronic Assessment & Plan: -Continue eliquis -held metoprolol due to hypotension - can now resume - continue to hold amlodipine for now Code(s): I48.0 - PAROXYSMAL ATRIAL FIBRILLATION (5) Hypotension Current Visit: Yes Status: Acute Assessment & Plan: -due to hypovolemia most likely -BP is improving -resume meds when stable Code(s): I95.9 - HYPOTENSION, UNSPECIFIED (6) Chronic diastolic heart failure Current Visit: Yes Status: Acute Assessment & Plan: -Echo reviewed from 04/10/24 noting EF around 55-60% Normal LV size and function. Basal septal hypertrophy. Normal right ventricular size and function. Mild aortic valve regurgitation. -BNP 1220 -stop IVF -CXR No new/acute findings Code(s): I50.32 - CHRONIC DIASTOLIC (CONGESTIVE) HEART FAILURE (7) UTI (urinary tract infection) Current Visit: Yes Status: Acute Assessment & Plan: -UA suspicious for UTI, Ceftriaxone initiated, will follow culture Code(s): N39.0 - URINARY TRACT INFECTION, SITE NOT SPECIFIED (8) Chronic back pain Current Visit: Yes Status: Acute Assessment & Plan: -Takes hydrocone daily - will resume here Code(s): M54.9 - DORSALGIA, UNSPECIFIED; G89.29 - OTHER CHRONIC PAIN (9) History of bladder cancer Current Visit: Yes Status: Acute Assessment & Plan: S/p BCG RX, was on keytruda until beginning of this year F/u Urologist regularly Code(s): Z85.51 - PERSONAL HISTORY OF MALIGNANT NEOPLASM OF BLADDER (10) Depression with anxiety Current Visit: Yes Status: Acute Assessment & Plan: -continue home meds sertraline and olanzapine Code(s): F41.8 - OTHER SPECIFIED ANXIETY DISORDERS (11) GERD (gastroesophageal reflux disease) Current Visit: Yes Status: Acute Assessment & Plan: -Continue Protonix DVT prophylaxis SCD/Eliquis CODE STATUS full Code(s): K21.9 - GASTRO-ESOPHAGEAL REFLUX DISEASE WITHOUT ESOPHAGITIS
[2024-07-27 05:47] LABS: Hematocrit 34.3 % (40.1-51.0); Hemoglobin 10.8 g/dL (13.7-17.5); Mean Cell Volume 94.8 fL (79.0-92.2); Mean Corpuscular Hemoglobin 29.8 pg (25.7-32.2); Mean Corpuscular Hgb Concent. 31.5 g/dL (32.3-36.5); Mean Platelet Volume 9.3 fL (9.4-12.4); Platelet Count 224 x10^3/uL (163-337); Red Blood Count 3.62 x10^6/uL (4.63-6.08); Red Cell Distribution Width 16.9 % (11.6-14.4); White Blood Count 5.6 x10^3/uL (4.23-9.07)
[2024-07-27 06:10] LABS: ANION GAP 6.6 MEQ/L (5-15); Calcium 8.2 mg/dL (8.4-10.2); Creatinine 1 1.2 mg/dL (0.66-1.25); EST GLOMERULAR FILTRATION RATE 58.2 ML/MIN; Potassium 3.7 mmol/L (3.5-5.1)
[2024-07-27] MEDS ORDERED: NORCO 10-325 MG PO PRN (08:11)
[2024-07-27] MEDS ORDERED: MEDICATION INTERVENTION MC SCH ×2 (08:45)
--- NOTE | 2024-07-27 09:02 | XRAY ---
Indication: Obstruction. Two-dimensional renal sonogram performed. Comparison: July 03, 2024 Both kidneys again normal in reniform shape with normal color perfusion. Right kidney measures 11.0 x 6.1 x 5.2 cm and left measures 12.0 x 5.2 x 5.1 cm. Previous left lower renal cyst not included. No new focal solid/cystic renal mass or evidence for obstructive uropathy. Cortical medullary differentiation preserved. Normally distended urinary bladder is grossly unremarkable with normal bilateral ureteral jets. Incidental mild distended gallbladder and enlarged prostate gland. Impression: Negative renal calculus or evidence for obstructive uropathy. Incidental distended gallbladder and enlarged prostate gland.
[2024-07-27] MEDS: Lopressor 50 MG PO SCH (10:18)
[2024-07-27] MEDS: Klor Con PO SCH (10:18)
[2024-07-27] MEDS: ROCEPHIN 1 GM / 100 ML NaCl 1 GM/100 ML IVPB IV SCH (10:18)
[2024-07-27] MEDS: ELIQUIS 2.5 MG TABLET PO SCH (10:19)
[2024-07-27] MEDS: MAG-OX 400 PO SCH (10:19)
[2024-07-27] MEDS: Protonix 40MG Tablet PO SCH (10:19)
[2024-07-27] MEDS: Docusate Sodium 100 MG PO SCH (10:19)
[2024-07-27] MEDS: THERAGRAN MULTIVITAMIN PO SCH (10:19)
[2024-07-27] MEDS: ZOLOFT 50 MG TABLET PO SCH (10:20)
[2024-07-27] MEDS: DELTASONE 20 MG PO SCH (10:20)
[2024-07-27] MEDS: TIMOPTIC 0.5% 5 ML OPHTHALMIC OP SCH (10:20)
[2024-07-27] MEDS: zyPREXA 5MG TABLET PO SCH (21:20)
--- NOTE | 2024-07-28 05:06 | PCM.NOTE ---
Date and Time: 07/28/24 0502 Subjective Assessment: Mr Mcduffie is an 89 years old male with pmhx of HTN, chronic active pulmonary disease on 2 L oxygen at home paroxysmal atrial fibrillation, chronic congestive failure, chronic pain syndrome, GERD, anxiety/mood disorder admitted 07/27/24 with complaints of generalized weakness that was noticed since yesterday, poor energy, and decreased urine output, staying in bed most of the day. He was also noted with shortness of breath. No N/V/D, no cough/ congestion/fever noted. He is otherwise compliant with his meds. In the ER that showed blood pressure was 89/54 he was afebrile with pulse of 57. As for his blood workup concern white cell count 8.5 hemoglobin 11.4 platelets 271. BMP remarkable for creatinine of 2.36 bicarb 31 lactate was less than 2. Blood gas was not very impressive except for mild elevation in CO2 around 53. Urine was positive for trace leukocyte esterase. BNP was 1220 troponin slightly elevated. Chest x-ray was completely unremarkable. Patient was given 1 L fluid with improvement in his blood pressure and he received 1 breathing therapy that trended down his oxygen requirement for 550 to 2 L. He was looking much more comfortable and less distressful. Admitted with DAWNA, UTI, and generalized weakness. Plan for PT/OT eval, IVF and abx for UTI. 07/27: Met with patient bedside. Remains confused but appears to be at his baseline. Alert and responsive. Discussed lab findings and treatment plan. Patient with no complaints during interview. Objective Exam Wound Assessment: Skin/Wound Assessment Wound/Incision Assessment Start: 07/26/24 18:13 Text: Status: Active Freq: Q6H Protocol: Document 07/27/24 18:00 RB (Rec: 07/27/24 18:15 RB [id number]) Wound/Incision Assessment Upper Posterior Medial Buttock Wound Assessment Admission Wound Type SHEARING Wound Stage Stage II Drainage Amount None Drainage Odor None/Absent Surrounding Tissue Purple Primary Dressing MEPILEX Comment new drsg in place today, cdi at this time, barrier cream applied, pt reports. " this medication feels so much better" Wound Photo Photo Taken No Wound/Incision Assessment Start: 07/26/24 18:45 Text: Status: Active Freq: Protocol: Document 07/26/24 18:45 RB (Rec: 07/26/24 18:50 RB [id number]) Wound/Incision Assessment Upper Posterior Medial Buttock Wound Assessment Admission Wound Type SHEARING Wound Stage Stage II Drainage Amount None Drainage Odor None/Absent Wound Bed Greatest Portion Red (Granulation),Yellow ( [place]) Surrounding Tissue Purple Primary Dressing MEPILEX Comment SHEARING NOTED TO BILATERAL BUTTOCKS, Wound Photo Photo Taken Yes Date: 07/26/24 Time: 18:49 Objective Data Vital Signs: Vital Signs - 24 hr Temp Pulse Resp BP Pulse Ox 07/28/24 03:30 96.8 F 64 18 180/81 95 07/27/24 20:00 97.8 F 77 18 135/62 97 07/27/24 19:25 82 16 93 L 07/27/24 16:00 97.9 F 68 18 129/59 92 L 07/27/24 12:00 96.5 F 67 18 149/82 94 L 07/27/24 07:23 96.4 F 63 18 150/66 90 L 07/27/24 06:42 64 20 95 Pain Assessment - Last Documented Pain Intensity 0 Pain Scale Used 0-10 Pain Scale Intake and Output: Intake & Output 07/25/24 07/26/24 07/27/24 07/28/24 11:59 11:59 11:59 11:59 Intake Total 574 2373 Balance 574 2373 Weight 74.9 kg Lab Results: Lab Results-Last 24 Hours 07/27/24 07/27/24 Range/Units 05:41 05:41 WBC 5.6 (4.23-9.07) x10^3/uL RBC 3.62 L (4.63-6.08) x10^6/uL Hgb 10.8 L (13.7-17.5) g/dL Hct 34.3 L (40.1-51.0) % MCV 94.8 H (79.0-92.2) fL MCH 29.8 (25.7-32.2) pg MCHC 31.5 L (32.3-36.5) g/dL RDW 16.9 H (11.6-14.4) % Plt Count 224 (163-337) x10^3/uL MPV 9.3 L (9.4-12.4) fL Sodium 138 (135-145) mmol/L Potassium 3.7 (3.5-5.1) mmol/L Chloride 104 (98-107) mmol/L Carbon Dioxide 31 H (22-30) mmol/L Anion Gap 6.6 (5-15) MEQ/L BUN 28 H (9-20) mg/dL Creatinine 1.20 (0.66-1.25) mg/dL Estimated GFR 58.2 ML/MIN Glucose 95 (74-106) mg/dL Calcium 8.2 L (8.4-10.2) mg/dL Radiology Exams: Radiology Procedures Category Date Time Status CHEST 1 VIEW (PORTABLE) Stat Exams 07/26/24 14:19 Completed KIDNEY [US] Routine Exams 07/27/24 20:51 Completed Assessment/Plan (1) Acute renal failure Current Visit: Yes Status: Acute Assessment & Plan: -Baseline creat around 0.8 -Creat reviewed and now wnl at 1.20<2.36 -resolved -IVF -discontinued -monitor renal/lytes -avoid nephrotoxic medications SOLIS/ARB/NSAIDS -renal US demonstrates Negative renal calculus or evidence for obstructive uropathy. Incidental distended gallbladder and enlarged prostate gland (2) Generalized weakness Current Visit: Yes Status: Acute Assessment & Plan: -poor appetite and energy levels -Negative for respiratory viral panel -likely secondary to UTI -PT/OT eval Code(s): R53.1 - WEAKNESS (3) COPD (chronic obstructive pulmonary disease) Current Visit: No Status: Acute Assessment & Plan: -Does not appear to be in exacerbation -Supplemental oxygen with goal spo2 88-92% on 2L currently -Continue pulmicort/NEbs -Continue prednisone -CXR reviewed with no acute findings (4) Paroxysmal atrial fibrillation Current Visit: No Status: Chronic Assessment & Plan: -Continue eliquis -held metoprolol due to hypotension - can now resume - continue to hold amlodipine for now Code(s): I48.0 - PAROXYSMAL ATRIAL FIBRILLATION (5) Hypotension Current Visit: Yes Status: Acute Assessment & Plan: -due to hypovolemia most likely -BP is improving -resume meds when stable Code(s): I95.9 - HYPOTENSION, UNSPECIFIED (6) Chronic diastolic heart failure Current Visit: Yes Status: Acute Assessment & Plan: -Echo reviewed from 04/10/24 noting EF around 55-60% Normal LV size and function. Basal septal hypertrophy. Normal right ventricular size and function. Mild aortic valve regurgitation. -BNP 1220 -stop IVF -CXR No new/acute findings Code(s): I50.32 - CHRONIC DIASTOLIC (CONGESTIVE) HEART FAILURE (7) UTI (urinary tract infection) Current Visit: Yes Status: Acute Assessment & Plan: -UA suspicious for UTI, Ceftriaxone initiated, will follow culture Code(s): N39.0 - URINARY TRACT INFECTION, SITE NOT SPECIFIED (8) Chronic back pain Current Visit: Yes Status: Acute Assessment & Plan: -Takes hydrocone daily - will resume here Code(s): M54.9 - DORSALGIA, UNSPECIFIED; G89.29 - OTHER CHRONIC PAIN (9) History of bladder cancer Current Visit: Yes Status: Acute Assessment & Plan: S/p BCG RX, was on keytruda until beginning of this year F/u Urologist regularly Code(s): Z85.51 - PERSONAL HISTORY OF MALIGNANT NEOPLASM OF BLADDER (10) Depression with anxiety Current Visit: Yes Status: Acute Assessment & Plan: -continue home meds sertraline and olanzapine Code(s): F41.8 - OTHER SPECIFIED ANXIETY DISORDERS (11) GERD (gastroesophageal reflux disease) Current Visit: Yes Status: Acute Assessment & Plan: -Continue Protonix (2) Generalized weakness Current Visit: Yes Status: Acute Code(s): R53.1 - WEAKNESS (3) COPD (chronic obstructive pulmonary disease) Current Visit: No Status: Acute (4) Paroxysmal atrial fibrillation Current Visit: No Status: Chronic Code(s): I48.0 - PAROXYSMAL ATRIAL FIBRILLATION (5) Hypotension Current Visit: Yes Status: Acute Code(s): I95.9 - HYPOTENSION, UNSPECIFIED (6) Chronic diastolic heart failure Current Visit: Yes Status: Acute Code(s): I50.32 - CHRONIC DIASTOLIC (CONGESTIVE) HEART FAILURE (7) UTI (urinary tract infection) Current Visit: Yes Status: Acute Code(s): N39.0 - URINARY TRACT INFECTION, SITE NOT SPECIFIED (8) Chronic back pain Current Visit: Yes Status: Acute Code(s): M54.9 - DORSALGIA, UNSPECIFIED; G89.29 - OTHER CHRONIC PAIN (9) History of bladder cancer Current Visit: Yes Status: Acute Code(s): Z85.51 - PERSONAL HISTORY OF MALIGNANT NEOPLASM OF BLADDER (10) Depression with anxiety Current Visit: Yes Status: Acute Code(s): F41.8 - OTHER SPECIFIED ANXIETY DISORDERS (11) GERD (gastroesophageal reflux disease) Current Visit: Yes Status: Acute Code(s): K21.9 - GASTRO-ESOPHAGEAL REFLUX DISEASE WITHOUT ESOPHAGITIS
[2024-07-28 05:38] LABS: Absolute Neutrophil Ct (ANC) 3.69 x10^3/uL (1.78-5.38); Basophil (Absolute #) 0 x10^3/uL (0.01-0.08); Eosinophil % 2.9 % (0.8-7.0); Eosinophil (Absolute #) 0.18 x10^3/uL (0.04-0.54); Hematocrit 34.4 % (40.1-51.0); Hemoglobin 10.7 g/dL (13.7-17.5); IMMATURE GRAN # 0.01 x10^3u/L (0.001-0.031); IMMATURE GRAN % 0.2 % (0.001-0.429); Lymphocyte (Absolute #) 1.56 x10^3/uL (1.32-3.57); Lymphocytes % 25.2 % (21.8-53.1); Mean Cell Volume 94.2 fL (79.0-92.2); Mean Corpuscular Hemoglobin 29.3 pg (25.7-32.2); Mean Corpuscular Hgb Concent. 31.1 g/dL (32.3-36.5); Mean Platelet Volume 9.8 fL (9.4-12.4); Monocyte (Absolute #) 0.75 x10^3/uL (0.30-0.82); Monocytes % 12.1 % (5.3-12.2); Neutrophil % 59.6 % (34.0-67.9); Platelet Count 253 x10^3/uL (163-337); Red Blood Count 3.65 x10^6/uL (4.63-6.08); Red Cell Distribution Width 16.8 % (11.6-14.4); White Blood Count 6.2 x10^3/uL (4.23-9.07)
[2024-07-28 06:02] LABS: ALBUMIN 2.8 g/dL (3.5-5.0); ANION GAP 6.9 MEQ/L (5-15); BILIRUBIN,TOTAL 0.4 mg/dL (0.2-1.3); Calcium 8.4 mg/dL (8.4-10.2); Creatinine 1 0.96 mg/dL (0.66-1.25); Potassium 3.8 mmol/L (3.5-5.1); Total Protein 5.9 g/dL (6.3-8.2)
[2024-07-28 07:30] VITALS: RESP 16
[2024-07-28 11:28] VITALS: BP 180/79; PULSE 70; TEMP 98
[2024-07-28] MEDS: NORVASC 5 MG PO ONE (13:00)
--- NOTE | 2024-07-28 13:16 | PCM.DS ---
Discharge Summary Date of Admission: 07/26/24 17:57 Date of Discharge: 07/28/24 Admitting Physician: SANAM QUINTERO MD Primary Care Provider: MANJIT MALDONADO Allergies Allergies No Known Allergies Allergy (Verified 07/26/24 14:07) Hospital Summary - Hospital Course Hospital Course: Mr Mcduffie is an 89 years old male with pmhx of HTN, chronic active pulmonary disease on 2 L oxygen at home paroxysmal atrial fibrillation, chronic congestive failure, chronic pain syndrome, GERD, anxiety/mood disorder admitted 07/27/24 with complaints of generalized weakness that was noticed since yesterday, poor energy, and decreased urine output, staying in bed most of the day. He was also noted with shortness of breath. No N/V/D, no cough/ congestion/fever noted. He is otherwise compliant with his meds. In the ER that showed blood pressure was 89/54 he was afebrile with pulse of 57. As for his blood workup concern white cell count 8.5 hemoglobin 11.4 platelets 271. BMP remarkable for creatinine of 2.36 bicarb 31 lactate was less than 2. Blood gas was not very impressive except for mild elevation in CO2 around 53. Urine was positive for trace l eukocyte esterase. BNP was 1220 troponin slightly elevated. Chest x-ray was completely unremarkable. Patient was given 1 L fluid with improvement in his blood pressure and he received 1 breathing therapy that trended down his oxygen requirement for 550 to 2 L. He was looking much more comfortable and less distressful. Admitted with DAWNA, UTI, and generalized weakness. Plan for PT/OT eval, IVF and abx for UTI. Ucult with no growth. DAWNA has resolved. Patient and spouse declines HHC/ SNF placement. Patient to keep BP log at home and closely monitor. Continue to hold lasix until follow up with PCP. Monitor daily weights if > 2-3 lb weight gain in one day or >5lbs in one week contact PCP. Discharge Note New Diagnosis: UTI/Weakness New Medications: Hold lasix Follow Up: pcp Latest Assessment & Plan (1) Acute renal failure Current Visit: Yes Status: Acute Assessment & Plan: -Baseline creat around 0.8 -Creat reviewed and now wnl at 1.20<2.36 -resolved -IVF -discontinued -monitor renal/lytes -avoid nephrotoxic medications SOLIS/ARB/NSAIDS -renal US demonstrates Negative renal calculus or evidence for obstructive uropathy. Incidental distended gallbladder and enlarged prostate gland (2) Generalized weakness Current Visit: Yes Status: Acute Assessment & Plan: -poor appetite and energy levels -Negative for respiratory viral panel -likely secondary to UTI -PT/OT eval Code(s): R53.1 - WEAKNESS (3) COPD (chronic obstructive pulmonary disease) Current Visit: No Status: Acute Assessment & Plan: -Does not appear to be in exacerbation -Supplemental oxygen with goal spo2 88-92% on 2L currently -Continue pulmicort/NEbs -Continue prednisone -CXR reviewed with no acute findings (4) Paroxysmal atrial fibrillation Current Visit: No Status: Chronic Assessment & Plan: -Continue eliquis -held metoprolol due to hypotension - can now resume - c ontinue to hold amlodipine for now Code(s): I48.0 - PAROXYSMAL ATRIAL FIBRILLATION (5) Hypotension Current Visit: Yes Status: Acute Assessment & Plan: -due to hypovolemia most likely -BP is improving -resume meds when stable Code(s): I95.9 - HYPOTENSION, UNSPECIFIED (6) Chronic diastolic heart failure Current Visit: Yes Status: Acute Assessment & Plan: -Echo reviewed from 04/10/24 noting EF around 55-60% Normal LV size and function. Basal septal hypertrophy. Normal right ventricular size and function. Mild aortic valve regurgitation. -BNP 1220 -stop IVF -CXR No new/acute findings Code(s): I50.32 - CHRONIC DIASTOLIC (CONGESTIVE) HEART FAILURE (7) UTI (urinary tract infection) Current Visit: Yes Status: Acute Assessment & Plan: -UA suspicious for UTI, Ceftriaxone initiated, will follow culture Code(s): N39.0 - URINARY TRACT INFECTION, SITE NOT SPECIFIED (8) Chronic back pain Current Visit: Yes Status: Acute Assessment & Plan: -Takes hydrocone daily - will resume here Code(s): M54.9 - DORSALGIA, UNSPECIFIED; G89.29 - OTHER CHRONIC PAIN (9) History of bladder cancer Current Visit: Yes Status: Acute Assessment & Plan: S/p BCG RX, was on keytruda until beginning of this year F/u Urologist regularly Code(s): Z85.51 - PERSONAL HISTORY OF MALIGNANT NEOPLASM OF BLADDER (10) Depression with anxiety Current Visit: Yes Status: Acute Assessment & Plan: -continue home meds sertraline and olanzapine Code(s): F41.8 - OTHER SPECIFIED ANXIETY DISORDERS (11) GERD (gastroesophageal reflux disease) Current Visit: Yes Status: Acute Assessment & Plan: -Continue Protonix I spent 35 minutes [id number] with the patient on the day of discharge performing discharge exam, discussing hospital stay and discharge instructions with patient and caregivers, preparation of discharge records, prescriptions & referral forms and addressing any questions/concerns the patient had as documented above. - Vitals & Intake/Output Vital Signs: Vital Signs Temperature 98.0 F 07/28/24 11:27 Pulse Rate 70 07/28/24 11:27 Respiratory Rate 16 07/28/24 11:27 Blood Pressure 180/79 07/28/24 11:27 O2 Sat by Pulse Oximetry 99 07/28/24 11:27 Intake & Output: Intake & Output 07/26/24 07/27/24 07/28/24 07/29/24 11:59 11:59 11:59 11:59 Intake Total 574 2953 Balance 574 2953 Weight 74.9 kg - Lab Result Diagrams: 07/28/24 05:23 07/28/24 05:23 Lab Results-Last 24 Hrs: Lab Results-Last 24 Hours 07/28/24 07/28/24 Range/Units 05:23 05:23 WBC 6.2 (4.23-9.07) x10^3/uL RBC 3.65 L (4.63-6.08) x10^6/uL Hgb 10.7 L (13.7-17.5) g/dL Hct 34.4 L (40.1-51.0) % MCV 94.2 H (79.0-92.2) fL MCH 29.3 (25.7-32.2) pg MCHC 31.1 L (32.3-36.5) g/dL RDW 16.8 H (11.6-14.4) % Plt Count 253 (163-337) x10^3/uL MPV 9.8 (9.4-12.4) fL Gran % 59.6 (34.0-67.9) % Immature Gran % (Auto) 0.2 (0.001-0.429) % Nucleat RBC Rel Count 0.0 (0.00-0.2) % Eos # (Auto) 0.18 (0.04-0.54) x10^3/uL Immature Gran # (Auto) 0.01 (0.001-0.031) x10^3u/L Absolute Lymphs (auto) 1.56 (1.32-3.57) x10^3/uL Absolute Monos (auto) 0.75 (0.30-0.82) x10^3/uL Absolute Nucleated RBC 0.00 (0.00-0.012) x10^3u/L Lymphocytes % 25.2 (21.8-53.1) % Monocytes % 12.1 (5.3-12.2) % Eosinophils % 2.9 (0.8-7.0) % Basophils % 0.0 L (0.2-1.2) % Absolute Granulocytes 3.69 (1.78-5.38) x10^3/uL Basophils # 0 L (0.01-0.08) x10^3/uL Sodium 139 (135-145) mmol/L Potassium 3.8 (3.5-5.1) mmol/L Chloride 107 (98-107) mmol/L Carbon Dioxide 29 (22-30) mmol/L Anion Gap 6.9 (5-15) MEQ/L BUN 23 H (9-20) mg/dL Creatinine 0.96 (0.66-1.25) mg/dL Estimated GFR 76.0 ML/MIN Glucose 96 (74-106) mg/dL Calcium 8.4 (8.4-10.2) mg/dL Total Bilirubin 0.40 (0.2-1.3) mg/dL AST 24 (17-59) U/L ALT 15 (0-50) U/L Alkaline Phosphatase 236 H (38-126) U/L Serum Total Protein 5.9 L (6.3-8.2) g/dL Albumin 2.8 L (3.5-5.0) g/dL Micro Results-Entire Visit: Microbiology 07/26/24 14:10 Blood Culture - Preliminary Blood 07/26/24 14:17 Blood Culture - Preliminary Blood 07/26/24 05:06 Urine Culture - Final Clean Catch Midstream NO GROWTH - Radiology Exams Ordered Rad Exams-Entire Visit: Radiology Procedures Category Date Time Status CHEST 1 VIEW (PORTABLE) Stat Exams 07/26/24 14:19 Completed KIDNEY [US] Routine Exams 07/27/24 20:51 Completed - Procedures and Test Procedures and Tests throughout Hospitalization: Therapy Orders & Screens 07/26/24 14:41 Respiratory Therapy Assessment DAILY Comment: 07/26/24 18:03 Oxygen Nasal Cannula 2 lpm Comment: Respiratory Therapy Consult ONCE Comment: Reason For Exam: Discharge Exam General Appearance: no apparent distress Neurologic Exam: alert, cooperative, confusion Eye Exam: PERRL Ears, Nose, Throat Exam: normal ENT inspection Neck Exam: normal inspection Respiratory Exam: normal breath sounds, lungs clear Cardiovascular Exam: regular rate/rhythm, normal heart sounds Gastrointestinal/Abdomen Exam: soft, normal bowel sounds Male Genitalia Exam: deferred Rectal Exam: deferred Back Exam: normal inspection Extremity Exam: normal inspection Skin Exam: normal color Wound Assessment: Skin/Wound Assessment Wound/Incision Assessment Start: 07/26/24 18:13 Text: Status: Active Freq: Q6H Protocol: Document 07/28/24 12:00 AR (Rec: 07/28/24 12:16 AR [id number]) Wound/Incision Assessment Upper Posterior Medial Buttock Wound Assessment Shift Assessment Wound Type SHEARING Wound Stage Stage II Drainage Amount None Drainage Odor None/Absent General Appearance Clean/Dry Surrounding Tissue Purple Primary Dressing MEPILEX Comment area cleansed and new mepilex applied Wound Photo Photo Taken No Wound/Incision Assessment Start: 07/26/24 18:45 Text: Status: Active Freq: Protocol: Document 07/26/24 18:45 RB (Rec: 07/26/24 18:50 RB [id number]) Wound/Incision Assessment Upper Posterior Medial Buttock Wound Assessment Admission Wound Type SHEARING Wound Stage Stage II Drainage Amount None Drainage Odor None/Absent Wound Bed Greatest Portion Red (Granulation),Yellow ( [place]) Surrounding Tissue Purple Primary Dressing MEPILEX Comment SHEARING NOTED TO BILATERAL BUTTOCKS, Wound Photo Photo Taken Yes Date: 07/26/24 Time: 18:49 Final Diagnosis/Problem List - Final Discharge Diagnosis/Problem (1) Acute renal failure Current Visit: Yes Status: Resolved (2) Generalized weakness Current Visit: Yes Status: Chronic Code(s): R53.1 - WEAKNESS (3) COPD (chronic obstructive pulmonary disease) Current Visit: No Status: Chronic (4) Paroxysmal atrial fibrillation Current Visit: No Status: Chronic Code(s): I48.0 - PAROXYSMAL ATRIAL FIBRILLATION (5) Hypotension Current Visit: Yes Status: Resolved Code(s): I95.9 - HYPOTENSION, UNSPECIFIED (6) Chronic diastolic heart failure Current Visit: Yes Status: Chronic Code(s): I50.32 - CHRONIC DIASTOLIC (CONGESTIVE) HEART FAILURE (7) UTI (urinary tract infection) Current Visit: Yes Status: Ruled-out Code(s): N39.0 - URINARY TRACT INFECTION, SITE NOT SPECIFIED (8) Chronic back pain Current Visit: Yes Status: Chronic Code(s): M54.9 - DORSALGIA, UNSPECIFIED; G89.29 - OTHER CHRONIC PAIN (9) History of bladder cancer Current Visit: Yes Status: Chronic Code(s): Z85.51 - PERSONAL HISTORY OF MALIGNANT NEOPLASM OF BLADDER (10) Depression with anxiety Current Visit: Yes Status: Chronic Code(s): F41.8 - OTHER SPECIFIED ANXIETY DISORDERS (11) GERD (gastroesophageal reflux disease) Current Visit: Yes Status: Chronic Code(s): K21.9 - GASTRO-ESOPHAGEAL REFLUX DISEASE WITHOUT ESOPHAGITIS - Discharge Disposition: Home, Self-Care Condition: Stable Prescriptions: Continue Multivitamin [Multi-Vitamin Daily] 1 tab PO DAILY Ferrous Sulfate 325 mg PO BID Olanzapine 5 mg [zyPREXA 5MG TABLET] 2.5 mg PO HS Dorzolamide HCl/Pf [Dorzolamide 2% Eye Drop] 1 drop OP BID Sertraline HCl 100 mg PO DAILY Apixaban [Eliquis 5 mg Tablet] 2.5 mg PO BID Potassium Chloride [Klor-Con 10] 20 meq PO DAILY Tamsulosin HCl 0.4 mg [Flomax 0.4 MG] 0.4 mg PO HS Lisinopril 10 mg [Zestril 10 MG] 20 mg PO BID Magnesium Oxide 400 mg [Mag-Ox 400] 400 mg PO DAILY Timolol Maleate/Pf [Timolol Maleate 0.5% Eye Drop] 1 drop OP BID PANTOPRAZOLE 40 mg Tablet [Protonix 40MG Tablet] 40 mg PO DAILY Acetaminophen 325 mg [Tylenol 325 mg] 650 mg PO Q4H PRN PRN tablet PRN Reason: Pain, Fever, Headache Dextromethorphan/Benzocaine [Cepacol Sore Throat-Cough Joycelyn] 1 lozenge PO Q4HPRN PRN PRN Reason: sore throat Zinc Oxide Ointment 30 gm 1 each TOP BID Amlodipine Besylate 10 mg PO DAILY 30 Days #30 tablet Metoprolol Tartrate [Lopressor] 100 mg PO BID 30 Days #60 tablet Hydrocodone/Acetaminophen [Gore 10-325 mg] 1 tablet PO Q12H PRN PRN Reason: Pain Naloxone HCl 2Mg/2 ml [Narcan 2 mg/2 ml] 4 mg IM UD PRN PRN Reason: OD on pain medication Morphine Sulfate [Morphine Sulfate ER] 30 mg PO BID MDD 1 Docusate Sodium 100 mg [Docusate Sodium 100 MG] 100 mg PO DAILY Cholecalciferol (Vitamin D3) [Vitamin D] 1 tab PO DAILY Discontinued Furosemide 40 mg [Lasix 40 MG] 40 mg PO BID Additional Instructions: Keep BP log daily Continue to hold lasix until follow up with PCP - monitor weight daily if >2-3 lb weight gain in 3 days or > 5 lbs in one week contact pcp Follow up with: MANJIT MALDONADO MD [Primary Care Provider] -
[2024-07-28] MEDS: Zestril 20 MG PO SCH (13:22)
[2024-07-28 15:44] VITALS: O2SAT 94
[2024-07-28] MEDS ORDERED: Zestril 10 MG PO SCH (22:00)
[2024-07-29] MEDS ORDERED: NORVASC 5 MG PO SCH (10:00)
== END 2024-07-28 15:29 | disposition home or self-care (01) ==
LOC: ED 13:46 → MED SURG 17:57
PROVIDERS: ADMIT Internal Medicine; ATTEND Internal Medicine
DX: N17.9 Acute kidney failure, unspecified (principal); R53.1 Weakness; J44.9 Chronic obstructive pulmonary disease, unspecified; R07.9 Chest pain, unspecified; I48.0 Paroxysmal atrial fibrillation; Z79.01 Long term (current) use of anticoagulants; I11.0 Hypertensive heart disease with heart failure; I50.32 Chronic diastolic (congestive) heart failure; E78.5 Hyperlipidemia, unspecified; I95.9 Hypotension, unspecified; N39.0 Urinary tract infection, site not specified; M54.9 Dorsalgia, unspecified; F41.8 Other specified anxiety disorders; K21.9 Gastro-esophageal reflux disease without esophagitis; F41.9 Anxiety disorder, unspecified; Z99.81 Dependence on supplemental oxygen; Z85.51 Personal history of malignant neoplasm of bladder; Z79.899 Other long term (current) drug therapy
CPT/HCPCS: 0241U; 36415; 36600; 71045; 76770; 80048; 80053; 81001; 82375; 82803; 83605; 83735; 83880; 84484; 85025; 85027; 87040; 87086; 93005; 93041; 94640; 94762; 96360; 99285; 93268; J0696; A9270-GY; G0378

== ENCOUNTER 2024-10-30 15:20 | Emergency (ER) | payer MEDICARE ==
[2024-10-30 15:42] VITALS: TEMP 97.4
--- NOTE | 2024-10-30 15:57 | ERPHSYRPT ---
- History of Present Illness Time Seen by Provider: 10/30/24 15:45 Source: patient Exam Limitations: no limitations Patient Subjective Stated Complaint: confusion Triage Nursing Assessment: pt daughter said patient was "acting crazy" wanting to go drive his truck which they sold 20 years ago. was being mean to his . patients daughter says he does this when he has a UTI however his BP is 228/105 Physician History: 89-year-old male presents to emergency department for evaluation of "acting crazy". Patient was requesting to drive his truck that they sold 20 years ago. Daughter reports that he tends to display confusion when he experiences a urinary tract infection. He has history of bladder cancer. Patient has had urinary tract infections in the past. Patient denies complaints. He denies pain. Denies weakness. Patient states he feels well. He voices no other complaints or concerns at this time. Portions of this note were created with voice recognition technology. There may be grammatical, spelling, punctuation or sound alike errors Timing/Duration: today Severity: moderate Modifying Factors: Improves With: nothing Associated Symptoms: denies symptoms Allergies/Adverse Reactions: No Known Allergies Allergy (Verified 10/30/24 15:42) Home Medications: Ferrous Sulfate 325 mg PO BID 02/20/22 [History] Multivitamin [Multi-Vitamin Daily] 1 tab PO DAILY 02/20/22 [History] Olanzapine 5 mg [zyPREXA 5MG TABLET] 2.5 mg PO HS 02/20/22 [History] Dorzolamide HCl/Pf [Dorzolamide 2% Eye Drop] 1 drop OP BID 05/21/22 [History] Apixaban [Eliquis 5 mg Tablet] 2.5 mg PO BID 06/02/22 [History] Potassium Chloride [Klor-Con 10] 20 meq PO DAILY 06/02/22 [History] Sertraline HCl 100 mg PO DAILY 06/02/22 [History] Tamsulosin HCl 0.4 mg [Flomax 0.4 MG] 0.4 mg PO HS 06/02/22 [History] Lisinopril 10 mg [Zestril 10 MG] 20 mg PO BID 10/30/22 [History] Magnesium Oxide 400 mg [Mag-Ox 400] 400 mg PO DAILY 12/02/22 [History] Timolol Maleate/Pf [Timolol Maleate 0.5% Eye Drop] 1 drop OP BID 12/03/22 [History] PANTOPRAZOLE 40 mg Tablet [Protonix 40MG Tablet] 40 mg PO DAILY 07/01/23 [History] Dextromethorphan/Benzocaine [Cepacol Sore Throat-Cough Joycelyn] 1 lozenge PO Q4HPRN PRN 07/01/24 [History] Zinc Oxide Ointment 30 gm 1 each TOP BID 07/01/24 [History] Cholecalciferol (Vitamin D3) [Vitamin D] 1 tab PO DAILY 07/26/24 [History] Docusate Sodium 100 mg [Docusate Sodium 100 MG] 100 mg PO DAILY 07/26/24 [History] Hydrocodone/Acetaminophen [[place] 10-325 mg] 1 tablet PO Q12H PRN 07/26/24 [History] Morphine Sulfate [Morphine Sulfate ER] 30 mg PO BID MDD 1 07/26/24 [History] Naloxone HCl 2Mg/2 ml [Narcan 2 mg/2 ml] 4 mg IM UD PRN 07/26/24 [History] Hx Tetanus, Diphtheria Vaccination/Date Given: No Hx Influenza Vaccination/Date Given: No Hx Pneumococcal Vaccination/Date Given: No Travel Risk - International Travel Have you traveled outside of the country in past 3 weeks: No - Emerging Infectious Disease Are you exhibiting symptoms associated with any current EIDs: No Symptoms: Shortness of Breath - Review of Systems Constitutional: No Symptoms, No Fever, No Chills Eyes: No Symptoms Ears, Nose, & Throat: No Symptoms Respiratory: No Symptoms, No Cough, No Dyspnea Cardiac: No Symptoms, No Chest Pain, No Edema, No Syncope Abdominal/Gastrointestinal: No Symptoms, No Abdominal Pain, No Nausea, No Vomiting, No Diarrhea Genitourinary Symptoms: No Symptoms, No Dysuria Musculoskeletal: No Symptoms, No Back Pain, No Neck Pain Skin: No Symptoms, No Rash Neurological: No Symptoms, No Dizziness, No Focal Weakness, No Sensory Changes Psychological: No Symptoms Endocrine: No Symptoms Hematologic/Lymphatic: No Symptoms Immunological/Allergic: No Symptoms All Other Systems: Reviewed and Negative - Past Medical History Pertinent Past Medical History: Yes Neurological History: Migraines ENT History: Cataracts, Glaucoma Cardiac History: Hypertension Respiratory History: COPD Endocrine Medical History: No Pertinent History Musculoskeletal History: Arthritis, Osteoarthritis GI Medical History: GERD History: Bladder Cancer Psycho-Social History: Depression Male Reproductive Disorders: No Pertinent History Other Medical History: bladder cancer 2011. home oxygen at bedtime - Past Surgical History Past Surgical History: Yes Neuro Surgical History: No Pertinent History Cardiac: No Pertinent History Respiratory: No Pertinent History Gastrointestinal: No Pertinent History Genitourinary: No Pertinent History Musculoskeletal: Joint Replacement, Orthopedic Surgery Male Surgical History: No Pertinent History Other Surgical History: Bilateral hip replacement, Bilateral shoulder replacement, bladder biopsy Significant Family History: no pertinent family hx - Social History Smoking Status: Never smoker Exposure to second hand smoke: No Drug Use: none - Social Determinants of Health Will the patient participate in the screening: Yes Do you worry about a steady place to live?: No In the past 12 months,have you had to go without utilities?: No Transportation Issues: No Has anyone in your support network made you feel unsafe?: No Have you or anyone in your house had to go w/o enough food: No - Nursing Vital Signs Nursing Vital Signs: Initial Vital Signs Temperature 97.4 F 10/30/24 15:31 Respiratory Rate 18 10/30/24 15:31 Blood Pressure 212/105 10/30/24 15:31 Pain Scale Pain Intensity 0 - Physical Exam General Appearance: no apparent distress, alert Eye Exam: PERRL/EOMI, eyes nml inspection Ears, Nose, Throat Exam: normal ENT inspection, TMs normal, pharynx normal, moist mucous membranes Neck Exam: normal inspection, non-tender, supple, full range of motion Respiratory Exam: normal breath sounds, lungs clear, airway intact, No respiratory distress Cardiovascular Exam: regular rate/rhythm, normal heart sounds, normal peripheral pulses Gastrointestinal/Abdomen Exam: soft, normal bowel sounds, No tenderness, No mass Back Exam: normal inspection, normal range of motion, No CVA tenderness, No vertebral tenderness Extremity Exam: normal inspection, normal range of motion, pelvis stable Neurologic Exam: alert, oriented x 3, cooperative, normal mood/affect, sensation nml, No motor deficits Skin Exam: normal color, warm, dry, No rash Lymphatic Exam: No adenopathy SpO2 Interpretation: normal O2 Delivery: Room Air - Course Nursing assessment & vital signs reviewed: Yes - CT Exams Head CT Interpretation: Tele-radiologist Report (Nonacute senile pain with chronic right maxillary sinus disease) Ordered Tests: Active Orders 24 hr Category Date Time Status HEAD WITHOUT CONTRAST [CT] Stat Exams 10/30/24 15:55 Completed CBC W DIFF Stat Lab 10/30/24 16:00 Completed CMP Stat Lab 10/30/24 16:00 Completed TROPONIN Q4H Lab 10/30/24 16:00 Completed TROPONIN Q4H Lab 10/30/24 20:00 Received TROPONIN Q4H Lab 10/31/24 00:00 Ordered UA W/RFX UR CULTURE Stat Lab 10/30/24 15:54 Completed Lab/Rad Data: Laboratory Result Diagrams 10/30/24 16:00 10/30/24 16:00 Laboratory Results 10/30/24 10/30/24 10/30/24 Range/Units 16:00 16:00 16:00 WBC 8.2 (4.23-9.07) x10^3/uL RBC 4.57 L (4.63-6.08) x10^6/uL Hgb 13.9 (13.7-17.5) g/dL Hct 42.4 (40.1-51.0) % MCV 92.8 H (79.0-92.2) fL MCH 30.4 (25.7-32.2) pg MCHC 32.8 (32.3-36.5) g/dL RDW 13.5 (11.6-14.4) % Plt Count 225 (163-337) x10^3/uL MPV 8.9 L (9.4-12.4) fL Gran % 58.9 (34.0-67.9) % Immature Gran % (Auto) 0.4 (0.001-0.429) % Nucleat RBC Rel Count 0.0 (0.00-0.2) % Eos # (Auto) 0.52 (0.04-0.54) x10^3/uL Immature Gran # (Auto) 0.03 (0.001-0.031) x10^3u/L Absolute Lymphs (auto) 1.87 (1.32-3.57) x10^3/uL Absolute Monos (auto) 0.92 H (0.30-0.82) x10^3/uL Absolute Nucleated RBC 0.00 (0.00-0.012) x10^3u/L Lymphocytes % 22.9 (21.8-53.1) % Monocytes % 11.3 (5.3-12.2) % Eosinophils % 6.4 (0.8-7.0) % Basophils % 0.1 L (0.2-1.2) % Absolute Granulocytes 4.82 (1.78-5.38) x10^3/uL Basophils # 0.01 (0.01-0.08) x10^3/uL Sodium 144 (135-145) mmol/L Potassium 3.7 (3.5-5.1) mmol/L Chloride 101 (98-107) mmol/L Carbon Dioxide 33 H (22-30) mmol/L Anion Gap 13.1 (5-15) MEQ/L BUN 20 (9-20) mg/dL Creatinine 0.89 (0.66-1.25) mg/dL Estimated GFR 82.4 ML/MIN Glucose 106 (74-106) mg/dL Calcium 9.2 (8.4-10.2) mg/dL Total Bilirubin 1.10 (0.2-1.3) mg/dL AST 37 (17-59) U/L ALT 29 (0-50) U/L Alkaline Phosphatase 89 (38-126) U/L Troponin I < 0.012 (0.000-0.033) ng/mL Serum Total Protein 7.5 (6.3-8.2) g/dL Albumin 4.1 (3.5-5.0) g/dL Urine Color (Yellow) Urine Appearance (Clear) Urine pH (4.6-8.0) Ur Specific [place] (1.005-1.030) Urine Protein (Negative) Urine Glucose (UA) (Negative) mg/dL Urine Ketones (Negative) Urine Blood (Negative) Urine Nitrite (Negative) Urine Bilirubin (Negative) Urine Urobilinogen (0.2) mg/dL Ur Leukocyte Esterase (Negative) U Hyaline Cast (Auto) (0-2) /LPF Urine Microscopic RBC (0-5) /HPF Urine Microscopic WBC (0-5) /HPF Ur Epithelial Cells (None Seen) /HPF Urine Bacteria (None Seen) /HPF Urine Culture Reflexed (NO) 10/30/24 Range/Units 15:54 WBC (4.23-9.07) x10^3/uL RBC (4.63-6.08) x10^6/uL Hgb (13.7-17.5) g/dL Hct (40.1-51.0) % MCV (79.0-92.2) fL MCH (25.7-32.2) pg MCHC (32.3-36.5) g/dL RDW (11.6-14.4) % Plt Count (163-337) x10^3/uL MPV (9.4-12.4) fL Gran % (34.0-67.9) % Immature Gran % (Auto) (0.001-0.429) % Nucleat RBC Rel Count (0.00-0.2) % Eos # (Auto) (0.04-0.54) x10^3/uL Immature Gran # (Auto) (0.001-0.031) x10^3u/L Absolute Lymphs (auto) (1.32-3.57) x10^3/uL Absolute Monos (auto) (0.30-0.82) x10^3/uL Absolute Nucleated RBC (0.00-0.012) x10^3u/L Lymphocytes % (21.8-53.1) % Monocytes % (5.3-12.2) % Eosinophils % (0.8-7.0) % Basophils % (0.2-1.2) % Absolute Granulocytes (1.78-5.38) x10^3/uL Basophils # (0.01-0.08) x10^3/uL Sodium (135-145) mmol/L Potassium (3.5-5.1) mmol/L Chloride (98-107) mmol/L Carbon Dioxide (22-30) mmol/L Anion Gap (5-15) MEQ/L BUN (9-20) mg/dL Creatinine (0.66-1.25) mg/dL Estimated GFR ML/MIN Glucose (74-106) mg/dL Calcium (8.4-10.2) mg/dL Total Bilirubin (0.2-1.3) mg/dL AST (17-59) U/L ALT (0-50) U/L Alkaline Phosphatase (38-126) U/L Troponin I (0.000-0.033) ng/mL Serum Total Protein (6.3-8.2) g/dL Albumin (3.5-5.0) g/dL Urine Color Yellow (Yellow) Urine Appearance Clear (Clear) Urine pH 5.5 (4.6-8.0) Ur Specific [place] 1.015 (1.005-1.030) Urine Protein Negative (Negative) Urine Glucose (UA) Negative (Negative) mg/dL Urine Ketones Negative (Negative) Urine Blood Negative (Negative) Urine Nitrite Negative (Negative) Urine Bilirubin Negative (Negative) Urine Urobilinogen 1.0 A (0.2) mg/dL Ur Leukocyte Esterase Negative (Negative) U Hyaline Cast (Auto) NONE SEEN (0-2) /LPF Urine Microscopic RBC 0-2 (0-5) /HPF Urine Microscopic WBC 0-2 (0-5) /HPF Ur Epithelial Cells Rare (None Seen) /HPF Urine Bacteria None Seen (None Seen) /HPF Urine Culture Reflexed NO (NO) - Progress Progress: improved Progress Note: 89-year-old male presents to our ED for evaluation of unusual behavior. CT head negative for acute intracranial pathology. Laboratory workup essentially nonremarkable. Teleneuro consultation did not find any acute pathology or reason for admission. They advised discharge with outpatient follow-up. Patient reassessed. He is well asymptomatic and functioning at his baseline. Patient has no complaints. Patient's blood pressure slightly elevated however he is due for his evening medications which he will take as soon as he gets home. The findings and neurology consultation recommendations discussed with patient's . She understands the instructions and agrees to follow-up with primary care doctor within 48 hours for reevaluation. She voices no other complaints or concerns at this time. Portions of this note were created with voice recognition technology. There may be grammatical, spelling, punctuation or sound alike errors Complexity of problem addressed is moderate acute complicated. No critical care time. Complexity of data reviewed and analyzed is extensive. Test ordered test reviewed results analyzed and correlated clinically with history and physical exam. Management discussed with neurologist. Risk of complication and or risk of morbidity/mortality of patient management is low. Patient may be discharged home with follow-up. Vital stable. Time spent to discharge patient is approximately 15 minutes. Plan of care established for shared decision making. No social determinants of health present to impede follow-up. Portions of this note were created with voice recognition technology. There may be grammatical, spelling, punctuation or sound alike errors 10/30/24 20:29 Counseled pt/family regarding: lab results, diagnosis - Departure Departure Disposition: Home Clinical Impression: Confusion, Dementia Condition: Stable Critical Care Time: No Referrals: MANJIT MALDONADO MD [Primary Care Provider] - Follow up/PCP as directed Additional Instructions: Discharge/Care Plan FADY YEN was seen on 10/30/24 in the Emergency Room. The patient was counseled regarding Diagnosis,Lab results, Imaging studies, need for follow up and when to return to the Emergency Room. Prescriptions given: Discharge Note I have spoken with the patient and/or caregivers. I have explained the patient's condition, diagnosis and treatment plan based on the information available to me at this time. I have answered the patient's and/or caregiver's questions and addressed any concerns. The patient and/or caregivers have as good understanding of the patient's diagnosis, condition and treatment plan as can be expected at this point. The vital signs have been stable. The patient's condition is stable and appropriate for discharge from the emergency department. The patient will pursue further outpatient evaluation with the primary care physician or other designated or consulting physician as outlined in the disch arge instructions. The patient and/or caregivers are agreeable to this plan of care and follow-up instructions have been explained in detail. The patient and/or caregivers have received these instruction. The patient/and or caregivers are aware that any significant change in condition or worsening of symptoms should prompt an immediate return to this or the closest emergency department or call 911.
[2024-10-30 16:11] LABS: Absolute Neutrophil Ct (ANC) 4.82 x10^3/uL (1.78-5.38); BASOPHIL % 0.1 % (0.2-1.2); Basophil (Absolute #) 0.01 x10^3/uL (0.01-0.08); Eosinophil % 6.4 % (0.8-7.0); Eosinophil (Absolute #) 0.52 x10^3/uL (0.04-0.54); Hematocrit 42.4 % (40.1-51.0); Hemoglobin 13.9 g/dL (13.7-17.5); IMMATURE GRAN # 0.03 x10^3u/L (0.001-0.031); IMMATURE GRAN % 0.4 % (0.001-0.429); Lymphocyte (Absolute #) 1.87 x10^3/uL (1.32-3.57); Lymphocytes % 22.9 % (21.8-53.1); Mean Cell Volume 92.8 fL (79.0-92.2); Mean Corpuscular Hemoglobin 30.4 pg (25.7-32.2); Mean Corpuscular Hgb Concent. 32.8 g/dL (32.3-36.5); Mean Platelet Volume 8.9 fL (9.4-12.4); Monocyte (Absolute #) 0.92 x10^3/uL (0.30-0.82); Monocytes % 11.3 % (5.3-12.2); Neutrophil % 58.9 % (34.0-67.9); Platelet Count 225 x10^3/uL (163-337); Red Blood Count 4.57 x10^6/uL (4.63-6.08); Red Cell Distribution Width 13.5 % (11.6-14.4); White Blood Count 8.2 x10^3/uL (4.23-9.07)
[2024-10-30 16:15] LABS: Appearance Clear (Clear); Bacteria None Seen /HPF (None Seen); Bilirubin Negative (Negative); Blood Negative (Negative); Epithelial Cells Rare /HPF (None Seen); Glucose, Urine Negative (Negative); Hyaline Casts NONE SEEN /LPF (0-2); Ketones Negative (Negative); Leukocyte Esterase Negative (Negative); Nitrite Negative (Negative); Ph 5.5 (4.6-8.0); Protein,Urine Dip Negative (Negative); RBC 0-2 /HPF (0-5); Specific Gravity 1.015 (1.005-1.030); WBC 0-2 /HPF (0-5)
[2024-10-30 16:31] LABS: ALBUMIN 4.1 g/dL (3.5-5.0); ANION GAP 13.1 MEQ/L (5-15); BILIRUBIN,TOTAL 1.1 mg/dL (0.2-1.3); Calcium 9.2 mg/dL (8.4-10.2); Creatinine 1 0.89 mg/dL (0.66-1.25); EST GLOMERULAR FILTRATION RATE 82.4 ML/MIN; Potassium 3.7 mmol/L (3.5-5.1); Total Protein 7.5 g/dL (6.3-8.2)
--- NOTE | 2024-10-30 16:50 | XRAY ---
Indication: Confusion. Multiple contiguous axial images obtained without contrast. Comparison: July 01, 2024 Again age-appropriate global atrophy and mild periventricular degenerative micro-ischemia bilaterally. No acute intracranial hemorrhage, abnormal extra-axial fluid collection, or mass effect. Fourth ventricle is midline without hydrocephalus. Bony calvarium intact. Again chronic complete mucoperiosteal thickening right maxillary sinus. Remaining visualized paranasal sinuses and mastoid air cells are clear. Impression: Continued nonacute senile brain with chronic right maxillary sinus disease.
--- NOTE | 2024-10-30 20:15 | PCM.CONS ---
History of Present Illness - Neuro Consultation ED Arrival Date & Time: 10/30/24 15:20 Requesting Provider: Dr. Atkinson Providers: Attending Provider: ED Provider: ALLISON ATKINSON Consulting Provider: JUAN A CANTU DO Reason for Consult: Encephalopathy cc:: The requesting physician will be sent a copy of the consult. - History of Present Illness HPI: 89yo male PMH dementia, bladder, cancer, Afib, HTN, depression presents with periodic agitation and confusion. Per , this has been a chronic problem but worse over the past few days. He will have periods of confusion, agitation, combativeness, delusion (wanting to drive car they sold 20yrs ago). They usually happen at night, sometimes in the morning. Lasts minutes but not hours. He is on Zyprexa nightly started by Bladder Cancer specialist ( doesn't know the indication). He does have dementia, short term memory impairment, usually oriented to self and location, sometimes time. Sometimes gets worse when he has UTIs per family. He is also on Eliquis for Afib. Location: Brain Quality: Encephalopathy Severity: Mild-mod Duration: Minutes to hours Timing: Intermittent Context: Dementia Associated symptoms: Delusions Modifying: Zyprexa FH: noncontributory SH: no drugs, alcohol Known stroke risk factors:: Hypertension, AFib, Dyslipidemia Review of Systems - Review of Systems Review of Systems (Narrative): Pertinent positive and negative findings as per HPI. All other systems negative. - Review of Systems Eyes (ROS): No Symptoms Ears, Nose, & Throat: No Symptoms Respiratory: No Symptoms Cardiac: No Symptoms Abdominal/Gastrointestinal: No Symptoms Musculoskeletal: No Symptoms Skin: No Symptoms Neurological: No Symptoms Psychological: No Symptoms, Hallucinations Endocrine: No Symptoms Hematologic/Lymphatic: No Symptoms - Past Medical History Past Medical History: Yes Neurological History: Migraines ENT History: Cataracts, Glaucoma Cardiac History: Hypertension Respiratory History: COPD Endocrine Medical History: No Pertinent History Musculoskelatal History: Arthritis, Osteoarthritis GI Medical History: GERD History: Bladder Cancer Pyscho-Social History: Depression Male Reproductive Disorders: No Pertinent History Comment: bladder cancer 2011. home oxygen at bedtime - Past Surgical History Past Surgical History: Yes Neuro Surgical History: No Pertinent History Cardiac History: No Pertinent History Respiratory Surgery: No Pertinent History GI Surgical History: No Pertinent History Genitourinary Surgical Hx: No Pertinent History Musculskeletal Surgical Hx: Joint Replacement, Orthopedic Surgery Male Surgical History: No Pertinent History Other Surgical History: Bilateral hip replacement, Bilateral shoulder replacement, bladder biopsy Significant Family History: no pertinent family hx - Social History Smoking Status: Never smoker Exposure to second hand smoke: No Alcohol: None Drug Use: none - Social Determinants of Health Will the patient participate in the screening: Yes Do you worry about a steady place to live?: No In the past 12 months,have you had to go without utilities?: No Have you or anyone in your house had to go without enough: No Transportation Issues: No Has anyone in your support network made you feel unsafe?: No Does the patient want assistance with any of the above?: No Physical Exam - Vital Signs Vital Signs: Vital Signs - 24 hr 10/30/24 10/30/24 10/30/24 15:31 15:40 15:50 Temperature 97.4 F Pulse Rate Respiratory 18 Rate Blood Pressure 173/84 188/81 Blood Pressure 212/105 [Right Arm] O2 Sat by Pulse 94 L 92 L Oximetry 10/30/24 10/30/24 10/30/24 16:00 16:12 16:19 Temperature Pulse Rate Respiratory Rate Blood Pressure 177/77 Blood Pressure [Right Arm] O2 Sat by Pulse 83 L 90 L Oximetry 10/30/24 10/30/24 10/30/24 16:20 16:30 16:40 Temperature Pulse Rate Respiratory Rate Blood Pressure 163/82 167/75 142/84 Blood Pressure [Right Arm] O2 Sat by Pulse 92 L 91 L 92 L Oximetry 10/30/24 10/30/24 10/30/24 16:51 17:00 17:10 Temperature Pulse Rate Respiratory Rate Blood Pressure 188/84 172/130 159/107 Blood Pressure [Right Arm] O2 Sat by Pulse 93 L 92 L 89 L Oximetry 10/30/24 10/30/24 10/30/24 17:20 17:31 17:40 Temperature Pulse Rate Respiratory Rate Blood Pressure 188/85 165/88 143/81 Blood Pressure [Right Arm] O2 Sat by Pulse 92 L 83 L 91 L Oximetry 10/30/24 10/30/24 10/30/24 17:50 18:00 18:10 Temperature Pulse Rate 69 Respiratory 18 Rate Blood Pressure 146/111 170/98 156/82 Blood Pressure [Right Arm] O2 Sat by Pulse 93 L 90 L 91 L Oximetry 10/30/24 10/30/24 10/30/24 18:20 18:31 18:41 Temperature Pulse Rate 67 66 68 Respiratory 19 18 19 Rate Blood Pressure 166/72 130/95 175/88 Blood Pressure [Right Arm] O2 Sat by Pulse 92 L 92 L Oximetry 10/30/24 10/30/24 10/30/24 18:51 19:02 19:10 Temperature Pulse Rate 65 67 Respiratory 18 19 Rate Blood Pressure 210/110 174/93 195/84 Blood Pressure [Right Arm] O2 Sat by Pulse 93 L 92 L 93 L Oximetry 10/30/24 10/30/24 10/30/24 19:20 19:30 19:40 Temperature Pulse Rate Respiratory Rate Blood Pressure 180/92 195/88 179/101 Blood Pressure [Right Arm] O2 Sat by Pulse 93 L 92 L Oximetry 10/30/24 19:56 Temperature Pulse Rate 69 Respiratory 20 Rate Blood Pressure 181/127 Blood Pressure [Right Arm] O2 Sat by Pulse 94 L Oximetry - Physical Exam Tele-Neuro Physical Exam (Narrative): Alert, oriented x2-3 (said October 2023). Fluent speech with intact comprehension. No dysarthria. VFF. EOMI. Face sensation intact. Face symmetric. Hearing slightly impaired b/l. Tongue midline. Sustains antigravity diffusely. Intact sensation to light touch throughout. - NIHSS Stroke Scale Date Completed: 10/30/24 Time Stroke Scale Completed: 15:39 Level of Consciousness: Alert Level of Questions: Answers both correctly LOC Commands: Obeys both correctly Best Gaze: Normal Visual: No visual loss Facial Palsy: Normal Motor Arm-Left: No Drift Motor Arm-Right: No Drift Motor Leg-Left: No Drift Motor Leg Right: No Drift Limb Ataxia: Absent Sensory: Normal Best Language: No apashia Dysarthria: Normal aticulation Extinction and Inattention: No Neglect Stroke Risk Level: 0 Results - Labs Lab/Micro Results: Lab Results-Last 24 Hours 10/30/24 10/30/24 10/30/24 Range/Units 15:54 16:00 16:00 WBC 8.2 (4.23-9.07) x10^3/uL RBC 4.57 L (4.63-6.08) x10^6/uL Hgb 13.9 (13.7-17.5) g/dL Hct 42.4 (40.1-51.0) % MCV 92.8 H (79.0-92.2) fL MCH 30.4 (25.7-32.2) pg MCHC 32.8 (32.3-36.5) g/dL RDW 13.5 (11.6-14.4) % Plt Count 225 (163-337) x10^3/uL MPV 8.9 L (9.4-12.4) fL Gran % 58.9 (34.0-67.9) % Immature Gran % (Auto) 0.4 (0.001-0.429) % Nucleat RBC Rel Count 0.0 (0.00-0.2) % Eos # (Auto) 0.52 (0.04-0.54) x10^3/uL Immature Gran # (Auto) 0.03 (0.001-0.031) x10^3u/L Absolute Lymphs (auto) 1.87 (1.32-3.57) x10^3/uL Absolute Monos (auto) 0.92 H (0.30-0.82) x10^3/uL Absolute Nucleated RBC 0.00 (0.00-0.012) x10^3u/L Lymphocytes % 22.9 (21.8-53.1) % Monocytes % 11.3 (5.3-12.2) % Eosinophils % 6.4 (0.8-7.0) % Basophils % 0.1 L (0.2-1.2) % Absolute Granulocytes 4.82 (1.78-5.38) x10^3/uL Basophils # 0.01 (0.01-0.08) x10^3/uL Sodium 144 (135-145) mmol/L Potassium 3.7 (3.5-5.1) mmol/L Chloride 101 (98-107) mmol/L Carbon Dioxide 33 H (22-30) mmol/L Anion Gap 13.1 (5-15) MEQ/L BUN 20 (9-20) mg/dL Creatinine 0.89 (0.66-1.25) mg/dL Estimated GFR 82.4 ML/MIN Glucose 106 (74-106) mg/dL Calcium 9.2 (8.4-10.2) mg/dL Total Bilirubin 1.10 (0.2-1.3) mg/dL AST 37 (17-59) U/L ALT 29 (0-50) U/L Alkaline Phosphatase 89 (38-126) U/L Troponin I (0.000-0.033) ng/mL Serum Total Protein 7.5 (6.3-8.2) g/dL Albumin 4.1 (3.5-5.0) g/dL Urine Color Yellow (Yellow) Urine Appearance Clear (Clear) Urine pH 5.5 (4.6-8.0) Ur Specific [place] 1.015 (1.005-1.030) Urine Protein Negative (Negative) Urine Glucose (UA) Negative (Negative) mg/dL Urine Ketones Negative (Negative) Urine Blood Negative (Negative) Urine Nitrite Negative (Negative) Urine Bilirubin Negative (Negative) Urine Urobilinogen 1.0 A (0.2) mg/dL Ur Leukocyte Esterase Negative (Negative) U Hyaline Cast (Auto) NONE SEEN (0-2) /LPF Urine Microscopic RBC 0-2 (0-5) /HPF Urine Microscopic WBC 0-2 (0-5) /HPF Ur Epithelial Cells Rare (None Seen) /HPF Urine Bacteria None Seen (None Seen) /HPF Urine Culture Reflexed NO (NO) 10/30/24 Range/Units 16:00 WBC (4.23-9.07) x10^3/uL RBC (4.63-6.08) x10^6/uL Hgb (13.7-17.5) g/dL Hct (40.1-51.0) % MCV (79.0-92.2) fL MCH (25.7-32.2) pg MCHC (32.3-36.5) g/dL RDW (11.6-14.4) % Plt Count (163-337) x10^3/uL MPV (9.4-12.4) fL Gran % (34.0-67.9) % Immature Gran % (Auto) (0.001-0.429) % Nucleat RBC Rel Count (0.00-0.2) % Eos # (Auto) (0.04-0.54) x10^3/uL Immature Gran # (Auto) (0.001-0.031) x10^3u/L Absolute Lymphs (auto) (1.32-3.57) x10^3/uL Absolute Monos (auto) (0.30-0.82) x10^3/uL Absolute Nucleated RBC (0.00-0.012) x10^3u/L Lymphocytes % (21.8-53.1) % Monocytes % (5.3-12.2) % Eosinophils % (0.8-7.0) % Basophils % (0.2-1.2) % Absolute Granulocytes (1.78-5.38) x10^3/uL Basophils # (0.01-0.08) x10^3/uL Sodium (135-145) mmol/L Potassium (3.5-5.1) mmol/L Chloride (98-107) mmol/L Carbon Dioxide (22-30) mmol/L Anion Gap (5-15) MEQ/L BUN (9-20) mg/dL Creatinine (0.66-1.25) mg/dL Estimated GFR ML/MIN Glucose (74-106) mg/dL Calcium (8.4-10.2) mg/dL Total Bilirubin (0.2-1.3) mg/dL AST (17-59) U/L ALT (0-50) U/L Alkaline Phosphatase (38-126) U/L Troponin I < 0.012 (0.000-0.033) ng/mL Serum Total Protein (6.3-8.2) g/dL Albumin (3.5-5.0) g/dL Urine Color (Yellow) Urine Appearance (Clear) Urine pH (4.6-8.0) Ur Specific Frederick (1.005-1.030) Urine Protein (Negative) Urine Glucose (UA) (Negative) mg/dL Urine Ketones (Negative) Urine Blood (Negative) Urine Nitrite (Negative) Urine Bilirubin (Negative) Urine Urobilinogen (0.2) mg/dL Ur Leukocyte Esterase (Negative) U Hyaline Cast (Auto) (0-2) /LPF Urine Microscopic RBC (0-5) /HPF Urine Microscopic WBC (0-5) /HPF Ur Epithelial Cells (None Seen) /HPF Urine Bacteria (None Seen) /HPF Urine Culture Reflexed (NO) - Radiology Orders Radiology Orders: Radiology Procedures Category Date Time Status HEAD WITHOUT CONTRAST [CT] Stat Exams 10/30/24 15:55 Completed - CT Impressions CT Head w/o contrast Status: image reviewed by me (Nothing acute, generalized atrophy) Impressions & Recommendations - ED Arrival Time ED Arrival Date & Time: ED Arrival Date and Time 10/30/24 15:20 Last known well time: - NIHSS IV Thrombolysis Standard of Care: IV thrombolysis as a standard of care in acute stroke discussed with ALLISON ATKINSON. Risk, benefits, and options of IV thrombolytic therapy for acute ischemic stroke were discussed with the patient/family FADY YEN. We discussed that use of IV tenecteplase is in line with national stroke guidelines. We discussed that risks of IV thrombolytic use include intracranial hemorrhage, other fatal bleeding risks, and angioedema. Alternatives of treatment, including not proceeding with thrombolytic therapy were discussed. - Recommendations Recommendations: -Neuro checks, NIHSS, vital signs monitoring as per post tenecteplase protocol -Repeat non contrast head CT or noncontrast MRI brain 24 hours after IV thrombolyltic administration. -Obtain STAT non contrast head CT if there are new neurological deficits, worsening of current deficits, or with complaint of severe headache. Notify Neurology HAMILTON of changes in neurological exam. -Nicardipine gtt as needed to maintain BP< 180/105 x 24hr post tenecteplase administration. -Monitor for angioedema -SCD's for DVT prophylaxis. Work up: -Basic labs (CBC, BMP, TSH+T4) if not done already. -INR,PTT if not done already -Fasting Lipid Panel and Hgb A1c -Transthroacic echocardiogram [with bubble study] -EKG + Telemetry- monitor for A-FIB Secondary Stroke Prevention -Hold off on antiplatelet therapy x 24 hr post IV thrombolytic therapy Decision to initiate antiplatelet therapy, or anticoagulation if needed, will be based on repeat imaging at 24 hour post thrombolytic administration. -If not medical contraindication, start high intensity statin. Eg. Atrovastatin 80 mg daily Risk Factor Management -HTN control: BP <180/105 for first 24 hr post tenecteplase -If diabetic, optimize glucose control: skilled nursing goal HgA1c <7 -HLD control: Long-term goal LDL <70. High intensity statin recommended. Moderate intensity statin in patients > 75 years. -Smoking Alcohol Use Drug use cessation counseling Stroke Rehabilitation: -Physical therapy, occupational therapy, speech therapy consults -Social work and case management consults for help with discharge needs. Impression and recommendation were discussed with Dr. ALLISON ATKINSON Thank you for allowing us to participate in this patient's care. Please call [facility] with questions, concerns, or change in patient's neurological status. This consult was performed via secure telemedicine audio/visual platform with [ ] RN assisting at bedside. Patient identity verified and consent obtained. TIQ recieved at [ ] Neuro Cart Time: Delays in Patient Encounter: Assessment & Plan (1) Delirium Current Visit: Yes Status: Acute Assessment & Plan: 89yo male PMH dementia, bladder, cancer, Afib, HTN, depression presents with periodic agitation and confusion. Per , this has been a chronic problem but worse over the past few days. He will have periods of confusion, agitation, combativeness, delusion (wanting to drive car they sold 20yrs ago). They usually happen at night, sometimes in the morning. Lasts minutes but not hours. He is on Zyprexa nightly started by Bladder Cancer specialist ( doesn't know the indication). He does have dementia, short term memory impairment, usually oriented to self and location, sometimes time. Suspect delirium, sundowning. No focal deficits, at baseline currently. No focality during episodes. Recommendations: -No further inpatient neurologic workup -BP management per primary -Can change Zyprexa to Seroquel 25mg nightly, increase as needed -On Eliquis for hx Afib -UA, CXR, TSH, Ammonia, B12 -F/u with PCP for management of delirium Discussed with Dr. Atkinson, Reviewed prior records and neuroimaging, discussed diagnosis and treatment with patient and family, coordinated with care team. Visit conducted over video visit, consent obtained from patient and family. Time to video: 1933 Code(s): R41.0 - DISORIENTATION, UNSPECIFIED (2) Dementia Current Visit: No Status: Chronic Code(s): F03.90 - UNSP DEMENTIA, UNSP SEVERITY, WITHOUT BEH/PSYCH/MOOD/ANX (3) Depression with anxiety Current Visit: No Status: Chronic Code(s): F41.8 - OTHER SPECIFIED ANXIETY DISORDERS (4) History of bladder cancer Current Visit: No Status: Chronic Code(s): Z85.51 - PERSONAL HISTORY OF MALIGNANT NEOPLASM OF BLADDER (5) Hypertension Current Visit: No Status: Chronic Qualifiers: Hypertension type: primary hypertension Qualified Code(s): I10 - Essential (primary) hypertension Code(s): I10 - ESSENTIAL (PRIMARY) HYPERTENSION (6) Paroxysmal atrial fibrillation Current Visit: No Status: Chronic Code(s): I48.0 - PAROXYSMAL ATRIAL FIBRILLATION - Encounter Encounter: "The entirety of this encounter was performed via Telemedicine using audio and visual "
[2024-10-30 20:36] VITALS: BP 186/78; PULSE 70; RESP 18; O2SAT 97
== END 2024-10-30 20:46 | disposition home or self-care (01) ==
LOC: ED 15:20
DX: F03.90 Unspecified dementia, unspecified severity, without behavioral disturbance, psychotic disturbance, mood disturbance, and anxiety (principal); R41.0 Disorientation, unspecified; I10 Essential (primary) hypertension; Z79.01 Long term (current) use of anticoagulants; Z79.899 Other long term (current) drug therapy
CPT/HCPCS: 36415; 70450; 80053; 81001; 84484; 85025; 99284